=== PATIENT | female | born 1945 | race Caucasian/White ===

== ENCOUNTER 2023-06-01 10:56 | Outpatient (OUT) | payer MEDICARE, OTHER, SELFPAY ==
--- NOTE | 2023-06-01 11:05 | XR_ITS ---
The [address] [address] Patient Name: MAVIS PORTER MRN: [id number] date: 1945 Sex: F Assigned Patient Location: RAD Current Patient Location: RAD Accession/Order Number: [id number] Exam Date: 06/01/2023 11:15 Report Date: 06/01/2023 11:46 At the request of: LAUREN CONNER Procedure: XR chest 2V EXAM: CHEST 2 VIEWS HISTORY: dyspnea on exertion R06.09 TECHNIQUE: PA and lateral views chest. COMPARISON: None. FINDINGS: There is bibasilar atelectasis. Blunted lateral left costophrenic recess may be scarring versus trace effusion. There is no pneumothorax. Pulmonary vasculature is within normal limits. There is aortic atherosclerosis. Heart size within normal limits. XR/XR chest 2V IMPRESSION: 1. Bibasilar atelectasis with possible trace left effusion versus scarring. No consolidation. 2. Atherosclerosis and normal heart size. Negative for pulmonary edema. Electronically authenticated by: CARSON CONLEY Date: 06/01/2023 11:46
--- NOTE | 2023-06-01 11:06 | XR_ITS ---
The [address] [address] Patient Name: MAVIS PORTER MRN: [id number] date: 1945 Sex: F Assigned Patient Location: [facility] Current Patient Location: CARD Accession/Order Number: [id number] Exam Date: 06/01/2023 11:15 Report Date: 06/01/2023 11:35 At the request of: LAUREN CONNER Procedure: XR knee LT 3V PROCEDURE: XR knee LT 3V COMPARISON: None. HISTORY: chronic pain of left knee M25.562, G89.29 FINDINGS: BONES:No acute fracture or dislocation. Moderate to severe tricompartmental osteoarthritis most significant in the anterior and lateral compartments where there is cortical irregularity and marginal osteophyte formation. Chondrocalcinosis. SOFT TISSUES:Negative. No visible soft tissue swelling. EFFUSION:Moderate suprapatellar joint effusion OTHER: Negative. XR/XR knee LT 3V IMPRESSION: Moderate to severe osteoarthritis Electronically authenticated by: MOSHE CALERO Date: 06/01/2023 11:35
== END 2023-06-01 10:57 | disposition home or self-care (01) ==
LOC: RAD 10:57
PROVIDERS: PCP Internal Medicine; Visit Provider Internal Medicine
DX: R06.09 Other forms of dyspnea (principal); M25.562 Pain in left knee; G89.29 Other chronic pain; J98.11 Atelectasis; I70.90 Unspecified atherosclerosis; M17.12 Unilateral primary osteoarthritis, left knee
CPT/HCPCS: 71046; 73562; 93242

== ENCOUNTER 2023-06-01 11:32 | Outpatient (OUT) | payer MEDICARE, OTHER, SELFPAY ==
--- NOTE | 2023-06-01 11:51 | CA_ITS ---
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: : 1945 Requested By: LAUREN CONNER Order Number: [id number] Reading MD: OLESYA GAY Interpretive Statements Predominant rhythm is sinus w/ average rate of 63 bpm Tachycardia - max rate of 134 bpm (PSVT) - 4 episodes of PSVT w/ longest duration of 6 beats Bradycardia - min rate of 42 bpm - longest episode of 2h 25min 49sec with rates between 43-53 bpm Ventricular ectopy - 14 PVC Patient triggered events: none Impression: Predominant rhythm is sinus w/ average rate of 63 bpm Fastest rate of 134 bpm (PSVT) and slowest rate of 42 bpm 14 PVC No atrial fibrillation No pauses or blocks Electronically Signed On 06-12-2023 16:14:58 EST by OLESYA GAY
== END 2023-06-01 11:33 | disposition home or self-care (01) ==
LOC: CARD 11:32
PROVIDERS: PCP Internal Medicine; Visit Provider Internal Medicine
DX: R06.09 Other forms of dyspnea (principal)
CPT/HCPCS: 93242

== ENCOUNTER 2023-06-15 07:59 | Inpatient (IN) | payer MEDICARE, OTHER, SELFPAY ==
[2023-06-15] VITALS (53 sets, daily range): BP systolic 107–194; BP diastolic 47–131; PULSE 69–113; RESP 18–48; TEMP 36.4–37.7; O2SAT 83–100; BMI 29.5; BMI 27.7
--- NOTE | 2023-06-15 | FL_ITS ---
[address] [address] Patient Name: MAVIS PORTER MRN: [id number] date: 1945 Sex: F Assigned Patient Location: SURGOUT Current Patient Location: CA Accession/Order Number: [id number] Exam Date: 06/15/2023 15:00 Report Date: 06/16/2023 08:14 At the request of: RHINA BAPTISTE Procedure: FL fluoroscopy <1hr NON-READ EXAM: FL fluoroscopy <1hr NON-READ HISTORY: Left stent placement TECHNIQUE: FINDINGS: Please see Operative Report. Electronically authenticated by: RADIOLOGIST NO Date: 06/16/2023 08:14
--- OUTSIDE RECORDS SUMMARY | 2023-06-15 08:11 | XMS_ITS | CCD ---
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 Helper Name Role Phone DR ADARSH MANRIQUE Admitting Unavailable DR ADARSH MANRIQUE Attending Unavailable DR ADARSH MANRIQUE Primary Care Unavailable DR ADARSH MANRIQUE Consulting Unavailable DR ASHWIN DUMONT Consulting Unavailable Sohail Grimes Attending Unavailable Sohail Grimes Admitting Unavailable Adarsh Manrique Primary Care Unavailable ADARSH MANRIQUE Attending Unavailable Allergies Allergy Classification Reported Allergen(s) Allergy Type Date of Onset Reaction(s) Facility (1 source) Nitrofurantoin Drug Allergy [facility] Repository (2 sources) Nitrofurantoin; Translations: [nitrofurantoin] Drug Allergy 09-14-19 19 Gastrointestinal Upset [facility] Medications Current Medications Medication Drug Class(es) Dates Sig (Normalized) Sig (Original) acetaminophen 500 mg oral tablet (1 source) Start: 09-29-2018 take 500 mg by mouth every six hours Acetaminophen Active 500 MG PO Q6H 0 September 29, 2018 12:00am aspirin 81 mg delayed release oral tablet (2 sources) Platelet Aggregation Inhibitor, Nonsteroidal Anti-inflammatory Drug Start: 07-26-2018 End: 09-29-2018 take 81 mg by mouth once daily Aspirin Active 81 MG PO Daily September 29, 2018 12:00am atorvastatin 40 mg oral tablet (2 sources) HMG-CoA Reductase Inhibitor Start: 07-26-2018 End: 09-29-2018 take 40 mg by mouth at bedtime Atorvastatin Active 40 MG PO Bedtime September 29, 2018 12:00am calcium carbonate 1250 mg / cholecalciferol 200 unt oral tablet (1 source) Vitamin D Start: 09-29-2018 take 1 tablet by mouth once daily Calcium Carbonate-Vitamin D3 (Oyster Shell Calcium-Vit D3) 500 mg(1,250mg) -200 unit Tablet Active 1 TAB PO Daily September 29, 2018 12:00am chlorhexidine gluconate 1.2 mg/ml mouthwash (2 sources) Start: 09-23-2018 End: 09-29-2018 Chlorhexidine Gluconate Active 15 ML MUCOUS MEM Three times daily 1000 September 29, 2018 12:00am cholecalciferol 0.025 mg oral tablet (2 sources) Vitamin D Start: 09-29-2018 take 1 tablet by mouth once daily Cholecalciferol (Vitamin D3) (Vitamin D3) 1,000 unit Tablet Active 1000 UNIT PO Daily 30 September 29, 2018 12:00am Start: 07-26-2018 End: 09-29-2018 take 1 capsule by mouth once daily Cholecalciferol (Vitamin D3) (Vitamin D3) 1,000 unit Capsule Discontinued 1000 UNIT PO Daily July 26, 2018 1:00am September 29, 2018 1:39pm codeine phosphate 2 mg/ml / guaiFENesin 20 mg/ml oral solution (1 source) Opioid Agonist Start: 11-03-2018 take 1 mL by mouth every four to six hours Codeine-Guaifenesin Active 10 ML PO EVERY 4-6 HOURS 200 November 03, 2018 12:00am docusate sodium 100 mg oral capsule (1 source) Start: 09-29-2018 take 100 mg by mouth twice daily Docusate Sodium Active 100 MG PO Twice daily 60 September 29, 2018 12:00am Lidocaine (1 source) Antiarrhythmic, Amide Local Anesthetic Start: 09-29-2018 apply 1 dose topically once daily Lidocaine (Aspercreme (Lidocaine)) 4 % Adhesive Patch,Medicated Active 1 PATCH TOPICAL Daily 30 September 29, 2018 12:00am Multivitamin With Folic Acid (Thera) 400 mcg Tablet (1 source) Start: 09-29-2018 take 1 tablet by mouth once daily Multivitamin With Folic Acid (Thera) 400 mcg Tablet Active 1 TAB PO Daily 30 September 29, 2018 12:00am omeprazole 20 mg delayed release oral capsule (1 source) Proton Pump Inhibitor Start: 09-29-2018 take 20 mg by mouth once daily Omeprazole Active 20 MG PO Daily 30 September 29, 2018 12:00am ondansetron 4 mg oral tablet (1 source) Serotonin-3 Receptor Antagonist Start: 10-05-2018 take 1 tablet by mouth three to four times daily Ondansetron Hcl (Zofran) 4 mg Tablet Active 4 MG PO 3 to 4 times per day October 05, 2018 12:00am QUEtiapine 25 mg oral tablet (2 sources) Atypical Antipsychotic Start: 09-23-2018 End: 09-29-2018 take 12.5 mg by mouth once daily at bedtime Quetiapine Active 12.5 MG PO Daily at bedtime 15 September 29, 2018 12:00am sennosides, fpc 8.6 mg oral tablet (1 source) Start: 09-29-2018 take 2 tablets by mouth once daily Sennosides (Senna Lax) 8.6 mg Tablet Active 2 TAB PO DAILY@12 60 September 29, 2018 12:00am topiramate 25 mg oral tablet (2 sources) Start: 07-26-2018 End: 09-29-2018 take 1 tablet by mouth once daily Topiramate (Topamax) 25 mg Tablet Active 25 MG PO Daily 30 September 29, 2018 12:00am Completed/Discontinued Medications Medication Drug Class(es) Dates Sig (Normalized) Sig (Original) acetaminophen 325 mg / HYDROcodone bitartrate 5 mg oral tablet (2 sources) Opioid Agonist Start: 9 End: 9 take 2 tablets by mouth every six hours Hydrocodone-Acetamino phen Discontinued 2 TAB PO Every 6 hours 56 7 September 23, 2018 September 29, 2018 1:39pm benzonatate 100 mg oral capsule (2 sources) Non-narcotic Antitussive Start: 9 End: 9 take 1 capsule by mouth three times daily Benzonatate (Tessalon Perles) 100 mg Capsule Discontinued 100 MG PO Three times daily 60 20 November 03, 2018 12:00am November 03, 2018 4:24pm Calcium Carb And Citrate-Vitd3 (Citracal-D3 Slow Release) 600 mg calcium- 500 unit Tablet Extended Release (1 source) Start: 9 End: 9 take 1 tablet by mouth once daily Calcium Carb And Citrate-Vitd3 (Citracal-D3 Slow Release) 600 mg calcium- 500 unit Tablet Extended Release Discontinued 1 TAB PO Daily September 13, 2018 12:00am September 29, 2018 1:39pm Calcium Phosphate-Vitamin D3 (Citracal-D3 Gummies) 250 mg calcium- 500 unit Tablet,Chewable (1 source) Start: 9 End: 9 take 1 tablet by mouth once daily Calcium Phosphate-Vitamin D3 (Citracal-D3 Gummies) 250 mg calcium- 500 unit Tablet,Chewable Discontinued 1 TAB PO Daily July 26, 2018 1:00am September 13, 2018 2:27pm cephalexin 500 mg oral capsule (1 source) Cephalosporin Antibacterial Start: 9 End: 9 take 500 mg by mouth four times daily Cephalexin Discontinued 500 MG PO Four times daily 16 4 September 23, 2018 12:00am September 29, 2018 1:39pm heparin sodium, porcine 5000 unt/ml injectable solution (1 source) Unfractionated Heparin, Anti-coagulant Start: 9 End: 9 inject 5000 [IU] by subcutaneous injection every twelve hours Heparin (Porcine) Discontinued 5000 UNIT SUBCUT Every 12 hours September 23, 2018 12:00am September 29, 2018 1:39pm methylPREDNISolone 4 mg oral tablet (1 source) Corticosteroid Start: 9 End: 9 take 24 mg by mouth once daily Methylprednisolone Discontinued 24 MG PO Daily September 23, 2018 12:00am September 29, 2018 1:39pm Multivitamin (Multiple Vitamins) Tablet (1 source) Start: 9 End: 9 take 1 tablet by mouth once daily Multivitamin (Multiple Vitamins) Tablet Discontinued 1 TAB PO Daily August 03, 2018 1:00am September 29, 2018 1:39pm oxyCODONE hydrochloride 5 mg oral tablet (1 source) Opioid Agonist Start: 9 End: 9 take 5 mg by mouth every four hours Oxycodone Discontinued 5 MG PO Every 4 hours 28 7 September 29, 2018 November 03, 2018 3:43pm raNITIdine 150 mg oral tablet (1 source) Histamine-2 Receptor Antagonist Start: 9 End: 9 take 1 tablet by mouth twice daily Ranitidine Hcl (Zantac) 150 mg tablet Discontinued 150 MG PO Twice daily August 12, 2018 12:00am September 13, 2018 2:29pm Problems Problem Classification Problem Date Documented Date Episodic/Chronic Administrative/socia l admission (1 source) Other reduced mobility; Translations: [Impaired mobility and activities of daily living] 02-23-2019 Episodic Calculus of urinary tract (1 source) Kidney stone; Translations: [Calculus of kidney] 02-23-2019 Episodic Cancer of bronchus; lung (3 sources) Malignant tumor of lung; Translations: [Malignant neoplasm of unspecified part of left bronchus or lung] 02-23-2019 Chronic Disorders of lipid metabolism (1 source) Hyperlipidemia; Translations: [Hyperlipidemia, unspecified] 02-23-2019 Chronic Diverticulosis and diverticulitis (1 source) Diverticular disease; Translations: [Diverticulosis of intestine, part unspecified, without perforation or abscess without bleeding] 02-23-2019 Chronic Esophageal disorders (1 source) Gastroesophageal reflux disease; Translations: [Gastro-esophageal reflux disease without esophagitis] 02-23-2019 Chronic Headache; including migraine (1 source) Migraine; Translations: [Migraine, unspecified, not intractable, without status migrainosus] 02-23-2019 Chronic Neoplasms of unspecified nature or uncertain behavior (1 source) Neoplastic disease of uncertain behavior; Translations: [Neoplasm of uncertain behavior, unspecified] 10-06-2018 Episodic Other endocrine disorders (1 source) Disorder of adrenal gland; Translations: [Disorder of adrenal gland, unspecified] 11-04-2018 Chronic Other injuries and conditions due to external causes (1 source) Injury of face; Translations: [Unspecified injury of face, initial encounter] 02-23-2019 Episodic Other nervous system disorders (1 source) Postoperative pain ; Translations: [Other acute postprocedural pain] 02-23-2019 Episodic Other screening for suspected conditions (not mental disorders or infectious disease) (4 sources) Encounter for screening mammogram for malignant neoplasm of breast; Translations: [ENC SCR MAMMO MALIG NEOPLASM BREAST] Onset: 08-24-2022 Episodic Residual codes; unclassified (1 source) Family history of malignant neoplasm of other organs or systems; Translations: [FAM HX MALIG NEOPLASM OTH ORGN/SYS] Onset: 08-27-2022 Episodic Residual codes; unclassified (1 source) Patient encounter status; Translations: [Encounter for prophylactic measures, unspecified] 02-23-2019 Episodic Residual codes; unclassified (1 source) History of thoracic surgery; Translations: [Other specified postprocedural states] 02-23-2019 Episodic Thyroid disorders (1 source) Thyroid nodule; Translations: [Nontoxic single thyroid nodule] 02-23-2019 Chronic Unclassified (1 source) R91.1 - Solitary pulmonary nodule; Translations: [R91.1 - Solitary pulmonary nodule] Onset: 04-30-2021 Urinary tract infections (1 source) Urinary tract infectious disease; Translations: [Urinary tract infection, site not specified] 02-23-2019 Episodic Results Test Name Value Interpretation Reference Range Facil ity MG MAMM SCREEN 3D MARCOS CADon 08-24-2022 MG MAMM SCREEN 3D MARCOS CAD Patient: MAVIS PORTER Exam Date: 08/24/2022 : 1945 Gender:F Ordering : DR ADARSH MANRIQUE M.D. Admission #: [id number] Family : Order #: [id number] CLICK HERE TO VIEW EXAM RADIOLOGY REPORT PROCEDURE: MAMMOGRAM SCREENING 3D BILATERAL CAD COMPARISON: MG MAMM MARCOS DIAG W CAD, 06/24/2020. MG MAMM LT DIAG W CAD, 12/13/2019. MG MAMM SCREEN MARCOS W CAD, 01/03/2015. INDICATIONS: Screening mammography Calculator Name NCI Breast Cancer Risk Assessment Tool 5 Year Breast Cancer Risk 3.30% Lifetime Breast Cancer Risk 6.70% Personal Breast Cancer No Personal Ovarian Cancer No Treatments None Family Cancers Brother with mouth cancer at age 70. LOCATION: [facility] BREAST COMPOSITION: Heterogeneously dense,which may obscure small masses. FINDINGS: DIAGNOSTIC CATEGORY 2--BENIGN FINDING: RIGHT BREAST: No significant suspicious finding. Scattered benign-appearing calcifications are present. No significant change has occurred. LEFT BREAST: No significant suspicious finding. Scattered benign-appearing calcifications are present. Resolution of previously seen cyst within lower-outer quadrant. RECOMMENDATIONS: ROUTINE MAMMOGRAM AND CLINICAL EVALUATION IN 12 MONTHS. PLEASE NOTE: A NORMAL MAMMOGRAM DOES NOT EXCLUDE THE POSSIBILITY OF BREAST CANCER. A CLINICALLY SUSPICIOUS PALPABLE LUMP SHOULD BE BIOPSIED. Dictated by: Ashwin Dumont M.D. on 08/24/2022 at 12:06 Approved by: Ashwin Dumont M.D. on 08/24/2022 at 12:10 [place] [facility] RAD - MISCon 03-11-2021 RAD - MISC [id number] 0CD:127 [facility] Reminderson 03-05-2021 Reminders - From: Danyell Alvarado To: EU - Clinical; Sent: 03/03/2021 14:31:05 EDT Show up: 03/04/2021 14:30:00 EDT Subject: KUB Due Date/Time: 03/05/2021 14:30:00 EDT Reminder/Recall SHOW PRW KUB done 03/04/21 at [facility] pt may need repeat ESWL on 03/06/21 Message sent to PRW to review KUB [facility] RAD - MISCon 03-04-2021 RAD - MISC [id number] 0CD:127 [facility] RAD - MISC [id number] 0CD:127 [facility] Operative Reporton Operative Report [id number] 0CD:127 [facility] Lab Reportson 02-25-2021 Lab Reports [id number] 0CD:127 [facility] Consultation Noteon 02-07-20 Consultation Note [id number] 0CD:127 [facility] Lab Reportson 01-22-2021 Lab Reports [id number] 0CD:127 [facility] ECG 12-Leadon 01-17-2021 ECG 12-Lead [id number] CD:127 [facility] Lab Reportson 01-17-2021 Lab Reports [id number] 0CD:127 [facility] RAD - Ultrasound Reporton RAD - Ultrasound Report [id number] 0CD:127 [facility] Reminderson 01-16-2021 Reminders - From: Danyell Alvarado To: EU - Clinical; Sent: 01/10/2021 10:04:40 EDT Show up: 01/14/2021 10:04:00 EDT Subject: renal US Due Date/Time: 01/17/2021 10:04:00 EDT Reminder/Recall Order was faxed to [facility] to sched pt for renal US (I had left 2 messages but could not get anyone on the phone to schedule) They will call pt to schedule. Show PRW results, pt scheduled for ESWL renal us scanned in the chart today 01/14/21 US scanned to chart is from 2019. L/m on [facility] central sched to see if they schedule this appt with pt.LG [facility] Ambulatory Clinical Summaryo n 01-06-2021 Ambulatory Clinical Summary {[id number]}CD:[id number] [facility] Patient Educationon 01-07-20 Patient Education Urology Kidney Stones Kidney stones are rock-like masses that form inside of the kidneys. Kidneys are organs that make pee (urine). A kidney stone may move into other parts of the urinary tract, including: ? The tubes that connect the kidneys to the bladder (ureters). ? The bladder. ? The tube that carries urine out of the body (urethra). Kidney stones can cause very bad pain and can block the flow of pee. The stone usually leaves your body (passes) through your pee. You may need to have a doctor take out the stone. What are the causes? Kidney stones may be caused by: ? A condition in which certain glands make too much parathyroid hormone (primary hyperparathyroidism). ? A buildup of a type of crystals in the bladder made of a chemical called uric acid. The body makes uric acid when you eat certain foods. ? Narrowing (stricture) of one or both of the ureters. ? A kidney blockage that you were born with. ? Past surgery on the kidney or the ureters, such as gastric bypass surgery. What increases the risk? You are more likely to develop this condition if: ? You have had a kidney stone in the past. ? You have a family history of kidney stones. ? You do not drink enough water. ? You eat a diet that is high in protein, salt (sodium), or sugar. ? You are overweight or very overweight (obese). What are the signs or symptoms? Symptoms of a kidney stone may include: ? Pain in the side of the belly, right below the ribs (flank pain). Pain usually spreads (radiates) to the groin. ? Needing to pee often or right away (urgently). ? Pain when going pee (urinating). ? Blood in your pee (hematuria). ? Feeling like you may vomit (nauseous). ? Vomiting. ? Fever and chills. How is this treated? Treatment depends on the size, location, and makeup of the kidney stones. The stones will often pass out of the body through peeing. You may need to: ? Drink more fluid to help pass the stone. In some cases, you may be given fluids through an IV tube put into one of your veins at the hospital. ? Take medicine for pain. ? Make changes in your diet to help keep kidney stones from coming back. Sometimes, medical procedures are needed to remove a kidney stone. This may involve: ? A procedure to break up kidney stones using a beam of light (laser) or shock waves. ? Surgery to remove the kidney stones. Follow these instructions at home: Medicines ? Take [id number] and prescription medicines only as told by your doctor. ? Ask your doctor if the medicine prescribed to you requires you to avoid driving or using heavy machinery. Eating and drinking ? Drink enough fluid to keep your pee pale yellow. You may be told to drink at least 8?10 glasses of water each day. This will help you pass the stone. ? If told by your doctor, change your diet. This may include: ? Limiting how much salt you eat. ? Eating more fruits and vegetables. ? Limiting how much meat, poultry, fish, and eggs you eat. ? Follow instructions from your doctor about eating or drinking restrictions. General instructions ? Collect pee samples as told by your doctor. You may need to collect a pee sample: ? 24 hours after a stone comes out. ? 8?12 weeks after a stone comes out, and every 6?12 months after that. ? Strain your pee every time you pee (urinate), for as long as told. Use the strainer that your doctor recommends. ? Do not throw out the stone. Keep it so that it can be tested by your doctor. ? Keep all follow-up visits as told by your doctor. This is important. You may need follow-up tests. How is this prevented? To prevent another kidney stone: ? Drink enough fluid to keep your pee pale yellow. This is the best way to prevent kidney stones. ? Eat healthy foods. ? Avoid certain foods as told by your doctor. You may be told to eat less protein. ? Stay at a healthy weight. Where to find more information ? National Kidney Foundation (NKF): www.kidney.org ? U[employer] Care Foundation (UCF): www.urologyhealth.org Contact a doctor if: ? You have pain that gets worse or does not get better with medicine. Get help right away if: ? You have a fever or chills. ? You get very bad pain. ? You get new pain in your belly (abdomen). ? You pass out (faint). ? You cannot pee. Summary ? Kidney stones are rock-like masses that form inside of the kidneys. ? Kidney stones can cause very bad pain and can block the flow of pee. ? The stones will often pass out of the body through peeing. ? Drink enough fluid to keep your pee pale yellow. This information is not intended to replace advice given to you by your health care provider. Make sure you discuss any questions you have with your health care provider. Document Released: 11/02/2008 Document Revised: 10/03/2019 Document Reviewed: 10/03/2019 Elsevier Patient Education ? 2019 [employer] Airam Deras [facility] Urology Office/Clinic Noteon 01-06-2021 Urology Office/Clinic Note Chief Complaint 1 year f/u HPI Staff Pt is here for 1 year f/u. Previous dx of personal hx of kidney stones. Most current KUB done 07/30/2020 showed left nephrolithiasis, a large oval calcification at the superior margin of the left kidney, likely external to the kidney. Dysuria: no Incomplete bladder emptying: no Hematuria: no Frequency: every 2-3 hours Urgency: no Nocturia: 1x Stream: moderate with no straining Leaking: very little Post void dripping: very little Wearing pads/ Depends: no Urge incontinence: no Stress incontinence: yes Incontinence without Sensory Awareness: no Abdominal pain: pt states a little tenderness Flank pain: no Sexual complaints: no History of Present Illness Reviewed UA and KUB. There have been no associated fever, chills, flank pain or blood in the urine. Pt. denies any pain/burning with urination at this time. Review of Systems PHQ Score Initial Depression Screen Score: 0 ROS - Provider Constitutional: denies weight loss, denies hot flashes. Eyes: denies eye problems. Gastrointestinal: denies nausea, denies vomiting. Cardiovascular: denies chest pain or angina. Integumentary: no dryness Musculoskeletal: denies musculoskeletal symptoms. ENMT: denies otolaryngeal symptoms. Respiratory: no shortness of breath. Heme/Lymph: denies easy bleeding tendency, denies easy bruising tendency. Psychiatric: no confusion, no anxiety. Genitourinary: denies vaginal discharge, denies incontinence, denies dysuria, denies hematuria, denies urinary frequency, denies amenorrhea, denies menorrhagia, denies abnormal bleeding, denies pelvic pain, denies genital sores, and denies decreased libido. Physical Exam Vitals & Measurements HR: 63(Peripheral) RR: 16 BP: 141/67 HT: 153.0 cm HT: 153 cm WT: 75.0 kg WT: 75 kg BMI: 32.04 General Appearance: alert , no acute distress, well nourished, well developed female. Genitourinary: bladder nonpalpable, no flank pain. Assessment/Plan 1. Kidney stone (N20.0: Calculus of kidney) KUB done on 07/30/2020 shows several small stones of the left kidney along with an oval 20 x 14mm hyperdense structure at the superior margin of the left kidney. To verify if the stone is in the kidney, will have pt. obtain a renal us. Once verified, we'll go forward w/ Lt. ESWL/possible stent placement. The procedure risks, benefits, details and treatment alternatives have been discussed with the patient. These include blood in the urine, infection, bleeding around the kidney, kidney bruising, inability to break up the stone, need for blood transfusion, blockage from stone fragments, and need for additional procedures, among others. Full informed consent has been obtained. Will order General anesthesia. 2. UTI (urinary tract infection) (N39.0: Urinary tract infection, site not specified) she is feeling run down. Pos. UA today. Will start pt. on Keflex 500mg bid for 1wk. Discussed the medication side effects, and the patient will monitor closely for these, as well as for symptom improvement. If severe side effects occur, the medication should be stopped and the office notified. Script sent to [facility]. I have reviewed the previous health record information and history for this pt. from Dr. Sandy. Follow-up With When Contact Information VIKA JOHNS, Sukumar Hightower, URL [address] [place] [address]- [phone] Additional Instructions: Patient Education Kidney Stones, Witk-qa-[id number] I, Pricilla Bernal , personally scribed for Dr. Sandy on 01/06/2021 11:40:19. . Documentation recorded by the scribe, Pricilla Bernal, accurately reflects the services(s) I performed and decisions made by me. Authenticated by Dr. Sandy on 01/06/2021 11:41:44. Problem List/Past Medical History Ongoing Acute head injury Atypical migraine Cancer of abdomen cyst Hyperlipidemia Hypertension Kidney stone Personal history of kidney stones UTI (urinary tract infection) UTI symptoms Historical No qualifying data Procedure/Surgical History Biopsy of breast, Colonoscopy, Cystoscopy, History of tonsillectomy. Medications aspirin 81 mg oral tablet, Oral, Daily atorvastatin, Oral, Daily Citracal Plus Bone Density Builder, Oral, Daily Keflex 500 mg Cap, 500 mg= 1 cap(s), Oral, BID latanoprost ophthalmic, qPM Simbrinza 0.2%-1% ophthalmic suspension, BID topiramate, 25 mg, Oral Vitamin D3 Allergies No Known Allergies Social History Tobacco Never (less than 100 in lifetime) Tobacco Use:., 01/01/2020 Family History Diabetes mellitus type 1: Mother and Father. Heart disease: Father. Hypertension: Mother. Stroke: Mother. Immunizations Vaccine Date Status SARS-CoV-2 (COVID-19) mRNA BNT-162b2 vax 08/15/2020 Recorded SARS-CoV-2 (COVID-19) mRNA BNT-162b2 vax 07/25/2020 Recorded Lab Results Ambulatory Point of Care Results Bilirubin Urine Dipstick: Negative (01/06/21 (more content not included)... [facility] Comment on above: Result Comment: Elec tronically Signed By: Sukumar SANDY MD\.br\Date and Time Signed: 01/06/21 11:41 EDT\.br\Electronically Co-Signed By: Pricilla Bernal MA\.br\Date and Time Co-Signed: 01/06/21 11:40 EDT RAD - MISCon 07-30-2020 RAD - MISC [id number] 0CD:127 [facility] Encounters Encounter Date Encounter Type Care Provider Facility Start: 05-26-2023 End: 05-26-2023 ambulatory ADARSH MANRIQUE Not Available Start: 08-24-2022 End: 08-25-[address] ADARSH MANRIQUE Facility: Start: 04-30-2021 End: 04-30-2021 [facility] Payers Date Payer Category Payer Self-pay [id number] 1958 Medicare [id number] 1958 Private Health Insurance [id number] 1945 Unknown [id number] 1945 Unknown [id number] Unknown [id number] Conversion Insurance [id number] Unknown [id number] Social History Date Type Detail Facility Tobacco smoking stat [facility] Unknown if ever smoked [facility] Work Phone: Start: 1945 Sex Assigned At Female F [facility] Medical Equipment Procedure Code Equipment Code Equipment Origin al Text Equipment Identifier Dates Thoracotomy PROGEL PLEURAL A IR LEAK FDA Start: 09-20-2018 Evaluation note Note Date & Type Note Facility Evaluation note No assessment information availa ble [facility] Work Phone: Summary Purpose Family History No Family History Records Found Relationship Condition Age at Onset Recorded Date/T dianna father Type 2 diabetes mellitus Unknown Myocardial infarction Unknown Hypertension Unknown Not Specified Type 2 diabetes mellitus Unknown Congestive heart failure Unknown Cerebrovascular accident (CVA) Unknown sister Malignant neoplasm of breast Unknown brother Malignant neoplasm of throat Unknown Cardiac disease Unknown brother Myocardial infarction Unknown Advance Directives No Advanced Directives Records FoundNo Advanced Directives Records FoundNo Advanced Directives Records FoundNo Advanced Directives Records Found Additional Source Comments INFORMATION SOURCE (unrecogn ized section and content) DATE CREATED AUTHOR 03/12/2021 [facility] DATE CREATED AUTHOR AUTHOR'S ORGANIZ ATION 09/01/[address] DATE CREATED AUTHOR AUTHOR'S ORGANIZ ATION 01/30/2023 [facility] DATE CREATED AUTHOR AUTHOR'S ORGANIZ ATION 05/27/2023 [facility] EPIC Goals (unrecognized section and content) Goals may be documented in a n alternate section FOR RECORDS PERTAINING TO PATIENTS WHO ARE OR HAVE BEEN ENROLLED IN A CHEMICAL DEPENDENCY/SUBSTANCEABUSE PROGRAM, SOME INFORMATION MAY BE OMITTED. This clinical summary was aggregated from multiple sources. Caution should be exercised in using it in the provision of clinical care. This summary normalizes information from multiple sources, and as a consequence, information in this document may materially change the coding, format and clinical context of patient data. In addition, data may be omitted in some cases. CLINICAL DECISIONS SHOULD BE BASED ON THE PRIMARY CLINICAL RECORDS. [employer] provides no warranty or guarantee of the accuracy or completeness of information in this document.
--- NOTE | 2023-06-15 08:25 | CT_ITS ---
The [address] [address] Patient Name: MAVIS PORTER MRN: [id number] date: 1945 Sex: F Assigned Patient Location: ER Current Patient Location: ER Accession/Order Number: [id number] Exam Date: 06/15/2023 09:15 Report Date: 06/15/2023 10:05 At the request of: TALISHA KEVIN Procedure: CT abdomen pelvis w con EXAM: CT abdomen pelvis w con HISTORY: pain left side abdominal pain, nausea for one day COMPARISON: CT abdomen and CT pelvis studies dated 05/12/2019 TECHNIQUE: CT abdomen and CT pelvis studies were performed with the use of intravenous contrast. Multiple axial images were obtained. Reformatted coronal and sagittal images were obtained and reviewed. FINDINGS: Abdomen: Likely mild to moderate atelectatic and/or fibrotic changes in the right lower lung field with minimal changes in the left lower lung field. Infiltrative changes would be less likely. Views of the liver demonstrate a 0.8 cm area of decreased attenuation in the inferior right lobe compatible with cyst slightly increased in size since prior exam. Likely small 0.6 cm cyst in the superior left kidney similar to the prior study. Gallbladder appears grossly unremarkable. Adrenal glands appear grossly unremarkable. Pancreas appears grossly unremarkable. Stomach appears grossly unremarkable. Bowel loops appear grossly unremarkable. Atherosclerotic calcifications within portions of the abdominal aorta. No evidence of aneurysm. No evidence of adenopathy in the retroperitoneum. Likely few scattered right renal cysts measuring up to 1 cm with likely few parapelvic right renal cysts measuring up to 1.2 cm. Likely a few small nonobstructive right renal calculi measuring 2 mm duplicated right renal collecting system is noted. With ureters appearing to join proximally. Multiple scattered nonobstructive left renal calculi measuring up to 4 mm. Moderate parapelvic left renal cysts likely fairly similar to prior study. A few small areas of decreased attenuation in the left kidney measuring 0.6 cm or less to small qualify with certainty though likely representing cysts. There is interval likely mild to moderate left hydronephrosis and proximal left hydroureter to the level of an approximately 6 x 4 x 4 mm calculus in the proximal left ureter with the smaller adjacent calculus superior to it, the larger calculus likely causes early and/or moderate obstructive uropathy on the left. Dense left renal nephrogram on delayed images without contrast in the left renal pelvis or ureter on delayed images. Mild enhancement of the left renal pelvis and proximal left ureteral wall may be related to mild ureteritis. Obstructing calculus noted on series 4 axial image 65. Tiny fat filled umbilical hernia without bowel content. Pelvis: No obvious distal ureteral calculus. No obvious bladder calculus or mass. No significant bladder wall thickening. Uterus appears grossly unremarkable. Nonspecific right adnexal calcification similar to prior study not felt to be acutely significant. Increased pelvic vascularity along the left uterine wall which can be correlated for pelvic congestion syndrome, this appears mildly increased since prior exam. Perirectal fat planes appear grossly intact. Mild diverticulosis of the sigmoid colon without acute diverticulitis. Vascular calcifications within portions of the iliofemoral arteries. No evidence of aneurysm. No evidence of adenopathy. The appendix is visualized and appears unremarkable. Bilateral spondylolysis at L5 without obvious associated spondylolisthesis at L5-S1. Moderate degenerative changes in the lumbar spine with slight convexity to the right. Mild degenerative changes about the hip joints. CT/CT abdomen pelvis w con IMPRESSION: CT abdomen and CT pelvis studies demonstrate early and/or moderate obstructive uropathy on the left secondary to an approximately 6 x 4 x 4 mm calculus in the proximal left ureter with a smaller adjacent calculus superior to it. Bilateral nonobstructive renal calculi more prominent and numerous on the left as noted. Bilateral parapelvic renal cysts more prominent on the left. A few small cortical cysts bilaterally. Colon diverticulosis without definite evidence of acute diverticulitis. Increased vascularity along the left uterine wall, nonspecific, correlate for possible pelvic congestion syndrome. Tiny fat filled umbilical hernia similar to the prior study. Likely small hepatic cyst. Likely small splenic cyst. Electronically authenticated by: BEN OCHOA Date: 06/15/2023 10:05
--- NOTE | 2023-06-15 08:27 | ED.GENADUL1 ---
HPI - General Adult General Chief complaint: Abdominal Pain Stated complaint: ABD PAIN Time Seen by Provider: 06/15/23 08:20 Source: patient Mode of arrival: walk-in Limitations: no limitations History of Present Illness HPI narrative: Patient is a 78-year-old female who is presenting to the Emergency Room today with chief complaint of left lower quadrant pain this started last evening. Patient's also been having nausea and vomiting/dry heaving since last evening as well. Patient has old had one abdominal surgery in her past, it was approximately 3 years ago For diverticulitis. Patient had a surgery here. Patient has recently had a Holter monitor as well because placed by Dr. Manrique. Patient still has her gallbladder, appendix, uterus and ovaries. Patient has no chest pain or shortness of breath. Patient states that she did have a kidney stone, approximate 5-10 years ago. Patient had urinary dysuria as well. Patient's sister is at bedside. Patient states that she is somewhat forgetful to her medical history secondary previous accident with brain injury. Patient was a home by herself. Other acute complaints. . All systems are negative except as noted/marked. All systems reviewed and otherwise negative. . Nurses note and vital signs reviewed and patient is not hypoxic. General: The patient appears Mild distress secondary to pain, nausea intermittent dry heaving/spitting up.. Patient is resting uncomfortably on cart. Patient is not toxic, lethargic, or listless Skin: Warm, dry, no pallor noted. There is no rash noted. No petechiae, purpura. Head: Normocephalic, atraumatic Eye: Normal conjunctiva, no drainage, EOMI. PERRL; Chronic left eye changes Ears, Nose, Mouth, and Throat: oral mucosa is moist. Nares patent. Mouth without vesicles. Cardiovascular: Regular Rate and Rhythm, no murmur, gallop, rub Respiratory: Patient is in no distress, no accessory muscle use, lungs are clear to auscultation, no wheezing, rales or rhonchi Back: non-tender, no CVA tenderness bilaterally to percussion. No CT LS midline pain GI: soft, obese, mod LLQ and mild left flank TTP, othewise no tenderness to palpation, no masses appreciated. No rebound, guarding, or rigidity noted. No flank pain bilateral, No distention. Mild suprapubic tenderness palpation. Musculoskeletal: Patient has full range of motion of all of the extremities, no motor, sensory, or focal neurological deficits Neurological: A&O x3, normal speech Psychiatric: Cooperative Related Data Home Medications Medication Instructions Recorded Confirmed atorvastatin 40 mg tablet 40 mg PO DAILY 06/15/23 06/15/23 omeprazole 40 mg capsule,delayed 40 mg PO DAILY 06/15/23 06/15/23 release topiramate 25 mg tablet 25 mg PO Q12H 06/15/23 06/15/23 Allergies Allergy/AdvReac Type Severity Reaction Status Date / Time No Known Drug Allergies Allergy Verified 06/15/23 08:08 Exam Constitutional Vital Signs, click to edit/add: Last Vital Signs Temp 97.5 F L 06/15/23 08:08 Pulse 74 06/15/23 08:08 Resp 18 06/15/23 08:08 BP 185/84 H 06/15/23 13:30 Pulse Ox 94 L 06/15/23 12:28 O2 Del Method Room Air 06/15/23 08:08 Course Vital Signs Vital signs: Vital Signs Temperature 97.5 F L 06/15/23 08:08 Pulse Rate 74 06/15/23 08:08 Respiratory Rate 18 06/15/23 08:08 Blood Pressure 183/93 H 06/15/23 08:08 Pulse Oximetry 96 06/15/23 08:08 Oxygen Delivery Method Room Air 06/15/23 08:08 Temperature 97.5 F L 06/15/23 08:08 Pulse Rate 74 06/15/23 08:08 Respiratory Rate 18 06/15/23 08:08 Blood Pressure 185/84 H 06/15/23 13:30 Pulse Oximetry 94 L 06/15/23 12:28 Oxygen Delivery Method Room Air 06/15/23 08:08 Medical Decision Making [facility] Narrative Medical decision making narrative: Patient had IV established, was given Zofran, Compazine, Toradol, and morphine. Patient will be given IV fluids, check lab work and also CT of the abdomen and pelvis. Patient's BUN is slightly elevated, creatinine normal. Patient has no significant elevation of white blood cell count, no bands. Patient Zofran, Compazine, Toradol, morphine has helped with nausea and pain. Patient was given 1 L of IV fluid. Patient has nitrates in her urine, patient was given 1 g Rocephin. [address] Crews To discuss patient's case. [address] Crews and she stated that patient could have a stent placed this afternoon. Patient agrees with this. Patient is not diabetic, only a baby aspirin a day. Patient has had nothing needed drink since last night. She had nothing to eat or drink at home this morning. Patient will remain nothing by mouth. Patient will be sent to surgery and Dr. Crews will be here in several hours after she finishes a procedure at [facility]'s 1440 Patient was taken to surgery by surgical staff. Daughter was at bedside. Patient was given a 2nd dose of Zofran help with some nausea, she did not want any additional pain medication. Patient had no other acute, locations. Lab Data Labs: Lab Results 06/15/23 Range/Units 08:30 WBC 11.8 H (4.0-11.0) 10^3/uL RBC 4.73 (4.20-5.40) 10^6/uL Hgb 14.3 (12.0-16.0) g/dL Hct 42.4 (36.0-48.0) % MCV 89.6 (81.0-99.0) fL MCH 30.2 (26.7-34.0) pg MCHC 33.7 (29.9-35.2) g/dL RDW 13.5 (11.0-15.0) % Plt Count 493 H (150-450) 10^3/uL MPV 9.9 (9.5-13.5) fL Neut % (Auto) 87.4 H (43.0-75.0) % Lymph % (Auto) 7.9 L (20.5-60.0) % Pike % (Auto) 3.1 (1.7-12.0) % Eos % (Auto) 0.3 L (0.9-7.0) % Baso % (Auto) 0.6 (0.2-2.0) % Neut # (Auto) 10.3 H (1.4-6.5) 10^3/uL Lymph # (Auto) 0.9 L (1.2-3.8) 10^3/uL Pike # (Auto) 0.4 (0.3-0.8) 10^3/uL Eos # (Auto) 0.0 (0.0-0.7) 10^3/uL Baso # (Auto) 0.1 (0.0-0.1) 10^3/uL Abs Immat Gran (auto) 0.08 H (0.00-0.03) 10^3/uL Imm/Tot Granulo (auto) 0.7 H (0.0-0.5) % Sodium 140 (136-145) mmol/L Potassium 3.9 (3.5-5.1) mmol/L Chloride 102 (98-107) mmol/L Carbon Dioxide 25.0 (21.0-32.0) mmol/L Anion Gap 16.9 BUN 19.0 H (7.0-18.0) mg/dL Creatinine 0.72 (0.55-1.02) mg/dL Est GFR ( Amer) >60 (>=60) Est GFR (Non-Af Amer) >60 (>=60) BUN/Creatinine Ratio 26.4 Glucose 116 H (74-106) mg/dL Lactate 1.2 (0.4-2.0) mmol/L Calcium 10.3 H (8.5-10.1) mg/dL Total Bilirubin 0.5 (0.2-1.0) mg/dL AST 13 L (15-37) U/L ALT 23 (14-59) U/L Alkaline Phosphatase 93 (46-116) U/L Troponin I High Sens 4.3 (4.0-51.3) pg/mL Total Protein 7.7 (6.4-8.2) g/dL Albumin 4.1 (3.4-5.0) g/dL Globulin 3.6 g/dL Albumin/Globulin Ratio 1.1 Lipase 26.0 (16.0-77.0) U/L Urine Color Lt. yellow (YELLOW) Urine Clarity Clear (CLEAR) Urine pH 7.5 (5.0-9.0) Ur Specific [place] 1.010 (1.005-1.025) Urine Protein Negative (NEG/TRACE) mg/dL Urine Glucose (UA) Negative (NEGATIVE) mg/dL Urine Ketones Negative (NEGATIVE) mg/dL Urine Occult Blood Small A (NEGATIVE) Urine Nitrite Positive A (NEGATIVE) Urine Bilirubin Negative (NEGATIVE) Urine Urobilinogen 0.2 (0.2-1.0) EU/dL Ur Leukocyte Esterase Small A (NEGATIVE) Urine RBC 5-10 A (0-2) #/HPF Urine WBC 10-20 A (NONE SEEN) #/HPF Ur Squamous Epith Cells Few A (NONE/RARE) #/LPF Urine Crystals Seen A (None Seen) #/HPF Amorphous Sediment Few Urine Bacteria Large A (NONE SEEN) #/HPF Urine Mucus None seen (NONE SEEN) Discharge Plan Discharge Chief Complaint: Abdominal Pain Clinical Impression: Hydronephrosis, Calculus of kidney, Hydroureter, Nausea Patient Disposition: Admitted as Observation Time of Disposition Decision: 13:01 Condition: Fair Discharge Date/Time: 06/15/23 14:25
[2023-06-15] MEDS: LACTATED RINGER'S SOLUTION 1,000 ML 50 ML IV (08:41)
[2023-06-15] MEDS: MORPHINE SULFATE 2 MG/ML SYRINGE IV ×2 (08:43→08:45)
[2023-06-15] MEDS: ONDANSETRON PF 4 MG/2 ML VIAL IV ×2 (08:43→14:16)
[2023-06-15 08:45] LABS: Basophils Absolute Auto 0.1 10^3/uL (0.0-0.1); Basophils Percent Auto 0.6 % (0.2-2.0); Eosinophils Percent Auto 0.3 % (0.9-7.0); Hematocrit 42.4 % (36.0-48.0); Hemoglobin 14.3 g/dL (12.0-16.0); Immature Granulocytes Abs Auto 0.08 10^3/uL (0.00-0.03); Immature Granulocytes Pct Auto 0.7 % (0.0-0.5); Lymphocytes Absolute Auto 0.9 10^3/uL (1.2-3.8); Lymphocytes Percent Auto 7.9 % (20.5-60.0); Mean Corpuscular HGB Conc 33.7 g/dL (29.9-35.2); Mean Corpuscular Hemoglobin 30.2 pg (26.7-34.0); Mean Corpuscular Volume 89.6 fL (81.0-99.0); Mean Platelet Volume 9.9 fL (9.5-13.5); Monocytes Absolute Auto 0.4 10^3/uL (0.3-0.8); Monocytes Percent Auto 3.1 % (1.7-12.0); Neutrophils Absolute Auto 10.3 10^3/uL (1.4-6.5); Neutrophils Percent Auto 87.4 % (43.0-75.0); Platelet Count 493 10^3/uL (150-450); Red Blood Count 4.73 10^6/uL (4.20-5.40); Red Cell Distribution Width 13.5 % (11.0-15.0); White Blood Count 11.8 10^3/uL (4.0-11.0)
[2023-06-15 08:57] LABS: Alanine Aminotransferase 23 U/L (14-59); Albumin Globulin Ratio 1.1; Albumin Level 4.1 g/dL (3.4-5.0); Alkaline Phosphatase 93 U/L (46-116); Anion Gap 16.9; Aspartate Amino Transferase 13 U/L (15-37); BUN Creatinine Ratio 26.4; Bilirubin Total 0.5 mg/dL (0.2-1.0); Calcium 10.3 mg/dL (8.5-10.1); Chloride 102 mmol/L (98-107); Estimated GFR (African America >60 (>=60); Estimated GFR (Non-African Ame >60 (>=60); Globulin 3.6 g/dL; Glucose 116 mg/dL (74-106); Potassium 3.9 mmol/L (3.5-5.1); Sodium 140 mmol/L (136-145); Total Protein 7.7 g/dL (6.4-8.2)
[2023-06-15 09:00] LABS: Lactate/Lactic Acid 1.2 mmol/L (0.4-2.0); Troponin I High Sensitivity 4.3 pg/mL (4.0-51.3)
[2023-06-15] MEDS: KETOROLAC TROMETHAMINE 30 MG/ML VIAL 15 MG IVP (09:13)
[2023-06-15] MEDS: PROCHLORPERAZINE 10 MG/2 ML VIAL IV (09:14)
[2023-06-15 10:52] LABS: Bilirubin Urine NEGATIVE (NEGATIVE); Blood Urine SMALL (NEGATIVE); Clarity Urine CLEAR (CLEAR); Color Urine LT. YELLOW (YELLOW); Glucose Urine UA NEGATIVE (NEGATIVE); Ketones Urine NEGATIVE (NEGATIVE); Leukocyte Esterase Urine SMALL (NEGATIVE); Nitrite Urine POSITIVE (NEGATIVE); Protein Urine NEGATIVE (NEG/TRACE); Urobilinogen Urine 0.2 EU/dL (0.2-1.0); pH Urine 7.5 (5.0-9.0)
[2023-06-15 10:53] LABS: Bacteria Urine LARGE #/HPF (NONE SEEN); Mucus Urine NONE SEEN (NONE SEEN); Squamous Epithelial Cell Urine FEW #/LPF (NONE/RARE)
[2023-06-15 10:54] LABS: Amorphous Sediment Urine FEW; Crystals Seen? Seen #/HPF (None Seen)
[2023-06-15] MEDS: CEFTRIAXONE 1,000 MG in 0.9 % SODIUM CHLORIDE 50 ML 100 MG IV (11:59)
--- OUTSIDE RECORDS SUMMARY | 2023-06-15 14:31 | XMS_ITS | CCD ---
Author Name Unknown Address [facility] [address] [place] [id number] Organization [facility] Care Team Providers Care Front Office Java Developer Name Role Phone DR ADARSH MANRIQUE Admitting [...] Facility (1 source) Nitrofurantoin Drug Allergy [facility] Repository (2 sources) Nitrofurantoin; Translations: [nitrofurantoin] Drug Allergy 09-14-19 19 Gastrointestinal U[facility]et [facility] Medications Current Medications Medication Drug Class(es) Dates [...] bedtime 15 September 29, 2018 12:00am sennosides, nursing home 8.6 mg oral tablet (1 source) Start: [...] : DR ADARSH MANRIQUE M.D. Admission #: [id number] Family : Order #: [id number] CLICK HERE TO VIEW EXAM RADIOLOGY REPORT [...] mouth cancer at age 71. LOCATION: [facility] BREAST COMPOSITION: Heterogeneously dense,which may obscure [...] Ashwin Dumont M.D. on 08/24/2022 at 12:10 [place] [facility] RAD - MISCon 03-11-2021 RAD - MISC [id number] 0CD:127 Normal [facility] Reminderson 03-05-2021 Reminders - From: Danyell Alvarado To: EU - Clinical; Sent: 03/03/2021 14:31:05 EDT Show up: 03/04/2021 14:30:00 EDT Subject: KUB Due Date/Time: 03/05/2021 14:30:00 EDT Reminder/Recall SHOW PRW KUB done 03/04/21 at [facility] pt may need repeat ESWL on 03/06/21 Message sent to PRW to review KUB Normal [facility] RAD - MISCon 03-04-2021 RAD - MISC [id number]#1.0 0CD:127 Normal [facility] RAD - MISC [id number]#1.0 0CD:127 Normal [facility] Operative Reporton Operative Report [id number]#1.0 0CD:127 Normal [facility] Lab Reportson 02-25-2021 Lab Reports [id number] 0CD:127 [facility] Consultation Noteon 02-07-20 Consultation Note [id number]#1.0 0CD:127 Normal [facility] Lab Reportson 01-22-2021 Lab Reports [id number]#1.0 0CD:127 Normal [facility] ECG 12-Leadon 01-17-2021 ECG 12-Lead [id number]#1.00 CD:127 Normal [facility] Lab Reportson 01-17-2021 Lab Reports [id number]#1.0 0CD:127 Normal [facility] RAD - Ultrasound Reporton RAD - Ultrasound Report [id number]#1.0 0CD:127 Normal [facility] Reminderson 01-16-2021 Reminders - From: Danyell Alvarado To: EU - Clinical; Sent: 01/10/2021 10:04:40 EDT Show up: 01/14/2021 10:04:00 EDT Subject: renal US Due Date/Time: 01/17/2021 10:04:00 EDT Reminder/Recall Order was faxed to [facility] to sched pt for renal US (I had left 2 messages but could not get anyone on the phone to schedule) They will call pt to schedule. Show PRW results, pt scheduled for ESWL renal us scanned in the chart today 01/14/21 US scanned to chart is from 2019. L/m on [facility] central sched to see if they schedule this appt with pt.LG Normal [facility] Ambulatory Clinical Summaryo n 01-06-2021 Ambulatory Clinical Summary {[id number] Normal [facility] Patient Educationon 01-07-20 Patient Education Urology Kidney [...] these instructions at home: Medicines ? Take [id number]-[id number] and prescription medicines only as told by [...] Reviewed: 10/03/2019 Elsevier Patient Education ? 2019 [employer] Airam Deras [facility] Urology Office/Clinic Noteon 01-06-2021 Urology Office/Clinic Note [...] Sukumar Hightower, URL [address] [place] [address]- [phone] Additional Instructions: Patient Education Kidney Stones, [id number] I, Pricilla Bernal , personally scribed for [...] Negative (01/06/21 (more content not included)... Normal [facility] Comment on above: Result Comment: Elec tronically Signed By: Sukumar SANDY MD\.br\Date and Time Signed: 01/06/21 11:41 EDT\.br\Electronically Co-Signed By: Pricilla Bernal MA\.br\Date and Time Co-Signed: 01/06/21 11:40 EDT RAD - MISCon 07-30-2020 RAD - MISC [id number]#1.0 0CD:127 Normal [facility] Encounters Encounter Date Encounter Type Care Provider Facility Start: 05-26-2023 End: 05-26-2023 ambulatory ADARSH MANRIQUE Not Available Start: 08-24-2022 End: 08-25-[address] ADARSH MANRIQUE Facility: Start: 04-30-2021 End: 04-30-2021 [facility] Payers Date Payer Category Payer Self-pay [id number] 1958 Medicare [id number] 1958 Private Health Insurance [id number] 1945 Unknown [id number] 1945 Unknown [id number] Unknown [id number] Conversion Insurance [id number] Unknown [id number] Social History Date Type Detail Facility Tobacco smoking stat [facility] Unknown if ever smoked [facility] Work Phone: Start: 1945 Sex Assigned At Female F [facility] Medical Equipment Procedure Code Equipment Code Equipment Origin al Text Equipment Identifier Dates Thoracotomy PROGEL PLEURAL A IR LEAK FDA Start: 09-20-2018 Evaluation note Note Date & Type Note Facility Evaluation note No assessment information availa ble [facility] Work Phone: Summary Purpose Family History [...] section and content) DATE CREATED AUTHOR 03/12/2021 [facility] DATE CREATED AUTHOR AUTHOR'S ORGANIZ ATION 09/01/2022 [facility] DATE CREATED AUTHOR AUTHOR'S ORGANIZ ATION 01/30/2023 [facility] DATE CREATED AUTHOR AUTHOR'S ORGANIZ ATION 05/27/2023 [facility] Specialists EPIC Goals (unrecognized section [...] BE BASED ON THE PRIMARY CLINICAL RECORDS. [employer] provides no warranty or guarantee of the accuracy or completeness of information in this document.
--- NOTE | 2023-06-15 15:43 | P.CN_ITS ---
Consult Note: HPI Data of Consult Consult date: 06/15/23 Requesting Physician: Keerthi Trujillo MD Primary Care Provider: LAUREN CONNER Consult Narrative Reason for consult: left ureteral stone with hydro, UTI Narrative: 78-year-old female with a history of recurrent kidney stones presented to the Emergency Room today with chief complaint of left lower quadrant pain this started last evening with nausea and vomiting. Last week had similar symptoms plus diarrhea, which resolved for a few days. Baseline urinary incontinence, per report had some dysuria. Denies fever, chills. In ER, afebrile, hypertensive. CT AP with IV contrast notes moderate left hydronephrosis to a 6x4x4 mm obstructing proximal ureteral stone, smaller stone just proximal to this. Additional non-obstructing stones up to 4mm on left. Delayed nephrogram on left. Labs overall wnl, mild leukocytosis 11, UA + nitrites and leuks suspicious for UTI. She was given IV ceftriaxone and urology consulted for further recommendations. Pt appears uncomfortable, nauseated and is not her baseline behavior, per daugther Hx recurrent diverticulitis, UTIs and kidney stones. Has had stones treated in the past. Daughter states pt gets UTIs and stones frequently. Is not established with a urologist that she knows of. Per chart review, pt is somewhat forgetful to her medical history secondary previous accident with brain injury. Patient is independent, lives at home by herself. Denies hx of [place] or DM2. Not on anticoagulation. cc:: CC: Keerthi Trujillo MD Review of Systems ROS Status of ROS 10 or more systems reviewed and unremark able except as noted in history and below Constitutional Reports: fatigue and malaise; Denies: fever or chills Eyes Denies: change in vision or blurry vision Ears, nose, mouth, and throat Denies: throat pain or difficulty swallowing Cardiovascular Denies: chest pain or palpitations Respiratory Denies: shortness of breath or cough Gastrointestinal Reports: abdominal pain, nausea and vomiting Genitourinary Reports: painful urination and urinary incontinence [facility] Medical History (Updated 06/15/23 @ 15:54 by Keerthi Trujillo MD) Hyperlipemia ?E78.5 - Hyperlipidemia, unspecified (ICD-10) Surgical History (Updated 06/15/23 @ 15:50 by Ellyn Bhat) S/P ureteral stent placement ?Z96.0 - Presence of urogenital implants (ICD-10) Status post cystoscopy ?Z98.890 - Other specified postprocedural states (ICD-10) 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 - Acquired absence of lung [part of] (ICD-10) Family History (Updated 06/15/23 @ 15:50 by Ellyn Bhat) Other Calculus of kidney Meds Home Medications and Allergies Home Medications Medication Instructions Recorded Confirmed Type atorvastatin 40 mg tablet 40 mg PO DAILY 06/15/23 06/15/23 History omeprazole 40 mg capsule,delayed 40 mg PO DAILY 06/15/23 06/15/23 History release topiramate 25 mg tablet 25 mg PO Q12H 06/15/23 06/15/23 History Allergies Allergy/AdvReac Type Severity Reaction Status Date / Time No Known Drug Allergies Allergy Verified 06/15/23 08:08 Exam Narrative Exam Narrative: Moderate distress, appears fatigued and unwell Nonlabored respirations, symmetric chest rise, on room air Normal rate and rhythm, no peripheral edema Left lower quadrant with moderate tenderness to palpation, non distended Left CVA tenderness to palpation, no suprapubic or right CVA tenderness palpation Moves all extremities, no deformities Alert and oriented x 4, no acute focal deficits Skin dry, intact Appropriate, cooperative Constitutional Vital Signs, click to edit/add: Last Vital Signs Temp 99.9 F 06/15/23 15:29 Pulse 93 H 06/15/23 15:29 Resp 36 H 06/15/23 15:29 BP 120/52 06/15/23 15:29 Pulse Ox 96 06/15/23 15:29 O2 Del Method Nasal Cannula 06/15/23 15:29 O2 Flow Rate 2 06/15/23 15:29 Results Labs Labs: Short CBC 06/15/23 Range/Units 08:30 WBC 11.8 H (4.0-11.0) 10^3/uL Hgb 14.3 (12.0-16.0) g/dL Hct 42.4 (36.0-48.0) % Plt Count 493 H (150-450) 10^3/uL BMP 06/15/23 08:30 Sodium 140 Potassium 3.9 Chloride 102 Carbon Dioxide 25.0 BUN 19.0 H Creatinine 0.72 Glucose 116 H Calcium 10.3 H Liver Function 06/15/23 Range/Units 08:30 Total Bilirubin 0.5 (0.2-1.0) mg/dL AST 13 L (15-37) U/L ALT 23 (14-59) U/L Alkaline Phosphatase 93 (46-116) U/L Albumin 4.1 (3.4-5.0) g/dL Urine 06/15/23 Range/Units 08:30 Urine Color Lt. yellow (YELLOW) Urine Clarity Clear (CLEAR) Urine pH 7.5 (5.0-9.0) Ur Specific [place] 1.010 (1.005-1.025) Urine Protein Negative (NEG/TRACE) mg/dL Urine Glucose (UA) Negative (NEGATIVE) mg/dL Additional Findings Additional findings: Procedure: CT abdomen pelvis w con EXAM: CT abdomen pelvis w con HISTORY: pain left side abdominal pain, nausea for one day COMPARISON: CT abdomen and CT pelvis studies dated 05/12/2019 TECHNIQUE: CT abdomen and CT pelvis studies were performed with the use of intravenous contrast. Multiple axial images were obtained. Reformatted coronal and sagittal images were obtained and reviewed. FINDINGS: Abdomen: Likely mild to moderate atelectatic and/or fibrotic changes in the right lower lung field with minimal changes in the left lower lung field. Infiltrative changes would be less likely. Views of the liver demonstrate a 0.8 cm area of decreased attenuation in the inferior right lobe compatible with cyst slightly increased in size since prior exam. Likely small 0.6 cm cyst in the superior left kidney similar to the prior study. Gallbladder appears grossly unremarkable. Adrenal glands appear grossly unremarkable. Pancreas appears grossly unremarkable. Stomach appears grossly unremarkable. Bowel loops appear grossly unremarkable. Atherosclerotic calcifications within portions of the abdominal aorta. No evidence of aneurysm. No evidence of adenopathy in the retroperitoneum. Likely few scattered right renal cysts measuring up to 1 cm with likely few parapelvic right renal cysts measuring up to 1.2 cm. Likely a few small nonobstructive right renal calculi measuring 2 mm duplicated right renal collecting system is noted. With ureters appearing to join proximally. Multiple scattered nonobstructive left renal calculi measuring up to 4 mm. Moderate parapelvic left renal cysts likely fairly similar to prior study. A few small areas of decreased attenuation in the left kidney measuring 0.6 cm or less to small qualify with certainty though likely representing cysts. There is interval likely mild to moderate left hydronephrosis and proximal left hydroureter to the level of an approximately 6 x 4 x 4 mm calculus in the proximal left ureter with the smaller adjacent calculus superior to it, the larger calculus likely causes early and/or moderate obstructive uropathy on the left. Dense left renal nephrogram on delayed images without contrast in the left renal pelvis or ureter on delayed images. Mild enhancement of the left renal pelvis and proximal left ureteral wall may be related to mild ureteritis. Obstructing calculus noted on series 4 axial image 65. Tiny fat filled umbilical hernia without bowel content. Pelvis: No obvious distal ureteral calculus. No obvious bladder calculus or mass. No significant bladder wall thickening. Uterus appears grossly unremarkable. Nonspecific right adnexal calcification similar to prior study not felt to be acutely significant. Increased pelvic vascularity along the left uterine wall which can be correlated for pelvic congestion syndrome, this appears mildly increased since prior exam. Perirectal fat planes appear grossly intact. Mild diverticulosis of the sigmoid colon without acute diverticulitis. Vascular calcifications within portions of the iliofemoral arteries. No evidence of aneurysm. No evidence of adenopathy. The appendix is visualized and appears unremarkable. Bilateral spondylolysis at L5 without obvious associated spondylolisthesis at L5-S1. Moderate degenerative changes in the lumbar spine with slight convexity to the right. Mild degenerative changes about the hip joints. CT/CT abdomen pelvis w con IMPRESSION: CT abdomen and CT pelvis studies demonstrate early and/or moderate obstructive uropathy on the left secondary to an approximately 6 x 4 x 4 mm calculus in the proximal left ureter with a smaller adjacent calculus superior to it. Bilateral nonobstructive renal calculi more prominent and numerous on the left as noted. Bilateral parapelvic renal cysts more prominent on the left. A few small cortical cysts bilaterally. Colon diverticulosis without definite evidence of acute diverticulitis. Increased vascularity along the left uterine wall, nonspecific, correlate for possible pelvic congestion syndrome. Tiny fat filled umbilical hernia similar to the prior study. Likely small hepatic cyst. Likely small splenic cyst. Electronically authenticated by: BEN OCHOA Date: 06/15/2023 10:05 Assessment and Plan Assessment and Plan (1) Ureteral stone with hydronephrosis: (2) UTI (urinary tract infection): Qualifiers: Urinary tract infection type: acute pyelonephritis Qualified Code(s): N10 - Acute pyelonephritis Plan 78 yo F with history of recurrent stones presented to the ER with left lower quadrant pain, nausea and emesis found to have a 6x4 mm left proximal ureteral stone with moderate hydronephrosis, additional non-obstructing stones and a UTI. After discussion of risks and benefits of management options, patient elected to proceed to the OR urgently for cystoscopy, left retrograde pyelogram, left ureteral stent placement to relieve blockage and infection. She understands the stone will be treated at a later date once her UTI has resolved. Risks were discussed including but not limited to bleeding, pain, infection, damage to surrounding structures, inability to place stent and need for additional procedures. Given patient's worsening clinical picture, age, history of being slow to wake up post anesthesia, and mild hypoxia preop, recommend admission to hospitalist for observation and continued IV antibiotic therapy. -Postop: admit to hospitalist, hydration, IV abx -Follow up urine culture and treat x 10 days -Bladder scan post void residual to ensure not in retention (daughter reports baseline incontinence) -Tamsulosin 0.4 mg qd prn for stent pain, oxybutynin 5 mg TID PRN for bladder spasms, pyridium prn for dysuria -Patient to follow up in 1-2 weeks to discuss definitive stone treatment.
--- NOTE | 2023-06-15 15:59 | PM.URSON ---
Urology Surgery Operative Note Operative Note Procedure Date: 06/15/23 Time Out Performed: yes Pre-op Diagnosis: 1. Left ureteral stone with hydronephrosis 2. Pyelonephritis Post-op Diagnosis: same as pre-op Procedures performed: Cystoscopy, left ureteral stent placement Anesthesia: GETA (LMA, Dr. Adarsh Gutierrez ) Primary Surgeon: Keerthi Trujillo Complications: none Estimated blood loss (mL): 0 Findings: Retained contrast from earlier CT scan in left collecting system to proximal ureter with moderate hydronephrosis, complex collecting system. Unable to clearly visualize radiopaque stone. Mildly cloudy urine in bladder with scattered cystitis cystica. Return of cloudy urine with some white fluffy debris after stent placement. 1+ trabeculated bladder Specimens: none Drains: 6Fr x 22-32 cm JJ left ureteral stent Incision: none Indications for Procedures: 78 yo Female with history of recurrent stones presented to the ER with left lower quadrant pain, nausea and emesis found to have a 6x4 mm left proximal ureteral stone with moderate hydronephrosis, additional non-obstructing stones and a UTI. After discussion of risks and benefits of management options, patient elected to proceed to the OR urgently for cystoscopy, left retrograde pyelogram, left ureteral stent placement to relieve blockage and infection. She understands the stone will be treated at a later date once her UTI has resolved. Risks were discussed including but not limited to bleeding, pain, infection, damage to surrounding structures, inability to place a stent, and need for additional procedures. The patient understands the stent is not permanent and needs to be removed or exchanged within 3 months to prevent encrustation, infection, invasive procedures and/or permanent renal damage. Detailed description of Procedure: After informed consent was obtained, the patient was brought to the operating room and transferred onto the operating table in supine position. Sequential compression devices were placed on bilateral lower extremities. The patient received the appropriate dose of preoperative IV antibiotics and general anesthesia LMA was induced. They were positioned in modified dorsolithotomy with the appropriate pressure points padded, prepped, and draped in the usual sterile fashion for this procedure. An operative safety timeout was performed confirming the patient's identity, laterality and procedure, and all present agreed to proceed. Spot fluoroscopy highlighted the left collecting system from retained contrast as described above. I began by inserting a 22 Lithuanian rigid cystoscope with 30 degree lens into the patient's urethra and bladder without difficulty. There were no bladder tumors, lesions, stones or foreign bodies. Bilateral ureteral orifices were orthotopic and patent. I turned my attention to the left ureteral orifice and a sensor wire was inserted into the ureter, requiring some manipulation to bypass the ureteral stone up to the renal pelvis confirmed on fluoroscopy. A 6Fr x 22-32cm JJ variable length ureteral stent was advanced over the wire, noting adequate curl in the renal pelvis and bladder on fluoroscopic and direct visualization. The bladder was irrigated until clear and inspected one final time to ensure adequate position of stent and no undue trauma to the bladder was done. The bladder was drained and cystoscope was removed. The patient tolerated the procedure well without complication. The patient was awakened from anesthesia and sent to the PACU in stable condition. Plan: -Cont care on the floor per primary. -Cont empiric abx and f/u urine culture to ensure on sensitive abx x 10 days -Tamsulosin 0.4mg qd, oxybutynin 5 mg TID PRN for bladder spasms/stent pain, pyridium 100-200mg TID PRN for dysuria. -Follow up in 1-2 weeks in the office to discuss definitive stone treatment. Findings/plan discussed with pt's approved family member Other Provider present: No Post Operative care instructions: See discharge instructions Attending Doc Confirm Attending Attestation: Yes
--- OUTSIDE RECORDS SUMMARY | 2023-06-15 16:12 | XMS_ITS | CCD ---
Author Name Unknown Address [facility] [address] [place] [id number] Organization [facility] Care Team Providers Care Drencher Name Role Phone DR ADARSH MANRIQUE Admitting [...] Facility (1 source) Nitrofurantoin Drug Allergy [facility] Repository (2 sources) Nitrofurantoin; Translations: [nitrofurantoin] Drug Allergy 09-14-19 19 Gastrointestinal Upset [facility] Medications Current Medications Medication Drug Class(es) [...] bedtime 15 September 29, 2018 12:00am sennosides, assisted 8.6 mg oral tablet (1 source) Start: [...] : DR ADARSH MANRIQUE M.D. Admission #: [id number] Family : Order #: [id number] CLICK HERE TO VIEW EXAM RADIOLOGY REPORT [...] mouth cancer at age 71. LOCATION: [facility] BREAST COMPOSITION: Heterogeneously dense,which may obscure [...] Ashwin Dumont M.D. on 08/24/2022 at 12:10 [place] [facility] RAD - MISCon 03-11-2021 RAD - MISC [id number]#1.0 0CD:127 Normal [facility] Reminderson 03-05-2021 Reminders - From: Danyell Alvarado To: EU - Clinical; Sent: 03/03/2021 14:31:05 EDT Show up: 03/04/2021 14:30:00 EDT Subject: KUB Due Date/Time: 03/05/2021 14:30:00 EDT Reminder/Recall SHOW PRW KUB done 03/04/21 at [facility] pt may need repeat ESWL on 03/06/21 Message sent to PRW to review KUB Normal [facility] RAD - MISCon 03-04-2021 RAD - MISC [id number] 90 [id number] 0CD:127 Normal [facility] RAD - MISC [id number] 00 [id number] 0CD:127 Normal [facility] Operative Reporton Operative Report [id number]#1.0 0CD:127 Normal [facility] Lab Reportson 02-25-2021 Lab Reports [id number]#1.0 0CD:127 [facility] Consultation Noteon 02-07-20 Consultation Note [id number] 0CD:127 Normal [facility] Lab Reportson 01-22-2021 Lab Reports [id number]#1.0 0CD:127 Normal [facility] ECG 12-Leadon 01-17-2021 ECG 12-Lead [id number]#1.00 CD:127 Normal [facility] Lab Reportson 01-17-2021 Lab Reports [id number]#1.0 0CD:127 Normal [facility] RAD - Ultrasound Reporton RAD - Ultrasound Report [id number]#1.0 0CD:127 Normal [facility] Reminderson 01-16-2021 Reminders - From: Danyell Alvarado To: EU - Clinical; Sent: 01/10/2021 10:04:40 EDT Show up: 01/14/2021 10:04:00 EDT Subject: renal US Due Date/Time: 01/17/2021 10:04:00 EDT Reminder/Recall Order was faxed to [facility] to sched pt for renal US (I had left 2 messages but could not get anyone on the phone to schedule) They will call pt to schedule. Show PRW results, pt scheduled for ESWL renal us scanned in the chart today 01/14/21 US scanned to chart is from 2019. L/m on [facility] central sched to see if they schedule this appt with pt.LG Normal [facility] Ambulatory Clinical Summaryo n 01-06-2021 Ambulatory Clinical Summary {[id number] Normal [facility] Patient Educationon 01-07-20 Patient Education Urology Kidney [...] these instructions at home: Medicines ? Take [id number]-bvzdddp and prescription medicines only as told by [...] Reviewed: 10/03/2019 Elsevier Patient Education ? 2019 [employer] Airam Deras [facility] Urology Office/Clinic Noteon 01-06-2021 Urology Office/Clinic [...] Sukumar Hightower, URL [address] [place] [address]- [phone] Additional Instructions: Patient Education Kidney Stones, [id number] I, Pricilla Bernal , personally scribed for [...] Negative (01/06/21 (more content not included)... Normal [facility] Comment on above: Result Comment: Elec tronically Signed By: Sukumar SANDY MD\.br\Date and Time Signed: 01/06/21 11:41 EDT\.br\Electronically Co-Signed By: Pricilla Bernal MA\.br\Date and Time Co-Signed: 01/06/21 11:40 EDT RAD - MISCon 07-30-2020 RAD - MISC [id number] 0CD:127 Normal [facility] Encounters Encounter Date Encounter Type Care Provider Facility Start: 05-26-2023 End: 05-26-2023 ambulatory ADARSH MANRIQUE Not Available Start: 08-24-2022 End: 08-25-[address] ADARSH MANRIQUE Facility: Start: 04-30-2021 End: 04-30-2021 ambulatory [facility] Facility:[facility] Payers Date Payer Category Payer Self-pay [id number] 1958 Medicare [id number] 1958 Private Health Insurance [id number] 1945 Unknown [id number] 1945 Unknown [id number] Unknown [id number] Conversion Insurance [id number] Unknown [id number] Social History Date Type Detail Facility Tobacco smoking stat [facility] Unknown if ever smoked [facility] Work Phone: Start: 1945 Sex Assigned At Female F [facility] Medical Equipment Procedure Code Equipment Code Equipment Origin al Text Equipment Identifier Dates Thoracotomy PROGEL PLEURAL A IR LEAK FDA Start: 09-20-2018 Evaluation note Note Date & Type Note Facility Evaluation note No assessment information availa ble [facility] Work Phone: Summary Purpose Family [...] section and content) DATE CREATED AUTHOR 03/12/2021 [facility] DATE CREATED AUTHOR AUTHOR'S ORGANIZ ATION 09/01/2022 [facility] DATE CREATED AUTHOR AUTHOR'S ORGANIZ ATION 01/30/2023 [facility] DATE CREATED AUTHOR AUTHOR'S ORGANIZ ATION 05/27/2023 [facility] EPIC Goals (unrecognized section and [...] BE BASED ON THE PRIMARY CLINICAL RECORDS. [employer] provides no warranty or guarantee of the accuracy or completeness of information in this document.
[2023-06-15] MEDS: ENOXAPARIN SODIUM 40 MG/0.4 ML SYRINGE SUBQ (18:38)
[2023-06-15] MEDS: LACTATED RINGER'S SOLUTION 1,000 ML 125 ML IV ×2 (18:38→19:54)
[2023-06-16] VITALS (18 sets, daily range): BP systolic 113–116; BP diastolic 56–63; PULSE 65–82; RESP 18–20; TEMP 36.8–37.3; O2SAT 92–93
[2023-06-16] MEDS: LACTATED RINGER'S SOLUTION 1,000 ML 125 ML IV ×2 (02:59→12:16)
[2023-06-16 05:30] LABS: Hematocrit 33.8 % (36.0-48.0); Hemoglobin 11.1 g/dL (12.0-16.0); Mean Corpuscular HGB Conc 32.8 g/dL (29.9-35.2); Mean Corpuscular Hemoglobin 29.8 pg (26.7-34.0); Mean Corpuscular Volume 90.6 fL (81.0-99.0); Mean Platelet Volume 10.5 fL (9.5-13.5); Platelet Count 352 10^3/uL (150-450); Red Blood Count 3.73 10^6/uL (4.20-5.40); Red Cell Distribution Width 14.2 % (11.0-15.0); White Blood Count 26.9 10^3/uL (4.0-11.0)
[2023-06-16 06:02] LABS: Atypical Lymphocytes Abs Man 0.53; Band Neutrophils Absolute 4.3 10^3/uL (0.0-0.3); Lymphocytes Absolute Manual 0.26 10^3/uL (1.20-3.80); Segmented Neut Absolute Manual 21.78 10^3/uL (1.4-6.5)
[2023-06-16 06:07] LABS: Alanine Aminotransferase 19 U/L (14-59); Albumin Globulin Ratio 0.9; Albumin Level 2.9 g/dL (3.4-5.0); Alkaline Phosphatase 72 U/L (46-116); Anion Gap 12.3; Aspartate Amino Transferase 16 U/L (15-37); BUN Creatinine Ratio 23.3; Bilirubin Total 0.5 mg/dL (0.2-1.0); Calcium 9.3 mg/dL (8.5-10.1); Carbon Dioxide 23.4 mmol/L (21.0-32.0); Chloride 105 mmol/L (98-107); Estimated GFR (African America >60 (>=60); Estimated GFR (Non-African Ame >60 (>=60); Globulin 3.1 g/dL; Glucose 107 mg/dL (74-106); Potassium 3.7 mmol/L (3.5-5.1); Sodium 137 mmol/L (136-145)
[2023-06-16] MEDS: ATORVASTATIN CALCIUM 40 MG TABLET PO (08:30)
[2023-06-16] MEDS: CEFTRIAXONE 1,000 MG in 0.9 % SODIUM CHLORIDE 50 ML 100 MG IV (08:30)
[2023-06-16] MEDS: ASPIRIN 81 MG TABLET.DR PO (08:30)
[2023-06-16] MEDS: TOPIRAMATE 25 MG TABLET PO (08:30)
[2023-06-16] MEDS: MULTIVITAMIN TABLET 1 TAB PO (08:30)
[2023-06-16] MEDS: OMEPRAZOLE 40 MG CAPSULE.DR PO (08:30)
[2023-06-16] MEDS: CHOLECALCIFEROL (VITAMIN D3) 25 MCG/1,000 UNITS TABLET PO (08:30)
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
[2023-06-16] MEDS: TAMSULOSIN HCL 0.4 MG CAPSULE PO (09:20)
--- NOTE | 2023-06-16 10:09 | CM.NOTE ---
Rounds made with Dr. Salmeron. Dr. Salmeron explained lab findings and review medications with Jeannette. Would like Jeannette to have an additional day of IV antibiotics due to elevated White cound. Jeannette voices understanding.
--- NOTE | 2023-06-16 10:19 | SWNOTE1 ---
SW met with pt to review Important Message from Medicare form with pt. Pt voiced understanding and had no questions. Pt signed form, original given to patient and copy placed on chart. Pt has no needs at discharge and is independent.
--- NOTE | 2023-06-16 14:17 | XR_ITS ---
The [address] [address] Patient Name: MAVIS PORTER MRN: [id number] date: 1945 Sex: F Assigned Patient Location: [place] Current Patient Location: [place] Accession/Order Number: [id number] Exam Date: 06/16/2023 14:28 Report Date: 06/16/2023 14:43 At the request of: LUDA SILVER Procedure: XR chest 1V EXAM: XR chest 1V HISTORY: SOB COMPARISON: None. TECHNIQUE: AP view of the chest. FINDINGS: The cardiomediastinal silhouette is normal. Interstitial opacity. Bilateral pleural effusions. The osseous structures are intact. XR/XR chest 1V IMPRESSION: Congestion. Small bilateral pleural effusions. Electronically authenticated by: LALA MCDONALD Date: 06/16/2023 14:43
[2023-06-16] MEDS: ACETAMINOPHEN 325 MG TABLET 650 MG PO (17:42)
[2023-06-16] MEDS: ENOXAPARIN SODIUM 40 MG/0.4 ML SYRINGE SUBQ (17:42)
[2023-06-17] VITALS (7 sets, daily range): BP systolic 159; BP diastolic 90; PULSE 66–85; RESP 18–20; TEMP 36.9; O2SAT 93–94
[2023-06-17] MEDS: LACTATED RINGER'S SOLUTION 1,000 ML 75 ML IV (00:26)
[2023-06-17 05:12] LABS: Basophils Absolute Auto 0.1 10^3/uL (0.0-0.1); Basophils Percent Auto 0.5 % (0.2-2.0); Eosinophils Absolute Auto 0.2 10^3/uL (0.0-0.7); Eosinophils Percent Auto 1.3 % (0.9-7.0); Hematocrit 33.1 % (36.0-48.0); Hemoglobin 11.1 g/dL (12.0-16.0); Immature Granulocytes Pct Auto 0.8 % (0.0-0.5); Lymphocytes Absolute Auto 0.8 10^3/uL (1.2-3.8); Lymphocytes Percent Auto 6.1 % (20.5-60.0); Mean Corpuscular HGB Conc 33.5 g/dL (29.9-35.2); Mean Corpuscular Volume 89.5 fL (81.0-99.0); Mean Platelet Volume 10.4 fL (9.5-13.5); Monocytes Absolute Auto 0.6 10^3/uL (0.3-0.8); Monocytes Percent Auto 4.4 % (1.7-12.0); Neutrophils Absolute Auto 11.6 10^3/uL (1.4-6.5); Neutrophils Percent Auto 86.9 % (43.0-75.0); Platelet Count 303 10^3/uL (150-450); Red Cell Distribution Width 13.9 % (11.0-15.0); White Blood Count 13.3 10^3/uL (4.0-11.0)
[2023-06-17] MEDS: ACETAMINOPHEN 325 MG TABLET 650 MG PO (05:18)
[2023-06-17 05:50] LABS: Alanine Aminotransferase 23 U/L (14-59); Albumin Globulin Ratio 0.9; Albumin Level 2.9 g/dL (3.4-5.0); Alkaline Phosphatase 89 U/L (46-116); Anion Gap 14.6; Aspartate Amino Transferase 17 U/L (15-37); BUN Creatinine Ratio 17.9; Bilirubin Total 0.4 mg/dL (0.2-1.0); Calcium 9.3 mg/dL (8.5-10.1); Carbon Dioxide 21.8 mmol/L (21.0-32.0); Chloride 102 mmol/L (98-107); Estimated GFR (African America >60 (>=60); Estimated GFR (Non-African Ame >60 (>=60); Globulin 3.4 g/dL; Glucose 94 mg/dL (74-106); Potassium 3.4 mmol/L (3.5-5.1); Sodium 135 mmol/L (136-145); Total Protein 6.3 g/dL (6.4-8.2)
[2023-06-17] MEDS: ASPIRIN 81 MG TABLET.DR PO (10:02)
[2023-06-17] MEDS: ATORVASTATIN CALCIUM 40 MG TABLET PO (10:03)
[2023-06-17] MEDS: CHOLECALCIFEROL (VITAMIN D3) 25 MCG/1,000 UNITS TABLET PO (10:05)
[2023-06-17] MEDS: MULTIVITAMIN TABLET 1 TAB PO (10:06)
[2023-06-17] MEDS: OMEPRAZOLE 40 MG CAPSULE.DR PO (10:06)
--- NOTE | 2023-06-17 10:39 | P.DS_ITS ---
<Statement entered by Shaikh Faviola MD - 06/17/23 17:08> This documentation has been reviewed and approved. Seen and examined. DOing much better today. No active complaints to offer. Exam: Comfortable, NAD No CVA tenderness, no distention, no abdominal tenderness Normal RR, CTA b/l Assessmemt and Plan UTI sec to obstructing ureteral stone hydroureteronephrosis leukocytosis. Stable for discharge. Outpatient f/u with Urology. C/w PO abx. F/u PCP in one week and f/u Urology in 2 weeks. DS: Providers Provider Date of admission: 06/16/23 10:56 Primary care physician: LAUREN CONNER Consults: 06/15/23 16:31 Occupational Therapy Eval and Treat Routine Reason for consultation: Ambulatory dysfunction/weakness Physical Therapy Eval and Treat Routine Reason for consultation: Ambulatory dysfunction/weakness Discharging clinician: Halle Antonio DS: Diagnosis Discharge Diagnosis (1) Ureteral stone with hydronephrosis: (2) UTI (urinary tract infection): Qualifiers: Urinary tract infection type: acute pyelonephritis Qualified Code(s): N10 - Acute pyelonephritis (3) Leukocytosis: (4) Hyperlipemia: (5) Chronic GERD: (6) Blind right eye: (7) Migraine: DS: Summary Hospital Course Hospital Course: The patient was admitted initially to observation for obstructive hydronephrosis from renal calculi. She was taken emergently to the OR by the urology service on 06/15/2023 for a cystoscopy and left ureteral stent placement. She was admitted to the hospitalist service postprocedure. Due to the presence of hydronephrosis and worsening leukocytosis, her admission was changed to an inpatient and she was monitored closely for symptoms of sepsis/bacteremia after her renal procedure. She was treated with IV Rocephin for a concurrent UTI. She remained afebrile and her leukocytosis began trending down prior to discharge. Her kidneys were flushed with IV fluids but we turned the rate of IV fluids down after she began to show symptoms of possible fluid overload. We did not have to give diuretics for this as reducing the rate of IV fluids was adequate. She was able to maintain O2 saturations without assistance. On the day of discharge the patient's urine culture revealed E. coli but sensitivities are still pending. She is being discharged home in stable condition without any complaints of pain or shortness of breath. She was prescribed cefdinir for a 10-day course per urology recommendation. In addition she was prescribed oxybutynin and Pyridium as needed for bladder spasms. She was also initiated on tamsulosin per urology recommendations. She should follow-up with the urology group in 1 to 2 weeks and with her PCP within 1 week. Post op instructions per the urology service were provided to the pt at discharge. Time Spent with Patient Time attestation: Total time spent providing and/or coordinating discharge services: Time spent: greater than 30 minutes Specific discharge activities: Physical exam, discussion of discharge plan, questions answered. Exam Constitutional Vital Signs, click to edit/add: Last Vital Signs Temp 98.5 F 06/17/23 05:23 Pulse 70 06/17/23 10:00 Resp 18 06/17/23 08:00 BP 159/90 H 06/17/23 05:23 Pulse Ox 94 L 06/17/23 05:23 O2 Del Method Room Air 06/17/23 05:23 O2 Flow Rate 2 06/15/23 19:53 Common normals: no apparent distress, oriented x3 and alert General appearance: cooperative Orientation/consciousness: Yes awake HENMT Common normals: normocephalic and head/scalp atraumatic Eye Common normals: conjunctivae normal and no scleral icterus Neck & C-Spine Common normals: no JVD Respiratory Common normals: normal respiratory effort, no use of accessory muscles and clear to auscultation bilaterally Effort & inspection: able to speak in complete sentences and symmetric chest movement Cardio Common normals: no JVD, regular rate, regular rhythm, S1 normal heart sound, S2 normal heart sound and peripheral pulses 2+ throughout Heart sounds: murmur (HSM 2/6) GI Common normals: Normal to inspection, nondistended, normoactive bowel sounds present, soft to palpation and non-tender Palpation: soft Bladder/kidney exam: bladder normal to palpation Extremity Common normals: normal to inspection, full ROM and normal capillary refill General: edema (Trace bilat insteps); no clubbing and no cyanosis Neuro Common normals: moves all extremities, no focal motor deficits and no sensory deficits noted Speech: speech normal Psych Common normals: mental status grossly normal and activity/motor behavior normal DS: Data Data Completed and Pending Labs on day of discharge: Labs from last 24 hours 06/17/23 06/17/23 06/16/23 04:33 04:30 14:32 WBC 13.3 H RBC 3.70 L Hgb 11.1 L Hct 33.1 L MCV 89.5 MCH 30.0 MCHC 33.5 RDW 13.9 Plt Count 303 MPV 10.4 Neut % (Auto) 86.9 H Lymph % (Auto) 6.1 L Leslie % (Auto) 4.4 Eos % (Auto) 1.3 Baso % (Auto) 0.5 Neut # (Auto) 11.6 H Lymph # (Auto) 0.8 L Leslie # (Auto) 0.6 Eos # (Auto) 0.2 Baso # (Auto) 0.1 Abs Immat Gran (auto) 0.10 H Imm/Tot Granulo (auto) 0.8 H Sodium 135 L Potassium 3.4 L Chloride 102 Carbon Dioxide 21.8 Anion Gap 14.6 BUN 14.0 Creatinine 0.78 Est GFR ( Amer) >60 Est GFR (Non-Af Amer) >60 BUN/Creatinine Ratio 17.9 Glucose 94 Calcium 9.3 Total Bilirubin 0.4 AST 17 ALT 23 Alkaline Phosphatase 89 NT-Pro-B Natriuret Pep 2495.0 H* Total Protein 6.3 L Albumin 2.9 L Globulin 3.4 Albumin/Globulin Ratio 0.9 Imaging Chest x-ray: Radiologist's impression: 06/16/23 IMPRESSION: Congestion. Small bilateral pleural effusions. CT scan - abdomen: Radiologist's impression: 06/15/23 IMPRESSION: CT abdomen and CT pelvis studies demonstrate early and/or moderate obstructive uropathy on the left secondary to an approximately 6 x 4 x 4 mm calculus in the proximal left ureter with a smaller adjacent calculus superior to it. Bilateral nonobstructive renal calculi more prominent and numerous on the left as noted. Bilateral parapelvic renal cysts more prominent on the left. A few small cortical cysts bilaterally. Colon diverticulosis without definite evidence of acute diverticulitis. Increased vascularity along the left uterine wall, nonspecific, correlate for possible pelvic congestion syndrome. Tiny fat filled umbilical hernia similar to the prior study. Likely small hepatic cyst. Likely small splenic cyst. Discharge Plan Discharge Disposition: Home, Self-Care Condition: Good Discharge Medications: New tamsulosin 0.4 mg capsule 0.4 mg PO DAILY Qty: 30 0RF oxybutynin chloride 5 mg tablet 5 mg PO TID PRN (Reason: bladder spasms) Qty: 30 0RF phenazopyridine [Pyridium] 100 mg tablet See Rx Instructions .ROUTE .COMPLEX PRN (Reason: pain with urination) Qty: 60 0RF Rx Instructions: Take 1 to 2 tabs TID PRN for pain with urination cefdinir 300 mg capsule 300 mg PO BID 10 Days Qty: 20 0RF Continued atorvastatin 40 mg tablet 40 mg PO DAILY omeprazole 40 mg capsule,delayed release(DR/EC) 40 mg PO DAILY aspirin [Adult Aspirin Regimen] 81 mg tablet,delayed release (DR/EC) 81 mg PO DAILY Vyzulta 0.024 % drops 1 drp OPHTHALMIC (EYE) .QHS Rx Instructions: LEFT EYE multivitamin [Multiple Vitamins] Tablet 1 tab PO DAILY cholecalciferol (vitamin D3) [Vitamin D3] 25 mcg (1,000 unit) capsule 25 mcg PO DAILY Activity: increase activity as tolerated Diet: advance to your usual diet Patient Instructions: Oxybutynin (By mouth), Phenazopyridine (By mouth) (Pyridium, Pyridiate, Azo Standard), Tamsulosin (By mouth) (Flomax), Cefdinir (By mouth), Kidney Stones (ED), Ureteral Stones (DC), Ureteral Stent Placement (DC) Activity Restrictions/Additional Instructions: Tylenol 650-1000 mg every 6 hours alternated with ibuprofen 400-600 mg every 6 hours in between as needed for post-op pain. Tamsulosin daily for stent pain, difficulty voiding. If you get dizzy or lightheaded, take at night or stop. Do not take with other blood pressure medications Oxybutynin 5 mg every 8 hours as needed for bladder spasms and stent pain. Drink plenty of fluids, take stool softeners as needed for constipation, dry mouth and dry eyes. AZO for urinary discomfort/burning can be purchased at local pharmacy. This will make your urine orange. You must follow up to ensure your stent gets removed or exchanged within 3 months. If not, you risk infection, encrustation, renal damage and need for more invasive procedures including nephrectomy. Return to ER for fevers > 101.5F, uncontrolled nausea/emesis, uncontrolled pain, or inability to void. Forms: Portal Instructions Referrals: LAUREN CONNER [Primary Care Provider] - 1 week Keerthi Trujillo MD [Physician] - (Follow up in 1-2 weeks to schedule definitive stone treatment ) Follow Up Appointments: @ 9:45am with Dr. Trujillo [phone] @ 1pm with Adriana Lizama NP [phone] Discharge Date/Time: 06/17/23 11:03
--- NOTE | 2023-06-17 10:58 | CM.NOTE ---
Rounds made with Dr. Salmeron, pt will discharge to home today and f/u urologist as outpatient. No discharge needs identified.
--- NOTE | 2023-06-18 10:24 | CM.DCFOLLOWU ---
Person spoke with: patient How are you feeling? nauseous How is your pain? stomach pain, nausea Did you understand your discharge instructions? yes Do you have any questions about your discharge instructions? no Were you given any prescriptions at discharge? yes Were you able to get your prescriptions filled? yes Do you understand how to take your medications as ordered? yes Do you have any questions about your follow up appointment and do you plan to keep your follow up appointment? no questions, reviewed follow ups Is there anything else that you would like to discuss? no Questions/Comments/Concerns/Other: Patient took all her meds, is feeling nauseous and was feeling nauseous last night. She has not vomited, trying to keep fluids down. Advised to come to the ED if nausea continues or vomiting occurs.
== END 2023-06-17 11:03 | disposition home or self-care (01) | DRG 660 ==
LOC: ER 13:10 → SURGOUT 14:28 → MS 16:08 → SURGOUT 16:10 → MS 16:10
PROVIDERS: Urology; Admitting Provider Internal Medicine; Emergency Provider Emergency Medicine; PCP Internal Medicine; Visit Provider Nurse Practitioner
PROC: 0T778DZ Dilation of Left Ureter with Intraluminal Device, Via Natural or Artificial Opening Endoscopic (ICD-10-PCS; principal; 2023-06-15 15:00)
DX: N13.6 Pyonephrosis (principal); Z16.11 Resistance to penicillins; Z16.23 Resistance to quinolones and fluoroquinolones; B96.20 Unspecified Escherichia coli [E. coli] as the cause of diseases classified elsewhere; D72.829 Elevated white blood cell count, unspecified; E78.5 Hyperlipidemia, unspecified; K21.9 Gastro-esophageal reflux disease without esophagitis; H54.62 Unqualified visual loss, left eye, normal vision right eye; G43.909 Migraine, unspecified, not intractable, without status migrainosus; Z87.820 Personal history of traumatic brain injury; Z87.440 Personal history of urinary (tract) infections; Z79.82 Long term (current) use of aspirin; Z79.899 Other long term (current) drug therapy; Z90.2 Acquired absence of lung [part of]; Z98.890 Other specified postprocedural states
CPT/HCPCS: 36415; 71045; 74177; 76000; 80053; 81001; 83605; 83690; 83880; 84484; 85025; 85027; 87040; 87086; 87150; 87186; 94667; 94668; 94761; 96365; 96366; 96372; 96375; 96376; 97161; 97165; 99285; G0378; J0696; J0780; J1100; J1650; J1885; J2270; J2371; J2405; J2704; Q9967

== ENCOUNTER 2023-06-28 12:08 | Outpatient (OUT) | payer MEDICARE, OTHER, SELFPAY ==
--- OUTSIDE RECORDS SUMMARY | 2023-06-28 12:13 | XMS_ITS | CCD ---
Author Name Unknown Address [address] [place] [address] Organization [facility] Care Team Providers Care Vice President Network Development Name Role Phone DR ADARSH MANRIQUE Admitting Unavailable DALILA, DR AGUILAR Attending Unavailable DR ADARSH MANRIQUE Primary Care Unavailable DR ADARSH MANRIQUE Consulting Unavailable DAHIANA, DR ASHWIN Hightower Consulting Unavailable Sohail Grimes Attending Unavailable Sohail Grimes Admitting Unavailable Adarsh Manrique Primary Care Unavailable ADARSH MANRIQUE Attending Unavailable ADARSH MANRIQUE Primary Care Physician [phone] Allergies Allergy Classification Reported Allergen(s) Allergy Type Date of Onset Reaction(s) Facility (1 source) Nitrofurantoin Drug Allergy [facility] Repository (2 sources) Nitrofurantoin; Translations: [nitrofurantoin] Drug Allergy 09-14-19 19 Gastrointestinal Upset [facility] Medications Current Medications Medication Drug Class(es) Dates Sig (Normalized) Sig (Original) acetaminophen 500 mg oral tablet (1 source) Start: 09-29-2018 take 500 mg by mouth every six hours Acetaminophen Active 500 MG PO Q6H 0 September 29, 2018 12:00am aspirin 81 mg oral tablet (3 sources) Platelet Aggregation Inhibitor, Nonsteroidal Anti-inflammatory Drug Start: 01-01-2020 take 1 mg by mouth once daily aspirin 81 mg oral tablet mg tab(s), Oral, Daily, Refills(s) 0 Start Date: 01/01/20 Status: Ordered Start: 07-26-2018 End: 09-29-2018 take 81 mg by mouth once daily Aspirin Active 81 MG PO Daily 30 September 29, 2018 12:00am atorvastatin (3 sources) HMG-CoA Reductase Inhibitor Start: 01-01-2020 atorvastatin Oral, D aily, Refills(s) 0 Start Date: 01/01/20 Status: Ordered Start: 07-26-2018 End: 09-29-2018 take 40 mg by mouth at bedtime Atorvastatin Active 40 MG PO Bedtime 30 September 29, 2018 12:00am calcium carbonate 1250 mg / cholecalciferol 200 unt oral tablet (1 source) Vitamin D Start: 09-29-2018 take 1 tablet by mouth once daily Calcium Carbonate-Vitamin D3 (Oyster Shell Calcium-Vit D3) 500 mg(1,250mg) -200 unit Tablet Active 1 TAB PO Daily 30 September 29, 2018 12:00am cefdinir 300 mg oral capsule (1 source) Cephalosporin Antibacterial Start: 06-23-2023 cefdinir 300 mg Cap Refills(s) 0 Start Date: 06/23/23 Status: Ordered chlorhexidine gluconate 1.2 mg/ml mouthwash (2 sources) [...] 26, 2018 1:00am September 29, 2018 1:39pm Citracal Plus Bone Density Builder (1 source) Start: 01-01-2020 Citracal Plus Bone Density Builder Oral, Daily, Refill(s) 0 Start Date: 01/01/20 Status: Ordered codeine phosphate 2 mg/ml / guaiFENesin 20 mg/ml oral solution (1 source) Opioid Agonist Start: 11-03-2018 take 1 mL by mouth every four to six hours Codeine-Guaifenes in Active 10 ML PO EVERY 4-6 HOURS 200 November 03, 2018 12:00am docusate sodium 100 mg oral capsule (1 source) Start: 09-29-2018 take 100 mg by mouth twice daily Docusate Sodium Active 100 MG PO Twice daily 60 September 29, 2018 12:00am latanoprost (1 source) Prostaglandin Analog Start: 01-06-2021 latanoprost ophthalmic qPM, Refill(s) 0 Start Date: 01/06/21 Status: Ordered Lidocaine (1 source) Antiarrhythmic, Amide Local Anesthetic Start: 09-29-2018 apply 1 dose topically once daily Lidocaine (Aspercreme (Lidocaine)) 4 % Adhesive Patch,Medicated Active 1 PATCH TOPICAL Daily September 29, 2018 12:00am Multivitamin With Folic Acid (Thera) 400 mcg Tablet (1 source) Start: 09-29-2018 take 1 tablet by mouth once daily Multivitamin With Folic Acid (Thera) 400 mcg Tablet Active 1 TAB PO Daily September 29, 2018 12:00am omeprazole 40 mg delayed release oral capsule (2 sources) Proton Pump Inhibitor Start: 06-23-2023 omeprazole 40 mg Cap-DR Refills(s) 0 Start Date: 06/23/23 Status: Ordered Start: 09-29-2018 take 20 mg by mouth once daily Omeprazole Active 20 MG PO Daily September 29, 2018 12:00am ondansetron 4 mg [...] Active 12.5 MG PO Daily at bedtime September 29, 2018 12:00am sennosides, fdc 8.6 mg oral tablet (1 source) Start: 09-29-2018 take 2 tablets by mouth once daily Sennosides (Senna Lax) 8.6 mg Tablet Active 2 TAB PO DAILY@12 60 September 29, 2018 12:00am tamsulosin hydrochloride 0.4 mg oral capsule (1 source) alpha-Adrenergic Roxy Start: 06-23-2023 tamsulosin 0.4 mg Cap Refills(s) 0 Start Date: 06/23/23 Status: Ordered topiramate 25 mg oral tablet (3 sources) Start: 01-01-2020 topiramate 25 mg, Oral, Refills(s) 0 Start Date: 01/01/20 Status: Ordered Start: 07-26-2018 End: 09-29-2018 take 1 tablet by mouth once daily Topiramate (Topamax) 25 mg Tablet Active 25 MG PO Daily 30 September 29, 2018 12:00am Vitamin D3 (1 source) Start: 01-01-2020 Vitamin D3 Ref ills(s) 0 Start Date: 01/01/20 Status: Ordered Completed/Discontinued Medications Medication Drug Class(es) Dates Sig [...] Discontinued 5000 UNIT SUBCUT Every 12 hours 28 14 September 23, 2018 12:00am September 29, 2018 [...] living] 02-23-2019 Episodic Calculus of urinary tract (6 sources) Kidney stone; Translations: [Calculus of kidney] Onset: 06-23-2023 02-23-2019 Episodic Cancer of bronchus; lung (3 sources) Malignant tumor of lung; Translations: [Malignant neoplasm of unspecified part of left bronchus or lung] 02-23-2019 Chronic Cancer; other and unspecified primary (1 source) Malignant neoplasm of abdomen 01-01-2020 Chronic Disorders of lipid metabolism (2 sources) Hyperlipidemia; Translations: [Hyperlipidemia, unspecified] 02-23-2019 Chronic Diverticulosis and diverticulitis (1 source) Diverticular disease; Translations: [Diverticulosis of intestine, part unspecified, without perforation or abscess without bleeding] 02-23-2019 Chronic Esophageal disorders (1 source) Gastroesophageal reflux disease; Translations: [Gastro-esophageal reflux disease without esophagitis] 02-23-2019 Chronic Essential hypertension (1 source) Hypertensive disorder 01-06-2021 Chronic Comment on above: NO HTN DX Genitourinary symptoms and ill-defined conditions (3 sources) History of urinary tract infection; Translations: [Personal history of urinary (tract) infections] Onset: 06-23-2023 Episodic Headache; including migraine (2 sources) Migraine; Translations: [Migraine, unspecified, not intractable, without [...] of face, initial encounter] 02-23-2019 Episodic Other injuries and conditions due to external causes (1 source) Injury of head 01-01-2020 Episodic Other nervous system disorders (1 source) [...] pulmonary nodule] Onset: 04-30-2021 Urinary tract infections (2 sources) Urinary tract infectious disease; Translations: [Urinary tract infection, site not specified] 02-23-2019 Episodic Results Test Name Value Interpretation Reference Range Facil ity MG MAMM SCREEN 3D MARCOS CADon 08-24-2022 MG MAMM SCREEN 3D MARCOS CAD Patient: MAVIS PORTER Exam Date: 08/24/2022 : 1945 Gender:F Ordering : DR ADARSH MANRIQUE M.D. Admission #: [id number] Family : Order #: [id number] CLICK HERE TO VIEW EXAM RADIOLOGY REPORT [...] mouth cancer at age 71. LOCATION: [facility] BREAST COMPOSITION: Heterogeneously dense,which may obscure [...] Ashwin Dumont M.D. on 08/24/2022 at 12:10 Normal [facility] RAD - MISCon 03-11-2021 RAD - MISC [id number]#1.0 0CD:[address] [facility] Reminderson 03-05-2021 Reminders - From: Danyell Alvarado To: EU - Clinical; Sent: 03/03/2021 14:31:05 EDT Show up: 03/04/2021 14:30:00 EDT Subject: KUB Due Date/Time: 03/05/2021 14:30:00 EDT Reminder/Recall SHOW PRW KUB done 03/04/21 at [facility] pt may need repeat ESWL on 03/06/21 Message sent to PRW to review KUB Normal [facility] RAD - MISCon 03-04-2021 RAD - MISC [id number]#1.0 0CD:[address] [facility] RAD - MISC [id number] 00 [id number]#1.0 0CD:[address] [facility] Operative Reporton Operative Report [id number]#1.0 0CD:[address] [facility] Lab Reportson 02-25-2021 Lab Reports [id number]#1.0 0CD:[address] [facility] Consultation Noteon 02-07-20 Consultation Note [id number]#1.0 0CD:[address] [facility] Lab Reportson 01-22-2021 Lab Reports [id number]#1.0 0CD:[address] [facility] ECG 12-Leadon 01-17-2021 ECG 12-Lead [id number]#1.00 CD:[address] [facility] Lab Reportson 01-17-2021 Lab Reports [id number]#1.0 0CD:[address] [facility] RAD - Ultrasound Reporton RAD - Ultrasound Report [id number]#1.0 0CD:[address] [facility] Reminderson 01-16-2021 Reminders - From: Danyell Alvarado To: EU - Clinical; Sent: 01/10/2021 10:04:40 EDT Show up: 01/14/2021 10:04:00 EDT Subject: renal US Due Date/Time: 01/17/2021 10:04:00 EDT Reminder/Recall Order was faxed to [facility] to sched pt for renal US (I had left 2 messages but could not get anyone on the phone to schedule) They will call pt to schedule. Show PRW results, pt scheduled for ESWL renal us scanned in the chart today 01/14/21 US scanned to chart is from 2019. L/m on [facility] central sched to see if they schedule this appt with pt.LG Normal [facility] Ambulatory Clinical Summaryo n 01-06-2021 Ambulatory Clinical Summary {[id number]}CD:[id number] [facility] Patient Educationon 01-07-20 Patient Education Urology Kidney [...] these instructions at home: Medicines ? Take pzaq-ikp-zfetycs and prescription medicines only as told by [...] Reviewed: 10/03/2019 Elsevier Patient Education ? 2019 [employer] Normal [facility] Urology Office/Clinic Noteon 01-06-2021 Urology Office/Clinic [...] Sukumar Hightower, URL [address] [place] [address]- [phone] Additional Instructions: Patient Education Kidney Stones, Tutv-mv-Kwpn IPricilla , personally scribed for Dr. Sandy on [...] Negative (01/06/21 (more content not included)... Normal [facility] Comment on above: Result Comment: Elec tronically Signed By: Sukumar SANDY MD\.br\Date and Time Signed: 01/06/21 11:41 EDT\.br\Electronically Co-Signed By: Pricilla Bernal MA\.br\Date and Time Co-Signed: 01/06/21 11:40 EDT RAD - MISCon 07-30-2020 RAD - MISC [id number]#1.0 0CD:[address] [facility] Vital Signs Date Time Vital Sign Value Performing Clinician Edgar carmen 06-23-2023 10:26-0500 Blood Pressure Location Keerthi Lue [facility] 06-23-2023 10:26-0500 Diastolic blood pressure 67 mm[Hg] Keerthi Lue [facility] 06-23-2023 10:26-0500 Heart rate 67 /min Keerthi Lue [facility] 06-23-2023 10:26-0500 Respiratory rate 16 /min Keerthi Lue [facility] 06-23-2023 10:26-0500 Systolic blood pressure 118 mm[Hg] Keerthi Lue [facility] Encounters Encounter Date Encounter Type Care Provider Facility Start: 06-23-2023 End: 06-23-2023 Patient encounter procedure Keerthi Trujillo [facility] Start: 05-26-2023 End: 05-26-2023 ambulatory ADARSH MANRIQUE Not Available Start: 08-24-2022 End: 08-25-[address] ADARSH MANRIQUE Facility: Start: 04-30-2021 End: 04-30-2021 ambulatory Sohail Grimes Facility:[facility] Procedures Date Procedure Procedure Detail Performing Clinician Start: 06-15-2023 Cystoscopic insertio n of ureteric stent Keerthi Trujillo Start: 01-31-2021 Extracorporeal shock wave lithotripsy of calculus of kidney Keerthi Lue Biopsy of breast Keerthi Caldwelle Colonoscopy Keerthi Lue Cystoscopy Keerthi Lue History of tonsillectomy Desirae hy Lue Immunizations Immunization Date Immunization Notes Care Provider Lizzeth emmanuel 04-07-2023 influenza virus vacc ine, unspecified formulation Keerthi Lue [facility] 03-19-2022 influenza virus vacc ine, unspecified formulation Keerthi Lue [facility] 12-24-2021 SARS-CoV-2 mRNA (ceonomucuar-cewk-zthdwf e) vaccine Keerthi Lue [facility] Comment on above: Result Comment: 2023: [id number] 05-01-2021 influenza virus vacc ine, unspecified formulation Keerthi Lue [facility] 08-15-2020 SARS-CoV-2 (COVID-19 ) mRNA BNT-162b2 vax Keerthi Lue [facility] 07-29-2020 SARS-CoV-2 (COVID-19 ) mRNA-1273 vaccine Keerthi Lue [facility] 07-25-2020 SARS-CoV-2 (COVID-19 ) mRNA BNT-162b2 vax Keerthi Lue [facility] 07-01-2020 SARS-CoV-2 (COVID-19 ) mRNA-1273 vaccine Keerthi Lue [facility] 03-04-2020 influenza virus vacc ine, unspecified formulation Keerthi Lue [facility] 04-18-2019 influenza virus vacc ine, unspecified formulation Keerthi Lue [facility] 06-15-2018 zoster vaccine recombinant Keerthi Lue [facility] 01-11-2018 influenza virus vacc ine, unspecified formulation Keerthi Lue [facility] 01-11-2018 zoster vaccine recombinant Keerthi Lue [facility] 03-01-2017 pneumococcal polysaccharide vaccine, 23 valent Keerthi Lue [facility] 02-17-2017 influenza virus vacc ine, unspecified formulation Keerthi Lue [facility] 09-02-2015 pneumococcal conjuga te vaccine, 13 valent Keerthi Lue [facility] 12-31-2014 zoster vaccine, live Keerthi L ufelton [facility] 09-06-2014 pneumococcal conjuga te vaccine, 13 valent Keerthi Trujillo [facility] 04-24-2013 influenza virus vacc ine, unspecified formulation Keerthi Trujillo [facility] Payers Date Payer Category Payer Self-pay [id number] 1958 Medicare [id number] 1958 Private Health Insurance [id number] 1945 Unknown [id number] 1945 Unknown [id number] Unknown [id number] Conversion Insurance [id number] Unknown [id number] Social History Date Type Detail Facility Tobacco smoking stat [facility] Unknown if ever smoked [facility] Work Phone: Start: 1945 Sex Assigned At Female F [facility] Start: 06-23-2023 Tobacco smoking status Never s moked tobacco (finding) [facility] Tobacco smoking status Never [facility] Sex Assigned At Female [facility] Medical Equipment Procedure Code Equipment Code Equipment Origin al Text Equipment Identifier Dates Thoracotomy PROGEL PLEURAL A IR LEAK FDA Start: 09-20-2018 Functional Status Date Assessment Result Facility 06-23-2023 Functional Status N/A [facility] Hospital Discharge instructions 06-23-2023 Note Date & Type Note Facility 06-23-2023 Hospital Discharg e instructions Patient Education 06/23/2023 11:12:17 Dietary Guidelines to Help Prevent Kidney Stones Dietary Guidelines to Help Prevent Kidney Stones Kidney stones are deposits of minerals and salts that form inside your kidneys. Your risk of developing kidney stones may be greater depending on your diet, your lifestyle, the medicines you take, and whether you have certain medical conditions. Most people can lower their risks of developing kidney stones by following these dietary guidelines. Your dietitian may give you more specific instructions depending on your overall health and the type of kidney stones you tend to develop. What are tips for following this plan? Reading food labels Choose foods with no salt added or low-salt labels. Limit your salt (sodium) intake to less than 1,500 mg a day. Choose foods with calcium for each meal and snack. Try to eat about 300 mg of calcium at each meal. Foods that contain 200 500 mg of calcium a serving include: ?8 oz (237 mL) of milk, ggvxsru-ngxtoyylxwka-onzsc milk, and calcium-fortifiedfruit juice. Calcium-fortified means that calcium has been added to these drinks. ?8 oz (237 mL) of kefir, yogurt, and soy yogurt. ?4 oz (114 g) of tofu. ?1 oz (28 g) of cheese. ?1 cup (150 g) of dried figs. ?1 cup (91 g) of cooked broccoli. ?One 3 oz (85 g) can of sardines or mackerel. Most people need 1,000 1,500 mg of calcium a day. Talk to your dietitian about how much calcium is recommended for you. Shopping Buy plenty of fresh fruits and vegetables. Most people do not need to avoid fruits and vegetables, even if these foods contain nutrients that may contribute to kidney stones. When shopping for convenience foods, choose: ?Whole pieces of fruit. ?Pre-made salads with dressing on the side. ?Low-fat fruit and yogurt smoothies. Avoid buying frozen meals or prepared deli foods. These can be high in sodium. Look for foods with live cultures, such as yogurt and kefir. Choose high-fiber grains, such as whole-wheat breads, oat bran, and wheat cereals. Cooking Do not add salt to food when cooking. Place a salt shaker on the table and allow each person to add their own salt to taste. Use vegetable protein, such as beans, textured vegetable protein (TVP), or tofu, instead of meat in pasta, casseroles, and soups. Meal planning Eat less salt, if told by your dietitian. To do this: ?Avoid eating processed or pre-made food. ?Avoid eating fast food. Eat less animal protein, including cheese, meat, poultry, or fish, if told by your dietitian. To do this: ?Limit the number of times you have meat, poultry, fish, or cheese each week. Eat a diet free of meat at least 2 days a week. ?Eat only one serving each day of meat, poultry, fish, or seafood. ?When you prepare animal proteins, cut pieces into small portion sizes. For most meat and fish, one serving is about the size of the palm of your hand. Eat at least five servings of fresh fruits and vegetables each day. To do this: ?Keep fruits and vegetables on hand for snacks. ?Eat one piece of fruit or a handful of berries with breakfast. ?Have a salad and fruit at lunch. ?Have two kinds of vegetables at dinner. You may be told to limit foods that are high in a substance called oxalate. These include: ?Spinach (cooked), rhubarb, beets, sweet potatoes, and [place] chard. ?Peanuts. ?Potato chips, danish fries, and baked potatoes with skin on. ?Nuts and nut products. ?Chocolate. If you regularly take a diuretic medicine, make sure to eat at least 1 or 2 servings of fruits or vegetables that are high in potassium each day. These include: ?Avocado. ?Banana. ?[place], prune, carrot, or tomato juice. ?Baked potato. ?Cabbage. ?Beans and split peas. Lifestyle Drink enough fluid to keep your urine pale yellow. This is the most important thing you can do. Spread your fluid intake throughout the day. If you drink alcohol: ?Limit how much you have to: ?0 1 drink a day for women who are not . ?0 2 drinks a day for men. ?Know how much alcohol is in your drink. In the [place] one drink equals one 12 oz bottle of beer (355 mL), one 5 oz glass of wine (148 mL), or one 1 oz glass of hard liquor (44 mL). Lose weight if told by your health care provider. Work with your dietitian to find an eating plan and weight loss strategies that work best for you. General information Talk to your health care provider and dietitian about taking daily supplements. Depending on your health and the cause of your kidney stones, you may be told: ?Do not take high-dose supplements of vitamin C (1,000 mg a day or more). ?To take a calcium supplement. ?To take a daily probiotic supplement. ?To take other supplements such as magnesium, fish oil, or vitamin B6. Take lfnj-fvs-xjrryap and prescription medicines only as told by your health care provider. These include supplements. What foods should I limit? Limit your intake of the following foods, or eat them as told by your dietitian. Vegetables Spinach. Rhubarb. Beets. Canned vegetables. Pickles. Olives. Baked potatoes with skin. Grains Wheat bran. Baked goods. Salted crackers. Cereals high in sugar. Meats and other proteins Nuts. Nut butters. Large portions of meat, poultry, or fish. Salted, precooked, or cured meats, such as sausages, meat loaves, and hot dogs. Dairy Cheeses. Beverages Regular soft drinks. Regular vegetable juice. Seasonings and condiments Seasoning blends with salt. Salad dressings. Soy sauce. Ketchup. Barbecue sauce. Other foods Canned soups. Canned pasta sauce. Casseroles. Pizza. Lasagna. Frozen meals. Potato chips. Japanese fries. The items listed above may not be a complete list of foods and beverages you should limit. Contact a dietitian for more information. What foods should I avoid? Talk to your dietitian about specific foods you should avoid based on the type of kidney stones you have and your overall health. Fruits Grapefruit. The item listed above may not be a complete list of foods and beverages you should avoid. Contact a dietitian for more information. Summary Kidney stones are deposits of minerals and salts that form inside your kidneys. You can lower your risk of kidney stones by making changes to your diet. The most important thing you can do is drink enough fluid. Drink enough fluid to keep your urine pale yellow. Talk to your dietitian about how much calcium you should have each day, and eat less salt and animal protein as told by your dietitian. This information is not intended to replace advice given to you by your health care provider. Make sure you discuss any questions you have with your health care provider. Document Revised: 08/27/2022 Document Reviewed: 08/27/2022 [employer] Patient Education 2022 [employer]. Follow Up Care 06/16/2023 11:07:45 With:Ronnie JOHNS, Keerthi Myers, URL, URO Address: When: Unknown Comments:Schedule stone procedure [facility] Evaluation + Plan note Note Date & Type Note Facility Evaluation + Plan note No data available for this section [facility] Evaluation note Note Date & Type Note Facility Evaluation note No assessment information availa [facility] Work Phone: Progress note Note Date & Type Note Facility Progress note No data available for this section [facility] Summary Purpose Family History Relationship Condition Age at Onset Recorded Date/T [...] section and content) DATE CREATED AUTHOR 03/12/2021 [facility] DATE CREATED AUTHOR AUTHOR'S ORGANIZ ATION 09/01/2022 [facility] DATE CREATED AUTHOR AUTHOR'S ORGANIZ ATION 01/30/2023 [facility] DATE CREATED AUTHOR AUTHOR'S ORGANIZ ATION 05/27/2023 [facility] EPIC Goals (unrecognized section and content) Goals may be documented in a n alternate section No data available for this section Patient Care team informatio n (unrecognized section and content) Personnel Name: ADARSH MANRIQUE MD Address: Address: [address] [place] [address] FOR RECORDS PERTAINING TO PATIENTS WHO ARE [...] BE BASED ON THE PRIMARY CLINICAL RECORDS. [facility]. provides no warranty or guarantee of the accuracy or completeness of information in this document.
--- NOTE | 2023-06-28 12:29 | ECG_ITS ---
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
[2023-06-28 13:12] LABS: Basophils Absolute Auto 0.1 10^3/uL (0.0-0.1); Basophils Percent Auto 1.9 % (0.2-2.0); Eosinophils Absolute Auto 0.2 10^3/uL (0.0-0.7); Eosinophils Percent Auto 2.7 % (0.9-7.0); Hematocrit 38.9 % (36.0-48.0); Hemoglobin 12.5 g/dL (12.0-16.0); Immature Granulocytes Abs Auto 0.05 10^3/uL (0.00-0.03); Immature Granulocytes Pct Auto 0.8 % (0.0-0.5); Lymphocytes Absolute Auto 1.7 10^3/uL (1.2-3.8); Lymphocytes Percent Auto 27.4 % (20.5-60.0); Mean Corpuscular HGB Conc 32.1 g/dL (29.9-35.2); Mean Corpuscular Hemoglobin 29.5 pg (26.7-34.0); Mean Corpuscular Volume 91.7 fL (81.0-99.0); Mean Platelet Volume 9.3 fL (9.5-13.5); Monocytes Absolute Auto 0.5 10^3/uL (0.3-0.8); Monocytes Percent Auto 7.1 % (1.7-12.0); Neutrophils Absolute Auto 3.8 10^3/uL (1.4-6.5); Neutrophils Percent Auto 60.1 % (43.0-75.0); Platelet Count 592 10^3/uL (150-450); Red Blood Count 4.24 10^6/uL (4.20-5.40); Red Cell Distribution Width 13.5 % (11.0-15.0); White Blood Count 6.3 10^3/uL (4.0-11.0)
[2023-06-28 13:30] LABS: BUN Creatinine Ratio 26.3; Calcium 10.1 mg/dL (8.5-10.1); Carbon Dioxide 22.8 mmol/L (21.0-32.0); Chloride 105 mmol/L (98-107); Estimated GFR (African America >60 (>=60); Estimated GFR (Non-African Ame >60 (>=60); Glucose 85 mg/dL (74-106); Potassium 3.8 mmol/L (3.5-5.1); Sodium 136 mmol/L (136-145)
[2023-06-28 13:54] LABS: INR 1.01; Partial Thromboplastin Time 30.8 sec (22.3-36.2); Prothrombin Time 10.7 sec (9.0-11.6)
== END 2023-06-28 12:09 | disposition home or self-care (01) ==
PROVIDERS: PCP Internal Medicine; Visit Provider Urology
DX: Z01.810 Encounter for preprocedural cardiovascular examination (principal); Z01.812 Encounter for preprocedural laboratory examination; N20.1 Calculus of ureter; I10 Essential (primary) hypertension; Z79.01 Long term (current) use of anticoagulants
CPT/HCPCS: 80048; 85025; 85610; 85730; 93005; G0463

== ENCOUNTER 2023-07-14 13:58 | Outpatient (OUT) | payer MEDICARE, OTHER, SELFPAY ==
--- OUTSIDE RECORDS SUMMARY | 2023-07-14 14:13 | XMS_ITS | CCD ---
Author Name Unknown Address [address] [place] [address] Organization [facility] Care Team Providers Care Eligibility Analyst Name Role Phone DR ADARSH CONNER Admitting Unavailable DR ADARSH CONNER Attending Unavailable DR ADARSH CONNER Primary Care Unavailable DR ADARSH CONNER Consulting Unavailable DR ASHWIN DUMONT Consulting Unavailable Sohail Grimes Attending Unavailable Sohail Grimes Admitting Adarsh Barba Primary Care Unavailable ADARSH CONNER Primary Care Physician ADARSH CONNER Attending Unavailable ADARSH CONNER Attending Unavailable CONNER AVLERIO Attending Unavailable Keerthi Trujillo Attending Unavailable Keerthi Trujillo Referring Unavailable Keerthi Trujillo Attending Unavailable Allergies Allergy Classification Reported Allergen(s) Allergy Type Date of Onset Reaction(s) Facility (1 source) Nitrofurantoin Drug Allergy [facility] Repository (2 sources) Nitrofurantoin; Translations: [nitrofurantoin] Drug Allergy 09-14-19 19 Gastrointestinal Upset [facility] (1 source) NITROFURANTOIN MONOHYD/M-CRYST; Translations: [NITROFURANTOIN MONOHYD/M-CRYST] Propensity to adverse reactions to drug (disorder) 07-09-19 [facility] Repository (1 source) ALLERGIES NOT ON FILE; Translations: [ALLERGIES NOT ON FILE] Propensity to adverse reactions (disorder) [facility] Repository Medications Current Medications Medication Drug Class(es) Dates [...] PO Daily September 29, 2018 12:00am atorvastatin (3 sources) [...] TAB PO Daily September 29, 2018 12:00am cefdinir 300 mg [...] unit Tablet Active 1000 UNIT PO Daily September 29, 2018 12:00am Start: 07-26-2018 End: [...] 10 ML PO EVERY 4-6 HOURS 200 7 November 03, 2018 12:00am docusate sodium 100 [...] Daily 30 September 29, 2018 12:00am omeprazole 40 mg [...] bedtime 15 September 29, 2018 12:00am sennosides, long term 8.6 mg oral tablet (1 source) Start: [...] 500 MG PO Four times daily 16 September 23, 2018 12:00am September 29, 2018 [...] Name Value Interpretation Reference Range Facil ity Outside Recordson 07-13-2023 Outside Records [id number]#1. 00TIFF [facility] Lab Reportson 06-30-2023 Lab Reports [id number]#1.0 0TIFF [facility] ECG 12-Leadon 06-29-2023 ECG 12-Lead [id number]#1.0 0TIFF [facility] Consent for Procedure/Surger yon 06-25-2023 Consent for Procedure/Surgery [id number]#1. 00TIFF [facility] Lab Reportson 06-24-2023 Lab Reports [id number]#1.0 0TIFF [facility] Screenson 06-24-2023 Screens [id number]#1. 00TIFF [facility] Ambulatory Visit Summaryon 0 06-23-2023 Ambulatory Visit Summary MAVIS PORTER :1945 Visit Date:06/23/2023 Ambulatory Visit Instructions Your Diagnosis Kidney stone Your Care Team Attending Physician - Ronnie JOHNS, Keerthi Rojas. Primary Care Physician - ADARSH CONNER MD This Is Your Medications List Contact prescribing physician if questions or concerns aspirin (aspirin 81 mg oral tablet) atorvastatin cefdinir (cefdinir 300 mg Cap) cholecalciferol (Vitamin D3) latanoprost ophthalmic multivitamin with minerals (Citracal Plus Bone Density Builder) omeprazole (omeprazole 40 mg Cap-DR) tamsulosin (tamsulosin 0.4 mg Cap) topiramate Procedures Performed Cystoscopic insertion of ureteric stent (06/15/2023), ESWL of kidney (01/31/2021), Biopsy of breast, Colonoscopy, Cystoscopy, History of tonsillectomy. Discharge Vitals Heart Rate (Peripheral) 67 Respiratory Rate 16 Blood Pressure 118/67 Height 153 cm Height 60 in Weight 73 kg Weight 160.6 lb BMI 31.18 What to do next You Need to Schedule the Following Appointments Follow Up with Ronnie JOHNS, Keerthi Myers, URL, URO When: Comments: Schedule stone procedure Where: Medications What How Much When Instructions Unchanged aspirin (aspirin 81 mg oral tablet) By Mouth Every day Contact prescribing physician if questions or concerns Unchanged atorvastatin By Mouth Every day Contact prescribing physician if questions or concerns Unchanged cefdinir (cefdinir 300 mg Cap) Contact prescribing physician if questions or concerns Unchanged cholecalciferol (Vitamin D3) Contact prescribing physician if questions or concerns Unchanged latanoprost ophthalmic Once a day (in the evening) Contact prescribing physician if questions or concerns Unchanged multivitamin with minerals (Citracal Plus Bone Density Builder) By Mouth Every day Contact prescribing physician if questions or concerns Unchanged omeprazole (omeprazole 40 mg Cap-DR) Contact prescribing physician if questions or concerns Unchanged tamsulosin (tamsulosin 0.4 mg Cap) Contact prescribing physician if questions or concerns Unchanged topiramate 25 Milligram By Mouth Contact prescribing physician if questions or concerns Allergies No Known Allergies Problems Ongoing - Any problem that you are currently receiving treatment for. Acute head injury Atypical migraine Cancer of abdomen cyst Hyperlipidemia Kidney stone Personal history of kidney stones UTI (urinary tract infection) UTI symptoms Historical - Any problem that you are no longer receiving treatment for. Hypertension Patient Survey You may receive a survey via text or e-mail asking about your office visit. Please share your experience with us by completing your survey. We appreciate your feedback and thank you for choosing us for your care. Education Materials Dietary Guidelines to Help Prevent Kidney Stones [...] for following this plan? Reading food labels ? Choose foods with no salt added or low-salt labels. Limit your salt (sodium) intake to less than 1,500 mg a day. ? Choose foods with calcium for each meal and snack. Try to eat about 300 mg of calcium at each meal. Foods that contain 200?500 mg of calcium a serving include: ? 8 oz (237 mL) of milk, hnwbvyw-vgrvzyiggaqe-e airy milk, and calcium-fortifiedfruit juice. Calcium-fortified means that calcium has been added to these drinks. ? 8 oz (237 mL) of kefir, yogurt, and soy yogurt. ? 4 oz (114 g) of tofu. ? 1 oz (28 g) of cheese. ? 1 cup (150 g) of dried figs. ? 1 cup (91 g) of cooked broccoli. ? One 3 oz (85 g) can of sardines or mackerel. Most people need 1,000?1,500 mg of calcium a day. Talk to your dietitian about how much calcium is recommended for you. Shopping ? Buy plenty of fresh fruits and vegetables. Most people do not need to avoid fruits and vegetables, even if these foods contain nutrients that may contribute to kidney stones. ? When shopping for convenience foods, choose: ? Whole pieces of fruit. ? Pre-made salads with dressing on the side. ? Low-fat fruit and yogurt smoothies. ? Avoid buying frozen meals or prepared deli foods. These can be high in sodium. ? Look for foods with live cultures, such as yogurt and kefir. ? Choose high-fiber grains, such as whole-wheat breads, oat bran, and wheat cereals. Cooking ? Do not add salt to food when cooking. Place a salt shaker on the table and allow each person to (more content not included)... Normal [facility] Patient Educationon 06-23-19 Patient Education Nephrology Dietary Guidelines to Help Prevent Kidney Stones [...] for following this plan? Reading food labels ? Choose foods with no salt added or low-salt labels. Limit your salt (sodium) intake to less than 1,500 mg a day. ? Choose foods with calcium for each meal and snack. Try to eat about 300 mg of calcium at each meal. Foods that contain 200?500 mg of calcium a serving include: ? 8 oz (237 mL) of milk, tlchypu-drujkyweusdb-j airy milk, and calcium-fortifiedfruit juice. Calcium-fortified means that calcium has been added to these drinks. ? 8 oz (237 mL) of kefir, yogurt, and soy yogurt. ? 4 oz (114 g) of tofu. ? 1 oz (28 g) of cheese. ? 1 cup (150 g) of dried figs. ? 1 cup (91 g) of cooked broccoli. ? One 3 oz (85 g) can of sardines or mackerel. Most people need 1,000?1,500 mg of calcium a day. Talk to your dietitian about how much calcium is recommended for you. Shopping ? Buy plenty of fresh fruits and vegetables. Most people do not need to avoid fruits and vegetables, even if these foods contain nutrients that may contribute to kidney stones. ? When shopping for convenience foods, choose: ? Whole pieces of fruit. ? Pre-made salads with dressing on the side. ? Low-fat fruit and yogurt smoothies. ? Avoid buying frozen meals or prepared deli foods. These can be high in sodium. ? Look for foods with live cultures, such as yogurt and kefir. ? Choose high-fiber grains, such as whole-wheat breads, oat bran, and wheat cereals. Cooking ? Do not add salt to food when cooking. Place a salt shaker on the table and allow each person to add their own salt to taste. ? Use vegetable protein, such as beans, textured vegetable protein (TVP), or tofu, instead of meat in pasta, casseroles, and soups. Meal planning ? Eat less salt, if told by your dietitian. To do this: ? Avoid eating processed or pre-made food. ? Avoid eating fast food. ? Eat less animal protein, including cheese, meat, poultry, or fish, if told by your dietitian. To do this: ? Limit the number of times you have meat, poultry, fish, or cheese each week. Eat a diet free of meat at least 2 days a week. ? Eat only one serving each day of meat, poultry, fish, or seafood. ? When you prepare animal proteins, cut pieces into small portion sizes. For most meat and fish, one serving is about the size of the palm of your hand. ? Eat at least five servings of fresh fruits and vegetables each day. To do this: ? Keep fruits and vegetables on hand for snacks. ? Eat one piece of fruit or a handful of berries with breakfast. ? Have a salad and fruit at lunch. ? Have two kinds of vegetables at dinner. ? You may be told to limit foods that are high in a substance called oxalate. These include: ? Spinach (cooked), rhubarb, beets, sweet potatoes, and Bahamian chard. ? Peanuts. ? Potato chips, andorran fries, and baked potatoes with skin on. ? Nuts and nut products. ? Chocolate. ? If you regularly take a diuretic medicine, make sure to eat at least 1 or 2 servings of fruits or vegetables that are high in potassium each day. These include: ? Avocado. ? Banana. ? Monarch, prune, carrot, or tomato juice. ? Baked potato. ? Cabbage. ? Beans and split peas. Lifestyle ? Drink enough fluid to keep your urine pale yellow. This is the most important thing you can do. Spread your fluid intake throughout the day. ? If you drink alcohol: ? Limit how much you have to: ? 0?1 drink a day for women who are not . ? 0?2 drinks a day for men. ? Know how much alcohol is in your drink. In the [place] one drink equals one 12 oz bottle of beer (355 mL), one 5 oz glass of wine (148 mL), or one 1? oz glass of hard liquor (44 mL). ? Lose weight if told by your health care provider. Work with your dietitian to find an eating plan and weight loss strategies that work best for you. General information ? Talk to your health care provider and dietitian about taking daily supplements. Depending on your health and the cause of your kidney stones, you may be told: ? Do not take high-dose supplements of vitamin C (1,000 mg a day or more). ? To take a calcium supplement. ? To take a daily probiotic supplement. ? To take other supplements such as magnesium, fish oil, or vitamin B6. ? Take uwxk-cyg-ujcdvtk and prescription medicines only as told by your health care provider. These include supplements. What foods sh (more content not included)... Normal [facility] Urology Office/Clinic Noteon 06-23-2023 Urology Office/Clinic Note Chief Complaint f/u to [facility] Consult *S/P Cysto/Lt Stent Placement HPI Staff PRW pt Last seen in our office 01/06/21 due to Kidney Stone & UTI. S/P Lt ESWL 02/27/21 by PRW Post op KUBs reviewed. No follow up. Pt is here today for a F/U to [facility] Consult on 06/15/23 CC left lower quadrant pain with nausea and vomiting, urinary incontinence, some dysuria, CT abdomen pelvis w con @ [facility] Cystoscopy , left stent placement @ [facility] 06/15/23 *Taking Tamsulosin 0.4 mg qd for stent placement * Oxybutynin 5 mg TID for bladder spasms, Pyridium PRN for dysuria* Pt states she took a couple of the oxybutynin, then stopped due to feeling like she did not have to keep taking. Not taking the Pyridium, quit taking due to not hurting. Previous DX; Kidney stones, UTI C&S 1/16/24 *>100k E Coli Unable to locate PVR on [facility] system. Denies current flank pain. Denies pain/burning and visible blood in urine. 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 Still taking Cefdinir. Has not been straining urine, has not seen a stone pass. Would like to discuss possible annual check ups to try and prevent stone flare ups in future. History of Present Illness Tests reviewed: reviewed UA and External Records including labs, urine culture, notes and CT scan I have reviewed the previous health record information and history for this patient from and external providers I have reviewed and verified the staff HPI to be accurate for this encounter. There have been no associated fever, chills, flank pain, or blood in the urine. Denies any urinary infections since last encounter. Review of Systems PHQ Score Initial Depression Screen Score: 0 SCORE ROS - Provider Constitutional: denies weight loss, denies hot flashes. Eyes: denies eye problems. Gastrointestinal: denies nausea, denies vomiting. Cardiovascular: denies chest pain or angina. Integumentary: no dryness Musculoskeletal: denies musculoskeletal symptoms. ENMT: denies otolaryngeal symptoms. Respiratory: no shortness of breath. Heme/Lymph: denies easy bleeding tendency, denies easy bruising tendency. Psychiatric: no confusion, no anxiety. Genitourinary: See HPI. Physical Exam Vitals & Measurements HR: 67(Peripheral) RR: 16 BP: 118/67 HT: 60 in HT: 153 cm WT: 73 kg WT: 160.6 lb BMI: 31.18 General Appearance: alert , no acute distress, well nourished, well developed female. Genitourinary: bladder nonpalpable, no flank pain. Assessment/Plan 78-year-old female with a history of recurrent stones was seen in consultation at [facility] on 06/15/2023 with a 6 x 4 mm left proximal ureteral stone, moderate hydronephrosis and UTI s/p cystoscopy, left ureteral stent placement. Colorblind 1. Ureteral stone (N20.1: Calculus of ureter) [facility] Consult on 06/15/23 CC left lower quadrant pain with nausea and vomiting, urinary incontinence, dysuria CT abdomen pelvis w con @ [facility] - 6 x 4 mm left proximal ureteral stone, moderate hydronephrosis, Delayed nephrogram. s/p Cystoscopy, left stent placement UC&S 06/15/23 *>100k E Coli, resistant to FQ Still taking Cefdinir, 3 days left Denies current flank pain, tolerating stent well, not requiring medications for this. Discussed management options including extracorporeal shockwave lithotripsy vs ureteroscopy with laser lithotripsy/stone basket extraction possible stent removal vs exchange. Risks/benefits of each were discussed including but not limited to: ESWL- bleeding, hematoma, pain, infection, inability to break up the stone, ureteral obstruction, cardiac arrhythmias, damage to surrounding structures and need for additional procedures; ureteroscopy - bleeding, pain, infection, damage to surrounding structures, ureteral perforation, stricture, inability to treat the stone and need for additional procedures. If a stent is placed, pt understands this is not permanent and needs to be removed or exchanged within 3 months to prevent encrustation, infection, permanent renal damage and need for more invasive procedures. All questions/concerns were discussed. Pt to call the office if she encounters any issues prior. Pt acknowledges understanding. -Will schedule cysto, Lt RPG, ureteroscopy, Laser Lithotripsy/stone extraction, stent exchange versus removal. The procedural risks, benefits, details, and treatment alternatives have been discussed with the patient. These include bleeding, infection, inability to break or retrieve all of the stone, injury to the ureter (the tube which connects the kidney to the bladder), injury to the kidney scarring of the ureter, and need for repeat procedures, among others. Full informed consent has been obtained. Will order General anesthesia. 2. Kidney stones (N20.0: Calculus of kidney) Last seen in our office 01/06/21 due to Kidney Stone & UTI. S/P Lt ESWL 02/27/[address] AP wo 06/15/23 - BL kidney stones L>R up to 4 mm -We will try to treat left-sided stones at the time of ureteroscopy as above -Dietary modifications discussed. Consider metabolic (more content not included)... Normal [facility] Comment on above: Result Comment: Elec tronically Signed By: Ronnie JOHNS, Keerthi Myers\.br\Date and Time Signed: 06/23/23 20:21 EST RAD - MISCon 06-17-2023 RAD - MISC [id number]#1.0 0TIFF Normal [facility] Consultation Noteon 06-16-19 24 Consultation Note [id number] 0TIFF Normal [facility] Operative Reporton Operative Report [id number] 0TIFF Normal [facility] MG MAMM SCREEN 3D MARCOS CADon 08-24-2022 MG MAMM SCREEN 3D MARCOS CAD Patient: MAVIS PORTER Exam Date: 08/24/2022 : 1945 Gender:F Ordering : DR ADARSH CONNER M.D. Admission #: [id number] Family : Order #: [id number] CLICK HERE TO VIEW EXAM RADIOLOGY REPORT [...] mouth cancer at age 71. LOCATION: [facility] BREAST COMPOSITION: Heterogeneously dense,which may obscure [...] Dumont M.D. on 08/24/2022 at 12:10 Normal [facility] Vital Signs Date Time Vital Sign Value Performing Clinician Faci lity 06-23-2023 10:26-0500 Blood Pressure Location Keerthi Trujillo [facility] 06-23-2023 10:26-0500 Diastolic blood pressure 67 mm[Hg] Keerthi Lue [facility] 06-23-2023 10:26-0500 Heart rate 67 /min Keerthi Lue [facility] 06-23-2023 10:26-0500 Respiratory rate 16 /min Keerthi Lue [facility] 06-23-2023 10:26-0500 Systolic blood pressure 118 mm[Hg] Keerthi Lue [facility] Encounters Encounter Date Encounter Type Care Provider Facility Start: 07-09-2023 End: 07-09-[address] [facility] Start: 06-28-2023 End: 06-28-2023 ambulatory ADARSH CONNER Not Available Start: 06-23-2023 End: 06-24-2023 ambulatory Keerthi Trujillo Facility:[facility] Start: 06-23-2023 End: 06-23-2023 Patient encounter procedure Keerthi Trujillo [facility] Start: 06-15-2023 End: 06-16-2023 ambulatory Keerthi Trujillo Facility:[id number] Start: 05-26-2023 End: 05-26-2023 ambulatory ADARSH CONNER Not Available Start: 10-22-2022 End: 10-22-2022 Emergency department patient visit [facility] Start: 08-24-2022 End: 08-25-[address] ADARSH CONNER Facility: Start: 04-30-2021 End: 04-30-2021 ambulatory Sohail Grimes Facility:[facility] Procedures Date Procedure Procedure Detail Performing Clinician Start: 06-15-2023 Cystoscopic insertio n of ureteric stent Keerthi Lue Start: 01-31-2021 Extracorporeal shock wave lithotripsy of calculus of kidney Keerthi Lue Biopsy of breast Keerthi Lue Colonoscopy Keerthi Lue Cystoscopy Keerthi Lue History of tonsillectomy Desirae hy Lue Immunizations Immunization Date Immunization Notes Care Provider Lizzeth emmanuel 04-07-2023 influenza virus vacc ine, unspecified formulation Keerthi Lue [facility] 03-19-2022 influenza virus vacc ine, unspecified formulation Keerthi Lue [facility] 12-24-2021 SARS-CoV-2 mRNA (xlnbirzesuv-slbe-cndgoe e) vaccine Keerthi Lue [facility] Comment on above: Result Comment: 2023: [id number] 05-01-2021 influenza virus vacc ine, unspecified formulation Keerthi Lue [facility] 08-15-2020 SARS-CoV-2 (COVID-19 ) mRNA BNT-162b2 vax Keerthi Lue [facility] 07-29-2020 SARS-CoV-2 (COVID-19 ) mRNA-1273 vaccine Keerthi Lue [facility] 07-25-2020 SARS-CoV-2 (COVID-19 ) mRNA BNT-162b2 vax Keerthi Lue [facility] 07-01-2020 SARS-CoV-2 (COVID-19 ) uSDC-6161 vaccine Keerthi Lue [facility] 03-04-2020 influenza virus vacc ine, unspecified formulation Keerthi Lue [facility] 04-18-2019 influenza virus vacc ine, unspecified formulation Keerthi Lue [facility] 06-15-2018 zoster vaccine recombinant Keerthi Lue [facility] 01-11-2018 influenza virus vacc ine, unspecified formulation Keerthi Lue [facility] 01-11-2018 zoster vaccine recombinant Keerthi Lue [facility] 03-01-2017 pneumococcal polysaccharide vaccine, 23 valent Keerthi Lue [facility] 02-17-2017 influenza virus vacc ine, unspecified formulation Keerthi Lue [facility] 09-02-2015 pneumococcal conjuga te vaccine, 13 valent Keerthi Lue [facility] 12-31-2014 zoster vaccine, live Keerthi L ue [facility] 09-06-2014 pneumococcal conjuga te vaccine, 13 valent Keerthi Lue [facility] 04-24-2013 influenza virus vacc ine, unspecified formulation Keerthi Lue [facility] Payers Date Payer Category Payer Self-pay [id number] 1958 Medicare [id number] 1958 Private Health Insurance [id number] 1945 Unknown [id number] 1945 Unknown [id number] [id number] 1945 Unknown [id number] [id number] 1945 Unknown [id number] [id number] 1945 Unknown [id number] [id number] Unknown [id number] Conversion Insurance [id number] Unknown [id number] [id number] Social History Date Type Detail Facility Tobacco smoking stat [facility] Unknown if ever smoked [facility] Work Phone: Start: 1945 Sex Assigned At Female [facility] Start: 06-23-2023 Tobacco smoking status Never s moked tobacco (finding) [facility] Tobacco smoking status Never [facility] Sex Assigned At Female [facility] Medical Equipment Procedure Code Equipment Code Equipment Origin al Text Equipment Identifier Dates Thoracotomy PROGEL PLEURAL A IR LEAK FDA Start: 09-20-2018 Functional Status Date Assessment Result Facility 06-23-2023 Functional Status N/A [facility] History and physical note 07-13-2023 Note Date & Type Note Facility 07-13-2023 Note [id number] 1#1.00TIFF [facility] Discharge instructions 06-23-2023 Note Date & [...] include: ?8 oz (237 mL) of milk, ompswur-cjllnimaxsjy-zxyyy milk, and calcium-fortifiedfruit juice. Calcium-fortified means that [...] ?Spinach (cooked), rhubarb, beets, sweet potatoes, and Bahamian chard. ?Peanuts. ?Potato chips, andorran fries, and baked potatoes with skin on. ?Nuts and nut products. ?Chocolate. If you regularly take a diuretic medicine, make sure to eat at least 1 or 2 servings of fruits or vegetables that are high in potassium each day. These include: ?Avocado. ?Banana. ?Monarch, prune, carrot, or tomato juice. ?Baked potato. [...] magnesium, fish oil, or vitamin B6. Take ugig-yhf-vrtemvn and prescription medicines only as told by [...] Casseroles. Pizza. Lasagna. Frozen meals. Potato chips. Sinhala fries. The items listed above may not [...] provider. Document Revised: 08/27/2022 Document Reviewed: 08/27/2022 [employer] Patient Education 2022 [employer] Follow Up Care 06/16/2023 11:07:45 With:Ronnei JOHNS, Keerthi Myers URL, [facility] Address: When: Unknown Comments:Schedule stone procedure [facility] Evaluation + Plan note Note Date & Type Note Facility Evaluation + Plan note No data available for this section [facility] Evaluation note Note Date & Type Note Facility Evaluation note No assessment information availa [facility] Work Phone: Progress note Note Date & Type Note Facility Progress note No data available for this section [facility] Summary Purpose Family History No Family History [...] ized section and content) DATE CREATED AUTHOR 09/01/2022 [facility] DATE CREATED AUTHOR AUTHOR'S ORGANIZ ATION 01/30/2023 [facility] DATE CREATED AUTHOR AUTHOR'S ORGANIZ ATION 06/29/2023 [facility] DATE CREATED AUTHOR AUTHOR'S ORGANIZ ATION 07/10/2023 [facility] DATE CREATED AUTHOR AUTHOR'S ORGANIZ ATION 07/14/2023 [facility] Goals (unrecognized section and content) Goals may be documented in a n alternate section No data available for this section Patient Care team informatio n (unrecognized section and content) Personnel Name: ADARSH CONNER MD Address: Address: [address] [place] [address] FOR RECORDS PERTAINING TO PATIENTS WHO ARE [...] BE BASED ON THE PRIMARY CLINICAL RECORDS. [facility] provides no warranty or guarantee of the accuracy or completeness of information in this document.
--- NOTE | 2023-07-14 14:42 | CA_ITS ---
Patient Name: MAVIS PORTER MR#: [id number] : 1945 Exam Date: 07/14/2023 Ordering Doctor: CONNER VALERIO M.D. ECHOCARDIOGRAM REPORT PROCEDURE: CA ECHO DOPPLER COMPLETE INDICATIONS: Abnormal ECG COMPARISON: None. DESCRIPTION: COMPLETE ECHOCARDIOGRAM Real-time transthoracic echocardiography with 2D, M-mode, spectral and color flow Doppler performed. QUALITY: Technical quality was good. 60 , 160#, BSA 1.70 m2 LEFT VENTRICLE: Normal chamber size. Thickened septal wall. Normal systolic function. LV EF: Normal left ventricular ejection fraction, (>55%). DIASTOLIC: Diastolic function is indeterminate. ATRIAL SEPTUM: Visually appears intact. LEFT ATRIUM: Moderate dilatation. RIGHT ATRIUM: Mild dilatation. RIGHT VENTRICLE: Normal chamber size. Normal right ventricular systolic function. TRICUSPID VALVE: Normal mobility and thickness. No stenosis with mild regurgitation. No evidence of pulmonary hypertension. RVSP 33 mmHg MITRAL VALVE: Mildly thickened with normal mobility. No evidence of mitral valve stenosis. There is no mitral annular calcification. Trivial mitral regurgitation. AORTIC VALVE: Normal trileaflet appearance. No visible sclerosis. Normal leaflet mobility. No evidence of aortic valve stenosis. No aortic regurgitation. AORTIC ROOT: Normal diameter and appearance. PULMONIC VALVE: Normal thickness and mobility. No stenosis. Trivial regurgitation. PERICARDIUM: Small circumferential pericardial effusion. IVC: Collapses with inspirations. IVC is normal in size. PLEURA: CONCLUSION: 1. Normal ventricular size and systolic function. 2. No significant valvular dysfunction. 3. Mild to moderate biatrial dilatation. 4. Normal right-sided pressures. 5. Small circumferential pericardial effusion. Adult Echocardiography Procedure Report Left Ventricle LVEDD (3.7 - 5.6 cm): 4.06 cm LVESD (2.2 - 4.0 cm): 2.29 cm LVIVS thickness (0.6 - 1.2 cm): 1.16 cm LVPW thickness (0.5 - 1.0 cm): 0.95 cm e': 0.05 m/s E - e': 12.68 LVOT Max Gradient: 3.59 mm[Hg] LVOT Area (cm2): 0.95 m/s Peak Velocity (LVOT): 0.95 m/s Mean Velocity (LVOT): 0.55 m/s LVOT Diameter 2.04 cm Left Atrium LA Volume Index (2D A2C): 23.02 ml/m2 Left Atrium Systolic Dimension: 3.72 cm Mitral Valve MV E to A Ratio: 0.63 Mitral Valve A-Wave Peak Velocity: 1.05 m/s Mitral Valve E-Wave Peak Velocity: 0.66 m/s Right Ventricle Aorta AO Root Diam: 3.35 cm Ascending Ao Diam: 2.82 cm Aortic Valve AoV Area (Peak Esdras): 2.55 cm2, 2.55 cm2 AoV Area (VTI): 2.49 cm2, 2.49 cm2 Peak Velocity(Antegrade Flow): 1.22 m/s Peak Gradient(Antegrade Flow): 5.92 mm[Hg] Mean Velocity(Antegrade Flow): 0.74 m/s Mean Gradient(Antegrade Flow): 2.60 mm[Hg] Velocity Time Integral: 26.34 cm Tricuspid Valve Peak Velocity (Regurgitant Flow): 2.73 m/s, 2.69 m/s Pulmonic Valve Peak Gradient: 2.77 mm[Hg], 4.01 mm[Hg] Right Atrium Right Atrium Systolic Pressure: 35.75 ml, 35.75 ml Dictated by: Guzman Swenson M.D. on 07/14/2023 at 19:57 Approved by: Guzman Swenson M.D. on 07/14/2023 at 20:01
== END 2023-07-14 13:59 | disposition home or self-care (01) ==
LOC: CARD 13:58
PROVIDERS: PCP Internal Medicine; Visit Provider Internal Medicine Cardiovascular Disease
DX: R94.31 Abnormal electrocardiogram [ECG] [EKG] (principal)
CPT/HCPCS: 93306

== ENCOUNTER 2023-09-15 07:57 | Outpatient (OUT) | payer MEDICARE, OTHER, SELFPAY ==
--- NOTE | 2023-09-15 07:59 | US_ITS ---
[address] [address] Patient Name: MAVIS PORTER MRN: [id number] date: 1945 Sex: F Assigned Patient Location: Current Patient Location: [place] Accession/Order Number: [id number] Exam Date: 09/15/2023 08:02 Report Date: 09/15/2023 09:16 At the request of: RHINA BAPTISTE Procedure: US renal BI EXAMINATION: US renal BI HISTORY: Kidney Stones COMPARISON: No relevant comparison available. TECHNIQUE: Ultrasound examination was performed of the bladder. FINDINGS: Right Kidney: Normal in size, contour and echotexture. Multiple echogenic foci, nonobstructing nephrolithiasis. No solid cortical mass. Mild pelviectasis. 1.3 cm area of anechoic echogenicity mid pole cortex, simple cyst Height: 4.9 cm Length: 11.2 cm Width: 5.6 cm Left Kidney: Normal in size, contour and echotexture. Multiple echogenic foci, nonobstructing nephrolithiasis. No solid cortical mass or hydronephrosis. Height: 4.5 cm Length: 10.3 cm Width: 5.0 cm Urinary bladder is mildly distended with a volume of 79 cc. Echogenic foci within the urinary bladder possibly representing free floating calcifications versus wall calcifications US/US renal BI IMPRESSION: Bilateral nonobstructing nephrolithiasis Electronically authenticated by: MOSHE CALERO Date: 09/15/2023 09:16
--- OUTSIDE RECORDS SUMMARY | 2023-09-15 08:00 | XMS_ITS | CCD ---
Author Organization [facility] Care Team Providers Care After School Program Director Name Role Phone DR ADARSH CONNER Admitting Unavailable DALILA, DR AGUILAR Attending Unavailable DR ADARSH CONNER Primary Care Unavailable DR ADARSH CONNER Consulting Unavailable DAHIANA, DR ASHWIN Hightower Consulting Unavailable Sohail Grimes Attending Sohail Little Admitting Adarsh Barba Primary Care ADARSH Barba Primary Care Physician ADARSH CONNER Attending Unavailable ADARSH CONNER Attending Unavailable Keerthi Trujillo Attending Unavailable Lue Keerthi MYina Admitting Unavailable Lue, Keerthi MYina Referring Unavailable Lue Keerthi MYina Attending Unavailable LueKeerthi MYina Admitting Unavailable Lue Keerthi MYina Referring Unavailable Lue Keerthi MYina Referring Unavailable Lue Keerthi MYina Attending Unavailable LueKeerthi MYina Attending Unavailable LueKeerthi MYina Attending Unavailable CINDY JALLOH Attending Unavailable CINDY JALLOH Attending Unavailable Allergies Allergy Classification Reported Allergen(s) Allergy Type Date of Onset Reaction(s) Facility (1 source) Nitrofurantoin Drug Allergy [facility] Repository (2 sources) Nitrofurantoin; Translations: [nitrofurantoin] Drug Allergy 09-14-19 [facility] (1 source) NITROFURANTOIN MONOHYD/M-CRYST; Translations: [NITROFURANTOIN MONOHYD/M-CRYST] Propensity to adverse reactions to drug (disorder) 07-09-19 [facility] Repository (1 source) ALLERGIES NOT ON FILE; Translations: [ALLERGIES NOT ON FILE] Propensity to adverse reactions (disorder) [facility] Repository Medications Current Medications Medication Drug Class(es) Dates Sig (Normalized) Sig (Original) acetaminophen 500 mg oral tablet (1 source) Start: 09-29-2018 take 500 mg by mouth every six hours Acetaminophen Active 500 MG PO Q6H 0 September 29, 2018 12:00am aspirin 81 mg oral tablet (5 sources) Platelet Aggregation Inhibitor, Nonsteroidal Anti-inflammatory Drug Start: 01-01-2020 take 1 mg by mouth once daily aspirin 81 mg oral tablet mg tab(s), Oral, Daily, Refills(s) 0 Start Date: 01/01/20 Status: Ordered Start: 07-26-2018 End: 09-29-2018 take 81 mg by mouth once daily Aspirin Active 81 MG PO Daily September 29, 2018 12:00am atorvastatin (5 sources) HMG-CoA Reductase Inhibitor Start: 01-01-2020 atorvastatin Oral, D aily, Refills(s) 0, High cholesterol Start Date: 01/01/20 Status: Ordered Start: 01-01-2020 atorvastatin O ral, Daily, Refills(s) 0 Start Date: 01/01/20 Status: [...] 2018 12:00am cefdinir 300 mg oral capsule (3 sources) Cephalosporin Antibacterial Start: 06-23-2023 cefdinir 300 mg Cap Refills(s) 0 Start Date: 06/23/23 Status: Ordered chlorhexidine gluconate 1.2 mg/ml mouthwash (2 sources) Start: 09-23-2018 End: 09-29-2018 Chlorhexidine Gluconate Active 15 ML MUCOUS MEM Three times daily 999September 29, 2018 12:00am cholecalciferol 0.025 mg oral [...] 2018 1:39pm Citracal Plus Bone Density Builder (3 sources) Start: 01-01-2020 Citracal Plus Bone Density Builder Oral, Daily, Refill(s) 0, Prophylaxis Start Date: 01/01/20 Status: Ordered Start: 01-01-2020 Citracal Plus Bone Density Builder [...] daily 60 September 29, 2018 12:00am latanoprost (3 sources) Prostaglandin Analog Start: 01-06-2021 latanoprost ophthalmic qPM, [...] omeprazole 40 mg delayed release oral capsule (4 sources) Proton Pump Inhibitor Start: 06-23-2023 take 1 capsule by mouth once daily omeprazole 40 mg Cap-DR 40 mg = 1 cap(s), Oral, Daily, Refills(s) 0, Indigestion Start Date: 06/23/23 Status: Ordered Start: 09-29-2018 [...] at bedtime September 29, 2018 12:00am sennosides, custodial 8.6 mg oral tablet (1 source) Start: 09-29-2018 take 2 tablets by mouth once daily Sennosides (Senna Lax) 8.6 mg Tablet Active 2 TAB PO DAILY@12 60 September 29, 2018 12:00am sulfamethoxazole 800 mg / trimethoprim 160 mg oral tablet (1 source) Dihydrofolate Reductase Inhibitor Antibacterial, Sulfonamide Antimicrobial Start: 07-16-2023 End: 07-21-2023 Bactrim D.S. 800 mg-160 mg Tab 1 tab(s), Oral, BID for 5 day(s), 10 tab(s), Refill(s) 0, [id number], 154, cm, 07/15/23 15:50:00 EST, Height/Length Dosing, 72.2, kg, 07/15/23 15:50:00 EST, Weight Dosing Start Date: 07/16/23 Stop Date: 07/21/23 Status: Ordered tamsulosin hydrochloride 0.4 mg oral capsule (3 sources) alpha-Adrenergic Roxy Start: 06-23-2023 tamsulosin 0.4 mg Cap Refills(s) 0 Start Date: 06/23/23 Status: Ordered topiramate 25 mg oral tablet (5 sources) Start: 01-01-2020 take 25 mg by mouth twice daily topiramate 25 mg, Oral, BID, Refills(s) 0, Migraine headache Start Date: 01/01/20 Status: Ordered Start: 07-26-2018 End: 09-29-2018 take 1 tablet by mouth once daily Topiramate (Topamax) 25 mg Tablet Active 25 MG PO Daily September 29, 2018 12:00am Vitamin D3 (3 sources) Start: 01-01-2020 take 10 ug by mouth once daily Vitamin D3 10 mcg, Oral, Daily, Refills(s) 0, Prophylaxis Start Date: 01/01/20 Status: Ordered Start: 01-01-2020 Vitamin D3 Ref ills(s) 0 [...] 5 MG PO Every 4 hours 28 September 29, 2018 November 03, 2018 3:43pm [...] living] 02-23-2019 Episodic Calculus of urinary tract (13 sources) Kidney stone; Translations: [Calculus of kidney] Onset: 06-23-2023 02-23-2019 Episodic Cancer of bronchus; lung (3 sources) Malignant tumor of lung; Translations: [Malignant neoplasm of unspecified part of left bronchus or lung] 02-23-2019 Chronic Cancer; other and unspecified primary (3 sources) Malignant neoplasm of abdomen 01-01-2020 Chronic Disorders of lipid metabolism (4 sources) Hyperlipidemia; Translations: [Hyperlipidemia, unspecified] 02-23-2019 Chronic Diverticulosis and diverticulitis (1 source) Diverticular disease; Translations: [Diverticulosis of intestine, part unspecified, without perforation or abscess without bleeding] 02-23-2019 Chronic Esophageal disorders (1 source) Gastroesophageal reflux disease; Translations: [Gastro-esophageal reflux disease without esophagitis] 02-23-2019 Chronic Essential hypertension (3 sources) Hypertensive disorder 01-06-2021 Chronic Comment on above: NO HTN DX Genitourinary symptoms and ill-defined conditions (7 sources) History of urinary tract infection; Translations: [Personal history of urinary (tract) infections] Onset: 06-23-2023 Episodic Headache; including migraine (4 sources) Migraine; Translations: [Migraine, unspecified, not intractable, [...] injuries and conditions due to external causes (3 sources) Injury of head 01-01-2020 Episodic Other nervous [...] pulmonary nodule] Onset: 04-30-2021 Urinary tract infections (4 sources) Urinary tract infectious disease; Translations: [Urinary tract infection, site not specified] 02-23-2019 Episodic Results Test Name Value Interpretation Reference Range Facility Calculus Analysison 07-27-19 24 Calcium oxalate dihydrate Infrared spectroscopy (Stone) [Mass fraction] 40 % Invalid Interpretation Code [facility] Comment on above: Performed By: #### 1 [id number] ####[id number] [place] [address] Calcium oxalate monohydrate (Stone) [Mass fraction] 10 % Invalid Interpretation Code [facility] Comment on above: Performed By: #### 1 [id number] ####[address] [address] Calculus analysis [Interp] Comment Invalid Interpretation Code [facility] Comment on above: Result Comment: Calc ium phosphate (hydroxyl form) includes hydroxyapatite, amorphous calcium phosphate, and whitlockite. Hydroxyapatite is the most common of the calcium phosphate salts found in human kidney stones. Performed By: #### 1 [id number] ####[facility] [address] [place] [address] Color (Stone) Brown Invalid Interpretation Code [facility] Comment on above: Performed By: #### 1 [id number] ####[address] [address] Composition Comment Invalid Interpretation Code [facility] Comment on above: Result Comment: Perc entage (Represents the % composition) Performed By: #### 1 [id number] ####[facility] [address] [place] [address] Disclaimer: Comment Invalid Interpretation Code [facility] Comment on above: Result Comment: This test was developed and its performance characteristics determined by [facility]. It has not been cleared or approved by the Food and Drug Administration. Performed at: [facility] [address] [id number] [place] Landeros Performed By: #### 1 [id number] ####[facility] [address] [place] [address] Hydroxyapatite: 50 % Invalid Interpretation Code [facility] Comment on above: Performed By: #### 1 [id number] ####[facility] [address] [facility] [place] [address] Laboratory comment Sanjeev (Report) Comment Invalid Interpretation Code [facility] Comment on above: Result Comment: Phys hiram questions regarding Calculi Analysis contact [facility] at: [phone]. Performed By: #### 1 [id number] ####[facility] [address] [facility] [place] [address] Please Note: Comment Invalid Interpretation Code [facility] Comment on above: Result Comment: Calc jose report will follow via computer, mail or chestnut tanner delivery. Performed By: #### 1 [id number] ####[facility] [address] [facility] [place] [address] Size (Stone) [Entitic vol] 5x3 Invalid Interpretation Code [facility] Comment on above: Result Comment: Mult iple pieces received. Dimensions of the largest piece reported. Performed By: #### 1 [id number] ####[facility] [address] [place] [address] Specimen source subject Nom Comment Invalid Interpretation Code [facility] Comment on above: Result Comment: Left Kidney Performed By: #### 1 [id number] ####[facility] [address] [facility] [place] [address] Stone Photo Comment Invalid Interpretation Code [facility] Comment on above: Result Comment: Phot ograph will follow under a separate cover Performed By: #### 1 [id number] ####[facility] [address] [facility] [place] [address] Weight (Stone) 48 mg Invalid Interpretation Code [facility] Comment on above: Performed By: #### 1 [id number] ####[facility] [address] [place] [address] Physician Orderon 07-26-2023 Physician Order [id number]#1 .00TIFF Normal [facility] IntraOperative Documentson 0 2-23-2024 IntraOperative Documents [id number]# 1.00TIFF Normal [facility] Postoperative Documentson Postoperative Documents [id number]#1 .00TIFF Normal [facility] Progress Note-Physicianon Progress Note-Physician Patient: JEANNETTE PORTER Age: 78 years Sex: Female : 1945 Associated Diagnoses: None Author: MD Mable, Deepali Rojas Postoperative Information Postoperative disposition: Postoperative disposition: To PACU. Optimetrix number: Optimetrix number [id number]. Anesthetic utilized: General. Health Status Allergies: Allergic Reactions (Selected) No Known Allergies Physical Examination VS/Measurements Pain Assessment: Controlled. General: Awake, Alert, Appropriate. Respiratory: Adequate air exchange. Cardiovascular: Stable, Normal peripheral perfusion. Neurological: Normal sensory function, Normal motor function. Assessment Anesthetic outcome No anesthetic complications noted. Adequate pain relief. able to void without difficulty, able to ambulate with assist, tolerating PO intake, no N/V. Review / Management Condition: Stable. Plan Transfer/Discharge: Transfer/Discharge Discharge when meets criteria ( To home ). [facility] Comment on above: Result Comment: Elec tronically Signed By: MD Akins Ahmad F\.br\Date and Time Signed: 07/23/23 07:59 EST Main OR Intraoperative Recor don 07-22-2023 Main OR Intraoperative Record IntraOp Document Type FT Summary Primary Physician: Keerthi Trujillo MD Finalized Date/Time: 07/22/23 08:25:02 Pt. Name: JEANNETTE PORTER /Sex: 1945 Female Med Rec #: [id number] Physician: Keerthi Trujillo MD Financial #: [id number] Pt. Type: A Room/Bed: [address] [place] [address] Admit/Disch: 07/20/23 09:32:34 - 07/20/23 14:35:00 Institution: Case Times FT Entry 1 Patient Times In Room 07/20/23 11:56:00 Out Room 07/20/23 13:00:00 Procedure Times Start 07/20/23 12:14:00 Stop 07/20/23 12:53:00 Anesthesia Times Start 07/20/23 11:56:00 Stop 07/20/23 13:00:00 Last Modified By: Verenice Sheikh 07/20/23 13:04:02 General Comments: 07/22/23 Chart opened to review and send charges [facility]oth CSFA Case Attendance FT Entry 1 Entry 2 Entry 3 Case Attendee Neymar ZAPATA, Demarcus Trujillo MD, Verenice Barbosa Role Performed Anesthesiologist Surgeon - Primary Continuous Improvement Coach - Primary Vp [employer] Time In 07/20/23 11:56:00 07/20/23 11:56:00 07/20/23 12:20:00 Time Out 07/20/23 13:00:00 07/20/23 13:00:00 07/20/23 13:00:00 Procedure CYSTOSCOPY RETROGRADE CYSTOSCOPY RETROGRADE CYSTOSCOPY RETROGRADE STENT INSERTION(Left), STENT INSERTION(Left), STENT INSERTION(Left), CYSTOSCOPY W/ HOMIUM CYSTOSCOPY W/ HOMIUM CYSTOSCOPY W/ HOMIUM LASER(Left) LASER(Left) LASER(Left) Comments DR BHAT SUPERVISING. OUT OF ROOM [id number] Last Modified By: Verenice Sheikh Kelsie E Burgderfer, Kelsie E 07/20/23 13:06:03 07/20/23 13:06:03 07/20/23 13:06:03 Entry 4 Entry 5 Entry 6 Case Attendee Anand SINGLETON, Lyly Díaz RN, Marielena Luciano Role Performed Scrub - Primary Continuous Improvement Coach - Relief Scrub - Relief Time In 07/20/23 12:10:00 07/20/23 11:56:00 07/20/23 11:56:00 Time Out 07/20/23 13:00:00 07/20/23 12:25:00 07/20/23 12:10:00 Procedure CYSTOSCOPY RETROGRADE CYSTOSCOPY RETROGRADE CYSTOSCOPY RETROGRADE STENT INSERTION(Left), STENT INSERTION(Left), STENT INSERTION(Left), CYSTOSCOPY W/ HOMIUM CYSTOSCOPY W/ HOMIUM CYSTOSCOPY W/ HOMIUM LASER(Left) LASER(Left) LASER(Left) Comments LUNCH RELIEF Last Modified By: Verenice Sheikh Kelsie E Burgderfer, Kelsie E 07/20/23 13:06:03 07/20/23 13:06:03 07/20/23 13:06:03 Entry 7 Entry 8 Case Attendee Adarsh Melgar DNP, HILDA, N. Role Performed [employer] Worker ACID LEVELER Time In 07/20/23 12:05:00 07/20/23 11:56:00 Time Out 07/20/23 13:00:00 07/20/23 12:20:00 Procedure CYSTOSCOPY RETROGRADE CYSTOSCOPY RETROGRADE STENT INSERTION(Left), STENT INSERTION(Left), CYSTOSCOPY W/ HOMIUM CYSTOSCOPY W/ HOMIUM LASER(Left) LASER(Left) Comments LUNCH RELIEF Last Modified By: Verenice Sheikh Kelsie E 07/20/23 13:06:03 07/20/23 13:06:03 General Comments: SKINNY BARTLETT [employer], ALSO IN ATTENDANCE. ADDIS CASTELLONsolutions manager Protocols FT Pre-Care Text: Implements protective measures prior to operative or invasive procedure, confirms identity before the operative or invasive procedure, verifies operative procedure, surgical site, and laterality Entry 1 Procedure(s) CYSTOSCOPY RETROGRADE Patient Identity Birthday, ID Band STENT INSERTION(Left), Verified (select at Check, Patient CYSTOSCOPY W/ HOMIUM least 2): Participation LASER(Left) Consents / H and P Anesthesia Consent, Operative Site Present Verified HandP, Surgery/Procedure Marking Verified Consent Surgical Site Yes Laterality Verified Yes Verified Procedure Verified Yes Correct Patient Yes Position Verified Availability Equipment, Implant, Prep Dry Yes Verified (If Medication, X-ray Applicable) PreOp Antibiotic Yes Time Out Ronnie JOHNS, Anand Kaur Given Participants CONSTRUCTION SALES REPRESENTATIVE, Arjun Nayak RN, Don Narayan Daniel P, Mitti DNP, HILDA, N. Time Out Complete 07/20/23 12:14:00 Outcomes Met? Yes Last Modified By: Verenice Sheikh 07/20/23 12:18:12 Post-Care Text: The patient is free from signs and symptoms of injury caused by extraneous objects Allergy Information FT Pre-Care Text: Verifies allergies Entry 1 Allergies Reviewed? Yes Allergies Reviewed Self/Patient With Outcomes Met? Yes Last Modified By: Verenice Sheikh 07/20/23 12:15:59 Post-Care Text: The patient received appropriate medication(s) safely administered during the perioperative period Surgical Procedures FT Entry 1 Entry 2 Procedure Description Procedure CYSTOSCOPY RETROGRADE CYSTOSCOPY W/ HOMIUM STENT INSERTION LASER Modifiers Left Left Surgeon Description CYSTO, RETROGRADE, CYSTO, RETROGRADE, URETEROSCOPY, LASER URETEROSCOPY, LASER LITHO, STONE LITHO, STONE EXTRACTION, BASKET, EXTRACTION, BASKET, LEFT STENT EXCHANGE LEFT STENT EXCHANGE Primary Procedure Yes No Primary Surgeon Ronnie JOHNS, Keerthi Trujillo MD, Keerthi Manning 07/20/23 12:14:00 07/20/23 12:14:00 Stop 07/20/23 12:53:00 07/20/23 12:53:00 Anesthesia Type General General Surgical Service Urology Urology Wound Class 2 - Clean (more content not included)... Normal [facility] Consent for Anesthesiaon Consent for Anesthesia [id number]# 1.00TIFF [facility] Discharge Instructionson Discharge Instructions [id number]# 1.00TIFF [facility] IntraOperative Documentson 0 07-21-2023 IntraOperative Documents [id number]# 1.00TIFF [facility] IntraOperative Documents [id number]# 1.00TIFF [facility] Preoperative Documentson Preoperative Documents [id number]# 1.00TIFF [facility] XR Urography Retrograde Left on 07-21-2023 XR Urography Retrograde Left Exam Date/Time: 07/20/2023 12:58 EST Reason for Exam: Cysto retrograde Report IMPRESSION: INTEROPERATIVE FLUOROSCOPY PROVIDED FOR DR. TRUJILLO'S RETROGRADE PROCEDURES. EXAM: XR Urography Retrograde Left DATE: 07/20/2023 12:06 PM CLINICAL HISTORY: Cysto retrograde. COMPARISON: None available. TECHNIQUE: Intraoperative fluoroscopy was provided for Dr. Trujillo's retrograde procedures. A total of 3.0 Air Kerma (Ka, r) of fluoroscopy was used with 3 fluoroscopic stills saved. No diagnostic images were obtained. A left ureteral stent is noted in expected position on the final image saved. Please see Dr. Trujillo's surgical notes for completeness. Ordering Provider: Keerthi Trujillo FINAL REPORT Dictated: 07/21/2023 12:25 pm Kasi Morgan MD Signed (Electronic Signature): 07/21/2023 12:25 pm Signed by: Kasi Morgan MD Transcribed by: VAUGHN Technologist: JUD Technical Comments Radiation Dose: Ka,r in mGy = 3.00 DAP = 228.01 [facility] Consent for Procedure/Surger yon 07-20-2023 Consent for Procedure/Surgery [id number]# 1.00TIFF [facility] Consent for Treatmenton 07-02 Consent for Treatment [id number]#1 .00TIFF [facility] Consultation Noteon 07-20-19 24 Consultation Note [id number]#1 .00TIFF [facility] Discharge Instructionson Discharge Instructions JEANNETTE PORTER :1945 Visit Date:07/20/2023 Inpatient Discharge Instructions Your Care Team Admitting Physician - Keerthi Trujillo MD Referring Physician - Keerthi Trujillo MD Reason for Your Visit URETERAL STONE Your Diagnosis Kidney stones Tests Performed Calculi Analysis Urinary -- Results Pending -- XR Urography Retrograde Left -- Results Pending -- Please visit your patient portal for your results or contact your primary care physician. This Is Your Medications List aspirin (aspirin 81 mg oral tablet) atorvastatin cefdinir (cefdinir 300 mg Cap) cholecalciferol (Vitamin D3) latanoprost ophthalmic multivitamin with minerals (Citracal Plus Bone Density Builder) omeprazole (omeprazole 40 mg Cap-DR) sulfamethoxazole-trim ethoprim (Bactrim D.S. 800 mg-160 mg Tab) tamsulosin (tamsulosin 0.4 mg Cap) topiramate Procedure History Cystoscopy and electrohydraulic lithotripsy of calculus of bladder (07/20/2023), Cystoscopic insertion of ureteric stent (06/15/2023), ESWL of kidney (01/31/2021), Biopsy of breast, Colonoscopy, Cystoscopy, History of tonsillectomy, Lung cyst removal. What to do next Instructions From Your Doctor Event Name Event Result Discharge Activity Ambulate as tolerated, Expect mild pain, Expect minimal amount of drainage and/or bleeding, Activity as tolerated Discharge Restrictions No driving for 24 hrs, Do not operate machinery or tools, Do not make important decisions for 24 hours, Do not drink alcoholic beverages for 24 hours Discharge Diet(s) Drink liquids and eat a light meal Call Your Doctor For Persistent or heavy bleeding, Temperature above 101.5 degrees, Severe pain at the operative site, Persistent vomiting Discharge Instructions Discharge Instructions New Follow Up Appointments after Discharge Follow Up with Keerthi Trujillo When: Comments: Office to call to schedule your follow up in 6 mths. Obtain renal US in 6 wks, office to call with results Medications What How Much When Instructions Next Dose Unchanged aspirin (aspirin 81 mg oral tablet) By Mouth Every day Unchanged atorvastatin By Mouth Every day Unchanged cefdinir (cefdinir 300 mg Cap) Unchanged cholecalciferol (Vitamin D3) 10 Microgram By Mouth Every day Unchanged latanoprost ophthalmic Once a day (in the evening) Unchanged multivitamin with minerals (Citracal Plus Bone Density Builder) By Mouth Every day Unchanged omeprazole (omeprazole 40 mg Cap-DR) 1 Capsules By Mouth Every day Unchanged sulfamethoxazole-trim ethoprim (Bactrim D.S. 800 mg-160 mg Tab) 1 Tablets By Mouth 2 times a day Duration: 5 Days Unchanged tamsulosin (tamsulosin 0.4 mg Cap) Unchanged topiramate 25 Milligram By Mouth 2 times a day Allergies No Known Allergies Problems Ongoing - Any problem that you are currently receiving treatment for. Acute head injury Atypical migraine Cancer of abdomen cyst History of UTI Hyperlipidemia Kidney stones Personal history of kidney stones Ureteral stone UTI (urinary tract infection) UTI symptoms Historical - Any problem that you are no longer receiving treatment for. Hypertension Devices Implanted/Removed This Visit Notice: You have devices implanted this visit that may not be MRI compatible. Implanted CYSTOSCOPY RETROGRADE STENT INSERTION Ureter L CASCADE URETERAL STENT 07/20/2023 [facility] [employer] [facility] [place], [place] Post-operative Instructions for Ureteroscopy, Laser Lithotripsy, Stone Extraction and Stent Placement There are no incisions or dressings to be concerned with, as the procedure was performed inside the urinary system. For 24 hours after surgery: ? No driving or operating machinery ? Do not make important decisions ? Do not consume alcohol, sleeping pills Stent Placement You may have a stent which spans the distance between your bladder and your kidney, allowing urine to pass through. It prevents blockage from swelling, kidney stones in ureter (tube connecting the kidney to the bladder), or scars. The presence of the stent may cause: ? Back or side pain, especially with urination ? Frequent or urgent urination ? Bladder pressure or pain ? Blood in urine You may pass stone debris or small blood clots, which is expected. Drinking plenty of water to dilute the urine may help. If there is a thread coming out of urinary channel, be careful not to accidently pull on this, as it is attached to the stent. In 4-5 days, take Bactrim antibiotic in the morning, pull off clear tape and pull on black string in a steady motion while trying to urinate on the toilet or in the shower to remove the stent. The string is tied to a black long stent with curls at each end. Take the second Bactrim pill 12 hours later. Diet You may resume your normal diet, but you may want to start slowly an (more content not included)... Normal [facility] Comment on above: Result Comment: Elec tronically Signed By: Josh MANCINI, Kirsten Rojas\.kirsten\Date and Time Signed: 07/20/23 13:44 EST H&P Updateon 07-20-2023 H&P Update [id number] 1.00TIFF [facility] Inpatient Patient Summaryon 02-20-2024 Inpatient Patient Summary [place] [id number] [facility] Clinical Discharge Instructions PERSON INFORMATION Name: JEANNETTE PORTER PHYSICIANS Admitting Physician: Keerthi Trujillo MD Attending Physician: Keerthi Trujillo MD PCP: ADARSH CONNER MD Discharge Diagnosis: Kidney stones Comment: PATIENT EDUCATION INFORMATION Instructions: [id number] Utereroscopy,Lithotri psy, Stone Extraction, Stent Placement (CUSTOM) Medication Leaflets: Follow up: With: Address: When: Keerthi Trujillo Comments: Office to call to schedule your follow up in 6 mths. Obtain renal US in 6 wks, office to call with results MEDICATION LIST Medications to Continue with No Changes Other Medications aspirin (aspirin 81 mg oral tablet) By Mouth every day. atorvastatin By Mouth every day. cefdinir (cefdinir 300 mg Cap) cholecalciferol (Vitamin D3) 10 Microgram By Mouth every day. latanoprost ophthalmic once a day (in the evening). multivitamin with minerals (Citracal Plus Bone Density Builder) By Mouth every day. omeprazole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 Respiratory rate 16 /min Keerthi Lue [facility] 07-20-2023 13:31-0500 Diastolic blood pressure 66 mm[Hg] Keerthi Lue [facility] 07-20-2023 13:31-0500 Mean blood pressure 84 mm[Hg] Keerthi Lue [facility] 07-20-2023 13:31-0500 Systolic blood pressure 121 mm[Hg] Keerthi Lue [facility] 07-20-2023 13:27-0500 Body temperature 97.34 [degF] Keerthi Lue [facility] 07-20-2023 13:27-0500 Heart rate 72 /min Keerthi Lue [facility] 07-20-2023 13:27-0500 Mean blood pressure 80 mm[Hg] Keerthi Lue [facility] 07-20-2023 13:27-0500 Respiratory rate 16 /min Keerthi Lue [facility] 07-20-2023 13:27-0500 SaO2% (BldA) [Mass fraction] 94 % Keerthi Lue [facility] 07-20-2023 13:15-0500 Mean blood pressure 82 mm[Hg] Keerthi Lue [facility] 07-20-2023 13:15-0500 Respiratory rate 16 /min Keerthi Lue [facility] 07-20-2023 13:10-0500 Mean blood pressure 79 mm[Hg] Keerthi Lue [facility] 07-20-2023 13:10-0500 Respiratory rate 14 /min Keerthi Lue [facility] 07-20-2023 13:02-0500 Body temperature 97.16 [degF] Keerthi Lue [facility] 07-20-2023 12:55-0500 Respiratory rate 14 /min Keerthi Lue [facility] 07-20-2023 09:51-0500 Mean blood pressure 91 mm[Hg] Keerthi Lue [facility] 07-20-2023 09:49-0500 Body temperature 97.52 [degF] Keerthi Lue [facility] 07-15-2023 15:31-0500 Heart rate 65 /min Keerthi Lue [facility] 07-15-2023 15:31-0500 SaO2% (BldA) [Mass fraction] 96 % Keerthi Lue [facility] 07-15-2023 15:30-0500 Diastolic blood pressure 83 mm[Hg] Keerthi Lue [facility] 07-15-2023 15:30-0500 Mean blood pressure 100 mm[Hg] Keerthi Lue [facility] 07-15-2023 15:30-0500 Systolic blood pressure 136 mm[Hg] Keerthi Lue [facility] 06-23-2023 10:26-0500 Blood Pressure Location Keerthi Lue [facility] 06-23-2023 10:26-0500 Diastolic blood pressure 67 mm[Hg] Keerthi Lue [facility] 06-23-2023 10:26-0500 Heart rate 67 /min Keerthi Paulettee [facility] 06-23-2023 10:26-0500 Respiratory rate 16 /min Keerthi Lue [facility] 06-23-2023 10:26-0500 Systolic blood pressure 118 mm[Hg] Keerthi Lue [facility] Encounters Encounter Date Encounter Type Care Provider Facility Start: 01-19-2024 ambulatory Keerthi M. Paulettee Facility:[facility] Start: 09-13-2023 End: 09-13-2023 ambulatory [facility] Start: 07-20-2023 End: 07-20-2023 ambulatory Keerthi M. Lue Facility:[facility] Start: 07-20-2023 End: 07-20-2023 Admission to same day surgery center Keerthi MYina Caldwelle [facility] Start: 07-15-2023 End: 07-16-2023 ambulatory Keerthi M. Lue Facility:[facility] Start: 07-15-2023 End: 07-15-2023 Patient encounter procedure Keerthi M. Lue [facility] Start: 07-09-2023 End: 07-09-2023 ambulatory [facility] Start: 06-28-2023 End: 06-28-2023 ambulatory ADARSH CONNER Not Available Start: 06-23-2023 End: 06-24-2023 ambulatory Keerthi M. Lue Facility:[facility] Start: 06-23-2023 End: 06-23-2023 Patient encounter procedure Keerthi M. Lue [facility] Start: 06-15-2023 End: 06-16-2023 ambulatory Keerthi Trujillo Facility::[id number] Start: 05-26-2023 End: 05-26-2023 ambulatory ADARSH CONNER Not Available Start: 10-22-2022 End: 10-22-2022 Emergency department patient visit [facility] Start: 08-24-2022 End: 08-25-[address] ADARSH CONNER Facility: Start: 04-30-2021 End: 04-30-2021 ambulatory Sohail Grimes Facility:[facility] Procedures Date Procedure Procedure Detail Performing Clinician Start: 07-20-2023 Cystoscopy and electrohydraulic lithotripsy of calculus of bladder Keerthi Lue Start: 06-15-2023 Cystoscopic insertio n of ureteric stent Keerthi Lue Start: 01-31-2021 Extracorporeal shock wave lithotripsy of calculus of kidney Keerthi Lue Biopsy of breast Keerthi Lue Colonoscopy Keerthi Lue Cystoscopy Keerthi Lue History of tonsillectomy Desirae hy Lue Lung cyst removal Keerthi Lue Immunizations Immunization Date Immunization Notes Care Provider [facility] 04-07-2023 influenza virus vacc ine, unspecified formulation Keerthi Lue [facility] 03-19-2022 influenza virus vacc ine, unspecified formulation Keerthi Lue [facility] 12-24-2021 SARS-CoV-2 mRNA (btoexjhctdl-cesv-ixvgns e) vaccine Keerthi Lue [facility] Comment on above: Result Comment: 2023: [id number] 05-01-2021 influenza virus vacc ine, unspecified formulation Keerthi Lue [facility] 08-15-2020 SARS-CoV-2 (COVID-19 ) mRNA BNT-162b2 vax Keerthi Lue [facility] 07-29-2020 SARS-CoV-2 (COVID-19 ) mRNA-1273 vaccine Keerthi Lue [facility] 07-25-2020 SARS-CoV-2 (COVID-19 ) mRNA BNT-162m6 vax Keerthi Lue [facility] 07-01-2020 SARS-CoV-2 (COVID-19 ) mRNA-1273 vaccine Keerthi Lue [facility] 03-04-2020 influenza virus vacc ine, unspecified formulation Keerthi Lue [facility] 04-18-2019 influenza virus vacc ine, unspecified formulation Keerthi Lue [facility] 06-15-2018 zoster vaccine recombinant Keerthi Lue [facility] 01-11-2018 influenza virus vacc ine, unspecified formulation Keerthi Lue [facility] 01-11-2018 zoster vaccine recombinant Keerthi Lue [facility] 03-01-2017 pneumococcal polysaccharide vaccine, 23 valent Keerthi Lue [facility] 02-17-2017 influenza virus vacc ine, unspecified formulation Keerthi Lue [facility] 09-02-2015 pneumococcal conjuga te vaccine, 13 valent Keerthi Lue [facility] 12-31-2014 zoster vaccine, live Keerthi L ue [facility] 09-06-2014 pneumococcal conjuga te vaccine, 13 valent Keerthi Lue [facility] 04-24-2013 influenza virus vacc ine, unspecified formulation Keerthi Lue [facility] Payers Date Payer Category Payer Private Health Insurance 2020 Self-pay [id number] 1958 Medicare [id number] 1958 Private Health Insurance [id number] 1945 Unknown [id number]. [id number] 1945 Unknown [id number] [id number]. 2.1259 1945 Unknown [id number] 2..[id number]. 2.1259 1945 Unknown [id number] [id number]. 2.727 1945 Unknown [id number] [id number]. 2.727 1945 Unknown [id number] [id number]. 2.727 1945 Unknown [id number] 2.16.840.1.891200.3.579. 2.727 1945 Unknown [id number] [id number]. 2.727 Unknown [id number] Conversion Insurance [id number] Unknown [id number]. 2.531 Social History Date Type Detail [facility] Work Phone: Start: 1945 Sex Assigned At Female [facility] Start: 06-23-2023 Tobacco smoking status Never s moked tobacco (finding) [facility] Tobacco smoking status Never [facility] Sex Assigned At Female [facility] Medical Equipment Procedure Code Equipment Code Equipment Origin al Text Equipment Identifier Dates Thoracotomy PROGEL PLEURAL A IR LEAK FDA Start: 09-20-2018 CYSTOSCOPY RETROGRADE STENT INSERTION Ronnie JOHNS, Keerthi Myers 07/20/23 Unknown Ureter L FDA Start: 07-20-2023 Functional Status Date Assessment Result Facility 07-15-2023 Functional Status No [facility] 06-23-2023 Functional Status N/A [facility] Clinical Notes 06-23-2023 to 09-13-2023 Note Date & Type Note Facility 09-13-2023 Note Patient here for 2 m o follow up hyperlipidemia and echo. She still denies chest pain, SOB, palpitations, and lightheadedness/syncope. Doing very well. Review of Systems All other systems reviewed and are negative. [facility] 07-20-2023 Hospital Discharg e instructions Patient Education 07/20/2023 13:43:33 Post Op Patient Instructions - FT (Custom) (CUSTOM) 07/20/2023 13:16:12 Aumw-Euwf-jq Utereroscopy,Lithotripsy, Stone Extraction, Stent Placement (CUSTOM) [facility] [place] [place] Post-operative Instructions for Ureteroscopy, Laser Lithotripsy, Stone Extraction and Stent Placement There are no incisions or dressings to be concerned with, as the procedure was performed inside the urinary system. For 24 hours after surgery: No driving or operating machinery Do not make important decisions Do not consume alcohol, sleeping pills Stent Placement You may have a stent which spans the distance between your bladder and your kidney, allowing urine to pass through. It prevents blockage from swelling, kidney stones in ureter (tube connecting the kidney to the bladder), or scars. The presence of the stent may cause: Back or side pain, especially with urination Frequent or urgent urination Bladder pressure or pain Blood in urine You may pass stone debris or small blood clots, which is expected. Drinking plenty of water to dilute the urine may help. If there is a thread coming out of urinary channel, be careful not to accidently pull on this, as it is attached to the stent. In 4-5 days, take Bactrim antibiotic in the morning, pull off clear tape and pull on black string in a steady motion while trying to urinate on the toilet or in the shower to remove the stent. The string is tied to a black long stent with curls at each end. Take the second Bactrim pill 12 hours later. Diet You may resume your normal diet, but you may want to start slowly and avoid spicy food, caffeine, carbonated beverages and alcohol, especially if you have a stent. Your diet and fluid intake may make irritation from the stent worse. Activity You may resume your normal activities, although you should take it easy on the day of the procedure. Minimizing activity may decrease the back discomfort and irritation from the stent, if present. Medications You may resume your home medications unless instructed otherwise. Okay to restart aspirin, ibuprofen, Coumadin (warfarin) and other blood thinners after 24 hours Take your prescribed medications as directed, including your antibiotics. You may also be given a prescription for pain medicine or medicines to help with the bladder irritation from stent, if present. AZO can be purchased ohbk-rba-nypjhsd for burning with urination/urinary pain. This will cause your urine to be orange. Things to watch for which would require an Emergency Room Visit (or call 911) (This is not a complete list) Fever over 101.5 degrees, with or without chills Severe bleeding Severe drug reactions with itching, hives, rash, or severe flank pain Tenderness or swelling or the calves, chest pain, or shortness of breath Please call the office to arrange for your post-operative renal US in 6 weeks. Follow up with Dr. Trujillo in 6 months [phone] Follow Up Care 07/12/2023 12:56:00 With:Keerthi Trujillo Address:Unknown When: Unknown Comments:Office to call to schedule your follow up in 6 mths. Obtain renal US in 6 wks, office to call with results [facility] 07-20-2023 Evaluation + Plan note Extrac benigno from: Title:EU - L URS, laser lith o, stone extraction, stent exchange Author:Keerthi Trujillo MD Date:07/20/23 Impression and Plan Diagnosis Kidney stones (LTU03-LQ N20.0, Discharge, Medical). Ureteral stone (JQG54-FG N20.1, Working, Medical). Diagnosis Kidney stones (CCE00-IQ N20.0, Discharge, Medical). Extracted from: Title:Home Basic PRE Author:Home Anesthe siology ()Pola Date:07/20/23 Plan [place] [employer]esthesiologists (ASA) physical status classification: Class III. Anesthetic Preoperative Plan: Anesthesia General. Diagnostic Tests Pending * Calculi Analysis Urinary 07/20/23 [facility]02-13-2024 Note [id number] NotePatient here for surgery clearance prior to kidney stone removal. Surgery was scheduled, but cancelled due to abnormal EKG performed 2 weeks ago. Wore Holter monitor last month. She thought she was having heart problems but PCP told her everything was great . She was last seen by Dr. Paez in Jan 2021. She denies all cardiac symptoms and would really like to proceed with kidney stone removal. Review of Systems All other systems reviewed and are negative.[facility] 07-09-2023 NoteCardiology Follow Up Progress Note Chief Complaint: Perioperative risk stratification HPI: Jeannette Porter is a 78 y.o. female with a past medical history history including hypertension hyperlipidemia who presents to cardiology clinic for perioperative risk stratification prior to kidney stone removal. Patient had an abnormal EKG with sinus bradycardia and evidence of inferior infarct. She was asked to see cardiology for risk stratification. Of note: Patient had similar findings in 2020. At the time prior to surgery, she was asked to see cardiology for the same finding. Echo at that time was unremarkable, and stress test done in 2011 was reportedly normal. Today, patient states that she has been doing well. Patient adamantly denies any cardiac complaints or concerns. Patient denies any chest pain or shortness of breath. Patient denies any lower extremity edema, orthopnea, or proximal nocturnal dyspnea. No near-syncope or syncope. No dizziness or lightheadedness. Cardiology ROS: GENERAL: Denies fever, chills, night sweats, weight loss. HEENT: Denies changes in vision, photophobia, changes in hearing, epistaxis, oral bleeding. CARDIOVASCULAR: Denies chest pain, exertional dyspnea, orthopnea/PND, lower extremity edema, palpitations, lightheadedness/dizziness. RESPIRATORY: Denies SOB, coughing, wheezing GI: Denies abdominal pain, nausea/vomiting, heartburn, melena/hematochezia. RENAL: Denies dysuria, hematuria, flank pain. MSK: Denies muscle weakness/pain, arthralgias/joint pain. NEUROLOGIC: Denies LOC, weakness, numbness, headaches. SKIN: Denies abnormal rashes or bleeding. PSYCH: Denies significant anxiety, depression, sleep disturbances. Medications Current Outpatient Medications on File Prior to Visit Medication Sig Dispense Refill aspirin 81 mg EC tablet Take 81 mg by mouth in the morning. atorvastatin (Lipitor) 40 mg tablet Take 1 tablet by mouth in the morning. calcium carbonate-vitamin D3 500 mg-5 mcg (200 unit) tablet Take 1 tablet by mouth twice a day. cholecalciferol (Vitamin D-3) 50 MCG (2000 UT) tablet Take 1,000 Units by mouth in the morning. omeprazole (PriLOSEC) [address] capsule Take 40 mg by mouth in the morning. topiramate (Topamax) 25 mg tablet Take 1 tablet by mouth in the morning and at bedtime. No current facility-administered medications on file prior to visit. Allergies Nitrofurantoin monohyd/m-cryst Physical Exam VITAL SIGNS: BP 160/80 (BP Location: Left arm, Patient Position: Sitting) Pulse 65 Ht 1.549 m (5' 1 ) Wt 76.2 kg (168 lb) SpO2 98% BMI 31.74 kg/m??? Constitutional: Well developed, Well nourished, No acute distress, Non-toxic appearance. HENT: Normocephalic, Atraumatic, Bilateral external ears have normal appearance, Nose appears normal, nares are patent. Eyes: PERRLA, EOMI, Conjunctiva normal, No discharge. Neck: Normal range of motion, No tenderness, Supple, No stridor. No cervical lymphadenopathy noted. Cardiovascular: Normal heart rate, Normal rhythm, No murmurs, No rubs, No gallops. Thorax & Lungs: Normal breath sounds, No respiratory distress, No wheezing, No chest tenderness to palpation. Abdomen: Bowel sounds normal, Soft, Nontender, No masses, No pulsatile masses. Skin: Warm, Dry, No erythema, No rash. Back: No tenderness, No CVA tenderness. Extremities: Intact distal pulses, No edema, No tenderness, No cyanosis, No clubbing. Musculoskeletal: Grossly normal strength in extremities Neurologic: Alert & oriented x 3, no gross focal neurological deficits Psychiatric: Affect normal, Judgment normal, Mood normal. Impression: -Abnormal EKG -Sinus bradycardia -Perioperative restratification -HLD Plan: -Patient adamantly denies any chest pain or shortness of breath. No signs/symptoms of decompensated heart failure or ACS. Patient reports being able to complete greater than 4 METS of activity without any cardiac symptoms. Will obtain echo to rule out wall motion abnormalities -Avoid AV madelin blockade agents. No symptoms per patient -Continue Atorvastatin 40 mg daily for HLD -Optimize medical management -Aggressive risk factor modification -Plan of care discussed with patient. All questions were answered. Patient voices understanding and is agreeable with current plan. -Patient was educated on red flag symptoms. Strict return precautions were provided. Patient verbalizes understanding -Follow-up in cardiology clinic in 3 months, or sooner as needed Cindy Jalloh MD Interventional Cardiology [facility] Addendum 07/16/2023: Echocardiogram obtained and reviewed. Normal LVEF, no regional wall motion abnormalities. Patient does have a small pericardial effusion. This should not preclude her from having surgery. Given no symptoms and given ability to complete greater than 4 METS of activity, patient is moderate risk for surgery. She may proceed without additional cardiac testing (more content not included)...[facility]01-24-2024 Hospital Discharge instructions Patient Education 06/23/2023 11:12:17 Dietary Guidelines [...] about 300 mg of calcium at each meal.Foods that contain 200 500 mg of calcium a serving include: ?8 oz (237 mL) of milk, coaemkv-dslospxyeims-dfxbr milk, and calcium- fortifiedfruit juice. Calcium-fortified means that calcium has been [...] the table and allow each person to addtheir own salt to taste. Use vegetable protein, such as beans, textured vegetable protein (TVP), or tofu, instead of meat inpasta, casseroles, and soups. Meal planning Eat less salt, if told by your dietitian. To do this: ?Avoid eating processed or pre-made food. ?Avoid eating fast food. Eat less animal protein, including cheese, meat, poultry, or fish, if told by your dietitian. To dothis: ?Limit the number of times you have meat, poultry, fish, or cheese each week. Eat a diet free of meat at least 2 days a week. ?Eat only one serving each day of meat, poultry, fish, or seafood. ?When you prepare animal proteins, cut pieces into small portion sizes. For most meat and fish, oneserving is about the size of the palm [...] ?Spinach (cooked), rhubarb, beets, sweet potatoes, and Iranian chard. ?Peanuts. ?Potato chips, gibraltarian fries, and baked potatoes with skin on. ?Nuts and nut products. ?Chocolate. If you regularly take a diuretic medicine, make sure to eat at least 1 or 2 servings of fruits or vegetables that are high in potassium each day. These include: ?Avocado. ?Banana. ?[place], prune, carrot, or tomato juice. ?Baked potato. [...] magnesium, fish oil, or vitamin B6. Take svwv-kxa-gfqgqth and prescription medicines only as told by [...] Casseroles. Pizza. Lasagna. Frozen meals. Potato chips. Salvadorean fries. The items listed above may not be a complete list of foods and beverages you should limit. Contact a dietitian for more information. What foods should I avoid? Talk to your dietitian about specific foods you should avoid based on the type of kidney stones youhave and your overall health. Fruits Grapefruit. The item listed above may not be a complete list of foods and beverages you should avoid. Contact adietitian for more information. Summary Kidney stones are [...] provider. Document Revised: 08/27/2022 Document Reviewed: 08/27/2022 [employer] Patient Education 2022 [employer]. Follow Up Care 06/16/2023 11:07:45 With:Ronnie JOHNS, ANNA Kaur, URO Address: When: Unknown Comments:Schedule stone procedure [facility] evaluation + Plan note No data available for this section [facility] evaluation + Plan note Future Appointments Appointment Date:07/20/2023 12:45:00 PM Scheduled Provider: Location:[facility] Appointment Type:Surgery FT Diagnostic Tests Pending * [facility] Work Phone: Hospital Discharge instructions No data available for this section [facility] No data available for this section [facility] Summary Purpose Family History No Family History [...] and content) DATE CREATED AUTHOR 09/01/2022 [facility] DATE CREATED AUTHOR AUTHOR'S ORGANIZ ATION 01/30/2023 [facility] DATE CREATED AUTHOR AUTHOR'S ORGANIZ ATION 06/29/2023 [facility] DATE CREATED AUTHOR AUTHOR'S ORGANIZ ATION 07/28/2023 [facility] DATE CREATED AUTHOR AUTHOR'S ORGANIZ ATION 09/13/2023 [facility] Goals (unrecognized section and content) Goals may be documented in a n alternate section No data available for this section No data available for this section No data available for this section Patient Care team informatio n (unrecognized section and content) Personnel Name: ADARSH CONNER MD Address: Address: [address] [place] [address] Personnel Name: ADARSH CONNER MD Address: Address: [address] [place] [address] Personnel Name: ADARSH CONNER MD Address: Address: [address] [place] [address] FOR RECORDS PERTAINING TO PATIENTS WHO ARE [...] BE BASED ON THE PRIMARY CLINICAL RECORDS. [facility]. provides no warranty or guarantee of the accuracy or completeness of information in this document.
== END 2023-09-15 07:58 | disposition home or self-care (01) ==
LOC: US 07:57
PROVIDERS: PCP Internal Medicine; Visit Provider Urology
DX: N20.0 Calculus of kidney (principal)
CPT/HCPCS: 76775

== ENCOUNTER 2023-10-14 08:49 | Outpatient (OUT) | payer MEDICARE, OTHER, SELFPAY ==
--- NOTE | 2023-10-14 09:00 | CA_ITS ---
Patient Name: MAVIS PORTER MR#: [id number] : 1945 Exam Date: 10/14/2023 Ordering Doctor: CONNER VALERIO M.D. ECHOCARDIOGRAM REPORT PROCEDURE: CA ECHO DOPPLER COMPLETE INDICATIONS: Pericardial effusion COMPARISON: None. DESCRIPTION: COMPLETE ECHOCARDIOGRAM Real-time transthoracic echocardiography with 2D, M-mode, spectral and color flow Doppler performed. QUALITY: Technical quality was good. 60 , 160#, BSA 1.70 m2, BP 124/76 LEFT VENTRICLE: Normal chamber size. Proximal septal hypertrophy (sigmoid septum). Normal systolic function. LV EF: Normal left ventricular ejection fraction, (55%). DIASTOLIC: Diastolic function is indeterminate. ATRIAL SEPTUM: Cannot rule out possible PFO vs ASD LEFT ATRIUM: Moderately dilated. RIGHT ATRIUM: Mildly dilated. RIGHT VENTRICLE: Normal chamber size. Normal right ventricular systolic function. TRICUSPID VALVE: Normal mobility and thickness. No stenosis with mild regurgitation. No evidence of pulmonary hypertension. RVSP 29 mmHg MITRAL VALVE: Normal mobility and thickness. No evidence of mitral valve stenosis. There is no mitral annular calcification. Trivial mitral regurgitation. AORTIC VALVE: Normal trileaflet appearance. No visible sclerosis. Normal leaflet mobility. No evidence of aortic valve stenosis. Trivial aortic regurgitation. AORTIC ROOT: Normal diameter and appearance. PULMONIC VALVE: Normal thickness and mobility. No stenosis. Trivial regurgitation. PERICARDIUM: Small circumferential effusion, consistent with previous echocardiogram done 07/14/2023. IVC: Collapses with inspirations. IVC is normal in size. PLEURA: CONCLUSION: 1. Normal ventricular size and systolic function. LVEF is 55%. 2. No significant valvular dysfunction. 3. Mild to moderate biatrial dilatation. 4. Small circumferential pericardial effusion. 5. Normal right-sided pressures. 6. Color Doppler flow is seen across the interatrial septum suggestive of PFO versus ASD. Adult Echocardiography Procedure Report Left Ventricle LVEDD (3.7 - 5.6 cm): 4.19 cm LVESD (2.2 - 4.0 cm): 3.11 cm LVIVS thickness (0.6 - 1.2 cm): 1.36 cm LVPW thickness (0.5 - 1.0 cm): 0.77 cm e': 0.05 m/s E - e': 13.34 LVOT Max Gradient: 3.48 mm[Hg] LVOT Area (cm2): 0.93 m/s Peak Velocity (LVOT): 0.93 m/s Mean Velocity (LVOT): 0.59 m/s LVOT Diameter 2.08 cm Left Atrium LA Volume Index (2D A2C): 30.01 ml/m2 Left Atrium Systolic Dimension: 4.12 cm Mitral Valve MV E to A Ratio: 0.73 Mitral Valve A-Wave Peak Velocity: 0.93 m/s Mitral Valve E-Wave Peak Velocity: 0.68 m/s Right Ventricle Aorta AO Root Diam: 3.50 cm Ascending Ao Diam: 2.86 cm Aortic Valve AoV Area (Peak Esdras): 2.66 cm2, 2.66 cm2 AoV Area (VTI): 2.68 cm2, 2.68 cm2 Peak Velocity(Antegrade Flow): 1.19 m/s Peak Gradient(Antegrade Flow): 5.66 mm[Hg] Mean Velocity(Antegrade Flow): 0.79 m/s Mean Gradient(Antegrade Flow): 2.88 mm[Hg] Velocity Time Integral: 30.18 cm Tricuspid Valve Peak Velocity (Regurgitant Flow): 2.24 m/s, 2.49 m/s, 2.57 m/s Pulmonic Valve Mean Gradient: 1.41 mm[Hg] Mean Velocity: 0.56 m/s Peak Velocity: 0.82 m/s, 0.87 m/s Peak Gradient: 2.67 mm[Hg], 3.06 mm[Hg] Right Atrium Right Atrium Systolic Pressure: 39.77 ml, 39.77 ml Dictated by: Guzman Swenson M.D. on 10/14/2023 at 17:33 Approved by: Guzman Swenson M.D. on 10/14/2023 at 17:37
--- OUTSIDE RECORDS SUMMARY | 2023-10-14 09:11 | XMS_ITS | CCD ---
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 Intensive Anticoagulation? 2.0 ? 3.0 Conventional Range 3.0 ? 4.5 Performed By: #### 1 [id number], [id number], [id number], [id number] ####[facility] [address] [place] [address] PT Coag (PPP) [Time] 11.9 second(s) Normal 9.4-12.5 [facility] Comment on above: Result Comment: 15 [...] ranges were obtained from a study by toña Navarrete prepared from 1437 samples obtained at 7 different centers using the same coagulation reagent and instrumentation as [facility]. Currently there are no coagulation studies available worldwide for children to 14 days, and no normal ranges. Performed By: #### 1 [id number], [id number], [id number], [id number] ####[address] [place] [address] UA With Cult Reflexon 2023 Bacteria LM Ql (Urine sed) 3+ /HPF Abnormal Trace [facility] Comment on above: Performed By: #### 1 [id number], [id number] ####[address] [address] Bilirubin Ql (U) Negative Normal Negative [facility] Comment on above: Performed By: #### 1 [id number], [id number] ####[id number] Clarity (U) SL CLOUDY Invalid Interpretation Code [facility] Comment on above: Performed By: #### 1 [id number], [id number] ####[address] [address] Color (U) YELLOW Normal Yellow [facility] Comment on above: Performed By: #### 1 [id number], [id number] ####[address] [address] Epithelial cells.squamous LM.HPF (Urine sed) [#/Area] 0-2 Normal 0-[address] [facility] Comment on above: Performed By: #### 1 [id number], [id number] ####[address] [address] Glucose Test strip (U) [Mass/Vol] Negative Normal Negative [facility] Comment on above: Performed By: #### 1 [id number], 1161500 ####[address] [address] Hemoglobin Ql (U) 3+ Abnormal Negative [facility] Comment on above: Performed By: #### 1 [id number], 2702754 ####[address] [address] Ketones (U) [Mass/Vol] Negative Normal Negative [facility] Comment on above: Performed By: #### 1 7880083, 4789300 ####[address] [address] [place].plasma/[place] .RBC (Bld) [Mass ratio] >75 Abnormal 0-3 [facility] Comment on above: Performed By: #### 1 [id number], 0681211 ####[place] [address] [id number] Nitrite Ql (U) Positive Abnormal Negative [facility] Comment on above: Performed By: #### 1 4438287, 7118779 ####[place] [address] [address] pH (U) 6.0 [pH] Invalid Interpretation Code 5.0-9.0 [facility] Comment on above: Performed By: #### 1 [id number], [id number] ####[id number] Protein (U) [Mass/Vol] 1+ Abnormal Negative [facility] Comment on above: Performed By: #### 1 [id number], 9055064 ####[id number] Specific gravity (U) [Rel density] 1.025 Invalid Interpretation Code 1.005-1.030 [facility] Comment on above: Performed By: #### 1 [id number], 1003410 ####[place] [id number] Type of Urine collection method Clean Catch Normal [facility] Comment on above: Performed By: #### 1 [id number], [id number] ####[address] [address] Urobilinogen Qn (U) 0.2 {Starr'U}/dL Normal 0.0-1.0 [facility] Comment on above: Performed By: #### 1 [id number], 8340284 ####[address] [address] WBC Auto Ql (U) 2+ Abnormal Negative [facility] Comment on above: Performed By: #### 1 [id number], 5784893 ####[facility] [address] [place] [address] WBC LM.HPF (Urine sed) [#/Area] /[HPF] Abnormal 0-5 [facility] Comment on above: Performed By: #### 1 [id number], [id number] ####[facility] [address] [place] [address] URINALYSISOrdered By: Jairon Faye on 07-15-2023 Bacteria [...] PM) Normal Negative [facility] UA Auto SS [place].plasma/[place] .RBC (Bld) [Mass ratio] >75 /HPF Invalid [...] PM) Invalid Interpretation Code 1.005 - 1.030 [facility] UA Auto SS UA Spec Desc Clean Catch (07/15/23 4:18 PM) Normal [facility] UA Auto SS Urobilinogen Qn (U) 0.0751004 {Starr'U}/dL Normal 0.0 - 1.0 EU/dL [facility] UA Auto SS WBC Auto Ql (U) 2+ *ABN* (07/15/23 4:18 PM) Invalid Interpretation Code Negative [facility] UA Auto SS WBC LM.HPF (Urine sed) [#/Area] /[HPF] Invalid Interpretation Code 0-5/HPF [facility] UA Auto SS XR Chest 2 Viewson [...] mGy = na DAP = na Normal [facility] eGFRon 07-15-2023 eGFR 58 mL/min/1.73 m2 Low >=59 [facility] Comment on above: Order Comment: Order added by Discern Expert. Performed By: #### 1 [id number], 0333471, [id number], [id number] ####[facility] [address] [place] [address] Outside Recordson 07-13-2023 Outside Records [id number]# 1.00TIFF Normal [facility] Office Visiton 07-09-2023 Follow-up visit [id number] Jeannette Porter 1945 F Date Provider Department Center 07/09/2023 3848-CONNER JALLOH CARD [facility] No family history on file Level of Service:44858 [place] OFFICE/OUTPATIENT ESTABLISHED MOD MDM 30 MIN Normal [facility] Lab Reportson 06-30-2023 Lab Reports [id number]#1 .00TIFF Normal [facility] ECG 12-Leadon 06-29-2023 ECG 12-Lead [id number]#1 .00TIFF Normal [facility] Consent for Procedure/Surger yon 06-25-2023 Consent for Procedure/Surgery [id number]# 1.00TIFF Normal [facility] Lab Reportson 06-24-2023 Lab Reports [id number]#1 .00TIFF Normal [facility] Screenson 06-24-2023 Screens [id number]# 1.00TIFF Normal [facility] Ambulatory Visit Summaryon 0 06-23-2023 Ambulatory Visit Summary JEANNETTE PORTER :1945 Visit Date:06/23/2023 Ambulatory Visit Instructions Your Diagnosis Kidney stone Your Care Team Attending Physician - Ronnie JOHNS, Keerthi Myers Primary Care Physician - DALILA JOHNS, ADARSH Hopkins This Is Your Medications List Contact prescribing [...] Following Appointments Follow Up with Ronnie JOHNS, ANNA Kaur, URO When: Comments: Schedule stone procedure Where: [...] person to (more content not included)... Normal [facility] Patient Educationon 06-23-19 Patient Education Nephrology [...] Spinach (cooked), rhubarb, beets, sweet potatoes, and Beninese chard. ? Peanuts. ? Potato chips, nicaraguan fries, and baked potatoes with skin on. ? Nuts and nut products. ? Chocolate. ? If you regularly take a diuretic medicine, make sure to eat at least 1 or 2 servings of fruits or vegetables that are high in potassium each day. These include: ? Avocado. ? Banana. ? Nadeau, prune, carrot, or tomato juice. ? Baked [...] fish oil, or vitamin B6. ? Take wxuj-vhx-utlpgvz and prescription medicines only as told by your health care provider. These include supplements. What foods sh (more content not included)... Normal [facility] Urology Office/Clinic Noteon 06-23-2023 Urology Office/Clinic Note [...] Consider metabolic (more content not included)... Normal [facility] Comment on above: Result Comment: Elec tronically Signed By: Ronnie JOHNS, Keerthi Lezama.br\Date and Time Signed: 06/23/23 20:21 EST RAD - MISCon 06-17-2023 RAD - MISC [id number]#1 .00TIFF [facility] Consultation Noteon 06-16-19 Consultation Note [id number]#1 .00TIFF [facility] Operative Reporton Operative Report [id number]#1 .00TIFF [facility] MG MAMM SCREEN 3D MARCOS CADon 08-24-2022 MG MAMM SCREEN 3D MARCOS CAD Patient: JEANNETTE PORTER Exam Date: 08/24/2022 : 1945 Gender:F Ordering : DR ADARSH CONNER M.D. Admission #: [id number] Family : Order #: [id number] CLICK HERE TO VIEW EXAM RADIOLOGY REPORT [...] with mouth cancer at age 71. LOCATION: [facility] BREAST COMPOSITION: Heterogeneously dense,which may obscure small [...] Dumont M.D. on 08/24/2022 at 12:10 Normal [facility] Vital Signs Date Time Vital Sign Value Performing Clinician Facility 07-20-2023 14:37-0500 Diastolic blood pressure 62 mm[Hg] Keerthi Lue [facility] 07-20-2023 14:37-0500 Systolic blood pressure 136 mm[Hg] Keerthi Lue [facility] 07-20-2023 14:36-0500 Heart rate 83 /min Keerthi Lue [facility] 07-20-2023 14:36-0500 SaO2% (BldA) [Mass fraction] 96 % Keerthi Lue [facility] 07-20-2023 14:36-0500 Diastolic blood pressure 80 mm[Hg] Keerthi Lue [facility] 07-20-2023 14:36-0500 Mean blood pressure 104 mm[Hg] Keerthi Lue [facility] 07-20-2023 14:36-0500 Systolic blood pressure 152 mm[Hg] Keerthi Lue [facility] 07-20-2023 14:35-0500 Respiratory rate 16 /min Keerthi Lue [facility] 07-20-2023 13:33-0500 Heart rate 77 /min Keerthi Lue [facility] 07-20-2023 13:33-0500 SaO2% (BldA) [Mass fraction] 93 % Keerthi Lue [facility] 07-20-2023 13:32-0500 Respiratory rate 16 /min Keerthi Lue [facility] 07-20-2023 13:31-0500 Diastolic blood pressure 66 mm[Hg] Keerthi Lue [facility] 07-20-2023 13:31-0500 Mean blood pressure 84 mm[Hg] Keerthi Lue [facility] 07-20-2023 13:31-0500 Systolic blood pressure 121 mm[Hg] Keerthi Lue [facility] 07-20-2023 13:27-0500 Body temperature 97.34 [degF] Keerthi Lue [facility] 07-20-2023 13:27-0500 Heart rate 72 /min Keerthi Lue [facility] 07-20-2023 13:27-0500 Mean blood pressure 80 mm[Hg] Keerthi Lue [facility] 07-20-2023 13:27-0500 Respiratory rate 16 /min Keerthi Lue [facility] 07-20-2023 13:27-0500 SaO2% (BldA) [Mass fraction] 94 % Keerthi Lue [facility] 07-20-2023 13:15-0500 Mean blood pressure 82 mm[Hg] Keerthi Lue [facility] 07-20-2023 13:15-0500 Respiratory rate 16 /min Keerthi Lue [facility] 07-20-2023 13:10-0500 Mean blood pressure 79 mm[Hg] Keerthi Lue [facility] 07-20-2023 13:10-0500 Respiratory rate 14 /min Keerthi Lue [facility] 07-20-2023 13:02-0500 Body temperature 97.16 [degF] Keerthi Lue [facility] 07-20-2023 12:55-0500 Respiratory rate 14 /min Keerthi Lue [facility] 07-20-2023 09:51-0500 Mean blood pressure 91 mm[Hg] Keerthi Lue [facility] 07-20-2023 09:49-0500 Body temperature 97.52 [degF] Keerthi Lue [facility] 07-15-2023 15:31-0500 Heart rate 65 /min Keerthi Lue [facility] 07-15-2023 15:31-0500 SaO2% (BldA) [Mass fraction] 96 % Keerthi Lue [facility] 07-15-2023 15:30-0500 Diastolic blood pressure 83 mm[Hg] Keerthi Lue [facility] 07-15-2023 15:30-0500 Mean blood pressure 100 mm[Hg] Keerthi Lue [facility] 07-15-2023 15:30-0500 Systolic blood pressure 136 mm[Hg] Keerthi Lue [facility] 06-23-2023 10:26-0500 Blood Pressure Location Keerthi Lue [facility] 06-23-2023 10:26-0500 Diastolic blood pressure 67 mm[Hg] Keerthi Lue [facility] 06-23-2023 10:26-0500 Heart rate 67 /min Keerthi Lue [facility] 06-23-2023 10:26-0500 Respiratory rate 16 /min Keerthi Lue [facility] 06-23-2023 10:26-0500 Systolic blood pressure 118 mm[Hg] Keerthi Lue [facility] Encounters Encounter Date Encounter Type Care Provider Facility Start: 01-19-2024 ambulatory Keerthi M. Lue Facility:[facility] Start: 09-13-2023 End: 09-13-2023 ambulatory [facility] Start: 07-20-2023 End: 07-20-2023 ambulatory Keerthi M. Lue Facility:[facility] Start: 07-20-2023 End: 07-20-2023 Admission to same day surgery center Keerthi M. Lue [facility] Start: 07-15-2023 End: 07-16-2023 ambulatory Keerthi M. Lue Facility:[facility] Start: 07-15-2023 End: 07-15-2023 Patient encounter procedure Keerthi M. Lue [facility] Start: 07-09-2023 End: 07-09-2023 ambulatory [facility] Start: 06-28-2023 End: 06-28-2023 ambulatory ADARSH CONNER Not Available Start: 06-23-2023 End: 06-24-2023 ambulatory [facility]illo [facility] Start: 06-23-2023 End: 06-23-2023 Patient encounter procedure Keerthi Trujillo [facility] Start: 06-15-2023 End: 06-16-2023 ambulatory Keerthi Trujillo Facility:CD:[id number] Start: 05-26-2023 End: 05-26-2023 ambulatory ADARSH CONNER Not Available Start: 10-22-2022 End: 10-22-2022 Emergency department patient visit [facility] Start: 08-24-2022 End: 08-25-[address] ADARSH CONNER Facility:[facility] Start: 04-30-2021 End: 04-30-2021 ambulatory Sohail Grimes Facility:[facility] Procedures Date Procedure Procedure Detail Performing [...] Immunization Date Immunization Notes Care Provider Lizzeth cility 04-07-2023 influenza virus vacc ine, unspecified formulation Keerthi Lue [facility] 03-19-2022 influenza virus vacc ine, unspecified formulation Keerthi Lue [facility] 12-24-2021 SARS-CoV-2 mRNA (hvkbblwlvle-tckg-ggyjwy e) vaccine Keerthi Lue [facility] Comment on above: Result Comment: 2023: [id number] 05-01-2021 influenza virus vacc ine, unspecified formulation Keerthi Lue [facility] 08-15-2020 SARS-CoV-2 (COVID-19 ) mRNA BNT-162b2 vax Keerthi Lue [facility] 07-29-2020 SARS-CoV-2 (COVID-19 ) mRNA-1273 vaccine Keerthi Lue [facility] 07-25-2020 SARS-CoV-2 (COVID-19 ) mRNA BNT-162b2 vax Keerthi Lue [facility] 07-01-2020 SARS-CoV-2 (COVID-19 ) mRNA-1273 vaccine Keerthi Lue [facility] 03-04-2020 influenza virus vacc ine, unspecified formulation Keerthi Lue [facility] 04-18-2019 influenza virus vacc ine, unspecified formulation Keerthi Lue [facility] 06-15-2018 zoster vaccine recombinant Keerthi Lue [facility] 01-11-2018 influenza virus vacc ine, unspecified formulation Keerthi Lue [facility] 01-11-2018 zoster vaccine recombinant Keerthi Lue [facility] 03-01-2017 pneumococcal polysaccharide vaccine, 23 valent Keerthi Lue [facility] 02-17-2017 influenza virus vacc ine, unspecified formulation Keerthi Lue [facility] 09-02-2015 pneumococcal conjuga te vaccine, 13 valent Keerthi Lue [facility] 12-31-2014 zoster vaccine, live Keerthi L ue [facility] 09-06-2014 pneumococcal conjuga te vaccine, 13 valent Keerthi Lue [facility] 04-24-2013 influenza virus vacc ine, unspecified formulation Keerthi Lue [facility] Payers Date Payer Category Payer Private Health Insurance 2020 Self-pay [id number] 1958 Medicare [id number] 1958 Private Health Insurance [id number] 1945 Unknown [id number]. 2.593 1945 Unknown [id number]. 2.1259 1945 Unknown [id number] [id number]. 2.1259 1945 Unknown [id number] 2.16.840.1.833367.3.579. 2.727 1945 Unknown [id number] 2.16.840.1.544155.3.579. 2.727 1945 Unknown [id number] 2.16.840.1.751038.3.579. 2.727 1945 Unknown [id number] 2.16.840.1.680106.3.579. 2.727 1945 Unknown [id number] 2.16.840.1.575279.3.579. 2.727 Unknown [id number] Conversion Insurance [id number] Unknown [id number] [id number]. 2.531 Social History Date Type Detail Facility Tobacco smoking stat [facility] Unknown if ever smoked [facility] Work Phone: Start: 1945 Sex Assigned At Female [facility] Start: 06-23-2023 Tobacco smoking status Never s moked tobacco (finding) [facility] Tobacco smoking status Never [facility] Sex Assigned At Female [facility] Medical Equipment Procedure Code Equipment Code Equipment Origin al Text Equipment Identifier Dates Thoracotomy PROGEL PLEURAL A IR LEAK FDA Start: 09-20-2018 CYSTOSCOPY RETROGRADE STENT INSERTION Ronnie JOHNS, Keerthi Myers 07/20/23 Unknown Ureter L FDA Start: 07-20-2023 Functional Status Date Assessment Result Facility 07-15-2023 Functional Status No [facility] 06-23-2023 Functional Status N/A [facility] Clinical Notes 06-23-2023 to 09-13-2023 Note Date & Type Note Facility 09-13-2023 Note Patient here for 2 m o follow up hyperlipidemia and echo. She still denies chest pain, SOB, palpitations, and lightheadedness/syncope. Doing very well. Review of Systems All other systems reviewed and are negative. [facility] 07-20-2023 Hospital Discharg e instructions Patient Education 07/20/2023 13:43:33 Post Op Patient Instructions - FT (Custom) (CUSTOM) 07/20/2023 13:16:12 Pdor-Xezi-cq Utereroscopy,Lithotripsy, Stone Extraction, Stent Placement (CUSTOM) [facility] [place], [place] Post-operative Instructions for Ureteroscopy, Laser Lithotripsy, [...] stent, if present. AZO can be purchased wern-zqp-pwtwqrf for burning with urination/urinary pain. This will [...] up with Dr. Trujillo in 6 months [phone] Follow Up Care 07/12/2023 12:56:00 With:Keerthi Trujillo Address:Unknown When: Unknown Comments:Office to call to schedule your follow up in 6 mths. Obtain renal US in 6 wks, office to call with results [facility] 07-20-2023 Evaluation + Plan note Extrac benigno from: Title:EU - L URS, laser lith o, stone extraction, stent exchange Author:Keerthi Trujillo MD Date:07/20/23 Impression and Plan Diagnosis Kidney stones (ZSV43-GT N20.0, Discharge, Medical). Ureteral stone ([id number]-GG N20.1, Working, Medical). Diagnosis Kidney stones ([id number] N20.0, Discharge, Medical). Extracted from: Title:Home Basic PRE Author:Home Anesthe siology ()Pola Date:07/20/23 Plan [place] [employer] Anesthesiologists (ASA) physical status classification: Class III. Anesthetic Preoperative Plan: Anesthesia General. Diagnostic Tests Pending * Calculi Analysis Urinary 07/20/23 [facility]02-13-2024 Note [id number]#1.00[facility]23 NotePatient here for surgery clearance prior [...] Systems All other systems reviewed and are negative.[facility] 07-09-2023 NoteCardiology Follow Up Progress [...] in 3 months, or sooner as needed Conner Jalloh MD Interventional Cardiology [facility] Addendum 07/16/2023: Echocardiogram obtained and reviewed. Normal LVEF, no regional wall motion abnormalities. Patient does have a small pericardial effusion. This should not preclude her from having surgery. Given no symptoms and given ability to complete greater than 4 METS of activity, patient is moderate risk for surgery. She may proceed without additional cardiac testing (more content not included)...[facility]01-24-2024 Hospital Discharge instructions Patient Education [...] include: ?8 oz (237 mL) of milk, xntdxfj-uphenztyxwyw-hxknq milk, and calcium- fortifiedfruit juice. Calcium-fortified means [...] ?Spinach (cooked), rhubarb, beets, sweet potatoes, and Beninese chard. ?Peanuts. ?Potato chips, nicaraguan fries, and baked potatoes with skin on. ?Nuts and nut products. ?Chocolate. If you regularly take a diuretic medicine, make sure to eat at least 1 or 2 servings of fruits or vegetables that are high in potassium each day. These include: ?Avocado. ?Banana. ?Nadeau, prune, carrot, or tomato juice. ?Baked potato. [...] magnesium, fish oil, or vitamin B6. Take bpai-jtu-gljvjhs and prescription medicines only as told by [...] Casseroles. Pizza. Lasagna. Frozen meals. Potato chips. Andorran fries. The items listed above may not [...] provider. Document Revised: 08/27/2022 Document Reviewed: 08/27/2022 [employer] Patient Education 2022 [employer]. Follow Up Care 06/16/2023 11:07:45 With:Ronnie JOHNS, ANNA Kaur, URO Address: When: Unknown Comments:Schedule stone procedure [facility] evaluation + Plan note No data available for this section [facility] evaluation + Plan note Future Appointments Appointment Date:07/20/2023 12:45:00 PM Scheduled Provider: Location:[facility] Appointment Type:Surgery FT Diagnostic Tests Pending * Urine Culture [facility]23 [facility] information available [facility] Work Phone: Hospital Discharge instructions No data available for this section [facility] No data available for this section [facility] Summary Purpose Family History No Family [...] and content) DATE CREATED AUTHOR 09/01/2022 [facility] DATE CREATED AUTHOR AUTHOR'S ORGANIZ ATION 01/30/2023 [facility] DATE CREATED AUTHOR AUTHOR'S ORGANIZ ATION 06/29/2023 [facility] EPIC DATE CREATED AUTHOR AUTHOR'S ORGANIZ ATION 09/17/2023 [facility] DATE CREATED AUTHOR AUTHOR'S ORGANIZ ATION 09/17/2023 [facility] Goals (unrecognized section and content) Goals may be documented in a n alternate section No data available for this section No data available for this section No data available for this section Patient Care team informatio n (unrecognized section and content) Personnel Name: ADARSH CONNER MD Address: Address: [address] [place] [address] Personnel Name: ADARSH CONNER MD Address: Address: [address] [place] [address] Personnel Name: ADARSH CONNER MD Address: Address: [address] [place] [address] FOR RECORDS PERTAINING TO PATIENTS WHO ARE [...] BE BASED ON THE PRIMARY CLINICAL RECORDS. [employer] [facility]. provides no warranty or guarantee of the accuracy or completeness of information in this document.
== END 2023-10-14 08:50 | disposition home or self-care (01) ==
LOC: CARD 08:49
PROVIDERS: PCP Internal Medicine; Visit Provider Internal Medicine Cardiovascular Disease
DX: I31.39 Other pericardial effusion (noninflammatory) (principal)
CPT/HCPCS: 93306

== ENCOUNTER 2023-12-08 09:14 | Outpatient (OUT) | payer MEDICARE, OTHER, SELFPAY ==
--- NOTE | 2023-12-08 09:17 | MM_ITS ---
Patient Name: MAVIS PORTER MR#: [id number] : 1945 Exam Date: 12/08/2023 Ordering Doctor: DR LAUREN CONNER M.D. RADIOLOGY REPORT PROCEDURE: MM TOMOSYNTHESIS SCREENING BI COMPARISON: MG MAMM SCREEN 3D MARCOS CAD, 08/24/2022. MG MAMM MARCOS DIAG W CAD, 06/24/2020. INDICATIONS: Screening Calculator Name NCI Breast Cancer Risk Assessment Tool 5 Year Breast Cancer Risk 3.30% Lifetime Breast Cancer Risk 6.20% Personal Breast Cancer No Personal Ovarian Cancer No Treatments None Family Cancers Brother with mouth cancer at age 70. LOCATION: [facility] BREAST COMPOSITION: The breasts are heterogeneously dense,which may obscure small masses. FINDINGS: DIAGNOSTIC CATEGORY 2--BENIGN FINDING. NO CHANGE FROM COMPARISON. Scattered benign-appearing nodules are present. Scattered benign-appearing calcifications are present. Scattered benign-appearing lymph nodes are present. RIGHT BREAST: No significant suspicious finding. LEFT BREAST: No significant suspicious finding. RECOMMENDATIONS: ROUTINE MAMMOGRAM AND CLINICAL EVALUATION IN 12 MONTHS. PLEASE NOTE: A NORMAL MAMMOGRAM DOES NOT EXCLUDE THE POSSIBILITY OF BREAST CANCER. A CLINICALLY SUSPICIOUS PALPABLE LUMP SHOULD BE BIOPSIED. Dictated by: Federico Tate MD on 12/08/2023 at 09:49 Approved by: Federico Tate MD on 12/08/2023 at 09:50
== END 2023-12-08 09:15 | disposition home or self-care (01) ==
LOC: MAMMO 09:15
PROVIDERS: PCP Internal Medicine; Visit Provider Internal Medicine
DX: Z12.31 Encounter for screening mammogram for malignant neoplasm of breast (principal); Z80.9 Family history of malignant neoplasm, unspecified
CPT/HCPCS: 77063; 77067

== ENCOUNTER 2023-12-21 09:13 | Outpatient (OUT) | payer MEDICARE, OTHER, SELFPAY ==
--- NOTE | 2023-12-21 09:16 | US_ITS ---
The [address] [address] Patient Name: MAVIS PORTER MRN: [id number] date: 1945 Sex: F Assigned Patient Location: Current Patient Location: US Accession/Order Number: [id number] Exam Date: 12/21/2023 09:45 Report Date: 12/22/2023 06:43 At the request of: RHINA BAPTISTE Procedure: US renal BI EXAMINATION: US renal BI HISTORY: Kidney Stone COMPARISON: Ultrasound renal bilateral 09/15/2023 TECHNIQUE: Ultrasound examination was performed of the kidneys and urinary bladder. FINDINGS: RIGHT KIDNEY: Contain several nonobstructing stones, largest is 6 mm. Slight dilation of several calyces; no abnormal dilation of renal pelvis. Mild cortical thinning. Color Doppler demonstrates blood flow within the kidney. Kidney: 11.2 x 5.0 x 4.7 cm. LEFT KIDNEY: Contain several nonobstructing stones, largest is 7 mm. Slightly dilated appearance of several calyces; similar to right. No abnormal dilation of renal pelvis. Mild cortical thinning. Color Doppler demonstrates blood flow. Kidney: 9.9 x 5.2 x 4.6 cm BLADDER: No visible wall thickening, mass, or calculi. US/US renal BI IMPRESSION: 1. Bilateral nonobstructing nephrolithiasis. 2. Mild cortical atrophy bilaterally; likely age related. Electronically authenticated by: KYARA TALBOT Date: 12/22/2023 06:43
--- NOTE | 2023-12-21 09:25 | XR_ITS ---
The [address] [address] Patient Name: MAVIS PORTER MRN: [id number] date: 1945 Sex: F Assigned Patient Location: Current Patient Location: Accession/Order Number: [id number] Exam Date: 12/21/2023 09:20 Report Date: 12/22/2023 06:11 At the request of: RHINA BAPTISTE Procedure: XR abdomen 1V EXAMINATION: XR abdomen 1V HISTORY: Kidney Stone COMPARISON: XR abdomen 04/06/2021 FINDINGS: KIDNEY/URETER - RIGHT: No visible renal or ureteral calcifications. KIDNEY/URETER - LEFT: No visible renal or ureteral calcifications. PELVIS: No visible ureteral stones. Stable pelvic calcifications favoring phleboliths and possible granuloma. BOWEL: No abnormal dilation or deviation. 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 OTHER: Negative. No abnormal gaseous collections. XR/XR abdomen 1V IMPRESSION: 1. No appreciable urinary tract calculi. Electronically authenticated by: KYARA TALBOT Date: 12/22/2023 06:11
--- OUTSIDE RECORDS SUMMARY | 2023-12-21 09:35 | XMS_ITS | CCD ---
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 Anticoagulation therapy suggested INR?s ?Less Intensive Anticoagulation? 2.0 ? 3.0 Conventional Range 3.0 ? 4.5 Performed By: #### 1 [id number], [id number], [id number], [id number] ####[facility] [address] [place] [address] PT Coag (PPP) [Time] 11.9 second(s) Normal 9.4-12.5 [facility] Comment on above: Result Comment: 15 [...] the same coagulation reagent and instrumentation as [facility]. Currently there are no coagulation studies available worldwide for children to 14 days, and no normal ranges. Performed By: #### 1 [id number], [id number], [id number], [id number] ####[address] [place] [address] UA With Cult Reflexon 2023 Bacteria LM Ql (Urine sed) 3+ /HPF Abnormal Trace [facility] Comment on above: Performed By: #### 1 [id number], [id number] ####[address] [address] Bilirubin Ql (U) Negative Normal Negative [facility] Comment on above: Performed By: #### 1 [id number], [id number] ####[address] [address] Clarity (U) SL CLOUDY Invalid Interpretation Code [facility] Comment on above: Performed By: #### 1 [id number], [id number] ####[address] [address] Color (U) YELLOW Normal Yellow [facility] Comment on above: Performed By: #### 1 [id number], [id number] ####[address] [address] Epithelial cells.squamous LM.HPF (Urine sed) [#/Area] 0-2 Normal 0-2 [facility] Comment on above: Performed By: #### 1 [id number], [id number] ####[facility] [address] [place] [address] Glucose Test strip (U) [Mass/Vol] Negative Normal Negative [facility] Comment on above: Performed By: #### 1 [id number], [id number] ####[address] [address] Hemoglobin Ql (U) 3+ Abnormal Negative [facility] Comment on above: Performed By: #### 1 [id number], [id number] ####[address] [address] Ketones (U) [Mass/Vol] Negative Normal Negative [facility] Comment on above: Performed By: #### 1 [id number], [id number] ####[address] [address] [place].plasma/[place] .RBC (Bld) [Mass ratio] >75 Abnormal 0-3 [facility] Comment on above: Performed By: #### 1 [id number], [id number] ####[facility] [address] [place] [address] Nitrite Ql (U) Positive Abnormal Negative [facility] Comment on above: Performed By: #### 1 [id number], [id number] ####[address] [address] pH (U) 6.0 [pH] Invalid Interpretation Code 5.0-9.0 [facility] Comment on above: Performed By: #### 1 [id number], [id number] ####[address] [address] Protein (U) [Mass/Vol] 1+ Abnormal Negative [facility] Comment on above: Performed By: #### 1 2000969, 7376025 ####[address] [address] Specific gravity (U) [Rel density] 1.025 Invalid Interpretation Code 1.005-1.030 [facility] Comment on above: Performed By: #### 1 [id number], 8106196 ####[place] [address] Type of Urine collection method Clean Catch Normal [facility] Comment on above: Performed By: #### 1 [id number], 4383074 ####[place] [address] Urobilinogen Qn (U) 0.2 {Starr'U}/dL Normal 0.0-1.0 [facility] Comment on above: Performed By: #### 1 [id number], 8786690 ####[place] [address] WBC Auto Ql (U) 2+ Abnormal Negative [facility] Comment on above: Performed By: #### 1 [id number], 7233808 ####[place] [address] WBC LM.HPF (Urine sed) [#/Area] /[HPF] Abnormal 0-5 [facility] Comment on above: Performed By: #### 1 [id number], [id number] ####[place] [address] URINALYSISOrdered By: Jairon Faye on 07-15-2023 Bacteria LM Ql (Urine sed) 3+ /HPF Invalid Interpretation Code Trace/HPF [facility] UA Auto SS Bilirubin Ql (U) Negative (07/15/23 4:18 PM) Normal Negative [facility] UA Auto SS Clarity (U) SL CLOUDY Invalid Interpretation Code [facility] UA Auto SS Color (U) Yellow (07/15/23 4:18 PM) Normal Yellow [facility] UA Auto SS Epithelial cells.squamous LM.HPF (Urine sed) [#/Area] 0-2 /HPF Normal 0-2/HPF [facility] UA Aut o SS Glucose Test strip (U) [Mass/Vol] Negative (07/15/23 4:18 PM) Normal Negative [facility] UA Auto SS Hemoglobin Ql (U) 3+ *ABN* (07/15/23 4:18 PM) Invalid Interpretation Code Negative [facility] UA Auto SS Ketones (U) [Mass/Vol] Negative (07/15/23 4:18 PM) Normal Negative [facility] UA Auto SS [place].plasma/[place] .RBC (Bld) [Mass ratio] >75 /HPF Invalid [...] [facility] UA Auto SS Urobilinogen Qn (U) 0.2507765 {Starr'U}/dL Normal 0.0 - 1.0 EU/dL [facility] [...] mGy = na DAP = na Normal [facility] eGFRon 07-15-2023 eGFR 58 mL/min/1.73 m2 Low >=59 [facility] Comment on above: Order Comment: Order added by Discern Expert. Performed By: #### 1 [id number], 6375210, [id number], [id number] ####[facility] [address] [place] [address] Outside Recordson 07-13-2023 Outside Records [id number]# 1.00TIFF Normal [facility] Office Visiton 07-09-2023 Follow-up visit [id number] Jeannette Porter 1945 F Date Provider Department Center 07/09/2023 3848CONNER JALLOH CARD [facility] No family history on file Level of Service:19346 NE OFFICE/OUTPATIENT ESTABLISHED MOD MDM 30 MIN Normal [facility] Lab Reportson 06-30-2023 Lab Reports [id number]#1 .00TIFF Normal [facility] ECG 12-Leadon 06-29-2023 ECG 12-Lead [id number]#1 .00TIFF Normal [facility] Consent for Procedure/Surger yon 06-25-2023 Consent for Procedure/Surgery [id number]# 1.00TIFF Normal [facility] Lab Reportson 06-24-2023 Lab Reports [id number]#1 .00TIFF Normal [facility] Screenson 06-24-2023 Screens [id number]# 1.00TIFF Normal [facility] Ambulatory Visit Summaryon 0 06-23-2023 Ambulatory [...] person to (more content not included)... Normal [facility] Patient Educationon 06-23-19 Patient Education Nephrology [...] Spinach (cooked), rhubarb, beets, sweet potatoes, and Dominican chard. ? Peanuts. ? Potato chips, malaysian fries, and baked potatoes with skin on. ? Nuts and nut products. ? Chocolate. ? If you regularly take a diuretic medicine, make sure to eat at least 1 or 2 servings of fruits or vegetables that are high in potassium each day. These include: ? Avocado. ? Banana. ? [place], prune, carrot, or tomato juice. ? Baked [...] fish oil, or vitamin B6. ? Take nivb-cjo-lgijwoo and prescription medicines only as told by your health care provider. These include supplements. What foods sh (more content not included)... Normal [facility] Urology Office/Clinic Noteon 06-23-2023 Urology Office/Clinic Note Chief Complaint f/u to [facility] Consult *S/P Cysto/Lt Stent Placement HPI Staff PRW pt Last seen in our office 01/06/21 due to Kidney Stone & UTI. S/P Lt ESWL 02/27/21 by PRW Post op KUBs reviewed. No follow up. Pt is here today for a F/U to [facility] Consult on 06/15/23 CC left lower quadrant pain with nausea and vomiting, urinary incontinence, some dysuria, CT abdomen pelvis w con @ [facility] Cystoscopy , left stent placement @ [facility] 06/15/23 *Taking Tamsulosin 0.4 mg qd [...] E Coli Unable to locate PVR on [facility] system. Denies current flank pain. Denies [...] recurrent stones was seen in consultation at [facility] on 06/15/2023 with a 6 x 4 mm left proximal ureteral stone, moderate hydronephrosis and UTI s/p cystoscopy, left ureteral stent placement. Colorblind 1. Ureteral stone (N20.1: Calculus of ureter) [facility] Consult on 06/15/23 CC left lower quadrant pain with nausea and vomiting, urinary incontinence, dysuria CT abdomen pelvis w con @ [facility] - 6 x 4 mm left [...] Consider metabolic (more content not included)... Normal [facility] Comment on above: Result Comment: Elec tronically Signed By: Ronnie JOHNS, Keerthi Myers\.br\Date and Time Signed: 06/23/23 20:21 EST RAD - MISCon 06-17-2023 RAD - MISC [id number] .00TIFF Normal [facility] Consultation Noteon 06-16-19 Consultation Note [id number]#1 .00TIFF Normal [facility] Operative Reporton Operative Report [id number]#1 .00TIFF Normal [facility] MG MAMM SCREEN 3D MARCOS CADon 08-24-2022 MG MAMM SCREEN 3D MARCOS CAD Patient: JEANNETTE PORTER Exam Date: 08/24/2022 : 1945 Gender:F Ordering : DR ADARSH CONNER M.D. Admission #: [id number] Family : Order #: [id number] CLICK HERE TO VIEW EXAM RADIOLOGY REPORT [...] mouth cancer at age 71. LOCATION: [facility] BREAST COMPOSITION: Heterogeneously dense,which may obscure [...] PALPABLE LUMP SHOULD BE BIOPSIED. Dictated by: Kyara Dumont M.D. on 08/24/2022 at 12:06 Approved by: Kyara Dumont M.D. on 08/24/2022 at 12:10 Normal [facility] Vital Signs Date Time Vital Sign Value Performing Clinician Facility 07-20-2023 14:37-0500 Diastolic blood pressure 62 mm[Hg] Keerthi Trujillo [facility] 07-20-2023 14:37-0500 Systolic blood pressure 136 mm[Hg] Keerthi Trujillo [facility] 07-20-2023 14:36-0500 Heart rate 83 /min Keerthi Lue [facility] 07-20-2023 14:36-0500 SaO2% (BldA) [Mass fraction] 96 % Keerthi Lue [facility] 07-20-2023 14:36-0500 Diastolic blood pressure 80 mm[Hg] Keerthi Lue [facility] 07-20-2023 14:36-0500 Mean blood pressure 104 mm[Hg] Keerthi Lue [facility] 07-20-2023 14:36-0500 Systolic blood pressure 152 mm[Hg] Keerthi Lue [facility] 07-20-2023 14:35-0500 Respiratory rate 16 /min Keerthi Lue [facility] 07-20-2023 13:33-0500 Heart rate 77 /min Keerthi Lue [facility] 07-20-2023 13:33-0500 SaO2% (BldA) [Mass fraction] 93 % Keerthi Lue [facility] 07-20-2023 13:32-0500 Respiratory rate 16 /min Keerthi Lue [facility] 07-20-2023 13:31-0500 Diastolic blood pressure 66 mm[Hg] Keerthi Lue [facility] 07-20-2023 13:31-0500 Mean blood pressure 84 mm[Hg] Keerthi Lue [facility] 07-20-2023 13:31-0500 Systolic blood pressure 121 mm[Hg] Keerthi Lue [facility] 07-20-2023 13:27-0500 Body temperature 97.34 [degF] Keerthi Lue [facility] 07-20-2023 13:27-0500 Heart rate 72 /min Keerthi Lue [facility] 07-20-2023 13:27-0500 Mean blood pressure 80 mm[Hg] Keerthi Lue [facility] 07-20-2023 13:27-0500 Respiratory rate 16 /min Keerthi Lue [facility] 07-20-2023 13:27-0500 SaO2% (BldA) [Mass fraction] 94 % Keerthi Lue [facility] 07-20-2023 13:15-0500 Mean blood pressure 82 mm[Hg] Keerthi Lue [facility] 07-20-2023 13:15-0500 Respiratory rate 16 /min Keerthi Lue [facility] 07-20-2023 13:10-0500 Mean blood pressure 79 mm[Hg] Keerthi Lue [facility] 07-20-2023 13:10-0500 Respiratory rate 14 /min Keerthi Lue [facility] 07-20-2023 13:02-0500 Body temperature 97.16 [degF] Keerthi Lue [facility] 07-20-2023 12:55-0500 Respiratory rate 14 /min Keerthi Lue [facility] 07-20-2023 09:51-0500 Mean blood pressure 91 mm[Hg] Keerthi Lue [facility] 07-20-2023 09:49-0500 Body temperature 97.52 [degF] Keerthi Lue [facility] 07-15-2023 15:31-0500 Heart rate 65 /min Keerthi Lue [facility] 07-15-2023 15:31-0500 SaO2% (BldA) [Mass fraction] 96 % Keerthi Lue [facility] 07-15-2023 15:30-0500 Diastolic blood pressure 83 mm[Hg] Keerthi Lue [facility] 07-15-2023 15:30-0500 Mean blood pressure 100 mm[Hg] Keerthi Lue [facility] 07-15-2023 15:30-0500 Systolic blood pressure 136 mm[Hg] Keerthi Lue [facility] 06-23-2023 10:26-0500 Blood Pressure Location Keerthi Lue [facility] 06-23-2023 10:26-0500 Diastolic blood pressure 67 mm[Hg] Keerthi Lue [facility] 06-23-2023 10:26-0500 Heart rate 67 /min Keerthi Lue [facility] 06-23-2023 10:26-0500 Respiratory rate 16 /min Keerthi Lue [facility] 06-23-2023 10:26-0500 Systolic blood pressure 118 mm[Hg] Keerthi Lue [facility] Encounters Encounter Date Encounter Type Care Provider Facility Start: 01-19-2024 ambulatory Keerthi M. Lue Facility:[facility] Start: 11-18-2023 End: 11-18-2023 ambulatory ADARSH CONNER Not Available Start: 11-05-2023 End: 11-05-[address] [facility] Start: 09-13-2023 End: 09-13-[address] [facility] Start: 07-20-2023 End: 07-20-2023 ambulatory Keerthi Trujillo Facility:[facility] Start: 07-20-2023 End: 07-20-2023 Admission to same day surgery center Keerthi Trujillo [facility] Start: 07-15-2023 End: 07-16-2023 ambulatory Keerthi Trujillo Facility:[facility] Start: 07-15-2023 End: 07-15-2023 Patient encounter procedure Keerthi Trujillo [facility] Start: 07-09-2023 End: 07-09-[address] [facility] Start: 06-28-2023 End: 06-28-2023 ambulatory ADARSH CONNER Not Available Start: 06-23-2023 End: 06-24-2023 ambulatory Keerthi Trujillo Facility:[facility] Start: 06-23-2023 End: 06-23-2023 Patient encounter procedure [facility]ertih [facility]Yina [facility]dw[facility] Start: 06-15-2023 End: 06-16-2023 ambulatory Keerthi Trujillo Facility:[id number] Start: 05-26-2023 End: 05-26-2023 ambulatory ADARSH CONNER Not Available Start: 08-24-2022 End: 08-25-[address] ADARHS CONNER Facility: Start: 04-30-2021 End: 04-30-2021 ambulatory Sohail Grimes Facility:[facility] Procedures Date Procedure Procedure Detail Performing Clinician [...] Immunization Date Immunization Notes Care Provider Lizzeth cueto 04-07-2023 influenza virus vacc ine, unspecified formulation Keerthi Lue [facility] 03-19-2022 influenza virus vacc ine, unspecified formulation Keerthi Lue [facility] 12-24-2021 SARS-CoV-2 mRNA (wapzbkflvjp-mkfq-ccsvqv e) vaccine Keerthi Lue [facility] Comment on above: Result Comment: 2023: [id number] 05-01-2021 influenza virus vacc ine, unspecified formulation Keerthi Lue [facility] 08-15-2020 SARS-CoV-2 (COVID-19 ) mRNA BNT-162b2 vax Keerthi Lue [facility] 07-29-2020 SARS-CoV-2 (COVID-19 ) mRNA-1273 vaccine Keerthi Lue [facility] 07-25-2020 SARS-CoV-2 (COVID-19 ) mRNA BNT-162b2 vax Keerthi Lue [facility] 07-01-2020 SARS-CoV-2 (COVID-19 ) mRNA-1273 vaccine Keerthi Lue [facility] 03-04-2020 influenza virus vacc ine, unspecified formulation Keerthi Lue [facility] 04-18-2019 influenza virus vacc ine, unspecified formulation Keerthi Lue [facility] 06-15-2018 zoster vaccine recombinant Keerthi Lue [facility] 01-11-2018 influenza virus vacc ine, unspecified formulation Keerthi Lue [facility] 01-11-2018 zoster vaccine recombinant Keerthi Lue [facility] 03-01-2017 pneumococcal polysaccharide vaccine, 23 valent Keerthi Lue [facility] 02-17-2017 influenza virus vacc ine, unspecified formulation Keerthi Lue [facility] 09-02-2015 pneumococcal conjuga te vaccine, 13 valent Keerthi Lue [facility] 12-31-2014 zoster vaccine, live Keerthi L ue [facility] 09-06-2014 pneumococcal conjuga te vaccine, 13 valent Keerthi Lue [facility] 04-24-2013 influenza virus vacc ine, unspecified formulation Keerthi Trujillo [facility] Payers Date Payer Category Payer Private Health Insurance 2020 Self-pay [id number] 1958 Medicare [id number] 1958 Private Health Insurance [id number] 1945 Unknown [id number] [id number]. 2.593 1945 Unknown [id number] 2.16.840.1.647694.3.579. 2.727 1945 Unknown [id number] 2.16.840.1.415083.3.579. 2.727 1945 Unknown [id number] 2.16.840.1.018174.3.579. 2.727 1945 Unknown [id number] 2.16.840.1.357485.3.579. 2.727 1945 Unknown [id number] 2.16.840.1.055789.3.579. 2.727 1945 Unknown [id number] 2.16.840.1.219434.3.579. 2.1259 1945 Unknown [id number] 2.16.840.1.187940.3.579. 2.1259 1945 Unknown [id number] 2.16.840.1.098647.3.579. 2.1259 Unknown [id number] Conversion Insurance [id number] Unknown [id number] 2.16.840.1.291569.3.579. 2.531 Social History Date Type Detail Facility Tobacco smoking stat us NHIS Unknown if ever smoked [facility] Work Phone: Start: 1945 Sex Assigned At Female F [facility] Start: 06-23-2023 Tobacco smoking status Never s moked tobacco (finding) [facility] Tobacco smoking status Never [facility] Sex Assigned At Female [facility] Medical Equipment Procedure Code Equipment Code Equipment Origin al Text Equipment Identifier Dates Thoracotomy PROGEL PLEURAL A IR LEAK FDA Start: 09-20-2018 CYSTOSCOPY RETROGRADE STENT INSERTION Ronnie JOHNS, Keerthi Myers 07/20/23 Unknown Ureter L FDA Start: 07-20-2023 Functional Status Date Assessment Result Facility 07-15-2023 Functional Status No [facility] 06-23-2023 Functional Status N/A [facility] Clinical Notes 06-23-2023 to 11-05-2023 Note Date & Type Note Facility 11-05-2023 Note Cardiology Follow Up Progress Note Chief Complaint: follow up HPI: Jeannette Porter is a 78 y.o. female with a past medical history history including hypertension hyperlipidemia who presents to cardiology clinic for perioperative risk stratification prior to kidney stone removal. Patient presents today for follow up. She is doing well. No cardiac complaints or concerns. Patient denies any chest pain or shortness of breath. Patient denies any lower extremity edema, orthopnea, or proximal nocturnal dyspnea. No near-syncope or syncope. No dizziness or lightheadedness. Repeat Echo shows small pericardial effusion in addition to possible PFO vs ASD. Cardiology ROS: GENERAL: Denies fever, chills, night [...] Nitrofurantoin monohyd/m-cryst Physical Exam VITAL SIGNS: BP 118/74 (BP Location: Left arm, Patient Position: Sitting) Pulse 63 Ht 1.549 m (5' 1 ) Wt [...] Mood normal. Impression: -Abnormal EKG -Sinus bradycardia -HLD -Small pericardial effusion, incidental finding -PFO vs ASD, assymptomatic, incidental finding Plan: -Patient is on daily baby aspirin. Continue. No history of stroke. No indication for PFO closure a this time. Discussed possible DEVEN, patient declines at this time -Avoid AV madelin blockade agents. No symptoms per patient -Continue Atorvastatin 40 mg daily for HLD -Optimize medical management -Aggressive risk factor modification -Plan of care discussed with patient. All questions were answered. Patient voices understanding and is agreeable with current plan. -Patient was educated on red flag symptoms. Strict return precautions were provided. Patient verbalizes understanding -Follow-up in cardiology clinic in 1 month, or sooner as needed Conner Jalloh MD Interventional Cardiology [facility] 09-13-2023 Note Cardiology Follow Up Progress Note Chief Complaint: follow up HPI: Jeannette Porter is a 78 y.o. female with a past medical history history including hypertension hyperlipidemia who presents to cardiology clinic for perioperative risk stratification prior to kidney stone removal. Patient presents today for follow up. She is doing well. Patient adamantly denies any cardiac complaints or concerns. Patient denies any chest pain or shortness of breath. Patient denies any lower extremity edema, orthopnea, or proximal nocturnal dyspnea. No near-syncope or syncope. No dizziness or lightheadedness. Echo obtained demonstrates Normal LVEF, no regional wall motion abnormalities. Patient does have a small pericardial effusion. Cardiology ROS: GENERAL: Denies fever, chills, night [...] Nitrofurantoin monohyd/m-cryst Physical Exam VITAL SIGNS: BP 118/74 (BP Location: Left arm, Patient Position: Sitting) Pulse 63 Ht 1.549 m (5' 1 ) Wt [...] Mood normal. Impression: -Abnormal EKG -Sinus bradycardia -HLD -Small pericardial effusion Plan: -Will repeat in 1 month to assess pericardial effusion -Avoid AV madelin blockade agents. No symptoms per patient -Continue Atorvastatin 40 mg daily for HLD -Optimize medical management -Aggressive risk factor modification -Plan of care discussed with patient. All questions were answered. Patient voices understanding and is agreeable with current plan. -Patient was educated on red flag symptoms. Strict return precautions were provided. Patient verbalizes understanding -Follow-up in cardiology clinic in 1 month, or sooner as needed Conner Jalloh MD Interventional Cardiology [facility] 07-20-2023 Hospital Discharg e instructions Patient Education 07/20/2023 13:43:33 Post Op Patient Instructions - FT (Custom) (CUSTOM) 07/20/2023 13:16:12 Uodl-Mhgg-vp Utereroscopy,Lithotripsy, Stone Extraction, Stent Placement (CUSTOM) [facility] [place], [place] Post-operative Instructions for Ureteroscopy, Laser Lithotripsy, [...] stent, if present. AZO can be purchased szkc-kle-yslcixi for burning with urination/urinary pain. This will [...] up with Dr. Trujillo in 6 months [phone] Follow Up Care 07/12/2023 12:56:00 With:Keerthi Trujillo Address:Unknown When: Unknown Comments:Office to call to schedule your follow up in 6 mths. Obtain renal US in 6 wks, office to call with results [facility] 07-20-2023 Evaluation + Plan note Extrac benigno from: Title:EU - L URS, laser lith o, stone extraction, stent exchange Author:Keerthi Trujillo MD Date:07/20/23 Impression and Plan Diagnosis Kidney stones (XIG55-AZ N20.0, Discharge, Medical). Ureteral stone ([id number]-LR N20.1, Working, Medical). Diagnosis Kidney stones ([id number] N20.0, Discharge, Medical). Extracted from: Title:Home Basic PRE Author:Home Espinoza siology ()Pola Date:07/20/23 Plan [place] [employer] (ASA) physical status classification: Class III. Anesthetic Preoperative Plan: Anesthesia General. Diagnostic Tests Pending * Calculi Analysis Urinary 07/20/23 [facility]02-13-2024 Note [id number] NotePatient here for surgery clearance [...] Systems All other systems reviewed and are negative.[facility] 07-09-2023 NoteCardiology Follow Up Progress Note Chief [...] as needed Conner Jalloh MD Interventional Cardiology [facility] Addendum 07/16/2023: Echocardiogram obtained and reviewed. Normal LVEF, no regional wall motion abnormalities. Patient does have a small pericardial effusion. This should not preclude her from having surgery. Given no symptoms and given ability to complete greater than 4 METS of activity, patient is moderate risk for surgery. She may proceed without additional cardiac testing (more content not included)...[facility]01-24-2024 Hospital Discharge instructions Patient Education 06/23/2023 11:12:17 [...] include: ?8 oz (237 mL) of milk, dlhrljk-pafyxpbfmssy-qbkoc milk, and calcium- fortifiedfruit juice. Calcium-fortified means [...] ?Spinach (cooked), rhubarb, beets, sweet potatoes, and Dominican chard. ?Peanuts. ?Potato chips, malaysian fries, and baked potatoes with skin on. ?Nuts and nut products. ?Chocolate. If you regularly take a diuretic medicine, make sure to eat at least 1 or 2 servings of fruits or vegetables that are high in potassium each day. These include: ?Avocado. ?Banana. ?Aurora, prune, carrot, or tomato juice. ?Baked potato. [...] magnesium, fish oil, or vitamin B6. Take qnhp-jrs-kiosacx and prescription medicines only as told by [...] Casseroles. Pizza. Lasagna. Frozen meals. Potato chips. Tongan fries. The items listed above may not [...] provider. Document Revised: 08/27/2022 Document Reviewed: 08/27/2022 [employer] Patient Education 2022 [employer]. Follow Up Care 06/16/2023 11:07:45 With:Ronnie JOHNS, ISABEL KaurL, URO Address: When: Unknown Comments:Schedule stone procedure [facility] evaluation + Plan note No data available for this section [facility] evaluation + Plan note Future Appointments Appointment Date:07/20/2023 12:45:00 PM Scheduled Provider: Location:[facility] Appointment Type:Surgery FT Diagnostic Tests Pending * Urine Culture [facility]23 [facility] assessment information available [facility] Work Phone: Hospital Discharge instructions No data available for this section [facility] No data available for this section [facility] Summary Purpose Family History No Family History [...] and content) DATE CREATED AUTHOR 09/01/2022 [facility] DATE CREATED AUTHOR AUTHOR'S ORGANIZ ATION 01/30/2023 [facility] DATE CREATED AUTHOR AUTHOR'S ORGANIZ ATION 09/17/2023 [facility] DATE CREATED AUTHOR AUTHOR'S ORGANIZ ATION 11/06/2023 [facility] DATE CREATED AUTHOR AUTHOR'S ORGANIZ ATION 11/20/2023 [facility] EPIC Goals (unrecognized section and content) Goals may be documented in a n alternate section No data available for this section No data available for this section No data available for this section Patient Care team informatio n (unrecognized section and content) Personnel Name: ADARSH CONNER MD Address: Address: [address] [place] [address] Personnel Name: ADARSH CONNER MD Address: Address: [address] [place] [address] Personnel Name: ADARSH CONNER MD Address: Address: [address] [place] [address] FOR RECORDS PERTAINING TO PATIENTS WHO ARE [...] PRIMARY CLINICAL RECORDS. [facility] [employer] [facility]. provides no warranty or guarantee of the accuracy or completeness of information in this document.
== END 2023-12-21 09:14 | disposition home or self-care (01) ==
LOC: US 09:14
PROVIDERS: PCP Internal Medicine; Visit Provider Urology
DX: N20.0 Calculus of kidney (principal)
CPT/HCPCS: 74018; 76775

== ENCOUNTER 2024-06-30 04:29 | Emergency (ER) | payer MEDICARE, OTHER, SELFPAY ==
[2024-06-30] VITALS (26 sets, daily range): BP systolic 126–148; BP diastolic 48–69; PULSE 0–83; TEMP 37.1; O2SAT 93–99; BMI 31.2
--- OUTSIDE RECORDS SUMMARY | 2024-06-30 04:37 | XMS_ITS | CCD ---
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 [Other specified disorders of bone density and structure, unspecified site] Onset: 10-29-2022 10-29-2022 Episodic Other diseases of kidney and ureters (14 sources) Hydronephrosis with renal and ureteral calculous obstruction; Translations: [Hydronephrosis] Onset: 10-29-2022 10-29-2022 Episodic Other fractures (14 sources) Fracture of multiple ribs ; Translations: [Multiple fractures of ribs, right side, initial encounter for closed fracture] Onset: 11-28-2015 10-29-2022 Episodic Other injuries and conditions due to external causes (14 sources) Injury of eye region; Translations: [Unspecified injury of right eye and orbit, initial encounter] Onset: 11-28-2015 Resolved: 10-29-2022 10-29-2022 Episodic Other nervous system disorders (17 sources) Postoperative pain ; Translations: [Other acute postprocedural pain] Onset: 06-28-2023 02-23-2019 Episodic Comment on above: Problem List clean-u p per request of Phys. EHR Cmte Other nervous system disorders (14 sources) Unsteady when standing; Translations: [Unsteadiness on feet] Onset: 10-29-2022 10-29-2022 Episodic Other screening for suspected conditions (not mental disorders or infectious disease) (20 sources) Encounter for screening mammogram for malignant neoplasm of breast; Translations: [Electrocardiogram abnormal] Onset: 08-24-2022 Episodic Kate-; endo-; and myocarditis; cardiomyopathy (except that caused by tuberculosis or sexually transmitted disease) (14 sources) Pericardial effusion; Translations: [Pericardial effusion] Onset: 11-18-2023 11-18-2023 Episodic Residual codes; unclassified (17 sources) Patient encounter status; Translations: [Encounter for prophylactic measures, unspecified] Onset: 06-28-2023 02-23-2019 Episodic Comment on above: Problem List clean-u p per request of Phys. EHR Cmte Residual codes; unclassified (14 sources) H/O: pneumonectomy; Translations: [Acquired absence of lung [part of]] Onset: 10-29-2022 10-29-2022 Episodic Skull and face fractures (20 sources) Closed fracture of orbit; Translations: [Fracture of orbit, unspecified, initial encounter for closed fracture] Onset: 11-28-2015 Resolved: 10-29-2022 10-29-2022 Episodic Urinary tract infections (20 sources) Urinary tract infectious disease; Translations: [Urinary tract infection, site not specified] Onset: 06-28-2023 Resolved: 06-20-2024 02-23-2019 Episodic Comment on above: Problem List clean-u p per request of Phys. EHR Cmte Results Test Name Value Interpretation Reference Range Facility BASIC METABOLIC PANELon 06-01 BUN/CREATININE RATIO SEE NOTE: Normal 6-22 [facility] Comment on above: Order Comment: FASTI NG:NO FASTING: NO Result Comment: Not Reported: BUN and Creatinine are within reference range. Performed By: #### 1 0165, 1759 #### [facility] [address], [address] [place] [address] Paper Stripper: Anthony Batista MD Calcium [Mass/Vol] 10.2 mg/dL Normal 8.6-10.4 [facility] Comment on above: Order Comment: FASTI NG:NO FASTING: NO Performed By: #### 1 0165, 1759 #### [facility] [address], [address] [place] [address] Paper Stripper: Anthony Batista MD Chloride [Moles/Vol] 105 mmol/L Normal 98-110 [facility] Comment on above: Order Comment: FASTI NG:NO FASTING: NO Performed By: #### 1 0165, 1759 #### [facility] [place] [address] Paper Stripper: Anthony Batista MD CO2 [Moles/Vol] 24 mmol/L Normal 20-32 [facility] Comment on above: Order Comment: FASTI NG:NO FASTING: NO Performed By: #### 1 0165, 1759 #### [facility] [place] [address] Paper Stripper: Anthony Batista MD Creatinine [Mass/Vol] 0.69 mg/dL Normal 0.60-1.[address] [facility] Comment on above: Order Comment: FASTI NG:NO FASTING: NO Performed By: #### 1 0165, 1759 #### [facility] [place] [address] Paper Stripper: Anthony Batista MD GFR/1.73 sq M.predicted among non-blacks MDRD (S/P/Bld) [Vol rate/Area] 89 mL/min/{1.73_m2} Normal > OR = 60 [facility] Comment on above: Order Comment: FASTI NG:NO FASTING: NO Performed By: #### 1 0165, 1759 #### [facility] [place] [address] Paper Stripper: Anthony Batista MD Glucose [Mass/Vol] 97 mg/dL Normal 65-139 [facility] Comment on above: Order Comment: FASTI NG:NO FASTING: NO Result Comment: Non-fasting reference interval Performed By: #### 1 0165, 1759 #### [facility] [place] [address] Paper Stripper: Anthony Batista MD Potassium [Moles/Vol] 4.5 mmol/L Normal 3.5-5.[address] [facility] Comment on above: Order Comment: FASTI NG:NO FASTING: NO Performed By: #### 1 0165, 175 #### [facility] [place] [address] Paper Stripper: Anthony Batista MD Sodium [Moles/Vol] 137 mmol/L Normal 135-146 [facility] Comment on above: Order Comment: FASTI NG:NO FASTING: NO Performed By: #### 1 016, 175 #### [facility] [address], [address] [place] [address] Paper Stripper: Anthony Batista MD Urea nitrogen [Mass/Vol] 23 mg/dL Normal 7-25 [facility] Comment on above: Order Comment: FASTI NG:NO FASTING: NO Performed By: #### 1 016, 175 #### [facility] [place] [address] Paper Stripper: Anthony Batista MD CBC (H/H, RBC, INDICES, WBC, PLT)on 06-21-2024 Erythrocyte distribution width (RBC) [Ratio] 13.3 % Normal 11.0-15.0 [facility] Comment on above: Performed By: #### 1 0165, 175 #### [facility] [place] [address] Paper Stripper: Anthony Batista MD Hematocrit (Bld) [Volume fraction] 41.7 % Normal 35.0-45.0 [facility] Comment on above: Performed By: #### 1 016, 175 #### [facility] [place] [address] Paper Stripper: Anthony Batista MD Hemoglobin (Bld) [Mass/Vol] 13.7 g/dL Normal 11.7-15.5 [facility] Comment on above: Performed By: #### 1 016, 175 #### [facility] [place] [address] Paper Stripper: Anthony Batista MD MCH (RBC) [Entitic mass] 29.5 pg Normal 27.0-33.0 [facility] Comment on above: Performed By: #### 1 016, 175 #### [facility] [place] [address] Paper Stripper: Anthony Batista MD MCHC (RBC) [Mass/Vol] 32.9 g/dL Normal 32.0-36.[address] [facility] Comment on above: Result Comment: For adults, a slight decrease in the calculated MCHC value (in the range of 30 to 32 g/dL) is most likely not clinically significant; however, it should be interpreted with caution in correlation with other red cell parameters and the patient's clinical condition. Performed By: #### 1 016, 175 #### [facility] [place] [address] Paper Stripper: Anthony Batista MD MCV (RBC) [Entitic vol] 89.9 fL Normal 80.0-100.0 [facility] Comment on above: Performed By: #### 1 016, 175 #### [facility] [place] [address] Paper Stripper: Anthony Batista MD Platelet mean volume (Bld) [Entitic vol] 10.4 fL Normal 7.5-12.5 [facility] Comment on above: Performed By: #### 1 016, 175 #### [facility] [place] [address] Paper Stripper: Anthony Batista MD Platelets (Bld) [#/Vol] 453 10*3/uL High 140-400 [facility] Comment on above: Performed By: #### 1 0165, 1759 #### [facility] of [address], [address] [place] [address] Paper Stripper: Anthony Batista MD RBC (Bld) [#/Vol] 4.64 10*6/uL Normal 3.80-5.10 [facility] Comment on above: Performed By: #### 1 0165, 1759 #### [facility] of [address], [address] [place] [address] Paper Stripper: Anthony Batista MD WBC (Bld) [#/Vol] 6.2 10*3/uL Normal 3.8-10.8 [facility] Comment on above: Performed By: #### 1 0165, 1759 #### [facility] of [address], [address] [place] [address] Paper Stripper: Anthony Batista MD A1C with Estimated Average Carmen agudelo 06-08-2024 Glucose [Mass/Vol] 105 mg/dL Normal [facility] Comment on above: Result Comment: PERF ORMED BY: [place] [address] PATHOLOGIST PRODUCT SAFETY COORDINATOR DWAINE DAILEY M.D. Performed By: #### C UMRSA, A1C WTH eA, ALB, HGB, [id number] #### [address] #### NICOTINE #### [facility] , HbA1c (Bld) [Mass fraction] 5.3 % Normal 4.3-5.6 [facility] Comment on above: Result Comment: Incr eased risk for diabetes: 5.7 - 6.4 diabetes: >6.4 glycemic control for adults with diabetes: <7.0 Performed By: #### C UMRSA, A1C WTH eA, ALB, HGB, [id number] #### [place] [address] [place] #### NICOTINE #### [facility] , Albumin Levelon 06-08-2024 Albumin [Mass/Vol] 4.2 g/dL Normal 3.5-5.7 [facility] Comment on above: Performed By: #### C UMRSA, A1C WTH eA, ALB, HGB, [id number] #### [place] [address] [place] #### NICOTINE #### [facility] , Albumin [Mass/volume] in Ser um or Plasma by Bromocresol green (BCG) dye binding methoOrdered By: Demarcus Barahona on 06-08-2024 Albumin BCG dye [Mass/Vol] Albumin [Mass/volume] in Serum or Plasma by Bromocresol green (BCG) dye binding metho 3.5-5.7 [facility] Blood estimated average gluc ose determination by estimation from glycated hemoglobinOrdered By: Demarcus Barahona on 06-08-2024 Average glucose Estimated from glycated hemoglobin (Bld) [Mass/Vol] Glucose mean value [Mass/volume] in Blood Estimated from glycated hemoglobin [facility] Hemoglobinon 06-08-2024 Hemoglobin (Bld) [Mass/Vol] 13.4 g/dL Normal 11.8-15.4 [facility] Comment on above: Result Comment: PERF ORMED BY: [place] [address] PATHOLOGIST PRODUCT SAFETY COORDINATOR DWAINE DAILEY M.D. Performed By: #### C UMRSA, A1C WTH eA, ALB, HGB, [id number] #### [place] [address] [place] #### NICOTINE #### [facility] , Hemoglobin A1c/Hemoglobin.to dilma in BloodOrdered By: Demarcus Barahona on 06-08-2024 HbA1c (Bld) [Mass fraction] Hemoglobin A1c percentage 4.3-5.6 [facility] Comment on above: Increased risk for d iabetes: 5.7 - 6.4diabetes: >6.4glycemic control for adults with diabetes: <7.0 Hemoglobin [Mass/volume] in BloodOrdered By: Demarcus Barahona on 06-08-2024 Hemoglobin (Bld) [Mass/Vol] Hemoglobin [Mass/volume] in Blood 11.8-15.4 [facility] MRSA Cultureon 06-08-2024 MRSA Culture MRSA Culture Results No MRSA Isolated 2 Days PERFORMED BY: [place] [address] PATHOLOGIST PRODUCT SAFETY COORDINATOR DWAINE DAILEY M.D. Normal [facility] Comment on above: Performed By: #### C UMRSA, A1C WTH eA, ALB, HGB, [id number] #### [facility] [address] [place] [address] #### NICOTINE #### [facility] , Nicotine/Cotinine Bloodon Cotinine, Blood <1.0 Normal . [facility] Comment on above: Result Comment: This test was developed and its performance characteristics determined by [facility]. It has not been cleared or approved by the Food and Drug Administration. Cotinine levels greater than 20.0 are consistent with the use of tobacco or tobacco cessation products. Performed at: [address] [id number] Clinical Data Associate: Leilani Hilliard MD, Phone: [phone] PERFORMED BY: [place] [address] PATHOLOGIST PRODUCT SAFETY COORDINATOR DWAINE DAILEY M.D. Performed By: #### C UMRSA, A1C WTH eA, ALB, HGB, [id number] #### [place] [address] [place] #### NICOTINE #### [facility] , Nicotine, Blood <1.0 Normal . [facility] Comment on above: Result Comment: This test was developed and its performance characteristics determined by [employer] [employer]. It has not been cleared or approved by the Food and Drug Administration. Nicotine levels greater than 2.0 are consistent with the use of tobacco or tobacco cessation products. Performed By: #### C UMRSA, A1C WTH eA, ALB, HGB, [id number] #### [facility] [address] [place] [address] [place] #### NICOTINE #### [facility] , Vitamin D 25 Hydroxy Totalon 06-08-2024 Vitamin D 25 Hydroxy Total 59.2 ng/mL Normal 30-100 [facility] Comment on above: Result Comment: NALLELY MIN D STATUS 25(OH)VITAMIN D RANGE (ng/mL) Deficient <20 Insufficient 20 to <30 Sufficient 30 to 100 Reference: Baldemar Bennett, Domenic BENITEZ, et al. Evaluation,treatment, and prevention of vitamin D deficiency; an Endocrine Society clinical practice guideline. JCEM. 2010; 96(7):1911-30. PERFORMED BY: [place] [address] PATHOLOGIST PRODUCT SAFETY COORDINATOR DWAINE DAILEY M.D. Performed By: #### C UMRSA, A1C WTH eA, ALB, HGB, [id number] #### [address] #### NICOTINE #### [facility] , Vitamin D+Metabolites [Mass/ volume] in Serum or PlasmaOrdered By: Demarcus Barahona on 06-08-2024 Vitamin D+Metabolites [Mass/Vol] Vitamin D+Metabolites [Mass/volume] in Serum or Plasma 30-100 [facility] Comment on above: VITAMIN D STATUS 25( OH)VITAMIN D RANGE (ng/mL) Deficient <20 Insufficient 20 to <30Sufficient 30 to 100Reference: Baldemar Bennett, Domenic BENITEZ, et al. Evaluation,treatment, and prevention of vitamin D deficiency; an Endocrine Society clinical practice guideline. JCEM. 2010; 96(7):1911-30. X-ray reportOrdered By: Buddy Bray on 06-08-2024 Study report [facility] [address] [place] [id number] XRay Report Signed Patient: Jeannette Porter MR#: [id number] : 1945 Acct:[id number] Age/Sex: 79 / F ADM Date: 5 Loc: [facility] Room: Type: [facility] Attending Dr: Demarcus Barahona II, MD Copies to: Demarcus Barahona MD~ Ordering Provider: Demarcus Barahona MD Date of Service: 06/08/24 XR/XR pelvis 1-2V: M25.561 - Pain in right knee ([id number]) XR/XR knee BI 4V: M25.561 - Pain in right knee AP PELVIS, X-RAYS OF THE BILATERAL KNEES, 4 VIEWS: CLINICAL HISTORY: Bilateral knee pain, left side worse COMPARISON: None No evidence of acute fracture or dislocation. Soft tissues are unremarkable. No soft tissue calcifications or radiopaque foreign bodies identified. Degenerative changes as follows: Pelvis: Moderate right and mild left degenerative changes of the hips. Moderatespurring left sacral joints. Yazhylmp-fw-fbbsvz there are changes lower lumbar spine. Right knee: Severe lateral compartment degenerative changes. Apus-tb-xfllgpzb medial compartment degenerative changes. Moderate patellofemoral compartment degenerative changes. Left knee: Severe lateral compartment degenerative changes. Sphw-xj-fubzlhpq medial compartment degenerative changes. Moderate patellofemoral compartment degenerative changes. XR/XR pelvis 1-2V IMPRESSION: NO ACUTE BONY FINDINGS. TRICOMPARTMENTAL DEGENERATIVE CHANGES OF THE BILATERAL KNEES AND DEGENERATIVE CHANGES OF THE HIPS AND PELVIS. Impression dictated by: Hang Bray M.D.06/08/2024 10:31 AM Dictation Location: [place] [address] Transcribed By: [facility] 06/08/24 1031 Dictated By: Hang Bray MD 06/08/24 1027 Signed By: 06/08/24 1031 [facility] Work Phone: XR knee BI 4Von 06-08-2024 XR knee BI 4V [facility] [address] [place] [address] XRay Report Signed Patient: Jeannette Porter MR#: [id number] : 1945 Acct:[id number] Age/Sex: 79 / F ADM Date: 06/08/24 Loc: [facility] Room: Type: [facility] Attending Dr: Demarcus Barahona II, MD Copies to: Demarcus Barahona MD Ordering Provider: Demarcus Barahona MD Date of Service: 06/08/24 XR/XR pelvis 1-2V: M25.561 - Pain in right knee ([id number]) XR/XR knee BI 4V: M25.561 - Pain in right knee AP PELVIS, X-RAYS OF THE BILATERAL KNEES, 4 VIEWS: CLINICAL HISTORY: Bilateral knee pain, left side worse COMPARISON: None No evidence of acute fracture or dislocation. Soft tissues are unremarkable. No soft tissue calcifications or radiopaque foreign bodies identified. Degenerative changes as follows: Pelvis: Moderate right and mild left degenerative changes of the hips. Moderate spurring left sacral joints. Hzkqgvvq-ht-lepjyh there are changes lower lumbar spine. Right knee: Severe lateral compartment degenerative changes. Zcfz-lj-khecivpb medial compartment degenerative changes. Moderate patellofemoral compartment degenerative changes. Left knee: Severe lateral compartment degenerative changes. Zhps-sc-gsoyxuij medial compartment degenerative changes. Moderate patellofemoral compartment degenerative changes. XR/XR pelvis 1-2V IMPRESSION: NO ACUTE BONY FINDINGS. TRICOMPARTMENTAL DEGENERATIVE CHANGES OF THE BILATERAL KNEES AND DEGENERATIVE CHANGES OF THE HIPS AND PELVIS. Impression dictated by: Hang Bray M.D.06/08/2024 10:31 AM Dictation Location: [place] [address] Transcribed By: [facility] 06/08/24 1031 Dictated By: Hang Bray MD 06/08/24 1027 Signed By: 06/08/24 1031 Normal [facility] Ophthalmic OCT panelon 06-06 [facility] Left Eye Images reviewed and comparison made to baseline, Images reviewed. To assess optic nerve function and for use in future follow-up. Reliability: good and adequate. 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 Worsening. [facility] Study observation (narrative) [facility] Office Visiton 02-28-2024 Follow-up visit [id number] Jeannette Porter 1945 F Date Provider Department Center 02/28/2024 3848-[facility] CARD Vira Figueredo Family History Problem Relation Age of Onset Other Father Family Status - Relation Status Age at Father Level of Service:80843 [place] OFFICE/OUTPATIENT ESTABLISHED LOW MDM 20 MIN Normal [facility] Reminderson 01-19-2024 Reminders Reminders - From: Carleen Truong To: HEIDI - Recalls Lue; Sent: 01/19/2024 10:52:47 EDT Show up: 12/18/2024 10:52:00 EDT Subject: 1 yr CHACHO Due Date/Time: 01/18/2025 10:52:00 EDT Reminder Message Please Remember to:_please schedule pt for 1 yr CHACHO. She will also need KUB for 1 yr appt. thanks. PATIENT RELATED REMINDER:_ ( ) Call Patient ( ) Ask Patient to ( ) Call Relative ( ) Schedule Patient ( ) Follow up on Results ( ) Other: PROVIDER RELATED REMINDER:_ ( ) Home Planning Consultant Salesperson ( ) Call Pharmacy ( ) Call Lab ( ) Other: Special Instructions:_ Comments:_ Normal [facility] Urology Office/Clinic Noteon 01-19-2024 Urology Office/Clinic Note Urology Office/Clinic Note Chief Complaint 7 month follow up HPI Staff 6 month follow up w/metabolic workup, CHACHO, KUB Previous DX: kidney stone, UTI, cancer of abdomen cyst Dysuria: denies Incomplete bladder emptying: denies Hematuria: denies visible blood Frequency: denies Urgency: denies Nocturia: once a night Stream: denies hesitancy, has a steady stream Leaking: denies Post void dripping: denies Wearing pads/ Depends: wears pads when leaving home Urge incontinence: denies Stress incontinence: when sneezing Incontinence without Sensory Awareness: denies Abdominal pain: denies Flank pain: denies Sexual complaints: _ History of Present Illness Tests reviewed: reviewed UA, met workup, KUB, CHACHO, stone analysis I have reviewed the previous health record information and history for this patient from Dr. Trujillo. I have reviewed and verified the staff HPI to be accurate for this encounter. Review of Systems PHQ Score Initial [...] HPI. Physical Exam Vitals & Measurements HR: 73(Peripheral) RR: 16 BP: 128/48 HT: 60 in HT: 153 cm WT: 72.2 kg WT: 158.84 lb BMI: 30.84 General Appearance: alert, no distress, well nourished, well developed female. Assessment/Plan 78-year-old female with a history of recurrent stones here for renal stone surveillance. Colorblind 1. Kidney stones (N20.0: Calculus of kidney) S/p cysto, L RGP, L URS, laser litho, stone extraction, stent exchange 07/20/23 - CaOx 50%, hydroxyapatite 50% CHACHO 12/21/23 [facility] - Several R renal stones, largest 6 mm. Several L renal stones, largest 7 mm. Bilateral slight dilation of several calyces and mild cortical thinning. Personal review: stones appear to be intraparenchymal. KUB 12/21/23 [facility] - Neg. Litholink 12/28/23 - Volume 1,000 cc L. Citrate 409 mildly low. Magnesium 26 L. Reviewed litholink and imaging with pt. Educated pt on dietary modifications to increase Mg and greatly improve fluid intake for stone prevention. Educated pt Topiramate can cause renal stones (hydroxyapatite) and it would be preferable if this med can be switched, ask neurologist. Pt would like to cont monitoring. Follow up 1 yr KUB and CHACHO or sooner if needed. Pt understands and agrees with plan. -Increase fluid intake. Goal 90-100 oz. Add lemon. -Increase dietary Mg. 2. Abnormal urinalysis (R82.90: Unspecified abnormal findings in urine) UA shows trace-intact blood, + nitrites, and small leuks. Asx. Cont sx monitoring 3. Stress incontinence, female (N39.3: Stress incontinence (female) (male)) BBS 10. Denies significant bother Follow-up With When Contact Information Keerthi Trujillo MD, URL, URO Additional Instructions: 1 yr KUB and CHACHO Patient Education Dietary Guidelines to Help Prevent Kidney Stones I, Carleen Truong, personally scribed for Dr. Trujillo on 01/19/2024 10:51:52. . Documentation recorded by the scribe, Carleen Truong, accurately reflects the services(s) I performed and decisions made by me. Authenticated by Dr. Trujillo on 01/19/2024 11:06:42. Problem List/Past Medical History Ongoing Abnormal urinalysis Acute head injury Atypical migraine Cancer of abdomen cyst History of UTI Hyperlipidemia Kidney stones Personal history of kidney stones Stress incontinence, female Ureteral stone UTI (urinary tract infection) UTI symptoms Historical Hypertension Procedure/Surgical History Cystoscopy and electrohydraulic lithotripsy of calculus of bladder (07/20/2023), Cystoscopic insertion of ureteric stent (06/15/2023), ESWL of kidney (01/31/2021), Biopsy of breast, Colonoscopy, Cystoscopy, History of tonsillectomy, Lung cyst removal. Medications aspirin 81 mg oral tablet, Oral, Daily atorvastatin, Oral, Daily cefdinir 300 mg Cap Citracal Plus Bone Density Builder, Oral, Daily latanoprost ophthalmic, qPM omeprazole 40 mg Cap-DR, 40 mg= 1 cap(s), Oral, Daily tamsulosin 0.4 mg Cap topiramate, 25 mg, Oral, BID Vitamin D3, 10 mcg, Oral, Daily Allergies No Known Allergies Social History Tobacco Never (less than 100 in lifetime) Tobacco Use:. Never Smokeless Tobacco Use:. Household tobacco concerns: No. Yes, 01/19/2024 Family History Diabetes mellitus type 1: Mother and Father. Heart disease: Father. Hypertension: Mother. Stroke: Mother. Immunizations Vaccine Date Status Comments influenza virus vaccine, inactivated 04/07/2023 (more content not included)... Normal [facility] Comment on above: Result Comment: Elec tronically Signed By: Keerthi Trujillo MD\.br\Date and Time Signed: 01/19/24 11:07 EDT\.br\Electronically Co-Signed By: Carleen Truong\.br\Date and Time Co-Signed: 01/19/24 10:52 EDT Office Visiton 11-05-2023 Follow-up visit [id number] Hernadez 1945 F Date Provider [facility] Problem Relation Age of Onset Other Father Family Status - Relation Status Age at Father Level of Service:94001 MA OFFICE/OUTPATIENT ESTABLISHED MOD MDM 30 MIN Normal [facility] RAD - Ultrasound Reporton RAD - Ultrasound Report [id number] #[id number] Normal [facility] RAD - Ultrasound Reporton RAD - Ultrasound Report [id number] #1.00TIFF Normal [facility] Office Visiton 09-13-2023 Follow-up visit [id number] Hernadez 1945 F Date Provider Department [facility] Family History Problem Relation Age of Onset Other Father Family Status - Relation Status Age at Father Level of Service:77430 MA OFFICE/OUTPATIENT ESTABLISHED MOD MDM 30 MIN Normal [facility] Orders Onlyon 09-13-2023 Orders Only [id number] Jeannette Porter 1945 F Date Provider Department Center 09/13/2023 [facility] Family History Problem Relation Age of Onset Other Father Family Status - Relation Status Age at Father Normal [facility] Calculus Analysison 07-27-19 24 Calcium oxalate dihydrate Infrared spectroscopy (Stone) [Mass fraction] 40 % Invalid Interpretation Code [facility] Comment on above: Performed By: #### 1 [id number] #### [facility] [address] [place] [address] Calcium oxalate monohydrate (Stone) [Mass fraction] 10 % Invalid Interpretation Code [facility] Comment on above: Performed By: #### 1 [id number] #### [facility] [address] [place] [address] Calculus analysis [Interp] Comment Invalid Interpretation Code [facility] Comment on above: Result Comment: Calc ium phosphate (hydroxyl form) includes hydroxyapatite, amorphous calcium phosphate, and whitlockite. Hydroxyapatite is the most common of the calcium phosphate salts found in human kidney stones. Performed By: #### 1 [id number] #### [facility] [address] [place] [address] Color (Stone) Brown Invalid Interpretation Code [facility] Comment on above: Performed By: #### 1 [id number] #### [facility] [address] [place] [address] Composition Comment Invalid Interpretation Code [facility] Comment on above: Result Comment: Perc entage (Represents the % composition) Performed By: #### 1 [id number] #### [facility] [address] [place] [address] Disclaimer: Comment Invalid Interpretation Code [facility] Comment on above: Result Comment: This test was developed and its performance characteristics determined by [employer]. It has not been cleared or approved by the Food and Drug Administration. Performed at: [address] [id number] Eden Landeros Performed By: #### 1 [id number] #### [facility] [address] [place] [address] Hydroxyapatite: 50 % Invalid Interpretation Code [facility] Comment on above: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 Yellow (07/15/23 4:18 PM) Normal Yellow [facility] UA Auto SS Epithelial cells.squamous LM.HPF (Urine sed) [#/Area] 0-2 /HPF Normal 0-2/HPF [facility] UA Aut o SS Glucose Test strip (U) [Mass/Vol] Negative (07/15/23 4:18 PM) Normal Negative [facility] UA Auto SS Hemoglobin Ql (U) 3+ *ABN* (07/15/23 4:18 PM) Invalid Interpretation Code Negative [facility] UA Auto SS Ketones (U) [Mass/Vol] Negative (07/15/23 4:18 PM) Normal Negative [facility] UA Auto SS [place].plasma/[place] .RBC (Bld) [Mass ratio] >75 /HPF Invalid [...] [facility] UA Auto SS Urobilinogen Qn (U) 0.0526920 {Starr'U}/dL Normal 0.0 - 1.0 EU/dL [facility] [...] mGy = na DAP = na Normal [facility] eGFRon 07-15-2023 eGFR 58 mL/min/1.73 m2 Low >=59 [facility] Comment on above: Order Comment: Order added by Discern Expert. Performed By: #### 1 [id number], [id number], [id number], [id number] ####[facility] [address] [place] [address] Outside Recordson 07-13-2023 Outside Records [id number] 5#1.00TIFF Normal [facility] Office Visiton 07-09-2023 Follow-up visit [id number] Jeannette Porter 1945 F Date Provider Department Center 07/09/2023 3848-CONNER VALERIO CARD [facility] No family history on file Level of Service:16950 MA OFFICE/OUTPATIENT ESTABLISHED MOD MDM 30 MIN Normal [facility] Lab Reportson 06-30-2023 Lab Reports [id number] #1.00TIFF Normal [facility] ECG 12-Leadon 06-29-2023 ECG 12-Lead [id number] #1.00TIFF Normal [facility] Consent for Procedure/Surger yon 06-25-2023 Consent for Procedure/Surgery [id number] 2#1.00TIFF Normal [facility] Lab Reportson 06-24-2023 Lab Reports [id number] #1.00TIFF Normal [facility] Screenson 06-24-2023 Screens [id number] 4#1.00TIFF Normal [facility] Ambulatory Visit Summaryon 0 06-23-2023 Ambulatory Visit Summary GERMANJEANNETTE :1945 Visit Date:06/23/2023 Ambulatory Visit Instructions Your [...] ? 8 oz (237 mL) of milk, calcium-fortifiednon -dairy milk, and calcium-fortifiedfru it juice. Calcium-fortified means that calcium has been [...] person to (more content not included)... Normal [facility] Patient Educationon 06-23-19 Patient Education Nephrology Dietary [...] ? 8 oz (237 mL) of milk, calcium-fortifiednon -dairy milk, and calcium-fortifiedfru it juice. Calcium-fortified means that calcium has been [...] Spinach (cooked), rhubarb, beets, sweet potatoes, and Guamanian chard. ? Peanuts. ? Potato chips, chinese fries, and baked potatoes with skin on. ? Nuts and nut products. ? Chocolate. ? If you regularly take a diuretic medicine, make sure to eat at least 1 or 2 servings of fruits or vegetables that are high in potassium each day. These include: ? Avocado. ? Banana. ? Lucas, prune, carrot, or tomato juice. ? Baked [...] fish oil, or vitamin B6. ? Take sfof-wmy-xskntxs and prescription medicines only as told by your health care provider. These include supplements. What foods sh (more content not included)... Normal [facility] Urology Office/Clinic Noteon 06-23-2023 Urology Office/Clinic Note Chief Complaint f/u to [facility] Consult *S/P Cysto/Lt Stent Placement HPI Staff PRW pt Last seen in our office 01/06/21 due to Kidney Stone & UTI. S/P Lt ESWL 02/27/21 by PRW Post op KUBs reviewed. No follow up. Pt is here today for a F/U to [facility] Consult on 06/15/23 CC left lower quadrant pain with nausea and vomiting, urinary incontinence, some dysuria, CT abdomen pelvis w con @ [facility] Cystoscopy , left stent placement @ [facility] 06/15/23 *Taking Tamsulosin 0.4 mg qd for [...] E Coli Unable to locate PVR on [facility] system. Denies current flank pain. Denies pain/burning [...] recurrent stones was seen in consultation at [facility] on 06/15/2023 with a 6 x 4 mm left proximal ureteral stone, moderate hydronephrosis and UTI s/p cystoscopy, left ureteral stent placement. Colorblind 1. Ureteral stone (N20.1: Calculus of ureter) [facility] Consult on 06/15/23 CC left lower quadrant pain with nausea and vomiting, urinary incontinence, dysuria CT abdomen pelvis w con @ [facility] - 6 x 4 mm left proximal [...] Consider metabolic (more content not included)... Normal [facility] Comment on above: Result Comment: Elec tronically Signed By: Ronnie JOHNS, Keerthi Myers\.br\Date and Time Signed: 06/23/23 20:21 EST RAD - MISCon 06-17-2023 RAD - MISC [id number] #1.00TIFF [facility] Consultation Noteon 06-16-19 Consultation Note [id number] #1.00TIFF [facility] Operative Reporton Operative Report [id number] #1.00TIFF Normal [facility] MG MAMM SCREEN 3D MARCOS CADon 08-24-2022 MG MAMM SCREEN 3D MARCOS CAD Patient: JEANNETTE PORTER Exam Date: 08/24/2022 : 1945 Gender:F Ordering : DR ADARSH MANRIQUE M.D. Admission #: [id number] Family : Order #: [id number] CLICK HERE TO VIEW EXAM RADIOLOGY REPORT [...] at age 71. LOCATION: [facility] BREAST COMPOSITION: Heterogeneously dense,which may obscure small [...] LUMP SHOULD BE BIOPSIED. Dictated by: Kyara Talbot M.D. on 08/24/2022 at 12:06 Approved by: Kyara Talbot M.D. on 08/24/2022 at 12:10 Normal [facility] Vital Signs Date Time Vital Sign Value Performing Clinician Facility 06-20-2024 13:00-0500 Body height 154.9 cm Nolvia VILLALOBOS Work Phone: [facility] 06-20-2024 13:00-0500 Body mass index (BMI) [Ratio] 30.76 kg/m2 Nolvia VILLALOBOS Work Phone: [facility] 06-20-2024 13:00-0500 Body weight 73.85 kg Nolvia Hemmer PA Work Phone: [facility] 06-20-2024 13:00-0500 Diastolic blood pressure 76 mm[Hg] Nolvia Hemmer PA Work Phone: [facility] 06-20-2024 13:00-0500 Heart rate 63 /min Nolvia Hemmer PA Work Phone: [facility] 06-20-2024 13:00-0500 Respiratory rate 16 /min Nolvia Hemmer PA Work Phone: [facility] 06-20-2024 13:00-0500 SaO2% (BldA) [Mass fraction] 96 % Nolvia Hemmer PA Work Phone: [facility] 06-20-2024 13:00-0500 Systolic blood pressure 132 mm[Hg] Nolvia Hemmer PA Work Phone: [facility] 06-08-2024 09:35-0500 Body height 152.4 cm Adarsh Manrique II Work Phone: [facility] 06-08-2024 09:35-0500 Body mass index (BMI) [Ratio] 31.2 kg/m2 Adarsh Manrique II Work Phone: [facility] 06-08-2024 09:35-0500 Body weight 72.57 kg Adarsh Manrique II Work Phone: [facility] 03-13-2024 10:43-0400 Body height 154.9 cm Adarsh Manrique MD Work Phone: [facility] 03-13-2024 10:43-0400 Body mass index (BMI) [Ratio] 30.23 kg/m2 Adarsh Manrique MD Work Phone: [facility] 03-13-2024 10:43-0400 Body weight 72.58 kg Adarsh Manrique MD Work Phone: [facility] 03-13-2024 10:43-0400 Diastolic blood pressure 80 mm[Hg] Adarsh Manrique MD Work Phone: [facility] 03-13-2024 10:43-0400 Heart rate 76 /min Adarsh Manrique MD Work Phone: [facility] 03-13-2024 10:43-0400 SaO2% (BldA) [Mass fraction] 97 % Adarsh Manrique MD Work Phone: [facility] 03-13-2024 10:43-0400 Systolic blood pressure 132 mm[Hg] Adarsh Manrique MD Work Phone: [facility] 03-06-2024 10:28-0400 Body mass index (BMI) [Ratio] 30.31 kg/m2 Adarsh Manrique MD Work Phone: [facility] 03-06-2024 10:28-0400 Body weight 72.76 kg Adarsh Manrique MD Work Phone: [facility] 03-06-2024 10:28-0400 Diastolic blood pressure 90 mm[Hg] Adarsh Manrique MD Work Phone: [facility] 03-06-2024 10:28-0400 Heart rate 71 /min Adarsh Manrique MD Work Phone: [facility] 03-06-2024 10:28-0400 Respiratory rate 16 /min Adarsh Manrique MD Work Phone: [facility] 03-06-2024 10:28-0400 SaO2% (BldA) [Mass fraction] 97 % Adarsh Manrique MD Work Phone: [facility] 03-06-2024 10:28-0400 Systolic blood pressure 140 mm[Hg] Adarsh Manrique MD Work Phone: [facility] 02-14-2024 10:51-0400 Body height 154.9 cm Adarsh Manrique MD Work Phone: [facility] 02-14-2024 10:51-0400 Body mass index (BMI) [Ratio] 30.23 kg/m2 Adarsh Manrique MD Work Phone: [facility] 02-14-2024 10:51-0400 Body weight 72.58 kg Adarsh Manrique MD Work Phone: [facility] 02-14-2024 10:51-0400 Diastolic blood pressure 80 mm[Hg] Adarsh Manrique MD Work Phone: [facility] Comment on above: standing 134 84 02-14-2024 10:51-0400 Heart rate 79 /min Adarsh Manrique MD Work Phone: [facility] 02-14-2024 10:51-0400 SaO2% (BldA) [Mass fraction] 98 % Adarsh Manrique MD Work Phone: [facility] 02-14-2024 10:51-0400 Systolic blood pressure 138 mm[Hg] Adarsh Manrique MD Work Phone: [facility] Comment on above: standing 134 84 01-19-2024 10:17-0400 Diastolic blood pressure 48 mm[Hg] Keerthi Lue [facility] 01-19-2024 10:17-0400 Heart rate 73 /min Keerthi Lue [facility] 01-19-2024 10:17-0400 Respiratory rate 16 /min Keerthi Lue [facility] 01-19-2024 10:17-0400 Systolic blood pressure 128 mm[Hg] Keerthi Lue [facility] 07-20-2023 14:37-0500 Diastolic blood pressure 62 mm[Hg] Keerthi Lue [facility] 07-20-2023 14:37-0500 Systolic blood pressure 136 mm[Hg] Keerthi Lue [facility] 07-20-2023 14:36-0500 Heart rate 83 /min Keerthi Lue [facility] 07-20-2023 14:36-0500 SaO2% (BldA) [Mass fraction] 96 % Keerthi Lue [facility] 07-20-2023 14:36-0500 Diastolic blood pressure 80 mm[Hg] Keerthi Lue [facility] 07-20-2023 14:36-0500 Mean blood pressure 104 mm[Hg] Keerthi Lue [facility] 07-20-2023 14:36-0500 Systolic blood pressure 152 mm[Hg] Keerthi Lue [facility] 07-20-2023 14:35-0500 Respiratory rate 16 /min Keerthi Lue [facility] 07-20-2023 13:33-0500 Heart rate 77 /min Keerthi Lue [facility] 07-20-2023 13:33-0500 SaO2% (BldA) [Mass fraction] 93 % Keerthi Lue [facility] 07-20-2023 13:32-0500 Respiratory rate 16 /min Keerthi Lue [facility] 07-20-2023 13:31-0500 Diastolic blood pressure 66 mm[Hg] Keerthi Lue [facility] 07-20-2023 13:31-0500 Mean blood pressure 84 mm[Hg] Keerthi Lue [facility] 07-20-2023 13:31-0500 Systolic blood pressure 121 mm[Hg] Keerthi Lue [facility] 07-20-2023 13:27-0500 Body temperature 97.34 [degF] Keerthi Lue [facility] 07-20-2023 13:27-0500 Heart rate 72 /min Keerthi Lue [facility] 07-20-2023 13:27-0500 Mean blood pressure 80 mm[Hg] Keerthi Lue [facility] 07-20-2023 13:27-0500 Respiratory rate 16 /min Keerthi Lue [facility] 07-20-2023 13:27-0500 SaO2% (BldA) [Mass fraction] 94 % Keerthi Lue [facility] 07-20-2023 13:15-0500 Mean blood pressure 82 mm[Hg] Keerthi Lue [facility] 07-20-2023 13:15-0500 Respiratory rate 16 /min Keerthi Lue [facility] 07-20-2023 13:10-0500 Mean blood pressure 79 mm[Hg] Keerthi Lue [facility] 07-20-2023 13:10-0500 Respiratory rate 14 /min Keerthi Lue [facility] 07-20-2023 13:02-0500 Body temperature 97.16 [degF] Keerthi Lue [facility] 07-20-2023 12:55-0500 Respiratory rate 14 /min Keerthi Lue [facility] 07-20-2023 09:51-0500 Mean blood pressure 91 mm[Hg] Keerthi Lue [facility] 07-20-2023 09:49-0500 Body temperature 97.52 [degF] Keerthi Lue [facility] 07-15-2023 15:31-0500 Heart rate 65 /min Keerthi Lue [facility] 07-15-2023 15:31-0500 SaO2% (BldA) [Mass fraction] 96 % Keerthi Lue [facility] 07-15-2023 15:30-0500 Diastolic blood pressure 83 mm[Hg] Keerthi Lue [facility] 07-15-2023 15:30-0500 Mean blood pressure 100 mm[Hg] Keerthi Lue [facility] 07-15-2023 15:30-0500 Systolic blood pressure 136 mm[Hg] Keerthi Lue [facility] 06-23-2023 10:26-0500 Blood Pressure Location Keerthi Lue [facility] 06-23-2023 10:26-0500 Diastolic blood pressure 67 mm[Hg] Keerthi Lue [facility] 06-23-2023 10:26-0500 Heart rate 67 /min Keerthi Lue [facility] 06-23-2023 10:26-0500 Respiratory rate 16 /min Keerthi Lue [facility] 06-23-2023 10:26-0500 Systolic blood pressure 118 mm[Hg] Keerthi Lue [facility] Encounters Encounter Date Encounter Type Care Provider Facility Start: 01-24-2025 ambulatory Keerthi M. Lue Facility:[facility] Start: 06-20-2024 End: 06-20-2024 Willy VILLALOBOS Work Phone: [facility] Start: 06-20-2024 End: 06-20-2024 Willy VILLALOBOS Work Phone: [facility] Start: 06-20-2024 End: 06-20-2024 Office outpatient visit 25 minutes Nolvia Gomez PA Work Phone: [facility] Comment on above: Primary osteoarthrit is of left knee (Primary Dx); Pre-operative examination; Primary hypertension (CMS/HCC); Chronic obstructive pulmonary disease, unspecified (CMS/HCC); Essential (hemorrhagic) thrombocythemia (CMS/HCC); History of primary malignant neoplasm of left lung Start: 06-20-2024 End: 06-20-2024 Preprocedural examination done Novlia Gomez PA Work Phone: [facility] Start: 06-20-2024 End: 06-20-2024 ambulatory NOLVIA GOMEZ Not Available Start: 06-08-2024 End: 06-08-2024 ambulatory Adarsh Manrique II Work Phone: [facility] Work Phone: Start: 06-08-2024 End: 06-08-2024 Patient encounter procedure Adarsh Manrique II [facility] Work Phone: Start: 06-06-2024 End: 06-06-2024 Bamboo flowsheet Elham Morfin DO Work Phone: [facility] Start: 06-06-2024 End: 06-06-2024 Bamboo flowsheet Elham Morfin DO Work Phone: [facility] Start: 06-06-2024 End: 06-06-2024 ambulatory ELHAM MORFIN Not Available Start: 03-13-2024 End: 03-13-2024 Bamboo flowsheet Adarsh Manrique MD Work Phone: [facility] Start: 03-13-2024 End: 03-13-2024 Bamboo flowsheet Adarsh Manrique MD Work Phone: [facility] Start: 03-13-2024 End: 03-13-2024 Office outpatient visit 25 minutes Adarsh Manrique MD Work Phone: [facility] Comment on above: Migraine without aur a and without status migrainosus, not intractable (CMS/HCC) (Primary Dx); Primary hypertension (CMS/HCC); Ureteral stone; Kidney stones Start: 03-13-2024 End: 03-13-2024 ambulatory ADARSH MANRIQUE Not Available Start: 03-06-2024 End: 03-06-2024 Bamboo flowshitesh Manrique MD Work Phone: [facility] Start: 03-06-2024 End: 03-06-2024 Bamboo flowshitesh Manrique MD Work Phone: [facility] Start: 03-06-2024 End: 03-06-2024 Office outpatient visit 15 minutes Adarsh Manrique MD Work Phone: [facility] Comment on above: Migraine without aur a and without status migrainosus, not intractable (CMS/HCC) (Primary Dx); Primary hypertension (CMS/HCC); Flu vaccine need Start: 03-06-2024 End: 03-06-2024 ambulatory ADARSH MANRIQUE Not Available Start: 02-28-2024 End: 02-28-2024 ambulatory [facility] Start: 02-14-2024 End: 02-14-2024 Bamboo flowshitesh Manrique MD Work Phone: [facility] Start: 02-14-2024 End: 02-14-2024 Bamboo flowshitesh Manrique MD Work Phone: [facility] Start: 02-14-2024 End: 02-14-2024 Office outpatient visit 25 minutes Adarsh Manrique MD Work Phone: [facility] Comment on above: Migraine without aur a and without status migrainosus, not intractable (CMS/HCC) (Primary Dx); Primary hypertension (CMS/HCC); Personal history of kidney stones Start: 02-14-2024 End: 02-14-2024 ambulatory ADARSH MANRIQUE Not Available Start: 01-19-2024 End: 01-19-2024 ambulatory Keerthi Trujillo Facility:[facility] Start: 01-19-2024 End: 01-19-2024 Patient encounter procedure Keerthi MYina [facility] Start: 12-22-2023 End: 12-22-2023 ambulatory ADARSH Hopkins MANRIQUE Not Available Start: 11-18-2023 End: 11-18-2023 ambulatory ADARSH Hopkins MANRIQUE Not Available Start: 11-05-2023 End: 11-05-2023 ambulatory [facility] Start: 09-13-2023 End: 09-13-2023 ambulatory [facility] Start: 07-20-2023 End: 07-20-2023 Admission to same day surgery center Keerthi Caldwelle [facility] Start: 07-20-2023 End: 07-20-2023 ambulatory Keerthi M. Lue Facility:[facility] Start: 07-15-2023 End: 07-15-2023 ambulatory Keerthi M. Lue Facility:[facility] Start: 07-15-2023 End: 07-15-2023 Patient encounter procedure Keerthi M. Lue [facility] Start: 07-09-2023 End: 07-09-2023 ambulatory [facility] Start: 06-28-2023 End: 06-28-2023 ambulatory ADARSH Hopkins MANRIQUE Not Available Start: 06-23-2023 End: 06-23-2023 ambulatory Keerthi M. Lue [facility] Start: 06-23-2023 End: 06-23-2023 Patient encounter procedure Keerthi M. Lue [facility] Start: 06-15-2023 End: 06-15-2023 ambulatory Keerthi M. Lue Facility:CD:[id number] Start: 08-24-2022 End: 08-25-[address] ADARSH MANRIQUE Facility:[facility] Procedures Date Procedure Procedure Detail Performing Clinician Start: 06-08-2024 Plain radiography of pelvis Adarsh Manrique II Work Phone: Start: 06-08-2024 X-ray of both knees, four views Adarsh Manrique CHELSI Work Phone: Start: 06-06-2024 Computerized ophthal rodrigo imaging optic nerve Elham Morfin DO Work Phone: Start: 06-06-2024 End: 06-06-2024 Oph medical xm&eval compre new pt 1/> vst Primary open angle glaucoma (POAG) of left eye, mild stage (CMS/HCC) Elham Morfin DO Work Phone: Comment on above: 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, mild stage (CMS/HCC) (Primary Dx); Age-related nuclear cataract of left eye; Dry eyes; Eye globe prosthesis; Legal blindness, as defined in [place] Start: 07-20-2023 Cystoscopy and electrohydraulic lithotripsy of calculus of bladder Keerthi Lue Start: 06-15-2023 Cystoscopic insertio n of ureteric stent Keerthi Lue Start: 01-31-2021 Extracorporeal shock wave lithotripsy of calculus of kidney Keerthi Lue Biopsy of breast Keerthi Lue Colonoscopy Keerthi Lue Cystoscopy Keerthi Lue History of tonsillectomy Desirae hy Lue Lung cyst removal Keerthi Lue Plan of Treatment Date Care Activity Detail Author Start: 10-02-2024 End: 10-02-2024 Patient encounter procedure 10/02/2024 1:45 PM EDT Office Visit [facility] [address] [place] [phone] Elham Morfin, DO [address] [place] [address] [facility] Start: 06-20-2024 End: 06-20-2025 Basic metabolic 1998 panel - Serum or Plasma Basic metabolic panel Lab Routine Pre-operative examination Primary hypertension (CMS/HCC) Expected: 06/20/2024 (Approximate), Expires: 06/20/2025 [facility] Comment on above: Expected: 06/20/2024 (Approximate), Expires: 06/20/2025 Start: 06-20-2024 End: 06-20-2025 CBC panel - Blood by Automated count CBC Lab Routine Pre-operative examination Primary hypertension (CMS/HCC) Expected: 06/20/2024 (Approximate), Expires: 06/20/2025 [facility] Work Phone: Comment on above: Expected: 06/20/2024 (Approximate), Expires: 06/20/2025 Start: 06-20-2024 End: 06-20-2024 Patient encounter procedure 06/20/2024 1:00 PM EST Office Visit [facility] [address] [facility] [address] [place] [phone] Nolvia Gomez PA [address] [facility] [address] [place] [address] Arrived [facility] Comment on above: Arrived Start: 06-08-2024 MRSA Culture MRSA Culture [facility] Start: 06-08-2024 Methicillin resistan t Staphylococcus aureus [Presence] in Unspecified specimen by Organism specific culture [facility] Start: 06-08-2024 [facility] Start: 06-08-2024 Plain radiography of pelvis XR pelvis 1-2V [facility] Start: 06-08-2024 X-ray of both knees, four views XR knee BI 4V [facility] Start: 06-08-2024 XR Knee - bilateral 4 Views [facility] Start: 06-08-2024 XR Pelvis 1 or 2 Views [facility] Start: 06-06-2024 End: 06-06-2024 Patient encounter procedure 06/06/2024 1:45 PM EST Office Visit [facility] [address] [place] [phone] Elham Morfin, [address] [place] [address] Arrived [facility] Comment on above: Arrived Start: 04-24-2024 End: 04-24-2024 Patient encounter procedure 04/24/2024 3:00 PM EST Office Visit [facility] [address] [place] [address] Adarsh Manrique MD [address] [place] [address] [facility] Start: 03-13-2024 End: 03-13-2024 Patient encounter procedure [facility] Comment on above: Arrived Start: 03-06-2024 End: 03-06-2024 Patient encounter procedure [facility] Comment on above: Arrived Start: 02-14-2024 End: 02-14-2024 Patient encounter procedure 02/14/2024 11:00 AM EDT Office Visit [facility] [address] [place] [address] Adarsh Manrique MD [address] [place] [address] Arrived [facility] Comment on above: Arrived Start: 01-30-2024 Influenza vaccination Influenza Vacc ine (#1) [facility] Start: 03-19-2023 Medicare Annual Well ness (AWV) Medicare Annual Wellness (AWV) [facility] Cotinine [Mass/volum e] in Serum or Plasma [facility] Hemoglobin [Mass/vol ume] in Blood [facility] Nicotine [Mass/volum e] in Serum or Plasma [facility] Immunizations Immunization Date Immunization Notes Care Provider Fa cility 03-15-2024 SARS-COV-2 (COVID-19 ) vaccine, mRNA, spike protein, LNP, PF, 50 mcg/0.5 mL Elham Morfin DO Work Phone: [facility] 03-10-2024 Influenza, High-dose Seasonal, Quadrivalent, Preservative Free Adarsh Manrique MD Work Phone: [facility] 06-07-2023 SARS-COV-2 (COVID-19 ) vaccine, mRNA, spike protein, LNP, PF, 50 mcg/0.5 mL Adarsh Manrique MD Work Phone: [facility] 04-07-2023 influenza virus vacc ine, unspecified formulation Keerthi Lufelton [facility] 04-07-2023 Influenza, High-dose Seasonal, Quadrivalent, Preservative Free Adarsh Manrique MD Work Phone: [facility] 03-19-2022 influenza virus vacc ine, unspecified formulation Keerthi Ronnie [facility] 03-19-2022 Influenza, High-dose Seasonal, Quadrivalent, Preservative Free Adarsh Manrique MD Work Phone: [facility] 12-24-2021 SARS-CoV-2 mRNA (szbfduywqys-ozcz-wlkihy e) vaccine Keerthi Trujillo [facility] Comment on above: Result Comment: 2023: [id number] 05-01-2021 influenza virus vacc ine, unspecified formulation Keerthi Ronnie [facility] 05-01-2021 Pfizer Purple Cap SARS-CoV-2 Vaccination Adarsh Manrique MD Work Phone: [facility] 08-15-2020 SARS-CoV-2 (COVID-19 ) mRNA BNT-162b2 vax Keerthi Trujillo [facility] 07-29-2020 SARS-CoV-2 (COVID-19 ) mRNA-1273 vaccine Keerthi Lue [facility] 07-25-2020 SARS-CoV-2 (COVID-19 ) mRNA BNT-162b2 vax Keerthi Lue [facility] 07-01-2020 SARS-CoV-2 (COVID-19 ) mRNA-1273 vaccine Keerthi Lue [facility] 03-04-2020 influenza virus vacc ine, unspecified formulation Keerthi Lue [facility] 03-04-2020 Influenza, High-dose Seasonal, Quadrivalent, Preservative Free Adarsh Manrique MD Work Phone: [facility] 04-18-2019 influenza virus vacc ine, unspecified formulation Keerthi Lue [facility] 04-18-2019 Seasonal trivalent influenza vaccine, adjuvanted, preservative free Adarsh Manrique MD Work Phone: [facility] 06-15-2018 zoster vaccine recombinant Keerthi Lue [facility] 01-11-2018 influenza virus vacc ine, unspecified formulation Keerthi Lue [facility] 01-11-2018 seasonal influenza, intradermal, preservative free Adarsh Manrique MD Work Phone: [facility] 01-11-2018 zoster vaccine recombinant Keerthi Lue [facility] 03-01-2017 pneumococcal polysaccharide vaccine, 23 valent Keerthi Lue [facility] 02-17-2017 influenza virus vacc ine, unspecified formulation Keerthi Lue [facility] 02-17-2017 Influenza, High-dose Seasonal, Quadrivalent, Preservative Free Adarsh Manrique MD Work Phone: [facility] 04-14-2016 influenza, injectabl e, quadrivalent, preservative free Adarsh Manrique MD Work Phone: [facility] 09-02-2015 pneumococcal conjuga te vaccine, 13 valent Keerthi Lue [facility] 04-02-2015 influenza, injectabl e, quadrivalent, preservative free Adarsh Manrique MD Work Phone: [facility] 12-31-2014 zoster vaccine, live Keerthi L ue [facility] 09-06-2014 pneumococcal conjuga te vaccine, 13 valent Keerthi Lue [facility] 03-18-2014 influenza, seasonal, injectable Adarsh Manrique MD Work Phone: [facility] 03-07-2014 pneumococcal polysaccharide vaccine, 23 valent Adarsh Manrique MD Work Phone: [facility] 04-24-2013 influenza virus vacc ine, unspecified formulation Keerthi Lue [facility] 04-24-2013 influenza, seasonal, injectable Adarsh Manrique MD Work Phone: [facility] 02-28-2013 seasonal influenza, intradermal, preservative free Adarsh Manrique MD Work Phone: [facility] Payers Date Payer Category Payer Self-pay [id number] 2022 Private Health Insurance 2011 Medicare [id number] 1959 Medicare [id number] 1959 Private Health Insurance [id number] 1945 Unknown [id number] [id number]. 2.593 1946 Unknown [id number] 2.16.840.1.380575.3.579. 2.727 1946 Unknown [id number] 2.16.840.1.230524.3.579. 2.727 1946 Unknown [id number] 2.16.840.1.155706.3.579. 2.727 1946 Unknown [id number] 2.16.840.1.960918.3.579. 2.727 1946 Unknown [id number] 2.16.840.1.011561.3.579. 2.727 1946 Unknown [id number] 2.16.840.1.599620.3.579. 2.727 1946 Unknown [id number] 2.16.840.1.424622.3.579. 2.1259 1946 Unknown [id number] 2.16.840.1.682408.3.579. 2.1259 1946 Unknown [id number] 2.16.840.1.021967.3.579. 2.1259 1946 Unknown [id number] 2.16.840.1.236402.3.579. 2.1259 1946 Unknown [id number] 2.16.840.1.773405.3.579. 2.1259 1946 Unknown [id number] 2.16.840.1.261067.3.579. 2.1259 1946 Unknown [id number] 2.16.840.1.568411.3.579. 2.1259 1946 Unknown [id number] 2.16.840.1.880012.3.579. 2.1259 Unknown [id number] Conversion Insurance [id number] Unknown [id number] [id number]. 2.531 Social History Date Type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
--- NOTE | 2024-06-30 04:41 | ECG_ITS ---
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
[2024-06-30] MEDS: 0.9 % SODIUM CHLORIDE 500 ML IV (04:47)
[2024-06-30] MEDS: ONDANSETRON PF 4 MG/2 ML VIAL IV ×2 (04:47→06:34)
[2024-06-30 05:02] LABS: Basophils Absolute Auto 0.1 10^3/uL (0.0-0.1); Basophils Percent Auto 0.6 % (0.2-2.0); Eosinophils Absolute Auto 0.1 10^3/uL (0.0-0.7); Hematocrit 43.8 % (36.0-48.0); Hemoglobin 15.5 g/dL (12.0-16.0); Immature Granulocytes Abs Auto 0.06 10^3/uL (0.00-0.03); Immature Granulocytes Pct Auto 0.5 % (0.0-0.5); Lymphocytes Absolute Auto 1.7 10^3/uL (1.2-3.8); Lymphocytes Percent Auto 13.1 % (20.5-60.0); Mean Corpuscular HGB Conc 35.4 g/dL (29.9-35.2); Mean Corpuscular Hemoglobin 31.1 pg (26.7-34.0); Mean Corpuscular Volume 87.8 fL (81.0-99.0); Mean Platelet Volume 10.4 fL (9.5-13.5); Monocytes Absolute Auto 0.7 10^3/uL (0.3-0.8); Monocytes Percent Auto 5.8 % (1.7-12.0); Platelet Count 555 10^3/uL (150-450); Red Blood Count 4.99 10^6/uL (4.20-5.40); Red Cell Distribution Width 14.2 % (11.0-15.0); White Blood Count 12.6 10^3/uL (4.0-11.0)
[2024-06-30 05:20] LABS: Anion Gap 17.6; BUN Creatinine Ratio 22.8; Calcium 11.4 mg/dL (8.5-10.1); Carbon Dioxide 25.3 mmol/L (21.0-32.0); Chloride 100 mmol/L (98-107); Estimated GFR (African America 56 (>=60 mL/min/1.73m^2); Estimated GFR (Non-African Ame 46 (>=60 mL/min/1.73m^2); Glucose 135 mg/dL (74-106); Potassium 4.9 mmol/L (3.5-5.1); Sodium 138 mmol/L (136-145)
[2024-06-30 05:51] LABS: Alanine Aminotransferase 34 U/L (14-59); Albumin Globulin Ratio 1.1; Albumin Level 4.2 g/dL (3.4-5.0); Alkaline Phosphatase 97 U/L (46-116); Amylase 60 U/L (25-115); Aspartate Amino Transferase 38 U/L (15-37); Bilirubin Direct <0.1 mg/dL (0.0-0.2); Bilirubin Total 0.7 mg/dL (0.2-1.0); Globulin 3.9 g/dL; Total Protein 8.1 g/dL (6.4-8.2)
== END 2024-06-30 08:45 | disposition home or self-care (01) ==
PROVIDERS: Emergency Provider Emergency Medicine; PCP Internal Medicine
DX: R11.2 Nausea with vomiting, unspecified (principal); R19.7 Diarrhea, unspecified; Z90.2 Acquired absence of lung [part of]
CPT/HCPCS: 36415; 80048; 80076; 82150; 83690; 85025; 93005; 96374; 96376; 99284; J2405

== ENCOUNTER 2024-08-04 08:55 | Outpatient (OUT) | payer MEDICARE, OTHER, SELFPAY ==
--- OUTSIDE RECORDS SUMMARY | 2024-08-04 09:13 | XMS_ITS | CCD ---
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 Heparin therapeutic range (represented by Anti-Factor Xa activity of 0.2 - 0.4 U/mL) corresponds to PTT of 56.6 - 109.0 sec. INR Coag (PPP) [Relative time] 1.07 {INR} Invalid Interpretation Code [facility] Comment on above: Interpretive Data: I NR results are specifically intended to assess patients stabilized on long-term Anticoagulation therapy suggested INR s Less Intensive Anticoagulation 2.0 3.0 Conventional Range 3.0 4.5 PT Coag (PPP) [Time] 11.9 s Normal 9.4 - 1 2.5 second(s) [facility] Auto Coag Comment on [...] the same coagulation reagent and instrumentation as [facility]. Currently there are no coagulation studies available worldwide for children to 14 days, and no normal ranges. Consent for Treatmenton 07-01 Consent for Treatment [id number] #1.00TIFF Normal [facility] HEMATOLOGYOrdered By: SYSTEM SYSTEM on 07-15-2023 [...] Normal 80.0 - 100.0 fL Remisol Heme Crosby Absolute 0.5 E9/L Normal 0.2 - 1.0 [...] Coag (PPP) [Time] 35.5 second(s) Normal 25.1-36.5 [facility] Comment on above: Result Comment: Para [...] the same coagulation reagent and instrumentation as [facility]. Currently there are no coagulation studies available worldwide for children to 14 days, and no normal ranges. Heparin therapeutic range (represented by Anti-Factor Xa activity of 0.2 - 0.4 U/mL) corresponds to PTT of 56.6 - 109.0 sec. Performed By: #### 1 2144866, 6977790, 2280494, 64109949 ####[facility] [address] [place] [address] INR Coag (PPP) [Relative time] 1.07 {INR} Invalid Interpretation Code [facility] Comment on above: Result Comment: INR results are specifically intended to assess patients stabilized on long-term Anticoagulation therapy suggested INR?s ?Less Intensive Anticoagulation? 2.0 ? 3.0 Conventional Range 3.0 ? 4.5 Performed By: #### 1 3335261, 8631948, 7177492, 77249683 ####[facility] [address] [place] [address] PT Coag (PPP) [Time] 11.9 second(s) Normal 9.4-12.5 [facility] Comment on above: Result Comment: 15 [...] the same coagulation reagent and instrumentation as [facility]. Currently there are no coagulation studies available worldwide for children to 14 days, and no normal ranges. Performed By: #### 1 7131469, 8449089, 5795674, 96377194 ####[facility] [address] [place] [address] UA With Cult Reflexon 2023 Bacteria LM Ql (Urine sed) 3+ /HPF Abnormal Trace [facility] Comment on above: Performed By: #### 1 8586190, 5502698 #### [facility] [address] [place] [address] Bilirubin Ql (U) Negative Normal Negative [facility] Comment on above: Performed By: #### 1 3352806, 6194021 #### [facility] [address] [place] [address] Clarity (U) SL CLOUDY Invalid Interpretation Code [facility] Comment on above: Performed By: #### 1 9669786, 5903831 #### [facility] [address] [place] [address] Color (U) YELLOW Normal Yellow [facility] Comment on above: Performed By: #### 1 7274152, 3173088 #### [facility] [address] [place] [address] Epithelial cells.squamous LM.HPF (Urine sed) [#/Area] 0-2 Normal 0-2 [facility] Comment on above: Performed By: #### 1 8367863, 4471399 #### [facility] [address] [place] [address] Glucose Test strip (U) [Mass/Vol] Negative Normal Negative [facility] Comment on above: Performed By: #### 1 3746068, 1295935 #### [facility] [address] [place] [address] Hemoglobin Ql (U) 3+ Abnormal Negative [facility] Comment on above: Performed By: #### 1 6373542, 7552660 #### [facility] [address] [place] [address] Ketones (U) [Mass/Vol] Negative Normal Negative [facility] Comment on above: Performed By: #### 1 5412530, 0668831 #### [facility] [address] [place] [address] Marydel.plasma/Marydel .RBC (Bld) [Mass ratio] >75 Abnormal 0-3 [facility] Comment on above: Performed By: #### 1 4986708, 2607377 #### [facility] [address] [place] [address] Nitrite Ql (U) Positive Abnormal Negative [facility] Comment on above: Performed By: #### 1 5247099, 8717813 #### [facility] [address] [place] [address] pH (U) 6.0 [pH] Invalid Interpretation Code 5.0-9.0 [facility] Comment on above: Performed By: #### 1 9102245, 1501342 #### [facility] [address] [place] [address] Protein (U) [Mass/Vol] 1+ Abnormal Negative [facility] Comment on above: Performed By: #### 1 6385283, 7287497 #### [facility] [address] Specific gravity (U) [Rel density] 1.025 Invalid Interpretation Code 1.005-1.030 [facility] Comment on above: Performed By: #### 1 7028302, 3557648 #### [facility] [address] [place] [address] Type of Urine collection method Clean Catch Normal [facility] Comment on above: Performed By: #### 1 9909330, 4215863 #### [facility] [address] [place], [place] [address] Urobilinogen Qn (U) 0.2 {Starr'U}/dL Normal 0.0-1.0 [facility] Comment on above: Performed By: #### 1 4988247, 2370549 #### [facility] [address] [place], [place] [address] WBC Auto Ql (U) 2+ Abnormal Negative [facility] Comment on above: Performed By: #### 1 4488608, 1611072 #### [facility] [address] [place] [address] WBC LM.HPF (Urine sed) [#/Area] /[HPF] Abnormal 0-5 [facility] Comment on above: Performed By: #### 1 5122591, 2097899 #### [facility] [address] [place], [place] [address] URINALYSISOrdered By: Jairon Faye on 07-15-2023 Bacteria [...] PM) Normal Negative [facility] UA Auto SS Marydel.plasma/Marydel .RBC (Bld) [Mass ratio] >75 /HPF Invalid [...] [facility] UA Auto SS Urobilinogen Qn (U) 0.6548659 {Starr'U}/dL Normal 0.0 - 1.0 EU/dL [facility] [...] mGy = na DAP = na Normal [facility] eGFRon 07-15-2023 eGFR 58 mL/min/1.73 m2 Low >=59 [facility] Comment on above: Order Comment: Order added by Discern Expert. Performed By: #### 1 5212970, 0137108, 0014235, 77918988 ####[facility] [address] [place] [address] Outside Recordson 07-13-2023 Outside Records [id number] 5#1.00TIFF Normal [facility] Office Visiton 07-09-2023 Follow-up visit [id number] Jeannette Porter 1945 F Date Provider Department Center 07/09/2023 3848-CONNER JALLOH CARD [facility] No family history on file Level of Service:[address] [place] OFFICE/OUTPATIENT ESTABLISHED MOD MDM 30 MIN Normal [place] [facility] Reportson 06-30-2023 Lab Reports [id number] #1.00TIFF Normal [facility] ECG 12-Leadon 06-29-2023 ECG 12-Lead [id number] #1.00TIFF Normal [facility] Consent for Procedure/Surger yon 06-25-2023 Consent for Procedure/Surgery [id number] 2#1.00TIFF [facility] Reportson 06-24-2023 Lab Reports [id number] #1.00TIFF [facility] Screenson 06-24-2023 Screens [id number] 4#1.00TIFF [facility] Ambulatory Visit Summaryon 0 06-23-2023 Ambulatory Visit Summary JEANNETTE PORTER :1945 Visit Date:06/23/2023 Ambulatory Visit Instructions Your Diagnosis Kidney stone Your Care Team Attending Physician - Ronnie JOHNS, Keerthi Myers Primary Care Physician - ADARSH MANRIQUE MD This Is Your Medications List Contact [...] person to (more content not included)... Normal [facility] Patient Educationon 06-23-19 Patient Education Nephrology [...] Spinach (cooked), rhubarb, beets, sweet potatoes, and Japanese chard. ? Peanuts. ? Potato chips, thai fries, and baked potatoes with skin on. ? Nuts and nut products. ? Chocolate. ? If you regularly take a diuretic medicine, make sure to eat at least 1 or 2 servings of fruits or vegetables that are high in potassium each day. These include: ? Avocado. ? Banana. ? Sanford, prune, carrot, or tomato juice. ? Baked [...] fish oil, or vitamin B6. ? Take zkwj-tyh-bgoivgp and prescription medicines only as told by your health care provider. These include supplements. What foods sh (more content not included)... Normal [facility] Urology Office/Clinic Noteon 06-23-2023 Urology Office/Clinic Note Chief Complaint f/u to [facility] Consult *S/P Cysto/Lt Stent Placement HPI Staff PRW pt Last seen in our office 01/06/21 due to Kidney Stone & UTI. S/P Lt ESWL 02/27/21 by PRW Post op KUBs reviewed. No follow up. Pt is here today for a F/U to TB Consult on 06/15/23 CC left lower quadrant pain with nausea and vomiting, urinary incontinence, some dysuria, CT abdomen pelvis w con @ [facility] Cystoscopy , left stent placement @ [facility] 06/15/23 *Taking Tamsulosin 0.4 mg qd [...] E Coli Unable to locate PVR on [facility] system. Denies current flank pain. Denies [...] recurrent stones was seen in consultation at [facility] on 06/15/2023 with a 6 x 4 mm left proximal ureteral stone, moderate hydronephrosis and UTI s/p cystoscopy, left ureteral stent placement. Colorblind 1. Ureteral stone (N20.1: Calculus of ureter) [facility] Consult on 06/15/23 CC left lower quadrant pain with nausea and vomiting, urinary incontinence, dysuria CT abdomen pelvis w con @ [facility] - 6 x 4 mm left [...] Consider metabolic (more content not included)... Normal [facility] Comment on above: Result Comment: Elec tronically Signed By: Ronnie JOHNS, Keerthi Myers\.br\Date and Time Signed: 06/23/23 20:21 EST RAD - MISCon 06-17-2023 RAD - MISC [id number] #1.00TIFF Normal [facility] Consultation Noteon 06-16-19 Consultation Note [id number] #1.00TIFF Normal [facility] Operative Reporton Operative Report [id number] #1.00TIFF Normal [facility] MG MAMM SCREEN 3D MARCOS CADon 08-24-2022 MG MAMM SCREEN 3D MARCOS CAD Patient: JEANNETTE PORTER Exam Date: 08/24/2022 : 1945 Gender:F Ordering : DR ADARSH MANRIQUE M.D. Admission #: [id number] Family : Order #: [id number] CLICK HERE TO VIEW EXAM RADIOLOGY REPORT [...] mouth cancer at age 71. LOCATION: [facility] BREAST COMPOSITION: Heterogeneously dense,which may obscure [...] Kyara Dumont M.D. on 08/24/2022 at 12:10 [facility] Vital Signs Date Time Vital Sign Value Performing Clinician Facility 07-27-2024 10:08-0500 Body height 154.9 cm Nolvia Hemmer PA Work Phone: [facility] 07-27-2024 10:08-0500 Body mass index (BMI) [Ratio] 30.87 kg/m2 Nolvia Hemmer PA Work Phone: [facility] 07-27-2024 10:08-0500 Body weight 74.12 kg Nolvia Hemmer PA Work Phone: [facility] 07-27-2024 10:08-0500 Diastolic blood pressure 84 mm[Hg] Nolvia Hemmer PA Work Phone: [facility] 07-27-2024 10:08-0500 Heart rate 58 /min Nolvia Hemmer PA Work Phone: [facility] 07-27-2024 10:08-0500 Respiratory rate 16 /min Nolvia Hemmer PA Work Phone: [facility] 07-27-2024 10:08-0500 SaO2% (BldA) [Mass fraction] 97 % Nolvia Hemmer PA Work Phone: [facility] 07-27-2024 10:08-0500 Systolic blood pressure 136 mm[Hg] Nolvia Hemmer PA Work Phone: [facility] 06-20-2024 13:00-0500 Body height 154.9 cm Nolvia Hemmer PA Work Phone: [facility] 06-20-2024 13:00-0500 Body mass index (BMI) [Ratio] 30.76 kg/m2 Nolvia Hemmer PA Work Phone: [facility] 06-20-2024 13:00-0500 Body weight 73.85 kg Nolvia Hemmer PA Work Phone: [facility] 06-20-2024 13:00-0500 Diastolic blood pressure 76 mm[Hg] Nolvia Hemmer PA Work Phone: [facility] 06-20-2024 13:00-0500 Heart rate 63 /min Nolvia Hemmer PA Work Phone: [facility] 06-20-2024 13:00-0500 Respiratory rate 16 /min Nolvia Hemmer PA Work Phone: [facility] 06-20-2024 13:00-0500 SaO2% (BldA) [Mass fraction] 96 % Nolvia Hemmer PA Work Phone: [facility] 06-20-2024 13:00-0500 Systolic blood pressure 132 mm[Hg] Nolvia Hemmer PA Work Phone: [facility] 06-08-2024 09:35-0500 Body height 152.4 cm Adarsh Manrique II Work Phone: [facility] 06-08-2024 09:35-0500 Body mass index (BMI) [Ratio] 31.2 kg/m2 Adarsh Manrique II Work Phone: [facility] 06-08-2024 09:35-0500 Body weight 72.57 kg Adarsh Manrique II Work Phone: [facility] 03-13-2024 10:43-0400 Body height 154.9 cm Adarsh Manrique MD Work Phone: [facility] 03-13-2024 10:43-0400 Body mass index (BMI) [Ratio] 30.23 kg/m2 Adarsh Manrique MD Work Phone: [facility] 03-13-2024 10:43-0400 Body weight 72.58 kg Adarsh Manrique MD Work Phone: [facility] 03-13-2024 10:43-0400 Diastolic blood pressure 80 mm[Hg] Adarsh Manrique MD Work Phone: [facility] 03-13-2024 10:43-0400 Heart rate 76 /min Adarsh Manrique MD Work Phone: [facility] 03-13-2024 10:43-0400 SaO2% (BldA) [Mass fraction] 97 % Adarsh Manrique MD Work Phone: [facility] 03-13-2024 10:43-0400 Systolic blood pressure 132 mm[Hg] Adarsh Manrique MD Work Phone: [facility] 03-06-2024 10:28-0400 Body mass index (BMI) [Ratio] 30.31 kg/m2 Adarsh Manrique MD Work Phone: [facility] 03-06-2024 10:28-0400 Body weight 72.76 kg Adarsh Manrique MD Work Phone: [facility] 03-06-2024 10:28-0400 Diastolic blood pressure 90 mm[Hg] Adarsh Manrique MD Work Phone: [facility] 03-06-2024 10:28-0400 Heart rate 71 /min Adarsh Manrique MD Work Phone: [facility] 03-06-2024 10:28-0400 Respiratory rate 16 /min Adarsh Manrique MD Work Phone: [facility] 03-06-2024 10:28-0400 SaO2% (BldA) [Mass fraction] 97 % Adarsh Manrique MD Work Phone: [facility] 03-06-2024 10:28-0400 Systolic blood pressure 140 mm[Hg] Adarsh Manrique MD Work Phone: [facility] 02-14-2024 10:51-0400 Body height 154.9 cm Adarsh Manrique MD Work Phone: [facility] 02-14-2024 10:51-0400 Body mass index (BMI) [Ratio] 30.23 kg/m2 Adarsh Manrique MD Work Phone: [facility] 02-14-2024 10:51-0400 Body weight 72.58 kg Adarsh Manrique MD Work Phone: [facility] 02-14-2024 10:51-0400 Diastolic blood pressure 80 mm[Hg] Adarsh Manrique MD Work Phone: [facility] Comment on above: standing 134 84 02-14-2024 10:51-0400 Heart rate 79 /min Adarsh Manrique MD Work Phone: [facility] 02-14-2024 10:51-0400 SaO2% (BldA) [Mass fraction] 98 % Adarsh Manrique MD Work Phone: [facility] 02-14-2024 10:51-0400 Systolic blood pressure 138 mm[Hg] Adarsh Manriuqe MD Work Phone: [facility] Comment on above: standing 134 84 01-19-2024 10:17-0400 Diastolic blood pressure 48 mm[Hg] Keerthi Lue [facility] 01-19-2024 10:17-0400 Heart rate 73 /min Keerthi Lue [facility] 01-19-2024 10:17-0400 Respiratory rate 16 /min Keerthi Lue [facility] 01-19-2024 10:17-0400 Systolic blood pressure 128 mm[Hg] Keerthi Lue [facility] 07-20-2023 14:37-0500 Diastolic blood pressure 62 mm[Hg] Keerthi Lue [facility] 07-20-2023 14:37-0500 Systolic blood pressure 136 mm[Hg] Keerthi Lue [facility] 07-20-2023 14:36-0500 Heart rate 83 /min Keerthi Lue [facility] 07-20-2023 14:36-0500 SaO2% (BldA) [Mass fraction] 96 % Keerthi Lue [facility] 07-20-2023 14:36-0500 Diastolic blood pressure 80 mm[Hg] Keerthi Lue [facility] 07-20-2023 14:36-0500 Mean blood pressure 104 mm[Hg] Keerthi Lue [facility] 07-20-2023 14:36-0500 Systolic blood pressure 152 mm[Hg] Keerthi Lue [facility] 07-20-2023 14:35-0500 Respiratory rate 16 /min Keerthi Lue [facility] 07-20-2023 13:33-0500 Heart rate 77 /min Keerthi Lue [facility] 07-20-2023 13:33-0500 SaO2% (BldA) [Mass fraction] 93 % Keerthi Lue [facility] 07-20-2023 13:32-0500 Respiratory rate 16 /min Keerthi Lue [facility] 07-20-2023 13:31-0500 Diastolic blood pressure 66 mm[Hg] Keerthi Lue [facility] 07-20-2023 13:31-0500 Mean blood pressure 84 mm[Hg] Keerthi Lue [facility] 07-20-2023 13:31-0500 Systolic blood pressure 121 mm[Hg] Keerthi Lue [facility] 07-20-2023 13:27-0500 Body temperature 97.34 [degF] Keerthi Lue [facility] 07-20-2023 13:27-0500 Heart rate 72 /min Keerthi Lue [facility] 07-20-2023 13:27-0500 Mean blood pressure 80 mm[Hg] Keerthi Lue [facility] 07-20-2023 13:27-0500 Respiratory rate 16 /min Keerthi Lue [facility] 07-20-2023 13:27-0500 SaO2% (BldA) [Mass fraction] 94 % Keerthi Lue [facility] 07-20-2023 13:15-0500 Mean blood pressure 82 mm[Hg] Keerthi Lue [facility] 07-20-2023 13:15-0500 Respiratory rate 16 /min Keerthi Lue [facility] 07-20-2023 13:10-0500 Mean blood pressure 79 mm[Hg] Keerthi Lue [facility] 07-20-2023 13:10-0500 Respiratory rate 14 /min Keerthi Lue [facility] 07-20-2023 13:02-0500 Body temperature 97.16 [degF] Keerthi Lue [facility] 07-20-2023 12:55-0500 Respiratory rate 14 /min Keerthi Lue [facility] 07-20-2023 09:51-0500 Mean blood pressure 91 mm[Hg] Ekerthi Lue [facility] 07-20-2023 09:49-0500 Body temperature 97.52 [degF] Keerthi Lue [facility] 07-15-2023 15:31-0500 Heart rate 65 /min Keerthi Lue [facility] 07-15-2023 15:31-0500 SaO2% (BldA) [Mass fraction] 96 % Keerthi Lue [facility] 07-15-2023 15:30-0500 Diastolic blood pressure 83 mm[Hg] Keerthi Lue [facility] 07-15-2023 15:30-0500 Mean blood pressure 100 mm[Hg] Keerthi Lue [facility] 07-15-2023 15:30-0500 Systolic blood pressure 136 mm[Hg] Keerthi Lue [facility] 06-23-2023 10:26-0500 Blood Pressure Location Keerthi Lue [facility] 06-23-2023 10:26-0500 Diastolic blood pressure 67 mm[Hg] Keerthi Lue [facility] 06-23-2023 10:26-0500 Heart rate 67 /min Keerthi Lue [facility] 06-23-2023 10:26-0500 Respiratory rate 16 /min Keerthi Lue [facility] 06-23-2023 10:26-0500 Systolic blood pressure 118 mm[Hg] Keerthi Lue [facility] Encounters Encounter Date Encounter Type Care Provider Facility Start: 01-24-2025 ambulatory Keerthimadhav Trujillo Facility:[facility] Start: 07-27-2024 End: 07-27-2024 Bamboo flowshitesh VILLALOBOS Work Phone: [facility] Start: 07-27-2024 End: 07-27-2024 Bamboo flowshitesh VILLALOBOS Work Phone: [facility] Start: 07-27-2024 End: 07-27-2024 Patient encounter procedure Nolvia VILLALOBOS Work Phone: [facility] Comment on above: Medicare annual [facility] visit, subsequent (Primary Dx); ACP (advance care planning); Estrogen deficiency; Pure hypercholesterolemia, unspecified (CMS/HCC); Primary hypertension (CMS/HCC); CVD (cardiovascular disease) (CMS/HCC); Postoperative pain; Abnormal EKG; Pericardial effusion; Adrenal abnormality (CMS/HCC); Diverticulosis; GERD without esophagitis; Malignant neoplasm of abdomen (CMS/HCC); Abnormal finding present on diagnostic imaging of uterus; History of UTI; Kidney stones; Personal history of kidney stones; Stress incontinence, female; Contracture, left ankle; Osteopenia of multiple sites; Localized, primary osteoarthritis of ankle or foot, unspecified laterality; Primary osteoarthritis of left knee; Multinodular goiter (CMS/HCC); Thyroid nodule (CMS/HCC); Abnormal mammogram of right breast; Age-related nuclear cataract of left eye; Decreased estrogen level; Dry eyes; Eye globe prosthesis; History of primary malignant neoplasm of left lung; Impaired mobility and activities of daily living; Legal blindness, as defined in [place]; Meniere's disease of both ears; Migraine without aura and without status migrainosus, not intractable (CMS/HCC); Primary open angle glaucoma (POAG) of left eye, mild stage (CMS/HCC); S/P pneumonectomy; Tumorlet; Unsteadiness on feet; Vestibular disequilibrium involving both inner ears Start: 07-27-2024 End: 07-27-2024 ambulatory NOLVIA GOMEZ Not Available Start: 07-03-2024 End: 07-03-2024 ambulatory [facility] Start: 06-20-2024 End: 06-20-2024 Bamboo melissa VILLALOBOS Work Phone: [facility] Start: 06-20-2024 End: 06-20-2024 Bamboo flowshitesh VILLALOBOS Work Phone: [facility] Start: 06-20-2024 End: 06-20-2024 Office outpatient visit 25 minutes Nolvia VILLALOBOS Work Phone: [facility] Comment on above: Primary osteoarthrit is of left knee (Primary Dx); Pre-operative examination; Primary hypertension (CMS/HCC); Chronic obstructive pulmonary disease, unspecified (CMS/HCC); Essential (hemorrhagic) thrombocythemia (CMS/HCC); History of primary malignant neoplasm of left lung Start: 06-20-2024 End: 06-20-2024 Preprocedural examination done Nolvia VILLALOBOS Work Phone: [facility] Start: 06-20-2024 End: 06-20-2024 ambulatory NOLVIA GOMEZ Not Available Start: 06-08-2024 End: 06-08-2024 ambulatory Adarsh Manrique II Work Phone: [facility] Work Phone: Start: 06-08-2024 End: 06-08-2024 Patient encounter procedure Adarsh Manrique II Work Phone: [facility] Work Phone: Start: 06-06-2024 End: 06-06-2024 Bamboo flowsheet Elham Castillo DO Work Phone: [facility] Start: 06-06-2024 End: 06-06-2024 Bamboo flowsheet Elham Castillo DO Work Phone: [facility] Start: 06-06-2024 End: 06-06-2024 ambulatory ELHAM CASTILLO Not Available Start: 03-13-2024 End: 03-13-2024 Bamboo [...] Not Available Start: 02-28-2024 End: 02-28-2024 ambulatory [facility] Start: 02-14-2024 End: 02-14-2024 Bamboo flowshitesh Manrique [...] Available Start: 01-19-2024 End: 01-19-2024 ambulatory Keerthi M. Lue Facility:[facility] Start: 01-19-2024 End: 01-19-2024 Patient encounter procedure [facility] Start: 12-22-2023 End: 12-22-2023 ambulatory ADARSH Hopkins MANRIQUE Not Available Start: 11-18-2023 End: 11-18-2023 ambulatory ADARSH Hopkins MANRIQUE Not Available Start: 11-05-2023 End: 11-05-2023 ambulatory [facility] Start: 09-13-2023 End: 09-13-2023 ambulatory [facility] Start: 07-20-2023 End: 07-20-2023 Admission to same day surgery center Keerthi [facility]dw[facility] Start: 07-20-2023 End: 07-20-2023 ambulatory Keerthi M. Lue Facility:[facility] Start: 07-15-2023 End: 07-15-2023 ambulatory Keerthi M. Lue Facility:[facility] Start: 07-15-2023 End: 07-15-2023 Patient encounter procedure Keerthi M. Lue [facility] Start: 07-09-2023 End: 07-09-2023 ambulatory [facility] Start: 06-23-2023 End: 06-23-2023 ambulatory Keerthi M. Lue Facility:[facility] Start: 06-23-2023 End: 06-23-2023 Patient encounter procedure [facility] Start: 06-15-2023 End: 06-15-2023 ambulatory Keerthi M. Lue Facility:[id number] Start: 08-24-2022 End: 08-25-[address] ADARSH MANRIQUE Facility:[facility] Procedures Date Procedure Procedure Detail Performing Clinician Start: 06-08-2024 Plain radiography of pelvis Adarsh Manrique II Work Phone: Start: 06-08-2024 X-ray of both knees, four views Adarsh Manrique II Work Phone: Start: 06-06-2024 Computerized ophthal rodrigo imaging optic nerve Elham Castillo DO Work Phone: Start: 06-06-2024 End: 06-06-2024 Oph medical xm&eval compre new pt 1/> vst Primary open angle glaucoma (POAG) of left eye, mild stage (CMS/HCC) Elham Castillo DO Work Phone: Comment on above: Primary [...] Treatment Date Care Activity Detail Author Start: 07-27-2025 Medicare Annual Well ness (AWV) Medicare Annual Wellness (AWV) [facility] Start: 01-31-2025 End: 01-31-2025 Patient encounter procedure 01/31/2025 10:00 AM EDT Office Visit [facility] [address] [place] [address] Adarsh Manrique MD [address] [place] [address] [facility] Start: 10-02-2024 End: 10-02-2024 Patient encounter procedure 10/02/2024 1:45 PM EDT Office Visit [facility] [address] [place] [phone] Elham Castillo DO [address] [place] [address] [facility] Start: 07-27-2024 End: 07-27-2025 DXA Skeletal system Views for bone density DEXA bone density Imaging Routine Estrogen deficiency Expected: 07/27/2024, Expires: 07/27/2025 [facility] Work Phone: Comment on above: Expected: 07/27/2024 , Expires: 07/27/2025 Start: 07-27-2024 End: 07-27-2024 Patient encounter procedure 07/27/2024 10:00 AM EST Office Visit [facility] [address] [facility] [address] [place] [address] Nolvia Gomez PA [address] [facility] [address] [place] [address] Arrived [facility] Comment on above: Arrived Start: 06-20-2024 End: 06-20-2025 Basic metabolic 1998 panel - Serum or Plasma Basic metabolic panel Lab Routine Pre-operative examination Primary hypertension (CMS/HCC) Expected: 06/20/2024 (Approximate), Expires: 06/20/2025 [facility] Comment on above: Expected: 06/20/2024 (Approximate), Expires: 06/20/2025 Start: 06-20-2024 End: 06-20-2025 CBC panel - Blood by Automated count CBC Lab Routine Pre-operative examination Primary hypertension (CMS/HCC) Expected: 06/20/2024 (Approximate), Expires: 06/20/2025 [facility] Work Phone: Comment on above: Expected: 06/20/2024 (Approximate), Expires: 06/20/2025 Start: 06-20-2024 End: 06-20-2024 Patient encounter procedure 06/20/2024 1:00 PM EST Office Visit [facility] [address] [facility] [address] [place] [phone] Nolvia Gomez PA [address] [facility] [address] [place] [address] Arrived [facility] Comment on above: Arrived Start: 06-08-2024 MRSA Culture MRSA Culture [facility] Start: 06-08-2024 Methicillin resistan t Staphylococcus aureus [Presence] in Unspecified specimen by Organism specific culture [facility] Start: 06-08-[address] [facility] Start: 06-08-2024 Plain radiography of pelvis XR pelvis 1-2V [facility] Start: 06-08-2024 X-ray of both knees, four views XR knee BI 4V [facility] Start: 06-08-2024 XR Knee - bilateral [address] [facility] Start: 06-08-2024 XR Pelvis 1 or [address] [facility] Start: 06-06-2024 End: 06-06-2024 Patient encounter procedure 06/06/2024 1:45 PM EST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 Patient Education Nephrology Dietary Guidelines [...] ? 8 oz (237 mL) of milk, ircykru-wjbatvbrjbtn-uzuzd milk, and calcium-fortifiedfruit juice. Calcium-fortified means that [...] Spinach (cooked), rhubarb, beets, sweet potatoes, and Japanese chard. ? Peanuts. ? Potato chips, thai fries, and baked potatoes with skin on. ? Nuts and nut products. ? Chocolate. ? If you regularly take a diuretic medicine, make sure to eat at least 1 or 2 servings of fruits or vegetables that are high in potassium each day. These include: ? Avocado. ? Banana. ? Sanford, prune, carrot, or tomato juice. ? Baked [...] fish oil, or vitamin B6. ? Take luqx-rrk-luuklmd and prescription medicines only as told by your health care provider. These include suppleme (more content not included)... [facility] 11-05-2023 Note Cardiology Follow Up Progress [...] as needed Conner Jalloh MD Interventional Cardiology [facility] 09-13-2023 Note Cardiology Follow Up Progress Note [...] as needed Conner Jalloh MD Interventional Cardiology [facility] 02-20-2024 Hospital Discharge instructions Patient Education 07/20/2023 13:43:33 Post Op Patient Instructions - FT (Custom) (CUSTOM) 07/20/2023 13:16:12 Fbib-Sqha-kd Utereroscopy,Lithotripsy, Stone Extraction, Stent Placement (CUSTOM) [facility] [place], [place] Post-operative Instructions for Ureteroscopy, Laser Lithotripsy, [...] stent, if present. AZO can be purchased xapl-zvf-iglmxuv for burning with urination/urinary pain. This will [...] up with Dr. Trujillo in 6 months [phone] Follow Up Care 07/12/2023 12:56:00 With:Keerthi Trujillo Address:Unknown When: Unknown Comments:Office to call to schedule your follow up in 6 mths. Obtain renal US in 6 wks, office to call with results [facility] 07-20-2023 Evaluation + Plan note Extrac benigno from: Title:EU - L URS, laser lith o, stone extraction, stent exchange Author:Keerthi Trujillo MD Date:07/20/23 Impression and Plan Diagnosis Kidney stones ([id number]-LR N20.0, Discharge, Medical). Ureteral stone ([id number]-WS N20.1, Working, Medical). Diagnosis Kidney stones ([id number] N20.0, Discharge, Medical). Extracted from: Title:Home Basic PRE Author:Home Anesthfelton siology (DO)Pola Date:07/20/23 Plan [place] [employer]esthesi[employer] (ASA) physical status classification: Class III. Anesthetic Preoperative Plan: Anesthesia General. Diagnostic Tests Pending * Calculi Analysis Urinary 07/20/23 [facility]02-13-2024 Note [id number] [facility] 07-09-2023 NoteCardiology Follow Up Progress Note Chief [...] as needed Conner Jalloh MD Interventional Cardiology [facility] Addendum 07/16/2023: Echocardiogram obtained and reviewed. Normal LVEF, no regional wall motion abnormalities. Patient does have a small pericardial effusion. This should not preclude her from having surgery. Given no symptoms and given ability to complete greater than 4 METS of activity, patient is moderate risk for surgery. She may proceed without additional cardiac testing (more content not included)...[place]02-09-2024 NotePatient here for surgery clearance prior to [...] Systems All other systems reviewed and are negative.[place] 06-23-2023 Hospital Discharge instructions Patient Education 06/23/2023 11:12:17 [...] include: ?8 oz (237 mL) of milk, qyribpc-qlopvburbndq-zplvg milk, and calcium- fortifiedfruit juice. Calcium-fortified means [...] ?Spinach (cooked), rhubarb, beets, sweet potatoes, and Japanese chard. ?Peanuts. ?Potato chips, thai fries, and baked potatoes with skin on. ?Nuts and nut products. ?Chocolate. If you regularly take a diuretic medicine, make sure to eat at least 1 or 2 servings of fruits or vegetables that are high in potassium each day. These include: ?Avocado. ?Banana. ?Sanford, prune, carrot, or tomato juice. ?Baked potato. [...] magnesium, fish oil, or vitamin B6. Take nqpn-hve-kfuypdl and prescription medicines only as told by [...] Casseroles. Pizza. Lasagna. Frozen meals. Potato chips. Comoran fries. The items listed above may not [...] provider. Document Revised: 08/27/2022 Document Reviewed: 08/27/2022 [employer] Patient Education 2022 [employer]. Follow Up Care 06/16/2023 11:07:45 With:Keerthi Trujillo MD, URL, URO Address: When: Unknown Comments:Schedule stone procedure [facility] evaluation + Plan note No data available for this section [facility] evaluation + Plan note Future Appointments Appointment Date:07/20/2023 12:45:00 PM Scheduled Provider: Location:[facility] Appointment Type:Surgery FT Diagnostic Tests Pending * [facility]ments Appointment Date:01/24/2025 09:45:00 AM Scheduled Provider:Keerthi Trujillo MD Location:[facility] Appointment Type:URO Office Visit [facility] evaluation noteNo assessment information available [facility] Work Phone: Evaluation note* Diagnosis Migraine without aura and without status migrainosus, not intractable (CMS/HCC)- Primary Primary hypertension (CMS/HCC) Unspecified essential hypertension Flu vaccine need [facility] Diagnosis Migraine without aura and without status migrainosus, not intractable (CMS/HCC)- Primary Primary hypertension (CMS/HCC) Unspecified essential hypertension Ureteral stone Calculus of ureter Kidney stones Calculus of kidney documented in this encounter [facility]* Diagnosis Migraine without aura and without status migrainosus, not intractable (CMS/HCC)- Primary Primary hypertension (CMS/HCC) Unspecified essential hypertension Personal history of kidney stones Personal history of urinary calculi documented in this encounter [facility]* Diagnosis Primary open angle glaucoma (POAG) of left eye, mild stage (CMS/HCC)- Primary Age-related nuclear cataract of left eye Dry eyes Unspecified tear film insufficiency Eye globe prosthesis Legal blindness, as defined in [place] documented in this encounter [facility]* Diagnosis Primary osteoarthritis of left knee- Primary Pre-operative examination Unspecified pre-operative examination Primary hypertension (CMS/HCC) Unspecified essential hypertension Chronic obstructive pulmonary disease, unspecified (CMS/HCC) Essential (hemorrhagic) thrombocythemia (CMS/HCC) History of primary malignant neoplasm of left lung documented in this encounter [facility]* Diagnosis Medicare annual wellness visit, subsequent- Primary ACP (advance care planning) Other specified counseling Estrogen deficiency Other ovarian failure Pure hypercholesterolemia, unspecified (CMS/HCC) Primary hypertension (CMS/HCC) Unspecified essential hypertension CVD (cardiovascular disease) (CMS/HCC) Unspecified cardiovascular disease Postoperative pain Other acute postoperative pain Abnormal EKG Nonspecific abnormal electrocardiogram (ECG) (EKG) Pericardial effusion Unspecified disease of pericardium Adrenal abnormality (CMS/HCC) Diverticulosis Diverticulosis of colon (without mention of hemorrhage) GERD without esophagitis Esophageal reflux Malignant neoplasm of abdomen (CMS/HCC) Malignant neoplasm of abdomen Abnormal finding present on diagnostic imaging of uterus History of UTI Kidney stones Calculus of kidney Personal history of kidney stones Personal history of urinary calculi Stress incontinence, female Contracture, left ankle Osteopenia of multiple sites Localized, primary osteoarthritis of ankle or foot, unspecified laterality Primary osteoarthritis of left knee Multinodular goiter (CMS/HCC) Nontoxic multinodular goiter Thyroid nodule (CMS/HCC) Nontoxic uninodular goiter Abnormal mammogram of right breast Age-related nuclear cataract of left eye Decreased estrogen level Dry eyes Unspecified tear film insufficiency 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 Impaired mobility and activities of daily living Legal blindness, as defined in [place] Meniere's disease of both ears Migraine without aura and without status migrainosus, not intractable (CMS/HCC) Primary open angle glaucoma (POAG) of left eye, mild stage (CMS/HCC) S/P pneumonectomy Acquired absence of organ, lung Tumorlet Unsteadiness on feet Vestibular disequilibrium involving both inner ears [facility] No data available for this section [facility] No data available for this section [facility] [employer] Summary Purpose Family History No Family History [...] Referral Specialty Diagnoses / Procedures Referred By Ingrid t Referred To Contact Diagnoses Migraine without aura and without status migrainosus, not intractable (CMS/HCC) Adarsh Manrique MD [address] [place] [address] Referral ID Status Reason Start Date Expiration Date V isits Requested Visits Authorized [id number] Pending Review 02/14/2024 08/12/2024 1 1 Chief [...] DATE CREATED AUTHOR AUTHOR'S ORGANIZ ATION 01/21/2024 [facility] [place] [facility] DATE CREATED AUTHOR AUTHOR'S ORGANIZ ATION 06/17/2024 [facility] DATE CREATED AUTHOR AUTHOR'S ORGANIZ ATION 06/22/2024 [facility] DATE CREATED AUTHOR AUTHOR'S ORGANIZ ATION 07/07/2024 [facility] DATE CREATED AUTHOR AUTHOR'S ORGANIZ ATION 07/29/2024 [facility] EPIC Goals (unrecognized section [...] team informatio n (unrecognized section and content) Pilot Can Router Relationship Specialty Start Date End Date Adarsh Manrique MD [address] [place] [address] PCP - General Internal Medicine 10/23/22 Adarsh Manrique MD [address] [place] [address] PCP - ACO Reach 10/22/22 Pilot Can Router Relationship Specialty Start Date End Date Adarsh Manrique MD [address] [place] [address] PCP - General Internal Medicine 10/23/22 Adarsh Manrique MD [address] [place] [address] PCP - ACO Reach 10/22/22 Pilot Can Router Relationship Specialty Start Date End Date Adarsh Manrique MD [address] [place] [address] PCP - General Internal Medicine 10/23/22 Adarsh Manrique MD [address] [place] [address] PCP - ACO Reach 10/22/22 Pilot Can Router Relationship Specialty Start Date End Date Adarsh Manrique MD [address] [place] [address] PCP - General Internal Medicine 10/23/22 Adarsh Manrique MD [address] [place] [address] PCP - ACO Reach 10/22/22 Pilot Can Router Relationship Specialty Start Date End Date Adarsh Manrique MD [address] [place] [address] PCP - General Internal Medicine 10/23/22 Adarsh Manrique MD [address] [place] [address] PCP - ACO Reach 10/22/22 Pilot Can Router Relationship Specialty Start Date End Date Adarsh Manrique MD [address] [place] [address] PCP - General Internal Medicine 10/23/22 Adarsh Manrique MD [address] [place] [address] PCP - ACO Reach 10/22/22 Pilot Can Router Relationship Specialty Start Date End Date Adarsh Manrique MD [address] [place] [address] PCP - General Internal Medicine 10/23/22 Adarsh Manrique MD [address] [place] [address] PCP - ACO Reach 10/22/22 Pilot Can Router Relationship Specialty Start Date End Date Adarsh Manrique MD [address] [place] [address] PCP - General Internal Medicine 10/23/22 Adarsh Manrique MD [address] [facility] [address] [place] [address] PCP - ACO Reach 10/22/22 Team Status: [...] Attending Provider Active Start: June 08, 2024 Pilot Can Router Relationship Specialty Start Date End Date Adarsh Manrique MD [address] [facility] [address] [place] [address] PCP - General Internal Medicine 10/23/22 Adarsh Manrique MD [address] [facility] [address] [place] [address] PCP - ACO Reach 10/22/22 Pilot Can Router Relationship Specialty Start Date End Date Adarsh Manrique MD [address] [facility] [address] [place] [address] PCP - General Internal Medicine 10/23/22 Adarsh Manrique MD [address] [facility] [address] [place] [address] PCP - ACO Reach 10/22/22 Pilot Can Router Relationship Specialty Start Date End Date Adarsh Manrique MD [address] [facility] [address] [place] [address] PCP - General Internal Medicine 10/23/22 Adarsh Manrique MD [address] [facility] [address] [place] [address] PCP - ACO Reach 10/22/22 Pilot Can Router Relationship Specialty Start Date End Date Adarsh Manrique MD [address] [facility] [address] [place] [address] PCP - General Internal Medicine 10/23/22 Adarsh Manrique MD [address] [facility] [address] [place] [address] PCP - ACO Reach 10/22/22 Reason for Visit (unrecogniz ed section and content) Reason Comments Hypertension Migraine Reason Comments discuss treatment options Pt states urol yuridiay advised her to discuss changing topamax due [...] BE BASED ON THE PRIMARY CLINICAL RECORDS. [employer] provides no warranty or guarantee of the accuracy or completeness of information in this document.
== END 2024-08-04 08:56 | disposition home or self-care (01) ==
LOC: RAD 08:56
PROVIDERS: PCP Internal Medicine; Visit Provider Physician Assistant
DX: E28.39 Other primary ovarian failure (principal)
CPT/HCPCS: 77080

== ENCOUNTER 2024-08-05 08:48 | Outpatient (OUT) | payer MEDICARE, OTHER, SELFPAY ==
--- OUTSIDE RECORDS SUMMARY | 2024-08-05 08:51 | XMS_ITS | CCD ---
Author Organization [facility] Care Team Providers Care Decorating Supervisor Name Role Phone DR ADARSH MANRIQUE Admitting Unavailable DALILA, DR AGUILAR Attending Unavailable DALILA, DR AGUILAR Primary Care Unavailable DALILA, DR AGUILAR Consulting Unavailable DAHIANA, DR KYARA Hightower Consulting Unavailable ADARSH MANRIQUE Primary Care Physician [phone] Keerthi Trujillo MYina Referring Unavailable Lue, Keerthi [...] Care Provider Demarcus Barahona MD Attending Provider Demarcus Barahona II Attending UnavailDemarcus Muller II [...] source) Nitrofurantoin Drug Allergy [facility] Repository (19 sources) Nitrofurantoin; Translations: [nitrofurantoin] Drug Allergy 9 [facility] (1 source) NITROFURANTOIN MONOHYD/M-CRYST; Translations: [NITROFURANTOIN MONOHYD/M-CRYST] Propensity to adverse reactions to drug (disorder) 4 [facility] Repository Medications Current Medications Medication Drug [...] Active Start: 09-29-2018 take 1 tablet by [facility] once daily Cholecalciferol (Vitamin D3) (Vitamin [...] Active Start: 09-29-2018 take 1 capsule by [facility] once daily Omeprazole 20 mg Capsule,Delayed Release(Dr/Ec) Active 20 MG PO Daily September 28, 2018 11:00pm sulfamethoxazole 800 mg / trimethoprim 160 mg oral tablet (1 source) Dihydrofolate Reductase Inhibitor Antibacterial, Sulfonamide Antimicrobial Start: 07-16-2023 End: 07-21-2023 Bactrim D.S. 800 mg-160 mg Tab 1 tab(s), Oral, BID for 5 day(s), 10 tab(s), Refill(s) 0, [facility], 154, cm, 07/15/23 15:50:00 EST, Height/Length Dosing, [...] 2018 11:00pm September 13, 2018 1:29pm [facility] 8.6 mg oral tablet (3 sources) Start: [...] cardiovascular system; Translations: [Atherosclerotic heart disease of [place] coronary artery without angina pectoris] Onset: 10-29-2022 [...] Range Facility Office Visiton 07-03-2024 Follow-up visit [id number] Jeannette Porter 1945 F Date Provider Department Center 07/03/2024 Maliha8-CONNER JALLOH CARD [facility] Family History Problem Relation Age of Onset Other Father Family Status - Relation Status Age at Father Level of Service:73857 ME OFFICE/OUTPATIENT ESTABLISHED MOD MDM 30 MIN Normal [facility] BASIC METABOLIC PANELon 06-01 BUN/CREATININE RATIO SEE NOTE: Normal 6-22 [facility] Comment on above: Order Comment: FASTI NG:NO FASTING: NO Result Comment: Not Reported: BUN and Creatinine are within reference range. Performed By: #### 1 016, 1759 #### [facility] [place] [address] Inspector Welded Parts: Anthony Batista MD Calcium [Mass/Vol] 10.2 mg/dL Normal 8.6-10.4 [facility] Comment on above: Order Comment: FASTI NG:NO FASTING: NO Performed By: #### 1 016, 175 #### [facility] [place] [address] [employer] Welded [employer]: Anthony Batista MD Chloride [Moles/Vol] 105 mmol/L Normal 98-110 [facility] t [facility] Comment on above: Order Comment: FASTI NG:NO FASTING: NO Performed By: #### 1 016, 175 #### [facility] [place] [address] [employer]: Anthony Batista MD CO2 [Moles/Vol] 24 mmol/L Normal 20-32 [facility] Comment on above: Order Comment: FASTI NG:NO FASTING: NO Performed By: #### 1 016, 175 #### [facility] [place] [address] [employer]ded [employer]: Anthony Batista MD Creatinine [Mass/Vol] 0.69 mg/dL Normal 0.60-1.00 [facility] Food[facility] Comment on above: Order Comment: FASTI NG:NO FASTING: NO Performed By: #### 1 0165, 1759 #### [facility] [place] [address] [employer]: Anthony Batista MD GFR/1.73 sq M.predicted among non-blacks MDRD (S/P/Bld) [Vol rate/Area] 89 mL/min/{1.73_m2} Normal > OR = 60 [facility] Comment on above: Order Comment: FASTI NG:NO FASTING: NO Performed By: #### 1 0165, 1759 #### [facility] [place] [address] [employer]ded [employer]: Anthony Batista MD Glucose [Mass/Vol] 97 mg/dL Normal 65-139 [facility] Comment on above: Order Comment: FASTI NG:NO FASTING: NO Result Comment: Non-fasting reference interval Performed By: #### 1 0165, 1759 #### [facility] [place] [address] Inspector [employer]: Anthony Batista MD Potassium [Moles/Vol] 4.5 mmol/L Normal 3.5-5.3 [employer] Comment on above: Order Comment: FASTI NG:NO FASTING: NO Performed By: #### 1 0165, 1759 #### [facility] [place] [address] [employer]: Anthony Batista MD Sodium [Moles/Vol] 137 mmol/L Normal 135-146 [facility] Comment on above: Order Comment: FASTI NG:NO FASTING: NO Performed By: #### 1 0165, 1759 #### [facility] [place] [address] Inspector [employer]: Anthony Batista MD Urea nitrogen [Mass/Vol] 23 mg/dL Normal 7-25 [facility] Comment on above: Order Comment: FASTI NG:NO FASTING: NO Performed By: #### 1 0165, 175 #### [facility] [place] [address] [employer]: Anthony Batista MD CBC (H/H, RBC, INDICES, WBC, PLT)on 06-21-2024 Erythrocyte distribution width (RBC) [Ratio] 13.3 % Normal 11.0-15.0 [facility] Comment on above: Performed By: #### 1 016, 175 #### [facility] [place] [address] [employer]: Anthony Batista MD Hematocrit (Bld) [Volume fraction] 41.7 % Normal 35.0-45.0 [facility] Comment on above: Performed By: #### 1 016, 175 #### [facility] [address], [address] [place] [address] Inspector Welded Parts: Anthoyn Batista MD Hemoglobin (Bld) [Mass/Vol] 13.7 g/dL Normal 11.7-15.5 [facility] Comment on above: Performed By: #### 1 016, 175 #### [facility] [place] [address] Inspector [employer]ded Parts: Anthony Batista MD MCH (RBC) [Entitic mass] 29.5 pg Normal 27.0-33.0 [facility] Comment on above: Performed By: #### 1 016, 175 #### [facility] [place] [address] Inspector [employer]ded [employer]: Anthony Batista MD MCHC (RBC) [Mass/Vol] 32.9 g/dL Normal 32.0-36.[address] [facility] Comment on above: Result Comment: For adults, a slight decrease in the calculated MCHC value (in the range of 30 to 32 g/dL) is most likely not clinically significant; however, it should be interpreted with caution in correlation with other red cell parameters and the patient's clinical condition. Performed By: #### 1 0165, 1759 #### [facility] of [address], [address] [place] [address] Inspector Welded Parts: Anthony Batista MD MCV (RBC) [Entitic vol] 89.9 fL Normal 80.0-100.0 [facility] Comment on above: Performed By: #### 1 0165, 1759 #### [facility] of [address], [address] [place] [address] Inspector Welded Parts: Anthony Batista MD Platelet mean volume (Bld) [Entitic vol] 10.4 fL Normal 7.5-12.5 [facility] Comment on above: Performed By: #### 1 0165, 1759 #### [facility] of [address], [address] [place] [address] Inspector Welded Parts: Anthony Batista MD Platelets (Bld) [#/Vol] 453 10*3/uL High 140-400 [facility] Comment on above: Performed By: #### 1 0165, 175 #### [facility] of [address], [address] [place] [address] Inspector Welded Parts: Anthony Batista MD RBC (Bld) [#/Vol] 4.64 10*6/uL Normal 3.80-5.10 [facility] Comment on above: Performed By: #### 1 0165, 175 #### [facility] of [place] [address] Inspector Welded [employer]: Anthony Batista MD WBC (Bld) [#/Vol] 6.2 10*3/uL Normal 3.8-10.8 [facility] Comment on above: Performed By: #### 1 0165, 1759 #### [facility] of [place] [address] Inspector Welded [employer]: Anthony Batista MD A1C with Estimated Average Carmen agudelo 06-08-2024 Glucose [Mass/Vol] 105 mg/dL Normal [facility] Comment on above: Result Comment: PERF ORMED BY: [place] [address] PATHOLOGIST [employer]OT[employer] SALESPERSON DWAINE DAILEY M.D. Performed By: #### C UMRSA, A1C WTH eA, ALB, HGB, [id number] #### [place] [address] [place] #### NICOTINE #### [facility] , HbA1c (Bld) [Mass fraction] 5.3 % Normal 4.3-5.6 [facility] Comment on above: Result Comment: Incr eased risk for diabetes: 5.7 - 6.4 diabetes: >6.4 glycemic control for adults with diabetes: <7.0 Performed By: #### C UMRSA, A1C WTH eA, ALB, HGB, [id number] #### [address] #### NICOTINE #### [facility] , Albumin Levelon 06-08-2024 Albumin [Mass/Vol] 4.2 g/dL Normal 3.5-5.7 [facility] Comment on above: Performed By: #### C UMRSA, A1C WTH eA, ALB, HGB, [id number] #### [place] [address] [place] #### NICOTINE #### [facility] , Albumin [Mass/volume] in Ser um or Plasma by Bromocresol green (BCG) dye binding methoOrdered By: Demarcus Barahona on 06-08-2024 Albumin BCG dye [Mass/Vol] Albumin [Mass/volume] in Serum or Plasma by Bromocresol green (BCG) dye binding metho 3.5-5.7 [facility] Blood estimated average gluc ose determination by estimation from glycated hemoglobinOrdered By: Demarcus Barahona on 06-08-2024 Average glucose Estimated from glycated hemoglobin (Bld) [Mass/Vol] Glucose mean value [Mass/volume] in Blood Estimated from glycated hemoglobin [facility] Hemoglobinon 06-08-2024 Hemoglobin (Bld) [Mass/Vol] 13.4 g/dL Normal 11.8-15.4 [facility] Comment on above: Result Comment: PERF ORMED BY: [place] [address] PATHOLOGIST [employer] SALESPERSON DWAINE DAILEY M.D. Performed By: #### C UMRSA, A1C WTH eA, ALB, HGB, [id number] #### [address] #### NICOTINE #### [facility] , Hemoglobin A1c/Hemoglobin.to dilma in BloodOrdered By: Demarcus Barahona on 06-08-2024 HbA1c (Bld) [Mass fraction] Hemoglobin A1c percentage 4.3-5.6 [facility] Comment on above: Increased risk for d iabetes: 5.7 - 6.4diabetes: >6.4glycemic control for adults with diabetes: <7.0 Hemoglobin [Mass/volume] in BloodOrdered By: Demarcus Barahona on 06-08-2024 Hemoglobin (Bld) [Mass/Vol] Hemoglobin [Mass/volume] in Blood 11.8-15.4 [facility] MRSA Cultureon 06-08-2024 MRSA Culture MRSA Culture Results No MRSA Isolated 2 Days PERFORMED BY: [place] [address] PATHOLOGIST HOTEL [employer]PPL[employer] SALESPERSON DWAINE DAILEY M.D. Normal [facility] Comment on above: Performed By: #### C UMRSA, A1C WTH eA, ALB, HGB, [id number] #### [address] #### NICOTINE #### [facility] , Nicotine/Cotinine Bloodon Cotinine, Blood <1.0 Normal . The [facility] Comment on above: Result Comment: This test was developed and its performance characteristics determined by [facility]. It has not been cleared or approved by the Food and Drug Administration. Cotinine levels greater than 20.0 are consistent with the use of tobacco or tobacco cessation products. Performed at: [facility] [id number] Plant Breeder Scientist: Leilani Hilliard MD, Phone: [phone] PERFORMED BY: [place] [address] PATHOLOGIST HOTEL SUPPL[employer] SALESPERSON DWAINE DAILEY M.D. Performed By: #### C UMRSA, A1C WTH eA, ALB, HGB, [id number] #### [address] #### NICOTINE #### [facility] , Nicotine, Blood <1.0 Normal . The [facility] Comment on above: Result Comment: This test was developed and its performance characteristics determined by [facility]. It has not been cleared or approved by the Food and Drug Administration. Nicotine levels greater than 2.0 are consistent with the use of tobacco or tobacco cessation products. Performed By: #### C UMRSA, A1C WTH eA, ALB, HGB, [id number] #### [address] #### NICOTINE #### [facility] , Vitamin D 25 Hydroxy Totalon 06-08-2024 Vitamin D 25 Hydroxy Total 59.2 ng/mL Normal 30-100 [facility] Comment on above: Result Comment: NALLELY MIN D STATUS 25(OH)VITAMIN D RANGE (ng/mL) Deficient <20 Insufficient 20 to <30 Sufficient 30 to 100 Reference: Ramsey MF,Baldemar NC, Domenic BENITEZ, et al. Evaluation,treatment, and prevention of vitamin D deficiency; an Endocrine Society clinical practice guideline. JCEM. 2010; 96(7):1911-30. PERFORMED BY: [place] [address] PATHOLOGIST HOTEL [employer] SALESPERSON DWAINE DAILEY M.D. Performed By: #### C UMRSA, A1C WTH eA, ALB, HGB, [id number] #### [place] [address] [place] #### NICOTINE #### [facility] , Vitamin D+Metabolites [Mass/ volume] in Serum or PlasmaOrdered By: Demarcus Barahona on 06-08-2024 Vitamin D+Metabolites [Mass/Vol] Vitamin D+Metabolites [Mass/volume] in Serum or Plasma 30-100 [facility] Comment on above: VITAMIN D STATUS 25( OH)VITAMIN D RANGE (ng/mL) Deficient <20 Insufficient 20 to <30Sufficient 30 to 100Reference: Ramsey MF,Baldemar NC, Domenic BENITEZ, et al. Evaluation,treatment, and prevention of vitamin D deficiency; an Endocrine Society clinical practice guideline. JCEM. 2010; 96(7):1911-30. X-ray reportOrdered By: Buddy Bray on 06-08-2024 Study report [facility] [address] [place] [address] XRay Report Signed Patient: Jeannette Porter MR#: [id number] : 1945 Acct:[id number] Age/Sex: 79 / F ADM Date: 5 Loc: [facility] Room: Type: [facility] Attending Dr: Demarcus Barahona II, MD Copies to: Demarcus Barahona MD~ Ordering Provider: Demarcus Barahona MD Date of Service: 06/08/24 XR/XR pelvis 1-2V: M25.561 - Pain in right knee ([id number]) XR/XR knee BI 4V: M25.561 - Pain [...] of the hips. Moderatespurring left sacral joints. Logofuqb-kh-fhmwjy there are changes lower lumbar spine. Right knee: Severe lateral compartment degenerative changes. Rvpr-hn-wrylvtvw medial compartment degenerative changes. Moderate patellofemoral compartment degenerative changes. Left knee: Severe lateral compartment degenerative changes. Smyd-mx-xhdajebs medial compartment degenerative changes. Moderate patellofemoral compartment degenerative changes. XR/XR pelvis 1-2V IMPRESSION: NO ACUTE BONY FINDINGS. TRICOMPARTMENTAL DEGENERATIVE CHANGES OF THE BILATERAL KNEES AND DEGENERATIVE CHANGES OF THE HIPS AND PELVIS. Impression dictated by: Hang Bray M.D.06/08/2024 10:31 AM Dictation Location: [place] [address] Transcribed By: [facility] 06/08/24 1031 Dictated By: Hang Bray MD 06/08/24 1027 Signed By: 06/08/24 1031 [facility] Work Phone: XR knee BI 4Von 06-08-2024 XR knee BI 4V [facility] [address] [place] [address] XRay Report Signed Patient: Jeannette Porter MR#: [id number] : 1945 Acct:[id number] Age/Sex: 79 / F ADM Date: 06/08/24 Loc: [facility] Room: Type: [facility] Attending Dr: Demarcus Barahona II, MD Copies to: Demarcus Barahona MD Ordering Provider: Demarcus Barahona MD Date of Service: 06/08/24 XR/XR pelvis 1-2V: M25.561 - Pain in right knee ([id number]) XR/XR knee BI 4V: M25.561 - Pain [...] the hips. Moderate spurring left sacral joints. Sdiuvyyn-yy-htndrr there are changes lower lumbar spine. Right knee: Severe lateral compartment degenerative changes. Jkoo-rd-krqjfuwg medial compartment degenerative changes. Moderate patellofemoral compartment degenerative changes. Left knee: Severe lateral compartment degenerative changes. Qdtz-hz-drzdknjh medial compartment degenerative changes. Moderate patellofemoral compartment degenerative changes. XR/XR pelvis 1-2V IMPRESSION: NO ACUTE BONY FINDINGS. TRICOMPARTMENTAL DEGENERATIVE CHANGES OF THE BILATERAL KNEES AND DEGENERATIVE CHANGES OF THE HIPS AND PELVIS. Impression dictated by: Hang Bray M.D.06/08/2024 10:31 AM Dictation Location: [place] [address] Transcribed By: [facility] 06/08/24 1031 Dictated By: Hang Bray MD 06/08/24 1027 Signed By: 06/08/24 1031 Normal [facility] Ophthalmic OCT panelon 06-06 [facility] Left Eye Images reviewed and comparison made to baseline, Images reviewed. To assess optic nerve function and for use in future follow-up. Reliability: good and adequate. 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 Worsening. [facility] Study observation (narrative) [facility] Office Visiton 02-28-2024 Follow-up visit [id number] Jeannette Porter 1945 F Date Provider Department Center 02/28/2024 Maliha8-CONNER JALLOH STEVEN Figueredo Family History Problem Relation Age of Onset Other Father Family Status - Relation Status Age at Father Level of Service:64356 ME OFFICE/OUTPATIENT ESTABLISHED LOW MDM 20 MIN Normal [facility] Reminderson 01-19-2024 Reminders Reminders - From: Carleen [...] ) Other: PROVIDER RELATED REMINDER:_ ( ) Lacquer Sizer ( ) Call Pharmacy ( ) Call Lab ( ) Other: Special Instructions:_ Comments:_ Normal [facility] Urology Office/Clinic Noteon 01-19-2024 Urology [...] inactivated 04/07/2023 (more content not included)... Normal [facility] Comment on above: Result Comment: Elec tronically Signed By: Keerthi Trujillo MD\.br\Date and Time Signed: 01/19/24 11:07 EDT\.br\Electronically Co-Signed By: Carleen Truong\.br\Date and Time Co-Signed: 01/19/24 10:52 EDT Office Visiton 11-05-2023 Follow-up visit [id number] Jeannette Porter 1945 F Date Provider Department Center 11/05/2023 CONNER CAMPBELL Family History Problem Relation Age of Onset Other Father Family Status - Relation Status Age at Father Level of Service:25924 ME OFFICE/OUTPATIENT ESTABLISHED MOD MDM 30 MIN Normal [facility] RAD - Ultrasound Reporton RAD - Ultrasound Report [id number] #1.00TIFF [facility] RAD - Ultrasound Reporton RAD - Ultrasound Report [id number] #1.00TIFF [facility] Office Visiton 09-13-2023 Follow-up visit [id number] Jeannette Porter 1945 F Date Provider Department Center 09/13/2023 CONNER CAMPBELL Family History Problem Relation Age of Onset Other Father Family Status - Relation Status Age at Father Level of Service:90411 ME OFFICE/OUTPATIENT ESTABLISHED MOD MDM 30 MIN Normal [facility] Orders Onlyon 09-13-2023 Orders Only [id number] Jeannette Porter 1945 F Date Provider Department Center 09/13/2023 CUBA CHAND [facility] Family History Problem Relation Age of Onset Other Father Family Status - Relation Status Age at Father Normal [facility] Calculus Analysison 07-27-19 24 Calcium oxalate dihydrate Infrared spectroscopy (Stone) [Mass fraction] 40 % Invalid Interpretation Code [facility] Comment on above: Performed By: #### 1 [id number] #### [facility] [address] [place] [address] Calcium oxalate monohydrate (Stone) [Mass fraction] 10 % Invalid Interpretation Code [facility] Comment on above: Performed By: #### 1 [id number] #### [facility] [address] [place] [address] Calculus analysis [Interp] Comment Invalid Interpretation Code [facility] Comment on above: Result Comment: Calc ium phosphate (hydroxyl form) includes hydroxyapatite, amorphous calcium phosphate, and whitlockite. Hydroxyapatite is the most common of the calcium phosphate salts found in human kidney stones. Performed By: #### 1 [id number] #### [facility] [address] [place] [address] Color (Stone) Brown Invalid Interpretation Code [facility] Comment on above: Performed By: #### 1 [id number] #### [facility] [address] [place] [address] Composition Comment Invalid Interpretation Code [facility] Comment on above: Result Comment: Perc entage (Represents the % composition) Performed By: #### 1 [id number] #### [facility] [address] [place] [address] Disclaimer: Comment Invalid Interpretation Code [facility] Comment on above: Result Comment: This test was developed and its performance characteristics determined by [employer]. It has not been cleared or approved by the Food and Drug Administration. Performed at: [facility] [address] [id number] JENNIFER Landeros Performed By: #### 1 [id number] #### [facility] [address] [place] [address] Hydroxyapatite: 50 % Invalid Interpretation Code [facility] Comment on above: Performed By: #### 1 [id number] #### [facility] [address] [place] [address] Laboratory comment Sanjeev (Report) Comment Invalid Interpretation Code [facility] Comment on above: Result Comment: Phys ician questions regarding Calculi Analysis contact [facility] at: [phone]. Performed By: #### 1 [id number] #### [facility] [address] [place] [address] Please Note: Comment Invalid Interpretation Code [facility] Comment on above: Result Comment: Calc jose report will follow via computer, mail or sr. consultant delivery. Performed By: #### 1 [id number] #### [facility] [address] [place] [address] Size (Stone) [Entitic vol] 5x3 Invalid Interpretation Code [facility] Comment on above: Result Comment: Mult iple pieces received. Dimensions of the largest piece reported. Performed By: #### 1 [id number] #### [facility] [address] [place] [address] Specimen source subject Nom Comment Invalid Interpretation Code [facility] Comment on above: Result Comment: Left Kidney Performed By: #### 1 [id number] #### [facility] [address] [place] [address] Stone Photo Comment Invalid Interpretation Code [facility] Comment on above: Result Comment: Phot ograph will follow under a separate cover Performed By: #### 1 [id number] #### [facility] [address] [place] [address] Weight (Stone) 48 mg Invalid Interpretation Code [facility] Comment on above: Performed By: #### 1 [id number] #### [facility] [address] [place] [address] Physician Orderon 07-26-2023 Physician Order [id number] #1.00TIFF [facility] IntraOperative Documentson 0 07-23-2023 IntraOperative Documents [id number] 9#1.00TIFF [facility] Postoperative Documentson Postoperative Documents [id number] #1.00TIFF [facility] Progress Note-Physicianon Progress Note-Physician Patient: JEANNETTE PORTER Age: 78 years Sex: Female : 1945 Associated Diagnoses: None Author: MD Akins Ahmad F Postoperative Information Postoperative disposition: Postoperative disposition: To PACU. Optimetrix number: Optimetrix number [id number]. Anesthetic utilized: General. Health Status Allergies: Allergic [...] when meets criteria ( To home ). [facility] Comment on above: Result Comment: Elec tronically Signed By: MD Akins Ahmad F\.br\Date and Time Signed: 07/23/23 07:59 EST Main OR Intraoperative Recor don 07-22-2023 Main OR Intraoperative Record IntraOp Document Type FT Summary Primary Physician: Keerthi Trujillo MD Finalized Date/Time: 07/22/23 08:25:02 Pt. Name: JEANNETTE PORTER /Sex: 1945 Female Med Rec #: [id number] Physician: Keerthi Trujillo MD Financial #: [id number] Pt. Type: A Room/Bed: [facility]/01 Admit/Disch: 07/20/23 09:32:34 - 07/20/23 14:35:00 Institution: [...] [place]osa Role Performed Anesthesiologist Surgeon - Primary Montessori Toddler Teacher - Primary Contact Worker Time In 07/20/23 11:56:00 07/20/23 11:56:00 07/20/23 12:20:00 Time Out 07/20/23 13:00:00 07/20/23 13:00:00 07/20/23 13:00:00 Procedure CYSTOSCOPY RETROGRADE CYSTOSCOPY RETROGRADE CYSTOSCOPY RETROGRADE STENT INSERTION(Left), STENT INSERTION(Left), STENT INSERTION(Left), CYSTOSCOPY W/ HOMIUM CYSTOSCOPY W/ HOMIUM CYSTOSCOPY W/ HOMIUM LASER(Left) LASER(Left) LASER(Left) Comments DR BHAT SUPERVISING. OUT OF ROOM [id number] Last Modified By: Verenice Sheikh Kelsie E Burgderfer, Kelsie E 07/20/23 13:06:03 07/20/23 13:06:03 07/20/23 13:06:03 Entry 4 Entry 5 Entry 6 Case Attendee Anand SINGLETON, Lyly Díaz RN, Marielena Luciano Role Performed Scrub - Primary Montessori Toddler Teacher - Relief Scrub - Relief Time In [...] Case Attendee Don MADDEN, Adarsh Harmon DNP, HILAD, N. Role Performed Social Science Research Assistant COPY CAMERA OPERATOR Time In 07/20/23 12:05:00 07/20/23 11:56:00 Time Out 07/20/23 13:00:00 07/20/23 12:20:00 Procedure CYSTOSCOPY RETROGRADE CYSTOSCOPY RETROGRADE STENT INSERTION(Left), STENT INSERTION(Left), CYSTOSCOPY W/ HOMIUM CYSTOSCOPY W/ HOMIUM LASER(Left) LASER(Left) Comments LUNCH RELIEF Last Modified By: Verenice Sheikh Kelsie E 07/20/23 13:06:03 07/20/23 13:06:03 General Comments: SKINNY BARTLETT, RIKY JONES, ALSO IN ATTENDANCE. ADDIS CASTELLONcorn detasseler Protocols FT Pre-Care Text: Implements protective measures [...] Out Ronnie JOHNS, Anand Kaur Given Participants NOVELTY MAKER, Arjun Nayak RN, Don Narayan, Eden Whiting [...] 2 - Clean (more content not included)... [facility] Consent for Anesthesiaon Consent for Anesthesia [id number] 1#1.00TIFF [facility] Discharge Instructionson Discharge Instructions [id number] 0#1.00TIFF [facility] IntraOperative Documentson 0 07-21-2023 IntraOperative Documents [id number] 8#1.00TIFF [facility] IntraOperative Documents [id number] 1#1.00TIFF [facility] Preoperative Documentson Preoperative Documents [id number] 4#1.00TIFF [facility] XR Urography Retrograde Left on 07-21-2023 [...] Kasi Morgan MD Transcribed by: VAUGHN Technologist: DPR Technical Comments Radiation Dose: Ka,r in mGy = 3.00 DAP = 228.01 [facility] Consent for Procedure/Surger yon 07-20-2023 Consent for Procedure/Surgery [id number] 6#1.00TIFF [facility] Consent for Treatmenton 07-02 Consent for Treatment [id number] #1.00TIFF [facility] Consultation Noteon 07-20-19 Consultation Note [id number] #1.00TIFF [facility] Discharge Instructionson Discharge Instructions JEANNETTE PORTER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 from: Title:EU - L URS, laser lith o, stone extraction, stent exchange Author:Keerthi Trujillo MD Date:07/20/23 Impression and Plan Diagnosis Kidney stones (ORN50-OM N20.0, Discharge, Medical). Ureteral stone (CNL10-QC N20.1, Working, Medical). Diagnosis Kidney stones (NIM18-IU N20.0, Discharge, Medical). Extracted from: Title:Home Basic PRE Author:Home Anesthfelton siology (DO)Pola Date:07/20/23 Plan [place] [employer] Anesthesiologists (ASA) physical status classification: Class III. Anesthetic Preoperative Plan: Anesthesia General. Diagnostic Tests Pending * Calculi Analysis Urinary 07/20/23 [facility]02-13-2024 Note [id number] [facility] 07-09-2023 NoteCardiology Follow Up Progress Note Chief [...] as needed Conner Jalloh MD Interventional Cardiology [facility] Addendum 07/16/2023: Echocardiogram obtained and reviewed. Normal LVEF, no regional wall motion abnormalities. Patient does have a small pericardial effusion. This should not preclude her from having surgery. Given no symptoms and given ability to complete greater than 4 METS of activity, patient is moderate risk for surgery. She may proceed without additional cardiac testing (more content not included)...[facility]02-09-2024 NotePatient here for surgery clearance prior to [...] Systems All other systems reviewed and are negative.[facility] 06-23-2023 Hospital Discharge instructions Patient Education 06/23/2023 [...] include: ?8 oz (237 mL) of milk, rthjlml-lpiiboycawrw-xueqr milk, and calcium- fortifiedfruit juice. Calcium-fortified means [...] ?Spinach (cooked), rhubarb, beets, sweet potatoes, and Mosotho chard. ?Peanuts. ?Potato chips, guyanese fries, and baked potatoes with skin on. ?Nuts and nut products. ?Chocolate. If you regularly take a diuretic medicine, make sure to eat at least 1 or 2 servings of fruits or vegetables that are high in potassium each day. These include: ?Avocado. ?Banana. ?[place], prune, carrot, or tomato juice. ?Baked potato. [...] magnesium, fish oil, or vitamin B6. Take llfm-nbw-aytutyo and prescription medicines only as told by [...] Casseroles. Pizza. Lasagna. Frozen meals. Potato chips. Tristanian fries. The items listed above may not [...] provider. Document Revised: 08/27/2022 Document Reviewed: 08/27/2022 [employer] Patient Education 2022 [employer]. Follow Up Care 06/16/2023 11:07:45 With:Keerthi Trujillo MD, URL, URO Address: When: Unknown Comments:Schedule stone procedure [facility] evaluation + Plan note No data available for this section [facility] evaluation + Plan note Future Appointments Appointment Date:07/20/2023 12:45:00 PM Scheduled Provider: Location:[facility] Appointment Type:Surgery FT Diagnostic Tests Pending * Urine Culture [facility]23 [facility] Future Appointments Appointment Date:01/24/2025 09:45:00 AM Scheduled Provider:Keerthi Trujillo MD Location:[facility] Appointment Type:URO Office Visit [facility] evaluation noteNo assessment information available [facility] Work Phone: Evaluation note* Diagnosis Migraine [...] Calculus of kidney [facility] Diagnosis Migraine without aura and without status migrainosus, not intractable (CMS/HCC)- Primary Primary hypertension (CMS/HCC) Unspecified essential hypertension Personal history of kidney stones Personal history of urinary calculi [facility] Diagnosis Primary open angle glaucoma (POAG) of left eye, mild stage (CMS/HCC)- Primary Age-related nuclear cataract of left eye Dry eyes Unspecified tear film insufficiency Eye globe prosthesis Legal blindness, as defined in [place] documented [facility] Diagnosis Primary osteoarthritis of left knee- Primary Pre-operative examination Unspecified pre-operative examination Primary hypertension (CMS/HCC) Unspecified essential hypertension Chronic obstructive pulmonary disease, unspecified (CMS/HCC) Essential (hemorrhagic) thrombocythemia (CMS/HCC) History of primary malignant neoplasm of left lung [facility] Diagnosis Medicare annual wellness visit, [...] instructions No data available for this section [facility] No data available for this section [facility] Tilt Summary Purpose Family History No Family History [...] migrainosus, not intractable (CMS/HCC) Adarsh Manrique MD [address] [place] [address] Referral ID Status Reason Start Date Expiration Date V isits Requested Visits Authorized [id number] Pending Review 02/14/2024 08/12/2024 1 1 Chief [...] DATE CREATED AUTHOR AUTHOR'S ORGANIZ ATION 01/21/2024 [facility] DATE CREATED AUTHOR AUTHOR'S ORGANIZ ATION 06/17/2024 [facility] DATE CREATED AUTHOR AUTHOR'S ORGANIZ ATION 06/22/2024 [facility] DATE CREATED AUTHOR AUTHOR'S ORGANIZ ATION 07/07/2024 [facility] DATE CREATED AUTHOR AUTHOR'S ORGANIZ ATION 07/29/2024 [facility] d[facility] Specialists EPIC Goals (unrecognized section [...] team informatio n (unrecognized section and content) Decorating Supervisor Relationship Specialty Start Date End Date Adarsh Manrique MD [address] [place] [address] PCP - General Internal Medicine 10/23/22 Adarsh Manrique MD [address] [place] [address] PCP - ACO Reach 10/22/22 Decorating Supervisor Relationship Specialty Start Date End Date Adarsh Manrique MD [address] [place] [address] PCP - General Internal Medicine 10/23/22 Adarsh Manrique MD [address] [place] [address] PCP - ACO Reach 10/22/22 Decorating Supervisor Relationship Specialty Start Date End Date Adarsh Manrique MD [address] [place] [address] PCP - General Internal Medicine 10/23/22 Adarsh Manrique MD [address] [place] [address] PCP - ACO Reach 10/22/22 Decorating Supervisor Relationship Specialty Start Date End Date Adarsh Manrique MD [address] [place] [address] PCP - General Internal Medicine 10/23/22 Adarsh Manrique MD [address] [place] [address] PCP - ACO Reach 10/22/22 Decorating Supervisor Relationship Specialty Start Date End Date Adarsh Manrique MD [address] [place] [address] PCP - General Internal Medicine 10/23/22 Adrash Manrique MD [address] [place] [address] PCP - ACO Reach 10/22/22 Decorating Supervisor Relationship Specialty Start Date End Date Adarsh Manrique MD [address] [place] [address] PCP - General Internal Medicine 10/23/22 Adarsh Manrique MD [address] [place] [address] PCP - ACO Reach 10/22/22 Decorating Supervisor Relationship Specialty Start Date End Date Adarsh Manrique MD [address] [place] [address] PCP - General Internal Medicine 10/23/22 Adarsh Manrique MD [address] [place] [address] PCP - ACO Reach 10/22/22 Decorating Supervisor Relationship Specialty Start Date End Date Adarsh Manrique MD [address] [place] [address] PCP - General Internal Medicine 10/23/22 Adarsh Manrique MD [address] [facility] [address] [place] [address] PCP - ACO Reach 10/22/22 Team Status: [...] Attending Provider Active Start: June 08, 2024 Decorating Supervisor Relationship Specialty Start Date End Date Adarsh Manrique MD [address] [facility] [address] [place] [address] PCP - General Internal Medicine 10/23/22 Adarsh Manrique MD [address] [facility] [address] [place] [address] PCP - ACO Reach 10/22/22 Decorating Supervisor Relationship Specialty Start Date End Date Adarsh Manrique MD [address] [facility] [address] [place] [address] PCP - General Internal Medicine 10/23/22 Adarsh Manrique MD [address] [facility] [address] [place] [address] PCP - ACO Reach 10/22/22 Decorating Supervisor Relationship Specialty Start Date End Date Adarsh Manrique MD [address] [facility] [address] [place] [address] PCP - General Internal Medicine 10/23/22 Adarsh Manrique MD [address] [facility] [address] [place] [address] PCP - ACO Reach 10/22/22 Decorating Supervisor Relationship Specialty Start Date End Date Adarsh Manrique MD [address] [facility] [address] [place] [address] PCP - General Internal Medicine 10/23/22 Adarsh Manrique MD [address] [facility] [address] [place] [address] PCP - ACO Reach 10/22/22 Reason for [...] BE BASED ON THE PRIMARY CLINICAL RECORDS. [employer] provides no warranty or guarantee of the accuracy or completeness of information in this document.
[2024-08-05 09:26] LABS: Chol HDL Ratio 2.7; Cholesterol 182 mg/dL (<=200); HDL Cholesterol 68 mg/dL (40-60); Triglycerides 84 mg/dL (<=150); VLDL CHOLESTEROL 16.8 mg/dL
== END 2024-08-05 08:49 | disposition home or self-care (01) ==
LOC: LAB 08:48
PROVIDERS: PCP Internal Medicine; Visit Provider Physician Assistant
DX: Z00.00 Encounter for general adult medical examination without abnormal findings (principal); E78.00 Pure hypercholesterolemia, unspecified; I10 Essential (primary) hypertension; I25.10 Atherosclerotic heart disease of native coronary artery without angina pectoris
CPT/HCPCS: 36415; 80061

== ENCOUNTER 2024-09-21 10:31 | Outpatient (RCR) | payer MEDICARE, OTHER, SELFPAY | END 2024-10-19 16:12 | disposition home or self-care (01) | LOC: PT 10:31 | PROVIDERS: PCP Internal Medicine; Visit Provider Orthopaedic Surgery | DX: R26.89 Other abnormalities of gait and mobility (principal); Z96.652 Presence of left artificial knee joint; R26.9 Unspecified abnormalities of gait and mobility | CPT/HCPCS: 97110; 97112; 97140; 97161; 97530 ==

== ENCOUNTER 2025-01-23 09:38 | Outpatient (OUT) | payer MEDICARE, OTHER, SELFPAY ==
--- OUTSIDE RECORDS SUMMARY | 2025-01-23 09:41 | XMS_ITS | Encounter Summary ---
Author Organization [facility] Address [address] [place] [address] Care Team Providers Care Hide And Skin Classer Name Role Phone Adarsh Manrique MD Primary Care Provider Adarsh Manrique MD Unavailable [phone] Kelly Nice SEAT NAILER Unavailable [phone] Encounter Details Date Type Department Care Team (Late st Contact Info) Description 06/14/2023 Abstract [facility] [address] [facility] [address] [place] [phone] Adarsh Manrique MD 112 [facility] [address] [place], [place] [id number] Social History Tobacco Use Types Packs/Day Years Used Date Smoking Tobacco: Never Smokeless Tobacco: Never Alcohol Use Standard Drinks/Week Comments Never 0 (1 standard drink = 0.6 oz pur e alcohol) Comments Unknown Sex and Gender Information Value Date Recorded Sex Assigned at Not on file Legal Sex Female 7:07 PM EDT Gender Identity Not on file Sexual Orientation Not on file documented as of this encounter Plan of Treatment Upcoming Encounters Date Type Department Care Team (Late Contact Info) Description 01/31/2025 10:00 AM EDT Office Visit [facility] 112 [facility] [address] [place] [phone] Adarsh Manrique MD 112 [facility] [address] [place], [place] [id number] 02/05/2025 2:15 PM EDT Office Visit [facility] [address] [place] [phone] Raffaele Castillo DO [address] [place] [address] documented as of this encounter Visit Diagnoses Not on filedocumented in this encounter Care Teams Hide And Skin Classer Relationship Specialty Start Date End Date Adarsh Manrique MD [address] [place] [place], [place] [id number] PCP - General Internal Medicine 10/23/22 Adarsh Manrique MD [address] [facility] [address] [place] [address] PCP - ACO Reach 10/22/22 Kelly Nice, JOSE MANUEL [address] [place] [address] Upper Extremity Surgeon Family Medicine 10/25/24 11/14/24 documented as of this encounter
--- OUTSIDE RECORDS SUMMARY | 2025-01-23 09:41 | XMS_ITS | Encounter Summary ---
Author Organization [facility] Address [address] [place] [address] Care Team Providers Care Orthopaedic Surgeon Name Role Phone Adarsh Manrique MD Primary Care Provider [phone] Adarsh Manrique MD Unavailable [phone] Kelly Nice TREATMENT COORDINATOR Unavailable [phone] Encounter Details Date Type Department Care Team (Late st Contact Info) Description 06/01/2023 Clinisync Result Encounter [facility] External Department Unsolicited Adarsh Manrique MD 112 [facility] 110 [place], [place] [address] Social History Tobacco Use Types Packs/Day Years [...] Encounters Date Type Department Care Team (Late st Contact Info) Description 01/31/2025 10:00 AM EDT Office Visit [facility] [place] 112 [facility] 110 [place] [address] Adarsh Manrique MD 112 [facility] 110 [place], [place] [address] 02/05/2025 2:15 PM EDT Office Visit [facility] [address] [place] [address] Raffaele Castillo, DO [address] [place] [address] documented as of this encounter Procedures Procedure Name Priority Date/Time Associated Diagnosis Comments XR CHEST 2V 06/01/2023 11:46 AM EST documented in this encounter Results * XR CHEST 2V (06/01/2023 11:46 AM EST) Anatomical Region Laterality Modality Other 06/01/2023 11:4 6 AM EST Narrative 06/01/2023 11:49 AM EST [address] [address] XRay Report Signed Patient: JEANNETTE BRIGHT MR#: [id number] : 1945 Acct:[id number] Age/Sex: 78 / F ADM Date: 06/01/23 Loc: RAD Attending Dr: ADARSH MANRIQUE Ordering Physician: ADARSH MANRIQUE Date of Service: 06/01/23 Procedure(s): XR chest 2V Accession Number(s): [id number] cc: ADARSH MANRIQUE [address] [address] Patient Name: JEANNETTE BRIGHT MRN: [id number] date: 1945 Sex: F Assigned Patient Location: [facility] Current Patient Location: RAD Accession/Order Number: [id number] Exam Date: 06/01/2023 11:15 Report Date: 06/01/2023 11:46 At the request of: ADARSH MANRIQUE Procedure: XR chest 2V EXAM: CHEST 2 VIEWS HISTORY: dyspnea on exertion R06.09 TECHNIQUE: PA and lateral views chest. COMPARISON: None. FINDINGS: There is bibasilar atelectasis. Blunted lateral left costophrenic recess may be scarring versus trace effusion. There is no pneumothorax. Pulmonary vasculature is within normal limits. There is aortic atherosclerosis. Heart size within normal limits. XR/XR chest 2V IMPRESSION: 1. Bibasilar atelectasis with possible trace left effusion versus scarring. No consolidation. 2. Atherosclerosis and normal heart size. Negative for pulmonary edema. Electronically authenticated by: NEENA CONLEY Date: 06/01/2023 11:46 Dictated By: Neena Conley M.D. Signed By: 06/01/23 1149 DD/ 1146 TD/TT: Import Export Clerk: Procedure Note Radiology, Radiologist, MD - 06/01/2023 [place] [address] XRay Report Signed Patient: JEANNETTE BRIGHT R#: [id number] : 1945cct:[id number] Age/Sex: 78 / FADM Date: 06/01/23 Loc: RAD Attending Dr: ADARSH MANRIQUE Ordering Physician: ADARSH MANRIQUE Date of Service: 06/01/23 Procedure(s): XR chest 2V Accession Number(s): [id number] cc: ADARSH MANRIQUE [place] [address] Patient Name: JEANNETTE BRIGHT MRN: [id number] date: 1945 Sex: F Assigned Patient Location: [facility] Current Patient Location: [facility] Accession/Order Number: [id number] Exam Date: 06/01/2023 11:15 Report Date: 06/01/2023 11:46 At the request of: ADARSH MANRIQUE Procedure: XR chest 2V EXAM: CHEST 2 VIEWS HISTORY: dyspnea on exertion R06.09 TECHNIQUE: PA and lateral views chest. COMPARISON: None. FINDINGS: There is bibasilar atelectasis. Blunted lateral left costophrenic recessmay be scarring versus trace effusion. There is no pneumothorax. Pulmonary vasculature is within normal limits. There is aortic atherosclerosis. Heart sizewithin normal limits. XR/XR chest 2V IMPRESSION: 1. Bibasilar atelectasis with possible trace left effusion versusscarring. No consolidation. 2. Atherosclerosis and normal heart size. Negative for pulmonary edema. Electronically authenticated by: NEENA CONLEY Date: 06/01/2023 11:46 Dictated By: Neena Conley M.D. Signed By:06/01/23 1149 DD/ 1146 TD/TT: Import Export Clerk: Adarsh Manrique MD [facility] Final Result documented in this encounter Visit Diagnoses Not on filedocumented in this encounter Care Teams Orthopaedic Surgeon Relationship Specialty Start Date End Date Adarsh Manrique MD [address] [facility] 110 [place] [address] PCP - General Internal Medicine 10/23/22 Adarsh Manrique MD [address] [facility] 110 [place] [address] PCP - ACO Reach 10/22/22 Kelly Nice, TREATMENT COORDINATOR [address] [place] [address] Maid Supervisor Family Medicine 10/25/24 11/14/24 documented as of this encounter
--- OUTSIDE RECORDS SUMMARY | 2025-01-23 09:41 | XMS_ITS | Encounter Summary ---
Author Organization [facility] Address [address] [place] [address] Care Team Providers Care Podiatric Foot And Ankle Specialist Name Role Phone Adarsh Manrique MD Primary Care Provider Adarsh Manrique MD Unavailable [phone] Kelly Nice WATCH PARTS INSPECTOR Unavailable [phone] Encounter Details Date Type Department Care Team (Late st Contact Info) Description 06/16/2023 Abstract [facility] 112 [facility] 110 [place] [address] Adarsh Manrique MD 112 [facility] 110 [place], [place] [address] Social History Tobacco Use Types Packs/Day Years [...] Visit [facility] [place] [facility] 112 [facility] 110 [place] [address] Adarsh Manrique MD 112 [facility] 110 [place], [place] [address] 02/05/2025 2:15 PM EDT Office Visit [facility] [address] [place] [address] Raffaele Castillo DO [address] [place] [address] documented as of this encounter Visit Diagnoses Not on filedocumented in this encounter Care Teams Podiatric Foot And Ankle Specialist Relationship Specialty Start Date End Date Adarsh Manrique MD [address] [place] [address] [place], [place] [address] PCP - General Internal Medicine 10/23/22 Adarsh Manrique MD [address] [facility] 110 [place] [address] PCP - ACO Reach 10/22/22 Kelly Nice, JOSE MANUEL [address] [place] [address] Cis Coordinator Family Medicine 10/25/24 11/14/24 documented as of this encounter
--- OUTSIDE RECORDS SUMMARY | 2025-01-23 09:41 | XMS_ITS | Encounter Summary ---
Author Organization [facility] Address [address] [place] [address] Care Team Providers Care Collection Coordinator Name Role Phone Adarsh Manrique MD Primary Care Provider Adarsh Manrique MD Unavailable [phone] Kelly Nice MOBILE SECURITY SPECIALIST Unavailable [phone] Encounter Details Date Type Department Care Team (Late st Contact Info) Description 06/16/2023 Abstract [facility] 112 [facility] 110 [place] [address] Adarsh Manrique MD 112 [facility] 110 [place], [place] [address] Social History Tobacco Use Types Packs/Day Years [...] Visit [facility] [place] [facility] Bridget 112 [facility] 110 [place] [address] Adarsh Manrique MD 112 [facility] 110 [place], [place] [address] 02/05/2025 2:15 PM EDT Office Visit [facility] Eye [address] [place] [address] Raffaele Castillo DO [address] [place] [address] documented as of this encounter Visit Diagnoses Not on filedocumented in this encounter Care Teams Collection Coordinator Relationship Specialty Start Date End Date Adarsh Manrique MD [address] [place] [address] [place], [place] [address] PCP - General Internal Medicine 10/23/22 Adarsh Manrique MD [address] [facility] 110 [place] [address] PCP - ACO Reach 10/22/22 Kelly Nice, JOSE MANUEL [address] [place] [address] Felt Hanger Family Medicine 10/25/24 11/14/24 documented as of this encounter
--- OUTSIDE RECORDS SUMMARY | 2025-01-23 09:41 | XMS_ITS | Encounter Summary ---
Author Organization [facility] Address [address] [place] [address] Care Team Providers Care Charge Weigher Name Role Phone Adarsh Manrique MD Primary Care Provider [phone] Adarsh Manrique MD Unavailable [phone] Kelly Nice DIRECTOR SEARCH MARKETING STRATEGIES Unavailable [phone] Encounter Details Date Type Department Care Team (Late st Contact Info) Description 06/16/2023 Abstract [facility] [place] [facility] 112 [facility] 110 [place] [address] Adarsh Manrique MD 112 [facility] 110 [place], [place] [address] Social History Tobacco Use Types Packs/Day Years [...] 10:00 AM EDT Office Visit [facility] [place] Bridget 112 [facility] 110 [place] [address] Adarsh Manrique MD 112 [facility] 110 [place], [place] [address] 02/05/2025 2:15 PM EDT Office Visit [facility] Eye [address] [place] [address] Raffaele Castillo DO [address] [place] [address] documented as of this encounter Visit Diagnoses Not on filedocumented in this encounter Care Teams Charge Weigher Relationship Specialty Start Date End Date Adarsh Manrique MD [address] [place] [address] [place], [place] [address] PCP - General Internal Medicine 10/23/22 Adarsh Manrique MD [address] [facility] 110 [place] [address] PCP - ACO Reach 10/22/22 Kelly Nice, JOSE MANUEL [address] [place] [id number] General Magistrate Family Medicine 10/25/24 11/14/24 documented as of this encounter
--- OUTSIDE RECORDS SUMMARY | 2025-01-23 09:41 | XMS_ITS | Encounter Summary ---
Author Organization [facility] Address [address] [place] [address] Care Team Providers Care Lead Recoverer Name Role Phone Adarsh Manrique MD Primary Care Provider [phone] Adarsh Manrique MD Unavailable [phone] Kelly Nice CHEESE SUPERVISOR Unavailable [phone] Encounter Details Date Type Department Care Team (Late st Contact Info) Description 06/01/2023 Clinisync Result Encounter NOMS External Department Unsolicited Adarsh Manrique MD 112 [facility] 110 [place], [place] [address] Social History Tobacco Use Types Packs/Day Years [...] Office Visit [facility] [place] 112 [facility] 110 [place] [address] Adarsh Manrique MD 112 [facility] 110 [place], [place] [address] 02/05/2025 2:15 PM EDT Office Visit [facility] [address] [place] [address] Raffaele Castillo, DO [address] [place] [address] documented as of this encounter Procedures Procedure Name Priority Date/Time Associated Diagnosis Comments XR KNEE 3 VIEWS LEFT 06/01/2023 11:35 AM EST documented in this encounter Results * XR knee 3 views left (06/01/2023 11:35 AM EST) Anatomical Region Laterality Modality Lower Extremities, Knee Left Radiogra phic Imaging 06/01/2023 11:3 5 AM EST Narrative 06/01/2023 11:37 AM EST [address] [address] XRay Report Signed Patient: JEANNETTE BRIGHT MR#: [id number] : 1945 Acct:[id number] Age/Sex: 78 / F ADM Date: 06/01/23 Loc: RAD Attending Dr: ADARSH MANRIQUE Ordering Physician: ADARSH MANRIQUE Date of Service: 06/01/23 Procedure(s): XR knee LT 3V Accession Number(s): [id number] cc: ADARSH MANRIQUE [address] [address] Patient Name: JEANNETTE BRIGHT MRN: [id number] date: 1945 Sex: F Assigned Patient Location: RAD Current Patient Location: CARD Accession/Order Number: [id number] Exam Date: 06/01/2023 11:15 Report Date: 06/01/2023 11:35 At the request of: ADARSH MANRIQUE Procedure: XR knee LT 3V PROCEDURE: XR knee LT 3V COMPARISON: None. HISTORY: chronic pain of left knee M25.562, G89.29 FINDINGS: BONES:No acute fracture or dislocation. Moderate to severe tricompartmental osteoarthritis most significant in the anterior and lateral compartments where there is cortical irregularity and marginal osteophyte formation. Chondrocalcinosis. SOFT TISSUES:Negative. No visible soft tissue swelling. EFFUSION:Moderate suprapatellar joint effusion OTHER: Negative. XR/XR knee LT 3V IMPRESSION: Moderate to severe osteoarthritis Electronically authenticated by: MOSHE CALERO Date: 06/01/2023 11:35 Dictated By: Moshe Calero M.D. Signed By: 06/01/23 1137 DD/ 1135 TD/TT: Poultry Tender: Procedure Note Radiology, Radiologist, MD - 06/01/2023 [place] [address] XRay Report Signed Patient: JEANNETTE BRIGHT GMR#: [id number] : 1945cct:[id number] Age/Sex: 78 / FADM Date: 06/01/23 Loc: RAD Attending Dr: ADARSH MANRIQUE Ordering Physician: ADARSH MANRIQUE Date of Service: 06/01/23 Procedure(s): XR knee LT 3V Accession Number(s): [id number] cc: ADARSH MANRIQUE [place] [id number] Patient Name: JEANNETTE BRIGHT MRN: [id number] date: 1945 Sex: F Assigned Patient Location: [facility] Current Patient Location: CARD Accession/Order Number: [id number] Exam Date: 06/01/2023 11:15 Report Date: 06/01/2023 11:35 At the request of: ADARSH MANRIQUE Procedure: XR knee LT 3V PROCEDURE: XR knee LT 3V COMPARISON: None. HISTORY: chronic pain of left knee M25.562, G89.29 FINDINGS: BONES:No acute fracture or dislocation. Moderate to severetricompartmental osteoarthritis most significant in the anterior and lateral compartmentswhere there is cortical irregularity and marginal osteophyte formation. Chondrocalcinosis. SOFT TISSUES:Negative. No visible soft tissue swelling. EFFUSION:Moderate suprapatellar joint effusion OTHER: Negative. XR/XR knee LT 3V IMPRESSION: Moderate to severe osteoarthritis Electronically authenticated by: MOSHE CALERO Date: 06/01/2023 11:35 Dictated By: Moshe Calero M.D. Signed By:06/01/23 1137 DD/ 1135 TD/TT: Poultry Tender: us Adarsh Manrique MD IMG XR PROCEDURES Final Result documented in this encounter Visit Diagnoses Not on filedocumented in this encounter Care Teams Lead Recoverer Relationship Specialty Start Date End Date Adarsh Manrique MD [address] [facility] 110 [place] [address] PCP - General Internal Medicine 10/23/22 Adarsh Manrique MD [address] [facility] 110 [place] [address] PCP - ACO Reach 10/22/22 Kelly Nice, CHEESE SUPERVISOR [address] [place] [address] White Sugar Pan Tank Operator Family Medicine 10/25/24 11/14/24 documented as of this encounter
--- OUTSIDE RECORDS SUMMARY | 2025-01-23 09:41 | XMS_ITS | Encounter Summary ---
Author Organization [facility] Address [address] [place] [address] Care Team Providers Care Wellness Spa Manager Name Role Phone Adarsh Manrique MD Primary Care Provider [phone] Adarsh Manrique MD Unavailable [phone] Kelly Nice INFORMATION SERVICES TECH Unavailable [phone] Encounter Details Date Type Department Care Team (Late st Contact Info) Description 06/10/2023 Clinisync Result Encounter NOMS External Department Unsolicited Adarsh Manrique MD 112 [facility] 110 [place], [place] [address] Social History Tobacco Use Types Packs/Day Years [...] Office Visit [facility] [place] [address] [facility] 110 [place] [address] Adarsh Manrique MD 112 [facility] 110 [place], [place] [address] 02/05/2025 2:15 PM EDT Office Visit [facility] [address] [place] [address] Raffaeel Castillo, DO [address] [place] [address] documented as of this encounter Procedures Procedure Name Priority Date/Time Associated Diagnosis Comments CA HOLTER MONITOR 2-7 DAYS 06/10/2023 10:23 AM EST documented in this encounter Results * CA HOLTER MONITOR 2-7 DAYS (06/10/2023 10:23 AM EST) Anatomical Region Laterality Modality Other 06/10/2023 10:2 3 AM EST Narrative 06/12/2023 4:15 PM EST The [address] [address] Cardiology Report Signed Patient: JEANNETTE BRIGHT MR#: [id number] : 1945 Acct:[id number] Age/Sex: 78 / F ADM Date: 06/01/23 Loc: CARD Attending Dr: ADARSH MANRIQUE Ordering Physician: ADARSH MANRIQUE Date of Service: 06/01/23 Procedure(s): CA holter montior 2-7 days Accession Number(s): [id number] cc: ADARSH MANRIQUE The [facility] Test Date: 2023-06-10 Pat Name: JEANNETTE BRIGHT Department: Room: - Gender: Female Portable Canteen Operator: : 1945 Requested By: ADARSH MANRIQUE Order Number: [id number] Reading MD: RAUL GAY Interpretive Statements Predominant rhythm is sinus w/ average rate of 63 bpm Tachycardia - max rate of 134 bpm (PSVT) - 4 episodes of PSVT w/ longest duration of 6 beats Bradycardia - min rate of 42 bpm - longest episode of 2h 25min 49sec with rates between 43-53 bpm Ventricular ectopy - 14 PVC Patient triggered events: none Impression: Predominant rhythm is sinus w/ average rate of 63 bpm Fastest rate of 134 bpm (PSVT) and slowest rate of 42 bpm 14 PVC No atrial fibrillation No pauses or blocks Electronically Signed On 06-12-2023 16:14:58 EST by RAUL GAY Dictated By: Raul Gay D.O. Signed By: 06/12/23161406/12/231614 DD/ 1023 TD/TT: Senior Contracts Manager: Procedure Note Radiology, Radiologist, - 06/12/2023 [place] [address] Cardiology Report Signed Patient: JEANNETTE BRIGHT GMR#: [id number] : 6Acct:[id number] Age/Sex: 78 / FADM Date: 06/01/23 Loc: CARD Attending Dr: ADARSH MANRIQUE Ordering Physician: ADASRH MANRIQUE Date of Service: 06/01/23 Procedure(s): CA holter montior 2-7 days Accession Number(s): [id number] cc: ADARSH MANRIQUE The [facility] Test Date: 2023-06-10 Pat Name: JEANNETTE BRIGHT Department: Room: - Gender: Female Portable Canteen Operator: : 1945 Requested By: ADARSH MANRIQUE Order Number: [id number] Reading MD: RAUL GAY Interpretive Statements Predominant rhythm is sinus w/ average rate of 63 bpm Tachycardia - max rate of 134 bpm (PSVT) - 4 episodes of PSVT w/ longest duration of 6 beats Bradycardia - min rate of 42 bpm - longest episode of 2h 25min 49sec with rates between 43-53 bpm Ventricular ectopy - 14 PVC Patient triggered events: none Impression: Predominant rhythm is sinus w/ average rate of 63 bpm Fastest rate of 134 bpm (PSVT) and slowest rate of 42 bpm 14 PVC No atrial fibrillation No pauses or blocks Electronically Signed On 06-12-2023 16:14:58 EST by RAUL GAY Dictated By: Raul Gay D.O. Signed By:06/12/23161406/12/231614 DD/ 1023 TD/TT: Senior Contracts Manager: us Adarsh Manrique MD [facility] Final Result documented in this encounter Visit Diagnoses Not on filedocumented in this encounter Care Teams Wellness Spa Manager Relationship Specialty Start Date End Date Adarsh Manrique MD [address] [facility] 110 [place] [address] PCP - General Internal Medicine 10/23/22 Adarsh Manrique MD [address] [facility] 110 [place] [address] PCP - ACO Reach 10/22/22 Kelly Nice, INFORMATION SERVICES TECH [address] [place] [address] Checking Clerk Family Medicine 10/25/24 11/14/24 documented as of this encounter
--- OUTSIDE RECORDS SUMMARY | 2025-01-23 09:41 | XMS_ITS | Encounter Summary ---
Author Organization [facility] Address [address] [place] [address] Care Team Providers Care Crystal Attacher Name Role Phone Adarsh Manrique MD Primary Care Provider [phone] Adarsh Manrique MD Unavailable [phone] Kelly Nice CANCER PROGRAM DIRECTOR Unavailable [phone] Encounter Details Date Type Department Care Team (Late st Contact Info) Description 06/01/2023 Orders Only [facility] [place] [facility] [address] [facility] 110 [place] [address] A, Unknown Practice [address] [place], [place] [address] Social History Tobacco Use Types Packs/Day Years [...] AM EDT Office Visit [facility] [place] [facility] [address] [place] [address] [place] [address] Adarsh Manrique MD [address] [email or web address] 110 [place] [address] 02/05/2025 2:15 PM EDT Office Visit [facility] [address] [place] [address] Raffaele Castillo DO [address] [place] [address] documented as of this encounter Procedures Procedure Name Priority Date/Time Associated Diagnosis Comments XR CHEST 2 VIEWS Routine 06/01/2023 2:27 PM EST XR KNEE 3 VIEWS LEFT Routine 06/01/2023 2:09 PM EST documented in this encounter Results * XR chest 2 views (06/01/2023 2:27 PM EST) Anatomical Region Laterality Modality Chest Radiographic Beatriz ging us Unknown Practice A IMG XR PROCEDURES Final Resul t * XR knee 3 views left (06/01/2023 2:09 PM EST) Anatomical Region Laterality Modality Lower Extremities, Knee Left Radiogra phic Imaging us Unknown Practice A IMG XR PROCEDURES Final Resul t documented in this encounter Visit Diagnoses Not on filedocumented in this encounter Care Teams Crystal Attacher Relationship Specialty Start Date End Date Adarsh Manrique MD [address] [facility] 110 [place] [address] PCP - General Internal Medicine 10/23/22 Adarsh Manrique MD [address] [email or web address] 110 [place] [address] PCP - ACO Reach 10/22/22 Kelly Nice, CANCER PROGRAM DIRECTOR [address] [place] [address] Golf Course Laborer Family Medicine 10/25/24 11/14/24 documented as of this encounter
--- OUTSIDE RECORDS SUMMARY | 2025-01-23 09:41 | XMS_ITS | Encounter Summary ---
Author Organization [facility] Address [address] [place] [address] Care Team Providers Care Medical Science Liaison Name Role Phone Adarsh Manrique MD Primary Care Provider [phone] Adarsh Manrique MD Unavailable [phone] Kelly Nice EXPERT MEDICAL WRITER Unavailable [phone] Encounter Details Date Type Department Care Team (Late st Contact Info) Description 06/16/2023 Orders Only [facility] [place] [facility] [address] [facility] 110 [place] [address] A, Unknown Practice [address] [place], [place] [address] Social History Tobacco Use Types Packs/Day Years [...] [facility] [address] [place] [address] Adarsh Manrique MD [address] [facility] 110 [place] [address] 02/05/2025 2:15 PM EDT Office Visit [facility] [address] [place] [address] Raffaele Castillo DO [address] [place] [address] documented as of this encounter Procedures Procedure Name Priority Date/Time Associated Diagnosis Comments XR CHEST 1 VIEW Routine 06/15/2023 2:[address] ABDOMEN & PELVIS W Routine 06/15/2023 10:57 AM EST documented in this encounter Results * XR chest 1 view (06/15/2023 2:58 PM EST) Anatomical Region Laterality Modality Chest Radiographic Beatriz ging us Unknown Practice A IMG XR PROCEDURES Final Resul t * CT ABDOMEN & PELVIS W (06/15/2023 10:57 AM EST) Anatomical Region Laterality Modality Radiographic Beatriz ging us Unknown Practice A IMG XR PROCEDURES Final Resul t documented in this encounter Visit Diagnoses Not on filedocumented in this encounter Care Teams Medical Science Liaison Relationship Specialty Start Date End Date Adarsh Manrique MD [address] [facility] 110 [place] [address] PCP - General Internal Medicine 10/23/22 Adarsh Manrique MD [address] [facility] 110 [place] [address] PCP - ACO Reach 10/22/22 Kelly Nice, EXPERT MEDICAL WRITER [address] [place] [address] Supervisor Pile Driving Family Medicine 10/25/24 11/14/24 documented as of this encounter
--- OUTSIDE RECORDS SUMMARY | 2025-01-23 09:41 | XMS_ITS | Encounter Summary ---
Author Organization [facility] Address [address] [place] [address] Care Team Providers Care Clinical Care Leader Name Role Phone Adarsh Manrique MD Primary Care Provider [phone] Adarsh Manrique MD Unavailable [phone] Kelly Nice DECKHAND CRAB BOAT Unavailable [phone] Encounter Details Date Type Department Care Team (Late st Contact Info) Description 06/14/2023 Orders Only [facility] [place] [facility] [address] [facility] 110 [place] [address] A, Unknown Practice [address] [place], [place] [address] Social History Tobacco Use Types Packs/Day Years [...] [facility] [address] [place] [address] [place] [address] Adarsh Manrique MD [address] [facility] 110 [place] [id number] 02/05/2025 2:15 PM EDT Office Visit [facility] [address] [place] [address] Raffaele Castillo DO [address] [place] [address] documented as of this encounter Procedures Procedure Name Priority Date/Time Associated Diagnosis Comments HOLTER MONITOR 48HR Routine 06/01/2023 9 :54 AM EST RHYTHM ECG 1-3 LEAD Routine 06/01/2023 9 :11 AM EST ELECTROCARDIOGRAM REPORT Routine 024 9:11 AM EST documented in this encounter Results * HOLTER MONITOR 48HR (06/01/2023 9:54 AM EST) Anatomical Region Laterality Modality Radiographic Beatriz ging us Unknown Practice A IMG XR PROCEDURES Final Resul t * Electrocardiogram Report (06/01/2023 9:11 AM EST) us Unknown Practice A IN CLINIC/BEDSIDE ORDERABLES Final Result * Rhythm ECG 1-3 lead (06/01/2023 9:11 AM EST) us Unknown Practice A ECG ORDERABLES Final Result documented in this encounter Visit Diagnoses Not on filedocumented in this encounter Care Teams Clinical Care Leader Relationship Specialty Start Date End Date Adarsh Manrique MD [address] [facility] 110 [place] [address] PCP - General Internal Medicine 10/23/22 Adarsh Manrique MD [address] [facility] 110 [place] [address] PCP - ACO Reach 10/22/22 Kelly Nice, DECKHAND CRAB BOAT [address] [place] [address] Tube Room Cashier Family Medicine 10/25/24 11/14/24 documented as of this encounter
--- OUTSIDE RECORDS SUMMARY | 2025-01-23 09:42 | XMS_ITS | Encounter Summary ---
Author Organization [facility] Address [address] [facility] [place] [address] Care Team Providers Care Anode Worker Name Role Phone Adarsh Manrique MD Primary Care Provider [phone] Adarsh Manrique MD Unavailable [phone] Kelly Nice WORKERS COMPENSATION EXAMINER Unavailable [phone] Encounter Details Date Type Department Care Team (Late Contact Info) Description 10/19/2024 Abstract [facility] [place] [facility] [address] [facility] 110 [place] [address] Adarsh Manrique MD [address] [facility] 110 [place], [place] [id number] Social History Tobacco Use Types Packs/Day Years Used Date Smoking Tobacco: Never Smokeless Tobacco: Never Alcohol Use Standard Drinks/Week Comments Never 0 (1 standard drink = 0.6 oz pur e alcohol) PHQ-2 Answer Date Recorded Patient Health Questionnaire-2 Score 0 07/27/2024 Comments Unknown Sex and Gender Information Value Date Recorded Sex Assigned at Not on file Legal Sex Female 7:07 PM EDT Gender Identity Not on file Sexual Orientation Not on file documented as of this encounter Plan of Treatment Upcoming Encounters Date Type Department Care Team (Late Contact Info) Description 01/31/2025 10:00 AM EDT [facility] Visit [facility] [address] [facility] 110 [place] [address] Adarsh Manrique MD [address] [facility] 110 [place] [address] 02/05/2025 2:15 PM EDT Office Visit [facility] Eye [address] [place] [address] Raffaele Castillo, [address] [place] [address] documented as of this encounter Visit Diagnoses Not on filedocumented in this encounter Additional Health Concerns Assessment Noted Time PHQ-9 Depression Total Score: 0 07/27/19 25 9:00 AM EST documented as of this encounter Care Teams Anode Worker Relationship Specialty Start Date End Date Adarsh Manrique MD [address] [facility] 110 [place] [address] PCP - General Internal Medicine 10/23/22 Adarsh Manrique MD 112 [facility] 110 [place] [address] PCP - ACO Reach 10/22/22 Kelly Nice, JOSE MANUEL [address] [place] [address] Instrument Maker Apprentice Family Medicine 10/25/24 11/14/24 documented as of this encounter
--- OUTSIDE RECORDS SUMMARY | 2025-01-23 09:42 | XMS_ITS | Encounter Summary ---
Author Organization [facility] Address [address] [place] [address] Care Team Providers Care Farm Machine Tender Name Role Phone Adarsh Manrique MD Primary Care Provider [phone] Adarsh Manrique MD Unavailable [phone] Kelly Nice HYDROMETEOROLOGICAL TECHNICIAN Unavailable [phone] Encounter Details Date Type Department Care Team (Late Contact Info) Description 12/30/2023 Orders Only [facility] [place] [facility] [address] [facility] 110 [place] [address] Ama Garcia LPN [address] [place] [address] Chronic pain of left knee; ORTIZ (dyspnea on exertion) Social History Tobacco Use Types Packs/Day Years [...] 01/31/2025 10:00 AM EDT [facility] [address] [place] [address] [place] [address] Adarsh Manrique MD 112 [facility] 110 [place], [place] [address] 02/05/2025 2:15 PM EDT Office Visit [facility] [address] [place] [address] Raffaele Castillo, DO [address] [place] [address] documented as of this encounter Visit Diagnoses Diagnosis Chronic pain of left knee ORTIZ (dyspnea on exertion) Other dyspnea and respiratory abnormality documented in this encounter Care Teams Farm Machine Tender Relationship Specialty Start Date End Date Adarsh Manrique MD [address] [facility] 110 [place], [place] [address] PCP - General Internal Medicine 10/23/22 Adarsh Manrique MD [address] [facility] 110 [place] [address] PCP - ACO Reach 10/22/22 Kelly Nice, JOSE MANUEL [address] [place] [address] Box Blank Machine Operator Family Medicine 10/25/24 11/14/24 documented as of this encounter
--- OUTSIDE RECORDS SUMMARY | 2025-01-23 09:42 | XMS_ITS | Encounter Summary ---
Author Organization [facility] Address [address] [place] [address] Care Team Providers Care Topstitcher Zigzag Name Role Phone Adarsh Manrique MD Primary Care Provider [phone] Adarsh Manrique MD Unavailable [phone] Kelly Nice GLUE REEL OPERATOR Unavailable [phone] Encounter Details Date Type Department Care Team (Late st Contact Info) Description 06/28/2023 Orders Only [facility] [place] [facility] [address] [facility] 110 [place] [address] A, Unknown Practice [address] [place], [place] [address] Social History Tobacco Use Types Packs/Day Years [...] [facility] [address] [place] [address] [place] [address] Adarsh Manrique MD [address] [facility] 110 [place] [id number] 02/05/2025 2:15 PM EDT Office Visit [facility] [address] [place] [address] Raffaele Castillo DO [address] [place] [address] documented as of this encounter Procedures Procedure Name Priority Date/Time Associated Diagnosis Comments ELECTROCARDIOGRAM REPORT Routine 024 1:27 PM EST documented in this encounter Results * Electrocardiogram Report (06/28/2023 1:27 PM EST) us Unknown Practice A IN CLINIC/BEDSIDE ORDERABLES Final Result documented in this encounter Visit Diagnoses Not on filedocumented in this encounter Care Teams Topstitcher Zigzag Relationship Specialty Start Date End Date Adarsh Manrique MD [address] [facility] 110 [place] [address] PCP - General Internal Medicine 10/23/22 Adarsh Manrique MD [address] [facility] 110 [place] [address] PCP - ACO Reach 10/22/22 Kelly Nice, GLUE REEL OPERATOR [address] [place] [address] Environmental Compliance Inspector Family Medicine 10/25/24 11/14/24 documented as of this encounter
--- OUTSIDE RECORDS SUMMARY | 2025-01-23 09:42 | XMS_ITS | Encounter Summary ---
Author Organization [facility] Address [address] [place] [address] Care Team Providers Care Cut Off Machine Unloader Name Role Phone Adarsh Manrique MD Primary Care Provider [phone] Adarsh Manrique MD Unavailable [phone] Kelly Nice SUPERVISOR ERECTION SHOP Unavailable [phone] Encounter Details Date Type Department Care Team (Late st Contact Info) Description 09/15/2023 Clinisync Result Encounter [facility] External Department Unsolicited Provider, Generic External Data Social History Tobacco Use Types Packs/Day Years [...] 10:00 AM EDT Office Visit [facility] [place] [facility] 112 [facility] 110 [place] [address] Adarsh Manrique MD 112 [facility] 110 [place], [place] [address] 02/05/2025 2:15 PM EDT Office Visit [facility] [address] [place] [address] Raffaele Castillo, DO [address] [place] [address] documented as of this encounter Procedures Procedure Name Priority Date/Time Associated Diagnosis Comments US RENAL BI 09/15/2023 9:16 AM EDT documented in this encounter Results * US RENAL BI (09/15/2023 9:16 AM EDT) Anatomical Region Laterality Modality Other 09/15/2023 9:16 AM EDT Narrative 09/15/2023 9:19 AM EDT [address] [address] Ultrasound Report Signed Patient: MAVIS BRIGHT MR#: [id number] : 1945 Acct:[id number] Age/Sex: 78 / F ADM Date: 09/15/23 Loc: US Attending Dr: Rhina Baptiste M.D. Ordering Physician: Rhina Baptiste M.D. Date of Service: 09/15/23 Procedure(s): US renal BI Accession Number(s): [id number] cc: ADARSH MANRIQUE ; Rhina Baptiste M.D. [address] [address] Patient Name: MAVIS BRIGHT MRN: [id number] date: 1945 Sex: F Assigned Patient Location: US Current Patient Location: US Accession/Order Number: [id number] Exam Date: 09/15/2023 08:02 Report Date: 09/15/2023 09:16 At the request of: RHINA BAPTISTE Procedure: US renal BI EXAMINATION: US renal BI HISTORY: Kidney Stones COMPARISON: No relevant comparison available. TECHNIQUE: Ultrasound examination was performed of the bladder. FINDINGS: Right Kidney: Normal in size, contour and echotexture. Multiple echogenic foci, nonobstructing nephrolithiasis. No solid cortical mass. Mild pelviectasis. 1.3 cm area of anechoic echogenicity mid pole cortex, simple cyst Height: 4.9 cm Length: 11.2 cm Width: 5.6 cm Left Kidney: Normal in size, contour and echotexture. Multiple echogenic foci, nonobstructing nephrolithiasis. No solid cortical mass or hydronephrosis. Height: 4.5 cm Length: 10.3 cm Width: 5.0 cm Urinary bladder is mildly distended with a volume of 79 cc. Echogenic foci within the urinary bladder possibly representing free floating calcifications versus wall calcifications US/US renal BI IMPRESSION: Bilateral nonobstructing nephrolithiasis Electronically authenticated by: MOSHE CALERO Date: 09/15/2023 09:16 Dictated By: Moshe Calero M.D. Signed By: 09/15/23918 DD/ 5 TD/TT: Manager In Home: Procedure Note Radiology, Radiologist, MD - 09/15/2023 [place] [address] Ultrasound Report Signed Patient: MAVIS BRIGHT GMR#: [id number] : 1945cct:[id number] Age/Sex: 78 / FADM Date: 09/15/23 Loc: US Attending Dr: Rhina Baptiste M.D. Ordering Physician: Rhina Baptiste M.D. Date of Service: 09/15/23 Procedure(s): US renal BI Accession Number(s): [id number] cc: ADARSH MANRIQUE ; Rhina Baptiste M.D. [address] [place] [address] Patient Name: MAVIS BRIGHT MRN: [id number] date: 1945 Sex: F Assigned Patient Location: US Current Patient Location: US Accession/Order Number: [id number] Exam Date: 09/15/2023 08:02 Report Date: 09/15/2023 09:16 At the request of: RHINA BAPTISTE Procedure: US renal BI EXAMINATION: US renal BI HISTORY: Kidney Stones COMPARISON: No relevant comparison available. TECHNIQUE: Ultrasound examination was performed of the bladder. FINDINGS: Right Kidney: Normal in size, contour and echotexture. Multiple echogenic foci, nonobstructing nephrolithiasis. No solid cortical mass. Mild pelviectasis.1.3 cm area of anechoic echogenicity mid pole cortex, simple cyst Height: 4.9 cm Length: 11.2 cm Width: 5.6 cm Left Kidney: Normal in size, contour and echotexture. Multiple echogenicfoci, nonobstructing nephrolithiasis. No solid cortical mass or hydronephrosis. Height: 4.5 cm Length: 10.3 cm Width: 5.0 cm Urinary bladder is mildly distended with a volume of 79 cc. Echogenic foci within the urinary bladder possibly representing free floatingcalcifications versus wall calcifications US/US renal BI IMPRESSION: Bilateral nonobstructing nephrolithiasis Electronically authenticated by: MOSHE CALERO Date: 09/15/2023 09:16 Dictated By: Moshe Calero M.D. Signed By:09/15/23918 DD/ 5 TD/TT: Manager In Home: us Generic External Data Provider [facility] Final Result documented in this encounter Visit Diagnoses Not on filedocumented in this encounter Care Teams Cut Off Machine Unloader Relationship Specialty Start Date End Date Adarsh Manrique MD [address] [facility] 110 [place] [address] PCP - General Internal Medicine 10/23/22 Adarsh Manrique MD [address] [facility] 110 [place] [address] PCP - ACO Reach 10/22/22 Kelly Nice, JOSE MANUEL [address] [place] [address] Forestry Consultant Family Medicine 10/25/24 11/14/24 documented as of this encounter
--- OUTSIDE RECORDS SUMMARY | 2025-01-23 09:42 | XMS_ITS | Encounter Summary ---
Author Organization [facility] Address [address] [place] [address] Care Team Providers Care Real Estate Processor Name Role Phone Adarsh Manrique MD Primary Care Provider Adarsh Manrique MD Unavailable [phone] Kelly Nice DOCUMENT REVIEW ATTORNEY Unavailable [phone] Encounter Details Date Type Department Care Team (Late st Contact Info) Description 07/04/2024 Abstract [facility] [place] [facility] 112 [facility] 110 [place] [address] Adarsh Manrique MD 112 [facility] 110 [place], [place] [address] Social History Tobacco Use Types Packs/Day Years [...] Visit [facility] [place] [facility]idget [address] [facility] 110 [place] [address] Adarsh Manrique MD 112 [facility] 110 [place], [place] [address] 02/05/2025 2:15 PM EDT Office Visit [facility] Eye [address] [place] [address] [place] [address] Raffaele Castillo DO [address] [place] [address] documented as of this encounter Visit Diagnoses Not on filedocumented in this encounter Care Teams Real Estate Processor Relationship Specialty Start Date End Date Adarsh Manrique MD [address] [place] [address] [place], [place] [address] PCP - General Internal Medicine 10/23/22 Adarsh Manrique MD [address] [facility] 110 [place] [address] PCP - ACO Reach 10/22/22 Kelly Nice, JOSE MANUEL [address] [place] [address] Latexer Family Medicine 10/25/24 11/14/24 documented as of this encounter
--- OUTSIDE RECORDS SUMMARY | 2025-01-23 09:42 | XMS_ITS | Encounter Summary ---
Author Organization [facility] Address [address] [place] [address] Care Team Providers Care Funeral Arrangement Director Name Role Phone Adarsh Manrique MD Primary Care Provider [phone] Adarsh Manrique MD Unavailable [phone] Kelly Nice PSYCHIATRIC NURSING AIDE Unavailable [phone] Encounter Details Date Type Department Care Team (Late st Contact Info) Description 06/28/2023 Abstract [facility] [place] [facility] 112 [facility] 110 [place] [address] Adarsh Manrique MD 112 [facility] 110 [place], [place] [address] Social History Tobacco Use Types Packs/Day Years [...] Visit [facility]S [place] [facility] Bridget [address] [facility] 110 [place] [address] Adarsh Manrique MD 112 [facility] 110 [place], [place] [address] 02/05/2025 2:15 PM EDT Office Visit [facility] Eye [address] [place] [address] [place] [address] Raffaele Castillo DO [address] [place] [address] documented as of this encounter Visit Diagnoses Not on filedocumented in this encounter Care Teams Funeral Arrangement Director Relationship Specialty Start Date End Date Adarsh Manrique MD [address] [place] [address] [place], [place] [address] PCP - General Internal Medicine 10/23/22 Adarsh Manrique MD [address] [facility] 110 [place] [address] PCP - ACO Reach 10/22/22 Kelly Nice, JOSE MANUEL [address] [place] [address] Dramatic Agent Family Medicine 10/25/24 11/14/24 documented as of this encounter
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
--- OUTSIDE RECORDS SUMMARY | 2025-01-23 09:42 | XMS_ITS | Encounter Summary ---
Author Organization [facility] Address [address] [place] [address] Care Team Providers Care Fire Protection Engineering Technician Name Role Phone Adarsh Manrique MD Primary Care Provider Adarsh Manrique MD Unavailable [phone] Kelly Nice AVIATION TECHNICIAN Unavailable [phone] Encounter Details Date Type Department Care Team (Late st Contact Info) Description 06/28/2023 Abstract [facility] [place] [facility] 112 [facility] 110 [place] [address] Adarsh Manrique MD 112 [facility] 110 [place], [place] [id number] Social History Tobacco Use Types Packs/Day Years [...] Visit [facility] [place] [facility] [address] [facility] [address] [place] [address] Adarsh Manrique MD 112 [facility] 110 [place], [place] [address] 02/05/2025 2:15 PM EDT Office Visit [facility] [address] [place] [address] Raffaele Castillo DO [address] [place] [address] documented as of this encounter Visit Diagnoses Not on filedocumented in this encounter Care Teams Fire Protection Engineering Technician Relationship Specialty Start Date End Date Adarsh Manrique MD [address] [place], [place] [address] PCP - General Internal Medicine 10/23/22 Adarsh Manrique MD [address] [facility] 110 [place] [address] PCP - ACO Reach 10/22/22 Kelly Nice, JOSE MANUEL [address] [place] [address] Action Finisher Family Medicine 10/25/24 11/14/24 documented as of this encounter
--- OUTSIDE RECORDS SUMMARY | 2025-01-23 09:42 | XMS_ITS | Encounter Summary ---
Author Organization [facility] Address [address] [place] [address] Care Team Providers Care Radio Installer Name Role Phone Adarsh Manrique MD Primary Care Provider [phone] Adarsh Manrique MD Unavailable [phone] Kelly Nice TOP LIFT COMPRESSER Unavailable [phone] Encounter Details Date Type Department Care Team (Late st Contact Info) Description 07/10/2024 Abstract [facility] [place] [facility] 112 [facility] 110 [place] [address] Adarsh Manrique MD 112 [facility] 110 [place], [place] [phone] Social History Tobacco Use Types Packs/Day Years [...] Visit [facility] [place] [facility] [address] [facility] 110 [place] [address] Adarsh Manrique MD 112 [facility] 110 [place], [place] [address] 02/05/2025 2:15 PM EDT Office Visit [facility] [address] [place] [address] Raffaele Castillo DO [address] [place] [address] documented as of this encounter Visit Diagnoses Not on filedocumented in this encounter Care Teams Radio Installer Relationship Specialty Start Date End Date Adarsh Manrique MD [address] [place], [place] [address] PCP - General Internal Medicine 10/23/22 Adarsh Manrique MD [address] [facility] 110 [place] [address] PCP - ACO Reach 10/22/22 Kelly Nice, JOSE MANUEL [address] [place] [address] Ict Sales Representative Family Medicine 10/25/24 11/14/24 documented as of this encounter
--- OUTSIDE RECORDS SUMMARY | 2025-01-23 09:42 | XMS_ITS | Encounter Summary ---
Author Organization [facility] Address [address] [place] [address] Care Team Providers Care Liquor Department Manager Name Role Phone Adarsh Manrique MD Primary Care Provider [phone] Adarsh Manrique MD Unavailable [phone] Kelly Nice PRORATION CLERK Unavailable [phone] Encounter Details Date Type Department Care Team (Late st Contact Info) Description 07/04/2024 Orders Only [facility] [place] [facility] [address] [facility] 110 [place] [address] Unallocated, [facility] Provider, [address] [place], [place] [address] Social History Tobacco Use Types Packs/Day Years [...] 10:00 AM EDT Office Visit [facility] [place] [address] [place] [address] Adarsh Manrique MD [address] [place] [address] 02/05/2025 2:15 PM EDT Office Visit [facility] [address] [place] [address] Raffaele Castillo DO [address] [place] [address] documented as of this encounter Procedures Procedure Name Priority Date/Time Associated Diagnosis Comments ECG 12-LEAD Routine 07/04/2024 9:04 AM EST documented in this encounter Results * ECG 12 lead (07/04/2024 9:04 AM EST) us [facility] Provider Unallocated ECG ORDERABLES Fin al Result documented in this encounter Visit Diagnoses Not on filedocumented in this encounter Care Teams Liquor Department Manager Relationship Specialty Start Date End Date Adarsh Manrique MD [address] [facility] 110 [place] [address] PCP - General Internal Medicine 10/23/22 Adarsh Manrique MD [address] [facility] 110 [place] [address] PCP - ACO Reach 10/22/22 Kelly Nice, PRORATION CLERK [address] [facility] [place] [address] Biomedical Engineering Internship Family Medicine 10/25/24 11/14/24 documented as of this encounter
--- OUTSIDE RECORDS SUMMARY | 2025-01-23 09:42 | XMS_ITS | Encounter Summary ---
Author Organization [facility] Address [address] [place] [address] Care Team Providers Care Model Making Supervisor Name Role Phone Adarsh Manrique MD Primary Care Provider [phone] Adarsh Manrique MD Unavailable [phone] Kelly Nice TRANSCRIBER Unavailable [phone] Encounter Details Date Type Department Care Team (Late st Contact Info) Description 06/12/2024 Abstract [facility] [place] [facility] 112 [facility] 110 [place] [address] Adarsh Manrique MD 112 [facility] 110 [place], [place] [address] Social History Tobacco Use Types Packs/Day Years [...] Visit [facility] [place] [facility] [address] [facility] 110 [place] [address] Adarsh Manrique MD 112 [facility] 110 [place], [place] [address] 02/05/2025 2:15 PM EDT Office Visit [facility] [address] [place] [address] Raffaele Castillo DO [address] [place] [address] documented as of this encounter Visit Diagnoses Not on filedocumented in this encounter Care Teams Model Making Supervisor Relationship Specialty Start Date End Date Adarsh Manrique MD [address] [place], [place] [address] PCP - General Internal Medicine 10/23/22 Adarsh Manrique MD [address] [facility] 110 [place] [address] PCP - ACO Reach 10/22/22 Kelly Nice, JOSE MANUEL [address] [place] [address] Youth Nutritional Monitor Family Medicine 10/25/24 11/14/24 documented as of this encounter
--- OUTSIDE RECORDS SUMMARY | 2025-01-23 09:42 | XMS_ITS | Encounter Summary ---
Author Organization [facility] Address [address] [place] [address] Care Team Providers Care Air Tube Releaser Name Role Phone Adarsh Manrique MD Primary Care Provider [phone] Adarsh Manrique MD Unavailable [phone] Kelly Nice EXTENSION SUPERVISOR Unavailable [phone] Encounter Details Date Type Department Care Team (Late st Contact Info) Description 06/28/2023 Clinisync Result Encounter [facility] External Department Unsolicited [...] Office Visit [facility] [place] [facility] 112 [facility] 110 [place] [address] Adrash Manrique MD 112 [facility] 110 [place], [place] [address] 02/05/2025 2:15 PM EDT Office Visit [facility] [address] [place] [address] Raffaele Castillo, DO [address] [place] [address] documented as of this encounter Procedures Procedure Name Priority Date/Time Associated Diagnosis Comments ECG 12-LEAD 06/28/2023 12:56 PM EST documented in this encounter Results * ECG 12-LEAD (06/28/2023 12:56 PM EST) Anatomical Region Laterality Modality Other 06/28/2023 12:5 6 PM EST Narrative 06/28/2023 7:57 PM EST The [address] [address] Electrocardiograph Report Signed Patient: JEANNETTE BRIGHT MR#: [id number] : 1945 Acct:[id number] Age/Sex: 78 / F ADM Date: 06/28/23 Loc: PST Attending Dr: Keerthi Trujillo M.D. Ordering Physician: Keerthi Trujillo M.D. Date of Service: 06/28/23 Procedure(s): ECG 12 lead Accession Number(s): [id number] cc: [facility] Test Date: 2023-06-28 Pat Name: JEANNETTE BRIGHT Department: Room: - Gender: Female Evp Marketing: : 1945 Requested By: ADARSH MANRIQUE Order Number: [id number] Reading MD: RAUL GAY Measurements Intervals [place] Rate: 56 P: 37 MI: 147 QRS: -25 QRSD: 93 T: 2 QT: 440 QTc: 428 Interpretive Statements SINUS BRADYCARDIA INFERIOR MYOCARDIAL INFARCTION [40+ ms Q WAVE AND/OR ST/T ABNORMALITY IN II/aVF], PROBABLY OLD Compared to ECG 01/15/2021 14:00:24 Sinus rhythm no longer present Myocardial infarct finding still present Electronically Signed On 06-28-2023 19:57:44 EST by RAUL GAY Dictated By: Raul Gay D.O. Signed By: 06/28/231956 DD/ 125 TD/TT: Bass Fisher: Procedure Note Radiology, Radiologist, - 06/28/[address] [address] Electrocardiograph Report Signed Patient: JEANNETTE BRIGHT GMR#: [id number] : 6Acct:[id number] Age/Sex: 78 / FADM Date: 06/28/23 Loc: PST Attending Dr: Keerthi Trujillo M.D. Ordering Physician: Keerthi Trujillo M.D. Date of Service: 06/28/23 Procedure(s): ECG 12 lead Accession Number(s): [id number] cc: [facility] Test Date: 2023-06-28 Pat Name: JEANNETTE BRIGHT Department: Room: - Gender: Female Evp Marketing: : 1945 Requested By: ADARSH MANRIQUE Order Number: [id number] Reading MD: RAUL GAY Measurements Intervals [place] Rate: 56 P: 37 MI: 147 QRS: -25 QRSD: 93 T: 2 QT: 440 QTc: 428 Interpretive Statements SINUS BRADYCARDIA INFERIOR MYOCARDIAL INFARCTION [40+ ms Q WAVE AND/OR ST/T ABNORMALITY IN II/aVF], PROBABLY OLD Compared to ECG 01/15/2021 14:00:24 Sinus rhythm no longer present Myocardial infarct finding still present Electronically Signed On 06-28-2023 19:57:44 EST by RAUL GAY Dictated By: Raul Gay D.O. Signed By:06/28/231956 DD/ 1256 TD/TT: Bass Fisher: Generic External Data Provider [facility] Final Result documented in this encounter Visit Diagnoses Not on filedocumented in this encounter Care Teams Air Tube Releaser Relationship Specialty Start Date End Date Adarsh Manrique MD [address] [facility] 110 [place] [address] PCP - General Internal Medicine 10/23/22 Adarsh Manrique MD [address] [place] [address] PCP - ACO Reach 10/22/22 Kelly Nice, JOSE MANUEL [address] [place] [address] [employer] Social [employer] Teacher Family Medicine 10/25/24 11/14/24 documented as of this encounter
--- OUTSIDE RECORDS SUMMARY | 2025-01-23 09:42 | XMS_ITS | Encounter Summary ---
Author Organization [facility] Address [address] [place] [address] Care Team Providers Care Surgical Attendant Name Role Phone Adarsh Manrique MD Primary Care Provider [phone] Adarsh Manrique MD Unavailable [phone] Reason for Visit * Reason Onset Date Comments Med Refill 01/18/2025 Encounter Details Date Type Department Care Team (Late Contact Info) Description 01/18/2025 Refill [facility] [place] [facility] 112 [facility] 110 [place] [address] Ama Garcia LPN 112 [place] [address] GERD without esophagitis; Primary hypertension ; Pure hypercholesterolemia, unspecified Social History Tobacco Use Types Packs/Day Years [...] 10:00 AM EDT Office Visit [facility] [place] [facility] 112 [facility] 110 [place] [address] Adarsh Manrique MD 112 [facility] 110 [place] [address] 02/05/2025 2:15 PM EDT Office Visit [facility] Eye [address] [place] [address] [place] [address] Raffaele Castillo, DO [address] [place] [address] documented as of this encounter Visit Diagnoses Diagnosis GERD without esophagitis Esophageal reflux Primary hypertension Unspecified essential hypertension Pure hypercholesterolemia, unspecified documented in this encounter Additional Health Concerns Assessment Noted Time PHQ-9 Depression Total Score: 0 07/27/19 25 9:00 AM EST documented as of this encounter Care Teams Surgical Attendant Relationship Specialty Start Date End Date Adarsh Manrique MD 112 [facility] 110 [place] [address] PCP - General Internal Medicine 10/23/22 Adarsh Manrique MD 112 [facility] 110 [place] [address] PCP - ACO Reach 10/22/22 documented as of this encounter
--- OUTSIDE RECORDS SUMMARY | 2025-01-23 09:42 | XMS_ITS | Encounter Summary ---
Author Organization [facility] Address [address] [place] [address] Care Team Providers Care Registered Dental Hygienist Name Role Phone Adarsh Manrique MD Primary Care Provider [phone] Adarsh Manrique MD Unavailable [phone] Kelly Nice ASSISTANT WAREHOUSE MANAGER Unavailable [phone] Encounter Details Date Type Department Care Team (Late st Contact Info) Description 07/14/2023 Clinisync Result Encounter N[facility] External Department Unsolicited [...] Office Visit [facility] 112 [facility] 110 [place] [address] Adarsh Manrique MD 112 [facility] 110 [place], [place] [address] 02/05/2025 2:15 PM EDT Office Visit [facility] Eye [facility] [address] [place] [address] Raffaele Castillo, DO [address] [place] [address] documented as of this encounter Procedures Procedure Name Priority Date/Time Associated Diagnosis Comments CA ECHO DOPPLER COMPLETE 07/14/2023 8:02 PM EST documented in this encounter Results * CA ECHO DOPPLER COMPLETE (07/14/2023 8:02 PM EST) Anatomical Region Laterality Modality Other 07/14/2023 8:02 PM EST Narrative 07/14/2023 8:02 PM EST [address] [address] Cardiology Report Signed Patient: JEANNETTE BRIGHT MR#: [id number] : 1945 Acct:[id number] Age/Sex: 78 / F ADM Date: 07/14/23 Loc: CARD Attending Dr: CONNER VALERIO Ordering Physician: CONNER VALERIO Date of Service: 07/14/23 Procedure(s): CA echo doppler complete Accession Number(s): [id number] cc: CONNER VALERIO; ADARSH MANRIQUE Patient Name: JEANNETTE BRIGHT MR#: [id number] : 1945 Exam Date: 07/14/2023 Ordering Doctor: CONNER VALERIO M.D. ECHOCARDIOGRAM REPORT PROCEDURE: CA ECHO DOPPLER COMPLETE INDICATIONS: Abnormal ECG COMPARISON: None. DESCRIPTION: COMPLETE ECHOCARDIOGRAM Real-time transthoracic echocardiography with 2D, M-mode, spectral and color flow Doppler performed. QUALITY: Technical quality was good. 60 , 160#, BSA 1.70 m2 LEFT VENTRICLE: Normal chamber size. Thickened septal wall. Normal systolic function. LV EF: Normal left ventricular ejection fraction, (>55%). DIASTOLIC: Diastolic function is indeterminate. ATRIAL SEPTUM: Visually appears intact. LEFT ATRIUM: Moderate dilatation. RIGHT ATRIUM: Mild dilatation. RIGHT VENTRICLE: Normal chamber size. Normal right ventricular systolic function. TRICUSPID VALVE: Normal mobility and thickness. No stenosis with mild regurgitation. No evidence of pulmonary hypertension. RVSP 33 mmHg MITRAL VALVE: Mildly thickened with normal mobility. No evidence of mitral valve stenosis. There is no mitral annular calcification. Trivial mitral regurgitation. AORTIC VALVE: Normal trileaflet appearance. No visible sclerosis. Normal leaflet mobility. No evidence of aortic valve stenosis. No aortic regurgitation. AORTIC ROOT: Normal diameter and appearance. PULMONIC VALVE: Normal thickness and mobility. No stenosis. Trivial regurgitation. PERICARDIUM: Small circumferential pericardial effusion. IVC: Collapses with inspirations. IVC is normal in size. PLEURA: CONCLUSION: 1. Normal ventricular size and systolic function. 2. No significant valvular dysfunction. 3. Mild to moderate biatrial dilatation. 4. Normal right-sided pressures. 5. Small circumferential pericardial effusion. Adult Echocardiography Procedure Report Left Ventricle LVEDD (3.7 - 5.6 cm): 4.06 cm LVESD (2.2 - 4.0 cm): 2.29 cm LVIVS thickness (0.6 - 1.2 cm): 1.16 cm LVPW thickness (0.5 - 1.0 cm): 0.95 cm e': 0.05 m/s E - e': 12.68 LVOT Max Gradient: 3.59 mm[Hg] LVOT Area (cm2): 0.95 m/s Peak Velocity (LVOT): 0.95 m/s Mean Velocity (LVOT): 0.55 m/s LVOT Diameter 2.04 cm Left Atrium LA Volume Index (2D A2C): 23.02 ml/m2 Left Atrium Systolic Dimension: 3.72 cm Mitral Valve MV E to A Ratio: 0.63 Mitral Valve A-Wave Peak Velocity: 1.05 m/s Mitral Valve E-Wave Peak Velocity: 0.66 m/s Right Ventricle Aorta AO Root Diam: 3.35 cm Ascending Ao Diam: 2.82 cm Aortic Valve AoV Area (Peak Esdras): 2.55 cm2, 2.55 cm2 AoV Area (VTI): 2.49 cm2, 2.49 cm2 Peak Velocity(Antegrade Flow): 1.22 m/s Peak Gradient(Antegrade Flow): 5.92 mm[Hg] Mean Velocity(Antegrade Flow): 0.74 m/s Mean Gradient(Antegrade Flow): 2.60 mm[Hg] Velocity Time Integral: 26.34 cm Tricuspid Valve Peak Velocity (Regurgitant Flow): 2.73 m/s, 2.69 m/s Pulmonic Valve Peak Gradient: 2.77 mm[Hg], 4.01 mm[Hg] Right Atrium Right Atrium Systolic Pressure: 35.75 ml, 35.75 ml Dictated by: Andrea Swenson M.D. on 07/14/2023 at 19:57 Approved by: Andrea Swenson M.D. on 07/14/2023 at 20:01 Dictated By: ANDREA SWENSON Signed By: 07/14/232001 DD/ 01 TD/TT: Golf Professional: Procedure Note Radiology, Radiologist, MD - 07/14/2023 [place] [address] Cardiology Report Signed Patient: JEANNETTE BRIGHT GMR#: [id number] : 1945cct:[id number] Age/Sex: 78 / FADM Date: 07/14/23 Loc: CARD Attending Dr: CONNER VALERIO Ordering Physician: CONNER VALERIO Date of Service: 07/14/23 Procedure(s): CA echo doppler complete Accession Number(s): [id number] cc: CONNER VALERIO; ADARSH MANRIQUE Patient Name: JEANNETTE BRIGHT MR#: [id number] : 1945 Exam Date: 07/14/2023 Ordering Doctor: CONNER VALERIO M.D. ECHOCARDIOGRAM REPORT PROCEDURE: CA ECHO DOPPLER COMPLETE INDICATIONS: Abnormal ECG COMPARISON: None. DESCRIPTION: COMPLETE ECHOCARDIOGRAM Real-time transthoracic echocardiography with 2D, M-mode, spectral and color flow Dopplerperformed. QUALITY: Technical quality was good. 60 , 160#, BSA 1.70 m2 LEFT VENTRICLE: Normal chamber size. Thickened septal wall. Normal systolic function. LV EF: Normal left ventricular ejection fraction, (>55%). DIASTOLIC: Diastolic function is indeterminate. ATRIAL SEPTUM: Visually appears intact. LEFT ATRIUM: Moderate dilatation. RIGHT ATRIUM: Mild dilatation. RIGHT VENTRICLE: Normal chamber size. Normal right ventricularsystolic function. TRICUSPID VALVE: Normal mobility and thickness. No stenosis with mild regurgitation. No evidence of pulmonary hypertension. RVSP 33 mmHg MITRAL VALVE: Mildly thickened with normal mobility. No evidence of mitral valve stenosis. There is no mitral annular calcification. Trivial mitral regurgitation. AORTIC VALVE: Normal trileaflet appearance. No visible sclerosis.Normal leaflet mobility. No evidence of aortic valve stenosis. No aortic regurgitation. AORTIC ROOT: Normal diameter and appearance. PULMONIC VALVE: Normal thickness and mobility. No stenosis. Trivial regurgitation. PERICARDIUM: Small circumferential pericardial effusion. IVC: Collapses with inspirations. IVC is normal in size. PLEURA: CONCLUSION: 1. Normal ventricular size and systolic function. 2. No significant valvular dysfunction. 3. Mild to moderate biatrial dilatation. 4. Normal right-sided pressures. 5. Small circumferential pericardial effusion. Adult Echocardiography Procedure Report Left Ventricle LVEDD (3.7 - 5.6 cm): 4.06 cm LVESD (2.2 - 4.0 cm): 2.29 cm LVIVS thickness (0.6 - 1.2 cm): 1.16 cm LVPW thickness (0.5 - 1.0 cm): 0.95 cm e': 0.05 m/s E - e': 12.68 LVOT Max Gradient: 3.59 mm[Hg] LVOT Area (cm2): 0.95 m/s Peak Velocity (LVOT): 0.95 m/s Mean Velocity (LVOT): 0.55 m/s LVOT Diameter 2.04 cm Left Atrium LA Volume Index (2D A2C): 23.02 ml/m2 Left Atrium Systolic Dimension: 3.72 cm Mitral Valve MV E to A Ratio: 0.63 Mitral Valve A-Wave Peak Velocity: 1.05 m/s Mitral Valve E-Wave Peak Velocity: 0.66 m/s Right Ventricle Aorta AO Root Diam: 3.35 cm Ascending Ao Diam: 2.82 cm Aortic Valve AoV Area (Peak Esdras): 2.55 cm2, 2.55 cm2 AoV Area (VTI): 2.49 cm2, 2.49 cm2 Peak Velocity(Antegrade Flow): 1.22 m/s Peak Gradient(Antegrade Flow): 5.92 mm[Hg] Mean Velocity(Antegrade Flow): 0.74 m/s Mean Gradient(Antegrade Flow): 2.60 mm[Hg] Velocity Time Integral: 26.34 cm Tricuspid Valve Peak Velocity (Regurgitant Flow): 2.73 m/s, 2.69 m/s Pulmonic Valve Peak Gradient: 2.77 mm[Hg], 4.01 mm[Hg] Right Atrium Right Atrium Systolic Pressure: 35.75 ml, 35.75 ml Dictated by: Andrea Swenson M.D. on 07/14/2023 at 19:57 Approved by: Andrea Swenson M.D. on 07/14/2023 at 20:01 Dictated By: ANDREA SWENSON Signed By:07/14/232001 DD/ 01 TD/TT: Golf Professional: us Generic External Data Provider [facility] Final Result documented in this encounter Visit Diagnoses Not on filedocumented in this encounter Care Teams Registered Dental Hygienist Relationship Specialty Start Date End Date Adarsh Manrique MD [address] [facility] 110 [place] [address] PCP - General Internal Medicine 10/23/22 Adarsh Manrique MD [address] [facility] 110 [place] [address] PCP - ACO Reach 10/22/22 Kelly Nice, ASSISTANT WAREHOUSE MANAGER [address] [place] [address] Merchandise Examiner Family Medicine 10/25/24 11/14/24 documented as of this encounter
--- OUTSIDE RECORDS SUMMARY | 2025-01-23 09:42 | XMS_ITS | Encounter Summary ---
Author Organization [facility] Address [address] [place] [address] Care Team Providers Care Feather Cutting Machine Feeder Name Role Phone Adarsh Manrique MD Primary Care Provider [phone] Adarsh Manrique MD Unavailable [phone] Kelly Nice SHIPWRIGHT APPRENTICE Unavailable [phone] Encounter Details Date Type Department Care Team (Late Contact Info) Description 08/07/2024 Abstract [facility] [place] [facility] [address] [facility] 110 [place] [address] Adarsh Manrique MD [address] [facility] 110 [place], [place] [address] Social History Tobacco Use Types Packs/Day Years [...] 10:00 AM EDT Office Visit [facility] [address] [facility] 110 [place] [address] Adarsh Manrique MD [address] [facility] 110 [place] [address] 02/05/2025 2:15 PM EDT Office Visit [facility] Eye [address] [place] [address] Raffaele Castillo, [address] [place] [address] documented as of this encounter Visit Diagnoses Not on filedocumented in this encounter Additional Health Concerns Assessment Noted Time PHQ-9 Depression Total Score: 0 07/27/19 25 9:00 AM EST documented as of this encounter Care Teams Feather Cutting Machine Feeder Relationship Specialty Start Date End Date Adarsh Manrique MD [address] [facility] 110 [place] [address] PCP - General Internal Medicine 10/23/22 Adarsh Manrique MD 112 [facility] 110 [place] [address] PCP - ACO Reach 10/22/22 Kelly Nice, JOSE MANUEL [address] [place] [address] Or First Assist Registered Nurse Family Medicine 10/25/24 11/14/24 documented as of this encounter
--- OUTSIDE RECORDS SUMMARY | 2025-01-23 09:42 | XMS_ITS | Encounter Summary ---
Author Organization [facility] Address [address] [place] [address] Care Team Providers Care Traffic Administrator Name Role Phone Adarsh Manrique MD Primary Care Provider Adarsh Manrique MD Unavailable [phone] Kelly Nice PORTABLE FEED MILL OPERATOR Unavailable [phone] Encounter Details Date Type Department Care Team (Late st Contact Info) Description 12/28/2023 Abstract [facility] [place] [facility] 112 [facility] 110 [place] [address] dAarsh Manrique MD 112 [facility] 110 [place], [place] [address] Social History Tobacco Use Types Packs/Day Years [...] Visit [facility] [place] [facility] [address] [facility] 110 [place] [address] Adarsh Manrique MD 112 [facility] 110 [place], [place] [address] 02/05/2025 2:15 PM EDT Office Visit [facility] Eye [address] [place] [address] Raffaele Castillo DO [address] [place] [address] documented as of this encounter Visit Diagnoses Not on filedocumented in this encounter Care Teams Traffic Administrator Relationship Specialty Start Date End Date Adarsh Manrique MD [address] [facility] [address] [place], [place] [phone] PCP - General Internal Medicine 10/23/22 Adarsh Manrique MD [address] [facility] 110 [place] [address] PCP - ACO Reach 10/22/22 Kelly Nice, JOSE MANUEL [address] [place] [address] Cleat Blanker Family Medicine 10/25/24 11/14/24 documented as of this encounter
--- OUTSIDE RECORDS SUMMARY | 2025-01-23 09:42 | XMS_ITS | Encounter Summary ---
Author Organization [facility] Address [address] [place] [address] Care Team Providers Care Pole Shaver Name Role Phone Adarsh Manrique MD Primary Care Provider [phone] Adarsh Manrique MD Unavailable [phone] Kelly Nice JTAC Unavailable [phone] Encounter Details Date Type Department Care Team (Late Contact Info) Description 08/21/2024 Abstract [facility] [address] [facility] 110 [place] [address] Adarsh Manrique MD [address] [facility] [place] 110 [place], [place] [address] Social History Tobacco Use Types Packs/Day Years [...] 10:00 AM EDT Office Visit [facility] [address] [facility] 110 [place] [address] Adarsh Manrique MD [address] [facility] [place] 110 [place] [address] 02/05/2025 2:15 PM EDT Office Visit [facility] Eye [address] [place] [address] Raffaele Castillo, [address] [place] [address] documented as of this encounter Visit Diagnoses Not on filedocumented in this encounter Additional Health Concerns Assessment Noted Time PHQ-9 Depression Total Score: 0 07/27/19 25 9:00 AM EST documented as of this encounter Care Teams Pole Shaver Relationship Specialty Start Date End Date Adarsh Manrique MD [address] [facility] 110 [place] [address] PCP - General Internal Medicine 10/23/22 Adarsh Manrique MD 112 [facility] 110 [place] [address] PCP - ACO Reach 10/22/22 Kelly Nice, JOSE MANUEL [address] [place] [place] [address] Supervisory Aide Family Medicine 10/25/24 11/14/24 documented as of this encounter
--- OUTSIDE RECORDS SUMMARY | 2025-01-23 09:42 | XMS_ITS | Encounter Summary ---
Author Organization [facility] Address [address] [place] [address] Care Team Providers Care Fabric Inspector Name Role Phone Adarsh Manrique MD Primary Care Provider [phone] Adarsh Manrique MD Unavailable [phone] Kelly Nice AVIONICS SHOP SUPERVISOR Unavailable [phone] Encounter Details Date Type Department Care Team (Late st Contact Info) Description 06/12/2024 Abstract [facility] [place] [facility] 112 [facility] 110 [place] [address] Adarsh Manrique MD 112 [facility] 110 [place], [place] [address] Social History Tobacco Use Types Packs/Day Years [...] Visit [facility] [place] [facility] [address] [facility] 110 [place] [address] Adarsh Manrique MD 112 [facility] 110 [place], [place] [address] 02/05/2025 2:15 PM EDT Office Visit [facility] Eye [address] [place] [address] Raffaele Castillo DO [address] [place] [address] documented as of this encounter Visit Diagnoses Not on filedocumented in this encounter Care Teams Fabric Inspector Relationship Specialty Start Date End Date Adarsh Manrique MD [address] [place] [address] [place], [place] [address] PCP - General Internal Medicine 10/23/22 Adarsh Manrique MD [address] [facility] 110 [place] [address] PCP - ACO Reach 10/22/22 Kelly Nice, JOSE MANUEL [address] [place] [address] Sericulture Teacher Family Medicine 10/25/24 11/14/24 documented as of this encounter
--- OUTSIDE RECORDS SUMMARY | 2025-01-23 09:42 | XMS_ITS | Encounter Summary ---
Author Organization [facility] Address [address] [facility] [place] [address] Care Team Providers Care Form Setter Steel Pan Forms Name Role Phone Adarsh Manrique MD Primary Care Provider [phone] Adarsh Manrique MD Unavailable [phone] Kelly Nice PETROLEUM GEOLOGIST Unavailable [phone] Encounter Details Date Type Department Care Team (Late Contact Info) Description 08/18/2024 Abstract [facility] [place] [facility] [address] [facility] 110 [place] [address] Adarsh Manrique MD [address] [facility] 110 [place], [place] [phone] Social History Tobacco Use Types Packs/Day Years [...] 10:00 AM EDT Office Visit [facility] [facility] [address] [facility] 110 [place] [address] Adarsh Manrique MD [address] [facility] 110 [place] [address] 02/05/2025 2:15 PM EDT Office Visit [facility] Eye [address] [place] [address] Raffaele Castillo, [address] [place] [address] documented as of this encounter Visit Diagnoses Not on filedocumented in this encounter Additional Health Concerns Assessment Noted Time PHQ-9 Depression Total Score: 0 07/27/19 25 9:00 AM EST documented as of this encounter Care Teams Form Setter Steel Pan Forms Relationship Specialty Start Date End Date Adarsh Manrique MD [address] [facility] 110 [place] [address] PCP - General Internal Medicine 10/23/22 Adarsh Manrique MD 112 [facility] 110 [place] [address] PCP - ACO Reach 10/22/22 Kelly Nice, JOSE MANUEL [address] [place] [address] Shovel Handle Assembler Family Medicine 10/25/24 11/14/24 documented as of this encounter
--- OUTSIDE RECORDS SUMMARY | 2025-01-23 09:42 | XMS_ITS | Clinical Summary ---
Author Organization [facility] Address [address] [facility] [place] [address] Phone Care Team Providers Care Brick Extruder Operator Name Role Phone Unavailable Primary Care Provider Unavailabl e Social History Tobacco Use Types Packs/Day Years Used Date Smoking Tobacco: Never Assessed Comments Unknown Sex and Gender Information Value Date Recorded Sex Assigned at Not on file Legal Sex Female 1:04 PM EST Gender Identity Not on file Sexual Orientation Not on file Plan of Treatment Not on file
--- OUTSIDE RECORDS SUMMARY | 2025-01-23 09:42 | XMS_ITS | Encounter Summary ---
Author Organization [facility] Address [address] [place] [address] Care Team Providers Care Sound Cutter Name Role Phone Adarsh Manrique MD Primary Care Provider [phone] Adarsh Manrique MD Unavailable [phone] Kelly Nice RETAIL LOSS PREVENTION INVESTIGATOR Unavailable [phone] Encounter Details Date Type Department Care Team (Late st Contact Info) Description 03/09/2023 Orders Only [facility] [address] [facility] [address] [place] [address] Sari Stephen, GRAIN COMBINE DRIVER [address] [place] [address] Social History Tobacco Use Types Packs/Day Years Used Date Smoking Tobacco: Never Smokeless Tobacco: Never Comments Unknown Sex and Gender Information Value Date Recorded Sex Assigned at Not on file Legal Sex Female 7:07 PM EDT Gender Identity Not on file Sexual Orientation Not on file documented as of this encounter Plan of Treatment Upcoming Encounters Date Type Department Care Team (Late st Contact Info) Description 01/31/2025 10:00 AM EDT Office Visit [facility] [place] [facility] [address] [facility] 110 [place] [address] Adarsh Manrique MD 112 [facility] 110 [place], [place] [address] 02/05/2025 2:15 PM EDT Office Visit [facility] Eye [address] [place] [address] Raffaele Castillo DO [address] [place] [address] documented as of this encounter Visit Diagnoses Not on filedocumented in this encounter Care Teams Sound Cutter Relationship Specialty Start Date End Date Adarsh Manrique MD [address] [facility] 110 [place] [address] PCP - General Internal Medicine 10/23/22 Adarsh Manrique MD [address] [facility] 110 [place] [address] PCP - ACO Reach 10/22/22 Kelly Nice, JOSE MANUEL [address] [place] [address] Deck Scaler Family Medicine 10/25/24 11/14/24 documented as of this encounter
--- OUTSIDE RECORDS SUMMARY | 2025-01-23 09:42 | XMS_ITS | Encounter Summary ---
Author Organization [facility] Address [address] [place] [address] Care Team Providers Care Credit Collections Clerk Name Role Phone Adarsh Manrique MD Primary Care Provider [phone] Adarsh Manrique MD Unavailable [phone] Kelly Nice WINDOW MACHINE OPERATOR Unavailable [phone] Encounter Details Date Type Department Care Team (Late st Contact Info) Description 07/16/2023 Orders Only [facility] [place] [facility] [address] [facility] 110 [place] [address] A, Unknown Practice [address] [place], [place] [address] Social History Tobacco Use Types Packs/Day Years [...] [facility] [address] [place] [address] Adarsh Manrique MD [address] [facility] 110 [place] [address] 02/05/2025 2:15 PM EDT Office Visit [facility] Eye [address] [place] [address] Raffaele Castillo DO [address] [place] [address] documented as of this encounter Procedures Procedure Name Priority Date/Time Associated Diagnosis Comments XR CHEST 2 VIEWS Routine 07/15/2023 8:29 AM EST SCANNED LABS Routine 07/15/2023 8:15 AM EST documented in this encounter Results * XR chest 2 views (07/15/2023 8:29 AM EST) Anatomical Region Laterality Modality Chest Radiographic Beatriz ging us Unknown Practice A IMG XR PROCEDURES Final Resul t * SCANNED LABS (07/15/2023 8:15 AM EST) us Unknown Practice A LAB CHG PERFORMABLES Final Re sult documented in this encounter Visit Diagnoses Not on filedocumented in this encounter Care Teams Credit Collections Clerk Relationship Specialty Start Date End Date Adarsh Manrique MD [address] [facility] 110 [place] [address] PCP - General Internal Medicine 10/23/22 Adarsh Manrique MD [address] [facility] 110 [place] [address] PCP - ACO Reach 10/22/22 Kelly Nice, WINDOW MACHINE OPERATOR [address] [place] [address] Day Haul Or Farm Charter Bus Driver Family Medicine 10/25/24 11/14/24 documented as of this encounter
--- OUTSIDE RECORDS SUMMARY | 2025-01-23 09:42 | XMS_ITS | Encounter Summary ---
Author Organization [facility] Address [address] [place] [address] Care Team Providers Care Hospital Aide Name Role Phone Adarsh Manrique MD Primary Care Provider Adarsh Manrique MD Unavailable [phone] Kelly Nice OPERATIONAL RISK CONSULTANT Unavailable [phone] Encounter Details Date Type Department Care Team (Late st Contact Info) Description 07/03/2024 Abstract [facility] 112 [facility] 110 [place] [address] Adarsh Manrique MD 112 [facility] 110 [place], [place] [id number] Social History Tobacco Use Types Packs/Day Years [...] Visit [facility] [place] [facility] [address] [facility] 110 [place] [address] Adarsh Manrique MD 112 [facility] 110 [place], [place] [id number] 02/05/2025 2:15 PM EDT Office Visit [facility] [address] [place] [phone] Raffaele Castillo DO [address] [place] [address] documented as of this encounter Visit Diagnoses Not on filedocumented in this encounter Care Teams Hospital Aide Relationship Specialty Start Date End Date Adarsh Manrique MD [address] [place], [place] [id number] PCP - General Internal Medicine 10/23/22 Adarsh Manrique MD [address] [facility] 110 [place] [address] PCP - ACO Reach 10/22/22 Kelly Nice, JOSE MANUEL [address] [place] [address] Ultrasound Technologist Sonographer Family Medicine 10/25/24 11/14/24 documented as of this encounter
--- OUTSIDE RECORDS SUMMARY | 2025-01-23 09:42 | XMS_ITS | Encounter Summary ---
Author Organization [facility] Address [address] [place] [address] Care Team Providers Care Rigger Up Name Role Phone Adarsh Manrique MD Primary Care Provider Adarsh Manrique MD Unavailable [phone] Kelly Nice BIAS MACHINE OPERATOR Unavailable [phone] Encounter Details Date Type Department Care Team (Late st Contact Info) Description 06/21/2024 Abstract [facility] 112 [facility] 110 [place] [address] Adarsh Manrique MD 112 [facility] 110 [place], [place] [address] Social History Tobacco Use Types Packs/Day Years [...] Visit [facility] [place] [facility] Bridget 112 [address] [facility] 110 [place] [address] Adarsh Manrique MD 112 [facility] 110 [place], [place] [id number] 02/05/2025 2:15 PM EDT Office Visit [facility] [address] [place] [phone] Raffaele Castillo DO [address] [place] [address] documented as of this encounter Visit Diagnoses Not on filedocumented in this encounter Care Teams Rigger Up Relationship Specialty Start Date End Date Adarsh Manrique MD [address] [place], [place] [address] PCP - General Internal Medicine 10/23/22 Adarsh Manrique MD [address] [facility] 110 [place] [address] PCP - ACO Reach 10/22/22 Kelly Nice, JOSE MANUEL [address] [place] [address] Beauty Director Family Medicine 10/25/24 11/14/24 documented as of this encounter
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
--- OUTSIDE RECORDS SUMMARY | 2025-01-23 09:42 | XMS_ITS | Clinical Summary ---
Author Organization [facility] Address [id number] [address] [place] [address] Care Team Providers Care Strip Winder Name Role Phone Adarsh Manrique MD Primary Care Provider [phone] Allergies No known active allergies Medications aspirin 81 mg Take 81 mg by mouth in the morning. Active cholecalciferol , vitamin D3, 2,000 units tablet Take by mouth daily. Active MULTIVITAMIN-IR ON-FOLIC ACID ORAL Take by mouth. Activ e latanoprost (XALATAN) 0.005 % ophthalmic solution Administer 1 drop into the left eye in the morning. Active atorvastatin (LIPITOR) 40 mg tablet Take 40 mg by mouth in the morning. Active topiramate (TOPAMAX) 25 mg capsule Take 25 mg by mouth in the morning. Active calcium citrate-vitamin D3 (CITRACAL+D) 315-200 mg-units per tablet Take 1 tablet by mouth in the morning and 1 tablet before bedtime. Active omeprazole (PriLOSEC) 40 mg capsule Take 40 mg by mouth in the morning. Active Active Problems No known active problems Family History Medical History Relation Name Comments Cancer Brother Blindness Father Glaucoma Father Cancer Sister Relation Name Status Comments Brother Father Mother Sister Alive Social History Tobacco Use Types Packs/Day Years Used Date Smoking Tobacco: Never Childcare Answer Date Recorded Childcare Unknown 11/09/2018 Employment Answer Date Recorded Employment Unknown 11/09/2018 Purpose - Life Answer Date Recorded Purpose and direction in life Unknown Comments Unknown Sex and Gender Information Value Date Recorded Sex Assigned at Not on file Legal Sex Female 11:27 AM EDT Gender Identity Not on file Sexual Orientation Not on file Plan of Treatment Health Maintenance Due Date Last Done Comments Depression Screening 1957 Tobacco Screening 1957 DTaP,Tdap and Td Vaccines (1 - Tdap) 1965 Fall Risk Screening 2011 COVID-19 Vaccine (2023-2 5 season) 2024 12/24/2021, 05/01/2021, 08/15/2020, Additional history exists Influenza Vaccine 01/29/2025 05/01/2021, , 03/04/2020, Additional history exists Zoster (Shingles) Vaccine Completed 2018, 01/11/2018, 12/31/2014 Medical Devices Not on file Insurance [address] [address] [facility] MEDICARE Care Teams Strip Winder Relationship Specialty Start Date End Date Adarsh Manrique MD [facility] 110 [place] [address] PCP - General Internal Medicine 02/20/22
--- OUTSIDE RECORDS SUMMARY | 2025-01-23 09:42 | XMS_ITS | Encounter Summary ---
Author Organization [facility] Address [address] [place] [address] Care Team Providers Care Entrepreneurial Finance Professor Name Role Phone Adarsh Manrique MD Primary Care Provider [phone] Adarsh Manrique MD Unavailable [phone] Kelly Nice TRACK MOVING MACHINE OPERATOR Unavailable [phone] Encounter Details Date Type Department Care Team (Late st Contact Info) Description 06/29/2023 Orders Only [facility] [address] [facility] 110 [place] [address] Unallocated, Noms Provider, [address] [place], [place] [phone] Social History Tobacco Use Types Packs/Day Years [...] Visit [facility] [place] [address] [place] [address] [place] [address] Adarsh Manrique MD [address] [facility] 110 [place] [address] 02/05/2025 2:15 PM EDT Office Visit [facility] [address] [place] [address] Raffaele Castillo DO [address] [place] [address] documented as of this encounter Procedures Procedure Name Priority Date/Time Associated Diagnosis Comments ELECTROCARDIOGRAM REPORT Routine 024 9:24 AM EST HOLTER MONITOR 48HR Routine 06/10/2023 8 :14 AM EST documented in this encounter Results * Electrocardiogram Report (06/28/2023 9:24 AM EST) us Noms Provider Unallocated MD IN CLINIC/BEDSIDE O RDERABLES Final Result * HOLTER MONITOR 48HR (06/10/2023 8:14 AM EST) Anatomical Region Laterality Modality Radiographic Beatriz ging us Noms Provider Unallocated MD IMG XR PROCEDURES F inal Result documented in this encounter Visit Diagnoses Not on filedocumented in this encounter Care Teams Entrepreneurial Finance Professor Relationship Specialty Start Date End Date Adarsh Manrique MD [address] [facility] 110 [place] [address] PCP - General Internal Medicine 10/23/22 Adarsh Manrique MD [address] [facility] 110 [place] [address] PCP - ACO Reach 10/22/22 Kelly Nice, TRACK MOVING MACHINE OPERATOR [address] [place] [address] Chairman Family Medicine 10/25/24 11/14/24 documented as of this encounter
--- OUTSIDE RECORDS SUMMARY | 2025-01-23 09:42 | XMS_ITS | Encounter Summary ---
Author Organization [facility] Address [address] [facility] [place] [address] Care Team Providers Care Brim Stitcher Name Role Phone Adarsh Manrique MD Primary Care Provider [phone] Adarsh Manrique MD Unavailable [phone] Kelly Nice SYSTEM SUPPORT ADMINISTRATOR Unavailable [phone] Encounter Details Date Type Department Care Team (Late Contact Info) Description 08/31/2024 Abstract [facility] [address] [facility] 110 [place] [address] Adarsh Manrique MD [address] [facility] 110 [place], [place] [address] Social History Tobacco Use Types Packs/Day Years [...] [facility] [address] [facility] [address] [place] [address] Adarsh Manrique MD [address] [facility] 110 [place] [address] 02/05/2025 2:15 PM EDT Office Visit [facility] [address] [place] [address] Raffaele Castillo, [address] [place] [address] documented as of this encounter Visit Diagnoses Not on filedocumented in this encounter Additional Health Concerns Assessment Noted Time PHQ-9 Depression Total Score: 0 07/27/19 25 9:00 AM EST documented as of this encounter Care Teams Brim Stitcher Relationship Specialty Start Date End Date Adarsh Manrique MD [address] [facility] 110 [place] [address] PCP - General Internal Medicine 10/23/22 Adarsh Manrique MD 112 [facility] 110 [place] [address] PCP - ACO Reach 10/22/22 Kelly Nice, JOSE MANUEL [address] [place] [address] Implementation Services Analyst Family Medicine 10/25/24 11/14/24 documented as of this encounter
--- OUTSIDE RECORDS SUMMARY | 2025-01-23 09:42 | XMS_ITS | Encounter Summary ---
Author Organization [facility] Address [address] [place] [address] Care Team Providers Care Textile Coating Machine Operator Name Role Phone Adarsh Manrique MD Primary Care Provider [phone] Adarsh Manrique MD Unavailable [phone] Kelly Nice VICE PRESIDENT OF TALENT MANAGEMENT Unavailable [phone] Encounter Details Date Type Department Care Team (Late st Contact Info) Description 06/17/2023 Abstract [facility] [place] [facility] 112 [facility] 110 [place] [address] Adarsh Manrique MD 112 [facility] 110 [place], [place] [address] Social History Tobacco Use Types Packs/Day Years [...] Visit [facility] [place] [facility] [address] [facility] 110 [place] [address] Adarsh Manrique MD 112 [facility] 110 [place], [place] [address] 02/05/2025 2:15 PM EDT Office Visit [facility] [address] [place] [phone] Raffaele Castillo DO [address] [place] [address] documented as of this encounter Visit Diagnoses Not on filedocumented in this encounter Care Teams Textile Coating Machine Operator Relationship Specialty Start Date End Date Adarsh Manrique MD [address] [place], [place] [phone] PCP - General Internal Medicine 10/23/22 Adarsh Manrique MD [address] [facility] 110 [place] [address] PCP - ACO Reach 10/22/22 Kelly Nice, JOSE MANUEL [address] [place] [address] Forest Nursery Supervisor Family Medicine 10/25/24 11/14/24 documented as of this encounter
--- OUTSIDE RECORDS SUMMARY | 2025-01-23 09:42 | XMS_ITS | Encounter Summary ---
Author Organization [facility] Address [address] [place] [address] Care Team Providers Care Lime Mixer Name Role Phone Adarsh Manrique MD Primary Care Provider Adarsh Manrique MD Unavailable [phone] Kelly Nice CLINICAL EDITOR Unavailable [phone] Encounter Details Date Type Department Care Team (Late st Contact Info) Description 06/18/2023 Abstract [facility] [place] [facility] 112 [facility] 110 [place] [address] Adarsh Manrique MD 112 [facility] 110 [place], [place] [address] Social History Tobacco Use Types Packs/Day Years [...] Visit [facility] [place] [facility] Bridget [address] [facility] 110 [place] [address] Adarsh Manrique MD 112 [facility] 110 [place], [place] [address] 02/05/2025 2:15 PM EDT Office Visit [facility] [address] [place] [address] Raffaele Castillo DO [address] [place] [address] documented as of this encounter Visit Diagnoses Not on filedocumented in this encounter Care Teams Lime Mixer Relationship Specialty Start Date End Date Adarsh Manrique MD [address] [place], [place] [address] PCP - General Internal Medicine 10/23/22 Adarsh Manrique MD [address] [facility] 110 [place] [address] PCP - ACO Reach 10/22/22 Kelly Nice, JOSE MANUEL [address] [place] [address] Farm Field Manager Family Medicine 10/25/24 11/14/24 documented as of this encounter
--- OUTSIDE RECORDS SUMMARY | 2025-01-23 09:42 | XMS_ITS | Encounter Summary ---
Author Organization [facility] Address [address] [place] [address] Care Team Providers Care Vacuum Extractor Operator Name Role Phone Adarsh Manrique MD Primary Care Provider [phone] Adarsh Manrique MD Unavailable [phone] Kelly Nice SOLDERER TORCH Unavailable [phone] Encounter Details Date Type Department Care Team (Late st Contact Info) Description 06/19/2024 Orders Only [facility] [place] [facility] [address] [facility] 110 [place] [address] Unallocated, Noms Provider, [address] [place], [place] [id number] Social History Tobacco Use Types Packs/Day Years [...] [place] [address] [facility] 110 [place] [address] Adarsh Manrique MD [address] [facility] 110 [place] [address] 02/05/2025 2:15 PM EDT Office Visit [facility] [address] [place] [address] Raffaele Castillo, DO [address] [place] [address] documented as of this encounter Procedures Procedure Name Priority Date/Time Associated Diagnosis Comments XR PELVIS 1-2 VIEWS Routine 06/19/2024 1 2:00 PM EST XR KNEE 4+ VIEWS RIGHT Routine 12:00 PM EST VITAMIN D Routine 06/19/2024 11:58 AM EST NICOTINE AND COTININE, SERUM/PLASMA Routine 06/19/2024 11:58 AM EST MRSA CULTURE Routine 06/19/2024 11:58 AM EST HEMOGLOBIN A1C Routine 06/19/2024 11:58 AM EST VITAMIN D Routine 06/19/2024 11:57 AM EST NICOTINE AND COTININE, SERUM/PLASMA Routine 06/19/2024 11:57 AM EST MRSA CULTURE Routine 06/19/2024 11:57 AM EST HEMOGLOBIN A1C Routine 06/19/2024 11:57 AM EST documented in this encounter Results * XR pelvis 1 or 2 views (06/19/2024 12:00 PM EST) Anatomical Region Laterality Modality Body, Pelvis Radiographic Beatriz ging us Noms Provider Unallocated MD IMG XR PROCEDURES F inal Result * XR knee 4+ views right (06/19/2024 12:00 PM EST) Anatomical Region Laterality Modality Lower Extremities, Knee Right Radiogra phic Imaging us Noms Provider Unallocated MD IMG XR PROCEDURES F inal Result * VITAMIN D (06/19/2024 11:58 AM EST) us Noms Provider Unallocated MD LAB BLOOD ORDERABLE S Final Result * Hemoglobin A1c (06/19/2024 11:58 AM EST) Blood Venous blood specimen / Unknown us Noms Provider Unallocated MD LAB BLOOD ORDERABLE S Final Result * NICOTINE AND COTININE, SERUM/PLASMA (06/19/2024 11:58 AM EST) us Noms Provider Unallocated MD LAB BODY FLUIDS AND STOOLS ORDERABLES Final Result * MRSA culture (06/19/2024 11:58 AM EST) Swab Nasopharyngeal structure / Unknown us Noms Provider Unallocated MD LAB MICROBIOLOGY - GENERAL ORDERABLES Final Result * Hemoglobin A1c (06/19/2024 11:57 AM EST) Blood Venous blood specimen / Unknown us Noms Provider Unallocated MD LAB BLOOD ORDERABLE S Final Result * NICOTINE AND COTININE, SERUM/PLASMA (06/19/2024 11:57 AM EST) us Noms Provider Unallocated MD LAB BODY FLUIDS AND STOOLS ORDERABLES Final Result * MRSA culture (06/19/2024 11:57 AM EST) Swab Nasopharyngeal structure / Unknown us Noms Provider Unallocated MD LAB MICROBIOLOGY - GENERAL ORDERABLES Final Result * VITAMIN D (06/19/2024 11:57 AM EST) us Noms Provider Unallocated MD LAB BLOOD ORDERABLE S Final Result documented in this encounter Visit Diagnoses Not on filedocumented in this encounter Care Teams Vacuum Extractor Operator Relationship Specialty Start Date End Date Adarsh Manrique MD [address] [facility] 110 [place] [address] PCP - General Internal Medicine 10/23/22 Adarsh Manrique MD [address] [facility] 110 [place] [address] PCP - ACO Reach 10/22/22 Kelly Nice, JOSE MANUEL [address] [place] [id number] Armor Reconnaissance Specialist Family Medicine 10/25/24 11/14/24 documented as of this encounter
--- OUTSIDE RECORDS SUMMARY | 2025-01-23 09:42 | XMS_ITS | Encounter Summary ---
Author Organization [facility] Address [address] [facility], [facility] [address] Care Team Providers Care Welder Shielded Metal Arc Name Role Phone Adarsh Manrique MD Primary Care Provider [phone] Adarsh Manrique MD Unavailable [phone] Kelly Nice TECHNICAL WRITER Unavailable [phone] Encounter Details Date Type Department Care Team (Late Contact Info) Description 09/15/2024 Abstract [facility] [place] [facility] [address] [facility] 110 [place] [address] Adarsh Manrique MD [address] [facility] 110 [place], [place] [id number] Social History Tobacco Use Types Packs/Day Years [...] 10:00 AM EDT [facility] Visit [facility] [address] [facility] 110 [place] [address] Adarsh Manrique MD [address] [facility] 110 [place] [address] 02/05/2025 2:15 PM EDT Office Visit [facility] [address] [place] [address] Raffaele Castillo, [address] [place] [address] documented as of this encounter Visit Diagnoses Not on filedocumented in this encounter Additional Health Concerns Assessment Noted Time PHQ-9 Depression Total Score: 0 07/27/19 25 9:00 AM EST documented as of this encounter Care Teams Welder Shielded Metal Arc Relationship Specialty Start Date End Date Adarsh Manrique MD [address] [facility] 110 [place] [address] PCP - General Internal Medicine 10/23/22 Adarsh Manrique MD 112 [facility] 110 [place] [address] PCP - ACO Reach 10/22/22 Kelly Nice, JOSE MANUEL [address] [place] [address] Filling [facility] Family [facility] 10/25/24 11/14/24 documented as of this encounter
--- OUTSIDE RECORDS SUMMARY | 2025-01-23 09:42 | XMS_ITS | Encounter Summary ---
Author Organization [facility] Address [address] [facility] [place] [address] Care Team Providers Care Screen Printing Stencil Preparer Name Role Phone Adarsh Manrique MD Primary Care Provider [phone] Adarsh Manrique MD Unavailable [phone] Kelly Nice PROJECTS MANAGER Unavailable [phone] Encounter Details Date Type Department Care Team (Late Contact Info) Description 08/30/2024 Abstract [facility] [place] [facility] [address] [facility] 110 [place] [address] Adarsh Manrique MD [address] [facility] 110 [place], [place] [id number] Social History Tobacco Use Types Packs/Day Years [...] 10:00 AM EDT Office Visit [facility] [address] [facility] 110 [place] [address] Adarsh Manrique MD [address] [facility] 110 [place] [address] 02/05/2025 2:15 PM EDT Office Visit [facility] [address] [place] [address] Raffaele Castillo, [address] [place] [address] documented as of this encounter Visit Diagnoses Not on filedocumented in this encounter Additional Health Concerns Assessment Noted Time PHQ-9 Depression Total Score: 0 07/27/19 25 9:00 AM EST documented as of this encounter Care Teams Screen Printing Stencil Preparer Relationship Specialty Start Date End Date Adarsh Manrique MD [address] [facility] 110 [place] [address] PCP - General Internal Medicine 10/23/22 Adarsh Manrique MD 112 [facility] 110 [place] [address] PCP - ACO Reach 10/22/22 Kelly Nice, JOSE MANUEL [address] [place] [address] Revenue Specialist Family Medicine 10/25/24 11/14/24 documented as of this encounter
--- OUTSIDE RECORDS SUMMARY | 2025-01-23 09:42 | XMS_ITS | Encounter Summary ---
Author Organization [facility] Address [address] [place] [address], [address] [place] [address] Care Team Providers Care Data Entry Assistant Name Role Phone Adarsh Manrique MD Primary Care Provider [phone] Encounter Details Date Type Department Care Team (Late st Contact Info) Description 12/22/2015 FollowUp Telephone Encounter [facility] [address] [address] [address] Hayley Holcomb, RN Social History Tobacco Use Types Packs/Day Years [...] as of this encounter Plan of Treatment Not on file documented as of this encounter Visit Diagnoses Not on filedocumented in this encounter Care Teams Data Entry Assistant Relationship Specialty Start Date End Date Adarsh Manrique MD PCP - General Internal Medicine 11/29/15 documented as of this encounter
--- OUTSIDE RECORDS SUMMARY | 2025-01-23 09:42 | XMS_ITS | Encounter Summary ---
Author Organization [facility] Address [address] [facility] [place] [address] Care Team Providers Care Water/Wastewater Project Manager Name Role Phone Adarsh Manrique MD Primary Care Provider [phone] Adarsh Manrique MD Unavailable [phone] Kelly Nice SEXUAL ASSAULT COUNSELLOR Unavailable [phone] Encounter Details Date Type Department Care Team (Late Contact Info) Description 08/16/2024 Abstract [facility] [place] [facility] [address] [facility] 110 [place] [address] Adarsh Manrique MD [address] [facility] 110 [place], [place] [phone] Social History Tobacco Use Types Packs/Day Years [...] 10:00 AM EDT Office [facility] [address] [facility] 110 [place] [address] Adarsh Manrique MD [address] [facility] 110 [place] [address] 02/05/2025 2:15 PM EDT Office Visit [facility] [address] [place] [address] Raffaele Castillo, [address] [place] [address] documented as of this encounter Visit Diagnoses Not on filedocumented in this encounter Additional Health Concerns Assessment Noted Time PHQ-9 Depression Total Score: 0 07/27/19 25 9:00 AM EST documented as of this encounter Care Teams Water/Wastewater Project Manager Relationship Specialty Start Date End Date Adarsh Manrique MD [address] [facility] 110 [place] [address] PCP - General Internal Medicine 10/23/22 Adarsh Manrique MD 112 [facility] 110 [place] [address] PCP - ACO Reach 10/22/22 Kelly Nice, JOSE MANUEL [address] [place] [address] Business Development Director Family Medicine 10/25/24 11/14/24 documented as of this encounter
--- OUTSIDE RECORDS SUMMARY | 2025-01-23 09:42 | XMS_ITS | Encounter Summary ---
Author Organization [facility] Address [address] [place] [address] Care Team Providers Care Senior Bi Developer Name Role Phone Adarsh Manrique MD Primary Care Provider [phone] Adarsh Manrique MD Unavailable [phone] Kelly Nice LICENSED CHEMICAL SPRAY TECHNICIAN Unavailable [phone] Encounter Details Date Type Department Care Team (Late st Contact Info) Description 07/27/2024 Abstract [facility] [place] [facility] [address] [facility] 110 [place] [phone] Adarsh Manrique MD 112 [facility] 110 [place], [place] [address] Social History Tobacco Use Types Packs/Day Years [...] on file documented as of this encounter Functional Status * Over the past 2 weeks, how often have you been bothered by any of the following problems? Question Answer Date of Assessment Author Little interest or pleasure in doing things Not at all 07/27/2024 9:00 AM EST Ava, Nancy, JUSTIN N Feeling down, depressed, or hopeless Not at all 07/27/2024 9:00 AM Nancy Sims LP N Patient Health Questionnaire -2 Score 0 07/27/2024 9:00 AM Nancy Sims LP N * Question Answer Date of Assessment Author Trouble falling or staying asleep, or sleeping too much Not at all 07/27/2024 9:00 AM Paris Sims LPN Feeling tired or having dante le energy Not at all 07/27/2024 9:00 AM Nancy Sims LP N Poor appetite or overeating Not at all 07/27/2024 9: 00 AM Nancy Sims LPN Feeling bad about yourself - or that you are a failure or have let yourself or your family down Not at all 07/27/2024 9:00 AM Nancy Sims LPN Trouble concentrating on thi ngs, such as reading the newspaper or watching television Not at all 07/27/2024 9:00 AM Nancy Sims LP N Moving or speaking so slowly that other people could have noticed? Or the opposite - being so fidgety or restless that you have been moving around a lot more than usual. Not at all 07/27/2024 9:00 AM Nancy Sims LP N Thoughts that you would be better off or hurting yourself in some way Not at all 07/27/2024 9:00 AM Nancy Sims L PN Patient Health Questionnaire -9 Score 0 07/27/2024 9:00 AM Nancy Sims LP N documented as of this encounter Plan of Treatment Upcoming Encounters Date Type Department Care Team (Late st Contact Info) Description 01/31/2025 10:00 AM EDT Office Visit [facility] [place] [facility] 112 [facility] 110 [place] [address] Adarsh Manrique MD 112 [facility] 110 [place] [address] 02/05/2025 2:15 PM EDT Office Visit [facility] [place] [address] [place] [address] Raffaele Castillo, DO [address] [place] [address] documented as of this encounter Visit Diagnoses Not on filedocumented in this encounter Additional Health Concerns Assessment Noted Time PHQ-9 Depression Total Score: 0 07/27/19 25 9:00 AM EST documented as of this encounter Care Teams Senior Bi Developer Relationship Specialty Start Date End Date Adarsh Manrique MD [address] [facility] 110 [place] [address] PCP - General Internal Medicine 10/23/22 dAarsh Manrique MD [address] [facility] 110 [place] [address] PCP - ACO Reach 10/22/22 Kelly Nice, JOSE MANUEL [address] [place] [address] Iuss Master Analyst Family Medicine 10/25/24 11/14/24 documented as of this encounter
--- OUTSIDE RECORDS SUMMARY | 2025-01-23 09:42 | XMS_ITS | Encounter Summary ---
Author Organization [facility] Address [address] [facility] [place] [address] Care Team Providers Care Inspector Packer Glass Container Name Role Phone Adarsh Manrique MD Primary Care Provider [phone] Adarsh Manrique MD Unavailable [phone] Kelly Niec ASSISTANT SALES DIRECTOR Unavailable [phone] Encounter Details Date Type Department Care Team (Late Contact Info) Description 08/16/2024 Abstract [facility] [place] [facility] [address] [facility] 110 [place] [address] Adarsh Manrique MD [address] [facility] 110 [place], [place] [phone] Social History Tobacco Use Types Packs/Day Years [...] 10:00 AM EDT Office [facility] [address] [facility] 110 [place] [address] Adarsh Manrique MD [address] [facility] 110 [place] [address] 02/05/2025 2:15 PM EDT Office Visit [facility] [address] [place] [address] Raffaele Castillo, [address] [place] [address] documented as of this encounter Visit Diagnoses Not on filedocumented in this encounter Additional Health Concerns Assessment Noted Time PHQ-9 Depression Total Score: 0 07/27/19 25 9:00 AM EST documented as of this encounter Care Teams Inspector Packer Glass Container Relationship Specialty Start Date End Date Adarsh Manrique MD [address] [facility] 110 [place] [address] PCP - General Internal Medicine 10/23/22 Adarsh Manrique MD 112 [facility] 110 [place] [address] PCP - ACO Reach 10/22/22 Kelly Nice, JOSE MANUEL [address] [place] [address] Care Coordinator Family Medicine 10/25/24 11/14/24 documented as of this encounter
--- OUTSIDE RECORDS SUMMARY | 2025-01-23 09:42 | XMS_ITS | Encounter Summary ---
Author Organization [facility] Address [address] [place] [address] Care Team Providers Care Electric Locomotive Crane Operator Name Role Phone Adarsh Manrique MD Primary Care Provider [phone] Adarsh Manrique MD Unavailable [phone] Kelly Nice CATCHER FILTER TIP Unavailable [phone] Encounter Details Date Type Department Care Team (Late st Contact Info) Description 03/22/2023 Abstract [facility] [place] [address] [facility] 110 [place] [address] Adarsh Manrique MD [address] [facility] 110 [place] [address] Social History Tobacco Use Types Packs/Day Years [...] 10:00 AM EDT Office Visit [facility] [place] [address] [place] [address] Adarsh Manrique MD [address] [facility] 110 [place], [place] [address] 02/05/2025 2:15 PM EDT Office Visit [facility] Eye [address] [place] [address] Raffaele Castillo DO [address] [place] [address] documented as of this encounter Visit Diagnoses Not on filedocumented in this encounter Care Teams Electric Locomotive Crane Operator Relationship Specialty Start Date End Date Adarsh Manrique MD [address] [facility] 110 [place] [address] PCP - General Internal Medicine 10/23/22 Adarsh Manrique MD [address] [facility] 110 [place] [address] PCP - ACO Reach 10/22/22 Kelly Nice, CATCHER FILTER TIP [address] [place] [address] Customer Experience Intern Family Medicine 10/25/24 11/14/24 documented as of this encounter
--- OUTSIDE RECORDS SUMMARY | 2025-01-23 09:42 | XMS_ITS | Encounter Summary ---
Author Organization [facility] Address [address] [place] [address] Care Team Providers Care Film Editor Supervisor Name Role Phone Adarsh Manrique MD Primary Care Provider [phone] Adarsh Manrique MD Unavailable [phone] Kelly Nice NURSING HOME SOCIAL WORKER Unavailable [phone] Encounter Details Date Type Department Care Team (Late st Contact Info) Description 07/19/2023 Orders Only [facility] [place] [facility] [address] [facility] 110 [place] [address] A, Unknown Practice [address] [place], [place] [address] Social History Tobacco Use Types Packs/Day Years [...] [place] [address] [place] [address] Adarsh Manrique MD [address] [facility] 110 [place] [id number] 02/05/2025 2:15 PM EDT Office Visit [facility] [address] [place] [address] Raffaele Castillo DO [address] [place] [address] documented as of this encounter Procedures Procedure Name Priority Date/Time Associated Diagnosis Comments SCANNED LABS Routine 07/15/2023 3:31 PM EST documented in this encounter Results * SCANNED LABS (07/15/2023 3:31 PM EST) us Unknown Practice A LAB CHG PERFORMABLES Final Re sult documented in this encounter Visit Diagnoses Not on filedocumented in this encounter Care Teams Film Editor Supervisor Relationship Specialty Start Date End Date Adarsh Manrique MD [address] [facility] 110 [place] [address] PCP - General Internal Medicine 10/23/22 Adarsh Manrique MD [address] [facility] 110 [place] [address] PCP - ACO Reach 10/22/22 Kelly Nice, NURSING HOME SOCIAL WORKER [address] [place] [address] Co Founder And Ceo Family Medicine 10/25/24 11/14/24 documented as of this encounter
--- OUTSIDE RECORDS SUMMARY | 2025-01-23 09:42 | XMS_ITS | Encounter Summary ---
Author Organization [facility] Address [address] [facility] [place] [address] Care Team Providers Care Malt Roaster Name Role Phone Adarsh Manrique MD Primary Care Provider [phone] Adarsh Manrique MD Unavailable [phone] Kelly Nice HEALTH INFORMATION MANAGEMENT DIRECTOR Unavailable [phone] Encounter Details Date Type Department Care Team (Late Contact Info) Description 08/30/2024 Abstract [facility] [place] [facility] [address] [facility] 110 [place] [address] Adarsh Manrique MD [address] [facility] 110 [place], [place] [phone] Social History Tobacco Use Types Packs/Day Years [...] 10:00 AM EDT Office [facility] [address] [facility] 110 [place] [address] Adarsh Manrique MD [address] [facility] 110 [place] [address] 02/05/2025 2:15 PM EDT Office Visit [facility] [address] [place] [address] Raffaele Castillo, [address] [place] [address] documented as of this encounter Visit Diagnoses Not on filedocumented in this encounter Additional Health Concerns Assessment Noted Time PHQ-9 Depression Total Score: 0 07/27/19 25 9:00 AM EST documented as of this encounter Care Teams Malt Roaster Relationship Specialty Start Date End Date Adarsh Manrique MD [address] [facility] 110 [place] [address] PCP - General Internal Medicine 10/23/22 Adarsh Manrique MD 112 [facility] 110 [place] [address] PCP - ACO Reach 10/22/22 Kelly Nice, JOSE MANUEL [address] [place] [address] Railroad Switchman Family Medicine 10/25/24 11/14/24 documented as of this encounter
--- OUTSIDE RECORDS SUMMARY | 2025-01-23 09:42 | XMS_ITS | Encounter Summary ---
Author Organization [facility] Address [address] [place] [address] Care Team Providers Care Mechanical Engineering Director Name Role Phone Adarsh Manrique MD Primary Care Provider [phone] Adarsh Manrique MD Unavailable [phone] Encounter Details Date Type Department Care Team (Late Contact Info) Description 11/30/2024 Abstract [facility] [facility] 112 [facility] 110 [place] [address] Adarsh Manrique MD 112 [facility] 110 [place], [place] [phone] Social History Tobacco Use Types Packs/Day Years [...] 10:00 AM EDT Office Visit [facility] [place] [facility] [address] [facility] 110 [place] [address] Adarsh Manrique MD 112 [facility] 110 [place], [place] [address] 02/05/2025 2:15 PM EDT Office Visit [facility] [address] [place] [address] Raffaele Castillo DO [address] [place] [address] documented as of this encounter Visit Diagnoses Not on filedocumented in this encounter Additional Health Concerns Assessment Noted Time PHQ-9 Depression Total Score: 0 07/27/19 25 9:00 AM EST documented as of this encounter Care Teams Mechanical Engineering Director Relationship Specialty Start Date End Date Adarsh Manrique MD [address] [facility] 110 [place] [address] PCP - General Internal Medicine 10/23/22 Adarsh Manrique MD [address] [facility] 110 [place] [address] PCP - ACO Reach 10/22/22 documented as of this encounter
--- OUTSIDE RECORDS SUMMARY | 2025-01-23 09:42 | XMS_ITS | Encounter Summary ---
Author Organization [facility] Address [address] [place] [address] Care Team Providers Care Key Maker Name Role Phone Adarsh Manrique MD Primary Care Provider [phone] Adarsh Manrique MD Unavailable [phone] Kelly Nice PRESSURIZATION MECHANIC Unavailable [phone] Encounter Details Date Type Department Care Team (Late st Contact Info) Description 07/04/2024 Abstract [facility] 112 [facility] 110 [place] [address] Adarsh Manrique MD 112 [facility] 110 [place], [place] [id number] Social History Tobacco Use Types Packs/Day Years [...] Visit [facility] 112 [facility] 110 [place] [address] Adarsh Manrique MD 112 [facility] 110 [place], [place] [address] 02/05/2025 2:15 PM EDT Office Visit [facility] [address] [place] [phone] Raffaele Castillo DO [address] [place] [address] documented as of this encounter Visit Diagnoses Not on filedocumented in this encounter Care Teams Key Maker Relationship Specialty Start Date End Date Adarsh Manrique MD [address] [facility] 110 [place], [place] [id number] PCP - General Internal Medicine 10/23/22 Adarsh Manrique MD [address] [facility] 110 [place] [address] PCP - ACO Reach 10/22/22 Kelly Nice, JOSE MANUEL [address] [place] [address] Manager [place] [facility] 10/25/24 11/14/24 documented as of this encounter
--- OUTSIDE RECORDS SUMMARY | 2025-01-23 09:42 | XMS_ITS | Encounter Summary ---
Author Organization [facility] Address [address] [place] [address], [address] [place] [address] Care Team Providers Care Optical Effects Camera Operator Name Role Phone Adarsh Manrique MD Primary Care Provider [phone] Encounter Details Date Type Department Care Team (Late st Contact Info) Description 12/15/2015 FollowUp Telephone Encounter [facility] [address] [address] [address] Hayley Holcomb, RN Social History Tobacco Use [...] on filedocumented in this encounter Care Teams Optical Effects Camera Operator Relationship Specialty Start Date End Date Adarsh Manrique MD PCP - General Internal Medicine 11/29/15 documented as of this encounter
--- NOTE | 2025-01-23 09:43 | US_ITS ---
The [address] [address] Patient Name: MAVIS PORTER MRN: [id number] date: 1945 Sex: F Assigned Patient Location: US Current Patient Location: US Accession/Order Number: [id number] Exam Date: 01/23/2025 09:45 Report Date: 01/23/2025 10:31 At the request of: RHINA BAPTISTE MD Procedure: US renal BI BILATERAL RENAL AND BLADDER ULTRASOUND CLINICAL HISTORY: Personal History Kidney Stones COMPARISON: 12/21/[address] 06/15/2023 Estimation of renal size is approximately 11.0 cm on the right and 9.5 cm on the left. There are multiple echogenic foci throughout both kidneys suggesting stones. The largest on the right is toward the lower pole measuring 6 mm and on the left at the midpole measuring 9 mm. There is a cortical cyst at the upper pole on the right measuring 11 mm. There are bilateral parapelvic renal cysts which were also seen previously. No hydronephrosis is noted. There is no perinephric fluid. The urinary bladder is partially distended with a volume of 150 mL. No contour or intraluminal abnormalities are seen. US/US renal BI IMPRESSION: BILATERAL NEPHROLITHIASIS AND CYSTS. NO OBSTRUCTIVE UROPATHY. Impression dictated by: Nolvia Fink M.D. 01/23/2025 10:31 AM Dictation Location: [place] [address] Electronically authenticated by: [id number] Y Date: 01/23/2025 10:31
--- OUTSIDE RECORDS SUMMARY | 2025-01-23 09:43 | XMS_ITS | Encounter Summary ---
Author Organization [facility] Address [address] [place] [address] Care Team Providers Care History Department Chair Name Role Phone Adarsh Manrique MD Primary Care Provider Adarsh Manrique MD Unavailable [phone] Kelly Nice STRAP MAKING MACHINE OPERATOR Unavailable [phone] Encounter Details Date Type Department Care Team (Late st Contact Info) Description 12/22/2023 Clinisync Result Encounter [facility] External Department Unsolicited [...] Office Visit [facility] 112 [facility] 110 [place] [address] Adarsh Manrique MD 112 [facility] 110 [place], [place] [address] 02/05/2025 2:15 PM EDT [facility] [address] [place] [address] Raffaele Castillo, DO [address] [place] [address] documented as of this encounter Procedures Procedure Name Priority Date/Time Associated Diagnosis Comments XR ABDOMEN 1V 12/22/2023 6:11 AM EDT documented in this encounter Results * XR ABDOMEN 1V (12/22/2023 6:11 AM EDT) Anatomical Region Laterality Modality Other 12/22/2023 6:11 AM EDT Narrative 12/22/2023 6:13 AM EDT [address] [address] XRay Report Signed Patient: JEANNETTE BRIGHT MR#: [id number] : 1945 Acct:[id number] Age/Sex: 78 / F ADM Date: 12/21/23 Loc: US Attending Dr: Keerthi Baptiste M.D. Ordering Physician: Keerthi Baptiste M.D. Date of Service: 12/21/23 Procedure(s): XR abdomen 1V Accession Number(s): [id number] cc: ADARSH MANRIQUE ; Keerthi Baptiste M.D. [address] [address] Patient Name: JEANNETTE BRIGHT MRN: [id number] date: 1945 Sex: F Assigned Patient Location: Current Patient Location: Accession/Order Number: [id number] Exam Date: 12/21/2023 09:20 Report Date: 12/22/2023 06:11 At the request of: KEERTHI BAPTISTE Procedure: XR abdomen 1V EXAMINATION: XR abdomen 1V HISTORY: Kidney Stone COMPARISON: XR abdomen 04/06/2021 FINDINGS: KIDNEY/URETER - RIGHT: No visible renal or ureteral calcifications. KIDNEY/URETER - LEFT: No visible renal or ureteral calcifications. PELVIS: No visible ureteral stones. Stable pelvic calcifications favoring phleboliths and possible granuloma. BOWEL: No abnormal dilation or deviation. 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 OTHER: Negative. No abnormal gaseous collections. XR/XR abdomen 1V IMPRESSION: 1. No appreciable urinary tract calculi. Electronically authenticated by: ASHWIN DUMONT Date: 12/22/2023 06:11 Dictated By: Ashwin Dumont M.D. Signed By: 12/22/23612 DD/ 0 TD/TT: Embedded Software Test Engineer: Procedure Note Radiology, Radiologist, MD - 12/22/2023 [place] [address] XRay Report Signed Patient: JEANNETTE BRIGHT GMR#: [id number] : 1945cct:[id number] Age/Sex: 78 / FADM Date: 12/21/23 Loc: US Attending Dr: Keerthi Baptiste M.D. Ordering Physician: Keerthi Baptiste M.D. Date of Service: 12/21/23 Procedure(s): XR abdomen 1V Accession Number(s): [id number] cc: ADARSH MANRIQUE ; Keerthi Baptiste M.D. The [place] [address] Patient Name: JEANNETTE BRIGHT MRN: [id number] date: 1945 Sex: F Assigned Patient Location: Current Patient Location: Accession/Order Number: [id number] Exam Date: 12/21/2023 09:20 Report Date: 12/22/2023 06:11 At the request of: KEERTHI BAPTISTE Procedure: XR abdomen 1V EXAMINATION: XR abdomen 1V HISTORY: Kidney Stone COMPARISON: XR abdomen 04/06/2021 FINDINGS: KIDNEY/URETER - RIGHT: No visible renal or ureteral calcifications. KIDNEY/URETER - LEFT: No visible renal or ureteral calcifications. PELVIS: No visible ureteral stones. Stable pelvic calcifications favoring phleboliths and possible granuloma. BOWEL: No abnormal dilation or deviation. 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 OTHER: Negative. No abnormal gaseous collections. XR/XR abdomen 1V IMPRESSION: 1. No appreciable urinary tract calculi. Electronically authenticated by: ASHWIN DUMONT Date: 12/22/2023 06:11 Dictated By: Ashwin Dumont M.D. Signed By:12/22/23612 DD/ 0 TD/TT: Embedded Software Test Engineer: us Generic External Data Provider [facility] Final Result documented in this encounter Visit Diagnoses Not on filedocumented in this encounter Care Teams History Department Chair Relationship Specialty Start Date End Date Adarsh Manrique MD [address] [facility] 110 [place] [address] PCP - General Internal Medicine 10/23/22 Adarsh Manrique MD [address] [facility] 110 [place] [address] PCP - ACO Reach 10/22/22 Kelly Nice, STRAP MAKING MACHINE OPERATOR [address] [place] [address] Reamer Hand Family Medicine 10/25/24 11/14/24 documented as of this encounter
--- OUTSIDE RECORDS SUMMARY | 2025-01-23 09:43 | XMS_ITS | Encounter Summary ---
Author Organization [facility] Address [address] [place] [address] Care Team Providers Care Assistant Professor Of Mathematics Name Role Phone Adarsh Manrique MD Primary Care Provider [phone] Adarsh Manrique MD Unavailable [phone] Kelly Nice TACTICAL INTELLIGENCE OFFICER Unavailable [phone] Encounter Details Date Type Department Care [...] Visit [facility] 112 [facility] 110 [place] [address] Adarsh Manrique MD 112 [facility] 110 [place], [place] [address] 02/05/2025 2:15 PM EDT Office Visit [facility] [address] [place] [address] Raffaele Castillo, DO [address] [place] [address] documented as of this encounter Procedures Procedure Name Priority Date/Time Associated Diagnosis Comments US RENAL BI 12/22/2023 6:43 AM EDT documented in this encounter Results * US RENAL BI (12/22/2023 6:43 AM EDT) Anatomical Region Laterality Modality Other 12/22/2023 6:43 AM EDT Narrative 12/22/2023 6:45 AM EDT [address] [address] Ultrasound Report Signed Patient: MAVIS BRIGHT MR#: [id number] : 1945 Acct:[id number] Age/Sex: 78 / F ADM Date: 12/21/23 Loc: US Attending Dr: Rhina Baptiste M.D. Ordering Physician: Rhina Baptiste M.D. Date of Service: 12/21/23 Procedure(s): US renal BI Accession Number(s): [id number] cc: ADARSH MANRIQUE ; Rhina Baptiste M.D. [address] [address] Patient Name: MAVIS BRIGHT MRN: [id number] date: 1945 Sex: F Assigned Patient Location: US Current Patient Location: US Accession/Order Number: [id number] Exam Date: 12/21/2023 09:45 Report Date: 12/22/2023 06:43 At the request of: RHINA BAPTISTE Procedure: US renal BI EXAMINATION: US renal BI HISTORY: Kidney Stone COMPARISON: Ultrasound renal bilateral 09/15/2023 TECHNIQUE: Ultrasound examination was performed of the kidneys and urinary bladder. FINDINGS: RIGHT KIDNEY: Contain several nonobstructing stones, largest is 6 mm. Slight dilation of several calyces; no abnormal dilation of renal pelvis. Mild cortical thinning. Color Doppler demonstrates blood flow within the kidney. Kidney: 11.2 x 5.0 x 4.7 cm. LEFT KIDNEY: Contain several nonobstructing stones, largest is 7 mm. Slightly dilated appearance of several calyces; similar to right. No abnormal dilation of renal pelvis. Mild cortical thinning. Color Doppler demonstrates blood flow. Kidney: 9.9 x 5.2 x 4.6 cm BLADDER: No visible wall thickening, mass, or calculi. US/US renal BI IMPRESSION: 1. Bilateral nonobstructing nephrolithiasis. 2. Mild cortical atrophy bilaterally; likely age related. Electronically authenticated by: ASHWIN DUMONT Date: 12/22/2023 06:43 Dictated By: Ashwin Dumont M.D. Signed By: 12/22/2345 DD/ 2 TD/TT: Calf Skinner: Procedure Note Radiology, Radiologist, MD - 12/22/2023 [place] [address] Ultrasound Report Signed Patient: MAVIS BRIGHT GMR#: [id number] : 1945cct:[id number] Age/Sex: 78 / FADM Date: 12/21/23 Loc: US Attending Dr: Rhina Baptiste M.D. Ordering Physician: Rhina Baptiste M.D. Date of Service: 12/21/23 Procedure(s): US renal BI Accession Number(s): [id number] cc: ADARSH MANRIQUE ; Rhina Baptiste M.D. The [place] [address] Patient Name: MAVIS BRIGHT MRN: [id number] date: 1945 Sex: F Assigned Patient Location: US Current Patient Location: US Accession/Order Number: [id number] Exam Date: 12/21/2023 09:45 Report Date: 12/22/2023 06:43 At the request of: RHINA BAPTISTE Procedure: US renal BI EXAMINATION: US renal BI HISTORY: Kidney Stone COMPARISON: Ultrasound renal bilateral 09/15/2023 TECHNIQUE: Ultrasound examination was performed of the kidneys and urinary bladder. FINDINGS: RIGHT KIDNEY: Contain several nonobstructing stones, largest is 6 mm.Slight dilation of several calyces; no abnormal dilation of renal pelvis. Mild cortical thinning. Color Doppler demonstrates blood flow within thekidney. Kidney: 11.2 x 5.0 x 4.7 cm. LEFT KIDNEY: Contain several nonobstructing stones, largest is 7 mm.Slightly dilated appearance of several calyces; similar to right. No abnormaldilation of renal pelvis. Mild cortical thinning. Color Doppler demonstrates blood flow. Kidney: 9.9 x 5.2 x 4.6 cm BLADDER: No visible wall thickening, mass, or calculi. US/US renal BI IMPRESSION: 1. Bilateral nonobstructing nephrolithiasis. 2. Mild cortical atrophy bilaterally; likely age related. Electronically authenticated by: ASHWIN DUMONT Date: 12/22/2023 06:43 Dictated By: Ashwin Dumont M.D. Signed By:12/22/2345 DD/ TD/TT: Calf Skinner: us Generic External Data Provider [facility] Final Result documented in this encounter Visit Diagnoses Not on filedocumented in this encounter Care Teams Assistant Professor Of Mathematics Relationship Specialty Start Date End Date Adarsh Manrique MD [address] [facility] 110 [place] [address] PCP - General Internal Medicine 10/23/22 Adarsh Manrique MD [address] [facility] 110 [place] [address] PCP - ACO Reach 10/22/22 Kelly Nice, JOSE MANUEL [address] [facility] [place] [address] Data Analytics Analyst Family Medicine 10/25/24 11/14/24 documented as of this encounter
--- OUTSIDE RECORDS SUMMARY | 2025-01-23 09:43 | XMS_ITS | Encounter Summary ---
Author Organization [facility] Address [address] [place] [address] Care Team Providers Care Arc Trimmer Name Role Phone Adarsh Manrique MD Primary Care Provider Adarsh Manrique MD Unavailable [phone] Kelly Ncie DIRECTOR OF PURCHASING Unavailable [phone] Encounter Details Date Type Department Care Team (Late st Contact Info) Description 12/14/2023 Abstract [facility] 112 [facility] 110 [place] [address] Adarsh Manrique MD 112 [facility] 110 [place], [place] [address] Social History Tobacco Use Types Packs/Day Years [...] Visit [facility] 112 [facility] 110 [place] [address] Adarsh Manrique MD 112 [facility] 110 [place], [place] [address] 02/05/2025 2:15 PM EDT Office Visit [facility] [address] [place] [address] Raffaele Castillo DO [address] [place] [address] documented as of this encounter Visit Diagnoses Not on filedocumented in this encounter Care Teams Arc Trimmer Relationship Specialty Start Date End Date Adarsh Manrique MD [address] [facility] [place], [place] [address] PCP - General Internal Medicine 10/23/22 Adarsh Manrique MD [address] [facility] 110 [place] [address] PCP - ACO Reach 10/22/22 Kelly Nice, JOSE MANUEL [address] [place] [address] Manager Operational Family Medicine 10/25/24 11/14/24 documented as of this encounter
--- OUTSIDE RECORDS SUMMARY | 2025-01-23 09:43 | XMS_ITS | Encounter Summary ---
Author Organization [facility] Address [address] [place] [address] Care Team Providers Care Composite Layup Worker Name Role Phone Adarsh Manrique MD Primary Care Provider [phone] Adarsh Manrique MD Unavailable [phone] Kelly Nice COPYRIGHT CLERK Unavailable [phone] Encounter Details Date Type Department Care Team (Late st Contact Info) Description 12/08/2023 Clinisync Result Encounter NOMS External Department Unsolicited Adarsh Manrique MD 112 [facility] 110 [place], [place] [phone] Social History Tobacco Use Types Packs/Day Years [...] Office Visit [facility] 112 [facility] 110 [place] [address] Adarsh Manrique MD 112 [facility] 110 [place], [place] [address] 02/05/2025 2:15 PM EDT Office Visit [facility] [address] [place] [address] Raffaele Castillo, DO [address] [place] [address] documented as of this encounter Procedures Procedure Name Priority Date/Time Associated Diagnosis Comments MM TOMOSYNTHESIS SCREENING BI 12/08/2023 9:50 AM EDT documented in this encounter Results * MM TOMOSYNTHESIS SCREENING BI (12/08/2023 9:50 AM EDT) Anatomical Region Laterality Modality Other 12/08/2023 9:50 AM EDT Narrative 12/08/2023 9:51 AM EDT The [address] [address] Mammography Report Signed Patient: JEANNETTE BRIGHT MR#: [id number] : 1945 Acct:[id number] Age/Sex: 78 / F ADM Date: 12/08/23 Loc: MAMMO Attending Dr: ADARSH MANRIQUE Ordering Physician: ADARSH MANRIQUE Results: Date of Service: 12/08/23 Follow Up: Procedure(s): MM tomosynthesis screening BI Accession Number(s): [id number] cc: ADARSH MANRIQUE Patient Name: JEANNTETE BRIGHT MR#: [id number] : 1945 Exam Date: 12/08/2023 Ordering Doctor: DR ADARSH MANRIQUE M.D. RADIOLOGY REPORT PROCEDURE: MM TOMOSYNTHESIS SCREENING BI COMPARISON: MG MAMM SCREEN 3D MARCOS CAD, 08/24/2022. MG MAMM MARCOS DIAG W CAD, 06/24/2020. INDICATIONS: Screening Calculator Name NCI Breast Cancer Risk Assessment Tool 5 Year Breast Cancer Risk 3.30% Lifetime Breast Cancer Risk 6.20% Personal Breast Cancer No Personal Ovarian Cancer No Treatments None Family Cancers Brother with mouth cancer at age 70. LOCATION: The [facility] BREAST COMPOSITION: The breasts are heterogeneously dense,which may obscure small masses. FINDINGS: DIAGNOSTIC CATEGORY 2--BENIGN FINDING. NO CHANGE FROM COMPARISON. Scattered benign-appearing nodules are present. Scattered benign-appearing calcifications are present. Scattered benign-appearing lymph nodes are present. RIGHT BREAST: No significant suspicious finding. LEFT BREAST: No significant suspicious finding. RECOMMENDATIONS: ROUTINE MAMMOGRAM AND CLINICAL EVALUATION IN 12 MONTHS. PLEASE NOTE: A NORMAL MAMMOGRAM DOES NOT EXCLUDE THE POSSIBILITY OF BREAST CANCER. A CLINICALLY SUSPICIOUS PALPABLE LUMP SHOULD BE BIOPSIED. Dictated by: Federico Tate MD on 12/08/2023 at 09:49 Approved by: Federico Tate MD on 12/08/2023 at 09:50 Dictated By: Federico Tate M.D. Signed By: 12/08/2351 DD/ TD/TT: Director Private Music Therapy Agency: Procedure Note Radiology, Radiologist, - 12/08/2023 [place] [address] Mammography Report Signed Patient: JEANNETTE BRIGHT GMR#: [id number] : 1945cct:[id number] Age/Sex: 78 / FADM Date: 12/08/23 Loc: MAMMO Attending Dr: ADARSH MANRIQUE Ordering Physician: ADARSH MANRIQUEResults: Date of Service: 12/08/23Follow Up: Procedure(s): MM tomosynthesis screening BI Accession Number(s): [id number] cc: ADARSH MANRIQUE Patient Name: JEANNETTE BRIGHT MR#: [id number] : 1945 Exam Date: 12/08/2023 Ordering Doctor: DR ADARSH MANRIQUE M.D. RADIOLOGY REPORT PROCEDURE: MM TOMOSYNTHESIS SCREENING BI COMPARISON: MG MAMM SCREEN 3D MARCOS CAD, 08/24/2022. MG MAMM MARCOS DIAG WCAD, 06/24/2020. INDICATIONS: Screening Calculator Name NCI Breast Cancer Risk Assessment Tool 5 Year Breast Cancer Risk 3.30% Lifetime Breast Cancer Risk 6.20% Personal Breast Cancer No Personal Ovarian Cancer No Treatments None Family Cancers Brother with mouth cancer at age 70. LOCATION: The [facility] BREAST COMPOSITION: The breasts are heterogeneously dense,which may obscure small masses. FINDINGS: DIAGNOSTIC CATEGORY 2--BENIGN FINDING. NO CHANGE FROM COMPARISON.Scattered benign-appearing nodules are present. Scattered benign-appearing calcifications are present. Scattered benign-appearing lymph nodes are present. RIGHT BREAST: No significant suspicious finding. LEFT BREAST: No significant suspicious finding. RECOMMENDATIONS: ROUTINE MAMMOGRAM AND CLINICAL EVALUATION IN 12 MONTHS. PLEASE NOTE: A NORMAL MAMMOGRAM DOES NOT EXCLUDE THE POSSIBILITY OFBREAST CANCER. A CLINICALLY SUSPICIOUS PALPABLE LUMP SHOULD BE BIOPSIED. Dictated by: Federico Tate MD on 12/08/2023 at 09:49 Approved by: Federico Tate MD on 12/08/2023 at 09:50 Dictated By: Federico Tate M.D. Signed By:12/08/2351 DD/ TD/TT: Director Private Music Therapy Agency: Adarsh Manrique MD [facility] Final Result documented in this encounter Visit Diagnoses Not on filedocumented in this encounter Care Teams Composite Layup Worker Relationship Specialty Start Date End Date Adarsh Manrique MD 112 [place] 110 [place] [address] PCP - General Internal Medicine 10/23/22 Adarsh Manrique MD 112 [facility] 110 [place] [address] PCP - ACO Reach 10/22/22 Kelly Nice, COPYRIGHT CLERK [address] [place] [address] Director Of Music Family Medicine 10/25/24 11/14/24 documented as of this encounter
--- OUTSIDE RECORDS SUMMARY | 2025-01-23 09:48 | XMS_ITS | CCD ---
Author Organization [facility] Inform ion Partnership [facility] Care Team Providers Care Manager Lighting Name Role Phone DR ADARSH MANRIQUE Admitting Unavailable DR ADARSH MANRIQUE Attending Unavailable DR ADARSH MANRIQUE Primary Care Unavailable DR ADARSH MANRIQUE Consulting Unavailable DAHIANA, DR KYARA Hightower Consulting Unavailable ADARSH MANRIQUE Primary Care Physician [phone] Adarsh Manrique MD Primary Care Provider Adarsh Manrique MD Unavailable Adarsh Manrique II Primary Care Provider [phone] Demarcus Barahona MD Attending Provider [phone] CONNER VALERIO Attending Unavailable CONNER VALERIO Attending Unavailable CONNER VALERIO Attending Unavailable CONNER VALERIO Attending Unavailable CONNER VALERIO Attending Unavailable Adarsh Manrique II Primary Care Provider Demarcus Barahona MD Attending Provider Ariadna Spear RN Other Provider Unavailable Cristal Malloy RN Other Provider Unavailable Mady RNNorma Other Provider Unavailable Janis Rondon RN Other Provider Unavailable Selina Gallego RN Other Provider Unavailable Suzette Carey RN Other Provider Unavailable Fidelia Kruse MD Other Provider Yani De Leon DO Other Provider [phone] Adeel Singletary MD Other Provider [phone] Jovani Callahan DO Other Provider Vazquez Marvin MD Other Provider [phone] Ivana Kelly MD Other Provider Jose Antony DO Other Provider John Dorado MD Other Provider Unavailable Nhi Graham APRN Other Provider Vanesa JOHNS, Rena Other Provider José Luis Griffith MD Other Provider Estefani De La Cruz MD Other Provider Unavailable Dennys Montesinos MD Other Provider Jose Mcclain DO Other Provider Ted Ontiveros MD Other Provider Mere JOHNS, Bora Other Provider Brittany FINANCIAL DATA ANALYST-C, Lauren Ortiz Other Provider Wade Rose APRN Other Provider Unavailable Serjio Garsia MD Other Provider Haider JOHNS, Alex Other Provider James JOHNS, Abraham Other Provider Jules JOHNS, Terrie Other Provider Unavailable Robinson Hall MD Other Provider Tomeka Vuong DO Other Provider Chivo Ordaz DO Other Provider Jazmin Ulrich APRN Other Provider Otilio Umanzor DO Other Provider [phone] Chaz JOHNS, Roberto Rojas Other Provider Dariela Hernández APRN Other Provider Sangita Zamora APRN Other Provider Naga JOHNS, Dahiana Other Provider Unavailable Adarsh New MD Other Provider Bro Banerjee DO Other Provider Felix Smith DO Other Provider James JOHNS, Flavio Roberto Other Provider Susana Montgomery MD Other Provider Liliane HILARION, Selma Other Provider Unavailable Jovan JOHNS, Conner Other Provider Jorge JOHNS, Brian Other Provider Devon Johnson MD Other Provider John Mckeon MD Other Provider Scotty Dill MD Other Provider Odessa MACHINE ADJUSTER LEADER CASE TRIM, Felisa Novak Other Provider Cecilio MACHINE ADJUSTER LEADER CASE TRIM, Sami Other Provider Brittany MANCINI, Shelby Other Provider Unavailable Burton GAGNON, Adarsh Primary Care Provider Demarcus Barahona MD Attending Provider Burton GAGNON, Adarsh Primary Care Provider [phone] Demarcus Barahona MD Attending Provider NOLVIA GOMEZ Attending Unavailable NOLVIA GOMEZ Attending Unavailable ELHAM MORFIN Attending Unavailable ADARSH MANRIQUE Attending Unavailable ADELINE NOGUERA Attending Unavailable ADARSH MANRIQUE Referring Unavailable ADELINE NOGUERA Attending Unavailable ADARSH MANRIQUE Referring Unavailable ADARSH MANRIQUE Attending Unavailable ADARSH MANRIQUE Attending Unavailable ADARSH MANRIQUE Attending Unavailable ADARSH MANRIQUE Attending Unavailable ELHAM MORFIN Attending Unavailable Demarcus Barahona II Attending UnavailAdarsh Garsia Primary Care Unavailable Demarcus Barahona II Admitting UnavailDemarcus Muller II Admitting UnavailDemarcus Muller II Attending UnavailAdarsh Garsia Primary Care Unavailable Ariadna Spear Consulting Unavailable Cristal Malloy Consulting Unavailable Norma Earl Consulting Unavailable Janis Rondon Consulting Unavailable Selina Gallego Consulting Unavailable Suzette Carey Consulting Unavailable Fidelia Kruse Consulting Unavailable Yani De Leon Consulting Unavailable Adeel Singletary Consulting Unavailable Jovani Callahan Consulting UnavailVazquez Peng Consulting Unavailable Ivana Kelly Consulting Unavailable Jose Antony Consulting Unavailable John Dorado Consulting Unavailable Nhi Graham Consulting Unavailabl Rena Kaufman Consulting Unavailable José Luis Griffith Consulting Unavailable Estefani De La Cruz Consulting Unavailable Dennys Montesinos Consulting Unavailable Jose Mcclain Consulting Unavailable Ted Ontiveros Consulting Unavailable Bora Severino Consulting Unavailable Lauren Soto Consulting Unavailable Wade Rose Consulting Unavailable Serjio Garsia Consulting UnavailAlex Bullock Consulting Unavailable Abraham Ramirez Consulting Unavailable Terrie Vicente Consulting Unavailable Robinson Hall Consulting Unavailable Tomeka Vuong Consulting Unavailable Chivo Ordaz Consulting Unavailable Jazmin Ulrich Consulting Unavailable Otilio Umanzor Consulting Unavailable Roberto Ware Consulting Unavailable Dariela Hernández Consulting Unavailable Sangita Zamora Consulting Unavailable Dahiana Nielson Consulting Unavailable Adarsh New Consulting Unavailable Bro Banerjee Consulting Unavailable Felix Smith Consulting Unavailable Flavio Ramirez Consulting Unavailable Susana Montgomery Consulting Unava ilable Selma Momin Consulting Unavailable Abundio Aldanaamaoscar Consulting Unavailable Brian Patel Consulting Unavailable Devon Johnson Consulting Unavailable John Mckeon Consulting Unavailable Scotty Dill Consulting Unavailable Felisa Saxena Consulting Unavailable BolSami Foster Consulting Unavaila Shelby Hrenandez Consulting Unavailable Jun GAGNON, Demarcus Rojas Attending Unavailabl e Jun II, Demarcus Rojas Admitting Unavailabl e Burton Adarsh Primary Care Unavailable [place] II, Demarcus Rojas Attending Unavailabl e Manrique Hanover Primary Care Unavailable [place] II, Demarcus M Admitting Unavailabl e [place] II, Demarcus M Attending Unavailabl e Burton Hanover Primary Care Unavailable Jun II, Demarcus M Admitting Unavailabl e [place] II, Demarcus M Admitting Unavailabl e [place] II, Demarcus Rojas Attending Unavailabl e Burton Adarsh Primary Care Unavailable [place] II, Demarcus M Admitting Unavailabl e [place] II, Demarcus Rojas Attending Unavailabl e Burton Adarsh Primary Care Unavailable Keerthi Trujillo Attending Unavailable Keerthi Trujillo Attending Unavailable Allergies Allergy Classification Reported Allergen(s) Allergy Type Date of Onset Reaction(s) Facility (1 source) Nitrofurantoin Drug Allergy [facility] Repository (20 sources) Nitrofurantoin; Translations: [nitrofurantoin] Drug Allergy 9 [facility] (1 source) NITROFURANTOIN MONOHYD/M-CRYST; Translations: [NITROFURANTOIN MONOHYD/M-CRYST] Propensity to adverse reactions to drug (disorder) 4 [facility] Repository (6 sources) oxyCODONE; Translations: [oxycodone] Drug Allergy 5 [facility] Medications Current Medications Medication Drug Class(es) Dates Sig (Normalized) Sig (Original) acetaminophen 500 mg oral tablet (20 sources) Start: 08-17-2024 take 2 tablets by mouth every eight hours Acetaminophen 500 mg tablet Active 1000 MG PO Q8H 180 August 17, 2024 12:00am MED TO BED UPON DISCHARGE. DOS 08/29/24 Complies with drug therapy Start: 09-29-2018 End: 08-29-2024 Acetaminophen 500 mg Tablet Active 500 MG PO As Directed as needed for pain August 29, 2024 12:00am On Hold: Resume on 09/28/24. Complies with drug therapy aspirin 81 mg delayed release oral tablet (20 sources) Platelet Aggregation Inhibitor, Nonsteroidal Anti-inflammatory Drug Start: 08-17-2024 take 1 tablet by mouth twice daily Aspirin 81 mg tablet,delayed release (DR/EC) Active 81 MG PO Twice daily 70 35 August 17, 2024 12:00am MED TO BED UPON DISCHARGE. DOS 08/29/24 Complies with drug therapy Start: 01-01-2020 take 1 mg by mouth once daily aspirin 81 mg oral tablet mg tab(s), Oral, Daily, Refills(s) 0 Start Date: 01/01/20 Status: Ordered Start: 07-26-2018 End: 09-29-2018 take 1 tablet by mouth once daily Aspirin 81 mg Tablet,Delayed Release (Dr/Ec) Active 81 MG PO Daily 30 September 29, 2018 12:00am On Hold: Resume on 10/04/24. Complies with drug therapy Atogepant (Qulipta) 60 MG tablet (8 sources) [...] tablet (20 sources) HMG-CoA Reductase Inhibitor Start: 01-01-2020 atorvastatin Oral, Daily, Refills(s) 0, High cholesterol Start Date: 01/01/20 Status: Ordered Start: 01-01-2020 atorvastatin O ral, Daily, Refills(s) 0 Start Date: 01/01/20 Status: Ordered Start: 07-26-2018 End: 08-11-2024 take 1 tablet by mouth at bedtime Atorvastatin 40 mg Tablet Discontinued 40 MG PO Bedtime September 29, 2018 12:00am August 11, 2024 9:43am calcium carbonate 1250 mg / cholecalciferol 200 [...] TAB PO Daily September 29, 2018 12:00am Complies with drug therapy Calcium Carbonate-Vitamin D3 (Oyster Shell Calcium-Vit D3) 500 mg(1,250mg) -200 unit Tablet (7 sources) Start: 09-29-2018 take 1 tablet by mouth once daily Calcium Carbonate-Vitamin D3 (Oyster Shell Calcium-Vit D3) 500 mg(1,250mg) -200 unit Tablet Active 1 TAB PO Daily September 29, 2018 12:00am candesartan cilexetil 16 mg / hydroCHLOROthiazide 12.5 mg oral tablet (20 sources) Thiazide Diuretic, Angiotensin 2 Receptor Roxy Start: 06-08-2024 Candesartan-Hydrochlo rothiazid 16-12.5 mg tablet Active TAB PO June 08, 2024 12:00am Start: 01-12-2024 End: 02-15-2025 take 1 tablet by mouth once daily in the morning Candesartan-Hydrochlorothiazid 16-12.5 m g tablet Active 1 TAB PO Every morning June 08, 2024 1:00am Complies with drug therapy cefdinir 300 mg oral capsule (4 sources) Cephalosporin Antibacterial Start: 06-23-2023 cefdinir 300 mg Cap Refills(s) 0 Start Date: 06/23/23 Status: Ordered celecoxib 200 mg oral capsule (8 sources) Nonsteroidal Anti-inflammatory Drug Start: 08-17-2024 take 1 capsule by mouth twice daily Celecoxib 200 mg capsule Active 200 MG PO Twice daily August 17, 2024 12:00am MED TO BED UPON DISCHARGE. DOS 08/29/24 Complies with drug therapy cholecalciferol 0.05 mg oral tablet (20 sources) Vitamin D Start: 01-10-2024 take 1 tablet by mouth once in the morning cholecalciferol (Vitamin D-3) 50 MCG (2000 UT) tablet Indications: Vitamin D deficiency Take 1,000 Units by mouth in the morning. 90 tablet 1 01/10/2024 Active Start: 09-29-2018 take 1 tablet by antoni once daily Cholecalciferol (Vitamin D3) (Vitamin D3) 1,000 unit Tablet Active 1000 UNIT PO Daily September 29, 2018 12:00am Complies with drug therapy Start: 07-26-2018 End: 09-29-2018 take 1 capsule by mouth once daily Cholecalciferol (Vitamin D3) (Vitamin D3) 1,000 unit Capsule Discontinued 1000 UNIT PO Daily July 26, 2018 1:00am September 29, 2018 1:39pm Citracal Plus Bone Density Builder (4 sources) Start: 01-01-2020 Citracal Plus Bone Density Builder Oral, Daily, Refill(s) 0, Prophylaxis Start Date: 01/01/20 Status: Ordered Start: 01-01-2020 Citracal Plus Bone Density Builder Oral, Daily, Refill(s) 0 Start Date: 01/01/20 Status: Ordered latanoprost (4 sources) Prostaglandin Analog Start: 01-06-2021 latanoprost ophthalmic qPM, Refill(s) 0 Start Date: 01/06/21 Status: Ordered latanoprostene bunod 0.24 mg/ml ophthalmic solution (20 sources) Start: 10-02-2024 take 1 drop(s) into the eye(s) once daily Latanoprostene Bunod (Vyzulta) 0.024 % solution Indications: Primary open angle glaucoma (POAG) of left eye, mild stage Administer 1 drop into the left eye Daily 5 mL 5 10/02/2024 Active Start: 06-08-2024 take 0.024 drop(s) i nto the eye(s) once daily in the morning Latanoprostene Bunod (Vyzulta) 0.024 % drops Active 1 DROPS OPHTHALMIC Every morning June 08, 2024 1:00am Complies with drug therapy Start: 06-08-2024 Latanoprostene Bunod (Vyzulta) 0.024 % drops Active DROPS OPHTHALMIC June 08, 2024 12:00am Start: 06-09-2023 End: 10-02-2024 take 1 drop(s) into the eye(s) at bedtime Vyzulta 0.024 % solution instill 1 drop into left eye at bedtime 06/09/2023 10/02/2024 Discontinued (Reorder) meclizine hydrochloride 25 mg oral tablet (3 [...] 01/10/2024 02/14/2024 Discontinued Multiple Vitamin (multivitamin) capsule (20 sources) Start: 01-10-2024 take 1 capsule by mouth once daily Multiple Vitamin (multivitamin) capsule Indications: Routine general medical examination at a health care facility Take 1 capsule by mouth 1 (one) time each day at the same time 90 capsule 1 01/10/2024 Active Multivitamin (Daily Multi-Vitamin) tablet (9 sources) Start: 08-11-2024 take 1 tablet by mouth once daily Multivitamin (Daily Multi-Vitamin) tablet Active 1 TAB PO Daily August 11, 2024 12:00am Complies with drug therapy Start: 08-11-2024 take 1 tablet by antoni once daily Multivitamin (Daily Multi-Vitamin) tablet Active 1 TAB PO Daily August 11, 2024 12:00am omeprazole 20 mg delayed release oral capsule (20 sources) Proton Pump Inhibitor Start: 08-11-2024 take 2 capsules by mouth once daily Omeprazole 20 mg Capsule,Delayed Release(Dr/Ec) Active 40 MG PO Daily August 11, 2024 12:00am Complies with drug therapy Start: 06-23-2023 take 1 capsule by mo [facility] once daily omeprazole (PriLOSEC) [address] capsule Indications: GERD without esophagitis Take 1 capsule (40 mg) by mouth Daily 100 capsule 3 01/12/2024 Active Start: 09-29-2018 End: 08-11-2024 take 1 capsule by mouth once daily Omeprazole 20 mg Capsule,Delayed Release(Dr/Ec) Discontinued 20 MG PO Daily September 29, 2018 12:00am August 11, 2024 9:43am sulfamethoxazole 800 mg / trimethoprim 160 mg oral tablet (1 source) Dihydrofolate Reductase Inhibitor Antibacterial, Sulfonamide Antimicrobial Start: 07-16-2023 End: 07-21-2023 Bactrim D.S. 800 mg-160 mg Tab 1 tab(s), Oral, BID for 5 day(s), 10 tab(s), Refill(s) 0, [id number], 154, cm, 07/15/23 15:50:00 EST, Height/Length Dosing, 72.2, kg, 07/15/23 15:50:00 EST, Weight Dosing Start Date: 07/16/23 Stop Date: 07/21/23 Status: Ordered tamsulosin hydrochloride 0.4 mg oral capsule (4 sources) alpha-Adrenergic Roxy Start: 06-23-2023 tamsulosin 0.4 mg Cap Refills(s) 0 Start Date: 06/23/23 Status: Ordered topiramate 25 mg oral tablet (20 sources) Start: 01-01-2020 End: 02-14-2024 take 1 tablet by mouth in the morning topiramate (Topamax) 25 MG tablet Indications: Migraine without aura and without status migrainosus, not intractable (CMS/HCC) Take 1 tablet (25 mg) by mouth in the morning and 1 tablet (25 mg) before bedtime. 180 tablet 2 01/10/2024 02/14/2024 Discontinued Start: 07-26-2018 End: 08-11-2024 take 1 tablet by mouth once daily Topiramate (Topamax) 25 mg Tablet Discontinued 25 MG PO Daily 30 September 29, 2018 12:00am August 11, 2024 9:42am Vitamin D3 (4 sources) Start: 01-01-2020 take 10 ug by mouth once daily Vitamin D3 10 mcg, Oral, Daily, Refills(s) 0, Prophylaxis Start Date: 01/01/20 Status: Ordered Start: 01-01-2020 Vitamin D3 Ref ills(s) 0 Start Date: 01/01/20 Status: Ordered Completed/Discontinued Medications Medication Drug Class(es) Dates Sig (Normalized) Sig (Original) acetaminophen 325 mg / HYDROcodone bitartrate 5 mg oral tablet (20 sources) Opioid Agonist Start: 08-12-2018 End: 09-29-2018 take 2 tablets by mouth every six hours as needed for pain Hydrocodone-Acetam inophen 5-325 mg Tablet Discontinued 2 TAB PO Every 6 hours as needed for Pain 56 7 September 23, 2018 September 29, 2018 1:39pm benzonatate 100 mg oral capsule (20 sources) Non-narcotic Antitussive Start: 11-03-2018 End: 02-22-2019 take 1 capsule by mouth three times daily as needed for cough Benzonatate (Tessalon Perles) 100 mg Capsule Discontinued 100 MG PO Three times daily as needed for Cough 60 November 03, 2018 12:00am November 03, 2018 [...] mg calcium- 500 unit Tablet Extended Release (11 sources) Start: 09-13-2018 End: 09-29-2018 take 1 tablet by mouth once daily Calcium Carb, Citrate-Vit D3 (Citracal-D3 Slow Release) 600 mg calcium- 500 unit Tablet Extended Release Discontinued 1 TAB PO Daily September 13, 2018 12:00am September 29, 2018 1:39pm Start: 09-13-2018 End: 09-29-2018 take 1 tablet by mouth once daily Calcium Carb, Citrate-Vit D3 (Citracal-D3 Slow Release) 600 mg calcium- 500 unit Tablet Extended Release Discontinued 1 TAB PO Daily September 12, 2018 11:00pm September 29, 2018 12:39pm Calcium Phosphate-Vitamin D3 (Citracal-D3 Gummies) 250 mg calcium- 500 unit Tablet,Chewable (12 sources) Start: 07-26-2018 End: 09-13-2018 take 1 [...] 26, 2018 1:00am September 13, 2018 2:27pm cefadroxil 500 mg oral capsule (8 sources) Cephalosporin Antibacterial Start: 08-17-2024 End: 09-14-2024 take 1 capsule by mouth every twelve hours Cefadroxil 500 mg capsule Discontinued 500 MG PO Q12H 14 7 August 175 12:00am September 14, 2024 12:47pm MED TO BED UPON DISCHARGE. DOS 08/29/24 cephalexin 500 mg oral capsule (12 sources) Cephalosporin Antibacterial Start: 09-23-2018 End: 09-29-2018 take 1 capsule by mouth four times daily Cephalexin 500 mg Capsule Discontinued 500 MG PO Four times daily 16 4 September 23, 2018 12:00am September 29, 2018 1:39pm chlorhexidine gluconate 1.2 mg/ml mouthwash (20 sources) Start: 09-23-2018 End: 06-08-2024 Chlorhexidine Gluconate 0.12 % Mouthwash Discontinued 15 ML MUCOUS MEM Three times daily 1000 September 29, 2018 12:00am June 08, 2024 10:42am codeine phosphate 2 mg/ml / guaiFENesin 20 mg/ml oral solution (12 sources) Opioid Agonist Start: 11-03-2018 End: 06-08-2024 take 1 mL by mouth every four to six hours as needed for cough Codeine-Guaifenes in 10-100 mg/5 mL Liquid Discontinued 10 ML PO EVERY 4-6 HOURS as needed for Cough 200 7 November 03, 2018 12:00am June 08, 2024 10:43am docusate sodium 100 mg oral capsule (12 sources) Start: 09-29-2018 End: 06-08-2024 take 1 capsule by mouth twice daily as needed for constipation Docusate Sodium 100 mg Capsule Discontinued 100 MG PO Twice daily as needed for Constipation 60 September 29, 2018 12:00am June 08, 2024 10:43am docusate sodium 50 mg / sennosides, correction 8.6 mg oral tablet (8 sources) Start: 08-17-2024 End: 10-18-2024 take 2 tablets by mouth once daily Sennosides-Docusa te Sodium (Senokot-S) 8.6-50 mg tablet Discontinued 2 TAB PO daily 60 August 17, 2024 12:00am October 18, 2024 11:21am MED TO BED UPON DISCHARGE. DOS 08/29/24 heparin sodium, porcine 5000 unt/ml injectable solution (12 sources) Unfractionated Heparin, Anti-coagulant Start: 09-23-2018 End: 09-29-2018 inject 5000 [IU] by subcutaneous injection every twelve hours Heparin (Porcine) 5,000 unit/mL Solution Discontinued 5000 UNIT SUBCUT Every 12 hours 28 14 September 23, 2018 12:00am September 29, 2018 1:39pm Lidocaine (12 sources) Antiarrhythmic, Amide Local Anesthetic Start: 09-29-2018 End: 06-08-2024 apply 1 dose topically once daily Lidocaine (Aspercreme (Lidocaine)) 4 % Adhesive Patch,Medicated Discontinued 1 PATCH TOPICAL Daily September 29, 2018 12:00am June 08, 2024 10:43am Start: 09-29-2018 End: 06-08-2024 apply 1 dose topically once daily Lidocaine (Aspercreme (Lidocaine)) 4 % Adhesive Patch,Medicated Discontinued 1 PATCH TOPICAL Daily September 28, 2018 11:00pm June 08, 2024 9:43am Start: 09-29-2018 apply 1 dose topical ly once daily Lidocaine (Aspercreme (Lidocaine)) 4 % Adhesive Patch,Medicated Active 1 PATCH TOPICAL Daily September 29, 2018 12:00am methylPREDNISolone 4 mg oral tablet (12 sources) Corticosteroid Start: 09-23-2018 End: 09-29-2018 Methylprednisolone 4 mg Tablet Discontinued 24 MG PO Daily Taper: Start: September 24, 2018 9:00am End: September 25, 2018 8:59am Frequency: ONCE@0900 Days: 1 Hours: 0 Dose: 24 Start: September 25, 2018 9:00am End: September 26, 2018 8:59am Frequency: ONCE@0900 Days: 1 Hours: 0 Dose: 20 Start: September 26, 2018 9:00am End: September 27, 2018 8:59am Frequency: ONCE@0900 Days: 1 Hours: 0 Dose: 16 Start: September 27, 2018 9:00am End: September 28, 2018 8:59am Frequency: ONCE@0900 Days: 1 Hours: 0 Dose: 12 Start: September 28, 2018 9:00am End: September 29, 2018 8:59am Frequency: ONCE@0900 Days: 1 Hours: 0 Dose: 8 Start: September 29, 2018 9:00am End: September 30, 2018 8:59am Frequency: ONCE@0900 Days: 1 Hours: 0 Dose: 4 1 September 23, 2018 12:00am September 29, 2018 1:39pm Please contact the information source for Taper Schedule details. Start: 09-23-2018 End: 09-29-2018 take 24 mg by mouth once daily Methylprednisolone Discontinued 24 MG PO Daily September 23, 2018 12:00am September 29, 2018 1:39pm Multivitamin (Multiple Vitamins) Tablet (12 sources) Start: 08-03-2018 End: 09-29-2018 take 1 [...] With Folic Acid (Thera) 400 mcg Tablet (12 sources) Start: 09-29-2018 End: 06-08-2024 take 1 tablet by mouth once daily Multivitamin With Folic Acid (Thera) 400 mcg Tablet Discontinued 1 TAB PO Daily September 29, 2018 12:00am June 08, 2024 10:43am Start: 09-29-2018 End: 06-08-2024 take 1 tablet [...] 2018 12:00am ondansetron 4 mg oral tablet (20 sources) Serotonin-3 Receptor Antagonist Start: 08-17-2024 End: 10-18-2024 take 1 tablet by mouth every eight hours as needed for nausea Ondansetron Hcl 4 mg tablet Discontinued 4 MG PO Q8H as needed for Nausea August 17, 2024 12:00am October 18, 2024 11:21am MED TO BED UPON DISCHARGE. DOS 08/29/24 Start: 10-05-2018 End: 06-08-2024 take 1 tablet by mouth three to four times daily as needed for nausea Ondansetron Hcl (Zofran) 4 mg Tablet Discontinued 4 MG PO 3 to 4 times per day as needed for Nausea October 05, 2018 12:00am June 08, 2024 10:43am oxyCODONE hydrochloride 5 mg oral tablet (20 sources) Opioid Agonist Start: 08-17-2024 End: 10-18-2024 take 1 tablet by mouth every four hours as needed for pain Oxycodone 5 mg tablet Discontinued 5 MG PO Q4H as needed for Pain 42 August 17, 2024 October 18, 2024 11:21am MED TO BED UPON DISCHARGE. DOS 08/29/24 Start: 09-29-2018 End: 11-03-2018 take 1 tablet by mouth every four hours as needed for pain Oxycodone 5 mg Tablet Discontinued 5 MG PO Every 4 hours as needed for Pain Scale 4 - 6 28 September 29, 2018 November 03, 2018 3:43pm polyethylene glycol 3350 38332 mg powder for oral solution (8 sources) Osmotic Laxative Start: 08-17-2024 End: 10-18-2024 Polyethylene Glycol 3350 (Miralax) 17 gram/dose powder Discontinued 17 GM PO daily 7 August 17, 2024 12:00am October 18, 2024 11:21am 1 packed mixed with 8 ounces of fluid. QUEtiapine 25 mg oral tablet (20 sources) Atypical Antipsychotic Start: 09-23-2018 End: 06-08-2024 Quetiapine 25 mg Tablet Discontinued 12.5 MG PO Daily at bedtime 15 September 29, 2018 12:00am June 08, 2024 10:44am Start: 09-23-2018 End: 09-29-2018 take 12.5 mg by mouth once daily at bedtime Quetiapine Active 12.5 MG PO Daily at bedtime 15 September 29, 2018 12:00am raNITIdine 150 mg oral tablet (12 sources) Histamine-2 Receptor Antagonist Start: 08-12-2018 End: 09-13-2018 take 1 tablet by mouth twice daily Ranitidine Hcl (Zantac) 150 mg tablet Discontinued 150 MG PO Twice daily August 12, 2018 12:00am September 13, 2018 2:29pm sennosides, correction 8.6 mg oral tablet (12 sources) Start: 09-29-2018 End: 06-08-2024 take 2 tablets by mouth once daily as needed Sennosides (Senna Lax) 8.6 mg Tablet Discontinued 2 TAB PO DAILY@12 as needed for If no BM in 2 days 60 September 29, 2018 12:00am June 08, 2024 10:44am traMADol hydrochloride 50 mg oral tablet (8 sources) Opioid Agonist Start: 08-17-2024 End: 10-18-2024 take 1 tablet by mouth every six hours as needed for pain Tramadol 50 mg tablet Discontinued 50 MG PO q6h as needed for Pain 28 August 17, 2024 12:00am October 18, 2024 11:21am MED TO BED UPON DISCHARGE. DOS 08/29/24 Problems Active Problems Problem Classification Problem Date Documented Date Episodic/Chronic Administrative/social admission (20 sources) Other reduced mobility; Translations: [Impaired mobility and activities of daily living] Onset: 06-28-2023 02-23-2019 Episodic Comment on above: Problem List clean-u p per request of Phys. EHR Cmte Blindness and vision defects (19 sources) 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[place]; Translations: [Legal blindness, [...] p per request of Phys. EHR Cmte Cancer; other and unspecified primary (20 sources) Malignant neoplasm of abdomen; Translations: [Malignant neoplasm of abdomen] Onset: 06-28-2023 01-01-2020 Chronic Cataract (20 sources) Age-related nuclear cataract of left eye; Translations: [Age-related nuclear cataract, left eye] Onset: 06-06-2024 06-06-2024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 Metabolic Panelon Anion gap [Moles/Vol] 12.7 mmol/L Normal 6.0-15.0 Th e [facility] Comment on above: Performed By: #### C BC, BMP ####[place] [id number] [place] [id number] [facility] Calcium [Mass/Vol] 9.0 mg/dL Normal 8.6-10.3 [facility] Comment on above: Performed By: #### C BC, BMP ####[address] [address] [facility] Chloride [Moles/Vol] 107 mmol/L Normal 98-107 [facility] Comment on above: Performed By: #### C BC, BMP ####[address] [address] [facility] CO2 [Moles/Vol] 22.4 mmol/L Normal 21.0-31.0 [facility] Comment on above: Performed By: #### C BC, BMP ####[address] [address] [facility] Creatinine [Mass/Vol] 0.83 mg/dL Normal 0.60-1.20 [facility] Comment on above: Performed By: #### C BC, BMP ####[place] [id number] [facility] Creatinine Clr Calc Pharmacy 53.67 Normal [facility] Comment on above: Result Comment: PERF ORMED BY: [facility] [address] [place] [address] PATHOLOGIST BARNWORKER GROOM SERA BAIRD M.D. Performed By: #### C BC, BMP ####[place] [id number] [facility] GFR/1.73 sq M.predicted MDRD (S/P/Bld) [Vol rate/Area] mL/min/{1.73_m2} Normal [facility] Comment on above: Performed By: #### C BC, BMP ####[place] [id number] [facility] Glucose [Mass/Vol] 103 mg/dL High 70-100 [facility] Comment on above: Result Comment: [place] Glucose Reference Range is dependent on time and content of last meal. Glucose of more than 200 mg/dL in a nonstressed, ambulatory subject supports the diagnosis of Diabetes Mellitus. ADA recommended reference range Performed By: #### C KRISTINA, BMP ####[place] [id number] [facility] Potassium [Moles/Vol] 4.1 mmol/L Normal 3.5-5.1 [facility] Comment on above: Performed By: #### C BC, BMP ####[place] [id number] [facility] Sodium [Moles/Vol] 138 mmol/L Normal 136-145 [facility] Comment on above: Performed By: #### C KRISTINA, BMP ####[place] [id number] [facility] Urea nitrogen [Mass/Vol] 31 mg/dL High 7-25 [facility] Comment on above: Performed By: #### C BC, BMP ####[place] [id number] [facility] Complete Blood Count Auto Di ffon 08-30-2024 Basophils (Bld) [#/Vol] 0.0 10*3/uL Normal 0.0-0.2 [facility] Comment on above: Result Comment: PERF ORMED BY: [facility] [address] [place] [id number] PATHOLOGIST BARNWORKER GROOM SERA BAIRD M.D. Performed By: #### C BC, BMP ####[place] [id number] [facility] Basophils/100 WBC (Bld) 0.4 % Normal . [facility] Comment on above: Performed By: #### C BC, BMP ####[place] [id number] [facility] Eosinophils (Bld) [#/Vol] 0.0 10*3/uL Normal 0.0-0.45 [facility] Comment on above: Performed By: #### C BC, BMP ####[place] [id number] [facility] Eosinophils/100 WBC (Bld) 0.1 % Normal . [facility] Comment on above: Performed By: #### C BC, BMP ####[address] Erythrocyte distribution width (RBC) [Ratio] 14.2 % Normal 11.9-15.3 The [facility] Comment on above: Performed By: #### C BC, BMP ####[place] [id number] [facility] Hematocrit (Bld) [Volume fraction] 33.1 % Low 34.0-46.4 [facility] Comment on above: Performed By: #### C BC, BMP ####[place] [id number] [facility] Hemoglobin (Bld) [Mass/Vol] 11.3 g/dL Low 11.8-15.4 [facility] Comment on above: Performed By: #### C BC, BMP ####[place] [id number] [facility] Lymphocytes (Bld) [#/Vol] 1.0 10*3/uL Normal 1.00-4.8 [facility] Comment on above: Performed By: #### C BC, BMP ####[place] [id number] [facility] Lymphocytes/100 WBC (Bld) 10.8 % Normal . [facility] Comment on above: Performed By: #### C BC, BMP ####[address] MCH (RBC) [Entitic mass] 30.5 pg Normal 24.7-34.3 [facility] Comment on above: Performed By: #### C BC, BMP ####[address] MCV (RBC) [Entitic vol] 89.1 fL Normal 80-100 [facility] Comment on above: Performed By: #### C BC, BMP ####[address] Mean Corpuscular HGB Conc 34.2 g/dL Normal 32.0-35.0 [facility] Comment on above: Performed By: #### C BC, BMP ####[address] Monocytes (Bld) [#/Vol] 0.9 10*3/uL High 0.0-0.8 [facility] Comment on above: Performed By: #### C BC, BMP ####[address] Monocytes/100 WBC (Bld) 9.1 % Normal . [facility] Comment on above: Performed By: #### C BC, BMP ####[address] Neutrophils (Bld) [#/Vol] 7.5 10*3/uL Normal 1.8-7.7 [facility] Comment on above: Performed By: #### C BC, BMP ####[place] [id number] [facility] Neutrophils/100 WBC (Bld) 79.6 % Normal . [facility] Comment on above: Performed By: #### C BC, BMP ####[address] NRBC% 0.1 /100{WBC} Normal 0-0.5 [facility] Comment on above: Performed By: #### C BC, BMP ####[place] [address] [place] [address] [facility] Platelet mean volume (Bld) [Entitic vol] 8.4 fL Normal 6.3-10.7 [facility] Comment on above: Performed By: #### C BC, BMP ####[place] [address] [place] [address] [facility] Platelets (Bld) [#/Vol] 368 10*3/uL Normal 150-450 [facility] Comment on above: Performed By: #### C KRISTINA, BMP ####[place] [address] [place] [address] [facility] RBC (Bld) [#/Vol] 3.71 10*6/uL Normal 3.60-5.00 [facility] Comment on above: Performed By: #### C KRISTINA, BMP ####[place] [id number] [facility] WBC (Bld) [#/Vol] 9.5 10*3/uL Normal 3.8-11.6 [facility] Comment on above: Performed By: #### C KRISTINA, BMP ####[place] [id number] [facility] Pathology study report docum entOrdered By: Sera Baird on 08-30-2024 Pathology study [facility] Other Phone: [place] 08-29-2024 L ------ Specimen: [id number] Received: 08/29/24 Status: JENNIFER Morelos Num: [id number] Spec Type: Surgical Subm Dr: Demarcus Barahona MD Tissues: A Gross Only (L KNEE) Procedures: Level 1 Gross Age/ Patient Sex Location Account Attending Physician GermanJeannette Carmen 79/F 4N [id number] Dmearcus Barahona MD SPEC NUM: [id number] RECD: 08/29/24 STATUS: JENNIFER MORELOS NUM: [id number] DARNELL: 08/29/24-[address]: Demarcus Barahona MD ENTERED: 08/29/24 [facility] DR: ERVIN TYPE: Surgical DEPT: S ENTERED BY: [id number] RECV BY: [id number] ORDERED: Level 1 Gross ORDERED: Level 1 Gross Pathological Diagnosis Bone and tissue, left knee, arthroplasty: Degenerative changes consistent with osteoarthritis. Gross examination only. Clinical Information L knee osteoarthritis Gross Description Part A is received in formalin labeled with the patients name, date of , and bone and tissue L knee are stanton-rodriges, granular bone fragments, 7.5 x 5.5 x 2.5 cm in aggregate with detached fragments of fibrofatty tissue, 5 x 4 x 1.5 cm in aggregate. The bone is consistent with portions of femoral condyle and tibial plateau. The articular surfaces are remarkable for granular degeneration and eburnation; the medullary bone is rodriges, firm and uniform. The fibrofatty tissue is sectioned to reveal stanton-pink to yellow-rodriges, glistening, and uniform cut surfaces. GROSS ONLY-JG CPT Codes 44776 Specimen: [id number] Received: 08/29/24 Status: JENNIFER Marco Antonio Num: [id number] Spec Type: Surgical Subm Dr: Demarcus Barahona MD Tissues: A Gross Only (L KNEE) Procedures: Level 1 Gross Patient: GermanJeannette [id number] (Continued) Signed (signature on file) Sera Baird MD 08/30/24 1752 Normal [facility] X-ray reportOrdered By: Tomas Tafoya on 08-29-2024 Study report [address] [address] XRay Report Signed Patient: Jeannette Porter MR#: [id number] : 1945 Acct:[id number] Age/Sex: 79 / F ADM Date: 5 Loc: 4N Room: [address] [place] [address] Type: REG SDC Attending Dr: Demarcus Barahona II, MD Copies to: Demarcus Barahona MD~ Ordering Provider: Demarcus Barahona MD Date of Service: 08/29/24 XR/XR knee LT 2V: POST OP LEFT KNEE - 2 views CLINICAL HISTORY: Postop left TKA COMPARISON: None FINDINGS: Soft tissues demonstrate postoperative changes. No hardware complication. XR/XR knee LT 2V IMPRESSION: NO HARDWARE COMPLICATION. Impression dictated by: Devon Tafoya Jr., D.O.08/29/2024 3:38 PM Dictation Location: [place] [address] Transcribed By: [facility] 08/29/24 153 Dictated By: Devon Tafoya Jr, DO 08/29/24 1538 Signed By: 08/29/24 1538 [facility] XR knee LT 2Von 08-29-2024 XR knee LT 2V [address] [address] XRay Report Signed Patient: Jeannette Porter MR#: [id number] 4 : 1945 Acct:[id number] Age/Sex: 79 / F ADM Date: 08/29/24 Loc: 4N Room: [address] [place] [address] Type: REG SDC Attending Dr: Demarcus Barahona II, MD Copies to: Demarcus Barahona MD Ordering Provider: Demarcus Barahona MD Date of Service: 08/29/24 XR/XR knee LT 2V: POST OP LEFT KNEE - 2 views CLINICAL HISTORY: Postop left TKA COMPARISON: None FINDINGS: Soft tissues demonstrate postoperative changes. No hardware complication. XR/XR knee LT 2V IMPRESSION: NO HARDWARE COMPLICATION. Impression dictated by: Devon Tafoya Jr., D.OYina08/29/2024 3:38 PM Dictation Location: [facility]- Transcribed By: [facility] 08/29/24 1538 Dictated By: Devon Tafoya Jr, DO 08/29/24 1538 Signed By: 08/29/24 1538 Normal [facility] X-ray reportOrdered By: Samia Fink on 08-17-2024 Study report [facility] [address] [place] [address] XRay Report Signed Patient: Jeannette Porter MR#: [id number] : 1945 Acct:[id number] Age/Sex: 79 / F ADM Date: 5 Loc: [facility] Room: Type: [facility] Attending Dr: Demarcus Barahona II, MD Copies to: Demarcus Barahona MD~ Ordering Provider: Demarcus Barahona MD Date of Service: 08/17/24 XR/XR femur LT 2V*: M17.12 - Unilateral primary osteoarthritis, left knee ([id number]) XR/XR tibia fibula LT 2V*: M17.12 - Unilateral primary osteoarthritis, left knee LEFT FEMUR AND TIB-FIB - one view CLINICAL HISTORY: Preoperative planning for left knee replacement COMPARISON: Left knee and pelvis 06/08/2024 AP standing view of both lower legs were obtained from the top of the iliac crest down to the ankles using a long cassette. There is osteopenia. 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 There is no acute fracture at either femur. There is nodislocation at the hips or knees. There is narrowing at the lateral tibiofemoral compartments bilaterally, also seen on the prior. There is mild marginal spurring. No soft tissue abnormalities are seen. The tibia and fibula are intact. There is no dislocation at the ankles. The soft tissues are within normal limits. XR/XR tibia fibula LT 2V* IMPRESSION: SIMILAR DEGENERATIVE CHANGES AT THE KNEES WITH GENU VALGUM DEFORMITY. Impression dictated by: oNlvia Fink M.D.08/17/2024 3:56 PM Dictation Location: [place] [address] Transcribed By: [facility] 08/17/24 155 Dictated By: Nolvia Fink MD 08/17/24 155 Signed By: 08/17/241555 [facility] Work Phone: XR femur LT 2V*on 08-17-2024 XR femur LT 2V* [facility] [address] [place] [id number] XRay Report Signed Patient: Jeannette Porter MR#: [id number] 4 : 1945 Acct:[id number] Age/Sex: 79 / F ADM Date: 08/17/24 Loc: [facility] Room: Type: [facility] Attending Dr: Demarcus Barahona II, MD Copies to: Demarcus Barahona MD Ordering Provider: Demarcus Barahona MD Date of Service: 08/17/24 XR/XR femur LT 2V*: M17.12 - Unilateral primary osteoarthritis, left knee ([id number]) XR/XR tibia fibula LT 2V*: M17.12 - Unilateral primary osteoarthritis, left knee LEFT FEMUR AND TIB-FIB - one view CLINICAL HISTORY: Preoperative planning for left knee replacement COMPARISON: Left knee and pelvis 06/08/2024 AP standing view of both lower legs were obtained from the top of the iliac crest down to the ankles using a long cassette. There is osteopenia. 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 There is no acute fracture at either femur. There is no dislocation at the hips or knees. There is narrowing at the lateral tibiofemoral compartments bilaterally, also seen on the prior. There is mild marginal spurring. No soft tissue abnormalities are seen. The tibia and fibula are intact. There is no dislocation at the ankles. The soft tissues are within normal limits. XR/XR tibia fibula LT 2V* IMPRESSION: SIMILAR DEGENERATIVE CHANGES AT THE KNEES WITH GENU VALGUM DEFORMITY. Impression dictated by: Nolvia Fink M.D.08/17/2024 3:56 PM Dictation Location: [place] [address] Transcribed By: SHANON 08/17/241555 Dictated By: Nolvia Fink MD 08/17/241552 Signed By: 08/17/241555 Normal [facility] Anisocytosis LM Ql (Bld)Orde red By: Demarcus Barahona on 08-11-2024 Anisocytosis Ql (Bld) Anisocytosis [Pres ence] in Blood by Light microscopy [facility] Appearance of UrineOrdered B y: Demarcus Barahona on 08-11-2024 Appearance (U) Urine appearance Clear [facility] Bacteria [Presence] in Urine by AutomatedOrdered By: Demarcus Barahona on 08-11-2024 Bacteria Auto Ql (U) Bacteria [Presence] in Urine by Automated High None Seen [facility] Basic Metabolic Panelon 07-29 Anion gap [Moles/Vol] 12.5 mmol/L Normal 6.0-15.0 Th e [facility] Comment on above: Performed By: #### S CAN CBC, BMP #### [place] [address] [place] #### FRUC #### [facility] , Calcium [Mass/Vol] 10.7 mg/dL High 8.6-10.3 [facility] Comment on above: Result Comment: PERF ORMED BY: [place] [address] PATHOLOGIST BARNWORKER GROOM SERA BAIRD M.D. Performed By: #### S CAN CBC, BMP #### [facility] [address] [place] [address] [place] #### FRUC #### [facility] , Chloride [Moles/Vol] 105 mmol/L Normal 98-107 [facility] Comment on above: Performed By: #### S CAN CBC, BMP #### [place] [address] [place] #### FRUC #### [facility] , CO2 [Moles/Vol] 25.0 mmol/L Normal 21.0-31.0 [facility] Comment on above: Performed By: #### S CAN CBC, BMP #### [facility] [address] [place] [address] [place] #### FRUC #### [facility] , Creatinine [Mass/Vol] 0.65 mg/dL Normal 0.60-1.20 [facility] Comment on above: Performed By: #### S CAN CBC, BMP #### [facility] [address] [place] [address] [place] #### FRUC #### [facility] , GFR/1.73 sq M.predicted MDRD (S/P/Bld) [Vol rate/Area] mL/min/{1.73_m2} Normal [facility] Comment on above: Performed By: #### S CAN CBC, BMP #### [place] [address] [place] #### FRUC #### [facility] , Glucose [Mass/Vol] 91 mg/dL Normal 70-100 [facility] Comment on above: Result Comment: [place] Glucose Reference Range is dependent on time and content of last meal. Glucose of more than 200 mg/dL in a nonstressed, ambulatory subject supports the diagnosis of Diabetes Mellitus. ADA recommended reference range Performed By: #### S CAN CBC, BMP #### [facility] [address] [place] [address] [place] #### FRUC #### [facility] , Potassium [Moles/Vol] 4.5 mmol/L Normal 3.5-5.1 [facility] Comment on above: Performed By: #### S CAN CBC, BMP #### [facility] [address] [place] [address] [place] #### FRUC #### [facility] , Sodium [Moles/Vol] 138 mmol/L Normal 136-145 [facility] Comment on above: Performed By: #### S CAN CBC, BMP #### [facility] [address] [place] [address] [place] #### FRUC #### [facility] , Urea nitrogen [Mass/Vol] 19 mg/dL Normal 7-25 [facility] Comment on above: Performed By: #### S CAN CBC, BMP #### [facility] [address] [place] [address] [place] #### FRUC #### [facility] , Basophils Auto (Bld) [#/Vol] Ordered By: Demarcus Barahona on 08-11-2024 Basophils (Bld) [#/Vol] Automated basophil count 0.0-0.2 [facility] Basophils/100 WBC Auto (Bld) Ordered By: Demarcus Barahona on 08-11-2024 Basophils/100 WBC (Bld) Automated basophil % . [facility] Bilirubin Test strip Ql (U)O rdered By: Demarcus Barahona on 08-11-2024 Bilirubin Ql (U) Bilirubin.total [Pre sence] in Urine by Test strip Negative [facility] Calcium [Mass/volume] in Ser um or PlasmaOrdered By: Demarcus Barahona on 08-11-2024 Calcium [Mass/Vol] Calcium [Mass/volume ] in Serum or Plasma High 8.6-10.3 [facility] Carbon dioxide, total [Moles /volume] in Serum or PlasmaOrdered By: Demarcus Barahona on 08-11-2024 CO2 [Moles/Vol] Carbon dioxide, tota l [Moles/volume] in Serum or Plasma 21.0-31.0 [facility] Chloride [Moles/volume] in S kee or PlasmaOrdered By: Demarcus Barahona on 08-11-2024 Chloride [Moles/Vol] Chloride [Moles/vol ume] in Serum or Plasma 98-107 [facility] Color Auto (U)Ordered By: Reva Barahona on 08-11-2024 Color (U) Color of Urine by Auto Yellow [facility] Creatinine [Mass/volume] in Serum or PlasmaOrdered By: Demarcus Barahona on 08-11-2024 Creatinine [Mass/Vol] Creatinine [Mass/v olume] in Serum or Plasma 0.60-1.20 [facility] Dipstick and Microscopicon 0 08-11-2024 Appearance (U) Clear Normal Clear [facility] Comment on above: Order Comment: Name Collection Type:: Clean-Voided Midstream Performed By: #### C UU, ADDONUAPLUS ####[address] [address] [facility] Bacteria,Urine 1+ High None Seen [facility] Comment on above: Order Comment: Name Collection Type:: Clean-Voided Midstream Performed By: #### C UU, ADDONUAPLUS ####[address] [address] [facility] Bilirubin,Urine Negative Normal Negative [facility] Comment on above: Order Comment: Name Collection Type:: Clean-Voided Midstream Performed By: #### C UU, ADDONUAPLUS ####[address] [address] [facility] Color (U) Light-Yellow Normal Yellow [facility] Comment on above: Order Comment: Name Collection Type:: Clean-Voided Midstream Performed By: #### C UU, ADDONUAPLUS ####[address] [address] [facility] Glucose Ql (U) Normal Normal Normal [facility] Comment on above: Order Comment: Name Collection Type:: Clean-Voided Midstream Performed By: #### C UU, ADDONUAPLUS ####[address] [address] [facility] Hyaline Casts,Urine 0-8 Normal 0-8 [facility] Comment on above: Order Comment: Name Collection Type:: Clean-Voided Midstream Performed By: #### C UU, ADDONUAPLUS ####[address] [address] [facility] Ketones Ql (U) Negative Normal Negative [facility] Comment on above: Order Comment: Name Collection Type:: Clean-Voided Midstream Performed By: #### C UU, ADDONUAPLUS ####[address] Leukocyte esterase Test strip Ql (U) 3+ High Negative [facility] Comment on above: Order Comment: Name Collection Type:: Clean-Voided Midstream Performed By: #### C UU, ADDONUAPLUS ####[place] [id number] [facility] Mucus,Urine Rare Normal [facility] Comment on above: Order Comment: Name Collection Type:: Clean-Voided Midstream Result Comment: PERF ORMED BY: [facility] [address] [place] [address] PATHOLOGIST BARNWORKER GROOM SERA BAIRD M.D. Performed By: #### C UU, ADDONUAPLUS ####[address] Nitrite,Urine Positive High Negative [facility] Comment on above: Order Comment: Name Collection Type:: Clean-Voided Midstream Performed By: #### C UU, ADDONUAPLUS ####[place] [id number] [facility] Occult Blood,Urine Negative Normal Negative [facility] Comment on above: Order Comment: Name Collection Type:: Clean-Voided Midstream Result Comment: PERF ORMED BY: [facility] [address] [place] [address] PATHOLOGIST BARNWORKER GROOM SERA BAIRD M.D. Performed By: #### C UU, ADDONUAPLUS ####[place] [id number] [facility] pH (U) 6.0 [pH] Normal 5.0-9.0 [facility] Comment on above: Order Comment: Name Collection Type:: Clean-Voided Midstream Performed By: #### C UU, ADDONUAPLUS ####[place] [id number] [facility] Protein,Urine Negative Normal Negative [facility] Comment on above: Order Comment: Name Collection Type:: Clean-Voided Midstream Performed By: #### C UU, ADDONUAPLUS ####[address] RBC,Urine 1-2 Normal 0-4 [facility] Comment on above: Order Comment: Name Collection Type:: Clean-Voided Midstream Performed By: #### C UU, ADDONUAPLUS ####[address] Specificy [place],Urine 1.013 Normal 1.001-1.03 0 [facility] Comment on above: Order Comment: Name Collection Type:: Clean-Voided Midstream Performed By: #### C UU, ADDONUAPLUS ####[address] Squamous Epithelial Cell,Urine 1-2 Normal 0-2 [facility] Comment on above: Order Comment: Name Collection Type:: Clean-Voided Midstream Performed By: #### C UU, ADDONUAPLUS ####[address] Urobilinogen,Urine Normal Normal Normal [facility] Comment on above: Order Comment: Name Collection Type:: Clean-Voided Midstream Performed By: #### C UU, ADDONUAPLUS ####[place] [id number] [facility] WBC CLUMP, Urine Occasional High None Seen [facility] Comment on above: Order Comment: Name Collection Type:: Clean-Voided Midstream Performed By: #### C UU, ADDONUAPLUS ####[place] [id number] [facility] WBC,Urine 10-19 High 0-4 [facility] Comment on above: Order Comment: Name Collection Type:: Clean-Voided Midstream Performed By: #### C UU, ADDONUAPLUS ####[place] [id number] [facility] Eosinophils Auto (Bld) [#/Vo l]Ordered By: Demarcus Barahona on 08-11-2024 Eosinophils (Bld) [#/Vol] Automated eosinophil count 0.0-0.45 [facility] Eosinophils/100 WBC Auto (Bl d)Ordered By: Demarcus Barahona on 08-11-2024 Eosinophils/100 WBC (Bld) Automated eosinophil % . [facility] Epithelial cells.squamous [# /area] in Urine sediment by Automated countOrdered By: Demarcus Barahona on 08-11-2024 Epithelial cells.squamous Auto (Urine sed) [#/Area] Epithelial cells.squamous [#/area] in Urine sediment by Automated count 0-2 [facility] Erythrocyte distribution wid th Auto (RBC) [Ratio]Ordered By: Demarcus Barahona on 08-11-2024 Erythrocyte distribution width (RBC) [Ratio] Erythrocyte distribution width [Ratio] by Automated count 11.9-15.3 [facility] Erythrocyte morphology findi ng [Identifier] in BloodOrdered By: Demarcus Barahona on 08-11-2024 RBC morphology finding Nom (Bld) RBC morphology [facility] Erythrocytes [#/area] in Uri ne sediment by Automated countOrdered By: Demarcus Barahona on 08-11-2024 RBC Auto (Urine sed) [#/Area] Erythrocytes [#/area] in Urine sediment by Automated count 0-4 [facility] Fructosamineon 08-11-2024 Fructosamine 230 umol/L Normal 0-285 [facility] Comment on above: Result Comment: Publ ished reference interval for apparently healthy subjects between age 20 and 60 is 205 - 285 umol/L and in a poorly controlled diabetic population is 228 - 563 umol/L with a mean of 396 umol/L. Performed at: - [facility] [id number] [employer] Representative: Hollis Sanchez PhD, Phone: [phone] PERFORMED BY: [facility] [address] [place] [address] PATHOLOGIST BARNWORKER GROOM SERA BAIRD M.D. Performed By: #### S CAN CBC, BMP ####[facility] [address]#### FRUC ####[facility] , Fructosamine [Moles/volume] in Serum or PlasmaOrdered By: Demarcus Barahona on 08-11-2024 Fructosamine [Moles/Vol] Fructosamine [Moles/volume] in Serum or Plasma 0-285 [facility] Comment on above: Published reference interval for apparently healthysubjects between age 20 and 60 is 205 - 285 umol/L and in apoorly controlled diabetic population is 228 - 563 umol/Lwith a mean of 396 umol/L.Performed at: [facility] [id number] Director: Hollis Sanchez PhD, Phone: [phone] Glucose [Mass/volume] in Ser um or PlasmaOrdered By: Demarcus Barahona on 08-11-2024 Glucose [Mass/Vol] Glucose [Mass/volume ] in Serum or Plasma 70-100 [facility] Comment on above: ADA recommended refe rence rangeRandom Glucose Reference Range is dependent on time and content of last meal. Glucose of more than 200 mg/dL in a nonstressed, ambulatory subject supports the diagnosis of Diabetes Mellitus. Glucose [Mass/volume] in Uri ne by Test stripOrdered By: Demarcus Barahona on 08-11-2024 Glucose Test strip (U) [Mass/Vol] Glucose [Mass/volume] in Urine by Test strip Normal [facility] Hematocrit Auto (Bld) [Volum e fraction]Ordered By: Demarcus Barahona on 08-11-2024 Hematocrit (Bld) [Volume fraction] Hematocrit [Volume Fraction] of Blood by Automated count 34.0-46.4 [facility] Hemoglobin Test strip Ql (U) Ordered By: Demarcus Barahona on 08-11-2024 Hemoglobin Ql (U) Hemoglobin [Presence ] in Urine by Test strip Negative [facility] Hemoglobin [Mass/volume] in BloodOrdered By: eDmarcus Barahona on 08-11-2024 Hemoglobin (Bld) [Mass/Vol] Hemoglobin [Mass/volume] in Blood 11.8-15.4 [facility] Hyaline casts [#/area] in Ur ine sediment by Automated countOrdered By: Demarcus Baraohna on 08-11-2024 Hyaline casts Auto (Urine sed) [#/Area] Hyaline casts [#/area] in Urine sediment by Automated count 0-8 [facility] Ketones Test strip Ql (U)Ord ered By: Demarcus Barahona on 08-11-2024 Ketones Ql (U) Ketones [Presence] i n Urine by Test strip Negative [facility] Leukocyte clumps [Presence] in Urine by AutomatedOrdered By: Demarcus Barahona on 08-11-2024 Leukocyte clumps Auto Ql (U) Leukocyte clumps [Presence] in Urine by Automated High None Seen [facility] Leukocyte esterase [Presence ] in Urine by Test stripOrdered By: Demarcus Barahona on 08-11-2024 Leukocyte esterase Test strip Ql (U) Leukocyte esterase [Presence] in Urine by Test strip High Negative [facility] Leukocytes [#/area] in Urine sediment by Automated countOrdered By: Demarcus Barahona on 08-11-2024 WBC Auto (Urine sed) [#/Area] Leukocytes [#/area] in Urine sediment by Automated count High 0-4 [facility] Leukocytes [#/volume] correc benigno for nucleated erythrocytes in Blood by Automated counOrdered By: Demarcus Barahona on 08-11-2024 WBC corrected for nucl RBC Auto (Bld) [#/Vol] Leukocytes [#/volume] corrected for nucleated erythrocytes in Blood by Automated coun 3.8-11.6 [facility] Lymphocytes Auto (Bld) [#/Vo l]Ordered By: Demarcus Barahona on 08-11-2024 Lymphocytes (Bld) [#/Vol] Lymphocytes [#/volume] in Blood by Automated count 1.00-4.8 [facility] Lymphocytes/100 WBC Auto (Bl d)Ordered By: Demarcus Barahona on 08-11-2024 Lymphocytes/100 WBC (Bld) Lymphocytes/100 leukocytes in Blood by Automated count . [facility] MCH Auto (RBC) [Entitic mass ]Ordered By: Demarcus Barahona on 08-11-2024 MCH (RBC) [Entitic mass] MCH [Entitic mass] by Automated count 24.7-34.3 [facility] MCHC Auto (RBC) [Mass/Vol]Or dered By: Demarcus Barahona on 08-11-2024 MCHC (RBC) [Mass/Vol] MCHC [Mass/volume] by Automated count 32.0-35.0 [facility] MCV Auto (RBC) [Entitic vol] Ordered By: Demarcus Barahona on 08-11-2024 MCV (RBC) [Entitic vol] MCV [Entitic volume] by Automated count 80-100 [facility] Microcytes LM Ql (Bld)Ordere d By: Demarcus Barahona on 08-11-2024 Microcytes Ql (Bld) Microcytes [Presence ] in Blood by Light microscopy [facility] Monocytes Auto (Bld) [#/Vol] Ordered By: Demarcus Barahona on 08-11-2024 Monocytes (Bld) [#/Vol] Automated blood monocyte count 0.0-0.8 [facility] Monocytes/100 WBC Auto (Bld) Ordered By: Demarcus Barahona on 08-11-2024 Monocytes/100 WBC (Bld) Automated monocyte % . [facility] Mucus [Presence] in Urine by AutomatedOrdered By: Demarcus Barahona on 08-11-2024 Mucus Auto Ql (U) Mucus [Presence] in Urine by Automated [facility] Neutrophils Auto (Bld) [#/Vo l]Ordered By: Demarcus Barahona on 08-11-2024 Neutrophils (Bld) [#/Vol] Neutrophils [#/volume] in Blood by Automated count 1.8-7.7 [facility] Neutrophils/100 WBC Auto (Bl d)Ordered By: Demarcus Barahona on 08-11-2024 Neutrophils/100 WBC (Bld) Automated neutrophil % . [facility] Nitrite Test strip Ql (U)Ord ered By: Demarcus Barahona on 08-11-2024 Nitrite Ql (U) Nitrite [Presence] i n Urine by Test strip High Negative [facility] No Panel InformationOrdered By: Demarcus Barahona on 08-11-2024 Estimated GFR (CKD-EPI) > 60.0 mL/Min [facility] Creatinine Clearance (Chem N/A [facility] Nucleated erythrocytes [Pres ence] in Blood by Automated countOrdered By: Demarcus Barahona on 08-11-2024 Nucleated RBC Auto Ql (Bld) Nucleated erythrocytes [Presence] in Blood by Automated count 0-0.5 [facility] Platelet adequacy [Presence] in Blood by Light microscopyOrdered By: Demarcus Barahona on 08-11-2024 Platelets LM Ql (Bld) Platelet adequacy [Presence] in Blood by Light microscopy Normal [facility] Platelet mean volume Auto (B ld) [Entitic vol]Ordered By: Demarcus Barahona on 08-11-2024 Platelet mean volume (Bld) [Entitic vol] Platelet mean volume [Entitic volume] in Blood by Automated count 6.3-10.7 [facility] Platelet morphology finding [Identifier] in BloodOrdered By: Demarcus Barahona on 08-11-2024 Platelet morphology finding Nom (Bld) Platelet morphology finding [Identifier] in Blood Normal [facility] Platelets Auto (Bld) [#/Vol] Ordered By: Demarcus Barahona on 08-11-2024 Platelets (Bld) [#/Vol] Platelets [#/volume] in Blood by Automated count 150-450 [facility] Polychromasia [Presence] in Blood by Light microscopyOrdered By: Demarcus Barahona on 08-11-2024 Polychromasia LM Ql (Bld) Polychromasia [Presence] in Blood by Light microscopy [facility] Potassium [Moles/volume] in Serum or PlasmaOrdered By: Demarcus Barahona on 08-11-2024 Potassium [Moles/Vol] Potassium [Moles/v olume] in Serum or Plasma 3.5-5.1 [facility] Protein Test strip (U) [Mass /Vol]Ordered By: Demarcus Barahona on 08-11-2024 Protein (U) [Mass/Vol] Protein [Mass/vol ume] in Urine by Test strip Negative [facility] RBC Auto (Bld) [#/Vol]Ordere d By: Demarcus Barahona on 08-11-2024 RBC (Bld) [#/Vol] Erythrocytes [#/volu me] in Blood by Automated count 3.60-5.00 [facility] Scan and CBCon 08-11-2024 Anisocytosis Ql (Bld) Moderate Normal [facility] Comment on above: Performed By: #### S CAN CBC, BMP ####[facility] [place] [address] [place]#### FRUC ####[facility] , Basophils (Bld) [#/Vol] 0.1 10*3/uL Normal 0.0-0.2 [facility] Comment on above: Performed By: #### S CAN CBC, BMP ####[address]#### FRUC ####[facility] , Basophils/100 WBC (Bld) 1.4 % Normal . [facility] Comment on above: Performed By: #### S CAN CBC, BMP ####[address]#### FRUC ####[facility] , Eosinophils (Bld) [#/Vol] 0.2 10*3/uL Normal 0.0-0.45 [facility] Comment on above: Performed By: #### S CAN CBC, BMP ####[address]#### FRUC ####[facility] , Eosinophils/100 WBC (Bld) 4.1 % Normal . [facility] Comment on above: Performed By: #### S CAN CBC, BMP ####[place] [address] [place]#### FRUC ####[facility] , Erythrocyte distribution width (RBC) [Ratio] 14.6 % Normal 11.9-15.3 [facility] Comment on above: Performed By: #### S CAN CBC, BMP ####[place] [address] [place]#### FRUC ####[facility] , Hematocrit (Bld) [Volume fraction] 40.3 % Normal 34.0-46.4 [facility] Comment on above: Performed By: #### S CAN CBC, BMP ####[address] [place] [address] [place]#### FRUC ####[facility] , Hemoglobin (Bld) [Mass/Vol] 13.9 g/dL Normal 11.8-15.4 [facility] Comment on above: Performed By: #### S CAN CBC, BMP ####[address]#### FRUC ####[facility] , Lymphocytes (Bld) [#/Vol] 1.4 10*3/uL Normal 1.00-4.8 [facility] Comment on above: Performed By: #### S CAN CBC, BMP ####[address]#### FRUC ####[facility] , Lymphocytes/100 WBC (Bld) 32.4 % Normal . [facility] Comment on above: Performed By: #### S CAN CBC, BMP ####[address]#### FRUC ####[facility] , MCH (RBC) [Entitic mass] 30.5 pg Normal 24.7-34.3 [facility] Comment on above: Performed By: #### S CAN CBC, BMP ####[place] [address] [place]#### FRUC ####[facility] , MCV (RBC) [Entitic vol] 88.4 fL Normal 80-100 [facility] Comment on above: Performed By: #### S CAN CBC, BMP ####[place] [address] [place]#### FRUC ####[facility] , Mean Corpuscular HGB Conc 34.6 g/dL Normal 32.0-35.0 [facility] Comment on above: Performed By: #### S CAN CBC, BMP ####[place] [address] [place]#### FRUC ####[facility] , Microcytosis Moderate Normal [facility] Comment on above: Performed By: #### S CAN CBC, BMP ####[address]#### FRUC ####[facility] , Monocytes (Bld) [#/Vol] 0.4 10*3/uL Normal 0.0-0.8 [facility] Comment on above: Performed By: #### S CAN CBC, BMP ####[place] [address] [place]#### FRUC ####[facility] , Monocytes/100 WBC (Bld) 8.3 % Normal . [facility] Comment on above: Performed By: #### S CAN CBC, BMP ####[place] [address] [place]#### FRUC ####[facility] , Neutrophils (Bld) [#/Vol] 2.3 10*3/uL Normal 1.8-7.7 [facility] Comment on above: Performed By: #### S CAN CBC, BMP ####[address]#### FRUC ####[facility] , Neutrophils/100 WBC (Bld) 53.8 % Normal . [facility] Comment on above: Performed By: #### S CAN CBC, BMP ####[place] [address] [place]#### FRUC ####[facility] , NRBC% 0.1 /100{WBC} Normal 0-0.5 [facility] Comment on above: Performed By: #### S CAN CBC, BMP ####[place] [address] [place]#### FRUC ####[facility] , Platelet Estimate Normal Normal Normal [facility] Comment on above: Performed By: #### S CAN CBC, BMP ####[place] [address] [place]#### FRUC ####[facility] , Platelet mean volume (Bld) [Entitic vol] 7.9 fL Normal 6.3-10.7 [facility] Comment on above: Performed By: #### S CAN CBC, BMP ####[place] [address] [place]#### FRUC ####[facility] , Platelet Morphology Normal Normal Normal [facility] Comment on above: Result Comment: PERF ORMED BY: [address] [place] [address] PATHOLOGIST BARNWORKER GROOM SERA BAIRD M.D. Performed By: #### S CAN CBC, BMP ####[place] [address] [place]#### FRUC ####[facility] , Platelets (Bld) [#/Vol] 449 10*3/uL Normal 150-450 [facility] Comment on above: Performed By: #### S CAN CBC, BMP ####[place] [address] [place]#### FRUC ####[facility] , Polychromasia Slight Normal [facility] Comment on above: Performed By: #### S CAN CBC, BMP ####[place] [id number] [place]#### FRUC ####[facility] , RBC (Bld) [#/Vol] 4.56 10*6/uL Normal 3.60-5.00 [facility] Comment on above: Performed By: #### S CAN CBC, BMP ####[place] [address] [place]#### FRUC ####[facility] , WBC (Bld) [#/Vol] 4.3 10*3/uL Normal 3.8-11.6 [facility] Comment on above: Performed By: #### S CAN CBC, BMP ####[facility] [address]#### FRUC ####[facility] , Serum or plasma anion gap de terminationOrdered By: Demarcus Barahona on 08-11-2024 Anion gap [Moles/Vol] Serum or plasma an ion gap determination 6.0-15.0 [facility] Sodium [Moles/volume] in Ser um or PlasmaOrdered By: Demarcus Barahona on 08-11-2024 Sodium [Moles/Vol] Sodium [Moles/volume ] in Serum or Plasma 136-145 [facility] Specific gravity Test strip (U) [Rel density]Ordered By: Demarcus Barahona on 08-11-2024 Specific gravity (U) [Rel density] Specific gravity of Urine by Test strip 1.001-1.03 0 [facility] Urea nitrogen [Mass/volume] in Serum or PlasmaOrdered By: Demarcus Barahona on 08-11-2024 Urea nitrogen [Mass/Vol] Urea nitrogen [Mass/volume] in Serum or Plasma 7-25 [facility] Urine Cultureon 08-11-2024 Bacteria identified Cx Nom (U) ORGANISM: Escherichia coli (O:ESCCOL) Seaboard Count >100,000 Aerobic RODRIGO Charge (NMIC56) SUSCEPTIBILITY ORGANISM: O:ESCCOL ANTIBIOTIC INTERPRETATION RODRIGO Amikacin S <16 Amoxacillin/K Clavulanate S <8 Ampicillin R >16 Ampicillin/Sulbactam R >16 Aztreonam S <4 Cefazolin S 8 Cefepime S <2 Ceftazidime S <1 Ceftazidime/Avibactam S <4 Ceftolozane/Tazobactam S <2 Ceftriaxone S <1 Cefuroxime S <4 Ciprofloxacin R >2 Ertapenem S <0.5 Gentamicin S <2 Levofloxacin R >4 Meropenem S <1 Meropenem/Vaborbactam S <2 Nitrofurantoin S <32 Piperacillin/Tazobactam S <8 Tetracycline S <4 Tigecycline S <2 Tobramycin S <2 Trimethoprim/Sulfamethoxaz ole S <0.5 S = SUSCEPTIBLE I = INTERMEDIATE R = RESISTANT BLANK = DATA NOT AVAILABLE, OR DRUG NOT ADVISABLE OR TESTED R* = RESISTANCE DUE TO EXTENDED SPECTRUM BETA-LACTAMASES ESBL = EXTENDED SPECTRUM BETA-LACTAMASE TFG = THYMIDINE-DEPENDENT STRAIN LINDA = BETA-LACTAMASE POSITIVE IB = INDUCIBLE BETA-LACTAMASE. APPEARS IN PLACE OF 'S' WITH SPECIES KNOWN TO POSSESS INDUCIBLE BETA-LACTAMASES. POTENTIALLY THEY MAY BECOME RESISTANT TO ALL B-LACTAM DRUGS. PERFORMED BY: [facility] [address] [place] [id number] PATHOLOGIST BARNWORKER GROOM SERA BAIRD M.D. Normal [facility] Comment on above: Performed By: #### C UU, ADDONUAPLUS ####[facility] [id number] [place] [address] [facility] Urine cultureOrdered By: Gary Barahona on 08-11-2024 Bacteria identified Cx Nom (U) Escherichia coli Abnormal [facility] Urobilinogen Test strip (U) [Mass/Vol]Ordered By: Demarcus Barahona on 08-11-2024 Urobilinogen (U) [Mass/Vol] Urobilinogen [Mass/volume] in Urine by Test strip Normal [facility] WBC Auto (Bld) [#/Vol]Ordere d By: Demarcus Barahona on 08-11-2024 WBC (Bld) [#/Vol] Leukocytes [#/volume ] in Blood by Automated count 3.8-11.6 [facility] pH Test strip (U)Ordered By: Demarcus Barahona on 08-11-2024 pH (U) pH of Urine by Test strip 5.0-9.0 [facility] Office Visiton 07-03-2024 Follow-up visit [id number] Jeannette Porter 1945 F Date Provider Department Center 07/03/2024 [id number]-TAMIKOPIERCESTEVE SILVINAOscar CARD [facility] Family History Problem Relation Age of Onset Other Father Family Status - Relation Status Age at Father Level of Service:98155 [place] OFFICE/OUTPATIENT ESTABLISHED MOD MDM 30 MIN Normal [facility] BASIC METABOLIC PANEL 06-01 BUN/CREATININE RATIO SEE NOTE: Normal 6-22 [facility] Comment on above: Order Comment: FASTI NG:NO FASTING: NO Result Comment: Not Reported: BUN and Creatinine are within reference range. Performed By: #### 1 0165, 1759 #### [facility] [address], [address] [place] [address] Electrician Locomotive: Anthony Batista MD Calcium [Mass/Vol] 10.2 mg/dL Normal 8.6-10.4 [facility] Comment on above: Order Comment: FASTI NG:NO FASTING: NO Performed By: #### 1 0165, 1759 #### [facility] [address], [address] [place] [address] Electrician Locomotive: Anthony Batista MD Chloride [Moles/Vol] 105 mmol/L Normal 98-110 [facility] t [facility] Comment on above: Order Comment: FASTI NG:NO FASTING: NO Performed By: #### 1 0165, 1759 #### [facility] [place] [address] [employer]ocomotive: Anthony Batista MD CO2 [Moles/Vol] 24 mmol/L Normal 20-32 [facility] Comment on above: Order Comment: FASTI NG:NO FASTING: NO Performed By: #### 1 0165, 1759 #### [facility] [place] [address] Electrician Locomotive: Anthony Batista MD Creatinine [Mass/Vol] 0.69 mg/dL Normal 0.60-1.[address] [facility] Comment on above: Order Comment: FASTI NG:NO FASTING: NO Performed By: #### 1 0165, 1759 #### [facility] [address], [address] [place] [address] Electrician Locomotive: Anthony Batista MD GFR/1.73 sq M.predicted among non-blacks MDRD (S/P/Bld) [Vol rate/Area] 89 mL/min/{1.73_m2} Normal > OR = 60 [facility] Comment on above: Order Comment: FASTI NG:NO FASTING: NO Performed By: #### 1 0165, 1759 #### [facility] [place] [address] Electrician [employer]otive: Anthony Batista MD Glucose [Mass/Vol] 97 mg/dL Normal 65-139 [facility] Comment on above: Order Comment: FASTI NG:NO FASTING: NO Result Comment: Non-fasting reference interval Performed By: #### 1 0165, 1759 #### [facility] [place] [address] [employer]otive: Anthony Batsita MD Potassium [Moles/Vol] 4.5 mmol/L Normal 3.5-5.3 [facility] Comment on above: Order Comment: FASTI NG:NO FASTING: NO Performed By: #### 1 0165, 1759 #### [facility] [place] [address] [employer]: Anthony Batista MD Sodium [Moles/Vol] 137 mmol/L Normal 135-146 [facility] Comment on above: Order Comment: FASTI NG:NO FASTING: NO Performed By: #### 1 0165, 1759 #### [facility] [place] [address] [employer]: Anthony Batista MD Urea nitrogen [Mass/Vol] 23 mg/dL Normal 7-25 [facility] Comment on above: Order Comment: FASTI NG:NO FASTING: NO Performed By: #### 1 0165, 1759 #### [facility] [place] [address] [employer]: Anthony Batista MD CBC (H/H, RBC, INDICES, WBC, PLT)on 06-21-2024 Erythrocyte distribution width (RBC) [Ratio] 13.3 % Normal 11.0-15.0 [facility] Comment on above: Performed By: #### 1 0165, 1759 #### [facility] [place] [address] [employer]: Anthony Batista MD Hematocrit (Bld) [Volume fraction] 41.7 % Normal 35.0-45.0 [facility] Comment on above: Performed By: #### 1 0165, 175 #### [facility] [address], [address] [place] [address] [employer]: Anthony Batista MD Hemoglobin (Bld) [Mass/Vol] 13.7 g/dL Normal 11.7-15.5 [facility] Comment on above: Performed By: #### 1 0165, 175 #### [facility] [place] [address] [employer]: Anthony Batista MD MCH (RBC) [Entitic mass] 29.5 pg Normal 27.0-33.0 [facility] Comment on above: Performed By: #### 1 0165, 175 #### [facility] [place] [address] [employer]: Anthony Batista MD MCHC (RBC) [Mass/Vol] 32.9 g/dL Normal 32.0-36.0 [facility] Comment on above: Result Comment: For adults, a slight decrease in the calculated MCHC value (in the range of 30 to 32 g/dL) is most likely not clinically significant; however, it should be interpreted with caution in correlation with other red cell parameters and the patient's clinical condition. Performed By: #### 1 0165, 175 #### [facility] [place] [address] [employer]: Anthony Batista MD MCV (RBC) [Entitic vol] 89.9 fL Normal 80.0-100.0 [facility] Comment on above: Performed By: #### 1 0165, 175 #### [facility] of [address], [address] [place] [address] Electrician [employer]: Anthony Batista MD Platelet mean volume (Bld) [Entitic vol] 10.4 fL Normal 7.5-12.5 [facility] Comment on above: Performed By: #### 1 0165, 1759 #### [facility] of [address], [address] [place] [address] [employer]: Anthony Batista MD Platelets (Bld) [#/Vol] 453 10*3/uL High 140-400 [facility] Comment on above: Performed By: #### 1 0165, 1759 #### [facility] of [address], [address] [place] [address] Electrician [employer]: Anthony Batista MD RBC (Bld) [#/Vol] 4.64 10*6/uL Normal 3.80-5.10 [facility] Comment on above: Performed By: #### 1 0165, 1759 #### [facility] of [address], [address] [place] [address] [employer]: Anthony Batista MD WBC (Bld) [#/Vol] 6.2 10*3/uL Normal 3.8-10.8 [facility] Comment on above: Performed By: #### 1 0165, 1759 #### [facility] of [place] [address] [employer]: Anthony Batista MD A1C with Estimated Average Carmen browntyrell 06-08-2024 Glucose [Mass/Vol] 105 mg/dL Normal [facility] Comment on above: Result Comment: PERF ORMED BY: [facility] [address] [place] [address] PATHOLOGIST BARNWORKER GROOM SERA BAIRD M.D. Performed By: #### N ICOTINE #### [facility] , #### ALB, HGB, [id number], CUMRSA, A1C WTH eA #### [facility] [address] [place] [address] [place] HbA1c (Bld) [Mass fraction] 5.3 % Normal 4.3-5.6 [facility] Comment on above: Result Comment: Incr eased risk for diabetes: 5.7 - 6.4 diabetes: >6.4 glycemic control for adults with diabetes: <7.0 Performed By: #### N ICOTINE #### [facility] , #### ALB, HGB, [id number], CUMRSA, A1C WTH eA #### [facility] [address] Albumin Levelon 06-08-2024 Albumin [Mass/Vol] 4.2 g/dL Normal 3.5-5.7 [facility] Comment on above: Performed By: #### N ICOTINE #### [facility] , #### ALB, HGB, [id number], CUMRSA, A1C WTH eA #### [facility] [address] Albumin [Mass/volume] in Ser um or Plasma by Bromocresol green (BCG) dye binding methoOrdered By: Demarcus Barahona on 06-08-2024 Albumin BCG dye [Mass/Vol] Albumin [Mass/volume] in Serum or Plasma by Bromocresol green (BCG) dye binding metho 3.5-5.7 [facility] Blood estimated average gluc ose determination by estimation from glycated hemoglobinOrdered By: Demarcus Barahona on 06-08-2024 Average glucose Estimated from glycated hemoglobin (Bld) [Mass/Vol] Glucose mean value [Mass/volume] in Blood Estimated from glycated hemoglobin [facility] Cotinine [Mass/volume] in Se rum or PlasmaOrdered By: Demarcus Barahona on 06-08-2024 Cotinine [Mass/Vol] Cotinine [Mass/volum e] in Serum or Plasma . [facility] Comment on above: This test was develo ped and its performance characteristicsdetermined by [employer]. It has not been cleared orapproved by the Food and Drug Administration.Cotinine levels greater than 20.0 are consistent with theuse of tobacco or tobacco cessation products.Performed at: [address] [place], [place] [id number] Director: Leilani Hilliard MD, Phone: [phone] Hemoglobinon 06-08-2024 Hemoglobin (Bld) [Mass/Vol] 13.4 g/dL Normal 11.8-15.4 [facility] Comment on above: Result Comment: PERF ORMED BY: [address] [address] PATHOLOGIST BARNWORKER GROOM SERA BAIRD M.D. Performed By: #### N ICOTINE #### [facility] , #### ALB, HGB, [id number], CUMRSA, A1C WTH eA #### [facility] [address] [place] [address] Hemoglobin A1c/Hemoglobin.to dilma in BloodOrdered By: Demarcus Barahona on 06-08-2024 HbA1c (Bld) [Mass fraction] Hemoglobin A1c percentage 4.3-5.6 [facility] Comment on above: Increased risk for d iabetes: 5.7 - 6.4diabetes: >6.4glycemic control for adults with diabetes: <7.0 Hemoglobin [Mass/volume] in BloodOrdered By: Demarcus Barahona on 06-08-2024 Hemoglobin (Bld) [Mass/Vol] Hemoglobin [Mass/volume] in Blood 11.8-15.4 [facility] MRSA Cultureon 06-08-2024 MRSA Culture MRSA Culture Results No MRSA Isolated 2 Days PERFORMED BY: [address] [address] PATHOLOGIST BARNWORKER GROOM SERA BAIRD M.D. Normal [facility] Comment on above: Performed By: #### N ICOTINE #### [facility] , #### ALB, HGB, [id number], CUMRSA, A1C WTH eA #### [facility] [address] [place] [address] [place] Nicotine [Mass/volume] in Se rum or PlasmaOrdered By: Demarcus Barahona on 06-08-2024 Nicotine [Mass/Vol] Nicotine [Mass/volum e] in Serum or Plasma . [facility] Comment on above: This test was develo ped and its performance characteristicsdetermined by [facility]. It has not been cleared orapproved by the Food and Drug Administration.Nicotine levels greater than 2.0 are consistent with theuse of tobacco or tobacco cessation products. Nicotine/Cotinine Bloodon Cotinine, Blood <1.0 Normal . [facility] Comment on above: Result Comment: This test was developed and its performance characteristics determined by [facility]. It has not been cleared or approved by the Food and Drug Administration. Cotinine levels greater than 20.0 are consistent with the use of tobacco or tobacco cessation products. Performed at: [address] [id number] [employer] Representative: Leilani Hilliard MD, Phone: [phone] PERFORMED BY: [place] [address] PATHOLOGIST BARNWORKER GROOM SERA BAIRD M.D. Performed By: #### N ICOTINE #### [facility] , #### ALB, HGB, [id number], CUMRSA, A1C WT eA #### [facility] [address] Nicotine, Blood <1.0 Normal . [facility] Comment on above: Result Comment: This test was developed and its performance characteristics determined by [facility]. It has not been cleared or approved by the Food and Drug Administration. Nicotine levels greater than 2.0 are consistent with the use of tobacco or tobacco cessation products. Performed By: #### N ICOTINE #### [facility] , #### ALB, HGB, [id number], CUMRSA, A1C WT eA #### [facility] [address] [place] [address] [place] Vitamin D 25 Hydroxy Totalon 06-08-2024 Vitamin D 25 Hydroxy Total 59.2 ng/mL Normal 30-100 [facility] Comment on above: Result Comment: NALLELY MIN D STATUS 25(OH)VITAMIN D RANGE (ng/mL) Deficient <20 Insufficient 20 to <30 Sufficient 30 to 100 Reference: Baldemar Bennett, Domenic BENITEZ, et al. Evaluation,treatment, and prevention of vitamin D deficiency; an Endocrine Society clinical practice guideline. JCEM. 2010; 96(7):1911-. PERFORMED BY: [facility] [address] [place] [address] PATHOLOGIST BARNWORKER GROOM SERA BAIRD M.D. Performed By: #### N ICOTINE #### [facility] , #### ALB, HGB, [id number], CUMRSA, A1C WTH eA #### [facility] [address] Vitamin D+Metabolites [Mass/ volume] in Serum or PlasmaOrdered By: Demarcus Barahona on 06-08-2024 Vitamin D+Metabolites [Mass/Vol] Vitamin D+Metabolites [Mass/volume] in Serum or Plasma 30-100 [facility] Comment on above: VITAMIN D STATUS 25( OH)VITAMIN D RANGE (ng/mL) Deficient <20 Insufficient 20 to <30Sufficient 30 to 100Reference: Baldemar Bennett, Domenic BENITEZ, et al. Evaluation,treatment, and prevention of vitamin D deficiency; an Endocrine Society clinical practice guideline. JCEM. 2010; 96(7):1911-30. Wound methicillin resistant Staphylococcus aureus (MRSA) cultureOrdered By: Demarcus Barahona on 06-08-2024 MRSA isol Org specific cx Ql (Unsp spec) Wound methicillin resistant Staphylococcus aureus (MRSA) culture [facility] X-ray reportOrdered By: Buddy Bray on 06-08-2024 Study report [facility] [address] [place] [address] XRay Report Signed Patient: Jeannette Porter MR#: [id number] : 1945 Acct:[id number] Age/Sex: 79 / F ADM Date: 5 Loc: [facility] Room: Type: [facility] Attending Dr: Demarcus Barahona II, MD Copies to: Demarcus Barahona MD~ Ordering Provider: Demarcus Barahona MD Date of Service: 06/08/24 XR/XR pelvis 1-2V: M25.561 - Pain in right knee ([id number]) XR/XR knee BI 4V: M25.561 - Pain [...] of the hips. Moderatespurring left sacral joints. Czmhmzov-xv-wbuiem there are changes lower lumbar spine. Right knee: Severe lateral compartment degenerative changes. Fgsh-ph-jfscuxzq medial compartment degenerative changes. Moderate patellofemoral compartment degenerative changes. Left knee: Severe lateral compartment degenerative changes. Fvdw-qo-npkvsuzo medial compartment degenerative changes. Moderate patellofemoral compartment degenerative changes. XR/XR pelvis 1-2V IMPRESSION: NO ACUTE BONY FINDINGS. TRICOMPARTMENTAL DEGENERATIVE CHANGES OF THE BILATERAL KNEES AND DEGENERATIVE CHANGES OF THE HIPS AND PELVIS. Impression dictated by: Hang Bray M.D.06/08/2024 10:31 AM Dictation Location: [place] [address] Transcribed By: [facility] 06/08/24 1031 Dictated By: Hang Bray MD 06/08/24 1027 Signed By: 06/08/24 1031 [facility] Work Phone: XR knee BI 4Von 06-08-2024 XR knee BI 4V [facility] [address] [place] [address] XRay Report Signed Patient: Jeannette Porter MR#: [id number] : 1945 Acct:[id number] Age/Sex: 79 / F ADM Date: 06/08/24 Loc: [facility] Room: Type: [facility] Attending Dr: Demarcus Barahona II, MD Copies to: Demarcus Barahona MD Ordering Provider: Demarcus Barahona MD Date of Service: 06/08/24 XR/XR pelvis 1-2V: M25.561 - Pain in right knee ([id number]) XR/XR knee BI 4V: M25.561 - Pain [...] the hips. Moderate spurring left sacral joints. Awphogfd-og-txbyxx there are changes lower lumbar spine. Right knee: Severe lateral compartment degenerative changes. Kvcx-pj-vdvfdoqj medial compartment degenerative changes. Moderate patellofemoral compartment degenerative changes. Left knee: Severe lateral compartment degenerative changes. Ivwp-mx-davaflzp medial compartment degenerative changes. Moderate patellofemoral compartment degenerative changes. XR/XR pelvis 1-2V IMPRESSION: NO ACUTE BONY FINDINGS. TRICOMPARTMENTAL DEGENERATIVE CHANGES OF THE BILATERAL KNEES AND DEGENERATIVE CHANGES OF THE HIPS AND PELVIS. Impression dictated by: Hagn Bray M.D.06/08/2024 10:31 AM Dictation Location: [place] [address] Transcribed By: [facility] 06/08/24 1031 Dictated By: Hang Bray MD 06/08/24 1027 Signed By: 06/08/24 1031 Normal [facility] Ophthalmic OCT panelon 06-06 [facility] Left Eye Images reviewed and comparison made to baseline, Images reviewed. To assess optic nerve function and for use in future follow-up. Reliability: good and adequate. 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 Worsening. [facility] Radiology Study observation (narrative) [facility] Healthcare Office Visiton 02-28-2024 Follow-up visit [id number] Jeannette Porter 1945 F Date Provider Department Center 02/28/2024 3848-CONNER VALERIO Family History Problem Relation Age of Onset Other Father Family Status - Relation Status Age at Father Level of Service:48983 [place] OFFICE/OUTPATIENT ESTABLISHED LOW MDM 20 MIN Normal [facility] Urology Office/Clinic Noteon 01-19-2024 Urology Office/Clinic Note [...] exchange 07/20/23 - CaOx 50%, hydroxyapatite 50% CAHCHO 12/21/23 [facility] - Several R renal stones, [...] inactivated 04/07/2023 (more content not included)... Normal [facility] Comment on above: Result Comment: Elec tronically Signed By: Keerthi Trujillo MD\.br\Date and Time Signed: 01/19/24 11:07 EDT\.br\Electronically Co-Signed By: Carleen Truong\.br\Date and Time Co-Signed: 01/19/24 10:52 EDT Office Visiton 11-05-2023 Follow-up visit [id number] Jeannette Porter 1945 F Date Provider Department Center 11/05/2023 CONNER CAMPBELL Family History Problem Relation Age of Onset Other Father Family Status - Relation Status Age at Father Level of Service:02545 ND OFFICE/OUTPATIENT ESTABLISHED MOD MDM 30 MIN [facility] Office Visiton 09-13-2023 Follow-up visit [id number] Jeannette Porter 1945 F Date Provider Department Center 09/13/2023 CONNER CAMPBELL Family History Problem Relation Age of Onset Other Father Family Status - Relation Status Age at Father Level of Service:69103 ND OFFICE/OUTPATIENT ESTABLISHED MOD MDM 30 MIN [facility] Orders Onlyon 09-13-2023 Orders Only [id number] Jeannette Porter 1945 F Date Provider Department Center 09/13/2023 [facility] Family History Problem Relation Age of Onset Other Father Family Status - Relation Status Age at Father Normal [facility] CHEMISTRYOrdered By: SYSTEM SYSTEM on 07-15-2023 Anion gap [Moles/Vol] 13 mmol/L Normal 6 - 16 mEq/L [facility] Calcium [Mass/Vol] 10.4 mg/dL Normal 8.9 - 11. 1 mg/dL [facility] Chloride [Moles/Vol] 109 mmol/L Normal 101 - 1 11 mmol/L [facility] CO2 [Moles/Vol] 18 mmol/L Low 21 - 31 mmol/L [facility] Creatinine [Mass/Vol] 1.0 mg/dL Normal 0.5 - 1.3 mg/dL [facility] eGFR 58 mL/min/1.73 m2 Low >=59mL/min /1.73 m2 [facility] Glucose [Mass/Vol] 116 mg/dL [...] 35.5 s Normal 25.1 - 36.5 second(s) [facility] Auto [...] ranges were obtained from a study by jessica Navarrete. prepared from 1437 samples obtained at 7 different centers using the same coagulation reagent and instrumentation as [facility]. Currently there are no coagulation studies available worldwide for children to 14 days, and no normal ranges. Heparin therapeutic range (represented by Anti-Factor Xa activity of 0.2 - 0.4 U/mL) corresponds to PTT of 56.6 - 109.0 sec. INR Coag (PPP) [Relative time] 1.07 {INR} Invalid Interpretation Code [facility] Co[facility] Comment on above: Interpretive Data: I NR results are specifically intended to assess patients stabilized on long-term Anticoagulation therapy suggested INR s Less Intensive Anticoagulation 2.0 3.0 Conventional Range 3.0 4.5 PT Coag (PPP) [Time] 11.9 s Normal 9.4 - 1 2.5 second(s) [facility] Auto [...] the same coagulation reagent and instrumentation as [facility]. Currently there are no coagulation studies available worldwide for children to 14 days, and no normal ranges. HEMATOLOGYOrdered By: SYSTEM SYSTEM on 07-15-2023 Basophil [...] Normal 80.0 - 100.0 fL Remisol Heme [place] Absolute 0.5 E9/L Normal 0.2 - 1.0 [...] Normal 4.0 - 11.0 E9/L Remisol Heme URINALYSISOrdered By: Jairon Faye on 07-15-2023 Bacteria LM Ql (Urine sed) 3+ /HPF Invalid Interpretation Code Trace/HPF [facility] Auto SS Bilirubin Ql (U) Negative (07/15/23 4:18 PM) Normal Negative [facility] UA Auto SS Clarity (U) SL CLOUDY Invalid Interpretation Code FT UA Auto SS Color (U) Yellow (07/15/23 4:18 PM) Normal Yellow [facility] UA Auto SS Epithelial cells.squamous LM.HPF (Urine sed) [#/Area] 0-2 /HPF Normal 0-2/HPF [facility] Aut o SS Glucose Test strip (U) [Mass/Vol] Negative (07/15/23 4:18 PM) Normal Negative [facility] UA Auto SS Hemoglobin Ql (U) 3+ *ABN* (07/15/23 4:18 PM) Invalid Interpretation Code Negative [facility] UA Auto SS Ketones (U) [Mass/Vol] Negative (07/15/23 4:18 PM) Normal Negative [facility] UA Auto SS [place].plasma/[place] .RBC (Bld) [Mass ratio] >75 /HPF Invalid [...] [facility] UA Auto SS Urobilinogen Qn (U) [id number] {Starr'U}/dL Normal 0.0 - 1.0 EU/dL [facility] UA Auto SS WBC Auto Ql (U) 2+ *ABN* (07/15/23 4:18 PM) Invalid Interpretation Code Negative [facility] UA Auto SS WBC LM.HPF (Urine sed) [#/Area] /[HPF] Invalid Interpretation Code 0-5/HPF [facility] UA Auto SS Office Visiton 07-09-2023 Follow-up visit [id number] Jeannette Porter 1945 F Date Provider Department Center 07/09/2023 3848-CONNER VALERIO CARD [facility] No family history on file Level of Service:83627 ND OFFICE/OUTPATIENT ESTABLISHED MOD MDM 30 MIN Normal [facility] MG MAMM SCREEN 3D MARCOS CADon 08-24-2022 MG MAMM SCREEN 3D MARCOS CAD Patient: GERMAN JEANNETTE G. Exam Date: 08/24/2022 : 1945 Gender:F Ordering : DR ADARSH MANRIQUE M.D. Admission #: [id number] Family : Order #: [id number] CLICK HERE TO VIEW EXAM RADIOLOGY REPORT [...] mouth cancer at age 71. LOCATION: [facility] BREAST COMPOSITION: Heterogeneously dense,which may obscure small [...] M.D. on 08/24/2022 at 12:10 Normal [facility] Vital Signs Date Time Vital Sign Value Performing Clinician Facility 11-23-2024 09:45-0400 Body height 154.9 cm Adarsh Manrique MD Work Phone: [facility] 11-23-2024 09:45-0400 Body mass index (BMI) [Ratio] 30.61 kg/m2 Adarsh Manrique MD Work Phone: [facility] 11-23-2024 09:45-0400 Body weight 73.48 kg Adarsh Manrique MD Work Phone: [facility] 11-23-2024 09:45-0400 Diastolic blood pressure 76 mm[Hg] Adarsh Manrique MD Work Phone: [facility] Comment on above: 136 80 11-23-2024 09:45-0400 Heart rate 68 /min Adarsh Manrique MD Work Phone: [facility] 11-23-2024 09:45-0400 SaO2% (BldA) [Mass fraction] 96 % Adarsh Manrique MD Work Phone: [facility] 11-23-2024 09:45-0400 Systolic blood pressure 138 mm[Hg] Adarsh Manrique MD Work Phone: [facility] Comment on above: 136 80 08-31-2024 13:08-0400 Body temperature 97.6 [degF] Adarsh Manriuqe II Work Phone: [facility] 08-31-2024 13:08-0400 Diastolic blood pressure 72 mm[Hg] Adarsh Manrique II Work Phone: [facility] 08-31-2024 13:08-0400 Heart rate 61 /min Adarsh Manrique II Work Phone: [facility] 08-31-2024 13:08-0400 Respiratory rate 19 /min Adarsh Manrique II Work Phone: [facility] 08-31-2024 13:08-0400 SaO2% (BldA) [Mass fraction] 96 % Adarsh Manrique II Work Phone: [facility] 08-31-2024 13:08-0400 Systolic blood pressure 119 mm[Hg] Adarsh Manrique II Work Phone: [facility] 08-31-2024 06:00-0400 Body weight 83.9 kg Adarsh Manrique II Work Phone: [facility] 08-29-2024 12:30-0400 Inhaled oxygen flow rate 8 L/min Adarsh Manrique II Work Phone: [facility] 08-29-2024 08:32-0400 Body height 152.4 cm Adarsh Manrique II Work Phone: [facility] 07-27-2024 10:08-0500 Body height 154.9 cm Nolvia VILLALOBOS Work Phone: [facility] 07-27-2024 10:08-0500 Body mass index (BMI) [Ratio] 30.87 kg/m2 Nolvia Hemmer PA Work Phone: [facility] 07-27-2024 10:08-0500 Body weight 74.12 kg Nolvia Hemmer PA Work Phone: [facility] 07-27-2024 10:08-0500 Diastolic blood pressure 84 mm[Hg] Nolvia Hemmer PA Work Phone: [facility] 07-27-2024 10:08-0500 Heart rate 58 /min Nolvia Hemmer PA Work Phone: [facility] 07-27-2024 10:08-0500 Respiratory rate 16 /min Nolvia Hemmer PA Work Phone: [facility] 07-27-2024 10:08-0500 SaO2% (BldA) [Mass fraction] 97 % Nolvia Hemmer PA Work Phone: [facility] 07-27-2024 10:08-0500 Systolic blood pressure 136 mm[Hg] Nolvia Hemmer PA Work Phone: [facility] 06-20-2024 13:00-0500 Body height 154.9 cm Nolvia Hemmer PA Work Phone: [facility] 06-20-2024 13:00-0500 Body mass index (BMI) [Ratio] 30.76 kg/m2 Nolvia Hemmer PA Work Phone: [facility] 06-20-2024 13:00-0500 Body weight 73.85 kg Nolvia Hemmer PA Work Phone: [facility] 06-20-2024 13:00-0500 Diastolic blood pressure 76 mm[Hg] Nolvia Hemmer PA Work Phone: [facility] 06-20-2024 13:00-0500 Heart rate 63 /min Nolvia Hemmer PA Work Phone: [facility] 06-20-2024 13:00-0500 Respiratory rate 16 /min Nolvia Hemmer PA Work Phone: [facility] 06-20-2024 13:00-0500 SaO2% (BldA) [Mass fraction] 96 % Nolvia VILLALOBOS Work Phone: [facility] 06-20-2024 13:00-0500 Systolic blood pressure 132 mm[Hg] Nolvia VILLALOBOS Work Phone: [facility] 06-08-2024 09:35-0500 Body height 152.4 cm Adarsh Manrique II Work Phone: [facility] 06-08-2024 09:35-0500 Body mass index (BMI) [Ratio] 31.2 kg/m2 Adasrh Manrique II Work Phone: [facility] 06-08-2024 09:35-0500 Body weight 72.57 kg Adarsh Manrique II Work Phone: [facility] 03-13-2024 10:43-0400 Body height 154.9 cm Adarsh Manrique MD Work Phone: [facility] 03-13-2024 10:43-0400 Body mass index (BMI) [Ratio] 30.23 kg/m2 Adarsh Manrique MD Work Phone: [facility] 03-13-2024 10:43-0400 Body weight 72.58 kg Adarsh Manrique MD Work Phone: [facility] 03-13-2024 10:43-0400 Diastolic blood pressure 80 mm[Hg] Adarsh Manrique MD Work Phone: [facility] 03-13-2024 10:43-0400 Heart rate 76 /min Adarsh Manrique MD Work Phone: [facility] 03-13-2024 10:43-0400 SaO2% (BldA) [Mass fraction] 97 % Adarsh Manrique MD Work Phone: [facility] 03-13-2024 10:43-0400 Systolic blood pressure 132 mm[Hg] Adarsh Manrique MD Work Phone: [facility] 03-06-2024 10:28-0400 Body mass index (BMI) [Ratio] 30.31 kg/m2 Adarsh Manrique MD Work Phone: [facility] 03-06-2024 10:28-0400 Body weight 72.76 kg Adarsh Manrique MD Work Phone: [facility] 03-06-2024 10:28-0400 Diastolic blood pressure 90 mm[Hg] Adarsh Manrique MD Work Phone: [facility] 03-06-2024 10:28-0400 Heart rate 71 /min Adarsh Manrique MD Work Phone: [facility] 03-06-2024 10:28-0400 Respiratory rate 16 /min Adarsh Manrique MD Work Phone: [facility] 03-06-2024 10:28-0400 SaO2% (BldA) [Mass fraction] 97 % Adarsh Manrique MD Work Phone: [facility] 03-06-2024 10:28-0400 Systolic blood pressure 140 mm[Hg] Adarsh Manrique MD Work Phone: [facility] 02-14-2024 10:51-0400 Body height 154.9 cm Adarsh Manrique MD Work Phone: [facility] 02-14-2024 10:51-0400 Body mass index (BMI) [Ratio] 30.23 kg/m2 Adarsh Manrique MD Work Phone: [facility] 02-14-2024 10:51-0400 Body weight 72.58 kg Adarsh Manrique MD Work Phone: [facility] 02-14-2024 10:51-0400 Diastolic blood pressure 80 mm[Hg] Adarsh Manrique MD Work Phone: [facility] Comment on above: standing 134 84 02-14-2024 10:51-0400 Heart rate 79 /min Adarsh Manrique MD Work Phone: [facility] 02-14-2024 10:51-0400 SaO2% (BldA) [Mass fraction] 98 % Adarsh Manrique MD Work Phone: [facility] 02-14-2024 10:51-0400 Systolic blood pressure 138 mm[Hg] Adarsh Manrique MD Work Phone: [facility] Comment on above: standing 134 84 01-19-2024 10:17-0400 Diastolic blood pressure 48 mm[Hg] Keerthi Lue [facility] 01-19-2024 10:17-0400 Heart rate 73 /min Keerthi Lue [facility] 01-19-2024 10:17-0400 Respiratory rate 16 /min Keerthi Lue [facility] 01-19-2024 10:17-0400 Systolic blood pressure 128 mm[Hg] Keerthi Lue [facility] 07-20-2023 14:37-0500 Diastolic blood pressure 62 mm[Hg] Keerthi Lue [facility] 07-20-2023 14:37-0500 Systolic blood pressure 136 mm[Hg] Keerthi Lue [facility] 07-20-2023 14:36-0500 Heart rate 83 /min Keerthi Lue [facility] 07-20-2023 14:36-0500 SaO2% (BldA) [Mass fraction] 96 % Keerthi Lue [facility] 07-20-2023 14:36-0500 Diastolic blood pressure 80 mm[Hg] Keerthi Lue [facility] 07-20-2023 14:36-0500 Mean blood pressure 104 mm[Hg] Keerthi Lue [facility] 07-20-2023 14:36-0500 Systolic blood pressure 152 mm[Hg] Keerthi Lue [facility] 07-20-2023 14:35-0500 Respiratory rate 16 /min Keerthi Lue [facility] 07-20-2023 13:33-0500 Heart rate 77 /min Keerthi Lue [facility] 07-20-2023 13:33-0500 SaO2% (BldA) [Mass fraction] 93 % Keerthi Lue [facility] 07-20-2023 13:32-0500 Respiratory rate 16 /min Keerthi Lue [facility] 07-20-2023 13:31-0500 Diastolic blood pressure 66 mm[Hg] Keerthi Lue [facility] 07-20-2023 13:31-0500 Mean blood pressure 84 mm[Hg] Keerthi Lue [facility] 07-20-2023 13:31-0500 Systolic blood pressure 121 mm[Hg] Keerthi Lue [facility] 07-20-2023 13:27-0500 Body temperature 97.34 [degF] Keerthi Lue [facility] 07-20-2023 13:27-0500 Heart rate 72 /min Keerthi Lue [facility] 07-20-2023 13:27-0500 Mean blood pressure 80 mm[Hg] Keerthi Lue [facility] 07-20-2023 13:27-0500 Respiratory rate 16 /min Keerthi Lue [facility] 07-20-2023 13:27-0500 SaO2% (BldA) [Mass fraction] 94 % Keerthi Lue [facility] 07-20-2023 13:15-0500 Mean blood pressure 82 mm[Hg] Keerthi Lue [facility] 07-20-2023 13:15-0500 Respiratory rate 16 /min Keerthi Lue [facility] 07-20-2023 13:10-0500 Mean blood pressure 79 mm[Hg] Keerthi Lue [facility] 07-20-2023 13:10-0500 Respiratory rate 14 /min Keerthi Lue [facility] 07-20-2023 13:02-0500 Body temperature 97.16 [degF] Keerthi Lue [facility] 07-20-2023 12:55-0500 Respiratory rate 14 /min Keerthi Lue [facility] 07-20-2023 09:51-0500 Mean blood pressure 91 mm[Hg] Keerthi Lue [facility] 07-20-2023 09:49-0500 Body temperature 97.52 [degF] Keerthi Lue [facility] 07-15-2023 15:31-0500 Heart rate 65 /min Keerthi Lue [facility] 07-15-2023 15:31-0500 SaO2% (BldA) [Mass fraction] 96 % Keerthi Lue [facility] 07-15-2023 15:30-0500 Diastolic blood pressure 83 mm[Hg] Keerthi Lue [facility] 07-15-2023 15:30-0500 Mean blood pressure 100 mm[Hg] Keerthi Lue [facility] 02-15-2024 15:30-0500 Systolic blood pressure 136 mm[Hg] Keerthi Lue [facility] 06-23-2023 10:26-0500 Blood Pressure Location Keerthi Lue [facility] 06-23-2023 10:26-0500 Diastolic blood pressure 67 mm[Hg] Keerthi Lue [facility] 06-23-2023 10:26-0500 Heart rate 67 /min Keerthi Lue [facility] 06-23-2023 10:26-0500 Respiratory rate 16 /min Keerthi Lue [facility] 06-23-2023 10:26-0500 Systolic blood pressure 118 mm[Hg] Keerthi Lue [facility] Encounters Encounter Date Encounter Type Care Provider Facility Start: 02-21-2025 ambulatory Keerthi Caldwelle Facility:[facility] Start: 11-29-2024 End: 11-29-2024 ambulatory Adarsh Manrique II Work Phone: [facility] Work Phone: Start: 11-29-2024 End: 11-29-2024 Patient encounter procedure Demarcus Rojas MD -[facility] Work Phone: Start: 11-29-2024 End: 11-29-2024 Patient encounter procedure Demarcus Rojas MD -[facility] Start: 11-29-2024 End: 11-29-2024 ambulatory Adarsh Manrique II Work Phone: [facility] Work Phone: Start: 11-28-2024 End: 11-28-2024 Bamboo flowsheet Adeline Noguera PT [facility] Start: 11-28-2024 End: 11-28-2024 Bamboo flowsheet Adeline Noguera PT [facility] Start: 11-28-2024 End: 11-28-2024 ambulatory Adeline Noguera PT [facility] Comment on above: Vertigo (Primary Dx) Start: 11-24-2024 End: 11-24-2024 ambulatory Adeline Noguera PT [facility] Comment on above: Vertigo (Primary Dx) Start: 11-23-2024 End: 11-23-2024 Bamboo flowsheet Adarsh Manrique MD Work Phone: [facility] Start: 11-23-2024 End: 11-23-2024 Bamboo flowsheet Adarsh Manrique MD Work Phone: [facility] Start: 11-23-2024 End: 11-23-2024 Office outpatient visit 15 minutes Adarsh Manrique MD Work Phone: [facility] Comment on above: Vertigo (Primary Dx) Start: 11-23-2024 End: 11-23-2024 ambulatory ADARSH MANRIQUE Not Available Start: 10-18-2024 End: 10-18-2024 Patient encounter procedure Adarsh Manrique II Work Phone: [facility] Work Phone: Start: 10-18-2024 End: 10-18-2024 Patient encounter procedure Adarsh Manrique II Work Phone: [facility] Start: 10-18-2024 End: 10-18-2024 ambulatory Adarsh Manrique II Work Phone: [facility] Work Phone: Start: 10-02-2024 End: 10-02-2024 Bamboo flowsheet Elham Morfin DO Work Phone: [facility] Start: 10-02-2024 End: 10-02-2024 Bamboo flowsheet Elham Morfin DO Work Phone: [facility] Start: 10-02-2024 End: 10-02-2024 Refbayron Elham Morfin Work Phone: [facility] Comment on above: 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, mild stage (Primary Dx) Start: 09-14-2024 End: 09-14-2024 Patient encounter procedure Adarsh Manrique II Work Phone: [facility] Work Phone: Start: 08-29-2024 Non-patient / Non-visit Adarsh Manrique II Work Phone: [facility] Work Phone: Start: 08-29-2024 End: 08-31-2024 Admission to same day surgery center Adarsh Manrique II Work Phone: [facility] [place] Start: 08-29-2024 End: 08-31-2024 ambulatory Adarsh Manrique II Work Phone: [facility] Work Phone: Start: 08-18-2024 End: 08-18-2024 ambulatory Adarsh Manrique II Work Phone: [facility] Work Phone: Start: 08-18-2024 End: 08-18-2024 Patient encounter procedure Adarsh Manrique II Work Phone: [facility] Work Phone: Start: 08-17-2024 End: 08-17-2024 Discharged Recurring Adarsh Manrique II Work Phone: [facility] [place] Start: 08-17-2024 Registered Recurring Adarsh rodriguez II Work Phone: [facility] [place] Start: 08-17-2024 Encounter for other preprocedural examination Demarcus Barahona II [facility] Start: 08-17-2024 End: 08-17-2024 ambulatory Adarsh Manrique II Work Phone: [facility] Work Phone: Start: 08-17-2024 End: 08-17-2024 Patient encounter procedure Adarsh Manrique II Work Phone: [facility] Work Phone: Start: 08-17-2024 End: 08-17-2024 Patient encounter procedure Adarsh Manrique II Work Phone: [facility] [place] [facility] Start: 08-17-2024 End: 08-17-2024 ambulatory Adarsh Manrique II Work Phone: [facility] Work Phone: Start: 08-11-2024 End: 08-11-2024 Patient encounter procedure Adarsh Manrique II Work Phone: [facility] Work Phone: Start: 08-11-2024 End: 08-11-2024 ambulatory Adarsh Manrique II Work Phone: [facility] Work Phone: Start: 08-11-2024 Encounter for preprocedural laboratory examination Demarcus Barahona II [facility] Start: 07-27-2024 End: 07-27-2024 Bamboo flowsheet Nolvia VILLALOBOS Work Phone: [facility] Start: 07-27-2024 End: 07-27-2024 Bamboo flowsheet Nolvia VILLALOBOS Work Phone: [facility] Start: 07-27-2024 End: 07-27-2024 Patient encounter procedure Nolvia VILLALOBOS Work Phone: [facility] Comment on above: Medicare annual well ness visit, subsequent (Primary Dx); ACP (advance care [...] Not Available Start: 07-03-2024 End: 07-03-2024 ambulatory [facility] Start: 06-20-2024 End: 06-20-2024 Bamboo Fatigue Sciencehitesh VILLALOBOS Work Phone: [facility] Start: 06-20-2024 End: 06-20-2024 Bamboo flowsheet Nolvia Gomez PA Work Phone: [facility] Start: 06-20-2024 [...] Start: 06-08-2024 End: 06-08-2024 ambulatory Adarsh Manrique CHELSI Work Phone: [facility] Work Phone: Start: 06-08-2024 End: 06-08-2024 Patient encounter procedure Adarsh Manrique CHELSI Work Phone: [facility] Work Phone: Start: 06-06-2024 End: 06-06-2024 Bamboo flowsheet Elham Morfin DO Work Phone: [facility] Start: 06-06-2024 End: 06-06-2024 Bamboo flowsheet Elham Morfin DO Work Phone: [facility] Start: 06-06-2024 End: 06-06-2024 ambulatory ELHAM MORFIN Not Available Start: 03-13-2024 End: 03-13-2024 Bamboo flowsheet Adarsh Mnarique MD Work Phone: [facility] Start: [...] Not Available Start: 03-06-2024 End: 03-06-2024 Bamboo flowsheet Adarsh Manrique MD Work Phone: [facility] Start: 03-06-2024 End: 03-06-2024 Bamboo flowsheet Adarsh Manrique MD Work Phone: [facility] Start: 03-06-2024 End: 03-06-2024 Office outpatient visit 15 minutes Adarsh Manrique MD Work Phone: [facility] Comment on above: Migraine without aur a and without status migrainosus, not intractable (CMS/HCC) (Primary Dx); Primary hypertension (CMS/HCC); Flu vaccine need Start: 03-06-2024 End: 03-06-2024 ambulatory ADARSH MANRIQUE Not Available Start: 02-28-2024 End: 02-28-2024 ambulatory [facility] Start: 02-14-2024 End: 02-14-2024 UrbnDesignzheet Adarsh Manrique MD Work Phone: [facility] Start: 02-14-2024 End: 02-14-2024 UrbnDesignzheet Adarsh Manrique MD Work Phone: [facility] [...] Start: 01-19-2024 End: 01-19-2024 ambulatory Keerthi Trujillo Facility:[facility] Start: 01-19-2024 End: 01-19-2024 Patient encounter procedure Keerthi Trujillo [facility] Start: 12-22-2023 End: 12-22-2023 ambulatory ADARSH MANRIQUE Not Available Start: 11-05-2023 End: 11-05-2023 ambulatory [facility] Start: 09-13-2023 End: 09-13-2023 ambulatory [facility] Start: 07-20-2023 End: 07-20-2023 Admission to same day surgery center Keerthi RojasYina Trujillo [facility] Start: 07-15-2023 End: 07-15-2023 Patient encounter procedure Keerthi Trujillo [facility] Start: 07-09-2023 End: 07-09-2023 ambulatory [facility] Start: 06-23-2023 End: 06-23-2023 Patient encounter procedure Keerthi Caldwellanjelica [facility] Start: 08-24-2022 End: 08-25-[address] ADARSH MANRIQUE Facility:[facility] Procedures Date Procedure Procedure Detail Performing Clinician Start: 11-29-2024 Plain X-ray of left femur Adarsh Manrique II Work Phone: Start: 11-29-2024 Plain X-ray of left tibia and left fibula Adarsh Manrique II Work Phone: Start: 11-29-2024 X-ray of left knee, two views Adarsh Manrique II Work Phone: Start: 10-18-2024 X-ray of left knee, three views Adarsh Manrique II Work Phone: Start: 10-02-2024 Visual field xm uni/ bi w/interp extended exam Elham Morfin DO Work Phone: Start: 10-02-2024 End: 10-02-2024 [facility] xm&eval intermediate estab pt Primary open angle glaucoma (POAG) of left eye, mild stage Elham Morfin DO Work Phone: Comment on above: 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, mild stage (Primary Dx); Age-related nuclear cataract of left eye; Dry eyes; Eye globe prosthesis Start: 08-29-2024 Total replacement of left knee joint Adarsh Manrique II Work Phone: Start: 08-29-2024 X-ray of left knee, two views Adarsh Manrique II Work Phone: Start: 08-17-2024 Plain X-ray of left femur Adarsh Manrique II Work Phone: Start: 08-17-2024 Plain X-ray of left tibia and left fibula Adarsh Manrique II Work Phone: Start: 08-11-2024 Urine culture Adarsh rodriguez II Work Phone: Start: 06-08-2024 Methicillin resistan t Staphylococcus aureus culture Adarsh Manrique II Work Phone: Start: 06-08-2024 Plain radiography of pelvis Adarsh Manrique II Work Phone: Start: 06-08-2024 X-ray of both knees, four views Adarsh Manrique II Work Phone: Start: 06-06-2024 Computerized ophthal rodrigo imaging optic nerve Elham Morfin DO Work Phone: Start: 06-06-2024 End: 06-06-2024 [facility] medical xm&eval compre new pt 1/> vst [...] electrohydraulic lithotripsy of calculus of bladder Keerthi Ronnie Start: 06-15-2023 Cystoscopic insertio n of ureteric stent Keerthi Ronnie Start: 01-31-2021 Extracorporeal shock wave lithotripsy of calculus of kidney Keerthi Trujillo Biopsy of breast Keerthi Trujillo Colonoscopy Keerthi Trujillo Cystoscopy Keerthi Trujillo History of tonsillectomy Desirae Trujillo Lung cyst removal Keerthi Trujillo Plan of Treatment Date Care Activity Detail Author Start: 07-27-2025 Medicare Annual Well ness (AWV) Medicare Annual Wellness (AWV) [facility] Start: 02-05-2025 End: 02-05-2025 Patient encounter procedure 02/05/2025 2:15 PM EDT Office Visit [facility] [address] [place] [address] Elham Morfin, [address] [place] [address] [facility] Start: 01-31-2025 End: 01-31-2025 Patient encounter procedure 01/31/2025 10:00 AM EDT Office Visit [facility] [address] [facility] [address] [place] [address] Adarsh Manrique MD [address] [facility] [address] [place] [address] [facility] Start: 01-29-2025 Influenza vaccination Influenza Vacc ine (#1) [facility] Start: 11-29-2024 Plain X-ray of left femur XR femur L T 2V* [facility] Start: 11-29-2024 Plain X-ray of left tibia and left fibula XR tibia fibula LT 2V* [facility] Start: 11-29-2024 X-ray of left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 8 hours) a day as needed for nausea. Begin the night of surgery if necessary. ___X___ Tramadol (Ultram) 50mg tablet. Take 1 tablet by mouth every 6 hours as needed for pain. Do not take at the same time as oxycodone, MS Contin (morphine extended release), or Dilaudid (hydromorphone). Take with food. Begin the night of surgery. Take around the clock for 24 hours after surgeryand then utilize ifnecessary. ___X___ Oxycodone 5mg tablet. Take 1 tablet by mouth every 4 hours as needed forpain. If pain unrelenting 30 minutes after taking 1 tablet, then take another 1tablet. Do not take at the same time as MS Contin (morphine extended release), Dilaudid (hydromorphone), or Tramadol (Ultram). Take with food. Begin the night of surgery. Take around the clock for 24 hours after surgery and then utilize ifnecessary. MS Contin (morphine extended release) 15mg tablet. Take 1 tablet by mouth every 12 hours asneeded for BREAKTHROUGH pain only. If pain unrelenting 30 minutes after you have taken the second oxycodone 5mg tablet, then take 1 MS Contin tablet. Do not take at the same time as oxycodone or Tramadol (Ultram); this is a time-released medication and can only be taken once every 12 hours. Resume oxycodone at next scheduled time (4 hours after the MS Contin tablet). Begin the night of surgery ifnecessary. Dilaudid (hydromorphone) 2mg tablet. Take 1 tablet by mouth every 8 hours as needed for BREAKTHROUGH pain only. If pain unrelenting 30 minutes afteroxycodone, then take 1 Dilaudid tablet. Do not take at the same time as oxycodone or Tramadol (Ultram). Resume oxycodone at next scheduled time(4 hoursafter the Dilaudid tablet). Begin the night of surgery if necessary. Discharge Instructions: BE SURE YOU HAVE READ THE BOOKLET YOU RECEIVED IN THE OFFICE. Home Health: Home health is a valuable partner in the joint replacement process; they will beyour first step to your road of recovery. A therapist will see you the day afteryour surgery; they will be at your homebefore noon. They will see you the firstthree days after surgery and continue working with you until I see you in the office for your 2-week post-op appointment. * Follow their instructions. Exercises are to be done several times a day, including the days the therapist does not come to your house! Wound Care: Your surgical incision may be covered with a few different dressings. Your home health physical therapist will remove the gauze dressing the first day after surgery, but they will leave one of the following in place until you see me in the office. Zipline This is a no contact dressing that will stay in place until you are seen in the office for your 2-week post-op appointment. Do not place any ointments, creams, or lotions on your wound. Avoid gettingoutside on hot days; excessive sweating can increase the risk of wound infection. If there is drainage, place a gauze dressing over the wound, secure with paper tape, and call your therapist. A smallamount of drainage is expected. When you do bathe, allow soapy water to run over the dressing site,but do not scrub the incision or the dressing. Pat the dressing site dry with a towel after you shower. DO NOT take a bath, enter apool, mohamud/pond,or ocean until we discuss this at your post-op appointments. -X-c-h-a-c-e-l- -T-h-i-s- -i-s- -a- -y-v-i-n-w-w----i-z-s-i-z-t-n-a-t-e-d- -u-o-v-s-s-i-n-g- -w-i-t-h- -l-r-c-m-a-e-o-t-i-c- -l-s-j-m-a-n-t-i-e-s- -t-h-a-t- -w-i-l-l- -s-t-a-y- -i-n- -p-l-a-c-e- -u-n-t-i-l- -y-o-u- -a-r-e- -s-e-e-n- -i-n- -t-h-e- -f-r-b-i-c-e- -f-o-r- -y-o-u-r- -2----w-e-e-k- -d-q-x-t----o-p- -a-p- a-m-b-q-u-y-e-n-t-.- -D-o- -n-o-t- -p--l-a-c-e- -a-n-y- -v-o-o-a-l-m-n-t-s-,- -c-g-i-a-m-s-,- -o-r--j-a-u-i-o-n-s- -o-g-h-u-n-d- -y-o-u-r- -w-o-u-n-d- -o-r- -o-n- -t-h-e- -t-r-y-s-s-i-n-g-.- - - -A-v-o-i-d- -o-h-t-t-i-n-g- -r-b-b-s-i-d-e- -o-n- -h-o-t- -d-a-y-s-;- -e-r-y-u-j-z-i-v-e- -o-p-q-a-t-i-n-g- -c-a-n- -y-y-l-r-e-a-s-e- -t-h-e- -r-i-s-k- -o-f- -w-o-u-n-d- -g-k-m-e-b-d-i-o-n-.- -I-f- -t-h-e-r-e- -i-s- -d-l-f-i-n-a-g-e-,- -p-l-a-c--e- -a- -g-a-u-z-e- -f-w-r-s-s-i-n-g- -o-v-e-r- -t-h-e- -w-o-u-n-d-,- -y-v-w-u-r-e- -w-i-t-h- -p-a-p-e-r- -t-a-p-e-,- -a-n-d- -c-a-l-l- -y-o-u-r- -z-e-f-r-a-p- i-s-t-.- -A- -s-m-a-l-l- -y-q-e-u-n-t- -o-f- -v-f-p-i-n-a-g-e- -i-s- -y-x-w-e-c-t-e-d-.- -W-h-e-n- -y-o-u- -d-o- -b-a-t-h-e-,- -a-l-l-o-w- -s-o-a-p-y- -w-a-t-e-r- -t-o- -r-u-n- -o-v-e-r- -t-h-e- -f-d-e-s-s-i-n-g- -s-i-t-e-,- -b-u-t- -d-o- -n--o-t- -s-c-r-u-b- -t-h-e- -x-h-a-i-s-i-o-n- -o-r- -s-m-u--m-n-r-s-s-i-n-g-.- -P-a-t- -t-h-e- -c-f-k-s-s-i-n-g- -s-i-t-e- -d-r-y- -w-i-t-h- -a- -t-o-w-e-l- -a-f-t-e-r- -y-o-u- -z-s-v-w-e-r-.- -D-O- -N-O-T- -t-a-k-e- -a- -b-a-t-h-,- -e-n-t-e-r- -a- -p-o-o-l-,- -l-a-k-e- -p-o-n-d-,- -o-r- -o-c-e-a-n- -u-n-t-i-l- -w-e- -r-k-o-c-u-s-s- -t-h-i-s- -a-t- -y-o-u-r- -z-l-v-t----o-p- -o-g-m-z-w-i-y-q-u-n-t-s--.- Prevena This is a negative pressure wound therapy device with a collection container forany drainage. If this becomes completely full, call your therapist to discuss changing the collection container. This device also has a 14-day battery. Your home health physical therapist will remove the dressing 14 days after your surgery; it will be removed prior to your initial follow up appointment. Do not place any ointments, creams, or lotions around your wound or on the dressing. Avoid getting outside on hot days; excessive sweating can increasethe risk of wound infection. When you do bathe, allow soapy water to run over the dressing site, but do not scrub the device or the surrounding skin. DO NOT get the devicewet! Pat the dressing site dry with a towel after you shower. DO NOT take a bath, enter a pool, mohamud/pond, or ocean until we discuss this at your post-op appointments. What to expect: SWELLING: * Ice frequently, a minimum of 4 times a day for 20 minutes at a time for the first 2-3 weeks aftersurgery, especially after doing your exercises. * While icing, elevate your foot above the level of your heart with several pillows under your ankle. DO NOT put pillows under your knee. (KNEE REPLACEMENT ONLY) * Avoid prolonged periods of sitting over the first 7 to 10 days after surgery. We recommend that you not sit for more than 45 to 60 minutes at a time. You should get up and move around or lie down and elevate your leg. BRUISING: * You will have bruising to some degree; possibly the thigh, calf, ankle, foot, and in some cases the genitalia. Do not be alarmed. The bruising will eventually go away on its own as the body reabsorbs the blood. BLISTERS: * Some patients may develop blisters around the knee/hip and/or the incision. Although they can be alarming in appearance, they pose no significant risk to your joint replacement. * Leave the blisters alone and allow them to heal on their own. NUMBNESS: * Usually normal around the incision. * For knee replacements, the outside of the knee may be involved as well. The area of numbness may shrink over time or it could last forever. * For hip replacements, you may notice numbness on the outside of the thigh extending down the outside of the knee. The area of numbness may shrink over time or it could last forever. BENIGNO hose (stockinette): * Wear them for 4 weeks on the operative side and 2 weeks on the nonoperative side. * Try to wear these as 24 as possible to help decrease swelling. Weight Bearing, Walkers, and Canes: * Do not remove your knee immobilizer. Do not walk without this until your therapist has removed iteither on the first day after surgery or the second day after surgery. * Do not attempt to walk without your walker and your anesthesiologist and critical care until the therapist checks you the following day after surgery and gives you further instruction. * Typically, you will start out on a walker, then progress to a cane, and eventually walk without any device. Some of our patients do this within 2 weeks of surgery, while others can take 6 weeks. Pain Medications: * You may experience significant pain. Our goal is to make your pain manageable (not absent, since this is usually not realistic) and to allow you to progress with your therapy for your hip or knee. * Take your pain medication scheduled for the first 24 hours, then take it as needed. * Always take your pain medication with food to decrease nausea and vomiting. * Be sure to take stool softeners and/or laxatives as directed. * You may take yeso-daj-aszcdgk Benadryl if itching occurs without a rash or hives. * Icing and elevation will help relieve pain as well, do not underestimate the power of ice and elevation. We do recommend that you stop taking narcotic pain medications by 4-6 weeks after surgery and if necessary, continue to use anti-inflammatory medications such as Mobic (meloxicam), Celebrex (celecoxib), or an mugm-ucg-tsegrrq medication (Aleve, Motrin, Ibuprofen, etc). Driving an automobile: * You must be off all narcotic pain medications. * If your right leg is involved, that is your braking leg. Your physical therapist needs to help you determine that you can actively and firmly hit the brake and sustain it as this could be a life ordeath situation for you or someone else. * You will not be ?cleared? to drive by me or anyone else. It is up to you to know when you feel safe to drive. We do recommend utilizing an empty parking lot to practice and ensure you are able to slam on the brakes if necessary during an emergency. Low Grade Fever (less than 101?F): * Low-grade fevers can be treated, but make sure you do not exceed the daily limit of Tylenol. * The daily limit on Tylenol (acetaminophen) is 3000 mg in a 24-hour period. If you have procedures done after your joint replacement: * Dental procedures (including routine cleaning), prostate surgery, colonoscopy, and other invasiveprocedures could increase your risk for a total joint infection. * During a postoperative visit, be sure to discuss the use of prophylactic antibiotic therapy priorto and sometimes after these invasive procedures. * The decision to utilize antibiotics before and/or after these invasive procedures is a shared decision process between you and myself. Constipation: * If you develop constipation in spite of taking stool softeners and/or laxatives, follow the protocol below: * Day 2 of constipation if no results, use a Dulcolax suppository * Day 3 of constipation if no results, use a fleet?s enema. If no results by the afternoon, notify our office. Bladder Habits: * If you have difficulty urinating or are unable to urinate within 12 hours after arriving home following your surgery, please notify our office immediately. Expectations for Pain Relief after Joint Replacement: Patients predictably improve for up to a year after a hip or knee replacement. It is normal for youto still have some pain in your hip or knee for as much as 3 to 9 months after surgery. The pain relief will come, but you should not expect great relief of pain in less than this time. High demand activities (suchas going up and down stairs) frequently take 3 to 9 months before patients feel comfortable doing them. It is permissible to go up and down stairs whenever you can safely navigate them,but it will take much longer to do them normally and with great confidence. Questions or Problems: If you have any questions, problems, or confusion about your recovery after yourhip or knee replacement, please feel free to call our office at [phone]. You are a priority of ours and we will not be upset with you if you call. We would much rather you call to confirm aspects of your recovery process as opposed to possibly hindering your recovery with inappropriate care. We are committed to providing you with the best care possible. Demarcus Barahona II, MD Updated 06/21/23 Instructions: Know your Meds Prescriptions: Continued calcium carbonate-vitamin D3 [Oyster Shell Calcium-Vit D3] 500 mg(1,250mg) -200 unit Tablet 1 tab PO DAILY 30 Days Qty: 30 0RF cholecalciferol (vitamin D3) [Vitamin D3] 1,000 unit Tablet 1,000 unit PO DAILY 30 Days Qty: 30 0RF multivitamin [Daily Multi-Vitamin] Tablet 1 tab PO DAILY atorvastatin 40 mg Tablet 40 mg PO QAM omeprazole 20 mg Capsule,Delayed Release(Dr/Ec) 40 mg PO DAILY Vyzulta 0.024 % drops 1 drp ophthalmic (eye) QAM candesartan-hydrochlorothiazid 16-12.5 mg tablet 1 tab PO QAM sennosides-docusate sodium [Senokot-S] 8.6-50 mg tablet 2 tab PO daily 30 Days Qty: 60 0RF Rx Instructions: MED TO BED UPON DISCHARGE. DOS 08/29/24 polyethylene glycol 3350 [Miralax] 17 gram/dose powder 17 g PO daily 7 Days Qty: 7 0RF Rx Instructions: 1 packed mixed with 8 ounces of fluid. celecoxib 200 mg capsule 200 mg PO BID 30 Days Qty: 60 0RF Rx Instructions: MED TO BED UPON DISCHARGE. DOS 08/29/24 cefadroxil 500 mg capsule 500 mg PO Q12H 7 Days Qty: 14 0RF Rx Instructions: MED TO BED UPON DISCHARGE. DOS 08/29/24 acetaminophen 500 mg tablet 1,000 mg PO Q8H 30 Days Qty: 180 0RF Rx Instructions: MED TO BED UPON DISCHARGE. DOS 08/29/24 tramadol 50 mg tablet 50 mg PO q6h PRN (Reason: Pain) 7 Days Qty: 28 0RF Rx Instructions: MED TO BED UPON DISCHARGE. DOS 08/29/24 oxycodone 5 mg tablet 5 mg PO Q4H PRN (Reason: Pain) 7 Days Qty: 42 0RF Rx Instructions: MED TO BED UPON DISCHARGE. DOS 08/29/24 ondansetron HCl 4 mg tablet 4 mg PO Q8H PRN (Reason: Nausea) Qty: 9 0RF Rx Instructions: MED TO BED UPON DISCHARGE. DOS 08/29/24 aspirin 81 mg tablet,delayed release (DR/EC) 81 mg PO BID 35 Days Qty: 70 0RF Rx Instructions: MED TO BED UPON DISCHARGE. DOS 08/29/24 Held aspirin 81 mg Tablet,Delayed Release (Dr/Ec) 81 mg PO DAILY 30 Days Qty: 30 0RF Hold Instructions: Resume on 10/04/24. acetaminophen 500 mg Tablet 500 mg PO DIRECTED PRN (Reason: pain) Hold Instructions: Resume on 09/28/24. Follow Up: Demarcus Barahona II, MD [Active Staff] - 09/14/24 12:45 pm Exam Physical Exam Vital Signs: Temp Pulse Resp BP Pulse Ox O2 Del Method O2 Flow Rate 97.6 F 61 19 119/72 96 Room Air 8 08/31/24 13:08 08/31/24 13:08 08/31/24 13:08 08/31/24 13:08 08/31/24 13:08 08/31/24 13:08 08/29/24 12:30 Narrative: [Right, Left] knee immobilizer in place. Ice machine on and working. Prevena on and working; no drainage in container. Foot is warm and well perfused. Sensationintact to light touch. Wiggles their toes and ankle up/down. Nontender to palpation to calf. Diagnostic Studies Completed and Pending Studies Labs on day of discharge: 08/31/24 05:48: Corrected WBC 6.4, Uncorrected WBC Count 6.4, RBC 3.84, Hgb 11.6L, Hct 34.4, MCV 89.5, MCH 30.3, MCHC 33.8, RDW 14.4, Plt Count 323, MPV 8.3, Neut % (Auto) 53.2, Lymph % (Auto) 28.3, [place] % (Auto) 14.5, Eos % (Auto) 2.7, Baso % (Auto) 1.3, Nucleat RBC Rel Count 0.1, Neut # (Auto) 3.4, Lymph # (Auto) 1.8, [place] # (Auto) 0.9 H, Eos # (Auto) 0.2, Baso # (Auto) 0.1, PHA Creatinine Clear 55.68, Sodium 136, Potassium 4.1, Chloride 106, Carbon Dioxide 22.1, AnionGap 12.0, BUN 23, Creatinine 0.70, Est GFR (CKD-EPI) > 60.0, Glucose 88, Calcium8.9 Documented By: Demarcus Barahona MD 08/31/24 14 23 Signed By: 08/31/24 1424 [facility]04-03-2025 [place] [address] Hospitalist Progress Note Signed Patient: Jeannette Porter MR#: [id number] : 1945 Acct:[id number] Age/Sex: 79 / F Adm Date: 5 Loc: 4 Room: [address] [place] [address] Type: REG SDC Attending Dr: Demarcus Barahona II, MD Copies to: ~ Date of Service: 08/31/2024 Subjective Subjective Narrative: Seen and examined with family in room, Still reporting significant pain with ambulation, denies breath physical therapy coming back today to reevaluate her for acute inpatient. Remains on room air with SpO2 above 90%,. tolerating dietwell with no nausea vomiting, remains afebrile. Exam Physical Exam Vital Signs: Temp Pulse Resp BP Pulse Ox O2 Del Method O2 Flow Rate 97.7 F 65 16 133/73 97 Room Air 8 08/31/24 09:12 08/31/24 09:12 08/31/24 09:12 08/31/24 09:12 08/31/24 09:12 08/31/24 09:12 08/29/24 12:30 Narrative: CONST- Appears well -developed and well nourished No acute distress. CARDIAC?normal rate, regular rhythm, normal S1 & S2. PULM?diminished without wheeze or rhonchi, RA, no accessory muscle use or cough noted ABD ? Soft. Bowel sounds are normal. No distention No tenderness EXTREM?left leg tenderness SKIN?surgical dressing intact Objective Lab Results 08/31/24 05:48 08/31/24 05:48 Meds Allergies and Active Meds Allergies nitrofurantoin (From Portable Zood) Adverse Reaction (Verified 08/29/24 08:30) Gastrointestinal Upset oxycodone Adverse Reaction (Verified 08/30/24 13:50) Dizziness Active Meds: Active Medications Generic Name Dose Route Start Last Admin Trade Name Freq PRN Reason Stop Dose Admin Acetaminophen 1,000 mg 08/29/24 15:15 08/31/24 09:14 Acetaminophen 500 Mg Tablet PO 08/29/25 15:14 1,000 mg Q8H DIMPLE Administration Ascorbic Acid 500 mg 08/29/24 17:00 08/31/24 09:14 Ascorbic Acid 500 Mg Tablet PO 08/29/25 16:59 500 mg BID.WITH.MEALS DIMPLE Administration Aspirin 81 mg 08/29/24 21:00 08/30/24 21:15 Aspirin 81 Mg Tablet. PO 08/29/25 20:59 81 mg BID DIMPLE Administration Atorvastatin Calcium 40 mg 08/30/24 09:00 08/31/24 09:14 Atorvastatin 40 Mg Tablet PO 08/30/25 08:59 40 mg QAM DIMPLE Administration Cefadroxil 500 mg 08/30/24 09:00 08/31/24 09:14 Cefadroxil 500 Mg Capsule PO 09/05/24 21:01 500 mg BID DIMPLE Administration Celecoxib 200 mg 08/30/24 21:00 08/31/24 09:14 Celecoxib 200 Mg Capsule PO 09/29/24 09:01 200 mg BID DIMPLE Administration Diphenhydramine HCl 25 mg 08/29/24 15:06 Diphenhydramine 25 Mg Capsule PO 08/29/25 15:05 Q6H PRN Itching Ferrous Sulfate 324 mg 08/29/24 17:00 08/31/24 09:14 Ferrous Sulfate 324 Mg Tablet. PO 08/29/25 16:59 324 mg BID.WITH.MEALS DIMPLE Administration Lactated Ringer's 1,000 mls @ 75 mls/hr 08/29/24 15:45 08/31/24 07:39 Lactated Ringers IV 08/29/25 15:44 Not Given .[id number] DIMPLE Latanoprost 1 drops 08/30/24 09:00 08/30/24 08:53 Latanoprost 0.005% Op Soln 50 Drops/2.5 Ml Bottle EYE-LEFT 08/30/25 08:59 1drops QAM DIMPLE Administration Mineral Oil 1 each 09/01/24 15:06 Mineral Oil ([place]) 1 Each Enema ND ONCE PRN Constipation Morphine Sulfate 15 mg 08/29/24 15:06 Morphine Sulfate 12hr Er 15 Mg Tablet.Er PO Q12H PRN Pain Naloxone HCl 0.4 mg 08/29/24 15:06 Naloxone Hcl 0.4 Mg/Ml Vial IV-PUSH 08/29/25 15:05 Q2M PRN Opioid Reversal Ondansetron HCl 4 mg 08/29/24 14:32 08/29/24 15:07 Ondansetron 4 Mg/2 Ml Vial IV-PUSH 08/29/25 14:31 4 mg Q6H PRN Administration Nausea And Vomiting Ondansetron HCl 8 mg 08/29/24 15:06 Ondansetron Odt 4 Mg Tab.Rapdis PO 08/29/25 15:05 TID PRN Nausea Pantoprazole Sodium 40 mg 08/30/24 09:00 08/31/24 09:14 Pantoprazole 40 Mg Tablet.Dr PO 08/30/25 08:59 40 mg DAILY DIMPLE Administration Polyethylene Glycol 17 gm 08/30/24 09:00 08/31/24 09:14 Polyethylene Glycol 3350 17 Gm Powd.Pack PO 09/06/24 08:59 17 gm DAILY DIMPLE Administration Prochlorperazine Maleate 10 mg 08/29/24 15:06 08/29/24 18:15 Prochlorperazine Maleate 5 Mg Tablet PO 08/29/25 15:05 10 mg Q6H PRN Administration Nausea Scopolamine 1 each 08/29/24 17:45 08/29/24 18:11 Scopolamine 1 Mg/3 Days Patch TRANSDERML 08/29/25 17:44 1 each Q72H DIMPLE Administration Senna/Docusate Sodium 2 tab 08/30/24 09:00 08/31/24 09:14 Sennosides/Docusate 8.6-50mg 1 Tab Tablet PO 09/29/24 08:59 2 tab DAILY DIMPLE Administration Sodium Chloride 0 ml 08/29/24 08:18 Sodium Chloride 0.9 % 10 Ml Syringe IV-PUSH 08/29/25 08:17 PRN PRN Flush Sodium Chloride 0 ml 08/29/24 08:18 Sodium Chloride 0.9 % 10 Ml Syringe IV-PUSH 08/29/25 08:17 PRN PRN Flush Sodium Chloride 0 ml 08/29/24 22:00 08/31/24 06:06 Sodium Chloride 0.9 % 10 Ml Syringe IV-PUSH 08/29/25 21:59 10 ml QSHIFT DIMPLE Administration Temazepam 7.5 mg 08/29/24 15:06 08/31/24 00:05 Temazepam 7.5 Mg Capsule PO 02/25/25 15:05 7.5 mg QHS PRN Administration Insomnia Tramadol HCl 50 mg 08/29/24 15:06 08/31/24 04:21 Tramadol 50 Mg Tablet PO 02/25/25 15:05 50 mg Q6H PRN Administration Pain Scale 1 - 5 A&P - Hospitalist Assessment/Plan (1) Primary osteoarthritis of left knee: (2) Migraine: (3) Hyperlipidemia: (4) GERD (gastroesophageal reflux disease): Plan Hypertension - on Candesartan-HCTZ 16- 12.5mg , Blood pressure well-controlled continue Hyperlipidemia?on atorvastatin GERD? on omeprazole Left knee primary osteoarthritis * POD #2 status post left total knee arthroplasty today by Dr. Barahona * Continue plan of care per orthopedic team * Continue pain management as needed * PT/OT recommending home with home health versus SNF Documented By: Jazmin Ulrich APRN 08/31/24 1004 Signed By: 08/31/24 1100 08/31/24 1404 [facility]04-02-2025 Progress note Author Jazmin Ulrich [facility] Note Date/Time August 30, 2024 12:5 3pm [facility] [address] [place] [address] Hospitalist Progress Note Signed Patient: Jeannette Porter MR#: [id number] : 1945 Acct:[id number] Age/Sex: 79 / F Adm Date: 5 Loc: 4N Room: [address] [place] [address] Type: REG [facility] Attending Dr: Demarcus Barahona II, MD Copies to: ~ Date of Service: 08/30/2024 Subjective Subjective Narrative: Seen and examined with family in room, out of bed and sitting in chair. Still reporting significant pain with ambulation, however was able to tolerate ambulation with physical therapy. On room air with SpO2 above 90%, slightly bradycardic, asymptomatic. Tolerating diet well with no nausea vomiting, remains afebrile. Possibly discharging home today Exam Physical Exam Vital Signs: Temp Pulse Resp BP Pulse Ox O2 Del Method O2 Flow Rate 97.8 F 56 L 16 109/63 96 Room Air 8 08/30/24 08:00 08/30/24 08:00 08/30/24 08:00 08/30/24 08:00 08/30/24 08:00 08/30/24 08:00 08/29/24 12:30 Narrative: CONST- Appears well -developed and well nourished No acute distress. CARDIAC?normal rate, regular rhythm, normal S1 & S2. PULM?diminished without wheeze or rhonchi, RA, no accessory muscle use or cough noted ABD ? Soft. Bowel sounds are normal. No distention No tenderness EXTREM?left leg tenderness SKIN?surgical dressing intact Objective Lab Results 08/30/24 05:10 08/30/24 05:10 Meds Allergies and Active Meds Allergies nitrofurantoin (From [place]) Adverse Reaction (Verified 08/29/24 08:30) Gastrointestinal Upset Active Meds: Active Medications Generic Name Dose Route Start Last Admin Trade Name Samuelq PRN Reason Stop Dose Admin Acetaminophen 1,000 mg 08/29/24 15:15 08/30/24 08:52 Acetaminophen 500 Mg Tablet PO 08/29/25 15:14 1,000 mg Q8H DIMPLE Administration Ascorbic Acid 500 mg 08/29/24 17:00 08/30/24 08:52 Ascorbic Acid 500 Mg Tablet PO 08/29/25 16:59 500 mg BID.WITH.MEALS DIMPLE Administration Aspirin 81 mg 08/29/24 21:00 08/30/24 08:53 Aspirin 81 Mg Tablet. PO 08/29/25 20:59 81 mg BID DIMPLE Administration Atorvastatin Calcium 40 mg 08/30/24 09:00 08/30/24 08:53 Atorvastatin 40 Mg Tablet PO 08/30/25 08:59 40 mg QAM DIMPLE Administration Cefadroxil 500 mg 08/30/24 09:00 08/30/24 08:52 Cefadroxil 500 Mg Capsule PO 09/05/24 21:01 500 mg BID DIMPLE Administration Celecoxib 200 mg 08/30/24 21:00 Celecoxib 200 Mg Capsule PO 09/29/24 09:01 BID DIMPLE Diphenhydramine HCl 25 mg 08/29/24 15:06 Diphenhydramine 25 Mg Capsule PO 08/29/25 15:05 Q6H PRN Itching Ferrous Sulfate 324 mg 08/29/24 17:00 08/30/24 08:53 Ferrous Sulfate 324 Mg Tablet. PO 08/29/25 16:59 324 mg BID.WITH.MEALS DIMPLE Administration Lactated Ringer's 1,000 mls @ 75 mls/hr 08/29/24 15:45 08/30/24 07:11 Lactated Ringers IV 08/29/25 15:44 Not Given .[id number] DIMPLE Latanoprost 1 drops 08/30/24 09:00 08/30/24 08:53 Latanoprost 0.005% Op Soln 50 Drops/2.5 Ml Bottle EYE-LEFT 08/30/25 08:59 1drops QAM DIMPLE Administration Mineral Oil 1 each 09/01/24 15:06 Mineral Oil ([place]) 1 Each Enema ND ONCE PRN Constipation Morphine Sulfate 15 mg 08/29/24 15:06 Morphine Sulfate 12hr Er 15 Mg Tablet.Er PO Q12H PRN Pain Naloxone HCl 0.4 mg 08/29/24 15:06 Naloxone Hcl 0.4 Mg/Ml Vial IV-PUSH 08/29/25 15:05 Q2M PRN Opioid Reversal Ondansetron HCl 4 mg 08/29/24 14:32 08/29/24 15:07 Ondansetron 4 Mg/2 Ml Vial IV-PUSH 08/29/25 14:31 4 mg Q6H PRN Administration Nausea And Vomiting Ondansetron HCl 8 mg 08/29/24 15:06 Ondansetron Odt 4 Mg Tab.Rapdis PO 08/29/25 15:05 TID PRN Nausea Oxycodone HCl 5 mg 08/29/24 15:06 08/30/24 08:52 Oxycodone Ir 5 Mg Tablet PO 5 mg Q4HR PRN Administration Pain Scale 6 - 10 Pantoprazole Sodium 40 mg 08/30/24 09:00 08/30/24 08:53 Pantoprazole 40 Mg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 Unknown Comments:Office to call to schedule your follow up in 6 mths. Obtain renal US in 6 wks, office to call with results [facility]02-20-2024 Evaluation + Plan noteExtracted from: Title:EU - L URS, laser lith o, stone extraction, stent exchange Author:Keerthi Trujillo MD Date:07/20/23 Impression and Plan Diagnosis Kidney stones (YTR01-WN N20.0, Discharge, Medical). Ureteral stone ([id number]-EM N20.1, Working, Medical). Diagnosis Kidney stones ([id number]-SI N20.0, Discharge, Medical). Extracted from: Title:Home Basic PRE Author:Home Espinoza sicate ()Pola Date:07/20/23 Plan [place] [employer] (ASA) physical status classification: Class III. Anesthetic Preoperative Plan: Anesthesia General. Diagnostic Tests Pending * Calculi Analysis Urinary 07/20/23 [facility]02-09-2024 NoteCardiology Follow Up Progress Note Chief Complaint: [...] as needed Conner Valerio MD Interventional Cardiology [facility] Addendum 07/16/2023: Echocardiogram obtained and reviewed. Normal LVEF, no regional wall motion abnormalities. Patient does have a small pericardial effusion. This should not preclude her from having surgery. Given no symptoms and given ability to complete greater than 4 METS of activity, patient is moderate risk for surgery. She may proceed without additional cardiac testing (more content not included)...[facility]02-09-2024 NotePatient here for surgery clearance prior [...] Systems All other systems reviewed and are negative.[facility] 06-23-2023 Hospital Discharge instructions Patient Education [...] include: ?8 oz (237 mL) of milk, bxkuitr-nkaghtmckkaf-qiggr milk, and calcium- fortifiedfruit juice. Calcium-fortified means [...] ?Spinach (cooked), rhubarb, beets, sweet potatoes, and Kazakh chard. ?Peanuts. ?Potato chips, surinamese fries, and baked potatoes with skin on. ?Nuts and nut products. ?Chocolate. If you regularly take a diuretic medicine, make sure to eat at least 1 or 2 servings of fruits or vegetables that are high in potassium each day. These include: ?Avocado. ?Banana. ?[place], prune, carrot, or tomato juice. ?Baked potato. [...] magnesium, fish oil, or vitamin B6. Take jrkt-slf-nvacrll and prescription medicines only as told by [...] Casseroles. Pizza. Lasagna. Frozen meals. Potato chips. Malawian fries. The items listed above may not [...] provider. Document Revised: 08/27/2022 Document Reviewed: 08/27/2022 [employer] Patient Education 2022 [employer] Follow Up Care 06/16/2023 11:07:45 With:Ronnie JOHNS, Keerthi Myers, URL, URO Address: When: Unknown Comments:Schedule stone procedure [facility] discharge summary Author Demarcus Barahona [facility] Note Date/Time August 31, 2024 2:24 pm [facility] [address] [place] [id number] Discharge Summary Signed Patient: Jeannette Porter MR#: [id number] : 1945 Acct:[id number] Age/Sex: 79 / F Adm Date: 5 Loc: 4N Room: 4E9922-[address]: Demarcus Barahona II, MD Copies to: MD Demarcus Singleton II, MD~ Providers Date of Admission: 08/29/24 Date of Discharge: 08/31/24 Discharging Provider: Demarcus Barahona II Primary Care Provider: Adarsh Manrique Consults: 08/29/24 08:18 Consult to Physical Therapy Routine Comment: Physician Instructions: eval on surgical floor Consult to PT for:: Evaluation and Treat 08/29/24 15:06 Consult to Adult Hospitalist Routine Comment: Consulting Provider: Community Hospitalist (Adult) Reason For Exam: Medical Management Has Provider Been Notified: Yes Date of Notification: 08/29/24 Time of Notification: 15:13 Extended Comment: Medical Management: HLD, Cardiomyopathy, H/O Brain Bleed Consult to Occupational Therapy Routine Comment: Physician Instructions: Consult to OT for:: Evaluation and Treat Comment: WBAT Consult to Physical Therapy Routine Comment: Physician Instructions: Consult to PT for:: Evaluation and Treat Comment: WBAT 08/29/24 15:34 Consult to Occupational Therapy Routine Comment: Physician Instructions: Consult to OT for:: Evaluation and Treat Comment: WBAT Consult to Physical Therapy Routine Comment: Physician Instructions: Consult to PT for:: Evaluation and Treat Comment: WBAT Discharge Diagnosis (1) Primary osteoarthritis of left knee: (2) Migraine: (3) Hyperlipidemia: (4) GERD (gastroesophageal reflux disease): Final Diagnosis Final Discharge Diagnosis: Status post left total knee Summary Hospital Course Hospital course: Patient was admitted postoperatively after the above procedure. She did well onthe postsurgical floor. Her pain was well-controlled. She progressed with physical therapy to where she felt she was safe to go home and to do stairs. She was voiding without difficulty and tolerating a diet without difficulty. She was discharged home in stable condition with home health physical therapy Condition Condition at Discharge: Stable Status at Discharge Functional status at discharge: uses cane/walker Overall status at discharge: patient is progressing back to baseline Time Spent with Patient Time spent providing/coordinating discharge services (# min): 10 Surgeries and Procedures Operation Date: 08/29/24 10:00 Actual Procedures p OR Left Knee Arthroplasty, Total w/ Natalia(Left) - Demarcus Barahona II, MD Discharge Plan Discharge Plan Patient Disposition: Home Health [facility] [place] Additional Instructions: Joint Replacement Discharge Instructions Your safety during your recovery process is important to us. Please seek immediate emergency care if you have sudden chest pain or shortness of breath. Additionally, please call our office at [phone] should any of the followingoccur: wound bleeding or an increase in bleeding, increased swelling, redness around the incision, fever over 101?F, excessive vomiting, nosebleeds, or bloodystool. Discharge Medications (scheduled) indicated with an X: ___X___ Senokot-S 8.6-50mg tablet. Take 2 tablets by mouth daily for 30 days oras long as you are taking a narcotic pain medication (tramadol, oxycodone, or morphine). Begin the day of surgery. ____X____ Miralax 17g packet. Drink 1 packet mixed with 8 ounces of water dailyfor 7 days. Begin the morning after surgery. Begin your home anticoagulation medication, themorning after surgery. Take as prescribed like you were before surgery. ___X___ Ecotrin (coated aspirin) 81mg tablet by mouth twice daily for 35 days. Begin the morning after surgery. Protonix (pantoprazole) 20mg tablet by mouth daily for 35 days. Begin the morning after surgery. Xarelto (rivaroxaban) 10mg table by mouth daily for 35 days. Begin the morning after surgery. ___X___ Celebrex (celecoxib) 200mg tablet by mouth twice daily for 30 days. Takewith food. Begin the morning after surgery. ___X___ Duricef (cefadroxil) 500mg tablet by mouth twice daily for 7 days. Take with food. Begin the morning after surgery. Bactrim-DS (sulfamethoxazole & trimethoprim) 800mg-160mg tablet by mouthtwice daily for 7 days. Take with food. Begin the morning after surgery. Cleocin (clindamycin) 300mg tablet by mouth 3 times (every 8 hours) a day for 7 days. Take with food. Begin the morning after surgery. ___X___ Tylenol (acetaminophen) 500mg tablet. Take 2 tablets 3 times (every 8 hours) a day for 30 days. Begin the night of surgery if necessary. Prednisone 10mg tablet. Take 1 tablet daily for 10 days. Begin the morning after surgery. *If you have a patch behind your ear remove it the morning after surgery, discard, and thoroughly wash your hands. Discharge Medications (as needed) indicated with an X: ___X___ Zofran (Ondansetron) 4mg tablet by mouth 3 times (every 8 hours) a day as needed for nausea. Begin the night of surgery if necessary. ___X___ Tramadol (Ultram) 50mg tablet. Take 1 tablet by mouth every 6 hours as needed for pain. Do not take at the same time as oxycodone, MS Contin (morphine extended release), or Dilaudid (hydromorphone). Take with food. Begin the night of surgery. Take around the clock for 24 hours after surgery and then utilize ifnecessary. ___X___ Oxycodone 5mg tablet. Take 1 tablet by mouth every 4 hours as needed forpain. If pain unrelenting 30 minutes after taking 1 tablet, then take another 1tablet. Do not take at the same time as MS Contin (morphine extended release), Dilaudid (hydromorphone), or Tramadol (Ultram). Take with food. Begin the night of surgery. Take around the clock for 24 hours after surgery and then utilize ifnecessary. MS Contin (morphine extended release) 15mg tablet. Take 1 tablet by mouth every 12 hours as needed for BREAKTHROUGH pain only. If pain unrelenting 30 minutes after you have taken the second oxycodone 5mg tablet, then take 1 MS Contin tablet. Do not take at the same time as oxycodone or Tramadol (Ultram); this is a time-released medication and can only be taken once every 12 hours. Resume oxycodone at next scheduled time (4 hours after the MS Contin tablet). Begin the night of surgery if necessary. Dilaudid (hydromorphone) 2mg tablet. Take 1 tablet by mouth every 8 hours as needed for BREAKTHROUGH pain only. If pain unrelenting 30 minutes afteroxycodone, then take 1 Dilaudid tablet. Do not take at the same time as oxycodone or Tramadol (Ultram). Resume oxycodone at next scheduled time (4 hoursafter the Dilaudid tablet). Begin the night of surgery if necessary. Discharge Instructions: BE SURE YOU HAVE READ THE BOOKLET YOU RECEIVED IN THE OFFICE. Home Health: Home health is a valuable partner in the joint replacement process; they will beyour first step to your road of recovery. A therapist will see you the day afteryour surgery; they will be at your home before noon. They will see you the firstthree days after surgery and continue working with you until I see you in the office for your 2-week post-op appointment. * Follow their instructions. Exercises are to be done several times a day, including the days the therapist does not come to your house! Wound Care: Your surgical incision may be covered with a few different dressings. Your home health physical therapist will remove the gauze dressing the first day after surgery, but they will leave one of the following in place until you see me in the office. Zipline This is a no contact dressing that will stay in place until you are seen in the office for your 2-week post-op appointment. Do not place any ointments, creams, or lotions on your wound. Avoid getting outside on hot days; excessive sweating can increase the risk of wound infection. If there is drainage, place a gauze dressing over the wound, secure with paper tape, and call your therapist. A small amount of drainage is expected. When you do bathe, allow soapy water to run over the dressing site, but do not scrub the incision or the dressing. Pat the dressing site dry with a towel after you shower. DO NOT take a bath, enter apool, mohamud/pond,or ocean until we discuss this at your post-op appointments. -G-r-b-a-c-e-l- -T-h-i-s- -i-s- -a- -r-r-o-g-p-a----s-r-q-a-s-x-n-a-t-e-d- -y-a-l-s-s-i-n-g- -w-i-t-h- -b-a-q-b-n-i-o-t-i-c- -s-i-k-e-f-v-t-i-e-s- -t-h-a-t- -w-i-l-l- -s-t-a-y- -i-n- -p-l-a-c-e- -u-n-t-i-l- -y-o-u- -a-r-e- -s-e-e-n- -i-n- -t-h-e- -e-d-k-i-c-e- -f-o-r- -y-o-u-r- -2----w-e-e-k- -u-d-h-t----o-p- -n-g-r-r-l-i-t-m-e-n-t-.- -D-o- -n-o-t- -p--l-a-c-e- -a-n-y- -n-i-c-c-t-v-n-t-s-,- -b-u-y-a-m-s-,- -o-r- -w-t-s-i-o-n-s- -e-x-g-u-n-d- -y-o-u-r- -w-o-u-n-d- -o-r- -o-n- -t-h-e- -o-c-u-s-s-i-n-g-.- - - -A-v-o-i-d- -p-t-v-t-i-n-g- -r-v-j-s-i-d-e- -o-n- -h-o-t- -d-a-y-s-;- -e-z-b-h-i-t-i-v-e- -s-k-u-a-t-i-n-g- -c-a-n- -f-w-w-r-e-a-s-e- -t-h-e- -r-i-s-k- -o-f- -w-o-u-n-d- -a-x-s-j-f-r-i-o-n-.- -I-f- -t-h-e-r-e- -i-s- -n-n-j-i-n-a-g-e-,- -p-l-a-c--e- -a- -g-a-u-z-e- -v-s-x-s-s-i-n-g- -o-v-e-r- -t-h-e- -w-o-u-n-d-,- -o-e-t-u-r-e- -w-i-t-h- -p-a-p-e-r- -t-a-p-e-,- -a-n-d- -c-a-l-l- -y-o-u-r- -t-p-b-o-s-l-i-s-t-.- -A- -s-m-a-l-l- -f-n-b-u-n-t- -o-f- -i-w-p-i-n-a-g-e- -i-s- -t-n-j-e-c-t-e-d-.- -W-h-e-n- -y-o-u- -d-o- -b-a-t-h-e-,- -a-l-l-o-w- -s-o-a-p-y- -w-a-t-e-r- -t-o- -r-u-n- -o-v-e-r- -t-h-e- -j-g-n-s-s-i-n-g- -s-i-t-e-,- -b-u-t- -d-o- -n--o-t- -s-c-r-u-b- -t-h-e- -c-a-d-i-s-i-o-n- -o-r- -t-h-e- -o-i-r-s-s-i-n-g-.- -P-a-t- -t-h-e- -u-a-p-s-s-i-n-g- -s-i-t-e- -d-r-y- -w-i-t-h- -a- -t-o-w-e-l- -a-f-t-e-r- -y-o-u- -j-m-p-w-e-r-.- -D-O- -N-O-T- -t-a-k-e- -a- -b-a-t-h-,- -e-n-t-e-r- -a- -p-o-o-l-,- -l-a-k-e- -p-o-n-d-,- -o-r- -o-c-e-a-n- -u-n-t-i-l- -w-e- -z-m-h-c-u-s-s- -t-h-i-s- -a-t- -y-o-u-r- -h-f-s-t----o-p- -g-k-b-m-y-v-c-a-r-n-t-s--.- Prevena This is a negative pressure wound therapy device with a collection container forany drainage. If this becomes completely full, call your therapist to discuss changing the collection container. This device also has a 14-day battery. Your home health physical therapist will remove the dressing 14 days after your surgery; it will be removed prior to your initial follow up appointment. Do not place any ointments, creams, or lotions around your wound or on the dressing. Avoid getting outside on hot days; excessive sweating can increase the risk of wound infection. When you do bathe, allow soapy water to run over the dressing site, but do not scrub the device or the surrounding skin. DO NOT get the devicewet! Pat the dressing site dry with a towel after you shower. DO NOT take a bath, enter a pool, mohamud/pond, or ocean until we discuss this at your post-op appointments. What to expect: SWELLING: * Ice frequently, a minimum of 4 times a day for 20 minutes at a time for the first 2-3 weeks after surgery, especially after doing your exercises. * While icing, elevate your foot above the level of your heart with several pillows under your ankle. DO NOT put pillows under your knee. (KNEE REPLACEMENT ONLY) * Avoid prolonged periods of sitting over the first 7 to 10 days after surgery. We recommend that you not sit for more than 45 to 60 minutes at a time. You should get up and move around or lie down and elevate your leg. BRUISING: * You will have bruising to some degree; possibly the thigh, calf, ankle, foot, and in some cases the genitalia. Do not be alarmed. The bruising will eventually go away on its own as the body reabsorbs the blood. BLISTERS: * Some patients may develop blisters around the knee/hip and/or the incision. Although they can be alarming in appearance, they pose no significant risk to your joint replacement. * Leave the blisters alone and allow them to heal on their own. NUMBNESS: * Usually normal around the incision. * For knee replacements, the outside of the knee may be involved as well. The area of numbness may shrink over time or it could last forever. * For hip replacements, you may notice numbness on the outside of the thigh extending down the outside of the knee. The area of numbness may shrink over time or it could last forever. BENIGNO manning (stockinette): * Wear them for 4 weeks on the operative side and 2 weeks on the nonoperative side. * Try to wear these as 24/ as possible to help decrease swelling. Weight Bearing, Walkers, and Canes: * Do not remove your knee immobilizer. Do not walk without this until your therapist has removed it either on the first day after surgery or the second day after surgery. * Do not attempt to walk without your walker and your anesthesiologist and critical care until the therapist checks you the following day after surgery and gives you further instruction. * Typically, you will start out on a walker, then progress to a cane, and eventually walk without any device. Some of our patients do this within 2 weeks of surgery, while others can take 6 weeks. Pain Medications: * You may experience significant pain. Our goal is to make your pain manageable (not absent, since this is usually not realistic) and to allow you to progress with your therapy for your hip or knee. * Take your pain medication scheduled for the first 24 hours, then take it as needed. * Always take your pain medication with food to decrease nausea and vomiting. * Be sure to take stool softeners and/or laxatives as directed. * You may take kjkm-qch-nvddcva Benadryl if itching occurs without a rash or hives. * Icing and elevation will help relieve pain as well, do not underestimate the power of ice and elevation. We do recommend that you stop taking narcotic pain medications by 4-6 weeks after surgery and if necessary, continue to use anti-inflammatory medications such as Mobic (meloxicam), Celebrex (celecoxib), or an bjgz-znh-qjcnsvq medication (Aleve, Motrin, Ibuprofen, etc). Driving an automobile: * You must be off all narcotic pain medications. * If your right leg is involved, that is your braking leg. Your physical therapist needs to help you determine that you can actively and firmly hit the brake and sustain it as this could be a life or situation for you or someone else. * You will not be ?cleared? to drive by me or anyone else. It is up to you to know when you feel safe to drive. We do recommend utilizing an empty parking lot to practice and ensure you are able to slam on the brakes if necessary during an emergency. Low Grade Fever (less than 101?F): * Low-grade fevers can be treated, but make sure you do not exceed the daily limit of Tylenol. * The daily limit on Tylenol (acetaminophen) is 3000 mg in a 24-hour period. If you have procedures done after your joint replacement: * Dental procedures (including routine cleaning), prostate surgery, colonoscopy, and other invasive procedures could increase your risk for a total joint infection. * During a postoperative visit, be sure to discuss the use of prophylactic antibiotic therapy prior to and sometimes after these invasive procedures. * The decision to utilize antibiotics before and/or after these invasive procedures is a shared decision process between you and myself. Constipation: * If you develop constipation in spite of taking stool softeners and/or laxatives, follow the protocol below: * Day 2 of constipation if no results, use a Dulcolax suppository * Day 3 of constipation if no results, use a fleet?s enema. If no results by the afternoon, notify our office. Bladder Habits: * If you have difficulty urinating or are unable to urinate within 12 hours after arriving home following your surgery, please notify our office immediately. Expectations for Pain Relief after Joint Replacement: Patients predictably improve for up to a year after a hip or knee replacement. It is normal for you to still have some pain in your hip or knee for as much as 3 to 9 months after surgery. The pain relief will come, but you should not expect great relief of pain in less than this time. High demand activities (suchas going up and down stairs) frequently take 3 to 9 months before patients feel comfortable doing them. It is permissible to go up and down stairs whenever you can safely navigate them, but it will take much longer to do them normally and with great confidence. Questions or Problems: If you have any questions, problems, or confusion about your recovery after yourhip or knee replacement, please feel free to call our office at [phone]. You are a priority of ours and we will not be upset with you if you call. We would much rather you call to confirm aspects of your recovery process as opposed to possibly hindering your recovery with inappropriate care. We are committed to providing you with the best care possible. Demarcus Barahona II, MD Updated 06/21/23 Instructions: Know your Meds Prescriptions: Continued calcium carbonate-vitamin D3 [Oyster Shell Calcium-Vit D3] 500 mg(1,250mg) -200 unit Tablet 1 tab PO DAILY 30 Days Qty: 30 0RF cholecalciferol (vitamin D3) [Vitamin D3] 1,000 unit Tablet 1,000 unit PO DAILY 30 Days Qty: 30 0RF multivitamin [Daily Multi-Vitamin] Tablet 1 tab PO DAILY atorvastatin 40 mg Tablet 40 mg PO QAM omeprazole 20 mg Capsule,Delayed Release(Dr/Ec) 40 mg PO DAILY Vyzulta 0.024 % drops 1 drp ophthalmic (eye) QAM candesartan-hydrochlorothiazid 16-12.5 mg tablet 1 tab PO QAM sennosides-docusate sodium [Senokot-S] 8.6-50 mg tablet 2 tab PO daily 30 Days Qty: 60 0RF Rx Instructions: MED TO BED UPON DISCHARGE. DOS 08/29/24 polyethylene glycol 3350 [Miralax] 17 gram/dose powder 17 g PO daily 7 Days Qty: 7 0RF Rx Instructions: 1 packed mixed with 8 ounces of fluid. celecoxib 200 mg capsule 200 mg PO BID 30 Days Qty: 60 0RF Rx Instructions: MED TO BED UPON DISCHARGE. DOS 08/29/24 cefadroxil 500 mg capsule 500 mg PO Q12H 7 Days Qty: 14 0RF Rx Instructions: MED TO BED UPON DISCHARGE. DOS 08/29/24 acetaminophen 500 mg tablet 1,000 mg PO Q8H 30 Days Qty: 180 0RF Rx Instructions: MED TO BED UPON DISCHARGE. DOS 08/29/24 tramadol 50 mg tablet 50 mg PO q6h PRN (Reason: Pain) 7 Days Qty: 28 0RF Rx Instructions: MED TO BED UPON DISCHARGE. DOS 08/29/24 oxycodone 5 mg tablet 5 mg PO Q4H PRN (Reason: Pain) 7 Days Qty: 42 0RF Rx Instructions: MED TO BED UPON DISCHARGE. DOS 08/29/24 ondansetron HCl 4 mg tablet 4 mg PO Q8H PRN (Reason: Nausea) Qty: 9 0RF Rx Instructions: MED TO BED UPON DISCHARGE. DOS 08/29/24 aspirin 81 mg tablet,delayed release (DR/EC) 81 mg PO BID 35 Days Qty: 70 0RF Rx Instructions: MED TO BED UPON DISCHARGE. DOS 08/29/24 Held aspirin 81 mg Tablet,Delayed Release (Dr/Ec) 81 mg PO DAILY 30 Days Qty: 30 0RF Hold Instructions: Resume on 10/04/24. acetaminophen 500 mg Tablet 500 mg PO DIRECTED PRN (Reason: pain) Hold Instructions: Resume on 09/28/24. Follow Up: Demarcus Barahona II, MD [Active Staff] - 09/14/24 12:45 pm Exam Physical Exam Vital Signs: Temp Pulse Resp BP Pulse Ox O2 Del Method O2 Flow Rate 97.6 F 61 19 119/72 96 Room Air 8 08/31/24 13:08 08/31/24 13:08 08/31/24 13:08 08/31/24 13:08 08/31/24 13:08 08/31/24 13:08 08/29/24 12:30 Narrative: [Right, Left] knee immobilizer in place. Ice machine on and working. Prevena on and working; no drainage in container. Foot is warm and well perfused. Sensationintact to light touch. Wiggles their toes and ankle up/down. Nontender to palpation to calf. Diagnostic Studies Completed and Pending Studies Labs on day of discharge: 08/31/24 05:48: Corrected WBC 6.4, Uncorrected WBC Count 6.4, RBC 3.84, Hgb 11.6L, Hct 34.4, MCV 89.5, MCH 30.3, MCHC 33.8, RDW 14.4, Plt Count 323, MPV 8.3, Neut % (Auto) 53.2, Lymph % (Auto) 28.3, [place] % (Auto) 14.5, Eos % (Auto) 2.7, Baso % (Auto) 1.3, Nucleat RBC Rel Count 0.1, Neut # (Auto) 3.4, Lymph # (Auto) 1.8, [place] # (Auto) 0.9 H, Eos # (Auto) 0.2, Baso # (Auto) 0.1, PHA Creatinine Clear 55.68, Sodium 136, Potassium 4.1, Chloride 106, Carbon Dioxide 22.1, AnionGap 12.0, BUN 23, Creatinine 0.70, Est GFR (CKD-EPI) > 60.0, Glucose 88, Calcium8.9 Documented By: Demarcus Barahona MD 08/31/24 14 23 Signed By: <Electronically signed by Demarcus Barahona MD> 08/31/24 1424 [facility] Work Phone: Evaluation + Plan note No data available for this section [facility] evaluation + Plan note Future Appointments Appointment Date:07/20/2023 12:45:00 PM Scheduled Provider: Location:[facility] Appointment Type:Surgery FT Diagnostic Tests Pending * [facility] Future App[facility]ments Appointment Date:01/24/2025 09:45:00 AM Scheduled Provider:Keerthi Trujillo MD Location:[facility] Appointment Type:URO Office Visit [facility] evaluation noteNo assessment information available [facility] Work Phone: Evaluation note* Diagnosis Migraine [...] Calculus of kidney documented in this encounter [facility]* Diagnosis Migraine without aura and without status migrainosus, not intractable (CMS/HCC)- Primary Primary hypertension (CMS/HCC) Unspecified essential hypertension Personal history of kidney stones Personal history of urinary calculi documented in this encounter [facility]* Diagnosis Primary open angle glaucoma (POAG) of left eye, mild stage (CMS/HCC)- Primary Age-related nuclear cataract of left eye Dry eyes Unspecified tear film insufficiency Eye globe prosthesis Legal blindness, as defined in [place] documented in this encounter [facility]* Diagnosis Primary osteoarthritis of left knee- Primary Pre-operative examination Unspecified pre-operative examination Primary hypertension (CMS/HCC) Unspecified essential hypertension Chronic obstructive pulmonary disease, unspecified (CMS/HCC) Essential (hemorrhagic) thrombocythemia (CMS/HCC) History of primary malignant neoplasm of left lung documented in this encounter [facility]* Diagnosis Medicare annual wellness visit, [...] both inner ears documented in this encounter [facility] Healthcare[facility]* Diagnosis Onset Date Resolution Status Admit Date Primary osteoarthritis of le ft knee acute August 17, 2024 1:05pm [facility] Work Phone: Evaluation note* Diagnosis Primary open angle glaucoma (POAG) of left eye, mild stage- Primary documented in this encounter [facility] note* Diagnosis Primary open angle glaucoma (POAG) of left eye, mild stage- Primary Age-related nuclear cataract of left eye Dry eyes Unspecified tear film insufficiency Eye globe prosthesis documented in this encounter [facility] note* Diagnosis Vertigo- Primary Dizziness and giddiness documented in this encounter [facility] note* Diagnosis Vertigo- Primary Dizziness and giddiness [facility] No data available for this section [facility] Additional Instructions Joint Replacement Discharge Instructions Your safety during your recovery process is important to us. Please seek immediate emergency care if you have sudden chest pain or shortness of breath. Additionally, please call our office at [phone] should any of the following occur: wound bleeding or an increase in bleeding, increased swelling, redness around the incision, fever over 101 F, excessive vomiting, nosebleeds, or bloody stool. Discharge Medications (scheduled) indicated with an X: ___X___ Senokot-S 8.6-50mg tablet. Take 2 tablets by mouth daily for 30 days or as long as you are taking a narcotic pain medication (tramadol, oxycodone, or morphine). Begin the day of surgery. ____X____ Miralax 17g packet. Drink 1 packet mixed with 8 ounces of water daily for 7 days. Begin the morning after surgery. Begin your home anticoagulation medication, the morning after surgery. Take as prescribed like you were before surgery. ___X___ Ecotrin (coated aspirin) 81mg tablet by mouth twice daily for 35 days. Begin the morning after surgery. Protonix (pantoprazole) 20mg tablet by mouth daily for 35 days. Begin the morning after surgery. Xarelto (rivaroxaban) 10mg table by mouth daily for 35 days. Begin the morning after surgery. ___X___ Celebrex (celecoxib) 200mg tablet by mouth twice daily for 30 days. Take with food. Begin the morning after surgery. ___X___ Duricef (cefadroxil) 500mg tablet by mouth twice daily for 7 days. Take with food. Begin the morning after surgery. Bactrim-DS (sulfamethoxazole & trimethoprim) 800mg-160mg tablet by mouth twice daily for 7 days. Take with food. Begin the morning after surgery. Cleocin (clindamycin) 300mg tablet by mouth 3 times (every 8 hours) a day for 7 days. Take with food. Begin the morning after surgery. ___X___ Tylenol (acetaminophen) 500mg tablet. Take 2 tablets 3 times (every 8 hours) a day for 30 days. Begin the night of surgery if necessary. Prednisone 10mg tablet. Take 1 tablet daily for 10 days. Begin the morning after surgery. *If you have a patch behind your ear remove it the morning after surgery, discard, and thoroughly wash your hands. Discharge Medications (as needed) indicated with an X: ___X___ Zofran (Ondansetron) 4mg tablet by mouth 3 times (every 8 hours) a day as needed for nausea. Begin the night of surgery if necessary. ___X___ Tramadol (Ultram) 50mg tablet. Take 1 tablet by mouth every 6 hours as needed for pain. Do not take at the same time as oxycodone, MS Contin (morphine extended release), or Dilaudid (hydromorphone). Take with food. Begin the night of surgery. Take around the clock for 24 hours after surgery and then utilize if necessary. ___X___ Oxycodone 5mg tablet. Take 1 tablet by mouth every 4 hours as needed for pain. If pain unrelenting 30 minutes after taking 1 tablet, then take another 1 tablet. Do not take at the same time as MS Contin (morphine extended release), Dilaudid (hydromorphone), or Tramadol (Ultram). Take with food. Begin the night of surgery. Take around the clock for 24 hours after surgery and then utilize if necessary. MS Contin (morphine extended release) 15mg tablet. Take 1 tablet by mouth every 12 hours as needed for BREAKTHROUGH pain only. If pain unrelenting 30 minutes after you have taken the second oxycodone 5mg tablet, then take 1 MS Contin tablet. Do not take at the same time as oxycodone or Tramadol (Ultram); this is a time-released medication and can only be taken once every 12 hours. Resume oxycodone at next scheduled time (4 hours after the MS Contin tablet). Begin the night of surgery if necessary. Dilaudid (hydromorphone) 2mg tablet. Take 1 tablet by mouth every 8 hours as needed for BREAKTHROUGH pain only. If pain unrelenting 30 minutes after oxycodone, then take 1 Dilaudid tablet. Do not take at the same time as oxycodone or Tramadol (Ultram). Resume oxycodone at next scheduled time (4 hours after the Dilaudid tablet). Begin the night of surgery if necessary. Discharge Instructions: BE SURE YOU HAVE READ THE BOOKLET YOU RECEIVED IN THE OFFICE. Home Health: Home health is a valuable partner in the joint replacement process; they will be your first step to your road of recovery. A therapist will see you the day after your surgery; they will be at your home before noon. They will see you the first three days after surgery and continue working with you until I see you in the office for your 2-week post-op appointment. Follow their instructions. Exercises are to be done several times a day, including the days the therapist does not come to your house! Wound Care: Your surgical incision may be covered with a few different dressings. Your home health physical therapist will remove the gauze dressing the first day after surgery, but they will leave one of the following in place until you see me in the office. Zipline This is a no contact dressing that will stay in place until you are seen in the office for your 2-week post-op appointment. Do not place any ointments, creams, or lotions on your wound. Avoid getting outside on hot days; excessive sweating can increase the risk of wound infection. If there is drainage, place a gauze dressing over the wound, secure with paper tape, and call your therapist. A small amount of drainage is expected. When you do bathe, allow soapy water to run over the dressing site, but do not scrub the incision or the dressing. Pat the dressing site dry with a towel after you shower. DO NOT take a bath, enter a pool, mohamud/pond,or ocean until we discuss this at your post-op appointments. -H-d-x-a-c-e-l- - -T-h-i-s- -i-s- -a- -x-t-o-u-o-q---m-y-b-t-i-s-n-a-t-e-d- -w-p-d-s-s-i-n-g- -w-i-t-h- -u-t-f-u-t-w-o-t-i-c- -l-u-a-h-i-g-t-i-e-s- -t-h-a-t- -w-i-l-l- -s-t-a-y- -i-n- -p-l-a-c-e- -u-n-t-i-l- -y-o-u- -a-r-e- -s-e-e-n- -i-n- -t-h-e- -r-m-d-i-c-e- -f-o-r- -y-o-u-r- -2---w-e-e-k- -c-a-q-t---o-p- -r-t-q-m-d-l-t-m-e-n-t-.- -D-o- -n-o-t- -p-l-a-c-e- -a-n-y- -x-m-f-y-f-m-n-t-s-,- -m-o-g-a-m-s-,- -o-r- -t-r-h-i-o-n-s- -j-y-h-u-n-d- -y-o-u-r- -w-o-u-n-d- -o-r- -o-n- -t-h-e- -x-e-q-s-s-i-n-g-.- - -A-v-o-i-d- -x-x-e-t-i-n-g- -v-y-q-s-i-d-e- -o-n- -h-o-t- -d-a-y-s-;- -o-i-p-y-y-r-i-v-e- -u-j-v-a-t-i-n-g- -c-a-n- -z-k-g-r-e-a-s-e- -t-h-e- -r-i-s-k- -o-f- -w-o-u-n-d- -t-i-f-j-v-i-i-o-n-.- -I-f- -t-h-e-r-e- -i-s- -k-m-o-i-n-a-g-e-,- -p-l-a-c-e- -a- -g-a-u-z-e- -o-g-h-s-s-i-n-g- -o-v-e-r- -t-h-e- -w-o-u-n-d-,- -p-n-b-u-r-e- -w-i-t-h- -p-a-p-e-r- -t-a-p-e-,- -a-n-d- -c-a-l-l- -y-o-u-r- -u-h-s-e-s-r-i-s-t-.- -A- -s-m-a-l-l- -u-w-y-u-n-t- -o-f- -m-j-e-i-n-a-g-e- -i-s- -m-e-s-e-c-t-e-d-.- -W-h-e-n- -y-o-u- -d-o- -b-a-t-h-e-,- -a-l-l-o-w- -s-o-a-p-y- -w-a-t-e-r- -t-o- -r-u-n- -o-v-e-r- -t-h-e- -x-u-i-s-s-i-n-g- -s-i-t-e-,- -b-u-t- -d-o- -n-o-t- -s-c-r-u-b- -t-h-e- -r-v-w-i-s-i-o-n- -o-r- -t-h-e- -n-o-c-s-s-i-n-g-.- -P-a-t- -t-h-e- -d-x-v-s-s-i-n-g- -s-i-t-e- -d-r-y- -w-i-t-h- -a- -t-o-w-e-l- -a-f-t-e-r- -y-o-u- -n-u-y-w-e-r-.- -D-O- -N-O-T- -t-a-k-e- -a- -b-a-t-h-,- -e-n-t-e-r- -a- -p-o-o-l-,- -l-a-k-e- -p-o-n-d-,- -o-r- -o-c-e-a-n- -u-n-t-i-l- -w-e- -b-a-i-c-u-s-s- -t-h-i-s- -a-t- -y-o-u-r- -v-n-h-t---o-p- -n-k-m-n-a-g-a-q-f-n-t-s-.- Prevena This is a negative pressure wound therapy device with a collection container for any drainage. If this becomes completely full, call your therapist to discuss changing the collection container. This device also has a 14-day battery. Your home health physical therapist will remove the dressing 14 days after your surgery; it will be removed prior to your initial follow up appointment. Do not place any ointments, creams, or lotions around your wound or on the dressing. Avoid getting outside on hot days; excessive sweating can increase the risk of wound infection. When you do bathe, allow soapy water to run over the dressing site, but do not scrub the device or the surrounding skin. DO NOT get the device wet! Pat the dressing site dry with a towel after you shower. DO NOT take a bath, enter a pool, mohamud/pond, or ocean until we discuss this at your post-op appointments. What to expect: SWELLING: Ice frequently, a minimum of 4 times a day for 20 minutes at a time for the first 2-3 weeks after surgery, especially after doing your exercises. While icing, elevate your foot above the level of your heart with several pillows under your ankle. DO NOT put pillows under your knee. (KNEE REPLACEMENT ONLY) Avoid prolonged periods of sitting over the first 7 to 10 days after surgery. We recommend that you not sit for more than 45 to 60 minutes at a time. You should get up and move around or lie down and elevate your leg. BRUISING: You will have bruising to some degree; possibly the thigh, calf, ankle, foot, and in some cases the genitalia. Do not be alarmed. The bruising will eventually go away on its own as the body reabsorbs the blood. BLISTERS: Some patients may develop blisters around the knee/hip and/or the incision. Although they can be alarming in appearance, they pose no significant risk to your joint replacement. Leave the blisters alone and allow them to heal on their own. NUMBNESS: Usually normal around the incision. For knee replacements, the outside of the knee may be involved as well. The area of numbness may shrink over time or it could last forever. For hip replacements, you may notice numbness on the outside of the thigh extending down the outside of the knee. The area of numbness may shrink over time or it could last forever. BENIGNO hosanjelica (stockinette): Wear them for 4 weeks on the operative side and 2 weeks on the nonoperative side. Try to wear these as 24/ as possible to help decrease swelling. Weight Bearing, Walkers, and Canes: Do not remove your knee immobilizer. Do not walk without this until your therapist has removed it either on the first day after surgery or the second day after surgery. Do not attempt to walk without your walker and your anesthesiologist and critical care until the therapist checks you the following day after surgery and gives you further instruction. Typically, you will start out on a walker, then progress to a cane, and eventually walk without any device. Some of our patients do this within 2 weeks of surgery, while others can take 6 weeks. Pain Medications: You may experience significant pain. Our goal is to make your pain manageable (not absent, since this is usually not realistic) and to allow you to progress with your therapy for your hip or knee. Take your pain medication scheduled for the first 24 hours, then take it as needed. Always take your pain medication with food to decrease nausea and vomiting. Be sure to take stool softeners and/or laxatives as directed. You may take tnhe-kri-dfdsnlm Benadryl if itching occurs without a rash or hives. Icing and elevation will help relieve pain as well, do not underestimate the power of ice and elevation. We do recommend that you stop taking narcotic pain medications by 4-6 weeks after surgery and if necessary, continue to use anti-inflammatory medications such as Mobic (meloxicam), Celebrex (celecoxib), or an hgcb-jcz-vbfphbl medication (Aleve, Motrin, Ibuprofen, etc). Driving an automobile: You must be off all narcotic pain medications. If your right leg is involved, that is your braking leg. Your physical therapist needs to help you determine that you can actively and firmly hit the brake and sustain it as this could be a life or situation for you or someone else. You will not be cleared to drive by me or anyone else. It is up to you to know when you feel safe to drive. We do recommend utilizing an empty parking lot to practice and ensure you are able to slam on the brakes if necessary during an emergency. Low Grade Fever (less than 101 F): Low-grade fevers can be treated, but make sure you do not exceed the daily limit of Tylenol. The daily limit on Tylenol (acetaminophen) is 3000 mg in a 24-hour period. If you have procedures done after your joint replacement: Dental procedures (including routine cleaning), prostate surgery, colonoscopy, and other invasive procedures could increase your risk for a total joint infection. During a postoperative visit, be sure to discuss the use of prophylactic antibiotic therapy prior to and sometimes after these invasive procedures. The decision to utilize antibiotics before and/or after these invasive procedures is a shared decision process between you and myself. Constipation: If you develop constipation in spite of taking stool softeners and/or laxatives, follow the protocol below: Day 2 of constipation if no results, use a Dulcolax suppository Day 3 of constipation if no results, use a fleet s enema. If no results by the afternoon, notify our office. Bladder Habits: If you have difficulty urinating or are unable to urinate within 12 hours after arriving home following your surgery, please notify our office immediately. Expectations for Pain Relief after Joint Replacement: Patients predictably improve for up to a year after a hip or knee replacement. It is normal for you to still have some pain in your hip or knee for as much as 3 to 9 months after surgery. The pain relief will come, but you should not expect great relief of pain in less than this time. High demand activities (such as going up and down stairs) frequently take 3 to 9 months before patients feel comfortable doing them. It is permissible to go up and down stairs whenever you can safely navigate them, but it will take much longer to do them normally and with great confidence. Questions or Problems: If you have any questions, problems, or confusion about your recovery after your hip or knee replacement, please feel free to call our office at [phone]. You are a priority of ours and we will not be upset with you if you call. We would much rather you call to confirm aspects of your recovery process as opposed to possibly hindering your recovery with inappropriate care. We are committed to providing you with the best care possible. Demarcus Barahona II, MD Updated 06/21/23[facility] Work Phone: Progress note No data available for this section [facility] progress note Author Jazmin Ulrich [facility] Note Date/Time August 31, 2024 2:04 pm [facility] [address] [place] [address] Hospitalist Progress Note Signed Patient: Jeannette Porter MR#: [id number] : 1945 Acct:[id number] Age/Sex: 79 / F Adm Date: 5 Loc: 4N Room: 2Y2455-7 Type: REG [facility] Attending Dr: Demarcus Barahona II, MD Copies to: ~ Date of Service: 08/31/2024 Subjective Subjective Narrative: Seen and examined with family in room, Still reporting significant pain with ambulation, denies breath physical therapy coming back today to reevaluate her for acute inpatient. Remains on room air with SpO2 above 90%,. tolerating dietwell with no nausea vomiting, remains afebrile. Exam Physical Exam Vital Signs: Temp Pulse Resp BP Pulse Ox O2 Del Method O2 Flow Rate 97.7 F 65 16 133/73 97 Room Air 8 08/31/24 09:12 08/31/24 09:12 08/31/24 09:12 08/31/24 09:12 08/31/24 09:12 08/31/24 09:12 08/29/24 12:30 Narrative: CONST- Appears well -developed and well nourished No acute distress. CARDIAC?normal rate, regular rhythm, normal S1 & S2. PULM?diminished without wheeze or rhonchi, RA, no accessory muscle use or cough noted ABD ? Soft. Bowel sounds are normal. No distention No tenderness EXTREM?left leg tenderness SKIN?surgical dressing intact Objective Lab Results 08/31/24 05:48 08/31/24 05:48 Meds Allergies and Active Meds Allergies nitrofurantoin (From Viddyad) Adverse Reaction (Verified 08/29/24 08:30) Gastrointestinal Upset oxycodone Adverse Reaction (Verified 08/30/24 13:50) Dizziness Active Meds: Active Medications Generic Name Dose Route Start Last Admin Trade Name Freq PRN Reason Stop Dose Admin Acetaminophen 1,000 mg 08/29/24 15:15 08/31/24 09:14 Acetaminophen 500 Mg Tablet PO 08/29/25 15:14 1,000 mg Q8H DIMPLE Administration Ascorbic Acid 500 mg 08/29/24 17:00 08/31/24 09:14 Ascorbic Acid 500 Mg Tablet PO 08/29/25 16:59 500 mg BID.WITH.MEALS DIMPLE Administration Aspirin 81 mg 08/29/24 21:00 08/30/24 21:15 Aspirin 81 Mg Tablet.Dr PO 08/29/25 20:59 81 mg BID DIMPLE Administration Atorvastatin Calcium 40 mg 08/30/24 09:00 08/31/24 09:14 Atorvastatin 40 Mg Tablet PO 08/30/25 08:59 40 mg QAM DIMPLE Administration Cefadroxil 500 mg 08/30/24 09:00 08/31/24 09:14 Cefadroxil 500 Mg Capsule PO 09/05/24 21:01 500 mg BID DIMPLE Administration Celecoxib 200 mg 08/30/24 21:00 08/31/24 09:14 Celecoxib 200 Mg Capsule PO 09/29/24 09:01 200 mg BID DIMPLE Administration Diphenhydramine HCl 25 mg 08/29/24 15:06 Diphenhydramine 25 Mg Capsule PO 08/29/25 15:05 Q6H PRN Itching Ferrous Sulfate 324 mg 08/29/24 17:00 08/31/24 09:14 Ferrous Sulfate 324 Mg Tablet. PO 08/29/25 16:59 324 mg BID.WITH.MEALS DIMPLE Administration Lactated Ringer's 1,000 mls @ 75 mls/hr 08/29/24 15:45 08/31/24 07:39 Lactated Ringers IV 08/29/25 15:44 Not Given .[id number] DIMPLE Latanoprost 1 drops 08/30/24 09:00 08/30/24 08:53 Latanoprost 0.005% Op Soln 50 Drops/2.5 Ml Bottle EYE-LEFT 08/30/25 08:59 1drops QAM DIMPLE Administration Mineral Oil 1 each 09/01/24 15:06 Mineral Oil ([place]) 1 Each Enema ND ONCE PRN Constipation Morphine Sulfate 15 mg 08/29/24 15:06 Morphine Sulfate 12hr Er 15 Mg Tablet.Er PO Q12H PRN Pain Naloxone HCl 0.4 mg 08/29/24 15:06 Naloxone Hcl 0.4 Mg/Ml Vial IV-PUSH 08/29/25 15:05 Q2M PRN Opioid Reversal Ondansetron HCl 4 mg 08/29/24 14:32 08/29/24 15:07 Ondansetron 4 Mg/2 Ml Vial IV-PUSH 08/29/25 14:31 4 mg Q6H PRN Administration Nausea And Vomiting Ondansetron HCl 8 mg 08/29/24 15:06 Ondansetron Odt 4 Mg Tab.Rapdis PO 08/29/25 15:05 TID PRN Nausea Pantoprazole Sodium 40 mg 08/30/24 09:00 08/31/24 09:14 Pantoprazole 40 Mg Tablet. PO 08/30/25 08:59 40 mg DAILY DIMPLE Administration Polyethylene Glycol 17 gm 08/30/24 09:00 08/31/24 09:14 Polyethylene Glycol 3350 17 Gm Powd.Pack PO 09/06/24 08:59 17 gm DAILY DIMPLE Administration Prochlorperazine Maleate 10 mg 08/29/24 15:06 08/29/24 18:15 Prochlorperazine Maleate 5 Mg Tablet PO 08/29/25 15:05 10 mg Q6H PRN Administration Nausea Scopolamine 1 each 08/29/24 17:45 08/29/24 18:11 Scopolamine 1 Mg/3 Days Patch TRANSDERML 08/29/25 17:44 1 each Q72H DIMPLE Administration Senna/Docusate Sodium 2 tab 08/30/24 09:00 08/31/24 09:14 Sennosides/Docusate 8.6-50mg 1 Tab Tablet PO 09/29/24 08:59 2 tab DAILY DIMPLE Administration Sodium Chloride 0 ml 08/29/24 08:18 Sodium Chloride 0.9 % 10 Ml Syringe IV-PUSH 08/29/25 08:17 PRN PRN Flush Sodium Chloride 0 ml 08/29/24 08:18 Sodium Chloride 0.9 % 10 Ml Syringe IV-PUSH 08/29/25 08:17 PRN PRN Flush Sodium Chloride 0 ml 08/29/24 22:00 08/31/24 06:06 Sodium Chloride 0.9 % 10 Ml Syringe IV-PUSH 08/29/25 21:59 10 ml QSHIFT DIMPLE Administration Temazepam 7.5 mg 08/29/24 15:06 08/31/24 00:05 Temazepam 7.5 Mg Capsule PO 02/25/25 15:05 7.5 mg QHS PRN Administration Insomnia Tramadol HCl 50 mg 08/29/24 15:06 08/31/24 04:21 Tramadol 50 Mg Tablet PO 02/25/25 15:05 50 mg Q6H PRN Administration Pain Scale 1 - 5 A&P - Hospitalist Assessment/Plan (1) Primary osteoarthritis of left knee: (2) Migraine: (3) Hyperlipidemia: (4) GERD (gastroesophageal reflux disease): Plan Hypertension - on Candesartan-HCTZ 16- 12.5mg , Blood pressure well-controlled continue Hyperlipidemia?on atorvastatin GERD? on omeprazole Left knee primary osteoarthritis * POD #2 status post left total knee arthroplasty today by Dr. Barahona * Continue plan of care per orthopedic team * Continue pain management as needed * PT/OT recommending home with home health versus SNF Documented By: Jazmin Ulrich APRN 08/31/24 1004 Signed By: <Electronically signed by AG Ulrich> 08/31/24 1100 <Electronically signed by Roberto Ware MD> 08/31/24 1404 [facility] Work Phone: reason for referral (narrative)No reason for referral information available[facility] Work Phone: reason for visit Narrative* Rehabilitation - Outpatient (Routine) - Authorized Specialty Diagnoses / Procedures Referred By Contac t Referred To Contact Physical Therapy Diagnoses Vertigo Procedures ND OFFICE/OUTPATIENT NEW HIGH MDM 60 MINUTES Adarsh Manrique MD [address] [place] [id number] Phone: tel: fax: Adeline Noguera, MARIO Referral ID Status Reason Start Date Expiration Date Visits Requested Visits Authorized [id number] Authorized Specialty Services Required 11/24/2024 05/22/2025 10 10 [facility] HealthcareReason for visit Narrative* Rehabilitation - Outpatient (Routine) - Closed Specialty Diagnoses / Procedures Referred By Contac t Referred To Contact Physical Therapy Diagnoses Vertigo Procedures ND OFFICE/OUTPATIENT NEW HIGH MDM 60 MINUTES Adarsh Manrique MD [address] [place] [id number] Phone: tel: fax: Adeline Noguera, MARIO Referral ID Status Reason Start Date Expiration Date V isits Requested Visits Authorized [id number] Closed Specialty Services Required 11/24/2024 05/22/2025 10 [address] [facility] Summary Purpose Family History No Family History [...] neoplasm Unknown Unknown father Unknown mother Unknown Relationship Condition Age at Onset Recorded Date/T dianna father Type 2 diabetes mellitus Unknown Myocardial infarction Unknown Hypertension Unknown Unknown mother Type 2 diabetes mellitus Unknown Congestive heart failure Unknown Cerebrovascular accident (CVA) Unknown sister Malignant neoplasm of breast Unknown brother Malignant neoplasm of throat Unknown Cardiac disease Unknown brother Myocardial infarction Unknown brother Unknown Malignant neoplasm Unknown Advance Directives No Advanced Directives Records Found Advance Directive Response Recorded Date/ Time Advance Directives No June 09, 2017 9:39am Advance Directive Response Recorded Date/ Time Advance Directives No June 09, 2017 10:39am Reason for Referral Specialty Diagnoses / Procedures Referred By Contac t Referred To Contact Diagnoses Migraine without aura and without status migrainosus, not intractable (CMS/[facility]) Adarsh Manrique MD [address] [place] [address] Referral ID Status Reason Start Date Expiration Date V isits Requested Visits Authorized [id number] Pending Review 02/14/2024 08/12/2024 1 1 Chief Complaint and Reason for Visit Chief Complaint Admit Date NEW BILAT KNEE PAIN NX June 08, 2024 9:20am M25.561 - Pain in right knee May 9:22am Chief Complaint Admit Date NEW BILAT KNEE PAIN NX June 08, 2024 9:20am M25.561 - Pain in right knee/pst June 08, 2024 9:22am Chief Complaint Admit Date NEW BILAT KNEE PAIN NX June 08, 2024 9:20am M25.561 - Pain in right knee/pst June 08, 2024 9:22am Knee Pain August 11, 2024 9:0 2am Chief Complaint Admit Date NEW BILAT KNEE PAIN NX June 08, 2024 9:20am M25.561 - Pain in right knee/pst June 08, 2024 9:22am Knee Pain August 11, 2024 9:0 2am M17.12 - Unilateral primary osteoarthrit is, left k August 17, 2024 10:56am H&P LTKA-SDD August 17, 2024 1:0 5pm Reason for Visit Admit Date Primary osteoarthritis of left knee Chetan 2024 1:05pm Chief Complaint Admit Date NEW BILAT KNEE PAIN NX June 08, 2024 9:20am M25.561 - Pain in right knee/pst June 08, 2024 9:22am Knee Pain August 11, 2024 9:0 2am M17.12 - Unilateral primary osteoarthrit is, left k August 17, 2024 10:56am H&P LTKA-SDD August 17, 2024 1:0 5pm Pre-Op LTK August 17, 2024 1:5 2pm Chief Complaint Admit Date NEW BILAT KNEE PAIN NX June 08, 2024 9:20am M25.561 - Pain in right knee/pst June 08, 2024 9:22am Knee Pain August 11, 2024 9:0 2am M17.12 - Unilateral primary osteoarthrit is, left k August 17, 2024 10:56am H&P LTKA-SDD August 17, 2024 1:0 5pm Pre-Op LTK August 17, 2024 1:5 2pm Prolonged August 18, 2024 8:4 7am Chief Complaint Admit Date NEW BILAT KNEE PAIN NX June 08, 2024 9:20am M25.561 - Pain in right knee/pst June 08, 2024 9:22am Knee Pain August 11, 2024 9:0 2am M17.12 - Unilateral primary osteoarthrit is, left k August 17, 2024 10:56am H&P LTKA-SDD August 17, 2024 1:0 5pm Pre-Op LTK August 17, 2024 1:5 2pm Prolonged August 18, 2024 8:4 7am Knee Pain August 29, 2024 8:12 am Knee Pain August 29, 2024 3:37 pm Reason for Visit Admit Date Primary osteoarthritis of left knee Chetan 2024 1:05pm Primary osteoarthritis of left knee Apri l 2024 8:12am Status post total left knee replacement August 29, 2024 8:12am GERD (gastroesophageal reflux disease) A pril 2024 8:12am Hyperlipidemia August 29, 2024 8:12 am Migraine August 29, 2024 8:12 am Chief Complaint Admit Date Knee Pain August 11, 2024 9:0 2am M17.12 - Unilateral primary osteoarthrit is, left k August 17, 2024 10:56am H&P LTKA-SDD August 17, 2024 1:0 5pm Pre-Op LTK August 17, 2024 1:5 2pm Prolonged August 18, 2024 8:4 7am Knee Pain August 29, 2024 8:12 am Knee Pain August 29, 2024 3:37 pm 2 WK POST OP LTKA September 14, 2024 12: 38pm Reason for Visit Admit Date Primary osteoarthritis of left knee Chetan h 2024 1:05pm Primary osteoarthritis of left knee Apri l 2024 8:12am Status post total left knee replacement August 29, 2024 8:12am GERD (gastroesophageal reflux disease) A pri2024 8:12am Hyperlipidemia August 29, 2024 8:12 am Migraine August 29, 2024 8:12 am Status post total left knee replacement September 14, 2024 12:38pm Chief Complaint Admit Date Knee Pain August 11, 2024 9:0 2am M17.12 - Unilateral primary osteoarthrit is, left k August 17, 2024 10:56am H&P LTKA-SDD August 17, 2024 1:0 5pm Pre-Op LTK August 17, 2024 1:5 2pm Prolonged August 18, 2024 8:4 7am Knee Pain August 29, 2024 8:12 am Knee Pain August 29, 2024 3:37 pm 2 WK POST OP LTKA September 14, 2024 12: 38pm Z96.652 - Presence of left artificial kn ee joint October 18, 2024 9:29am 4 WK RECHECK LTKA October 18, 2024 11:07 am Reason for Visit Admit Date Primary osteoarthritis of left knee Chetan h 2024 1:05pm Primary osteoarthritis of left knee Apri l 2024 8:12am Status post total left knee replacement August 29, 2024 8:12am GERD (gastroesophageal reflux disease) A pri2024 8:12am Hyperlipidemia August 29, 2024 8:12 am Migraine August 29, 2024 8:12 am Status post total left knee replacement September 14, 2024 12:38pm Aftercare following left knee joint repl acement surgery October 18, 2024 11:07am Status post total left knee replacement October 18, 2024 11:07am Chief Complaint Admit Date 2 WK POST OP LTKA September 14, 2024 12: 38pm Z96.652 - Presence of left artificial kn ee joint October 18, 2024 9:29am 4 WK RECHECK LTKA October 18, 2024 11:07 am Z47.1 - Aftercare following joint replac ement surg [place] 2nd, 2025 7:43am 6 WEEKS November 29, 2024 1:35p m Reason for Visit Admit Date Status post total left knee replacement September 14, 2024 12:38pm Aftercare following left knee joint repl acement surgery October 18, 2024 11:07am Status post total left knee replacement October 18, 2024 11:07am Aftercare following left knee joint repl acement surgery November 29, 2024 1:35pm Reason for Visit Admit Date Status post total left knee replacement September 14, 2024 12:38pm Aftercare following left knee joint repl acement surgery October 18, 2024 11:07am Status post total left knee replacement October 18, 2024 11:07am Aftercare following left knee joint repl acement surgery November 29, 2024 1:35pm Status post total left knee replacement November 29, 2024 1:35pm Additional Source Comments INFORMATION SOURCE (unrecogn ized section and content) DATE CREATED AUTHOR 09/01/2022 [facility] DATE CREATED AUTHOR AUTHOR'S ORGANIZ ATION 06/22/2024 [facility] DATE CREATED AUTHOR AUTHOR'S ORGANIZ ATION 07/07/2024 [facility] DATE CREATED AUTHOR AUTHOR'S ORGANIZ ATION 11/30/2024 [facility] DATE CREATED AUTHOR AUTHOR'S ORGANIZ ATION 12/01/2024 [facility] DATE CREATED AUTHOR AUTHOR'S ORGANIZ ATION 01/14/2025 [facility] Goals (unrecognized section and content) Goals [...] team informatio n (unrecognized section and content) Manager Lighting Relationship Specialty Start Date End Date Adarsh Manrique MD [address] [place] [address] [address] [place] [address] PCP - General Internal Medicine 10/23/22 Adarsh Manrique MD [address] [place] [address] [place] [address] PCP - ACO Reach 10/22/22 Manager Lighting Relationship Specialty Start Date End Date Adarsh Manrique MD [address] [place] [address] [place] [address] PCP - General Internal Medicine 10/23/22 Adarsh Manrique MD [address] [place] [address] [place] [address] PCP - ACO Reach 10/22/22 Manager Lighting Relationship Specialty Start Date End Date Adarsh Manrique MD [address] [place] [address] [place] [address] PCP - General Internal Medicine 10/23/22 Adarsh Manrique MD [address] [place] [address] [place] [address] PCP - ACO Reach 10/22/22 Manager Lighting Relationship Specialty Start Date End Date Adarsh Manrique MD [address] [place] [address] [place] [address] PCP - General Internal Medicine 10/23/22 Adarsh Manrique MD [address] [place] [address] [place] [address] PCP - ACO Reach 10/22/22 Manager Lighting Relationship Specialty Start Date End Date Adarsh Manrique MD [address] [place] [address] [place] [address] PCP - General Internal Medicine 10/23/22 Adarsh Manrique MD [address] [place] [address] [place] [address] PCP - ACO Reach 10/22/22 Manager Lighting Relationship Specialty Start Date End Date Adarsh Manrique MD [address] [place] [address] [place] [address] PCP - General Internal Medicine 10/23/22 Adarsh Manrique MD [address] [place] [address] [place] [address] PCP - ACO Reach 10/22/22 Manager Lighting Relationship Specialty Start Date End Date Adarsh Manrique MD [address] [place] [address] [place] [address] PCP - General Internal Medicine 10/23/22 Adarsh Manrique MD [address] [place] [address] [place] [address] PCP - ACO Reach 10/22/22 Manager Lighting Relationship Specialty Start Date End Date Adarsh Manrique MD [address] [place] [address] [place] [address] PCP - General Internal Medicine 10/23/22 Adarsh Manrique MD [address] [place] [address] [place] [address] PCP - ACO Reach 10/22/22 Team Status: [...] Attending Provider Active Start: June 08, 2024 Manager Lighting Relationship Specialty Start Date End Date Adarsh Manrique MD [address] [place] [address] [place] [address] PCP - General Internal Medicine 10/23/22 Adarsh Manrique MD [address] [place] [address] [place] [address] PCP - ACO Reach 10/22/22 Manager Lighting Relationship Specialty Start Date End Date Adarsh Manrique MD [address] [place] [address] [place] [address] PCP - General Internal Medicine 10/23/22 Adarsh Manrique MD [address] [place] [address] [place] [address] PCP - ACO Reach 10/22/22 Manager Lighting Relationship Specialty Start Date End Date Adarsh Manrique MD [address] [place] [address] [place] [address] PCP - General Internal Medicine 10/23/22 Adarsh Manrique MD [address] [place] [address] [place] [address] PCP - ACO Reach 10/22/22 Manager Lighting Relationship Specialty Start Date End Date Adarsh Manrique MD [address] [place] [address] [place] [address] PCP - General Internal Medicine 10/23/22 Adarsh Manrique MD [address] [place] [address] [place] [address] PCP - ACO Reach 10/22/22 Team Status: Inactive Member Role Status Ana Manrique II MD Primary Care Provider Active Start: August 11, 2024 End: August 11, 2024 Demarcus Barahona II, MD Attending Provider Active Start: August 11, 2024 End: August 11, 2024 Team Status: Active Member Role Status Ana Manrique II MD Primary Care Provider Active Start: August 17, 2024 Demarcus Barahona II, MD Attending Provider Active Start: August 17, 2024 Team Status: Inactive Member Role Status Ana Manrique II MD Primary Care Provider Active Start: August 17, 2024 End: August 17, 2024 Demarcus Barahona II, MD Attending Provider Active Start: August 17, 2024 End: August 17, 2024 Team Status: Inactive Member Role Status Ana Manrique II MD Primary Care Provider Active Start: August 18, 2024 End: August 18, 2024 Demarcus Barahona II, MD Attending Provider Active Start: August 18, 2024 End: August 18, 2024 Team Status: Inactive Member Role Status Ana Manrique II MD Primary Care Provider Active Start: August 29, 2024 End: August 31, 2024 Demarcus Barahona II, MD Attending Provider Active Start: August 29, 2024 End: August 31, 2024 Ariadna Spear RN Other Provider Active Star t: August 29, 2024 End: August 31, 2024 Cristal Malloy RN Other Provider Active Start : August 29, 2024 End: August 31, 2024 Norma Earl RN Other Provider Active Star t: August 29, 2024 End: August 31, 2024 Janis Rondon RN Other Provider Active Start: A pril 2024 End: August 31, 2024 Selina Gallego RN Other Provider Active Start: Ap ril 2024 End: August 31, 2024 Suzette Carey RN Other Provider Active Start: A pril 2024 End: August 31, 2024 Fidelia Kruse MD Other Provider Active Start: August 29, 2024 End: August 31, 2024 Yani De Leno DO Other Provider Active Start : August 29, 2024 End: August 31, 2024 Adeel Singletary MD Other Provider Active Start : August 29, 2024 End: August 31, 2024 Jovani Callahan DO Other Provider Active Start: August 29, 2024 End: August 31, 2024 Vazquez Marvin MD Other Provider Active Start: August 29, 2024 End: August 31, 2024 Ivana Kelyl MD Other Provider Active Start : August 29, 2024 End: August 31, 2024 Jose Antony DO Other Provider Active St art: August 29, 2024 End: August 31, 2024 John Dorado MD Other Provider Active Start: A pril 2024 End: August 31, 2024 Nhi Graham APRN Other Provider Active Start: August 29, 2024 End: August 31, 2024 Rena Alexis MD Other Provider Active Start: August 29, 2024 End: August 31, 2024 José Luis Griffith MD Other Provider Active Start: A pril 2024 End: August 31, 2024 Estefani De La Cruz MD Other Provider Active Start: August 29, 2024 End: August 31, 2024 Dennys Montesinos MD Other Provider Active Start: August 29, 2024 End: August 31, 2024 Jose Mcclain DO Other Provider Active Start: August 29, 2024 End: August 31, 2024 Ted Ontiveros MD Other Provider Active Start: Ap ril 2024 End: August 31, 2024 Bora Severino MD Other Provider Active Start: Aug End: August 31, 2024 Lauren Soto NP-C Other Provider Active St art: August 29, 2024 End: August 31, 2024 Wade Rose APRN Other Provider Active Star t: August 29, 2024 End: August 31, 2024 Serjio Garsia MD Other Provider Active Start: August 29, 2024 End: August 31, 2024 Alex Maloney MD Other Provider Active Start: Ap ril 2024 End: August 31, 2024 Abraham Ramirez MD Other Provider Active Start: Aug il 2024 End: August 31, 2024 Terrie Vicente MD Other Provider Active Star t: August 29, 2024 End: August 31, 2024 Robinson Hall MD Other Provider Active Start: A pril 2024 End: August 31, 2024 Tomeka Vuong , Other Provider Active Start: Ap ril 2024 End: August 31, 2024 Chivo Ordaz , Other Provider Active Start : August 29, 2024 End: August 31, 2024 Jazmin Ulrich APRN Other Provider Active Start: August 29, 2024 End: August 31, 2024 Otilio Umanzor , Other Provider Active Start: August 29, 2024 End: August 31, 2024 Roberto Ware MD Other Provider Active Sta rt: August 29, 2024 End: August 31, 2024 Dariela Hernández APRN Other Provider Active Start : August 29, 2024 End: August 31, 2024 Sangita Zamora APRN Other Provider Active St art: August 29, 2024 End: August 31, 2024 Dahiana Nielson MD Other Provider Active Start: A pril 2024 End: August 31, 2024 Adarsh New MD Other Provider Active S tart: August 29, 2024 End: August 31, 2024 Bro Banerjee , Other Provider Active Star t: August 29, 2024 End: August 31, 2024 Felix Smith DO Other Provider Active Start: August 29, 2024 End: August 31, 2024 Flavio Ramirez MD Other Provider Active Start: August 29, 2024 End: August 31, 2024 Susana Montgomery MD Other Provider Active Start: August 29, 2024 End: August 31, 2024 Selma Momin APRN Other Provider Active Star t: August 29, 2024 End: August 31, 2024 Conner Aldana MD Other Provider Active Start: A pril 2024 End: August 31, 2024 Brian Patel MD Other Provider Active Start: Ap ril 2024 End: August 31, 2024 Devon Johnson MD Other Provider Active Start: August 29, 2024 End: August 31, 2024 John Mckeon MD Other Provider Active Start : August 29, 2024 End: August 31, 2024 Scotty Dill MD Other Provider Active Start: A pril 2024 End: August 31, 2024 Felisa Saxena APRN Other Provider Active Sta rt: August 29, 2024 End: August 31, 2024 Davido Agustin-Iveth , MACHINE ADJUSTER LEADER CASE TRIM Other Provider Active Start: August 29, 2024 End: August 31, 2024 Shelby Soto RN Other Provider Active Start: A pri2024 End: August 31, 2024 Team Status: Active Member Role Status Dates Adarsh Manrique II MD Primary Care Provider Active Start: August 29, 2024 Demarcus Barahona II, MD Attending [facility], Other Provider Active Start: August 29, 2024 Conner Aldana MD Other Provider Active Start: A 2024 Dahiana Nielson MD Other Provider Active Start: A 2024 Terrie Vicente MD Other Provider Active Star t: August 29, 2024 Devon Johnson MD Other Provider Active Start: August 29, 2024 Sami Velez-Iveth , MACHINE ADJUSTER LEADER CASE TRIM Other Provider Active Start: August 29 Selma Momin APRN Other Provider Active Star t: August 29, 2024 Shelby Soto RN Other Provider Active Start: A 2024 John Mckeon MD Other Provider Active Start : August 29, 2024 Bro Banerjee DO Other Provider Active Star t: August 29, 2024 Roberto Ware MD Other Provider Active Sta rt: August 29, 2024 Susana Montgomery MD Other Provider Active Start: August 29 Norma Earl RN Other Provider Active Star t: August 29, 2024 Serjio Garsia MD Other Provider Active Start: August 29, 2024 Jose Mcclain DO Other Provider Active Start: August 29, 2024 Cristal Malloy RN Other Provider Active Start : August 29, 2024 John Dorado MD Other Provider Active Start: A 2024 Wade Rose APRN Other Provider Active Star t: August 29, 2024 Adarsh New MD Other Provider Active S tart: August 29, 2024 Robinson Hlal MD Other Provider Active Start: A 2024 Bora Severino MD Other Provider Active Start: Aug Ariadna Spear RN Other Provider Active Star t: August 29, 2024 Felisa Saxena , MACHINE ADJUSTER LEADER CASE TRIM Other Provider Active Sta rt: August 29, 2024 Felix Smith , DO Other Provider Active Start: August 29, 2024 Brian Patel MD Other Provider Active Start: Ap ril 2024 Dennys Montesinos MD Other Provider Active Start: August 29, 2024 Jovani Callahan , DO Other Provider Active Start: August 29, 2024 Lauren Soto , FINANCIAL DATA ANALYST-C Other Provider Active St art: August 29, 2024 Adeel Singletary MD Other Provider Active Start : August 29, 2024 Chivo Ordaz , DO Other Provider Active Start : August 29, 2024 Yani De Leon , DO Other Provider Active Start : August 29, 2024 Fidelia Kruse MD Other Provider Active Start: August 29, 2024 Jose Antony DO Other Provider Active St art: August 29, 2024 Sangita Zamora , MACHINE ADJUSTER LEADER CASE TRIM Other Provider Active St art: August 29, 2024 Jazmin Ulrich APRN Other Provider Active Start: August 29, 2024 Vazquez Marvin MD Other Provider Active Start: August 29, 2024 Scotty Dill MD Other Provider Active Start: A pril 2024 Estefani De La Cruz MD Other Provider Active Start: August 29, 2024 Suzette Carey RN Other Provider Active Start: A pril 2024 Janis Rondon RN Other Provider Active Start: A pril 2024 Selina Gallego RN Other Provider Active Start: Ap ril 2024 Ted Ontiveros MD Other Provider Active Start: Ap ril 2024 Ivana Kelly MD Other Provider Active Start : August 29, 2024 Flavio Ramirez MD Other Provider Active Start: August 29, 2024 Abraham Ramirez MD Other Provider Active Start: Apr il 2024 Tomeka Vuong DO Other Provider Active Start: Ap ril 2024 Dariela Hernández APRN Other Provider Active Start : August 29, 2024 Nhi Graham APRN Other Provider Active Start: August 29, 2024 Alex Maloney MD Other Provider Active Start: Ap ril 2024 Otilio Umanzor , Other Provider Active Start: August 29, 2024 Rena Alexis MD Other Provider Active Start: August 29, 2024 José Luis Griffith MD Other Provider Active Start: A pril 2024 Manager Lighting Relationship Specialty Start Date End Date Adarsh Manrique MD [address] [place] [address] [place] [address] PCP - General Internal Medicine 10/23/22 Adarsh Manrique MD [address] [place] [address] [place] [address] PCP - ACO Reach 10/22/22 Team Status: Inactive Member Role Status Dates Adarsh Manrique II MD Primary Care Provider Active Start: September 14, 2024 End: September 14, 2024 Demarcus Barahona II, MD Attending Provider Active Start: September 14, 2024 End: September 14, 2024 Team Status: Inactive Member Role Status Dates Adarsh Manrique II MD Primary Care Provider Active Start: October 18, 2024 End: October 18, 2024 Demarcus Barahona II, MD Attending Provider Active Start: October 18, 2024 End: October 18, 2024 Manager Lighting Relationship Specialty Start Date End Date Adarsh Manrique MD [address] [facility] [address] [place] [address] PCP - General Internal Medicine 10/23/22 Adarsh Manrique MD [address] [place] [address] [place] [address] PCP - ACO Reach 10/22/22 Manager Lighting Relationship Specialty Start Date End Date Adarsh Manrique MD [address] [place] [address] [place] [address] PCP - General Internal Medicine 10/23/22 Adarsh Manrique MD [address] [place] [address] [place] [address] PCP - ACO Reach 10/22/22 Team Status: Active Member Role Status Dates Adarsh Manrique II MD Primary Care Provider Active Start: November 29, 2024 Demarcus Barahona II, MD Attending Provider Active Start: November 29, 2024 Team Status: Inactive Member Role Status Dates Adarsh Manrique II MD Primary Care Provider Active Start: November 29, 2024 End: November 29, 2024 Demarcus Barahona II, MD Attending Provider Active Start: November 29, 2024 End: November 29, 2024 Reason for Visit (unrecogniz ed section and content) Reason Comments Hypertension Migraine Reason Comments discuss treatment options Pt states urol ogy advised her to discuss changing topamax due increased chance of kidney stonesPt also wondering if candesartan could be changed or decreased due to occ. Getting dizzy Reason Comments Glaucoma Reason Onset Date Comments Med Refill 10/02/2024 Reason Comments Follow-up Glaucoma Reason Comments Dizziness FOR RECORDS PERTAINING TO PATIENTS WHO ARE [...] BE BASED ON THE PRIMARY CLINICAL RECORDS. [employer] provides no warranty or guarantee of the accuracy or completeness of information in this document.
--- NOTE | 2025-01-23 09:49 | XR_ITS ---
The [address] [address] Patient Name: MAVIS PORTER MRN: [id number] date: 1945 Sex: F Assigned Patient Location: [place] Current Patient Location: [place] Accession/Order Number: [id number] Exam Date: 01/23/2025 09:45 Report Date: 01/23/2025 10:25 At the request of: RHINA BAPTISTE MD Procedure: XR abdomen 1V SINGLE VIEW ABDOMEN COMPARISON: 12/21/2023 CLINICAL DATA: Annual follow-up of kidney stones. Supine view of the abdomen and pelvis was obtained. There is air and stool within the colon. There is no dilated small bowel. Both kidneys are obscured. No obvious radiopaque renal or ureteral stones are noted. No soft tissue masses are seen. There is subtle reverse S-shaped thoracolumbar scoliotic curvature as well as degenerative changes at the spine, SI joints and hips. XR/XR abdomen 1V IMPRESSION: NO RADIOPAQUE STONES. Impression dictated by: Nolvia Fink M.D. 01/23/2025 10:25 AM Dictation Location: [place] [address] Electronically authenticated by: [id number] Y Date: 01/23/2025 10:25
== END 2025-01-23 09:39 | disposition home or self-care (01) ==
LOC: US 09:39
PROVIDERS: PCP Internal Medicine; Visit Provider Urology
DX: N20.0 Calculus of kidney (principal); Z87.442 Personal history of urinary calculi
CPT/HCPCS: 74018; 76775

== ENCOUNTER 2025-03-15 13:04 | Outpatient (OUT) | payer MEDICARE, OTHER, SELFPAY ==
--- OUTSIDE RECORDS SUMMARY | 2025-03-15 13:10 | XMS_ITS | Encounter Summary ---
Author Organization [facility] Address [address] [place] [address] Care Team Providers Care Legal Biller Name Role Phone Adarsh Manrique MD Primary Care Provider Adarsh Manrique MD Unavailable [phone] Kelly Nice HOUSE WORKER GENERAL Unavailable [phone] Encounter Details Date Type Department Care Team (Late st Contact Info) Description 06/16/2023 Abstract [facility] [place] [facility] [address] [facility] [address] [place] [id number] Adarsh Manrique MD [address] [facility] [address] [place], [place] [id number] Social History Tobacco Use Types Packs/Day Years [...] Care Team (Late st Contact Info) Description 03/19/2025 2:00 PM EDT Office Visit [facility] [address] [place] [id number] Raffaele Castillo, DO [address] [place] [address] 07/25/2025 9:30 AM EST Office Visit [facility] [place] [facility] [address] [facility] [address] [place] [id number] Adarsh Manrique MD [address] [facility] [address] [place] [address] documented as of this encounter Visit Diagnoses Not on filedocumented in this encounter Care Teams Legal Biller Relationship Specialty Start Date End Date Adarsh Manrique MD [address] [facility] [address] [place] [address] PCP - General Internal Medicine 10/23/22 Adarsh Manrique MD [address] [facility] [address] [place] [address] PCP - ACO Reach 10/22/22 Kelly Nice, JOSE MANUEL [address] [place] [address] Payroll Accounting Clerk Family Medicine 10/25/24 11/14/24 documented as of this encounter
--- OUTSIDE RECORDS SUMMARY | 2025-03-15 13:10 | XMS_ITS | Encounter Summary ---
Author Organization [facility] Address [address] [place] [address] Care Team Providers Care Youth Officer Name Role Phone Adarsh Manrique MD Primary Care Provider [phone] Adarsh Manrique MD Unavailable [phone] Kelly Nice PROFESSOR OF COMMUNICATION Unavailable [phone] Encounter Details Date Type Department Care Team (Late st Contact Info) Description 06/01/2023 Clinisync Result Encounter [facility] External Department Unsolicited Adarsh Manrique MD 112 [facility] 110 [place] [address] Social History Tobacco Use Types Packs/Day Years [...] 03/19/2025 2:00 PM EDT Office Visit [facility] Eye [address] [place] [address] Raffaele Castillo DO [address] [place] [address] 07/25/2025 9:30 AM EST Office Visit [facility] [place] [facility] 112 [facility] 110 [place] [address] Adarsh Manrique MD 112 [facility] 110 [place] [address] documented as of this encounter Procedures Procedure Name Priority Date/Time Associated Diagnosis Comments XR CHEST 2V 06/01/2023 11:46 AM EST documented in this encounter Results * XR CHEST 2V (06/01/2023 11:46 AM EST) Anatomical Region Laterality Modality Other 06/01/2023 11:4 6 AM EST Narrative 06/01/2023 11:49 AM EST [address] [address] XRay Report Signed Patient: JEANNETTE BRIGHT MR#: [id number] : 1945 Acct:[id number] Age/Sex: 78 / F ADM Date: 06/01/23 Loc: RAD Attending Dr: ADARSH MANRIQUE Ordering Physician: ADARSH MANRIQUE Date of Service: 06/01/23 Procedure(s): XR chest 2V Accession Number(s): [id number] cc: ADARSH MANRIQUE [address] [address] Patient Name: JEANNETTE BRIGHT MRN: [id number] date: 1945 Sex: F Assigned Patient Location: [facility] Current Patient Location: RAD Accession/Order Number: [id number] Exam Date: 06/01/2023 11:15 Report Date: 06/01/2023 [...] Signed By: 06/01/23 1149 DD/ 1146 TD/TT: Finishing Department Supervisor: Procedure Note Radiology, Radiologist, MD - 06/01/2023 [place] [address] XRay Report Signed Patient: JEANNETTE BRIGHT GMR#: [id number] : 1945cct:[id number] Age/Sex: 78 / FADM Date: 06/01/23 Loc: RAD Attending Dr: ADARSH MANRIQUE Ordering Physician: ADARSH MANRIQUE Date of Service: 06/01/23 Procedure(s): XR chest 2V Accession Number(s): [id number] cc: ADARSH MANRIQUE [place] [id number] Patient Name: JEANNETTE BRIGHT MRN: [id number] date: 1945 Sex: F Assigned Patient Location: [facility] Current Patient Location: [facility] Accession/Order Number: [id number] Exam Date: 06/01/2023 11:15 Report Date: 06/01/2023 [...] M.D. Signed By:06/01/23 1149 DD/ 1146 TD/TT: Finishing Department Supervisor: Adarsh Manrique MD [facility] Final Result documented in this encounter Visit Diagnoses Not on filedocumented in this encounter Care Teams Youth Officer Relationship Specialty Start Date End Date Adarsh Manrique MD [address] [facility] 110 [place] [address] PCP - General Internal Medicine 10/23/22 Adarsh Manrique MD [address] [facility] 110 [place] [address] PCP - ACO Reach 10/22/22 Kelly Nice, PROFESSOR OF COMMUNICATION [address] [place] [address] Intern Architect Family Medicine 10/25/24 11/14/24 documented as of this encounter
--- OUTSIDE RECORDS SUMMARY | 2025-03-15 13:10 | XMS_ITS | Encounter Summary ---
Author Organization [facility] Address [address] [place] [address] Care Team Providers Care Electronic Warfare Specialist Name Role Phone Adarsh Manrique MD Primary Care Provider Adarsh Manrique MD Unavailable [phone] Kelly Nice BENDER MACHINE Unavailable [phone] Encounter Details Date Type Department Care Team (Late st Contact Info) Description 06/16/2023 Abstract [facility] [place] [facility] [address] [facility] 110 [place] [address] Adarsh Manrique MD 112 [facility] 110 [place], [place] [address] Social History Tobacco Use Types Packs/Day Years [...] 03/19/2025 2:00 PM EDT Office Visit [facility] Eye [address] [place] [address] Raffaele Castillo, DO [address] [place] [address] 07/25/2025 9:30 AM EST Office Visit [facility] [place] [facility] [address] [facility] [address] [place] [address] Adarsh Manrique MD [address] [facility] 110 [place] [address] documented as of this encounter Visit Diagnoses Not on filedocumented in this encounter Care Teams Electronic Warfare Specialist Relationship Specialty Start Date End Date Adarsh Manrique MD [address] [facility] 110 [place] [address] PCP - General Internal Medicine 10/23/22 Adarsh Manrique MD [address] [facility] [address] [place] [address] PCP - ACO Reach 10/22/22 Kelly Nice, JOSE MANUEL [address] [place] [address] Display Screen Fabricator Family Medicine 10/25/24 11/14/24 documented as of this encounter
--- OUTSIDE RECORDS SUMMARY | 2025-03-15 13:10 | XMS_ITS | Encounter Summary ---
Author Organization [facility] Address [address] [place] [address] Care Team Providers Care Sheet Manufacturing Supervisor Name Role Phone Adarsh Manrique MD Primary Care Provider Adarsh Manrique MD Unavailable [phone] Encounter Details Date Type Department Care Team (Late Contact Info) Description 11/30/2024 Abstract [facility] [place] [facility] [address] [facility] 110 [place] [address] Adarsh Manrique MD 112 [facility] 110 [place] [address] Social History Tobacco Use Types [...] 03/19/2025 2:00 PM EDT Office Visit [facility] Eye [address] [place] [address] Raffaele Castillo, DO [address] [place] [address] 07/25/2025 9:30 AM EST Office Visit [facility] [place] [address] [facility] 110 [place] [address] Adarsh Manrique MD [address] [facility] 110 [place] [address] documented as of this encounter Visit Diagnoses Not on filedocumented in this encounter Additional Health Concerns Assessment Noted Time PHQ-9 Depression Total Score: 0 07/27/19 9:00 AM EST documented as of this encounter Care Teams Sheet Manufacturing Supervisor Relationship Specialty Start Date End Date Adarsh Manrique MD [address] [facility] [address] [place] [address] PCP - General Internal Medicine 10/23/22 Adarsh Manrique MD [address] [facility] [address] [place] [address] PCP - ACO Reach 10/22/22 documented as of this encounter
--- OUTSIDE RECORDS SUMMARY | 2025-03-15 13:10 | XMS_ITS | Encounter Summary ---
Author Organization [facility] Address [address] [place] [address] Care Team Providers Care Ax Survey Worker Name Role Phone Adarsh Manrique MD Primary Care Provider [phone] Adarsh Manrique MD Unavailable [phone] Kelly Nice TEST CONDUCTOR Unavailable [phone] Encounter Details Date Type Department Care Team (Late st Contact Info) Description 07/10/2024 Abstract [facility] [place] [facility] [address] [facility] 110 [place] [address] Adarsh Manrique MD 112 [facility] 110 [place], [place] [phone] Social History Tobacco Use Types Packs/Day Years [...] 03/19/2025 2:00 PM EDT Office Visit [facility] [address] [place] [address] Raffaele Castillo, DO [address] [place] [address] 07/25/2025 9:30 AM EST Office Visit [facility] [place] [address] [facility] 110 [place] [address] Adarsh Manrique MD [address] [facility] 110 [place] [address] documented as of this encounter Visit Diagnoses Not on filedocumented in this encounter Care Teams Ax Survey Worker Relationship Specialty Start Date End Date Adarsh Manrique MD [address] [facility] 110 [place] [address] PCP - General Internal Medicine 10/23/22 Adarsh Manrique MD [address] [facility] 110 [place] [address] PCP - ACO Reach 10/22/22 Kelly Nice, JOSE MANUEL [address] [place] [address] Student Career Development Specialist Family Medicine 10/25/24 11/14/24 documented as of this encounter
--- OUTSIDE RECORDS SUMMARY | 2025-03-15 13:10 | XMS_ITS | Encounter Summary ---
Author Organization [facility] Address [address] [place] [address] Care Team Providers Care Critical Care Nurse Specialist Name Role Phone Adarsh Manrique MD Primary Care Provider [phone] Adarsh Manrique MD Unavailable [phone] Kelly Nice LEATHER CRAFTSMAN Unavailable [phone] Encounter Details Date Type Department Care Team (Late st Contact Info) Description 10/19/2024 Abstract [facility] [place] [facility] 112 [facility] 110 [place] [address] Adarsh Manrique MD 112 [facility] 110 [place], [place] [address] Social History Tobacco Use Types Packs/Day Years [...] 03/19/2025 2:00 PM EDT Office Visit [facility] [address] [place] [address] Raffaele Castillo, DO [address] [place] [address] 07/25/2025 9:30 AM EST Office Visit [facility] [place] [address] [facility] [address] [place] [address] Adarsh Manrique MD [address] [facility] 110 [place] [address] documented as of this encounter Visit Diagnoses Not on filedocumented in this encounter Additional Health Concerns Assessment Noted Time PHQ-9 Depression Total Score: 0 07/27/19 9:00 AM EST documented as of this encounter Care Teams Critical Care Nurse Specialist Relationship Specialty Start Date End Date Adarsh Manrique MD [address] [facility] [address] [place] [address] PCP - General Internal Medicine 10/23/22 Adarsh Manrique MD [address] [facility] 110 [place] [address] PCP - ACO Reach 10/22/22 Kelly Nice, JOSE MANUEL [address] [place] [address] Engine Repair Supervisor Family Medicine 10/25/24 11/14/24 documented as of this encounter
--- OUTSIDE RECORDS SUMMARY | 2025-03-15 13:10 | XMS_ITS | Encounter Summary ---
Author Organization [facility] Address [address] [place] [address] Care Team Providers Care Cook Frozen Dessert Name Role Phone Adarsh Manrique MD Primary Care Provider Adarsh Manrique MD Unavailable [phone] eKlly Nice CONSULTANT Unavailable [phone] Encounter Details Date Type Department Care Team (Late st Contact Info) Description 06/14/2023 Orders Only [facility] [place] [facility] 112 [facility] 110 [place] [address] A, Unknown Practice [address] [place] [phone] Social History Tobacco Use Types Packs/Day Years [...] 03/19/2025 2:00 PM EDT Office Visit [facility] [address] [place] [address] Raffaele Castillo, DO [address] [place] [address] 07/25/2025 9:30 AM EST Office Visit [facility] [place] [address] [facility] [address] [place] [phone] Adarsh Manrique MD [address] [facility] [address] [place] [address] documented as of this encounter Procedures Procedure [...] on filedocumented in this encounter Care Teams Cook Frozen Dessert Relationship Specialty Start Date End Date Adarsh Manrique MD [address] [facility] [address] [place] [address] PCP - General Internal Medicine 10/23/22 Adarsh Manrique MD [address] [facility] [address] [place] [address] PCP - ACO Reach 10/22/22 Kelly Nice, CONSULTANT [address] [facility] [place] [address] Electron Microprobe Operator Family Medicine 10/25/24 11/14/24 documented as of this encounter
--- OUTSIDE RECORDS SUMMARY | 2025-03-15 13:10 | XMS_ITS | Encounter Summary ---
Author Organization [facility] Address [address] [place] [address] Care Team Providers Care Fiber Analyst Name Role Phone Adarsh Manrique MD Primary Care Provider Adarsh Manrique MD Unavailable [phone] Kelly Nice MANUSCRIPTS ARCHIVIST Unavailable [phone] Encounter Details Date Type Department Care Team (Late st Contact Info) Description 08/30/2024 Abstract [facility] [place] [facility] [address] [facility] 110 [place] [address] Adarsh Manrique MD 112 [facility] 110 [place], [place] [address] Social History Tobacco Use Types Packs/Day Years [...] 03/19/2025 2:00 PM EDT Office Visit [facility] [address] [place] [address] Raffaele Castillo, DO [address] [place] [address] 07/25/2025 9:30 AM EST Office Visit [facility] [place] [address] [facility] 110 [place] [address] Adarsh Manrique MD [address] [facility] 110 [place] [address] documented as of this encounter Visit Diagnoses Not on filedocumented in this encounter Additional Health Concerns Assessment Noted Time PHQ-9 Depression Total Score: 0 07/27/19 9:00 AM EST documented as of this encounter Care Teams Fiber Analyst Relationship Specialty Start Date End Date Adarsh Manrique MD [address] [facility] 110 [place] [address] PCP - General Internal Medicine 10/23/22 Adarsh Manrique MD [address] [facility] 110 [place] [address] PCP - ACO Reach 10/22/22 Kelyl Nice, JOSE MANUEL [address] [place] [address] English Professor Family Medicine 10/25/24 11/14/24 documented as of this encounter
--- OUTSIDE RECORDS SUMMARY | 2025-03-15 13:10 | XMS_ITS | Encounter Summary ---
Author Organization [facility] Address [address] [place] [address] Care Team Providers Care Textbook Associate Name Role Phone Adarsh Manrique MD Primary Care Provider [phone] Adarsh Manrique MD Unavailable [phone] Encounter Details Date Type Department Care Team (Late Contact Info) Description 02/07/[address] [place] [facility] [address] [facility] 110 [place] [address] Adarsh Manrique MD 112 [facility] 110 [place] [address] Social History Tobacco Use Types [...] 03/19/2025 2:00 PM EDT Office Visit [facility] [address] [place] [address] Raffaele Castillo, DO [address] [place] [address] 07/25/2025 9:30 AM EST Office Visit [facility] [place] [address] [facility] [address] [place] [address] Adarsh Manrique MD [address] [facility] [address] [place] [address] documented as of this encounter Visit Diagnoses Not on filedocumented in this encounter Additional Health Concerns Assessment Noted Time PHQ-9 Depression Total Score: 0 07/27/19 9:00 AM EST documented as of this encounter Care Teams Textbook Associate Relationship Specialty Start Date End Date Adarsh Manrique MD [address] [facility] [address] [place] [address] PCP - General Internal Medicine 10/23/22 Adarsh Manrique MD [address] [facility] [address] [place] [address] PCP - ACO Reach 10/22/22 documented as of this encounter
--- OUTSIDE RECORDS SUMMARY | 2025-03-15 13:10 | XMS_ITS | Clinical Summary ---
Author Organization [facility] Address [address] [place] [address] Care Team Providers Care Walking Dragline Operator Name Role Phone Adarsh Manrique MD Primary Care Provider [phone] Adarsh Manrique MD Unavailable [phone] Allergies Active Allergy Reactions Criticality Noted Date Comments Nitrofurantoin Dizziness 10/29/2022 Medications Calcium Carbonate-Vitamin D (Oyster Shell Calcium/D) 500-5 MG-MCG tabletIndications :Decreased estrogen level Take 1 tablet by mouth in the morning and 1 tablet before bedtime. 60 tablet 1 4 Active cholecalciferol (Vitamin D-3) 50 MCG (1999) tabletIndications :Vitamin D deficiency Take 1,000 Units by mouth in the morning. 90 tablet 1 4 Active aspirin (ASPIR) 81 MG EC tabletIndications :Chest pain, unspecified type Take 1 tablet (81 mg) by mouth Daily 90 tablet 4 Active Multiple Vitamin (multivitamin) capsuleIndication s:Routine general medical examination at a health care facility Take 1 capsule by mouth 1 (one) time each day at the same time 90 capsule 1 4 Active Latanoprostene Bunod (Vyzulta) 0.024 % solutionIndicatio ns:Primary open angle glaucoma (POAG) of left eye, mild stage Administer 1 drop into the left eye Daily 5 mL 5 5 Active omeprazole (PriLOSEC) [address] capsuleIndication s:GERD without esophagitis Take 1 capsule (40 mg) by mouth Daily 100 capsule 3 5 Active candesartan-hydro CHLOROthiazide (Atacand HCT) 16-12.5 MG tabletIndications :Primary hypertension Take 1 tablet by mouth Daily 100 tablet 3 5 02/23/20 26 Active atorvastatin (Lipitor) 40 MG tabletIndications :Pure hypercholesterole ely, unspecified Take 1 tablet (40 mg) by mouth Daily 100 tablet 3 5 Active Active Problems Problem Noted Date Diagnosed [...] and fo ot 10/29/2022 Pure hypercholesterolemia, unspecified 3 S/P pneumonectomy 10/29/2022 Unsteadiness on feet 10/29/2022 [...] injury 11/28/2015 10/29/2022 Right eyelid laceration 11/28/2015 06/05/2022 SAH (subarachnoid hemorrhage) 11/28/2015 07/27/2024 Encounters Date Type Department Care Team Description 02/22/2025 9:00 AM EDT Office Visit [facility] [place] [address] [place] [address] Adarsh Manrique MD Primary hypertension (Primary Dx); Flu vaccine need; CVD (cardiovascular disease) ; Pure hypercholesterolemia, unspecified ; Primary osteoarthritis of left knee 02/22/2025 Bamboo flowsheet [facility] [place] [facility] 112 [facility] [place] [address] Adarsh Manrique MD 02/22/2025 Travel 02/07/2025 Abstract [facility] [place] [facility] [address] [facility] [place] [address] Adarsh Manrique MD 01/23/2025 Clinisync Result Encounter NOM[facility] External Department Unsolicited Provider, Generic External Data 01/23/2025 Clinisync Result Encounter NOMS External Department Unsolicited Provider, Generic External Data 01/18/2025 Refill [facility] [place] [facility] [address] [facility] [address] [place] [address] Ama Garcia LPN GERD without esophagitis; Primary hypertension ; Pure hypercholesterolemia, unspecified from Last 3 Months Immunizations Immunization Administration Dates Next Due Influenza, High Dose Seasona l, Preservative Free 02/22/2025 Influenza, High-dose Seasona l, Quadrivalent, Preservative Free [...] Sign Reading Time Taken Comments Blood Pressure 130/80 02/22/2025 8:51 AM EDT Pulse 68 02/22/2025 8:51 AM EDT Temperature - - Respiratory Rate 16 07/27/2024 10:08 AM EST Oxygen Saturation 95% 02/22/2025 8:51 AM EDT Inhaled Oxygen Concentration - - Weight 75.8 kg (167 lb) 02/22/2025 8:51 AM EDT Height 154.9 cm (5' 1 ) 02/22/2025 8:51 AM EDT Body Mass Index 31.55 02/22/2025 8:51 AM EDT Plan of Treatment Upcoming Encounters Date Type Department Care Team (Late st Contact Info) Description 03/19/2025 2:00 PM EDT Office Visit [facility] [address] [place] [address] Raffaele Castillo DO [address] [place] [address] 07/25/2025 9:30 AM EST Office Visit [facility] [place] 112 [facility] 110 [place] [address] Adarsh Manrique MD 112 [facility] 110 [place] [address] Health Maintenance Due Date Last Done Comments Medicare Annual Wellness (AWV) 07/27/2025 07/27/2024 , 03/19/2022 Pneumococcal Vaccine: 65+ Years Completed 03/01/2017, 09/02/2015, 09/06/2014, Additional history exists Influenza Vaccine Completed 02/22/2025, , 04/07/2023, Additional history exists Procedures Procedure Name Priority Date/Time Associated Diagnosis Comments US RENAL BI 01/23/2025 10:31 AM EDT XR ABDOMEN 1V 01/23/2025 10:25 AM EDT from Last 3 Months Results * US RENAL BI (01/23/2025 10:31 AM EDT) Anatomical Region Laterality Modality Other 01/23/2025 10:3 1 AM EDT Narrative 01/23/2025 10:33 [place] [address] Ultrasound Report Signed Patient: MAVIS BRIGHT MR#: [id number] : 1945 Acct:[id number] Age/Sex: 79 / F ADM Date: 01/23/25 Loc: US Attending Dr: Rhina Baptiste M.D. Ordering Physician: Rhina Baptiste M.D. Date of Service: 01/23/25 Procedure(s): US renal BI Accession Number(s): [id number] cc: ADARSH MANRIQUE ; Rhina Baptiste M.D. The [place] [id number] Patient Name: MAVIS BRIGHT MRN: [id number] date: 1945 Sex: F Assigned Patient Location: US Current Patient Location: US Accession/Order Number: [id number] Exam Date: 01/23/2025 09:45 Report Date: 01/23/2025 10:31 At the request of: RHINA BAPTISTE MD Procedure: US renal BI BILATERAL RENAL AND BLADDER ULTRASOUND CLINICAL HISTORY: Personal History Kidney Stones COMPARISON: 12/21/[address] 06/15/2023 Estimation of renal size is approximately 11.0 cm on the right and 9.5 cm on the left. There are multiple echogenic foci throughout both kidneys suggesting stones. The largest on the right is toward the lower pole measuring 6 mm and on the left at the midpole measuring 9 mm. There is a cortical cyst at the upper pole on the right measuring 11 mm. There are bilateral parapelvic renal cysts which were also seen previously. No hydronephrosis is noted. There is no perinephric fluid. The urinary bladder is partially distended with a volume of 150 mL. No contour or intraluminal abnormalities are seen. US/US renal BI IMPRESSION: BILATERAL NEPHROLITHIASIS AND CYSTS. NO OBSTRUCTIVE UROPATHY. Impression dictated by: Nolvia Fink M.D. 01/23/2025 10:31 AM Dictation Location: [place] [address] Electronically authenticated by: [id number] Y Date: 01/23/2025 10:31 Dictated By: Nolvia Fink M.D. Signed By: 01/23/25 1033 DD/ 1031 TD/TT: Engine Mechanic: Procedure Note Radiology, Radiologist, MD - 01/23/2025 [place] [address] Ultrasound Report Signed Patient: MAVIS BRIGHT GMR#: [id number] : 1945cct:[id number] Age/Sex: 79 / FADM Date: 01/23/25 Loc: US Attending Dr: Rhina Baptiste M.D. Ordering Physician: Rhina Baptiste M.D. Date of Service: 01/23/25 Procedure(s): US renal BI Accession Number(s): [id number] cc: ADARSH MANRIQUE ; Rhina Baptiste M.D. [facility] [place] [id number] Patient Name: MAVIS BRIGHT MRN: [id number] date: 1945 Sex: F Assigned Patient Location: US Current Patient Location: US Accession/Order Number: [id number] Exam Date: 01/23/2025 09:45 Report Date: 01/23/2025 10:31 At the request of: RHINA BAPTISTE MD Procedure: US renal BI BILATERAL RENAL AND BLADDER ULTRASOUND CLINICAL HISTORY: Personal History Kidney Stones COMPARISON: 12/21/[address] 06/15/2023 Estimation of renal size is approximately 11.0 cm on the right and 9.5 cmon the left. There are multiple echogenic foci throughout both kidneys suggesting stones. The largest on the right is toward the lower pole measuring 6 mm and on the left at the midpole measuring 9 mm. There is a cortical cyst at the upper pole on the right measuring 11 mm. There are bilateral parapelvic renal cysts which were also seen previously. No hydronephrosis is noted. There is no perinephric fluid. The urinary bladder is partially distended with a volume of 150 mL. Nocontour or intraluminal abnormalities are seen. US/US renal BI IMPRESSION: BILATERAL NEPHROLITHIASIS AND CYSTS. NO OBSTRUCTIVE UROPATHY. Impression dictated by: Nolvia Fink M.D. 01/23/2025 10:31 AM Dictation Location: [place] [address] Electronically authenticated by: [id number] Y Date: 0:31 Dictated By: Nolvia Fink M.D. Signed By:01/23/25 1033 DD/ 1031 TD/TT: Engine Mechanic: us Generic External Data Provider [facility] Final Result * XR ABDOMEN 1V (01/23/2025 10:25 AM EDT) Anatomical Region Laterality Modality Other 01/23/2025 10:2 5 AM EDT Narrative 01/23/2025 10:28 [place] [address] XRay Report Signed Patient: MAVIS BRIGHT MR#: [id number] : 1945 Acct:[id number] Age/Sex: 79 / F ADM Date: 01/23/25 Loc: US Attending Dr: Rhina Baptiste M.D. Ordering Physician: Rhina Baptiste M.D. Date of Service: 01/23/25 Procedure(s): XR abdomen 1V Accession Number(s): [id number] cc: ADARSH MANRIQUE ; Rhina Baptiste M.D. [facility] [place] [id number] Patient Name: MAVIS BRIGHT MRN: [id number] date: 1945 Sex: F Assigned Patient Location: US Current Patient Location: US Accession/Order Number: [id number] Exam Date: 01/23/2025 09:45 Report Date: 01/23/2025 10:25 At the request of: RHINA BAPTISTE MD Procedure: XR abdomen 1V SINGLE VIEW ABDOMEN COMPARISON: 12/21/2023 CLINICAL DATA: Annual follow-up of kidney stones. Supine view of the abdomen and pelvis was obtained. There is air and stool within the colon. There is no dilated small bowel. Both kidneys are obscured. No obvious radiopaque renal or ureteral stones are noted. No soft tissue masses are seen. There is subtle reverse S-shaped thoracolumbar scoliotic curvature as well as degenerative changes at the spine, SI joints and hips. XR/XR abdomen 1V IMPRESSION: NO RADIOPAQUE STONES. Impression dictated by: Nolvia Fink M.D. 01/23/2025 10:25 AM Dictation Location: [place] [address] Electronically authenticated by: [id number] Y Date: 01/23/2025 10:25 Dictated By: Nolvia Fink M.D. Signed By: 01/23/25 1028 DD/ 1025 TD/TT: Engine Mechanic: Procedure Note Radiology, Radiologist, MD - 01/23/2025 The [place] [id number] XRay Report Signed Patient: MAVIS BRIGHT GMR#: [id number] : 1945cct:[id number] Age/Sex: 79 / FADM Date: 01/23/25 Loc: US Attending Dr: Rhina Baptiste M.D. Ordering Physician: Rhina Baptiste M.D. Date of Service: 01/23/25 Procedure(s): XR abdomen 1V Accession Number(s): [id number] cc: ADARSH MANRIQUE ; Rhina Baptiste M.D. [facility] [place] [id number] Patient Name: MAVIS BRIGHT MRN: [id number] date: 1945 Sex: F Assigned Patient Location: US Current Patient Location: US Accession/Order Number: [id number] Exam Date: 01/23/2025 09:45 Report Date: 01/23/2025 10:25 At the request of: RHINA BAPTISTE MD Procedure: XR abdomen 1V SINGLE VIEW ABDOMEN COMPARISON: 12/21/2023 CLINICAL DATA: Annual follow-up of kidney stones. Supine view of the abdomen and pelvis was obtained. There is air andstool within the colon. There is no dilated small bowel. Both kidneys are obscured. No obvious radiopaque renal or ureteral stones are noted. Nosoft tissue masses are seen. There is subtle reverse S-shaped thoracolumbar scoliotic curvature as well as degenerative changes at the spine, SIjoints and hips. XR/XR abdomen 1V IMPRESSION: NO RADIOPAQUE STONES. Impression dictated by: Nolvia Fink M.D. 01/23/2025 10:25 AM Dictation Location: [place] [address] Electronically authenticated by: [id number] Y Date: 0:25 Dictated By: Nolvia Fink M.D. Signed By:01/23/25 1028 DD/ 1025 TD/TT: Engine Mechanic: Generic External Data Provider [facility] Final Result from Last 3 Months [place] [address] [facility] Care Teams Walking Dragline Operator Relationship Specialty Start Date End Date Adarsh Manrique MD [address] [place] [address] PCP - General Internal Medicine 10/23/22 Adarsh Manrique MD [address] [place] [address] PCP - ACO Reach 10/22/22
--- OUTSIDE RECORDS SUMMARY | 2025-03-15 13:10 | XMS_ITS | Encounter Summary ---
Author Organization [facility] Address [address] [place] [address] Care Team Providers Care Waiter/Waitress Bar Name Role Phone Adarsh Manrique MD Primary Care Provider [phone] Adarsh Manrique MD Unavailable [phone] Kelly Nice GENERAL CLEANER Unavailable [phone] Encounter Details Date Type Department Care Team (Late st Contact Info) Description 06/01/2023 Orders Only [facility] [place] [facility] 112 [facility] 110 [place] [address] A, Unknown Practice [address] [place] [id number] Social History Tobacco Use Types Packs/Day Years [...] 03/19/2025 2:00 PM EDT Office Visit [facility] [address] [place] [address] Raffaele Castillo, DO [address] [place] [address] 07/25/2025 9:30 AM EST Office Visit [facility] [place] [facility] [address] [facility] 110 [place] [address] Adarsh Manrique MD [address] [facility] 110 [place] [address] documented as of this encounter Procedures Procedure [...] on filedocumented in this encounter Care Teams Waiter/Waitress Bar Relationship Specialty Start Date End Date Adarsh Manrique MD [address] [place] [address] PCP - General Internal Medicine 10/23/22 Adarsh Manrique MD [address] [facility] 110 [place] [address] PCP - ACO Reach 10/22/22 Kelly Nice, GENERAL CLEANER [address] [place] [address] Laboratory Equipment Cleaner Family Medicine 10/25/24 11/14/24 documented as of this encounter
--- OUTSIDE RECORDS SUMMARY | 2025-03-15 13:10 | XMS_ITS | Encounter Summary ---
Author Organization [facility] Address [address] [place] [address] Care Team Providers Care Circle Saw Operator Name Role Phone Adarsh Manrique MD Primary Care Provider Adarsh Manrique MD Unavailable [phone] Kelly Nice BUSINESS AGENT Unavailable [phone] Encounter Details Date Type Department Care Team (Late st Contact Info) Description 08/21/2024 Abstract [facility] [place] [facility] [address] [facility] 110 [place] [address] Adarsh Manrique MD 112 [facility] 110 [place], [place] [id number] Social History Tobacco Use Types Packs/Day Years [...] 03/19/2025 2:00 PM EDT Office Visit [facility] [address] [place] [address] Raffaele Castillo, DO [address] [place] [address] 07/25/2025 9:30 AM EST Office Visit [facility] [place] [facility] [address] [email or web address] 110 [place] [address] Adarsh Manrique MD [address] [facility] 110 [place] [address] documented as of this encounter Visit Diagnoses Not on filedocumented in this encounter Additional Health Concerns Assessment Noted Time PHQ-9 Depression Total Score: 0 07/27/19 9:00 AM EST documented as of this encounter Care Teams Circle Saw Operator Relationship Specialty Start Date End Date Adarsh Manrique MD [address] [facility] 110 [place] [address] PCP - General Internal Medicine 10/23/22 Adarsh Manrique MD [address] [facility] 110 [place] [address] PCP - ACO Reach 10/22/22 Kelly Nice, JOSE MANUEL [address] [place] [address] Button Maker Family Medicine 10/25/24 11/14/24 documented as of this encounter
--- OUTSIDE RECORDS SUMMARY | 2025-03-15 13:10 | XMS_ITS | Encounter Summary ---
Author Organization [facility] Address [address] [place] [address] Care Team Providers Care Steam Plant Operator Name Role Phone Adarsh Manrique MD Primary Care Provider Adarsh Manrique MD Unavailable [phone] Kelly Nice BUCKLE SEWER MACHINE Unavailable [phone] Encounter Details Date Type Department Care Team (Late st Contact Info) Description 06/28/2023 Orders Only [facility] [place] [facility] 112 [facility] 110 [place] [address] A, Unknown Practice [address] [place] [id number] Social History Tobacco Use Types Packs/Day Years [...] 03/19/2025 2:00 PM EDT Office Visit [facility] [address] [place] [address] Raffaele Castillo, DO [address] [place] [address] 07/25/2025 9:30 AM EST Office Visit [facility] [place] [facility] [address] [facility] 110 [place] [address] Adarsh Manrique MD [address] [facility] 110 [place] [address] documented as of this encounter Procedures Procedure Name Priority Date/Time Associated Diagnosis Comments ELECTROCARDIOGRAM REPORT Routine 024 1:27 PM EST documented in this encounter Results * Electrocardiogram Report (06/28/2023 1:27 PM EST) us Unknown Practice A IN CLINIC/BEDSIDE ORDERABLES Final Result documented in this encounter Visit Diagnoses Not on filedocumented in this encounter Care Teams Steam Plant Operator Relationship Specialty Start Date End Date Adarsh Manrique MD [address] [facility] [address] [place] [address] PCP - General Internal Medicine 10/23/22 Adarsh Manrique MD [address] [facility] 110 [place] [address] PCP - ACO Reach 10/22/22 Kelly Nice, BUCKLE SEWER MACHINE [address] [place] [address] Chamber Worker Family Medicine 10/25/24 11/14/24 documented as of this encounter
--- OUTSIDE RECORDS SUMMARY | 2025-03-15 13:10 | XMS_ITS | Encounter Summary ---
Author Organization [facility] Address [address] [place] [address] Care Team Providers Care Door Worker Name Role Phone Adarsh Manrique MD Primary Care Provider Adarsh Manrique MD Unavailable [phone] Kelly Nice VAT OVERHAULER Unavailable [phone] Encounter Details Date Type Department Care Team (Late st Contact Info) Description 03/22/2023 Abstract [facility] [place] [facility] [address] [facility] 110 [place] [address] Adarsh Manrique MD 112 [facility] 110 [place], [place] [address] Social History Tobacco Use Types Packs/Day Years [...] 03/19/2025 2:00 PM EDT Office Visit [facility] [address] [place] [address] Raffaele Castillo DO [address] [place] [address] 07/25/2025 9:30 AM EST Office Visit [facility] [place] [facility] [address] [facility] 110 [place] [address] Adarsh Manrique MD [address] [facility] 110 [place] [address] documented as of this encounter Visit Diagnoses Not on filedocumented in this encounter Care Teams Door Worker Relationship Specialty Start Date End Date Adarsh Manrique MD [address] [facility] 110 [place] [address] PCP - General Internal Medicine 10/23/22 Adarsh Manrique MD [address] [facility] 110 [place] [address] PCP - ACO Reach 10/22/22 Kelly Nice, JOSE MANUEL [address] [place] [address] Stud Driver Family Medicine 10/25/24 11/14/24 documented as of this encounter
--- OUTSIDE RECORDS SUMMARY | 2025-03-15 13:10 | XMS_ITS | Encounter Summary ---
Author Organization [facility] Address [address] [place] [address] Care Team Providers Care Fiber Locking Supervisor Name Role Phone Adarsh Manrique MD Primary Care Provider [phone] Adarsh Manrique MD Unavailable [phone] Kelly Nice VISUAL BASIC PROGRAMMER Unavailable [phone] Encounter Details Date Type Department Care Team (Late st Contact Info) Description 06/01/2023 Clinisync Result Encounter N[facility] External Department Unsolicited Adarsh Manrique MD 112 [facility] 110 [place] [address] Social History Tobacco Use Types [...] 03/19/2025 2:00 PM EDT Office Visit [facility] [address] [place] [address] Raffaele Castillo DO [address] [place] [address] 07/25/2025 9:30 AM EST [facility] [place] [facility] 112 [facility] 110 [place] [address] Adarsh Manrique MD 112 [facility] 110 [place] [address] documented as of this encounter Procedures Procedure Name Priority Date/Time Associated Diagnosis Comments XR KNEE 3 VIEWS LEFT 06/01/2023 11:35 AM EST documented in this encounter Results * XR knee 3 views left (06/01/2023 11:35 AM EST) Anatomical Region Laterality Modality Lower Extremities, Knee Left Radiogra phic Imaging 06/01/2023 11:3 5 AM EST Narrative 06/01/2023 11:37 AM EST [address] [address] XRay Report Signed Patient: JEANNETTE BRIGHT MR#: [id number] : 1945 Acct:[id number] Age/Sex: 78 / F ADM Date: 06/01/23 Loc: RAD Attending Dr: ADARSH MANRIQUE Ordering Physician: ADARSH MANRIQUE Date of Service: 06/01/23 Procedure(s): XR knee LT 3V Accession Number(s): [id number] cc: ADARSH MANRIQUE [address] [address] Patient Name: JEANNETTE BRIGHT MRN: [id number] date: 1945 Sex: F Assigned Patient Location: RAD Current Patient Location: CARD Accession/Order Number: [id number] Exam Date: 06/01/2023 11:15 Report Date: 06/01/2023 [...] Signed By: 06/01/23 1137 DD/ 1135 TD/TT: Matchbook Maker: Procedure Note Radiology, Radiologist, MD - 06/01/2023 [place] [address] XRay Report Signed Patient: JEANNETTE BRIGHT GMR#: [id number] : 1945cct:[id number] Age/Sex: 78 / FADM Date: 06/01/23 Loc: RAD Attending Dr: ADARSH MANRIQUE Ordering Physician: ADARSH MANRIQUE Date of Service: 06/01/23 Procedure(s): XR knee LT 3V Accession Number(s): [id number] cc: ADARSH MANRIQUE [place] [address] Patient Name: JEANNETTE BRIGHT MRN: [id number] date: 1945 Sex: F Assigned Patient Location: [facility] Current Patient Location: CARD Accession/Order Number: [id number] Exam Date: 06/01/2023 11:15 Report Date: 06/01/2023 [...] M.D. Signed By:06/01/23 1137 DD/ 1135 TD/TT: Matchbook Maker: Adarsh Manrique MD IMG XR PROCEDURES Final Result documented in this encounter Visit Diagnoses Not on filedocumented in this encounter Care Teams Fiber Locking Supervisor Relationship Specialty Start Date End Date Adarsh Manrique MD [address] [facility] 110 [place] [address] PCP - General Internal Medicine 10/23/22 Adarsh Manrique MD [address] [facility] 110 [place] [address] PCP - ACO Reach 10/22/22 Kelly Nice, VISUAL BASIC PROGRAMMER [address] [place] [address] Copier Operator Family Medicine 10/25/24 11/14/24 documented as of this encounter
--- OUTSIDE RECORDS SUMMARY | 2025-03-15 13:10 | XMS_ITS | Encounter Summary ---
Author Organization [facility] Address [address] [place] [address] Care Team Providers Care Mechanical Engineering Professor Name Role Phone Adarsh Manrique MD Primary Care Provider [phone] Adarsh Manrique MD Unavailable [phone] Kelly Nice LOGISTICS LOSS PREVENTION MANAGER Unavailable [phone] Encounter Details Date Type Department Care Team (Late st Contact Info) Description 06/16/2023 Abstract [facility] [place] [facility] [address] [facility] 110 [place] [address] Adarsh Manrique MD 112 [facility] 110 [place], [place] [address] Social History Tobacco Use Types Packs/Day Years [...] 03/19/2025 2:00 PM EDT Office Visit [facility] [address] [place] [address] Raffaele Castillo, DO [address] [place] [address] 07/25/2025 9:30 AM EST Office Visit [facility] [place] [facility] [address] [facility] 110 [place] [address] Adarsh Manrique MD [address] [facility] 110 [place] [address] documented as of this encounter Visit Diagnoses Not on filedocumented in this encounter Care Teams Mechanical Engineering Professor Relationship Specialty Start Date End Date Adarsh Manrique MD [address] [facility] 110 [place] [address] PCP - General Internal Medicine 10/23/22 Adarsh Manrique MD [address] [facility] 110 [place] [address] PCP - ACO Reach 10/22/22 Kelly Nice, JOSE MNAUEL [address] [place] [address] Button Inspector Family Medicine 10/25/24 11/14/24 documented as of this encounter
--- OUTSIDE RECORDS SUMMARY | 2025-03-15 13:10 | XMS_ITS | Clinical Summary ---
Author Organization [facility] Address [address] [facility], [address] [place] [address] Care Team Providers Care Precision Honer Name Role Phone Adarsh Manrique MD Primary Care Provider [phone] Allergies No known active allergies Medications atorvastatin [...] Not on file Insurance RAILRO[employer] MEDICARE [facility] Advance Directives * Full Code (Latest Code Status on File) Date Activated Date Inactivated Comments 11/28/2015 10:12 PM 12/04/2015 8:21 PM Care Teams Precision Honer Relationship Specialty Start Date End Date Adarsh Manrique MD PCP - General Internal Medicine 11/29/15
--- OUTSIDE RECORDS SUMMARY | 2025-03-15 13:10 | XMS_ITS | Encounter Summary ---
Author Organization [facility] Address [address] [place] [address] Care Team Providers Care Screedman Name Role Phone Adarsh Manrique MD Primary Care Provider Adarsh Manrique MD Unavailable [phone] Kelly Nice ENGLISH PROFESSOR Unavailable [phone] Encounter Details Date Type Department Care Team (Late st Contact Info) Description 08/31/2024 Abstract [facility] [place] [facility] [address] [facility] 110 [place] [address] Adarsh Manrique MD 112 [facility] 110 [place], [place] [address] Social History Tobacco Use Types Packs/Day Years [...] 2:00 PM EDT Office Visit [facility] [address] [place] [address] Raffaele Castillo, DO [address] [place] [address] 07/25/2025 9:30 AM EST Office Visit [facility] [place] [facility] [address] [facility] 110 [place] [address] Adarsh Manrique MD [address] [facility] 110 [place] [address] documented as of this encounter Visit Diagnoses Not on filedocumented in this encounter Additional Health Concerns Assessment Noted Time PHQ-9 Depression Total Score: 0 07/27/19 9:00 AM EST documented as of this encounter Care Teams Screedman Relationship Specialty Start Date End Date Adarsh Manrique MD [address] [facility] 110 [place] [address] PCP - General Internal Medicine 10/23/22 Adarsh Manrique MD [address] [facility] 110 [place] [address] PCP - ACO Reach 10/22/22 Kelly Nice, JOSE MANUEL [address] [place] [address] Director Radiation Oncology Family Medicine 10/25/24 11/14/24 documented as of this encounter
--- OUTSIDE RECORDS SUMMARY | 2025-03-15 13:10 | XMS_ITS | Encounter Summary ---
Author Organization [facility] Address [address] [place] [address] Care Team Providers Care Medical Billing And Coding Specialist Name Role Phone Adarsh Manrique MD Primary Care Provider [phone] Adarsh Manrique MD Unavailable [phone] Kelly Nice MIDDLE SCHOOL TECHNOLOGY TEACHER Unavailable [phone] Encounter Details Date Type Department Care Team (Late st Contact Info) Description 06/10/2023 Clinisync Result Encounter NOMS External Department Unsolicited Adarsh Manrique MD 112 [facility] 110 [place] [address] Social History Tobacco Use Types [...] 2:00 PM EDT Office Visit [facility] [address] [place] [address] Raffaele Castillo DO [address] [place] [address] 07/25/2025 9:30 AM EST Office Visit [facility] [place] [facility] 112 [facility] 110 [place] [address] Adarsh Manrique MD 112 [facility] 110 [place] [address] documented as of this encounter Procedures Procedure Name Priority Date/Time Associated Diagnosis Comments CA HOLTER MONITOR 2-7 DAYS 06/10/2023 10:23 AM EST documented in this encounter Results * CA HOLTER MONITOR 2-7 DAYS (06/10/2023 10:23 AM EST) Anatomical Region Laterality Modality Other 06/10/2023 10:2 3 AM EST Narrative 06/12/2023 4:15 [place] [address] Cardiology Report Signed Patient: JEANNETTE BRIGHT MR#: [id number] : 1945 Acct:[id number] Age/Sex: 78 / F ADM Date: 06/01/23 Loc: CARD Attending Dr: ADARSH MANRIQUE Ordering Physician: ADARSH MANRIQUE Date of Service: 06/01/23 Procedure(s): CA holter montior 2-7 days Accession Number(s): [id number] cc: ADARSH MANRIQUE [facility] Test Date: 2023-06-10 Pat Name: JEANNETTE BRIGHT Department: Room: - Gender: Female Special Education Secretary: : 1945 Requested By: ADARSH MANRIQUE Order Number: [id number] Reading MD: RAUL GAY Interpretive Statements Predominant [...] D.O. Signed By: 06/12/23161406/12/231614 DD/ 1023 TD/TT: Ironworker Wire Fence Erector: Procedure Note Radiology, Radiologist, - 06/12/2023 [place] [address] Cardiology Report Signed Patient: JEANNETTE BRIGHT GMR#: [id number] : 1945cct:[id number] Age/Sex: 78 / FADM Date: 06/01/23 Loc: CARD Attending Dr: ADARSH MANRIQUE Ordering Physician: ADARSH MANRIQUE Date of Service: 06/01/23 Procedure(s): CA holter montior 2-7 days Accession Number(s): [id number] cc: ADARSH MANRIQUE [facility] Test Date: 2023-06-10 Pat Name: JEANNETTE BRIGHT Department: Room: - Gender: Female Special Education Secretary: : 1945 Requested By: ADARSH MANRIQUE Order Number: [id number] Reading MD: RAUL GAY Interpretive Statements Predominant [...] Gay D.O. Signed By:06/12/23161406/12/231614 DD/ 1023 TD/TT: Ironworker Wire Fence Erector: Adarsh Manrique MD [facility] Final Result documented in this encounter Visit Diagnoses Not on filedocumented in this encounter Care Teams Medical Billing And Coding Specialist Relationship Specialty Start Date End Date Adarsh Manrique MD [address] [facility] 110 [place] [address] PCP - General Internal Medicine 10/23/22 Adarsh Manrique MD [address] [facility] 110 [place] [address] PCP - ACO Reach 10/22/22 Kelly Nice, MIDDLE SCHOOL TECHNOLOGY TEACHER [address] [place] [address] Timber Cutter Family Medicine 10/25/24 11/14/24 documented as of this encounter
--- OUTSIDE RECORDS SUMMARY | 2025-03-15 13:10 | XMS_ITS | Encounter Summary ---
Author Organization [facility] Address [address] [place] [address], [address] [place] [address] Care Team Providers Care Supervisor Shuttle Preparation Name Role Phone Adarsh Manrique MD Primary Care Provider [phone] Encounter Details Date Type Department Care Team (Late st Contact Info) Description 12/22/2015 FollowUp Telephone Encounter [facility] [address] [address] [address] Hayley Holcomb, RN Social History Tobacco Use [...] on filedocumented in this encounter Care Teams Supervisor Shuttle Preparation Relationship Specialty Start Date End Date Adarsh Manrique MD PCP - General Internal Medicine 11/29/15 documented as of this encounter
--- OUTSIDE RECORDS SUMMARY | 2025-03-15 13:10 | XMS_ITS | Encounter Summary ---
Author Organization [facility] Address [address] [place] [address] Care Team Providers Care Nib Assembler Name Role Phone Adarsh Manrique MD Primary Care Provider Adarsh Manrique MD Unavailable [phone] Kelly Nice CENTRAL OFFICE INSTALLER Unavailable [phone] Encounter Details Date Type Department Care Team (Late st Contact Info) Description 03/09/2023 Orders Only [facility] [address] [facility] [address] [place] [address] Sari Stephen, PROTECTION OFFICER [address] [place] [address] Social History Tobacco Use Types Packs/Day Years [...] 03/19/2025 2:00 PM EDT Office Visit [facility] Eye [address] [place] [address] Raffaele Castillo, DO [address] [place] [address] 07/25/2025 9:30 AM EST Office Visit [facility] [place] [facility] [address] [facility] 110 [place] [address] Adarsh Manrique MD [address] [place] [address] documented as of this encounter Visit Diagnoses Not on filedocumented in this encounter Care Teams Nib Assembler Relationship Specialty Start Date End Date Adarsh Manrique MD [address] [facility] [address] [place] [address] PCP - General Internal Medicine 10/23/22 Adarsh Manrique MD [address] [facility] 110 [place] [address] PCP - ACO Reach 10/22/22 Kelly Nice, JOSE MANUEL [address] [place] [address] Gate Services Supervisor Family Medicine 10/25/24 11/14/24 documented as of this encounter
--- OUTSIDE RECORDS SUMMARY | 2025-03-15 13:10 | XMS_ITS | Encounter Summary ---
Author Organization [facility] Address [address] [place] [address] Care Team Providers Care Trains Dispatcher Supervisor Name Role Phone Adarsh Manrique MD Primary Care Provider [phone] Adarsh Manrique MD Unavailable [phone] Kelly Nice EMPLOYEE RELATIONS ASSISTANT Unavailable [phone] Encounter Details Date Type Department Care Team (Late st Contact Info) Description 06/18/2023 Abstract [facility] [place] [facility] [address] [facility] 110 [place] [address] Adarsh Manrique MD 112 [facility] 110 [place], [place] [address] Social History Tobacco Use Types Packs/Day Years [...] 03/19/2025 2:00 PM EDT Office Visit [facility] Eye [address] [place] [address] Rfafaele Castillo, DO [address] [place] [address] 07/25/2025 9:30 AM EST Office Visit [facility] [place] [facility] [address] [facility] 110 [place] [address] Adarsh Manrique MD [address] [facility] 110 [place] [address] documented as of this encounter Visit Diagnoses Not on filedocumented in this encounter Care Teams Trains Dispatcher Supervisor Relationship Specialty Start Date End Date Adarsh Manrique MD [address] [facility] 110 [place] [address] PCP - General Internal Medicine 10/23/22 Adarsh Manrique MD [address] [facility] 110 [place] [address] PCP - ACO Reach 10/22/22 Kelly Nice, JOSE MANUEL [address] [place] [address] Straightener Hand Family Medicine 10/25/24 11/14/24 documented as of this encounter
--- OUTSIDE RECORDS SUMMARY | 2025-03-15 13:10 | XMS_ITS | Encounter Summary ---
Author Organization [facility] Address [address] [place] [address] Care Team Providers Care Slipper Maker Name Role Phone Adarsh Manrique MD Primary Care Provider [phone] Adarsh Manrique MD Unavailable [phone] Kelly Nice STUDENT RECORDS SPECIALIST Unavailable [phone] Encounter Details Date Type Department Care Team (Late st Contact Info) Description 08/18/2024 Abstract [facility] [place] [facility] 112 [facility] [facility] 110 [place] [address] Adarsh Manrique MD 112 [facility] 110 [place], [place] [address] Social History Tobacco Use Types Packs/Day Years [...] 03/19/2025 2:00 PM EDT Office Visit [facility] [address] [place] [address] Raffaele Castillo, DO [address] [place] [address] 07/25/2025 9:30 AM EST Office Visit [facility] [place] [facility] [address] [facility] 110 [place] [address] Adarsh Manrique MD [address] [facility] 110 [place] [address] documented as of this encounter Visit Diagnoses Not on filedocumented in this encounter Additional Health Concerns Assessment Noted Time PHQ-9 Depression Total Score: 0 07/27/19 9:00 AM EST documented as of this encounter Care Teams Slipper Maker Relationship Specialty Start Date End Date Adarsh Manrique MD [address] [facility] 110 [place] [address] PCP - General Internal Medicine 10/23/22 Adarsh Manrique MD [address] [facility] 110 [place] [address] PCP - ACO Reach 10/22/22 Kelly Nice, JOSE MANUEL [address] [place] [address] Kiln Tender Family Medicine 10/25/24 11/14/24 documented as of this encounter
--- OUTSIDE RECORDS SUMMARY | 2025-03-15 13:10 | XMS_ITS | Encounter Summary ---
Author Organization [facility] Address [address] [place] [address] Care Team Providers Care Estate Tax Examiner Name Role Phone Adarsh Manrique MD Primary Care Provider [phone] Adarsh Manrique MD Unavailable [phone] Kelly Nice LEAD PAINTER Unavailable [phone] Encounter Details Date Type Department Care Team (Late st Contact Info) Description 06/28/2023 Abstract [facility] [place] [facility] [address] [facility] 110 [place] [address] Adarsh Manrique MD 112 [facility] 110 [place], [place] [address] Social History Tobacco Use Types Packs/Day Years [...] 03/19/2025 2:00 PM EDT Office Visit [facility] [address] [place] [address] Raffaele Castillo, DO [address] [place] [address] 07/25/2025 9:30 AM EST Office Visit [facility] [place] [facility] [address] [facility] 110 [place] [address] Adarsh Manrique MD [address] [facility] 110 [place] [address] documented as of this encounter Visit Diagnoses Not on filedocumented in this encounter Care Teams Estate Tax Examiner Relationship Specialty Start Date End Date Adarsh Manrique MD [address] [facility] 110 [place] [address] PCP - General Internal Medicine 10/23/22 Adarsh Manrique MD [address] [facility] 110 [place] [address] PCP - ACO Reach 10/22/22 Kelly Nice, JOSE MANUEL [address] [place] [address] Animal Science Professor Family Medicine 10/25/24 11/14/24 documented as of this encounter
--- OUTSIDE RECORDS SUMMARY | 2025-03-15 13:10 | XMS_ITS | Encounter Summary ---
Author Organization [facility] Address [address] [place] [address] Care Team Providers Care Telecommunications Facility Examiner Name Role Phone Adarsh Manrique MD Primary Care Provider Adarsh Manrique MD Unavailable [phone] Kelly Nice CLINICAL ADVISOR Unavailable [phone] Encounter Details Date Type Department Care Team (Late st Contact Info) Description 09/15/2024 Abstract [facility] [place] [facility] [address] [facility] 110 [place] [address] Adarsh Manrique MD 112 [facility] 110 [place], [place] [address] Social History Tobacco Use Types Packs/Day Years [...] 03/19/2025 2:00 PM EDT Office Visit [facility] [address] [place] [address] Raffaele Castillo, DO [address] [place] [address] 07/25/2025 9:30 AM EST Office Visit [facility] [place] [facility] [address] [facility] 110 [place] [address] Adarsh Manrique MD [address] [facility] 110 [place] [address] documented as of this encounter Visit Diagnoses Not on filedocumented in this encounter Additional Health Concerns Assessment Noted Time PHQ-9 Depression Total Score: 0 07/27/19 9:00 AM EST documented as of this encounter Care Teams Telecommunications Facility Examiner Relationship Specialty Start Date End Date Adarsh Manrique MD [address] [facility] 110 [place] [address] PCP - General Internal Medicine 10/23/22 Adarsh Manrique MD [address] [facility] 110 [place] [address] PCP - ACO Reach 10/22/22 Kelly Nice, JOSE MANUEL [address] [place] [address] Electrician Family Medicine 10/25/24 11/14/24 documented as of this encounter
--- OUTSIDE RECORDS SUMMARY | 2025-03-15 13:10 | XMS_ITS | Encounter Summary ---
Author Organization [facility] Address [address] [place] [address] Care Team Providers Care Sensitizer Name Role Phone Adarsh Manrique MD Primary Care Provider [phone] Adarsh Manrique MD Unavailable [phone] Kelly Nice MACHINE FELLER Unavailable [phone] Encounter Details Date Type Department Care Team (Late st Contact Info) Description 07/04/2024 Orders Only [facility] [place] [facility] [address] [place] [address] Unallocated, Noms Provider, [address] [place], [place] [address] Social History Tobacco Use Types Packs/Day Years [...] 03/19/2025 2:00 PM EDT Office Visit [facility] [address] [place] [address] Raffaele Castillo, DO [address] [place] [address] 07/25/2025 9:30 AM EST Office Visit [facility] [place] [facility] [address] [facility] [address] [place] [address] Adarsh Manrique MD [address] [facility] 110 [place] [address] documented as of this encounter Procedures Procedure Name Priority Date/Time Associated Diagnosis Comments ECG 12-LEAD Routine 07/04/2024 9:04 AM EST documented in this encounter Results * ECG 12 lead (07/04/2024 9:04 AM EST) us Noms Provider Unallocated ECG ORDERABLES Fin al Result documented in this encounter Visit Diagnoses Not on filedocumented in this encounter Care Teams Sensitizer Relationship Specialty Start Date End Date Adarsh Manrique MD [address] [facility] 110 [place] [address] PCP - General Internal Medicine 10/23/22 Adarsh Manrique MD [address] [facility] 110 [place] [address] PCP - ACO Reach 10/22/22 Kelly Nice, MACHINE FELLER [address] [place] [address] Improvement Intern Family Medicine 10/25/24 11/14/24 documented as of this encounter
--- OUTSIDE RECORDS SUMMARY | 2025-03-15 13:10 | XMS_ITS | Clinical Summary ---
Author Organization [facility] Address [id number] [address] [place] [address] Care Team Providers Care Clinical Operations Consultant Name Role Phone Adarsh Manrique MD Primary Care Provider [phone] Allergies No known active allergies Medications aspirin [...] 1965 Fall Risk Screening 2011 COVID-19 Vaccine (2024-2 6 season) 2025 12/24/2021, 05/01/2021, 08/15/2020, Additional history exists Influenza Vaccine 01/29/2025 05/01/2021, , 03/04/2020, Additional history exists Zoster (Shingles) Vaccine Completed 2018, 01/11/2018, 12/31/2014 Medical Devices Not on file Insurance [id number] [address] [facility] MEDICARE Care Teams Clinical Operations Consultant Relationship Specialty Start Date End Date Adarsh Manrique MD [facility] [address] [place] [address] PCP - General Internal Medicine 02/20/22
--- OUTSIDE RECORDS SUMMARY | 2025-03-15 13:10 | XMS_ITS | Encounter Summary ---
Author Organization [facility] Address [address] [place] [address] Care Team Providers Care Changer Fixer Name Role Phone Adarsh Manrique MD Primary Care Provider Adarsh Manrique MD Unavailable [phone] Kelly Nice SPOOL CLEANER Unavailable [phone] Encounter Details Date Type Department Care Team (Late st Contact Info) Description 08/30/2024 Abstract [facility] [place] [facility] [address] [facility] 110 [place] [address] Adarsh Manrique MD 112 [facility] 110 [place], [place] [address] Social History Tobacco Use Types Packs/Day Years [...] 03/19/2025 2:00 PM EDT Office Visit [facility] [address] [place] [address] Raffaele Castillo, DO [address] [place] [address] 07/25/2025 9:30 AM EST Office Visit [facility] [place] [facility] [address] [facility] 110 [place] [address] Adarsh Manrique MD [address] [facility] 110 [place] [address] documented as of this encounter Visit Diagnoses Not on filedocumented in this encounter Additional Health Concerns Assessment Noted Time PHQ-9 Depression Total Score: 0 07/27/19 9:00 AM EST documented as of this encounter Care Teams Changer Fixer Relationship Specialty Start Date End Date Adarsh Manrique MD [address] [facility] 110 [place] [address] PCP - General Internal Medicine 10/23/22 Adarsh Manrique MD [address] [facility] 110 [place] [address] PCP - ACO Reach 10/22/22 Kelly Nice, JOSE MANUEL [address] [place] [address] Plywood Scarfer Tender Family Medicine 10/25/24 11/14/24 documented as of this encounter
--- OUTSIDE RECORDS SUMMARY | 2025-03-15 13:10 | XMS_ITS | Encounter Summary ---
Author Organization [facility] Address [address] [place] [address] Care Team Providers Care Erp Implementation Consultant Name Role Phone Adarsh Manrique MD Primary Care Provider Adarsh Manrique MD Unavailable [phone] Kelly Nice SPECIAL EDUCATION INSTRUCTOR Unavailable [phone] Encounter Details Date Type Department Care Team (Late st Contact Info) Description 06/14/2023 Abstract [facility] [place] [facility] [address] [facility] 110 [place] [phone] Adarsh Manrique MD 112 [facility] 110 [place], [place] [address] Social History Tobacco Use Types Packs/Day Years [...] 03/19/2025 2:00 PM EDT Office Visit [facility] [address] [place] [address] Raffaele Castillo, DO [address] [place] [address] 07/25/2025 9:30 AM EST Office Visit [facility] [place] [facility] [address] [facility] 110 [place] [address] Adarsh Manrique MD [address] [facility] 110 [place] [address] documented as of this encounter Visit Diagnoses Not on filedocumented in this encounter Care Teams Erp Implementation Consultant Relationship Specialty Start Date End Date Adarsh Manrique MD [address] [facility] 110 [place] [address] PCP - General Internal Medicine 10/23/22 dAarsh Manrique MD [address] [facility] 110 [place] [address] PCP - ACO Reach 10/22/22 Kelly Nice, JOSE MANUEL [address] [place] [address] Medical Office Asst Family Medicine 10/25/24 11/14/24 documented as of this encounter
--- OUTSIDE RECORDS SUMMARY | 2025-03-15 13:10 | XMS_ITS | Encounter Summary ---
Author Organization [facility] Address [address] [place] [address] Care Team Providers Care Certified Hearing Instrument Dispenser Name Role Phone Adarsh Manrique MD Primary Care Provider Adarsh Manrique MD Unavailable [phone] Kelly Nice SUMMER CLERK Unavailable [phone] Encounter Details Date Type Department Care Team (Late st Contact Info) Description 06/21/2024 Abstract [facility] [facility] [address] [facility] 110 [place] [address] Adarsh Manrique MD 112 [facility] 110 [place], [place] [address] Social History Tobacco Use Types Packs/Day Years [...] 03/19/2025 2:00 PM EDT Office Visit [facility] [address] [place] [address] Raffaele Castillo, DO [address] [place] [address] 07/25/2025 9:30 AM EST Office Visit [facility] [place] [facility] [address] [facility] 110 [place] [address] Adarsh Manrique MD [address] [facility] 110 [place] [address] documented as of this encounter Visit Diagnoses Not on filedocumented in this encounter Care Teams Certified Hearing Instrument Dispenser Relationship Specialty Start Date End Date Adarsh Manrique MD [address] [facility] 110 [place] [address] PCP - General Internal Medicine 10/23/22 Adarsh Manrique MD [address] [facility] 110 [place] [address] PCP - ACO Reach 10/22/22 Kelly Nice, JOSE MANUEL [address] [place] [address] Core Carrier Family Medicine 10/25/24 11/14/24 documented as of this encounter
--- OUTSIDE RECORDS SUMMARY | 2025-03-15 13:10 | XMS_ITS | Encounter Summary ---
Author Organization [facility] Address [address] [place] [address] Care Team Providers Care Inspector Eyeglass Name Role Phone Adarsh Manrique MD Primary Care Provider [phone] Adarsh Manrique MD Unavailable [phone] Kelly Nice CLINICAL NURSE Unavailable [phone] Encounter Details Date Type Department Care Team (Late st Contact Info) Description 06/17/2023 Abstract [facility] [place] [facility] [address] [facility] 110 [place] [address] Adarsh Manrique MD 112 [facility] 110 [place], [place] [address] Social History Tobacco Use Types Packs/Day Years [...] 03/19/2025 2:00 PM EDT Office Visit [facility] Eye [address] [place] [address] Raffaele Castillo, DO [address] [place] [address] 07/25/2025 9:30 AM EST Office Visit [facility] [place] [facility] [address] [facility] 110 [place] [address] Adarsh Manrique MD [address] [facility] 110 [place] [address] documented as of this encounter Visit Diagnoses Not on filedocumented in this encounter Care Teams Inspector Eyeglass Relationship Specialty Start Date End Date Adarsh Manrique MD [address] [facility] 110 [place] [address] PCP - General Internal Medicine 10/23/22 Adarsh Manrique MD [address] [facility] 110 [place] [address] PCP - ACO Reach 10/22/22 Kelly Nice, JOSE MANUEL [address] [place] [address] Aerodynamics Engineer Family Medicine 10/25/24 11/14/24 documented as of this encounter
--- OUTSIDE RECORDS SUMMARY | 2025-03-15 13:10 | XMS_ITS | Encounter Summary ---
Author Organization [facility] Address [address] [place] [address] Care Team Providers Care Steamer Gum Candy Name Role Phone Adarsh Manrique MD Primary Care Provider Adarsh Manrique MD Unavailable [phone] Kelly Nice FBI SHARPSHOOTER Unavailable [phone] Encounter Details Date Type Department Care Team (Late st Contact Info) Description 07/03/2024 Abstract [facility] [place] [facility] [address] [facility] 110 [place] [address] Adarsh Manrique MD [address] [facility] 110 [place], [place] [address] Social History Tobacco Use Types Packs/Day Years [...] 03/19/2025 2:00 PM EDT Office Visit [facility] Eye [address] [place] [address] Raffaele Castillo, DO [address] [place] [address] 07/25/2025 9:30 AM EST Office Visit [facility] [place] [facility] [address] [facility] 110 [place] [address] Adarsh Manrique MD [address] [facility] 110 [place] [address] documented as of this encounter Visit Diagnoses Not on filedocumented in this encounter Care Teams Steamer Gum Candy Relationship Specialty Start Date End Date Adarsh Manrique MD [address] [facility] 110 [place] [address] PCP - General Internal Medicine 10/23/22 Adarsh Manrique MD [address] [facility] 110 [place] [address] PCP - ACO Reach 10/22/22 Kelly Nice, JOSE MANUEL [address] [place] [address] Canvas Worker Family Medicine 10/25/24 11/14/24 documented as of this encounter
--- OUTSIDE RECORDS SUMMARY | 2025-03-15 13:10 | XMS_ITS | Encounter Summary ---
Author Organization [facility] Address [address] [place] [address] Care Team Providers Care Dewaterer Operator Name Role Phone Adarsh Manrique MD Primary Care Provider Adarsh Manrique MD Unavailable [phone] Kelly Nice PUBLICATION DESIGNER Unavailable [phone] Encounter Details Date Type Department Care Team (Late st Contact Info) Description 06/16/2023 Orders Only [facility] [place] [facility] 112 [facility] 110 [place] [address] A, Unknown Practice [address] [phone] Social History Tobacco Use Types Packs/Day Years [...] 03/19/2025 2:00 PM EDT Office Visit [facility] Eye [address] [place] [address] Raffaele Castillo, DO [address] [place] [address] 07/25/2025 9:30 AM EST Office Visit [facility] [place] [facility] [address] [facility] 110 [place] [address] Adarsh Manrique MD [address] [facility] 110 [place] [address] documented as of this encounter Procedures Procedure [...] on filedocumented in this encounter Care Teams Dewaterer Operator Relationship Specialty Start Date End Date Adarsh Manrique MD [address] [facility] 110 [place] [address] PCP - General Internal Medicine 10/23/22 Adarsh Manrique MD [address] [facility] 110 [place] [address] PCP - ACO Reach 10/22/22 Kelly Nice, PUBLICATION DESIGNER [address] [place] [address] Lead Janitor Family Medicine 10/25/24 11/14/24 documented as of this encounter
--- OUTSIDE RECORDS SUMMARY | 2025-03-15 13:11 | XMS_ITS | Encounter Summary ---
Author Organization [facility] Address [address] [place] [address] Care Team Providers Care Service Station Helper Name Role Phone Adarsh Manrique MD Primary Care Provider [phone] Adarsh Manrique MD Unavailable [phone] Kelly Nice INTERACTIVE MEDIA DIRECTOR Unavailable [phone] Encounter Details Date Type Department Care Team (Late st Contact Info) Description 07/04/2024 Abstract [facility] [place] [facility] [address] [facility] 110 [place] [address] Adarsh Manrique MD 112 [facility] 110 [place], [place] [address] Social History Tobacco Use Types Packs/Day Years [...] [facility] [address] [place] [address] Raffaele Castilol, DO [address] [place] [address] 07/25/2025 9:30 AM EST Office Visit [facility] [place] [facility] [address] [facility] 110 [place] [address] Adarsh Manrique MD [address] [facility] 110 [place] [address] documented as of this encounter Visit Diagnoses Not on filedocumented in this encounter Care Teams Service Station Helper Relationship Specialty Start Date End Date Adarsh Manrique MD [address] [facility] 110 [place] [address] PCP - General Internal Medicine 10/23/22 Adarsh Manrique MD [address] [facility] 110 [place] [address] PCP - ACO Reach 10/22/22 Kelly Nice, JOSE MANUEL [address] [place] [address] Salary And Wage Administrator Family Medicine 10/25/24 11/14/24 documented as of this encounter
--- OUTSIDE RECORDS SUMMARY | 2025-03-15 13:11 | XMS_ITS | Encounter Summary ---
Author Organization [facility] Address [address] [place] [address] Care Team Providers Care Box Inspector Name Role Phone Adarsh Manrique MD Primary Care Provider Adarsh Manrique MD Unavailable [phone] Kelly Nice MANAGER PERSONNEL SELECTION Unavailable [phone] Encounter Details Date Type Department Care Team (Late st Contact Info) Description 07/16/2023 Orders Only [facility] [place] [facility] 112 [facility] 110 [place] [address] A, Unknown Practice [address] [phone] Social History Tobacco Use Types Packs/Day Years [...] 03/19/2025 2:00 PM EDT Office Visit [facility] Eye [address] [place] [address] Raffaele Castillo, DO [address] [place] [address] 07/25/2025 9:30 AM EST Office Visit [facility] [place] [facility] [address] [facility] [place] [address] Adarsh Manrique MD [address] [facility] [address] [place] [address] documented as of this encounter Procedures Procedure [...] on filedocumented in this encounter Care Teams Box Inspector Relationship Specialty Start Date End Date Adarsh Manrique MD [address] [address] [place] [address] PCP - General Internal Medicine 10/23/22 Adarsh Manrique MD [address] [facility] 110 [place] [address] PCP - ACO Reach 10/22/22 Kelly Nice, MANAGER PERSONNEL SELECTION [address] [facility] [place] [address] Ski Instructor Family Medicine 10/25/24 11/14/24 documented as of this encounter
--- OUTSIDE RECORDS SUMMARY | 2025-03-15 13:11 | XMS_ITS | Encounter Summary ---
Author Organization [facility] Address [address] [place] [address] Care Team Providers Care Electronics Recycler Name Role Phone Adarsh Manrique MD Primary Care Provider Adarsh Manrique MD Unavailable [phone] Kelly Nice MILK BOTTLER Unavailable [phone] Encounter Details Date Type Department Care Team (Late st Contact Info) Description 08/07/2024 Abstract [facility] [place] [facility] [address] [facility] 110 [place] [address] Adarsh Manrique MD 112 [facility] 110 [place], [place] [address] Social History Tobacco Use Types Packs/Day Years [...] 03/19/2025 2:00 PM EDT Office Visit [facility] [address] [place] [address] Raffaele Castillo, DO [address] [place] [address] 07/25/2025 9:30 AM EST Office Visit [facility] [place] [facility] [address] [facility] 110 [place] [address] Adarsh Manrique MD [address] [facility] 110 [place] [address] documented as of this encounter Visit Diagnoses Not on filedocumented in this encounter Additional Health Concerns Assessment Noted Time PHQ-9 Depression Total Score: 0 07/27/19 9:00 AM EST documented as of this encounter Care Teams Electronics Recycler Relationship Specialty Start Date End Date Adarsh Manrique MD [address] [facility] 110 [place] [address] PCP - General Internal Medicine 10/23/22 Adarsh Manrique MD [address] [facility] 110 [place] [address] PCP - ACO Reach 10/22/22 Kelly Nice, JOSE MANUEL [address] [place] [address] Cylinder Block Mechanic Family Medicine 10/25/24 11/14/24 documented as of this encounter
--- OUTSIDE RECORDS SUMMARY | 2025-03-15 13:11 | XMS_ITS | Encounter Summary ---
Author Organization [facility] Address [address] [place] [address] Care Team Providers Care Fondant Puff Maker Name Role Phone Adarsh Manrique MD Primary Care Provider [phone] Adarsh Manrique MD Unavailable [phone] Kelly Nice MUSIC GRAPHER Unavailable [phone] Encounter Details Date Type Department Care Team (Late st Contact Info) Description 07/27/2024 Abstract [facility] [place] [facility] [address] [facility] 110 [place] [address] Adarsh Manrique MD 112 [facility] 110 [place], [place] [address] Social History Tobacco Use Types Packs/Day Years [...] 03/19/2025 2:00 PM EDT Office Visit [facility] Eye [address] [place] [address] Raffaele Castillo, DO [address] [place] [address] 07/25/2025 9:30 AM EST Office Visit [facility] [place] [facility] [address] [facility] 110 [place] [address] Adarsh Manrique MD [address] [facility] 110 [place] [address] documented as of this encounter Visit Diagnoses Not on filedocumented in this encounter Additional Health Concerns Assessment Noted Time PHQ-9 Depression Total Score: 0 07/27/19 25 9:00 AM EST documented as of this encounter Care Teams Fondant Puff Maker Relationship Specialty Start Date End Date Adarsh Manrique MD [address] [facility] 110 [place] [address] PCP - General Internal Medicine 10/23/22 Adarsh Manrique MD [address] [facility] 110 [place] [address] PCP - ACO Reach 10/22/22 Kelly Nice, JOSE MANUEL [address] [place] [address] President [employer] Family Medicine 10/25/24 11/14/24 documented as of this encounter
--- OUTSIDE RECORDS SUMMARY | 2025-03-15 13:11 | XMS_ITS | Encounter Summary ---
Author Organization [facility] Address [address] [place] [address] Care Team Providers Care Bottle And Glass Inspector Name Role Phone Adarsh Manrique MD Primary Care Provider [phone] Adarsh Manrique MD Unavailable [phone] Kelly Nice MACHINE SEWER Unavailable [phone] Encounter Details Date Type Department Care Team (Late st Contact Info) Description 07/19/2023 Orders Only [facility] [place] [facility] 112 [facility] 110 [place] [address] A, Unknown Practice [address] [phone] Social History Tobacco Use Types Packs/Day Years [...] 03/19/2025 2:00 PM EDT Office Visit [facility] Eye [address] [place] [address] Raffaele Castillo, DO [address] [place] [address] 07/25/2025 9:30 AM EST Office Visit [facility] [place] [facility] [address] [facility] [address] [place] [address] Adarsh Manrique MD [address] [email or web address] [address] [place] [address] documented as of this encounter Procedures Procedure Name Priority Date/Time Associated Diagnosis Comments SCANNED LABS Routine 07/15/2023 3:31 PM EST documented in this encounter Results * SCANNED LABS (07/15/2023 3:31 PM EST) us Unknown Practice A LAB CHG PERFORMABLES Final Re sult documented in this encounter Visit Diagnoses Not on filedocumented in this encounter Care Teams Bottle And Glass Inspector Relationship Specialty Start Date End Date Adarsh Manrique MD [address] [email or web address] [address] [place] [address] PCP - General Internal Medicine 10/23/22 Adarsh Manrique MD [address] [email or web address] [address] [place] [address] PCP - ACO Reach 10/22/22 eKlly Nice, MACHINE SEWER [address] [place] [address] Flight Follower Family Medicine 10/25/24 11/14/24 documented as of this encounter
--- OUTSIDE RECORDS SUMMARY | 2025-03-15 13:11 | XMS_ITS | Encounter Summary ---
Author Organization [facility] Address [address] [place] [address] Care Team Providers Care Merchandising Stock Associate Name Role Phone Adarsh Manrique MD Primary Care Provider Adarsh Manrique MD Unavailable [phone] Kelly Nice WEB GRAPHIC DESIGNER Unavailable [phone] Encounter Details Date Type Department Care Team (Late st Contact Info) Description 12/30/2023 Orders Only [facility] [place] [facility] [address] [facility] 110 [place] [address] Ama Garcia LPN [address] [place] [address] Chronic pain of left knee; ORTIZ (dyspnea [...] 03/19/2025 2:00 PM EDT Office Visit [facility] [address] [place] [address] Raffaele Castillo, DO [address] [place] [address] 07/25/2025 9:30 AM EST Office Visit [facility] [place] [facility] [address] [email or web address] 110 [place] [address] Adarsh Manrique MD [address] [facility] 110 [place] [address] documented as of this encounter Visit Diagnoses Diagnosis Chronic pain of left knee ORTIZ (dyspnea on exertion) Other dyspnea and respiratory abnormality documented in this encounter Care Teams Merchandising Stock Associate Relationship Specialty Start Date End Date Adarsh Manrique MD [address] [facility] 110 [place] [address] PCP - General Internal Medicine 10/23/22 Adarsh Manrique MD [address] [facility] 110 [place] [address] PCP - ACO Reach 10/22/22 Kelly Nice, JOSE MANUEL [address] [place] [address] Educational Adviser Family Medicine 10/25/24 11/14/24 documented as of this encounter
--- OUTSIDE RECORDS SUMMARY | 2025-03-15 13:11 | XMS_ITS | Encounter Summary ---
Author Organization [facility] Address [address] [place] [address] Care Team Providers Care Production Clerk Name Role Phone Adarsh Manrique MD Primary Care Provider Adarsh Manrique MD Unavailable [phone] Kelly Nice CHEMICAL DEPENDENCY PROFESSIONAL Unavailable [phone] Encounter Details Date Type Department Care Team (Late st Contact Info) Description 06/12/2024 Abstract [facility] [place] [facility] [address] [facility] 110 [place] [address] Adarsh Manrique MD 112 [facility] 110 [place], [place] [address] Social History Tobacco Use Types Packs/Day Years [...] 03/19/2025 2:00 PM EDT Office Visit [facility] Eye [address] [place] [address] Raffaele Castillo, DO [address] [place] [address] 07/25/2025 9:30 AM EST Office Visit [facility] [place] [facility] [address] [facility] [address] [place] [address] Adarsh Manrique MD [address] [facility] 110 [place] [address] documented as of this encounter Visit Diagnoses Not on filedocumented in this encounter Care Teams Production Clerk Relationship Specialty Start Date End Date Adarsh Manrique MD [address] [facility] 110 [place] [address] PCP - General Internal Medicine 10/23/22 Adarsh Manrique MD [address] [facility] 110 [place] [address] PCP - ACO Reach 10/22/22 Kelly Nice, JOSE MANUEL [address] [place] [address] Brand Advocate Family Medicine 10/25/24 11/14/24 documented as of this encounter
--- OUTSIDE RECORDS SUMMARY | 2025-03-15 13:11 | XMS_ITS | Encounter Summary ---
Author Organization [facility] Address [address] [place] [address] Care Team Providers Care Postdoctoral Research Associate Name Role Phone Adarsh Manrique MD Primary Care Provider [phone] Adarsh Manrique MD Unavailable [phone] Kelly Nice STAINED GLASS PAINTER Unavailable [phone] Encounter Details Date Type Department Care Team (Late st Contact Info) Description 08/16/2024 Abstract [facility] [place] [facility] [address] [facility] 110 [place] [address] Adarsh Manrique MD 112 [facility] 110 [place], [place] [address] Social History Tobacco Use Types Packs/Day Years [...] PM EDT Office Visit [facility] [address] [place] [address] Raffaele Castillo, DO [address] [place] [address] 07/25/2025 9:30 AM EST Office Visit [facility] [place] [facility] [address] [facility] 110 [place] [address] Adarsh Manrique MD [address] [facility] 110 [place] [address] documented as of this encounter Visit Diagnoses Not on filedocumented in this encounter Additional Health Concerns Assessment Noted Time PHQ-9 Depression Total Score: 0 07/27/19 9:00 AM EST documented as of this encounter Care Teams Postdoctoral Research Associate Relationship Specialty Start Date End Date Adarsh Manrique MD [address] [facility] 110 [place] [address] PCP - General Internal Medicine 10/23/22 Adarsh Manrique MD [address] [facility] 110 [place] [address] PCP - ACO Reach 10/22/22 Kelly Nice, JOSE MANUEL [address] [place] [address] Dog Boarder Family Medicine 10/25/24 11/14/24 documented as of this encounter
--- OUTSIDE RECORDS SUMMARY | 2025-03-15 13:11 | XMS_ITS | Encounter Summary ---
Author Organization [facility] Address [address] [place] [address] Care Team Providers Care Senior Marketing Associate Name Role Phone Adarsh Manrique MD Primary Care Provider Adarsh Manrique MD Unavailable [phone] Kelly Nice BARREL HEADER Unavailable [phone] Encounter Details Date Type Department Care Team (Late st Contact Info) Description 06/28/2023 Abstract [facility] [place] [facility] [address] [facility] 110 [place] [address] Adarsh Manrique MD 112 [facility] 110 [place], [place] [phone] Social History Tobacco Use Types Packs/Day Years [...] 03/19/2025 2:00 PM EDT Office Visit [facility] Eye [address] [place] [address] Raffaele Castillo, DO [address] [place] [address] 07/25/2025 9:30 AM EST Office Visit [facility] [place] [facility] [address] [facility] [address] [place] [address] Adarsh Manrique MD [address] [facility] 110 [place] [address] documented as of this encounter Visit Diagnoses Not on filedocumented in this encounter Care Teams Senior Marketing Associate Relationship Specialty Start Date End Date Adarsh Manrique MD [address] [facility] 110 [place] [address] PCP - General Internal Medicine 10/23/22 Adarsh Manrique MD [address] [facility] 110 [place] [address] PCP - ACO Reach 10/22/22 Kelly Nice, JOSE MANUEL [address] [place] [address] Counter Attendant Family Medicine 10/25/24 11/14/24 documented as of this encounter
--- OUTSIDE RECORDS SUMMARY | 2025-03-15 13:11 | XMS_ITS | Encounter Summary ---
Author Organization [facility] Address [address] [place] [address] Care Team Providers Care Marshmallow Machine Operator Name Role Phone Adarsh Manrique MD Primary Care Provider Adarsh Manrique MD Unavailable [phone] Kelly Nice GRAVITY PROSPECTING OPERATOR Unavailable [phone] Encounter Details Date Type Department Care Team (Late st Contact Info) Description 06/12/2024 Abstract [facility] [place] [facility] [address] [facility] 110 [place] [address] Adarsh Manrique MD 112 [facility] 110 [place], [place] [id number] Social History Tobacco Use Types Packs/Day Years [...] 03/19/2025 2:00 PM EDT Office Visit [facility] [address] [place] [address] Raffaele Castillo, DO [address] [place] [address] 07/25/2025 9:30 AM EST Office Visit [facility] [place] [facility] [address] [facility] 110 [place] [address] Adarsh Manrique MD [address] [facility] 110 [place] [address] documented as of this encounter Visit Diagnoses Not on filedocumented in this encounter Care Teams Marshmallow Machine Operator Relationship Specialty Start Date End Date Adarsh Manrique MD [address] [facility] 110 [place] [address] PCP - General Internal Medicine 10/23/22 Adarsh Manrique MD [address] [facility] 110 [place] [address] PCP - ACO Reach 10/22/22 Kelly Nice, JOSE MANUEL [address] [place] [address] Bottom Liner Family Medicine 10/25/24 11/14/24 documented as of this encounter
--- OUTSIDE RECORDS SUMMARY | 2025-03-15 13:11 | XMS_ITS | Encounter Summary ---
Author Organization [facility] Address [address] [place] [address] Care Team Providers Care Crewman Armoured Personnel Carrier M113 Name Role Phone Adarsh Manrique MD Primary Care Provider [phone] Adarsh Manrique MD Unavailable [phone] Kelly Nice S[employer]OL [employer] Unavailable [phone] Encounter Details Date Type Department Care Team (Late st Contact Info) Description 06/29/2023 Orders Only [facility] [place] [facility] [address] [place] [address] Unallocated, Noms Provider, [address] [place], [place] [address] Social History Tobacco Use Types Packs/Day Years [...] 03/19/2025 2:00 PM EDT Office Visit [facility] Eye [address] [place] [address] Raffaele Castillo, DO [address] [place] [address] 07/25/2025 9:30 AM EST Office Visit [facility] [place] [address] [facility] 110 [place] [address] Adarsh Manrique MD [address] [facility] 110 [place] [address] documented as of this encounter Procedures Procedure [...] on filedocumented in this encounter Care Teams Crewman Armoured Personnel Carrier M113 Relationship Specialty Start Date End Date Adarsh Manrique MD [address] [facility] 110 [place] [address] PCP - General Internal Medicine 10/23/22 Adarsh Manrique MD [address] [facility] 110 [place] [address] PCP - ACO Reach 10/22/22 Kelly Nice, [employer]OOK [address] [place] [address] International Sales Representative Family Medicine 10/25/24 11/14/24 documented as of this encounter
--- OUTSIDE RECORDS SUMMARY | 2025-03-15 13:11 | XMS_ITS | Encounter Summary ---
Author Organization [facility] Address [address] [place] [address] Care Team Providers Care Consolidator Name Role Phone Adarsh Manrique MD Primary Care Provider Adarsh Manrique MD Unavailable [phone] Kelly Nice PINSETTER MECHANIC HELPER Unavailable [phone] Encounter Details Date Type Department Care Team (Late st Contact Info) Description 07/04/2024 Abstract [facility] [place] [facility] [address] [facility] 110 [place] [address] Adarsh Manrique MD 112 [facility] 110 [place], [place] [address] Social History Tobacco Use Types Packs/Day Years [...] 03/19/2025 2:00 PM EDT Office Visit [facility] [address] [place] [address] Raffaele Castillo, DO [address] [place] [address] 07/25/2025 9:30 AM EST Office Visit [facility] [place] [address] [facility] 110 [place] [address] Adarsh Manrique MD [address] [facility] 110 [place] [address] documented as of this encounter Visit Diagnoses Not on filedocumented in this encounter Care Teams Consolidator Relationship Specialty Start Date End Date Adarsh Manrique MD [address] [facility] 110 [place] [address] PCP - General Internal Medicine 10/23/22 Adarsh Manrique MD [address] [facility] 110 [place] [address] PCP - ACO Reach 10/22/22 Kelly Nice, JOSE MANUEL [address] [place] [address] Auction Block Clerk Family Medicine 10/25/24 11/14/24 documented as of this encounter
--- OUTSIDE RECORDS SUMMARY | 2025-03-15 13:11 | XMS_ITS | Encounter Summary ---
Author Organization [facility] Address [address] [place] [address] Care Team Providers Care Wheel Shop Supervisor Name Role Phone Adarsh Manrique MD Primary Care Provider [phone] Adarsh Manrique MD Unavailable [phone] Kelly Nice GOLF BALL MOLDER Unavailable [phone] Encounter Details Date Type Department Care [...] 03/19/2025 2:00 PM EDT Office Visit [facility] Eye [address] [place] [address] [place] [address] Raffaele Castillo, DO [address] [place] [address] 07/25/2025 9:30 AM EST Office Visit [facility] [place] [facility] 112 [facility] 110 [place] [address] Adarsh Manrique MD [address] [place] 110 [place] [address] documented as of this encounter Procedures Procedure Name Priority Date/Time Associated Diagnosis Comments CA ECHO DOPPLER COMPLETE 07/14/2023 8:02 PM EST documented in this encounter Results * CA ECHO DOPPLER COMPLETE (07/14/2023 8:02 PM EST) Anatomical Region Laterality Modality Other 07/14/2023 8:02 PM EST Narrative 07/14/2023 8:02 PM EST The [address] [address] Cardiology Report Signed Patient: MAVIS BRIGHT MR#: [id number] : 1945 Acct:[id number] Age/Sex: 78 / F ADM Date: 07/14/23 Loc: CARD Attending Dr: CONNER VALERIO Ordering Physician: CONNER VALERIO Date of Service: 07/14/23 Procedure(s): CA echo doppler complete Accession Number(s): [id number] cc: CONNER VALERIO; ADARSH MANRIQUE Patient Name: MAVIS BRIGHT MR#: [id number] : 1945 Exam Date: 07/14/2023 Ordering Doctor: [...] SWENSON Signed By: 07/14/232001 DD/ 01 TD/TT: Rewinder: Procedure Note Radiology, Radiologist, MD - 07/14/2023 [place] [address] Cardiology Report Signed Patient: MAVIS BRIGHT GMR#: [id number] : 1945cct:[id number] Age/Sex: 78 / FADM Date: 07/14/23 Loc: CARD Attending Dr: CONNER VALERIO Ordering Physician: CONNER VALERIO Date of Service: 07/14/23 Procedure(s): CA echo doppler complete Accession Number(s): [id number] cc: CONNER VALERIO; ADARSH MANRIQUE Patient Name: MAVIS BRIGHT MR#: [id number] : 1945 Exam Date: 07/14/2023 Ordering Doctor: [...] ANDREA SWENSON Signed By:07/14/232001 DD/ 01 TD/TT: Rewinder: us Generic External Data Provider [facility] Final Result documented in this encounter Visit Diagnoses Not on filedocumented in this encounter Care Teams Wheel Shop Supervisor Relationship Specialty Start Date End Date Adarsh Manrique MD [address] [facility] 110 [place] [address] PCP - General Internal Medicine 10/23/22 Adarsh Manrique MD [address] [address] PCP - ACO Reach 10/22/22 Kelly Nice, JOSE MANUEL [address] [place] [address] Weighter Family Medicine 10/25/24 11/14/24 documented as of this encounter
--- OUTSIDE RECORDS SUMMARY | 2025-03-15 13:11 | XMS_ITS | Encounter Summary ---
Author Organization [facility] Address [address] [place] [address], [address] [place] [address] Care Team Providers Care Radar Repairer Name Role Phone Adarsh Manrique MD Primary Care Provider [phone] Encounter Details Date Type Department Care Team (Late st Contact Info) Description 12/15/2015 FollowUp Telephone Encounter [facility] [address] [address] Hayley Holcomb, RN Social History Tobacco Use [...] on filedocumented in this encounter Care Teams Radar Repairer Relationship Specialty Start Date End Date Adarsh Manrique MD PCP - General Internal Medicine 11/29/15 documented as of this encounter
--- OUTSIDE RECORDS SUMMARY | 2025-03-15 13:11 | XMS_ITS | Encounter Summary ---
Author Organization [facility] Address [address] [place] [address] Care Team Providers Care Cops Name Role Phone Adarsh Manrique MD Primary Care Provider [phone] Adarsh Manrique MD Unavailable [phone] Kelly Niec RN POOL Unavailable [phone] Encounter Details Date Type Department Care Team (Late st Contact Info) Description 08/16/2024 Abstract [facility] [place] [facility] [address] [facility] 110 [place] [address] Adarsh Manrique MD 112 [facility] 110 [place], [place] [address] Social History Tobacco Use Types Packs/Day Years [...] [place] [address] [place] [address] Raffaele Castillo, DO [address] [place] [address] 07/25/2025 9:30 AM EST Office Visit [facility] [place] [facility] [address] [facility] 110 [place] [address] Adarsh Manrique MD [address] [facility] 110 [place] [address] documented as of this encounter Visit Diagnoses Not on filedocumented in this encounter Additional Health Concerns Assessment Noted Time PHQ-9 Depression Total Score: 0 07/27/19 9:00 AM EST documented as of this encounter Care Teams Cops Relationship Specialty Start Date End Date Adarsh Manrique MD [address] [facility] 110 [place] [address] PCP - General Internal Medicine 10/23/22 Adarsh Manrique MD [address] [facility] 110 [place] [address] PCP - ACO Reach 10/22/22 Kelly Nice, JOSE MANUEL [address] [place] [address] Logistics Program Manager Family Medicine 10/25/24 11/14/24 documented as of this encounter
--- OUTSIDE RECORDS SUMMARY | 2025-03-15 13:11 | XMS_ITS | Clinical Summary ---
Author Organization [facility] Address [address] [place] [address] Phone Care Team Providers Care Blown Film Extrusion Operator Name Role Phone Unavailable Primary Care [...]
--- OUTSIDE RECORDS SUMMARY | 2025-03-15 13:11 | XMS_ITS | Encounter Summary ---
Author Organization [facility] Address [address] [place] [address] Care Team Providers Care Verification Lead Name Role Phone Adarsh Manrique MD Primary Care Provider [phone] Adarsh Manrique MD Unavailable [phone] Kelly Nice PLUG SAW OPERATOR Unavailable [phone] Encounter Details Date Type Department Care Team (Late st Contact Info) Description 12/28/2023 Abstract [facility] [place] [facility] [address] [facility] 110 [place] [address] Adarsh Manrique MD 112 [facility] 110 [place], [place] [address] Social History Tobacco Use Types Packs/Day Years [...] 03/19/2025 2:00 PM EDT Office Visit [facility] Eye [address] [place] [address] Raffaele Castillo, DO [address] [place] [address] 07/25/2025 9:30 AM EST Office Visit [facility] [place] [address] [facility] 110 [place] [address] Adarsh Manrique MD [address] [facility] 110 [place] [address] documented as of this encounter Visit Diagnoses Not on filedocumented in this encounter Care Teams Verification Lead Relationship Specialty Start Date End Date Adarsh Manrique MD [address] [facility] 110 [place] [address] PCP - General Internal Medicine 10/23/22 Adarsh Manrique MD [address] [facility] 110 [place] [address] PCP - ACO Reach 10/22/22 Kelly Nice, JOSE MANUEL [address] [place] [address] Fashion Director Party Plan Sales Family Medicine 10/25/24 11/14/24 documented as of this encounter
--- OUTSIDE RECORDS SUMMARY | 2025-03-15 13:11 | XMS_ITS | Encounter Summary ---
Author Organization [facility] Address [address] [place] [address] Care Team Providers Care Citrix Engineer Name Role Phone Adarsh Manrique MD Primary Care Provider [phone] Adarsh Manrique MD Unavailable [phone] Kelly Nice NURSING HOME ASSISTANT Unavailable [phone] Encounter Details Date Type Department Care [...] 03/19/2025 2:00 PM EDT Office Visit [facility] Eye [address] [place] [address] Raffaele Castillo, DO [address] [place] [address] 07/25/2025 9:30 AM EST Office Visit [facility] [place] [facility] 112 [facility] [place] 110 [place] [address] Adarsh Manrique MD [address] [place] [address] [place] [address] documented as of this encounter Procedures Procedure Name Priority Date/Time Associated Diagnosis Comments ECG 12-LEAD 06/28/2023 12:56 PM EST documented in this encounter Results * ECG 12-LEAD (06/28/2023 12:56 PM EST) Anatomical Region Laterality Modality Other 06/28/2023 12:5 6 PM EST Narrative 06/28/2023 7:57 PM EST The [address] [address] Electrocardiograph Report Signed Patient: JEANNETTE BRIGHT MR#: [id number] : 1945 Acct:[id number] Age/Sex: 78 / F ADM Date: 06/28/23 Loc: PST Attending Dr: Keerthi Trujillo M.D. Ordering Physician: Keerthi Trujillo M.D. 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 Signed By: 06/28/231956 DD/ 1256 TD/TT: Computer Numerical Control Programmer: Procedure Note Radiology, Radiologist, - 06/28/[address] [address] Electrocardiograph Report Signed Patient: JEANNETTE BRIGHT GMR#: [id number] : 6Acct:[id number] Age/Sex: 78 / FADM Date: 06/28/23 Loc: PST Attending Dr: Keerthi Trujillo M.D. Ordering Physician: Keerthi Trujillo M.D. Date of Service: 06/28/23 Procedure(s): ECG 12 lead Accession Number(s): [id number] cc: The [facility] Test Date: 2023-06-28 Pat Name: JEANNETTE BRIGHT Department: Room: - Gender: Female Features Reporter: : 1945 Requested By: ADARSH MANRIQUE Order Number: [id number] Reading MD: RAUL GAY Measurements Intervals [place] Rate: 56 P: 37 WA: 147 QRS: -25 QRSD: 93 T: 2 QT: 440 QTc: 428 Interpretive Statements SINUS BRADYCARDIA INFERIOR MYOCARDIAL INFARCTION [40+ ms Q WAVE AND/OR ST/T ABNORMALITY IN II/aVF], PROBABLY OLD Compared to ECG 01/15/2021 14:00:24 Sinus rhythm no longer present Myocardial infarct finding still present Electronically Signed On 06-28-2023 19:57:44 EST by RAUL GAY Dictated By: Raul Gay D.O. Signed By:06/28/231956 DD/ 1256 TD/TT: Computer Numerical Control Programmer: Generic External Data Provider [facility] Final Result documented in this encounter Visit Diagnoses Not on filedocumented in this encounter Care Teams Citrix Engineer Relationship Specialty Start Date End Date Adarsh Manrique MD [address] [facility] 110 [place] [address] PCP - General Internal Medicine 10/23/22 Adarsh Manrique MD [address] [place] [address] [place] [address] PCP - ACO Reach 10/22/22 Kelly Nice, JOSE MANUEL [address] [place] [address] Abnormal Psychology Teacher Family Medicine 10/25/24 11/14/24 documented as of this encounter
--- OUTSIDE RECORDS SUMMARY | 2025-03-15 13:11 | XMS_ITS | Encounter Summary ---
Author Organization [facility] Address [address] [place] [address] Care Team Providers Care Electric Motor And Generator Assembler Name Role Phone Adarsh Manrique MD Primary Care Provider [phone] Adarsh Manrique MD Unavailable [phone] Kelly Nice NEONATAL CRITICAL CARE NURSE Unavailable [phone] Encounter Details Date Type Department Care Team (Late st Contact Info) Description 06/19/2024 Orders Only [facility] [place] [facility] [address] [place] [address] Unallocated, Noms Provider, [address] [place], [place] [address] Social History Tobacco Use Types Packs/Day Years [...] 03/19/2025 2:00 PM EDT Office Visit [facility] Eye [address] [place] [address] Raffaele Castillo, DO [address] [place] [address] 07/25/2025 9:30 AM EST Office Visit [facility] [place] [facility] 112 [facility] 110 [place] [address] Adarsh Manrique MD 112 [facility] [address] [place] [address] documented as of this encounter Procedures Procedure [...] filedocumented in this encounter Care Teams Electric Motor And Generator Assembler Relationship Specialty Start Date End Date Adarsh Manrique MD [address] [facility] [address] [place] [address] PCP - General Internal Medicine 10/23/22 Adarsh Manrique MD [address] [facility] [address] [place] [address] PCP - ACO Reach 10/22/22 Kelly Nice, JOSE MANUEL [address] [place] [address] Threader Operator Family Medicine 10/25/24 11/14/24 documented as of this encounter
--- OUTSIDE RECORDS SUMMARY | 2025-03-15 13:12 | XMS_ITS | Encounter Summary ---
Author Organization [facility] Address [address] [place] [address] Care Team Providers Care Market Maker Name Role Phone Adarsh Manrique MD Primary Care Provider [phone] Adarsh Manrique MD Unavailable [phone] Kelly Nice BUILDING CUSTODIAN Unavailable [phone] Encounter Details Date Type Department Care Team (Late st Contact Info) Description 12/08/2023 Clinisync Result Encounter NOMS External Department Unsolicited Adarsh Manrique MD 112 [facility] 110 [place] [address] Social History Tobacco Use Types [...] 03/19/2025 2:00 PM EDT Office Visit [facility] Eye [address] [place] [address] Raffaele Castillo DO [address] [place] [address] 07/25/2025 9:30 AM EST Office Visit [facility] [place] [facility] 112 [facility] 110 [place] [address] Adarsh Manrique MD 112 [facility] [address] [place] [address] documented as of this encounter Procedures Procedure Name Priority Date/Time Associated Diagnosis Comments MM TOMOSYNTHESIS SCREENING BI 12/08/2023 9:50 AM EDT documented in this encounter Results * MM TOMOSYNTHESIS SCREENING BI (12/08/2023 9:50 AM EDT) Anatomical Region Laterality Modality Other 12/08/2023 9:50 AM EDT Narrative 12/08/2023 9:[place] [address] Mammography Report Signed Patient: JEANNETTE BRIGHT MR#: [id number] : 1945 Acct:[id number] Age/Sex: 78 / F ADM Date: 12/08/23 Loc: MAMMO Attending Dr: ADARSH MANRIQUE Ordering Physician: ADARSH MANRIQUE Results: Date of Service: 12/08/23 Follow Up: Procedure(s): MM tomosynthesis screening BI Accession Number(s): [id number] cc: ADARSH MANRIQUE Patient Name: JEANNETTE BRIGHT MR#: [id number] : 1945 Exam Date: 12/08/2023 Ordering Doctor: [...] mouth cancer at age 71. LOCATION: The [facility] BREAST COMPOSITION: The breasts are heterogeneously [...] Tate M.D. Signed By: 12/08/2351 DD/ TD/TT: Lead Javascript Engineer: Procedure Note Radiology, Radiologist, - 12/08/2023 [place] [address] Mammography Report Signed Patient: JEANNETTE BRIGHT GMR#: [id number] : 1945cct:[id number] Age/Sex: 78 / FADM Date: 12/08/23 Loc: MAMMO Attending Dr: ADARSH MANRIQUE Ordering Physician: ADARSH MANRIQUEResults: Date of Service: 12/08/23Follow Up: Procedure(s): MM tomosynthesis screening BI Accession Number(s): [id number] cc: ADARSH MANRIQUE Patient Name: JEANNETTE BRIGHT MR#: [id number] : 1945 Exam Date: 12/08/2023 Ordering Doctor: [...] mouth cancer at age 71. LOCATION: The [facility] BREAST COMPOSITION: The breasts are heterogeneously [...] Federico Tate M.D. Signed By:12/08/2351 DD/ TD/TT: Lead Javascript Engineer: Adarsh Manrique MD [facility] Final Result documented in this encounter Visit Diagnoses Not on filedocumented in this encounter Care Teams Market Maker Relationship Specialty Start Date End Date Adarsh Manrique MD [address] [facility] 110 [place] [address] PCP - General Internal Medicine 10/23/22 Adarsh Manrique MD [address] [facility] 110 [place] [address] PCP - ACO Reach 10/22/22 Kelly Nice, BUILDING CUSTODIAN [address] [place] [address] Energy Economist Family Medicine 10/25/24 11/14/24 documented as of this encounter
--- OUTSIDE RECORDS SUMMARY | 2025-03-15 13:12 | XMS_ITS | Encounter Summary ---
Author Organization [facility] Address [address] [place] [address] Care Team Providers Care Chief Of Safety And Protection Name Role Phone Adarsh Manrique MD Primary Care Provider [phone] Adarsh Manrique MD Unavailable [phone] Kelly Nice ICE CREAM VAN VENDOR Unavailable [phone] Encounter Details Date Type Department Care [...] 03/19/2025 2:00 PM EDT Office Visit [facility] [address] [place] [phone] Raffaele aCstillo, DO [address] [place] [address] 07/25/2025 9:30 AM EST Office Visit [facility] [address] [facility] [address] [place] [address] Adarsh Manrique MD [address] [facility] [address] [place] [address] documented as of this encounter Procedures Procedure Name Priority Date/Time Associated Diagnosis Comments XR ABDOMEN 1V 12/22/2023 6:11 AM EDT documented in this encounter Results * XR ABDOMEN 1V (12/22/2023 6:11 AM EDT) Anatomical Region Laterality Modality Other 12/22/2023 6:11 AM EDT Narrative 12/22/2023 6:13 [place] [address] XRay Report Signed Patient: JEANNETTE BRIGHT MR#: [id number] : 1945 Acct:[id number] Age/Sex: 78 / F ADM Date: 12/21/23 Loc: US Attending Dr: Keerthi Baptiste M.D. Ordering Physician: Keerthi Baptiste M.D. Date of Service: 12/21/23 Procedure(s): XR abdomen 1V Accession Number(s): [id number] cc: ADARSH MANRIQUE ; Keerthi Baptiste M.D. [address] [address] Patient Name: JEANNETTE BRIGHT MRN: [id number] date: 1945 Sex: F Assigned Patient Location: Current Patient Location: Accession/Order Number: [id number] Exam Date: 12/21/2023 09:20 Report Date: 12/22/2023 [...] M.D. Signed By: 12/22/23612 DD/ 0 TD/TT: Cable Television Line Technician: Procedure Note Radiology, Radiologist, MD - 12/22/2023 [place] [address] XRay Report Signed Patient: JEANNETTE BRIGHT GMR#: [id number] : 1945cct:[id number] Age/Sex: 78 / FADM Date: 12/21/23 Loc: US Attending Dr: Keerthi Baptiste M.D. Ordering Physician: Keerthi Baptiste M.D. Date of Service: 12/21/23 Procedure(s): XR abdomen 1V Accession Number(s): [id number] cc: ADARSH MANRIQUE ; Keerthi Baptiste M.D. The [place] [address] Patient Name: JEANNETTE BRIGHT MRN: [id number] date: 1945 Sex: F Assigned Patient Location: Current Patient Location: Accession/Order Number: [id number] Exam Date: 12/21/2023 09:20 Report Date: 12/22/2023 [...] [place] M.D. Signed By:12/22/23612 DD/ 0 TD/TT: Cable Television Line Technician: us Generic External Data Provider [facility] Final Result documented in this encounter Visit Diagnoses Not on filedocumented in this encounter Care Teams Chief Of Safety And Protection Relationship Specialty Start Date End Date Adarsh Manrique MD [address] [facility] [address] [place] [address] PCP - General Internal Medicine 10/23/22 Adarsh Manrique MD [address] [facility] [address] [place] [address] PCP - ACO Reach 10/22/22 Kelly Nice, ICE CREAM VAN VENDOR [address] [place] [address] Bus Aide Family Medicine 10/25/24 11/14/24 documented as of this encounter
--- OUTSIDE RECORDS SUMMARY | 2025-03-15 13:12 | XMS_ITS | Encounter Summary ---
Author Organization [facility] Address [address] [place] [address] Care Team Providers Care Cementer Machine Joiner Name Role Phone Adarsh Manrique MD Primary Care Provider [phone] Adarsh Manrique MD Unavailable [phone] Kelly Nice SPLUNK CONSULTANT Unavailable [phone] Encounter Details Date Type Department Care [...] 03/19/2025 2:00 PM EDT Office Visit [facility] [address] [place] [phone] Raffaele Castillo, DO [address] [place] [address] 07/25/2025 9:30 AM EST Office Visit [facility] [address] [facility] [address] [place] [address] Adarsh Manrique MD [address] [facility] [address] [place] [address] documented as of this encounter Procedures Procedure Name Priority Date/Time Associated Diagnosis Comments US RENAL BI 12/22/2023 6:43 AM EDT documented in this encounter Results * US RENAL BI (12/22/2023 6:43 AM EDT) Anatomical Region Laterality Modality Other 12/22/2023 6:43 AM EDT Narrative 12/22/2023 6:45 AM EDT [address] [address] Ultrasound Report Signed Patient: JEANNETTE BRIGHT MR#: [id number] : 1945 Acct:[id number] Age/Sex: 78 / F ADM Date: 12/21/23 Loc: US Attending Dr: Keerthi Baptiste M.D. Ordering Physician: Keerthi Baptiste M.D. Date of Service: 12/21/23 Procedure(s): US renal BI Accession Number(s): [id number] cc: ADARSH MANRIQUE ; Keerthi Baptiste M.D. [address] [address] Patient Name: JEANNETTE BRIGHT MRN: [id number] date: 1945 Sex: F Assigned Patient Location: US Current Patient Location: US Accession/Order Number: [id number] Exam Date: 12/21/2023 09:45 Report Date: 12/22/2023 06:43 At the request of: KEERTHI BAPTISTE Procedure: US renal BI EXAMINATION: US [...] M.D. Signed By: 12/22/2345 DD/ 2 TD/TT: Socially Responsible Investment Adviser: Procedure Note Radiology, Radiologist, MD - 12/22/2023 [place] [address] Ultrasound Report Signed Patient: JEANNETTE BRIGHT GMR#: [id number] : 1945cct:[id number] Age/Sex: 78 / FADM Date: 12/21/23 Loc: US Attending Dr: Keerthi Baptiste M.D. Ordering Physician: Keerthi Baptiste M.D. Date of Service: 12/21/23 Procedure(s): US renal BI Accession Number(s): [id number] cc: ADARSH MANRIQUE ; Keerthi Baptiste M.D. The [place] [address] Patient Name: JEANNETTE BRIGHT MRN: [id number] date: 1945 Sex: F Assigned Patient Location: US Current Patient Location: US Accession/Order Number: [id number] Exam Date: 12/21/2023 09:45 Report Date: 12/22/2023 06:43 At the request of: KEERTHI BAPTISTE Procedure: US renal BI EXAMINATION: US [...] Ashwin [place] M.D. Signed By:12/22/2345 DD/ TD/TT: Socially Responsible Investment Adviser: us Generic External Data Provider [facility] Final Result documented in this encounter Visit Diagnoses Not on filedocumented in this encounter Care Teams Cementer Machine Joiner Relationship Specialty Start Date End Date Adarsh Manrique MD [address] [facility] [address] [place] [address] PCP - General Internal Medicine 10/23/22 Adarsh Manrique MD [address] [facility] [address] [place] [address] PCP - ACO Reach 10/22/22 Kelly Nice, JOSE MANUEL [address] [facility] [place] [place] [address] Internal Grinder Family Medicine 10/25/24 11/14/24 documented as of this encounter
--- OUTSIDE RECORDS SUMMARY | 2025-03-15 13:12 | XMS_ITS | CCD ---
Author Organization [facility] Inform ion Partnership [facility] Care Team Providers Care Residential Nurse Name Role Phone DR ADARSH MANRIQUE Admitting Unavailable DR ADARSH MANRIQUE Attending Unavailable DR ADARSH MANRIQUE Primary Care Unavailable DR ADARSH MANRIQUE Consulting Unavailable DAHIANA, DR KYARA Hightower Consulting Unavailable ADARSH MANRIQUE Primary Care Physician Adarsh Manrique MD Primary Care Provider Adarsh Manrique MD Unavailable Adarsh Manrique II Primary Care Provider Demarcus Barahona MD Attending Provider Adarsh Manrique II Primary Care Provider Demarcus Barahona MD Attending Provider Ariadna Spear RN Other Provider Unavailable Mellissa RN, Cristal Other Provider Unavailable Mady RNNorma Other Provider Unavailable Janis Rondon RN Other Provider Unavailable Selina Gallego RN Other Provider Unavailable Suzette Carey RN Other Provider Unavailable Fidelia Kruse MD Other Provider Yani De Leon DO Other Provider Adeel Singletary MD Other Provider Jovani Callahan DO Other Provider Vazquze Marvin MD Other Provider Ivana Kelly MD Other Provider Jose Antony DO Other Provider John Dorado MD Other Provider Unavailable Nhi Graham APRN Other Provider [phone] Rena Alexis MD Other Provider [phone] Gladis JOHNS, José Luis Other Provider Jono JOHNS, Estefani Other Provider Unavailable Dennys Montesinos MD Other Provider Jose Mcclain DO Other Provider Ted Ontiveros MD Other Provider Bora Severino MD Other Provider Brittany CARDIOLOGY PHYSICIAN-C, Lauren Ortiz Other Provider Milton LUONG, Wade Rojas Other Provider Unavailable Sun JOHNS, Serjio Dejesus Other Provider Haider JOHNS, Alex Other Provider James JOHNS, Abraham Other Provider Jules JOHNS, Terrie Other Provider Unavailable Robinson Hall MD Other Provider Tomeka Vuong DO Other Provider Orlin DO, Chivo Hightower Other Provider Jazmin Ulrich APRN Other Provider Otilio Umanzor DO Other Provider Chaz JOHNS, Roberto Rojas Other Provider Dariela Hernández APRN Other Provider Sangita Zamora APRN Other Provider Naga JOHNS, Dahiana Other Provider Unavailable Adarsh New MD Other Provider Banerjee DOBro Other Provider Luis DOFelix Other Provider James JOHNS, Flavio Roberto Other Provider Susana Montgomery MD Other Provider [phone] Selma Momin APRN Other Provider Unavailable Conner Aldana MD Other Provider Jorge JOHNS, Brian Other Provider Devon Johnson MD Other Provider Linda JOHNS, John Zendejas Other Provider [phone] Scotty Dill MD Other Provider Felisa Saxena APRN Other Provider Sami Hernandes APRN Other Provider Shelby Soto RN Other Provider Unavailable Manrique II, Adarsh Primary Care Provider Demarcus Barahona MD Attending Provider Burton II, Adarsh Primary Care Provider [phone] Demarcus Barahona MD Attending Provider Jun GAGNON, Demarcus Rojas Attending Unavailabl e Adarsh Manrique Primary Care Unavailable Demarcus Barahona II Admitting Unavailabl e Jun GAGNON, Demarcus Rojas Admitting Unavailabl e Jun GAGNON, Demarcus Rojas Attending Unavailabl e Adarsh Manrique Primary Care Unavailable Ariadna Spear Consulting Unavailable Cristal Malloy Consulting Unavailable Denselisabeth, Norma Consulting Unavailable Janis Rondon Consulting Unavailable Selina Gallego Consulting Unavailable Suzette Carey Consulting Unavailable Fidelia Kruse Consulting Unavailable Yani De Leon Consulting Unavailable Adeel Singletary Consulting Unavailable Jovani Callahan Consulting Unavailabl Vazquez Pizarro Consulting Unavailable Ivana Kelly Consulting Unavailable Jose Antony Consulting Unavailable John Dorado Consulting Unavailable Nhi Graham Consulting Unavailabl e [place], Marwan Consulting Unavailable Gladis José Luis Consulting Unavailable Estefani De La Cruz Consulting Unavailable Dennys Montesinos Consulting Unavailable Jose Mcclain Consulting Unavailable Ted Ontiveros Consulting Unavailable Bora Severino Consulting Unavailable Lauren Soto Consulting Unavailable Wade Rose Consulting Unavailable Serjio Garsia Consulting Unavailab Alex Pena Consulting Unavailable Abraham Ramirez Consulting Unavailable AlmTerrie fang Consulting Unavailable Robinson Hall Consulting Unavailable Tomeka Vuong Consulting Unavailable Chivo Ordaz Consulting Unavailable Objerome Jazmin Consulting Unavailable Otilio Umanzor Consulting Unavailable Roberto Ware Consulting Unavailable Dariela Hernández Consulting Unavailable Sangita Zamora Consulting Unavailable Dahiana Nielson Consulting Unavailable Adarsh New Consulting Unavailable Bro Banerjee Consulting Unavailable Felix Smith Consulting Unavailable Flavio Ramirez Consulting Unavailable Susana Montgomery Consulting Unava ilable Selma Momin Consulting Unavailable Conner Aldana Consulting Unavailable Brian Patel Consulting Unavailable Devon Johnson Consulting Unavailable John Mckeon Consulting Unavailable Scotty Dill Consulting Unavailable Felisa Saxena Consulting Unavailable Bolzan-Iveth Nicolettbasil Consulting Unavaila Shelby Hernandez Consulting Unavailable Jun GAGNON, Demarcus Rojas Attending Unavailabl e [place] II, Demarcus M Admitting Unavailabl e Adarsh Manrique Primary Care Unavailable Jun II, Demarcus Rojas Attending Unavailabl e Adarsh Manrique Primary Care Unavailable [place] II, Demarcus M Admitting Unavailabl e [place] II, Demarcus M Attending Unavailabl e Adarsh Manrique Primary Care Unavailable [place] II, Demarcus M Admitting Unavailabl e [place] II, Demarcus M Admitting Unavailabl e [place] II, Demarcus M Attending Unavailabl e Adarsh Manrique Primary Care Unavailable Jun II, Demarcus M Admitting Unavailabl e Jun II, Demarcus M Attending Unavailabl e Burton Adarsh Primary Care Unavailable Keerthi Trujillo. Attending Unavailable Keerthi Trujillo Attending Unavailable NOLVIA GOMEZ Attending Unavailable NOLVIA GOMEZ Attending Unavailable ELHAM MORFIN Attending Unavailable ADARSH MANRIQUE Attending Unavailable ADELINE NOGUERA Attending Unavailable ADARSH MANRIQUE Referring Unavailable ADELINE NOGUERA Attending Unavailable ADARSH MANRIQUE Referring Unavailable ADARSH MANRIQUE Attending Unavailable ADARSH MANRIQUE Attending Unavailable ELHAM MORFIN Attending Unavailable ADARSH MANRIQUE Attending Unavailable CONNER VALERIO Attending Unavailable MATY ROJAS Attending Unavailable Allergies Allergy Classification Reported Allergen(s) Allergy Type Date of Onset Reaction(s) Facility (1 source) Nitrofurantoin Drug Allergy [facility] Repository (20 sources) Nitrofurantoin; Translations: [nitrofurantoin] Drug Allergy 09-14-19 19 Dizziness, Other (qualifier value) [facility] (6 sources) oxyCODONE; Translations: [oxycodone] Drug Allergy 08-31-[address] [facility] (1 source) NITROFURANTOIN MONOHYD/M-CRYST; Translations: [NITROFURANTOIN MONOHYD/M-CRYST] Propensity to adverse reactions to drug (disorder) 07-09-19 [facility] Repository Medications Current Medications Medication Drug [...] Active 81 MG PO Twice daily 70 August 17, 2024 12:00am MED TO BED UPON DISCHARGE. DOS 08/29/24 Complies with drug therapy Start: 01-10-2024 take 1 tablet by antoni th once daily aspirin (ASPIR) 81 MG EC tablet Indications: Chest pain, unspecified type Take 1 tablet (81 mg) by mouth Daily 90 tablet 01/10/2024 Active Start: 01-01-2020 take 1 mg by mouth once daily aspirin 81 mg oral tablet mg tab(s), Oral, Daily, Refills(s) 0 Start Date: 01/01/20 Status: Ordered Repeat number: 1 Start: 07-26-2018 End: 09-29-2018 take 1 tablet [...] tablet (20 sources) HMG-CoA Reductase Inhibitor Start: 01-18-2025 take 1 tablet by mouth once daily atorvastatin (Lipitor) 40 MG tablet Indications: Pure hypercholesterolemia, unspecified Take 1 tablet (40 mg) by mouth Daily 100 tablet 3 01/18/2025 Active Start: 01-01-2020 atorvastatin O ral, Daily, Refills(s) 0, High cholesterol Start Date: 01/01/20 Status: Ordered Repeat number: 1 Start: 01-01-2020 atorvastatin O ral, Daily, Refills(s) [...] take 1 tablet by antoni once daily Calcium Carbonate-Vitamin D3 (Oyster Shell [...] TAB PO Daily September 29, 2018 12:00am Calcium Citrate (1 source) Start: 02-21-2025 Citracal + D Oral, BID Start Date: 02/21/25 Status: Ordered Repeat number: 1 candesartan cilexetil 16 mg / hydroCHLOROthiazide 12.5 mg oral tablet (20 sources) Thiazide Diuretic, Angiotensin 2 Receptor Roxy Start: 02-21-2025 candesartan-hydrochlo rothiazide 16 mg-12.5 mg oral tablet 1 tab(s), Refill(s) 0 Start Date: 02/21/25 Status: Ordered Repeat number: 1 Start: 06-08-2024 Candesartan-Hy drochlorothiazid 16-12.5 mg tablet Active TAB PO June 08, 2024 12:00am Start: 01-12-2024 End: 02-22-2026 take 1 tablet by mouth once daily candesartan-hydroCHLOROthiazide (Atacand HCT) 16-12.5 MG tablet Indications: Primary hypertension Take 1 tablet by mouth Daily 100 tablet 3 01/18/2025 02/22/2026 Active cefdinir 300 mg oral capsule (4 [...] 1 tablet by antoni th once daily Cholecalciferol (Vitamin D3) (Vitamin D3) 1,000 unit Tablet Active 1000 UNIT PO Daily September 29, 2018 12:00am Complies with drug therapy Start: 07-26-2018 End: 09-29-2018 take 1 capsule by mouth once daily Cholecalciferol (Vitamin D3) (Vitamin D3) 1,000 unit Capsule Discontinued 1000 UNIT PO Daily July 26, 2018 1:00am September 29, 2018 1:39pm Citracal Plus Bone Density Builder (5 sources) Start: 01-01-2020 Citracal Plus Bone Density Builder Oral, Daily, Refill(s) 0, Prophylaxis Start Date: 01/01/20 Status: Ordered Repeat number: 1 Start: 01-01-2020 Citracal Plus Bone Density Builder Oral, Daily, Refill(s) 0, Prophylaxis Start Date: 01/01/20 Status: Ordered Start: 01-01-2020 Citracal Plus Bone Density Builder Oral, Daily, Refill(s) 0 Start Date: 01/01/20 Status: Ordered latanoprost (5 sources) Prostaglandin Analog Start: 01-06-[address] ophthalmic qPM, Refill(s) 0 Start Date: 01/06/21 Status: Ordered Repeat number: 1 Start: 01-06-2021 latanoprost op hthalmic qPM, Refill(s) 0 Start Date: 01/06/21 Status: Ordered latanoprostene bunod 0.24 mg /ml ophthalmic solution (20 sources) Start: 02-21-2025 Vyzulta 0.024% ophthalmic solution 1 drop(s), Refill(s) 0 Start Date: 02/21/25 Status: Ordered Repeat number: 1 Start: 10-02-2024 take 1 drop(s) into the [...] Start: 08-11-2024 take 1 tablet by antoni th once daily Multivitamin (Daily Multi-Vitamin) tablet Active 1 TAB PO Daily August 11, 2024 12:00am omeprazole 40 mg delayed release oral capsule (20 sources) Proton Pump Inhibitor Start: 08-11-2024 take 2 capsules by mouth once daily Omeprazole 20 mg Capsule,Delayed Release(Dr/Ec) Active 40 MG PO Daily August 11, 2024 12:00am Complies with drug therapy Start: 06-23-2023 take 1 capsule by mo nch once daily omeprazole (PriLOSEC) [address] capsule Indications: GERD without esophagitis Take 1 capsule (40 mg) by mouth Daily 100 capsule 3 01/18/2025 Active Start: 09-29-2018 End: 08-11-2024 take 1 [...] day(s), 10 tab(s), Refill(s) 0, [id number], 154, cm, 07/15/23 15:50:00 EST, Height/Length Dosing, [...] 12:00am August 11, 2024 9:42am Vitamin D3 (5 sources) Start: 01-01-2020 take 10 ug by mouth once daily Vitamin D3 10 mcg, Oral, Daily, Refills(s) 0, Prophylaxis Start Date: 01/01/20 Status: Ordered Repeat number: 1 Start: 01-01-2020 take 10 ug by mouth [...] capsule Discontinued 500 MG PO Q12H 14 August 17, 2024 12:00am September 14, 2024 12:47pm MED TO [...] 10:43am docusate sodium 50 mg / sennosides, long-term 8.6 mg oral tablet (8 sources) Start: [...] ONCE@0900 Days: 1 Hours: 0 Dose: 4 September 23, 2018 12:00am September 29, [...] November 03, 2018 3:43pm polyethylene glycol 3350 72904 mg powder for oral solution (8 sources) Osmotic Laxative Start: 08-17-2024 End: 10-18-2024 Polyethylene Glycol 3350 (Miralax) 17 gram/dose powder Discontinued 17 GM PO daily 12 04August 17, 2024 12:00am October 18, 2024 11:21am 1 packed mixed with 8 ounces of fluid. QUEtiapine 25 mg oral tablet (20 sources) Atypical Antipsychotic Start: 09-23-2018 End: 06-08-2024 Quetiapine 25 mg Tablet Discontinued 12.5 MG PO Daily at bedtime September 29, 2018 12:00am June 08, 2024 [...] 2018 12:00am September 13, 2018 2:29pm sennosides, long-term 8.6 mg oral tablet (12 sources) Start: [...] MG PO q6h as needed for Pain 25 12August 17, 2024 12:00am October 18, 2024 11:21am MED TO BED UPON DISCHARGE. DOS 08/29/24 Problems Active Problems Problem Classification Problem Date Documented Date Episodic/Chronic Blindness and vision defects (20 sources) 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[place]; Translations: [Legal blindness, as defined in [place]] Onset: 06-06-2024 06-06-2024 Chronic Blindness and vision defects (1 source) Color blindness 02-21-2025 Episodic Cancer; other and unspecified primary (20 [...] Chronic Coronary atherosclerosis and other heart disease (20 sources) Disorder of cardiovascular system; Translations: [Atherosclerotic heart disease of [place] coronary artery without angina pectoris] Onset: 10-29-2022 [...] Comment on above: NO HTN DX Genitourinary congenital anomalies (2 sources) Multiple congenital cysts of kidney; Translations: [Congenital multiple renal cysts] Onset: 02-21-2025 Chronic Genitourinary symptoms and ill-defined conditions (20 sources) Stress incontinence (female) (male); Translations: [Female stress incontinence] Onset: 01-19-2024 Chronic Glaucoma (20 sources) Open-angle glaucoma of left eye; Translations: [Primary open-angle glaucoma, left eye, mild stage] Onset: 06-06-2024 06-06-2024 Chronic Headache; including migraine (20 sources) Migraine; Translations: [Migraine, unspecified, not intractable, without status migrainosus] Onset: 10-29-2022 Resolved: 02-14-2024 02-23-2019 Chronic Immunizations and screening for infectious disease (4 sources) Needs influenza immunization; Translations: [Encounter for [...] injuries and conditions due to external causes (5 sources) Injury of head 01-01-2020 Episodic Other lower respiratory disease (2 sources) Other forms of dyspnea; Translations: [Other forms of dyspnea] Onset: 03-09-2025 Episodic Other screening for suspected conditions (not mental disorders or infectious disease) (20 sources) Radiology result abnormal; Translations: [Abnormal findings on diagnostic imaging of other specified body structures] Onset: 10-29-2022 10-29-2022 Chronic Residual codes; unclassified (1 source) Family history of malignant neoplasm of other organs or systems; Translations: [FAM HX MALIG NEOPLASM OTH ORGN/SYS] Onset: 08-27-2022 Episodic Residual codes; unclassified (12 sources) History of [...] List clean-u p per request of Phys. MIGUEL Cmte Cancer of bronchus; lung (20 sources) Personal history of other malignant neoplasm of bronchus and lung; Translations: [Personal history of malignant neoplasm of bronchus and lung] Onset: 06-20-2024 06-20-2024 Episodic Coma; stupor; and brain damage (20 sources) Loss of consciousness; Translations: [Unspecified coma] Onset: 11-28-2015 Resolved: 07-27-2024 10-29-2022 Episodic Conditions associated with dizziness or vertigo (20 sources) Labyrinthine disorder; Translations: [Labyrinthine dysfunction, unspecified ear] Onset: 10-29-2022 10-29-2022 Episodic Diseases of white blood cells [...] Onset: 06-23-2023 Resolved: 06-20-2024 Episodic Mood disorders (16 sources) Mood disorders Onset: 07-27-2024 07-27-2024 Neoplasms of unspecified nature or uncertain behavior [...] Onset: 11-28-2015 Resolved: 07-27-2024 10-29-2022 Episodic Other fractures (2 sources) Multiple fractures of ribs, right side, initial encounter for closed fracture; Translations: [Closed fracture of multiple ribs, unspecified] Onset: 11-28-2015 Resolved: 07-27-2024 07-27-2024 Episodic Other injuries and conditions due to [...] Phys. EHR Cmte Other nervous system disorders (20 sources) Unsteady [...] 11-18-2023 Episodic Residual codes; unclassified (20 sources) Patient encounter status; Translations: [Encounter for prophylactic measures, unspecified] Onset: 06-28-2023 Resolved: 07-27-2024 02-23-2019 Episodic Comment on above: Problem List clean-u p per request of Phys. EHR Cmte Residual codes; unclassified (20 sources) H/O: pneumonectomy; [...] Value Interpretation Reference Range Facility Office Visiton 03-09-2025 Follow-up visit [id number] Jeannette Porter 1945 F Date Provider Department Center 03/09/2025 [id number] ROJAS STEVEN [facility] Family History Problem Relation Age of Onset Other Father Family Status - Relation Status Age at Mother Father Level of Service:59948 CO OFFICE/OUTPATIENT ESTABLISHED MOD MDM 30 MIN Reason for Visit and Comments: Follow-up [264301] - Patient is here today for a 6 month follow up CVD [Other] Hyperlipidemia [182] Hypertension [229257] Shortness of Breath [198937] - Increased SOB in the hot weather. ORTIZ with going upstairs Normal [facility] Ambulatory Visit Summaryon 0 02-21-2025 Ambulatory Visit Summary Ambulatory Visit Summary JEANNETTE PORTER :1945 Visit Date:02/21/2025 Ambulatory Visit Instructions Your Diagnosis Kidney stones Multiple renal cysts Abnormal urinalysis Tests Performed US Renal -- Results Pending -- XR Abdomen 1 View -- Results Pending -- Please visit your patient portal for your results or contact your primary care physician. Your Care Team Attending Physician - Keerthi Trujillo MD Primary Care Physician - ADARSH MANRIQUE MD This Is Your Medications List Contact prescribing physician if questions or concerns aspirin (aspirin 81 mg oral tablet) atorvastatin calcium-vitamin D (Citracal + D) candesartan-hydrochlorothi azide (candesartan-hydrochloroth iazide 16 mg-12.5 mg oral tablet) cholecalciferol (Vitamin D3) latanoprost ophthalmic latanoprostene bunod ophthalmic (Vyzulta 0.024% ophthalmic solution) multivitamin with minerals (Citracal Plus Bone Density Builder) omeprazole (omeprazole 40 mg Cap-DR) Procedures Performed Cystoscopy and electrohydraulic lithotripsy of calculus of bladder (07/20/2023), Cystoscopic insertion of ureteric stent (06/15/2023), ESWL of kidney (01/31/2021), Biopsy of breast, Colonoscopy, Cystoscopy, History of tonsillectomy, Knee replacement, Lung cyst removal. Discharge Vitals Temperature (Tympanic) 36.9 ???C Heart Rate (Peripheral) 68 Respiratory Rate 16 Blood Pressure 130/60 Height 153 cm Height 60 in Weight 76 kg Weight 167.551 lb BMI 32.47 What to do next Scheduled Follow-Up Appointments Wednesday2025 9:15 AM EDT With: Keerthi Trujillo MD Where: [facility] [id number]- You Need to Schedule the Following Appointments Follow Up with Keerthi Trujillo MD, URL, URO When: Where: Medications What How Much When Instructions Unchanged aspirin (aspirin 81 mg oral tablet) By Mouth Every day Contact prescribing physician if questions or concerns Unchanged atorvastatin By Mouth Every day Contact prescribing physician if questions or concerns Unchanged calcium-vitamin D (Citracal + D) By Mouth 2 times a day Contact prescribing physician if questions or concerns Unchanged candesartan-hydrochlorothi azide (candesartan-hydrochloroth iazide 16 mg-12.5 mg oral tablet) 1 Tablets Contact prescribing physician if questions or concerns Unchanged cholecalciferol (Vitamin D3) 10 Microgram By Mouth Every day Contact prescribing physician if questions or concerns Unchanged latanoprost ophthalmic Once a day (in the evening) Contact prescribing physician if questions or concerns Unchanged latanoprostene bunod ophthalmic (Vyzulta 0.024% ophthalmic solution) 1 Drops Contact prescribing physician if questions or concerns Unchanged multivitamin with minerals (Citracal Plus Bone Density Builder) By Mouth Every day Contact prescribing physician if questions or concerns Unchanged omeprazole (omeprazole 40 mg Cap-DR) 1 Capsules By Mouth Every day Contact prescribing physician if questions or concerns Allergies nitrofurantoin (Other) Problems Ongoing - Any problem that you are currently receiving treatment for. 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 Reading food labels ??? Choose foods with no salt added or low-salt labels. Limit your salt (sodium) intake to less than 1,500 mg a day. ??? Choose foods with calcium for each meal and snack. Try to eat about 300 mg of calcium at each meal. Foods that contain 200???500 mg of calcium a serving include: ? 8 oz (237 mL) of milk, [id number]-[id number] milk, and calcium-fortifiedfruit juice. Calcium-fortified means that calcium has been added to these drinks. ? 8 oz (237 mL) of kefir, yogurt, and soy yogurt. ? 4 oz (114 g) of tofu. ? 1 oz (28 g) of cheese. ? 1 cup (15 (more content not included)... Normal [facility] Reminderson 02-21-2025 Reminders Reminders From: Carleen Truong To: HEIDI - Yolanda Trujillo; Sent: 02/21/2025 09:47:41 EDT Show up: 01/21/2026 09:47:00 EDT Subject: everton FLOR Due Date/Time: 02/21/2026 09:47:00 EDT Reminder Message Please Remember to: Please call pt to schedule CHACHO for 1 yr appt. She will also need KUB. Both orders in 02/21/25 encounter. Thanks! Normal Deras [facility] Urology Office/Clinic Noteon 02-21-2025 Urology Office/Clinic Note Urology Office/Clinic Note Chief Complaint Pt here for follow up with KUB CHACHO HPI Staff 1 yr with KUB and CHACHO d/t kidney stones. CHACHO & KUB 01/23/25 TB. *called [facility] to have these pushed over SH 02/14/25 No maintenance uro meds Pt denies pain/burning denies flank pain denies flank pain Pt has no urinary complaints at this time BBSQ: 11 History of Present Illness Tests reviewed: UA, KUB, CHACHO I have reviewed the previous health record [...] See HPI. Physical Exam Vitals & Measurements T: 36.9 ???C(Tympanic) HR: 68(Peripheral) RR: 16 BP: 130/60 HT: 60 in HT: 153 cm WT: 167.551 lb WT: 76 kg BMI: 32.47 General Appearance: alert, no distress, well nourished, well developed adult. Assessment/Plan 79-year-old female with a history of recurrent stones here for renal stone surveillance. Colorblind. BBS 11 (10). 1. Kidney stones (N20.0: Calculus of kidney) [...] Citrate 409 mildly low. Magnesium 26 L. KUB 01/23/25 [facility] - Both kidneys obscured. Neg. CHACHO 01/23/25 [facility] - Multiple BL renal stones, largest on the R is 6 mm at the RLP, largest on the L is 9 mm LMP. No hydro. Personal review: L sided stones are intraparenchymal, some stones on the R are intraparenchymal but not all. Reviewed imaging with pt. Pt is no longer taking topiramate. Switched to a different med, too expensive, but not having any more issues off meds. Re-reviewed litholink findings. Educated pt on dietary modifications and fluid intake for stone prevention. Pt would like to cont stone monitoring. Follow up 1 yr with BHAVIN FLOR or sooner if needed. Pt understands and agrees with plan. -High fluid intake, goal 90-100 oz, add 1/4 cup lemon/tohono o'odham daily -Dietary Mg and other mods (more fruits/veg, limit animal protein and salt) 2. Multiple renal cysts (Q61.02: Congenital multiple renal cysts) [facility] 01/23/25 [facility] - Cortical cyst LUP 11 mm. BL parapelvic renal cysts again seen. No hydro. -If simple, does not require surveillance. 3. Abnormal urinalysis (R82.90: Unspecified abnormal findings in urine) UA shows + nitrites and small leuks (same as last yr). Asx. No infection sx within the past year. -Notify office if she develops UTI sx Follow-up With When Contact Information Ronnie JOHNS, Keerthi Myers, URL, URO Additional Instructions: 1 yr with CHACHO, KUB Patient Education Dietary Guidelines to Help Prevent Kidney Stones I, Carleen Truong, personally scribed for Dr. Trujillo on 02/21/2025 09:45:37. . Documentation recorded by the scribe, Carleen Truong, accurately reflects the services(s) I performed and decisions made by me. Authenticated by Dr. Trujillo on 02/21/2025 09:51:14. 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 Medications aspirin 81 mg oral tablet, Oral, Daily atorvastatin, Oral, Daily candesartan-hydrochlorothi azide 16 mg-12.5 mg oral tablet, 1 tab(s) Citracal + D, Oral, BID Citracal Plus Bone Density Builder, Oral, Daily latanoprost ophthalmic, qPM omeprazole 40 mg Cap-DR, 40 mg= 1 cap(s), Oral, Daily Vitamin D3, 10 mcg, Oral, Daily Vyzulta 0.024% ophthalmic solution, 1 drop(s) Allergies nitrofurantoin (Other) Social History Tobacco Never (less than 100 in lifetime) Tobacco Use:. Never Smokeless Tobacco Use:. Household tobacco concerns: No. Yes, 02/21/2025 Family History Diabetes mellitus typ (more content not included)... Normal [facility] Comment on above: Result Comment: Elec tronically Signed By: Keerthi Trujillo MD\.br\Date and Time Signed: 02/21/25 09:51 EDT\.br\Electronically Co-Signed By: Carleen Truong\.br\Date and Time Co-Signed: 02/21/25 09:46 EDT RENAL BIon 01-23-[address] [place] [address] Ultrasound Report Signed Patient: JEANNETTE PORTER MR#: [id number] : 1945 Acct:[id number] Age/Sex: 79 / F ADM Date: 01/23/25 Loc: US Attending Dr: Keerthi Trujillo M.D. Ordering Physician: Keerthi Trujillo M.D. Date of Service: 01/23/25 Procedure(s): US renal BI Accession Number(s): [id number] cc: ADARSH MANRIQUE ; Keerthi Trujillo M.D. [place] [id number] Patient Name: JEANNETTE PORTER MRN: [id number] date: 1945 Sex: F Assigned Patient Location: US Current Patient Location: US Accession/Order Number: [id number] Exam Date: 01/23/2025 09:45 Report Date: 01/23/2025 10:31 At the request of: KEERTHI TRUJILLO MD Procedure: US renal BI BILATERAL RENAL [...] Fink M.D. 01/23/2025 10:31 AM Dictation Location: [place] [address] Electronically authenticated by: [id number] Y Date: 01/23/2025 10:31 Dictated By: Nolvia Fink M.D. Signed By: 01/23/25 1033 DD/ 1031 TD/TT: Distributor Publications: [facility] Radiology, Johnogvikram villafana MD - 01/23/2025 [place] [address] Ultrasound Report Signed Patient: JEANNETTE PORTER MR#: [id number] : 1945 Acct:[id number] Age/Sex: 79 / F ADM Date: 01/23/25 Loc: US Attending Dr: Keerthi Trujillo M.D. Ordering Physician: Keerthi Trujillo M.D. Date of Service: 01/23/25 Procedure(s): US renal BI Accession Number(s): [id number] cc: ADARSH MANRIQUE ; Keerthi Trujillo M.D. [place] [address] Patient Name: JEANNETTE PORTER MRN: [facility]:[id number] date: 1945 Sex: F Assigned Patient Location: US Current Patient Location: US Accession/Order Number: [id number] Exam Date: 01/23/2025 09:45 Report Date: 01/23/2025 10:31 At the request of: KEERTHI TRUJILLO MD Procedure: US renal BI BILATERAL RENAL [...] Fink M.D. 01/23/2025 10:31 AM Dictation Location: [place] [address] Electronically authenticated by: [id number] Y Date: 01/23/2025 10:31 Dictated By: Nolvia Fink M.D. Signed By: 01/23/25 1033 DD/ 1031 TD/TT: Distributor Publications: [facility] Radiology Study observation (narrative) [facility] US RENAL BIOrdered By: Radio logist Radiology on 01-23-2025 [facility] Work Phone: XR ABDOMEN 1Von 01-23-2025 [place] [address] XRay Report Signed Patient: JEANNETTE PORTER MR#: [id number] : 1945 Acct:[id number] Age/Sex: 79 / F ADM Date: 01/23/25 Loc: US Attending Dr: Keerthi Trujillo M.D. Ordering Physician: Keerthi Trujillo M.D. Date of Service: 01/23/25 Procedure(s): XR abdomen 1V Accession Number(s): [id number] cc: ADARSH MANRIQUE ; Keerthi Trujillo M.D. [place] [id number] Patient Name: JEANNETTE PORTER MRN: [id number] date: 1945 Sex: F Assigned Patient Location: Current Patient Location: US Accession/Order Number: [id number] Exam Date: 01/23/2025 09:45 Report Date: 01/23/2025 10:25 At the request of: KEERTHI TRUJILLO MD Procedure: XR abdomen 1V SINGLE VIEW [...] Fink M.D. 01/23/2025 10:25 AM Dictation Location: [place] [address] Electronically authenticated by: [id number] Y Date: 01/23/2025 10:25 Dictated By: Nolvia Fink M.D. Signed By: 01/23/25 1028 DD/ 1025 TD/TT: Distributor Publications: [facility] Radiology, Radiologi MD broderick - 01/23/2025 [place] [address] XRay Report Signed Patient: JEANNETTE PORTER MR#: [id number] : 1945 Acct:[id number] Age/Sex: 79 / F ADM Date: 01/23/25 Loc: US Attending Dr: Keerthi Trujillo M.D. Ordering Physician: Keerthi Trujillo M.D. Date of Service: 01/23/25 Procedure(s): XR abdomen 1V Accession Number(s): [id number] cc: ADARSH MANRIQUE ; Keerthi Trujillo M.D. [place] [address] Patient Name: JEANNETTE PORTER MRN: [facility]:[id number] date: 1945 Sex: F Assigned Patient Location: Current Patient Location: US Accession/Order Number: [id number] Exam Date: 01/23/2025 09:45 Report Date: 01/23/2025 10:25 At the request of: KEERTHI TRUJILLO MD Procedure: XR abdomen 1V SINGLE VIEW [...] Fink M.D. 01/23/2025 10:25 AM Dictation Location: [place] [address] Electronically authenticated by: [id number] Y Date: 01/23/2025 10:25 Dictated By: Nolvia Fink M.D. Signed By: 01/23/25 1028 DD/ 1025 TD/TT: Distributor Publications: [facility] Radiology Study observation (narrative) [facility] XR ABDOMEN 1VOrdered By: Francisco Javier iologlaney Radiology on 01-23-2025 [facility] [employer] Work Phone: X-ray reportOrdered By: Buddy Bray on 11-29-2024 Study report [facility] [address] [place] [address] XRay Report Signed Patient: Jeannette Porter MR#: [id number] : 1945 Acct:[id number] Age/Sex: 79 / F ADM Date: 5 Loc: [facility] Room: Type: [facility] Attending Dr: Demarcus Barahona II, MD Copies to: Demarcus Barahona MD~ Ordering Provider: Demarcus Barahona MD Date of Service: 11/29/24 XR/XR femur LT 2V*: Z47.1 - Aftercare following jointreplacement surgery ([id number]) XR/XR knee LT 2V: Z47.1 - Aftercare following joint replacement surgery ([id number]) XR/XR tibia fibula LT 2V*: Z47.1 - [...] Bray M.D. 11/29/2024 5:16 PM Dictation Location: [place] [address] Transcribed By: [facility] 11/29/241715 Dictated By: Hang Bray MD 11/29/241713 Signed By: 11/29/241715 [facility] Work Phone: XR knee LT 2Von 11-29-2024 XR knee LT 2V [facility] [address] [place] [address] XRay Report Signed Patient: Jeannette Porter MR#: [id number] : 1945 Acct:[id number] Age/Sex: 79 / F ADM Date: 11/29/24 Loc: [facility] Room: Type: [facility] Attending Dr: Demarcus Barahona II, MD Copies to: Demarcus Barahona MD Ordering Provider: Demarcus Barahona MD Date of Service: 11/29/24 XR/XR femur LT 2V*: Z47.1 - Aftercare following joint replacement surgery ([id number]) XR/XR knee LT 2V: Z47.1 - Aftercare following joint replacement surgery ([id number]) XR/XR tibia fibula LT 2V*: Z47.1 - [...] Bray M.D. 11/29/2024 5:16 PM Dictation Location: RADIO-PC-23 Transcribed By: SHANON 11/29/24 171 Dictated By: Hang Bray MD 11/29/241713 Signed By: 11/29/241715 Normal [facility] X-ray reportOrdered By: Angel Stapleton on 10-18-2024 Study report [facility] [address] [place] [id number] XRay Report Signed Patient: Jeannette Porter MR#: [id number] : 1945 Acct:[id number] Age/Sex: 79 / F ADM Date: Loc: [facility] Room: Type: [facility] Attending Dr: Demarcus Barahona II, MD [...] Stapleton M.D. 10/18/2024 3:22 PM Dictation Location: RADIO-PC-24 Transcribed By: SHANON 10/18/24 1522 Dictated By: Angel Stapleton II, MD 10/18/24 1519 Signed By: 10/18/[address] [facility] Work Phone: XR knee LT 3V - NOT FOR ER U Almaz 10-18-2024 XR knee LT 3V - NOT FOR ER USE [facility] [address] [place] [address] XRay Report Signed Patient: Jeannette Porter MR#: [id number] 4 : 1945 Acct:[id number] Age/Sex: 79 / F ADM Date: 10/18/24 Loc: [facility] Room: Type: [facility] Attending Dr: Demarcus Barahona II, MD [...] Stapleton M.D. 10/18/2024 3:22 PM Dictation Location: [place] [address] Transcribed By: [facility] 10/18/24 1522 Dictated By: Angel Stapleton II, MD 10/18/24 1519 Signed By: 10/18/24 1522 Normal [facility] Perimetry studyon 10-02-2024 [facility] Radiology Study observation (narrative) [facility] Basic Metabolic Panelon 04-0 Anion gap [Moles/Vol] 12.0 mmol/L Normal 6.0-15.0 [facility] Comment on above: Performed By: #### B MP, CBC ####[address] [address] [facility] Calcium [Mass/Vol] 8.9 mg/dL Normal 8.6-10.3 [facility] Comment on above: Performed By: #### B MP, CBC ####[address] [address] [facility] Chloride [Moles/Vol] 106 mmol/L Normal 98-107 [facility] Comment on above: Performed By: #### B MP, CBC ####[address] [address] [facility] CO2 [Moles/Vol] 22.1 mmol/L Normal 21.0-31.0 [facility] Comment on above: Performed By: #### B MP, CBC ####[address] [address] [facility] Creatinine [Mass/Vol] 0.70 mg/dL Normal 0.60-1.20 [facility] Comment on above: Performed By: #### B MP, CBC ####[address] [address] [place] Creatinine Clr Calc Pharmacy 55.68 Normal [facility] Comment on above: Result Comment: PERF ORMED BY: [facility] [address] [address] PATHOLOGIST [employer] CL[employer] SERA BAIRD M.D. Performed By: #### B MP, CBC ####[place] [id number] [facility] GFR/1.73 sq M.predicted MDRD (S/P/Bld) [Vol rate/Area] mL/min/{1.73_m2} Normal [facility] Comment on above: Performed By: #### B MP, CBC ####[place] [id number] [facility] Glucose [Mass/Vol] 88 mg/dL Normal 70-100 [facility] Comment on above: Result Comment: [place] Glucose Reference Range is dependent on time and content of last meal. Glucose of more than 200 mg/dL in a nonstressed, ambulatory subject supports the diagnosis of Diabetes Mellitus. ADA recommended reference range Performed By: #### B MP, CBC ####[place] [address] [address] Potassium [Moles/Vol] 4.1 mmol/L Normal 3.5-5.1 [facility] Comment on above: Performed By: #### B MP, CBC ####[address] Sodium [Moles/Vol] 136 mmol/L Normal 136-145 [facility] Comment on above: Performed By: #### B MP, CBC ####[place] [address] [address] Urea nitrogen [Mass/Vol] 23 mg/dL Normal 7-25 [facility] Comment on above: Performed By: #### B MP, CBC ####[address] Basophils Auto (Bld) [#/Vol] Ordered By: Demarcus Barahona on 08-31-2024 Basophils (Bld) [#/Vol] Automated basophil count 0.0-0.2 [facility] Basophils/100 WBC Auto (Bld) Ordered By: Demarcus Barahona on 08-31-2024 Basophils/100 WBC (Bld) Automated basophil % . [facility] Calcium [Mass/volume] in Ser um or PlasmaOrdered By: Demarcus Barahona on 08-31-2024 Calcium [Mass/Vol] Calcium [Mass/volume ] in Serum or Plasma 8.6-10.3 [facility] Carbon dioxide, total [Moles /volume] in Serum or PlasmaOrdered By: Demarcus Barahona on 08-31-2024 CO2 [Moles/Vol] Carbon dioxide, tota l [Moles/volume] in Serum or Plasma 21.0-31.0 [facility] Chloride [Moles/volume] in S kee or PlasmaOrdered By: Demarcus Barahona on 08-31-2024 Chloride [Moles/Vol] Chloride [Moles/vol ume] in Serum or Plasma 98-107 [facility] Complete Blood Count Auto Di ffon 08-31-2024 Basophils (Bld) [#/Vol] 0.1 10*3/uL Normal 0.0-0.2 [facility] Comment on above: Result Comment: PERF ORMED BY: [facility] [place] [address] PATHOLOGIST [employer] CL[employer] SERA BAIRD M.D. Performed By: #### B MP, CBC ####[address] Basophils/100 WBC (Bld) 1.3 % Normal . [facility] Comment on above: Performed By: #### B MP, CBC ####[address] Eosinophils (Bld) [#/Vol] 0.2 10*3/uL Normal 0.0-0.45 [facility] Comment on above: Performed By: #### B MP, CBC ####[address] Eosinophils/100 WBC (Bld) 2.7 % Normal . [facility] Comment on above: Performed By: #### B MP, CBC ####[address] Erythrocyte distribution width (RBC) [Ratio] 14.4 % Normal 11.9-15.3 [facility] Comment on above: Performed By: #### B MP, CBC ####[address] Hematocrit (Bld) [Volume fraction] 34.4 % Normal 34.0-46.4 [facility] Comment on above: Performed By: #### B MP, CBC ####[address] Hemoglobin (Bld) [Mass/Vol] 11.6 g/dL Low 11.8-15.4 [facility] Comment on above: Performed By: #### B MP, CBC ####[address] Lymphocytes (Bld) [#/Vol] 1.8 10*3/uL Normal 1.00-4.8 [facility] Comment on above: Performed By: #### B MP, CBC ####[address] Lymphocytes/100 WBC (Bld) 28.3 % Normal . [facility] Comment on above: Performed By: #### B MP, CBC ####[address] MCH (RBC) [Entitic mass] 30.3 pg Normal 24.7-34.3 [facility] Comment on above: Performed By: #### B MP, CBC ####[address] MCV (RBC) [Entitic vol] 89.5 fL Normal 80-100 [facility] Comment on above: Performed By: #### B MP, CBC ####[address] Mean Corpuscular HGB Conc 33.8 g/dL Normal 32.0-35.0 [facility] Comment on above: Performed By: #### B MP, CBC ####[address] Monocytes (Bld) [#/Vol] 0.9 10*3/uL High 0.0-0.8 [facility] Comment on above: Performed By: #### B MP, CBC ####[address] Monocytes/100 WBC (Bld) 14.5 % Normal . [facility] Comment on above: Performed By: #### B MP, CBC ####[address] Neutrophils (Bld) [#/Vol] 3.4 10*3/uL Normal 1.8-7.7 [facility] Comment on above: Performed By: #### B MP, CBC ####[address] Neutrophils/100 WBC (Bld) 53.2 % Normal . [facility] Comment on above: Performed By: #### B MP, CBC ####[address] NRBC% 0.1 /100{WBC} Normal 0-0.5 [facility] Comment on above: Performed By: #### B MP, CBC ####[address] Platelet mean volume (Bld) [Entitic vol] 8.3 fL Normal 6.3-10.7 [facility] Comment on above: Performed By: #### B MP, CBC ####[address] Platelets (Bld) [#/Vol] 323 10*3/uL Normal 150-450 [facility] Comment on above: Performed By: #### B MP, CBC ####[address] RBC (Bld) [#/Vol] 3.84 10*6/uL Normal 3.60-5.00 [facility] Comment on above: Performed By: #### B MP, CBC ####[address] WBC (Bld) [#/Vol] 6.4 10*3/uL Normal 3.8-11.6 [facility] Comment on above: Performed By: #### B MP, CBC ####[address] Creatinine [Mass/volume] in Serum or PlasmaOrdered By: Demarcus Barahona on 08-31-2024 Creatinine [Mass/Vol] Creatinine [Mass/v olume] in Serum or Plasma 0.60-1.20 [facility] Eosinophils Auto (Bld) [#/Vo l]Ordered By: Demarcus Barahona on 08-31-2024 Eosinophils (Bld) [#/Vol] Automated eosinophil count 0.0-0.45 [facility] Eosinophils/100 WBC Auto (Bl d)Ordered By: Demarcus Barahona on 08-31-2024 Eosinophils/100 WBC (Bld) Automated eosinophil % . [facility] Erythrocyte distribution wid th Auto (RBC) [Ratio]Ordered By: Demarcus Barahona on 08-31-2024 Erythrocyte distribution width (RBC) [Ratio] Erythrocyte distribution width [Ratio] by Automated count 11.9-15.3 [facility] Glucose [Mass/volume] in Ser um or PlasmaOrdered By: Demarcus Barahona on 08-31-2024 Glucose [Mass/Vol] Glucose [Mass/volume ] in Serum or Plasma 70-100 [facility] Comment on above: ADA recommended refe rence rangeRandom Glucose Reference Range is dependent on time and content of last meal. Glucose of more than 200 mg/dL in a nonstressed, ambulatory subject supports the diagnosis of Diabetes Mellitus. Hematocrit Auto (Bld) [Volum e fraction]Ordered By: Demarcus Barahona on 08-31-2024 Hematocrit (Bld) [Volume fraction] Hematocrit [Volume Fraction] of Blood by Automated count 34.0-46.4 [facility] Hemoglobin [Mass/volume] in BloodOrdered By: Demarcus Barahona on 08-31-2024 Hemoglobin (Bld) [Mass/Vol] Hemoglobin [Mass/volume] in Blood Low 11.8-15.4 [facility] Leukocytes [#/volume] correc benigno for nucleated erythrocytes in Blood by Automated counOrdered By: Demarcus Barahona on 08-31-2024 WBC corrected for nucl RBC Auto (Bld) [#/Vol] Leukocytes [#/volume] corrected for nucleated erythrocytes in Blood by Automated coun 3.8-11.6 [facility] Lymphocytes Auto (Bld) [#/Vo l]Ordered By: Demarcus Barahona on 08-31-2024 Lymphocytes (Bld) [#/Vol] Lymphocytes [#/volume] in Blood by Automated count 1.00-4.8 [facility] Lymphocytes/100 WBC Auto (Bl d)Ordered By: Demarcus Barahona on 08-31-2024 Lymphocytes/100 WBC (Bld) Lymphocytes/100 leukocytes in Blood by Automated count . [facility] MCH Auto (RBC) [Entitic mass ]Ordered By: Demarcus Barahona on 08-31-2024 MCH (RBC) [Entitic mass] MCH [Entitic mass] by Automated count 24.7-34.3 [facility] MCHC Auto (RBC) [Mass/Vol]Or dered By: Demarucs Barahona on 08-31-2024 MCHC (RBC) [Mass/Vol] MCHC [Mass/volume] by Automated count 32.0-35.0 [facility] MCV Auto (RBC) [Entitic vol] Ordered By: Demarcus Barahona on 08-31-2024 MCV (RBC) [Entitic vol] MCV [Entitic volume] by Automated count 80-100 [facility] Monocytes Auto (Bld) [#/Vol] Ordered By: Demarcus Barahona on 08-31-2024 Monocytes (Bld) [#/Vol] Automated blood monocyte count High 0.0-0.8 [facility] Monocytes/100 WBC Auto (Bld) Ordered By: Demarcus Barahona on 08-31-2024 Monocytes/100 WBC (Bld) Automated monocyte % . [facility] Neutrophils Auto (Bld) [#/Vo l]Ordered By: Demarcus Barahona on 08-31-2024 Neutrophils (Bld) [#/Vol] Neutrophils [#/volume] in Blood by Automated count 1.8-7.7 [facility] Neutrophils/100 WBC Auto (Bl d)Ordered By: Demarcus Barahona on 08-31-2024 Neutrophils/100 WBC (Bld) Automated neutrophil % . [facility] No Panel InformationOrdered By: Demarcus Barahona on 08-31-2024 Estimated GFR (CKD-EPI) > 60.0 mL/Min [facility] Creatinine Clearance (Chem 55.68 [facility] Nucleated erythrocytes [Pres ence] in Blood by Automated countOrdered By: Demarcus Barahona on 08-31-2024 Nucleated RBC Auto Ql (Bld) Nucleated erythrocytes [Presence] in Blood by Automated count 0-0.5 [facility] Platelet mean volume Auto (B ld) [Entitic vol]Ordered By: Demarcus Barahona on 08-31-2024 Platelet mean volume (Bld) [Entitic vol] Platelet mean volume [Entitic volume] in Blood by Automated count 6.3-10.7 [facility] Platelets Auto (Bld) [#/Vol] Ordered By: Demarcus Barahona on 08-31-2024 Platelets (Bld) [#/Vol] Platelets [#/volume] in Blood by Automated count 150-450 [facility] Potassium [Moles/volume] in Serum or PlasmaOrdered By: Demarcus Barahona on 08-31-2024 Potassium [Moles/Vol] Potassium [Moles/v olume] in Serum or Plasma 3.5-5.1 [facility] RBC Auto (Bld) [#/Vol]Ordere d By: Demarcus Barahona on 08-31-2024 RBC (Bld) [#/Vol] Erythrocytes [#/volu me] in Blood by Automated count 3.60-5.00 [facility] Serum or plasma anion gap de terminationOrdered By: Demarcus Barahona on 08-31-2024 Anion gap [Moles/Vol] Serum or plasma an ion gap determination 6.0-15.0 [facility] Sodium [Moles/volume] in Ser um or PlasmaOrdered By: Demarcus Barahona on 08-31-2024 Sodium [Moles/Vol] Sodium [Moles/volume ] in Serum or Plasma 136-145 [facility] Urea nitrogen [Mass/volume] in Serum or PlasmaOrdered By: Demarcus Barahona on 08-31-2024 Urea nitrogen [Mass/Vol] Urea nitrogen [Mass/volume] in Serum or Plasma 7-25 [facility] WBC Auto (Bld) [#/Vol]Ordere d By: Demarcus Barahona on 08-31-2024 WBC (Bld) [#/Vol] Leukocytes [#/volume ] in Blood by Automated count 3.8-11.6 [facility] Basic Metabolic Panelon 04-0 Anion gap [Moles/Vol] 12.7 mmol/L Normal 6.0-15.0 [facility] Comment on above: Performed By: #### C KRISTINA, BMP ####[facility] [id number] [place] [address] [facility] Calcium [Mass/Vol] 9.0 mg/dL Normal 8.6-10.3 [facility] Comment on above: Performed By: #### C KRISTINA, BMP ####[place] [id number] [facility] Chloride [Moles/Vol] 107 mmol/L Normal 98-107 [facility] Comment on above: Performed By: #### C BC, BMP ####[place] [id number] [place] [id number] [facility] CO2 [Moles/Vol] 22.4 mmol/L Normal 21.0-31.0 [facility] Comment on above: Performed By: #### C BC, BMP ####[place] [address] [facility] Creatinine [Mass/Vol] 0.83 mg/dL Normal 0.60-1.20 [facility] Comment on above: Performed By: #### C BC, BMP ####[place] [id number] [facility] Creatinine Clr Calc Pharmacy 53.67 Normal [facility] Comment on above: Result Comment: PERF ORMED BY: [facility] [address] [place] [address] PATHOLOGIST [employer] CL[employer] SERA BAIRD M.D. Performed By: #### C , BMP ####[place] [id number] [facility] GFR/1.73 sq M.predicted MDRD (S/P/Bld) [Vol rate/Area] mL/min/{1.73_m2} Normal [facility] Comment on above: Performed By: #### C BC, BMP ####[place] [id number] [facility] Glucose [Mass/Vol] 103 mg/dL High 70-100 [facility] Comment on above: Result Comment: [place] om Glucose Reference Range is dependent on time and content of last meal. Glucose of more than 200 mg/dL in a nonstressed, ambulatory subject supports the diagnosis of Diabetes Mellitus. ADA recommended reference range Performed By: #### C BC, BMP ####[place] [id number] [facility] Potassium [Moles/Vol] 4.1 mmol/L Normal 3.5-5.1 [facility] Comment on above: Performed By: #### C BC, BMP ####[address] Sodium [Moles/Vol] 138 mmol/L Normal 136-145 [facility] Comment on above: Performed By: #### C BC, BMP ####[address] Urea nitrogen [Mass/Vol] 31 mg/dL High 7-25 [facility] Comment on above: Performed By: #### C BC, BMP ####[address] Complete Blood Count Auto Di ffon 08-30-2024 Basophils (Bld) [#/Vol] 0.0 10*3/uL Normal 0.0-0.2 [facility] Comment on above: Result Comment: PERF ORMED BY: [facility] [address] [facility] [place] [address] PATHOLOGIST [employer] CL[employer] SERA BAIRD M.D. Performed By: #### C BC, BMP ####[address] Basophils/100 WBC (Bld) 0.4 % Normal . [facility] Comment on above: Performed By: #### C BC, BMP ####[address] Eosinophils (Bld) [#/Vol] 0.0 10*3/uL Normal 0.0-0.45 [facility] Comment on above: Performed By: #### C BC, BMP ####[address] Eosinophils/100 WBC (Bld) 0.1 % Normal . [facility] Comment on above: Performed By: #### C BC, BMP ####[address] Erythrocyte distribution width (RBC) [Ratio] 14.2 % Normal 11.9-15.3 [facility] [facility] Comment on above: Performed By: #### C BC, BMP ####[address] Hematocrit (Bld) [Volume fraction] 33.1 % Low 34.0-46.4 [facility] Comment on above: Performed By: #### C BC, BMP ####[address] Hemoglobin (Bld) [Mass/Vol] 11.3 g/dL Low 11.8-15.4 [facility] Comment on above: Performed By: #### C BC, BMP ####[address] Lymphocytes (Bld) [#/Vol] 1.0 10*3/uL Normal 1.00-4.8 [facility] Comment on above: Performed By: #### C BC, BMP ####[address] Lymphocytes/100 WBC (Bld) 10.8 % Normal . [facility] Comment on above: Performed By: #### C BC, BMP ####[address] MCH (RBC) [Entitic mass] 30.5 pg Normal 24.7-34.3 [facility] Comment on above: Performed By: #### C BC, BMP ####[address] MCV (RBC) [Entitic vol] 89.1 fL Normal 80-100 [facility] Comment on above: Performed By: #### C BC, BMP ####[address] Mean Corpuscular HGB Conc 34.2 g/dL Normal 32.0-35.0 [facility] Comment on above: Performed By: #### C BC, BMP ####[address] Monocytes (Bld) [#/Vol] 0.9 10*3/uL High 0.0-0.8 [facility] Comment on above: Performed By: #### C BC, BMP ####[address] [address] [facility] Monocytes/100 WBC (Bld) 9.1 % Normal . [facility] Comment on above: Performed By: #### C BC, BMP ####[address] [address] [facility] Neutrophils (Bld) [#/Vol] 7.5 10*3/uL Normal 1.8-7.7 [facility] Comment on above: Performed By: #### C BC, BMP ####[address] [address] [facility] Neutrophils/100 WBC (Bld) 79.6 % Normal . [facility] Comment on above: Performed By: #### C BC, BMP ####[address] [address] [facility] NRBC% 0.1 /100{WBC} Normal 0-0.5 [facility] Comment on above: Performed By: #### C BC, BMP ####[address] [address] [facility] Platelet mean volume (Bld) [Entitic vol] 8.4 fL Normal 6.3-10.7 [facility] Comment on above: Performed By: #### C BC, BMP ####[address] [address] [facility] Platelets (Bld) [#/Vol] 368 10*3/uL Normal 150-450 [facility] Comment on above: Performed By: #### C BC, BMP ####[address] [address] [facility] RBC (Bld) [#/Vol] 3.71 10*6/uL Normal 3.60-5.00 [facility] Comment on above: Performed By: #### C BC, BMP ####[address] [address] [facility] WBC (Bld) [#/Vol] 9.5 10*3/uL Normal 3.8-11.6 [facility] Comment on above: Performed By: #### C , BMP ####[facility] [place] [address] [place] [address] [facility] Pathology study report docum entOrdered By: Sera Baird on 08-30-[address] [facility] Other Phone: Douglas 08-29-2024 L ------ Specimen: [id number] Received: 08/29/24 Status: ROXANERoxann Morelos Num: [id number] Spec Type: Surgical Subm Dr: Demarcus Barahona MD Tissues: A Gross Only (L KNEE) Procedures: Level 1 Gross Age/ Patient Sex Location Account Attending Physician Jeannette Porter 79/F 4N [id number] Demarcus aBrahona MD SPEC NUM: [id number] RECD: 08/29/24 STATUS: JENNIFER MORELOS NUM: [id number] DARNELL: 08/29/240000 [facility] DR: Demarcus Barahona MD ENTERED: 08/29/24 [facility] DR: ERVIN TYPE: Surgical DEPT: S ENTERED BY: [id number] RECV BY: [id number] ORDERED: Level 1 Gross ORDERED: Level 1 [...] yellow-rodriges, glistening, and uniform cut surfaces. GROSS ONLY-J CPT Codes 46859 Specimen: [id number] Received: 08/29/24 Status: JENNIFER Morelos Num: [id number] Spec Type: Surgical Subm Dr: Demarcus Barahona MD Tissues: A Gross Only (L KNEE) Procedures: Level 1 Gross Patient: Jeannette Porter [id number] (Continued) Signed (signature on file) Sera Baird MD 08/30/24 432 Normal [facility] X-ray reportOrdered By: Tomas Tafoya on 08-29-2024 Study report [facility] [place] [address] XRay Report Signed Patient: Jeannette Porter MR#: [id number] : 1945 Acct:[id number] Age/Sex: 79 / F ADM Date: 5 Loc: 4N Room: [address] [place] [address] Type: [place] [facility]: Demarcus Barahona II, MD Copies [...] Tafoya Jr., D.O.08/29/2024 3:38 PM Dictation Location: RADIO-PC-22 Transcribed By: SHANON 08/29/24 1538 Dictated By: Devon Tafoya Jr, DO 08/29/24 1538 Signed By: 08/29/[address] [facility] XR knee LT 2Von 08-29-2024 XR knee LT 2V [facility] [place] [address] [place] [address] XRay Report Signed Patient: Jeannette Porter MR#: [id number] 4 : 1945 Acct:[id number] Age/Sex: 79 / F ADM Date: 08/29/24 Loc: Room: [address] [place] [address] Type: [facility] Attending Dr: Demarcus Barahona II, MD Copies [...] Tafoya Jr., D.O.08/29/2024 3:38 PM Dictation Location: RADIO-PC-22 Transcribed By: SHANON 08/29/24 1538 Dictated By: Devon Tafoya Jr, DO 08/29/24 1538 Signed By: 08/29/24 1538 Normal [facility] X-ray reportOrdered By: Samia Fink on 08-17-2024 Study report [facility] [address] [place] [address] XRay Report Signed Patient: Jeannette Porter MR#: [id number] : 1945 Acct:[id number] Age/Sex: 79 / F ADM Date: 5 Loc: SOXD Room: Type: REG CLI Attending Dr: Demarcus Barahona II, MD Copies to: Demarcus Barahona MD~ Ordering Provider: Demarcus Barahona MD Date of Service: 08/17/24 XR/XR femur LT 2V*: M17.12 - Unilateral primary osteoarthritis, left knee ([id number]) XR/XR tibia fibula LT 2V*: M17.12 - [...] Nolvia Fink M.D.08/17/2024 3:56 PM Dictation Location: [place] [address] Transcribed By: [facility] 08/17/24 155 Dictated By: Nolvia Fikn MD 08/17/24 1553 Signed By: 08/17/[address] [facility] Work Phone: XR femur LT 2V*on 08-17-2024 XR femur LT 2V* [facility] [address] [place] [address] XRay Report Signed Patient: Jeannette Porter MR#: [id number] 4 : 1945 Acct:[id number] Age/Sex: 79 / F ADM Date: 08/17/24 Loc: [facility] Room: Type: REG CLI Attending Dr: Demarcus Barahona II, MD Copies to: Demarcus Barahona MD Ordering Provider: Demarcus Barahona MD Date of Service: 08/17/24 XR/XR femur LT 2V*: M17.12 - Unilateral primary osteoarthritis, left knee ([id number]) XR/XR tibia fibula LT 2V*: M17.12 - [...] Nolvia Fink M.D.08/17/2024 3:56 PM Dictation Location: [place] [address] Transcribed By: [facility] 08/17/24 155 Dictated By: Nolvia Fink MD 08/17/24 1553 Signed By: 08/17/24 155 Normal [facility] Anisocytosis LM Ql (Bld)Orde red By: Demarcus Barahona on 08-11-2024 Anisocytosis Ql (Bld) Anisocytosis [Pres ence] in Blood by Light microscopy [facility] Appearance of UrineOrdered B y: Demarcus Barahona on 08-11-2024 Appearance (U) Urine appearance Clear [facility] Bacteria [Presence] in Urine by AutomatedOrdered By: Demarcus Barahona on 08-11-2024 Bacteria Auto Ql (U) Bacteria [Presence] in Urine by Automated High None Seen [facility] Basic Metabolic Panelon 07-29 Anion gap [Moles/Vol] 12.5 mmol/L Normal 6.0-15.0 Th e [facility] Comment on above: Performed By: #### S CAN CBC, BMP #### [place] [address] [place] #### FRUC #### [facility] , Calcium [Mass/Vol] 10.7 mg/dL High 8.6-10.3 [facility] Comment on above: Result Comment: PERF ORMED BY: [place] [address] PATHOLOGIST [employer] CLERK SERA BAIRD M.D. Performed By: #### S CAN CBC, BMP #### [address] #### FRUC #### [facility] , Chloride [Moles/Vol] 105 mmol/L Normal 98-107 [facility] Comment on above: Performed By: #### S CAN CBC, BMP #### [place] [address] [place] #### FRUC #### [facility] , CO2 [Moles/Vol] 25.0 mmol/L Normal 21.0-31.0 [facility] Comment on above: Performed By: #### S CAN CBC, BMP #### [place] [address] [place] #### FRUC #### [facility] , Creatinine [Mass/Vol] 0.65 mg/dL Normal 0.60-1.20 [facility] Comment on above: Performed By: #### S CAN CBC, BMP #### [place] [address] [place] #### FRUC #### [facility] , GFR/1.73 sq M.predicted MDRD (S/P/Bld) [Vol rate/Area] mL/min/{1.73_m2} Normal [facility] Comment on above: Performed By: #### S CAN CBC, BMP #### [place] [address] [place] #### FRUC #### [facility] , Glucose [Mass/Vol] 91 mg/dL Normal 70-100 [facility] Comment on above: Result Comment: [place] Glucose Reference Range is dependent on time and content of last meal. Glucose of more than 200 mg/dL in a nonstressed, ambulatory subject supports the diagnosis of Diabetes Mellitus. ADA recommended reference range Performed By: #### S CAN CBC, BMP #### [place] [address] [place] #### FRUC #### [facility] , Potassium [Moles/Vol] 4.5 mmol/L Normal 3.5-5.1 [facility] Comment on above: Performed By: #### S CAN CBC, BMP #### [place] [address] [place] #### FRUC #### [facility] , Sodium [Moles/Vol] 138 mmol/L Normal 136-145 [facility] Comment on above: Performed By: #### S CAN CBC, BMP #### [facility] [place] [facility] [address] [place] [address] [place] #### FRUC #### [facility] , Urea nitrogen [Mass/Vol] 19 mg/dL Normal 7-25 [facility] Comment on above: Performed By: #### S CAN CBC, BMP #### [place] [address] [place] #### FRUC #### [facility] , Basophils Auto (Bld) [#/Vol] Ordered By: Demarcus Barahona on 08-11-2024 Basophils (Bld) [#/Vol] Automated basophil count 0.0-0.2 [facility] Basophils/100 WBC Auto (Bld) Ordered By: Demarcus Barahona on 08-11-2024 Basophils/100 WBC (Bld) Automated basophil % . [facility] Bilirubin Test strip Ql (U)O rdered By: Demarcus Barahona on 08-11-2024 Bilirubin Ql (U) Bilirubin.total [Pre sence] in Urine by Test strip Negative [facility] Calcium [Mass/volume] in Ser um or PlasmaOrdered By: Demarcus Barahona on 08-11-2024 Calcium [Mass/Vol] Calcium [Mass/volume ] in Serum or Plasma High 8.6-10.3 [facility] Carbon dioxide, total [Moles /volume] in Serum or PlasmaOrdered By: Demarcus Barahona on 08-11-2024 CO2 [Moles/Vol] Carbon dioxide, tota l [Moles/volume] in Serum or Plasma 21.0-31.0 [facility] Chloride [Moles/volume] in S kee or PlasmaOrdered By: Demarcus Barahona on 08-11-2024 Chloride [Moles/Vol] Chloride [Moles/vol ume] in Serum or Plasma 98-107 [facility] Color Auto (U)Ordered By: Reva Barahona on 08-11-2024 Color (U) Color of Urine by Auto Yellow Fi relaCounts include 234 beds at the [facility] Creatinine [Mass/volume] in Serum or PlasmaOrdered By: Demarcus Barahona on 08-11-2024 Creatinine [Mass/Vol] Creatinine [Mass/v olume] in Serum or Plasma 0.60-1.20 [facility] Dipstick and Microscopicon 0 08-11-2024 Appearance (U) Clear Normal Clear [facility] Comment on above: Order Comment: Name Collection Type:: Clean-Voided Midstream Performed By: #### C UU, ADDONUAPLUS ####[facility] Bacteria,Urine 1+ High None Seen [facility] Comment on above: Order Comment: Name Collection Type:: Clean-Voided Midstream Performed By: #### C UU, ADDONUAPLUS ####[facility] [address] Bilirubin,Urine Negative Normal Negative [facility] Comment on above: Order Comment: Name Collection Type:: Clean-Voided Midstream Performed By: #### C UU, ADDONUAPLUS ####[place] [id number] [facility] Color (U) Light-Yellow Normal Yellow [facility] Comment on above: Order Comment: Name Collection Type:: Clean-Voided Midstream Performed By: #### C UU, ADDONUAPLUS ####[address] [address] [facility] Glucose Ql (U) Normal Normal Normal [facility] Comment on above: Order Comment: Name Collection Type:: Clean-Voided Midstream Performed By: #### C UU, ADDONUAPLUS ####[address] [address] [place] Hyaline Casts,Urine 0-8 Normal 0-8 [facility] Comment on above: Order Comment: Name Collection Type:: Clean-Voided Midstream Performed By: #### C UU, ADDONUAPLUS ####[place] [id number] [facility] Ketones Ql (U) Negative Normal Negative [facility] Comment on above: Order Comment: Name Collection Type:: Clean-Voided Midstream Performed By: #### C UU, ADDONUAPLUS ####[address] [address] [facility] Leukocyte esterase Test strip Ql (U) 3+ High Negative [facility] Comment on above: Order Comment: Name Collection Type:: Clean-Voided Midstream Performed By: #### C UU, ADDONUAPLUS ####[place] [id number] [facility] Mucus,Urine Rare Normal [facility] Comment on above: Order Comment: Name Collection Type:: Clean-Voided Midstream Result Comment: PERF ORMED BY: [facility] [address] [place] [id number] PATHOLOGIST [employer] CLERK SERA BAIRD M.D. Performed By: #### C UU, ADDONUAPLUS ####[place] [address] [facility] Nitrite,Urine Positive High Negative [facility] Comment on above: Order Comment: Name Collection Type:: Clean-Voided Midstream Performed By: #### C UU, ADDONUAPLUS ####[place] [address] [facility] Occult Blood,Urine Negative Normal Negative [facility] Comment on above: Order Comment: Name Collection Type:: Clean-Voided Midstream Result Comment: PERF ORMED BY: [facility] [address] [place] [address] PATHOLOGIST [employer] CLERK SERA BAIRD M.D. Performed By: #### C UU, ADDONUAPLUS ####[place] [id number] [facility] pH (U) 6.0 [pH] Normal 5.0-9.0 [facility] Comment on above: Order Comment: Name Collection Type:: Clean-Voided Midstream Performed By: #### C UU, ADDONUAPLUS ####[place] [id number] [facility] Protein,Urine Negative Normal Negative [facility] Comment on above: Order Comment: Name Collection Type:: Clean-Voided Midstream Performed By: #### C UU, ADDONUAPLUS ####[address] RBC,Urine 1-2 Normal 0-4 [facility] Comment on above: Order Comment: Name Collection Type:: Clean-Voided Midstream Performed By: #### C UU, ADDONUAPLUS ####[place] [id number] [facility] Specificy Duson,Urine 1.013 Normal 1.001-1.03 0 [facility] Comment on above: Order Comment: Name Collection Type:: Clean-Voided Midstream Performed By: #### C UU, ADDONUAPLUS ####[place] [id number] [facility] Squamous Epithelial Cell,Urine 1-2 Normal 0-2 [facility] Comment on above: Order Comment: Name Collection Type:: Clean-Voided Midstream Performed By: #### C UU, ADDONUAPLUS ####[facility] [place] [id number] Urobilinogen,Urine Normal Normal Normal [facility] Comment on above: Order Comment: Name Collection Type:: Clean-Voided Midstream Performed By: #### C UU, ADDONUAPLUS ####[facility] [address] WBC CLUMP, Urine Occasional High None Seen [facility] Comment on above: Order Comment: Name Collection Type:: Clean-Voided Midstream Performed By: #### C UU, ADDONUAPLUS ####[place] [id number] [address] WBC,Urine 10-19 High 0-4 [facility] Comment on above: Order Comment: Name Collection Type:: Clean-Voided Midstream Performed By: #### C UU, ADDONUAPLUS ####[address] Eosinophils Auto (Bld) [#/Vo l]Ordered By: Demarcus Barahona on 08-11-2024 Eosinophils (Bld) [#/Vol] Automated eosinophil count 0.0-0.45 [facility] Eosinophils/100 WBC Auto (Bl d)Ordered By: Demarcus Barahona on 08-11-2024 Eosinophils/100 WBC (Bld) Automated eosinophil % . [facility] Epithelial cells.squamous [# /area] in Urine sediment by Automated countOrdered By: Demarcus Barahona on 08-11-2024 Epithelial cells.squamous Auto (Urine sed) [#/Area] Epithelial cells.squamous [#/area] in Urine sediment by Automated count 0-2 [facility] Erythrocyte distribution wid th Auto (RBC) [Ratio]Ordered By: Demarcus Barahona on 08-11-2024 Erythrocyte distribution width (RBC) [Ratio] Erythrocyte distribution width [Ratio] by Automated count 11.9-15.3 [facility] Erythrocyte morphology findi ng [Identifier] in BloodOrdered By: Demarcus Barahona on 08-11-2024 RBC morphology finding Nom (Bld) RBC morphology [facility] Erythrocytes [#/area] in Uri ne sediment by Automated countOrdered By: Demarcus Barahona on 08-11-2024 RBC Auto (Urine sed) [#/Area] Erythrocytes [#/area] in Urine sediment by Automated count 0-4 [facility] Fructosamineon 08-11-2024 Fructosamine 230 umol/L Normal 0-285 [facility] Comment on above: Result Comment: Publ ished reference interval for apparently healthy subjects between age 20 and 60 is 205 - 285 umol/L and in a poorly controlled diabetic population is 228 - 563 umol/L with a mean of 396 umol/L. Performed at: [facility] [address] [place], [place] [id number] Lifestyle Director: Hollis Sanchez PhD, Phone: [phone] PERFORMED BY: [facility] [address] [place] [address] PATHOLOGIST [employer] CLERK SERA BAIRD M.D. Performed By: #### S CAN CBC, BMP ####[facility] [place] [id number]#### FRUC ####[facility] , Fructosamine [Moles/volume] in Serum or PlasmaOrdered By: Demarcus Barahona on 08-11-2024 Fructosamine [Moles/Vol] Fructosamine [Moles/volume] in Serum or Plasma 0-285 [facility] Comment on above: Published reference interval for apparently healthysubjects between age 20 and 60 is 205 - 285 umol/L and in apoorly controlled diabetic population is 228 - 563 umol/Lwith a mean of 396 umol/L.Performed at: [facility] [id number] [place], [place] [id number] Director: Hollis Sanchez PhD, Phone: [phone] Glucose [Mass/volume] in Ser um or PlasmaOrdered By: Demarcus Barahona on 08-11-2024 Glucose [Mass/Vol] Glucose [Mass/volume ] in Serum or Plasma 70-100 [facility] Comment on above: ADA recommended refe [...] [Mass/volume] in Urine by Test strip Normal [facility] Hematocrit Auto (Bld) [Volum e fraction]Ordered By: Demarcus Barahona on 08-11-2024 Hematocrit (Bld) [Volume fraction] Hematocrit [Volume Fraction] of Blood by Automated count 34.0-46.4 [facility] Hemoglobin Test strip Ql (U) Ordered By: Demarcus Barahona on 08-11-2024 Hemoglobin Ql (U) Hemoglobin [Presence ] in Urine by Test strip Negative [facility] Hemoglobin [Mass/volume] in BloodOrdered By: Demarcus Barahona on 08-11-2024 Hemoglobin (Bld) [Mass/Vol] Hemoglobin [Mass/volume] in Blood 11.8-15.4 [facility] Hyaline casts [#/area] in Ur ine sediment by Automated countOrdered By: Demarcus Barahona on 08-11-2024 Hyaline casts Auto (Urine sed) [#/Area] Hyaline casts [#/area] in Urine sediment by Automated count 0-8 [facility] Ketones Test strip Ql (U)Ord ered By: Demarcus Barahona on 08-11-2024 Ketones Ql (U) Ketones [Presence] i n Urine by Test strip Negative [facility] Leukocyte clumps [Presence] in Urine by AutomatedOrdered By: Demarcus Barahona on 08-11-2024 Leukocyte clumps Auto Ql (U) Leukocyte clumps [Presence] in Urine by Automated High None Seen [facility] Leukocyte esterase [Presence ] in Urine by Test stripOrdered By: Demarcus Barahona on 08-11-2024 Leukocyte esterase Test strip Ql (U) Leukocyte esterase [Presence] in Urine by Test strip High Negative [facility] Leukocytes [#/area] in Urine sediment by Automated countOrdered By: Demarcus Barahona on 08-11-2024 WBC Auto (Urine sed) [#/Area] Leukocytes [#/area] in Urine sediment by Automated count High 0-4 [facility] Leukocytes [#/volume] correc benigno for nucleated erythrocytes in Blood by Automated counOrdered By: Demarcus Barahona on 08-11-2024 WBC corrected for nucl RBC Auto (Bld) [#/Vol] Leukocytes [#/volume] corrected for nucleated erythrocytes in Blood by Automated coun 3.8-11.6 [facility] Lymphocytes Auto (Bld) [#/Vo l]Ordered By: Demarcus Barahona on 08-11-2024 Lymphocytes (Bld) [#/Vol] Lymphocytes [#/volume] in Blood by Automated count 1.00-4.8 [facility] Lymphocytes/100 WBC Auto (Bl d)Ordered By: Demarcus Barahona on 08-11-2024 Lymphocytes/100 WBC (Bld) Lymphocytes/100 leukocytes in Blood by Automated count . [facility] MCH Auto (RBC) [Entitic mass ]Ordered By: Demarcus Barahona on 08-11-2024 MCH (RBC) [Entitic mass] MCH [Entitic mass] by Automated count 24.7-34.3 [facility] MCHC Auto (RBC) [Mass/Vol]Or dered By: Demarcus Barahona on 08-11-2024 MCHC (RBC) [Mass/Vol] MCHC [Mass/volume] by Automated count 32.0-35.0 [facility] MCV Auto (RBC) [Entitic vol] Ordered By: Demarcus Barahona on 08-11-2024 MCV (RBC) [Entitic vol] MCV [Entitic volume] by Automated count 80-100 [facility] Microcytes LM Ql (Bld)Ordere d By: Demarcus Barahona on 08-11-2024 Microcytes Ql (Bld) Microcytes [Presence ] in Blood by Light microscopy [facility] Monocytes Auto (Bld) [#/Vol] Ordered By: Demarcus Barahona on 08-11-2024 Monocytes (Bld) [#/Vol] Automated blood monocyte count 0.0-0.8 [facility] Monocytes/100 WBC Auto (Bld) Ordered By: Demarcus Barahona on 08-11-2024 Monocytes/100 WBC (Bld) Automated monocyte % . [facility] Mucus [Presence] in Urine by AutomatedOrdered By: Demarcus Barahona on 08-11-2024 Mucus Auto Ql (U) Mucus [Presence] in Urine by Automated [facility] Neutrophils Auto (Bld) [#/Vo l]Ordered By: Demarcus Barahona on 08-11-2024 Neutrophils (Bld) [#/Vol] Neutrophils [#/volume] in Blood by Automated count 1.8-7.7 [facility] Neutrophils/100 WBC Auto (Bl d)Ordered By: Demarcus Barahona on 08-11-2024 Neutrophils/100 WBC (Bld) Automated neutrophil % . [facility] Nitrite Test strip Ql (U)Ord ered By: Demarcus Barahona on 08-11-2024 Nitrite Ql (U) Nitrite [Presence] i n Urine by Test strip High Negative [facility] No Panel InformationOrdered By: Demarcus Barahona on 08-11-2024 Estimated GFR (CKD-EPI) > 60.0 mL/Min [facility] Creatinine Clearance (Chem N/A [facility] Nucleated erythrocytes [Pres ence] in Blood by Automated countOrdered By: Demarcus Barahona on 08-11-2024 Nucleated RBC Auto Ql (Bld) Nucleated erythrocytes [Presence] in Blood by Automated count 0-0.5 [facility] Platelet adequacy [Presence] in Blood by Light microscopyOrdered By: Demarcus Barahona on 08-11-2024 Platelets LM Ql (Bld) Platelet adequacy [Presence] in Blood by Light microscopy Normal [facility] Platelet mean volume Auto (B ld) [Entitic vol]Ordered By: Demarcus Barahona on 08-11-2024 Platelet mean volume (Bld) [Entitic vol] Platelet mean volume [Entitic volume] in Blood by Automated count 6.3-10.7 [facility] Platelet morphology finding [Identifier] in BloodOrdered By: Demarcus Barahona on 08-11-2024 Platelet morphology finding Nom (Bld) Platelet morphology finding [Identifier] in Blood Normal [facility] Platelets Auto (Bld) [#/Vol] Ordered By: Demarcus Barahona on 08-11-2024 Platelets (Bld) [#/Vol] Platelets [#/volume] in Blood by Automated count 150-450 [facility] Polychromasia [Presence] in Blood by Light microscopyOrdered By: Demarcus Barahona on 08-11-2024 Polychromasia LM Ql (Bld) Polychromasia [Presence] in Blood by Light microscopy [facility] Potassium [Moles/volume] in Serum or PlasmaOrdered By: Demarcus Barahona on 08-11-2024 Potassium [Moles/Vol] Potassium [Moles/v olume] in Serum or Plasma 3.5-5.1 [facility] Protein Test strip (U) [Mass /Vol]Ordered By: Demarcus Barahona on 08-11-2024 Protein (U) [Mass/Vol] Protein [Mass/vol ume] in Urine by Test strip Negative [facility] RBC Auto (Bld) [#/Vol]Ordere d By: Demarcus Barahona on 08-11-2024 RBC (Bld) [#/Vol] Erythrocytes [#/volu me] in Blood by Automated count 3.60-5.00 [facility] Scan and CBCon 08-11-2024 Anisocytosis Ql (Bld) Moderate Normal [facility] Comment on above: Performed By: #### S CAN CBC, BMP ####[place] [address] [place]#### FRUC ####[facility] , Basophils (Bld) [#/Vol] 0.1 10*3/uL Normal 0.0-0.2 [facility] Comment on above: Performed By: #### S CAN CBC, BMP ####[place] [address] [place]#### FRUC ####[facility] , Basophils/100 WBC (Bld) 1.4 % Normal . [facility] Comment on above: Performed By: #### S CAN CBC, BMP ####[place] [address] [place]#### FRUC ####[facility] , Eosinophils (Bld) [#/Vol] 0.2 10*3/uL Normal 0.0-0.45 [facility] Comment on above: Performed By: #### S CAN CBC, BMP ####[place] [address] [place]#### FRUC ####[facility] , Eosinophils/100 WBC (Bld) 4.1 % Normal . [facility] Comment on above: Performed By: #### S CAN CBC, BMP ####[address]#### FRUC ####[facility] , Erythrocyte distribution width (RBC) [Ratio] 14.6 % Normal 11.9-15.3 [facility] Comment on above: Performed By: #### S CAN CBC, BMP ####[address]#### FRUC ####[facility] , Hematocrit (Bld) [Volume fraction] 40.3 % Normal 34.0-46.4 [facility] Comment on above: Performed By: #### S CAN CBC, BMP ####[address]#### FRUC ####[facility] , Hemoglobin (Bld) [Mass/Vol] 13.9 g/dL Normal 11.8-15.4 [facility] Comment on above: Performed By: #### S CAN CBC, BMP ####[address]#### FRUC ####[facility] , Lymphocytes (Bld) [#/Vol] 1.4 10*3/uL Normal 1.00-4.8 [facility] Comment on above: Performed By: #### S CAN CBC, BMP ####[place] [address] [place]#### FRUC ####[facility] , Lymphocytes/100 WBC (Bld) 32.4 % Normal . [facility] Comment on above: Performed By: #### S CAN CBC, BMP ####[address] [place] [address] [place]#### FRUC ####[facility] , MCH (RBC) [Entitic mass] 30.5 pg Normal 24.7-34.3 [facility] Comment on above: Performed By: #### S CAN CBC, BMP ####[address]#### FRUC ####[facility] , MCV (RBC) [Entitic vol] 88.4 fL Normal 80-100 [facility] Comment on above: Performed By: #### S CAN CBC, BMP ####[address]#### FRUC ####[facility] , Mean Corpuscular HGB Conc 34.6 g/dL Normal 32.0-35.0 [facility] Comment on above: Performed By: #### S CAN CBC, BMP ####[address]#### FRUC ####[facility] , Microcytosis Moderate Normal [facility] Comment on above: Performed By: #### S CAN CBC, BMP ####[address]#### FRUC ####[facility] , Monocytes (Bld) [#/Vol] 0.4 10*3/uL Normal 0.0-0.8 [facility] Comment on above: Performed By: #### S CAN CBC, BMP ####[place] [address] [place]#### FRUC ####[facility] , Monocytes/100 WBC (Bld) 8.3 % Normal . [facility] Comment on above: Performed By: #### S CAN CBC, BMP ####[place] [address] [place]#### FRUC ####[facility] , Neutrophils (Bld) [#/Vol] 2.3 10*3/uL Normal 1.8-7.7 [facility] Comment on above: Performed By: #### S CAN CBC, BMP ####[address]#### FRUC ####[facility] , Neutrophils/100 WBC (Bld) 53.8 % Normal . [facility] Comment on above: Performed By: #### S CAN CBC, BMP ####[place] [address] [place]#### FRUC ####[facility] , NRBC% 0.1 /100{WBC} Normal 0-0.5 [facility] Comment on above: Performed By: #### S CAN CBC, BMP ####[place] [address] [place]#### FRUC ####[facility] , Platelet Estimate Normal Normal Normal [facility] Comment on above: Performed By: #### S CAN CBC, BMP ####[place] [address] [place]#### FRUC ####[facility] , Platelet mean volume (Bld) [Entitic vol] 7.9 fL Normal 6.3-10.7 [facility] Comment on above: Performed By: #### S CAN CBC, BMP ####[place] [address] [place]#### FRUC ####[facility] , Platelet Morphology Normal Normal Normal [facility] Comment on above: Result Comment: PERF ORMED BY: [address] [place] [address] PATHOLOGIST [employer] CLERK SERA BAIRD M.D. Performed By: #### S CAN CBC, BMP ####[address] [place] [address] [place]#### FRUC ####[facility] , Platelets (Bld) [#/Vol] 449 10*3/uL Normal 150-450 [facility] Comment on above: Performed By: #### S CAN CBC, BMP ####[address]#### FRUC ####[facility] , Polychromasia Slight Normal [facility] Comment on above: Performed By: #### S CAN CBC, BMP ####[place] [address] [place]#### FRUC ####[facility] , RBC (Bld) [#/Vol] 4.56 10*6/uL Normal 3.60-5.00 [facility] Comment on above: Performed By: #### S CAN CBC, BMP ####[address]#### FRUC ####[facility] , WBC (Bld) [#/Vol] 4.3 10*3/uL Normal 3.8-11.6 [facility] Comment on above: Performed By: #### S CAN CBC, BMP ####[address]#### FRUC ####[facility] , Serum or plasma anion gap de terminationOrdered By: Demarcus Barahona on 08-11-2024 Anion gap [Moles/Vol] Serum or plasma an ion gap determination 6.0-15.0 [facility] Sodium [Moles/volume] in Ser um or PlasmaOrdered By: Demarcus Barahona on 08-11-2024 Sodium [Moles/Vol] Sodium [Moles/volume ] in Serum or Plasma 136-145 [facility] Specific gravity Test strip (U) [Rel density]Ordered By: Demarcus Barahona on 08-11-2024 Specific gravity (U) [Rel density] Specific gravity of Urine by Test strip 1.001-1.[address] [facility] Urea nitrogen [Mass/volume] in Serum or PlasmaOrdered By: Demarcus Barahona on 08-11-2024 Urea nitrogen [Mass/Vol] Urea nitrogen [Mass/volume] in Serum or Plasma 12-22 [facility] Urine Cultureon 08-11-2024 Bacteria identified Cx Nom (U) ORGANISM: Escherichia coli (O:ESCCOL) Hickman Count >100,000 Aerobic RODRIGO Charge (NMIC56) SUSCEPTIBILITY [...] RESISTANT TO ALL B-LACTAM DRUGS. PERFORMED BY: [facility] [address] [place] [address] PATHOLOGIST [employer] STORAGE CLERK SERA BAIRD M.D. Normal [facility] Comment on above: Performed By: #### C ELSA GODINEZ ####[facility] [address] [place] [address] [facility] Urine cultureOrdered By: Gary Barahona on 08-11-2024 Bacteria identified Cx Nom (U) Escherichia coli Abnormal [facility] Urobilinogen Test strip (U) [Mass/Vol]Ordered By: Demarcus Barahona on 08-11-2024 Urobilinogen (U) [Mass/Vol] Urobilinogen [Mass/volume] in Urine by Test strip Normal [facility] WBC Auto (Bld) [#/Vol]Ordere d By: Demarcus Barahona on 08-11-2024 WBC (Bld) [#/Vol] Leukocytes [#/volume ] in Blood by Automated count 3.8-11.6 [facility] pH Test strip (U)Ordered By: Demarcus Barahona on 08-11-2024 pH (U) pH of Urine by Test strip 5.0-9.0 [facility] Office Visiton 07-03-2024 Follow-up visit [id number] Jeannette Porter 1945 F Date Provider Department Center 07/03/2024 [facility] Family History Problem Relation Age of Onset Other Father Family Status - Relation Status Age at Father Level of Service:37569 CO OFFICE/OUTPATIENT ESTABLISHED MOD MDM 30 MIN Normal [facility] BASIC METABOLIC PANELon 06-01 BUN/CREATININE RATIO SEE NOTE: Normal 6-22 [facility] Comment on above: Order Comment: FASTI NG:NO FASTING: NO Result Comment: Not Reported: BUN and Creatinine are within reference range. Performed By: #### 1 0165, 1759 #### [facility] [address], [address] [place] [address] Credit Card Interviewer: Anthony Batista MD Calcium [Mass/Vol] 10.2 mg/dL Normal 8.6-10.4 [facility] Comment on above: Order Comment: FASTI NG:NO FASTING: NO Performed By: #### 1 0165, 1759 #### [facility] [address], [address] [place] [address] Credit Card Interviewer: Anthony Batista MD Chloride [Moles/Vol] 105 mmol/L Normal 98-110 [facility] Comment on above: Order Comment: FASTI NG:NO FASTING: NO Performed By: #### 1 0165, 1759 #### [facility] [address], [address] [place] [address] Credit Card Interviewer: Anthony Batista MD CO2 [Moles/Vol] 24 mmol/L Normal 20-32 [facility] Comment on above: Order Comment: FASTI NG:NO FASTING: NO Performed By: #### 1 0165, 1759 #### [facility] [place] [address] Credit Card Interviewer: Anthony Batista MD Creatinine [Mass/Vol] 0.69 mg/dL Normal 0.60-1.[address] [facility] Comment on above: Order Comment: FASTI NG:NO FASTING: NO Performed By: #### 1 0165, 1759 #### [facility] [place] [address] Credit Card Interviewer: Anthony Batista MD GFR/1.73 sq M.predicted among non-blacks MDRD (S/P/Bld) [Vol rate/Area] 89 mL/min/{1.73_m2} Normal > OR = 60 [facility] Comment on above: Order Comment: FASTI NG:NO FASTING: NO Performed By: #### 1 0165, 1759 #### [facility] [place] [address] Credit Card Interviewer: Anthony Batista MD Glucose [Mass/Vol] 97 mg/dL Normal 65-139 [facility] Comment on above: Order Comment: FASTI NG:NO FASTING: NO Result Comment: Non-fasting reference interval Performed By: #### 1 0165, 1759 #### [facility] [place] [address] Credit Card Interviewer: Anthony Batista MD Potassium [Moles/Vol] 4.5 mmol/L Normal 3.5-5.[address] [facility] Comment on above: Order Comment: FASTI NG:NO FASTING: NO Performed By: #### 1 0165, 1759 #### [facility] [place] [address] Credit Card Interviewer: Anthony Batista MD Sodium [Moles/Vol] 137 mmol/L Normal 135-146 [facility] Comment on above: Order Comment: FASTI NG:NO FASTING: NO Performed By: #### 1 0165, 1759 #### [facility] [place] [address] Credit Card Interviewer: Anthony Batista MD Urea nitrogen [Mass/Vol] 23 mg/dL Normal 7-25 [facility] Comment on above: Order Comment: FASTI NG:NO FASTING: NO Performed By: #### 1 0165, 175 #### [facility] [place] [address] Credit Card Interviewer: Anthony Batista MD CBC (H/H, RBC, INDICES, WBC, PLT)on 06-21-2024 Erythrocyte distribution width (RBC) [Ratio] 13.3 % Normal 11.0-15.0 [facility] Comment on above: Performed By: #### 1 0165, 1759 #### [facility] [place] [address] Credit Card Interviewer: Anthony Batista MD Hematocrit (Bld) [Volume fraction] 41.7 % Normal 35.0-45.0 [facility] Comment on above: Performed By: #### 1 0165, 1759 #### [facility] [place] [address] Credit Card Interviewer: Anthony Batista MD Hemoglobin (Bld) [Mass/Vol] 13.7 g/dL Normal 11.7-15.5 [facility] Comment on above: Performed By: #### 1 0165, 1759 #### [facility] [place] [address] Credit Card Interviewer: Anthony Batista MD MCH (RBC) [Entitic mass] 29.5 pg Normal 27.0-33.0 [facility] Comment on above: Performed By: #### 1 0165, 1759 #### [facility] [place] [address] Credit Card Interviewer: Anthony Batista MD MCHC (RBC) [Mass/Vol] 32.9 g/dL Normal 32.0-36.[address] [facility] Comment on above: Result Comment: For adults, a slight decrease in the calculated MCHC value (in the range of 30 to 32 g/dL) is most likely not clinically significant; however, it should be interpreted with caution in correlation with other red cell parameters and the patient's clinical condition. Performed By: #### 1 0165, 175 #### [facility] [place] [address] Credit Card Interviewer: Anthony Batista MD MCV (RBC) [Entitic vol] 89.9 fL Normal 80.0-100.0 [facility] Comment on above: Performed By: #### 1 016, 175 #### [facility] [place] [address] Credit Card Interviewer: Anthony Batista MD Platelet mean volume (Bld) [Entitic vol] 10.4 fL Normal 7.5-12.5 [facility] Comment on above: Performed By: #### 1 016, 175 #### [facility] [place] [address] Credit Card Interviewer: Anthony Batista MD Platelets (Bld) [#/Vol] 453 10*3/uL High 140-400 [facility] Comment on above: Performed By: #### 1 016, 175 #### [facility] [place] [address] Credit Card Interviewer: Anthony Batista MD RBC (Bld) [#/Vol] 4.64 10*6/uL Normal 3.80-5.10 [facility] Comment on above: Performed By: #### 1 016, 175 #### [facility] [place] [id number] Credit Card Interviewer: Anthony Batista MD WBC (Bld) [#/Vol] 6.2 10*3/uL Normal 3.8-10.8 [facility] Comment on above: Performed By: #### 1 0165, 1759 #### [facility] [address], [address] [place] [address] Credit Card Interviewer: Anthony Batista MD A1C with Estimated Average Carmen luon 06-08-2024 Glucose [Mass/Vol] 105 mg/dL Normal [facility] Comment on above: Result Comment: PERF ORMED BY: [place] [address] PATHOLOGIST [employer] STORAGE CLERK SERA BAIRD M.D. Performed By: #### N ICOTINE #### [facility] , #### ALB, HGB, [id number], CUMRSA, A1C WT eA #### [facility] [address] [place] [address] HbA1c (Bld) [Mass fraction] 5.3 % Normal 4.3-5.6 [facility] Comment on above: Result Comment: Incr eased risk for diabetes: 5.7 - 6.4 diabetes: >6.4 glycemic control for adults with diabetes: <7.0 Performed By: #### N ICOTINE #### [facility] , #### ALB, HGB, [id number], CUMRSA, A1C WTH eA #### [facility] [address] [place] [address] [place] Albumin Levelon 06-08-2024 Albumin [Mass/Vol] 4.2 g/dL Normal 3.5-5.7 [facility] Comment on above: Performed By: #### N ICOTINE #### [facility] , #### ALB, HGB, [id number], CUMRSA, A1C WTH eA #### [facility] [address] [place] [address] [place] Albumin [Mass/volume] in Ser um or Plasma by Bromocresol green (BCG) dye binding methoOrdered By: Demarcus Barahona on 06-08-2024 Albumin BCG dye [Mass/Vol] Albumin [Mass/volume] in Serum or Plasma by Bromocresol green (BCG) dye binding metho 3.5-5.7 [facility] Blood estimated average gluc ose determination by estimation from glycated hemoglobinOrdered By: Demarcus Barahona on 06-08-2024 Average glucose Estimated from glycated hemoglobin (Bld) [Mass/Vol] Glucose mean value [Mass/volume] in Blood Estimated from glycated hemoglobin [facility] Cotinine [Mass/volume] in Se rum or PlasmaOrdered By: Demarcus Barahona on 06-08-2024 Cotinine [Mass/Vol] Cotinine [Mass/volum e] in Serum or Plasma . [facility] Comment on above: This test was develo ped and its performance characteristicsdetermined by [employer]. It has not been cleared orapproved by the Food and Drug Administration.Cotinine levels greater than 20.0 are consistent with theuse of tobacco or tobacco cessation products.Performed at: [facility] [id number] Director: Leilani Hilliard MD, Phone: [phone] Hemoglobinon 06-08-2024 Hemoglobin (Bld) [Mass/Vol] 13.4 g/dL Normal 11.8-15.4 [facility] Comment on above: Result Comment: PERF ORMED BY: [place] [address] PATHOLOGIST [employer] STORAGE CLERK SERA BAIRD M.D. Performed By: #### N ICOTINE #### [facility] , #### ALB, HGB, [id number], CUMRSA, A1C WT eA #### [address] Hemoglobin A1c/Hemoglobin.to dilma in BloodOrdered By: Demarcus Barahona on 06-08-2024 HbA1c (Bld) [Mass fraction] Hemoglobin A1c percentage 4.3-5.6 [facility] Comment on above: Increased risk for d iabetes: 5.7 - 6.4diabetes: >6.4glycemic control for adults with diabetes: <7.0 Hemoglobin [Mass/volume] in BloodOrdered By: Demarcus Barahona on 06-08-2024 Hemoglobin (Bld) [Mass/Vol] Hemoglobin [Mass/volume] in Blood 11.8-15.4 [facility] MRSA Cultureon 06-08-2024 MRSA Culture MRSA Culture Results No MRSA Isolated 2 Days PERFORMED BY: [place] [address] PATHOLOGIST [employer] STORAGE CLERK SERA BAIRD M.D. Normal [facility] Comment on above: Performed By: #### N ICOTINE #### [facility] , #### ALB, HGB, [id number], CUMRSA, A1C WTH eA #### [address] Nicotine [Mass/volume] in Se rum or PlasmaOrdered By: Demarcus Barahona on 06-08-2024 Nicotine [Mass/Vol] Nicotine [Mass/volum e] in Serum or Plasma . [facility] Comment on above: This test was develo ped and its performance characteristicsdetermined by [employer]. It has not been cleared orapproved by the Food and Drug Administration.Nicotine levels greater than 2.0 are consistent with theuse of tobacco or tobacco cessation products. Nicotine/Cotinine Bloodon Cotinine, Blood <1.0 Normal . [facility] Comment on above: Result Comment: This test was developed and its performance characteristics determined by [employer]. It has not been cleared or approved by the Food and Drug Administration. Cotinine levels greater than 20.0 are consistent with the use of tobacco or tobacco cessation products. Performed at: [address] [id number] Lifestyle Director: Leilani Hilliard MD, Phone: [phone] PERFORMED BY: [place] [address] PATHOLOGIST [employer] STORAGE CLERK SERA BAIRD M.D. Performed By: #### N ICOTINE #### [facility] , #### ALB, HGB, [id number], CUMRSA, A1C WTH eA #### [facility] [address] Nicotine, Blood <1.0 Normal . [facility] Comment on above: Result Comment: This test was developed and its performance characteristics determined by [facility]. It has not been cleared or approved by the Food and Drug Administration. Nicotine levels greater than 2.0 are consistent with the use of tobacco or tobacco cessation products. Performed By: #### N ICOTINE #### [facility] , #### ALB, HGB, [id number], CUMRSA, A1C WTH eA #### [address] Vitamin D 25 Hydroxy Totalon 06-08-2024 Vitamin D 25 Hydroxy Total 59.2 ng/mL Normal 30-100 [facility] Comment on above: Result Comment: NALLELY MIN D STATUS 25(OH)VITAMIN D RANGE (ng/mL) Deficient <20 Insufficient 20 to <30 Sufficient 30 to 100 Reference: Ramsey MF,Baldemar NC, Domenic BENITEZ, et al. Evaluation,treatment, and prevention of vitamin D deficiency; an Endocrine Society clinical practice guideline. JCEM. 2010; 96(7):1911-30. PERFORMED BY: [place] [address] PATHOLOGIST [employer] STORAGE CLERK SERA BAIRD M.D. Performed By: #### N ICOTINE #### [facility] , #### ALB, HGB, [id number], CUMRSA, A1C WTH eA #### [address] Vitamin D+Metabolites [Mass/ volume] in Serum or PlasmaOrdered By: Demarcus Barahona on 06-08-2024 Vitamin D+Metabolites [Mass/Vol] Vitamin D+Metabolites [Mass/volume] in Serum or Plasma 30-100 [facility] Comment on above: VITAMIN D STATUS 25( OH)VITAMIN D RANGE (ng/mL) Deficient <20 Insufficient 20 to <30Sufficient 30 to 100Reference: Ramsey MF,Baldemar NC, Andrew-Perry BENITEZ, et al. Evaluation,treatment, and prevention of vitamin D deficiency; an Endocrine Society clinical practice guideline. JCEM. 2010; 96(7):1911-30. Wound methicillin resistant Staphylococcus aureus (MRSA) cultureOrdered By: Demarcus Barahona on 06-08-2024 MRSA isol Org specific cx Ql (Unsp spec) Wound methicillin resistant Staphylococcus aureus (MRSA) culture [facility] X-ray reportOrdered By: Buddy Bray on 06-08-2024 Study report [facility] [address] [place] [address] XRay Report Signed Patient: Jeannette Porter MR#: [id number] : 1945 Acct:[id number] Age/Sex: 79 / F ADM Date: 5 Loc: [facility] Room: Type: [facility] Attending Dr: Demarcus Barahona II, MD Copies to: Demarcus Barahona MD~ Ordering Provider: Demarcus Barahona MD Date of Service: 06/08/24 XR/XR pelvis 1-2V: M25.561 - Pain in right knee ([id number]) XR/XR knee BI 4V: M25.561 - Pain [...] of the hips. Moderatespurring left sacral joints. Tpcoxxxl-xc-mxjxuv there are changes lower lumbar spine. Right knee: Severe lateral compartment degenerative changes. Bpco-nr-podmlhos medial compartment degenerative changes. Moderate patellofemoral compartment degenerative changes. Left knee: Severe lateral compartment degenerative changes. Xbhj-ve-owejzyai medial compartment degenerative changes. Moderate patellofemoral compartment degenerative changes. XR/XR pelvis 1-2V IMPRESSION: NO ACUTE BONY FINDINGS. TRICOMPARTMENTAL DEGENERATIVE CHANGES OF THE BILATERAL KNEES AND DEGENERATIVE CHANGES OF THE HIPS AND PELVIS. Impression dictated by: Hang Bray M.D.06/08/2024 10:31 AM Dictation Location: [place] [address] Transcribed By: [facility] 06/08/24 1031 Dictated By: Hang Bray MD 06/08/24 1027 Signed By: 06/08/[address] [facility] Work Phone: XR knee BI 4Von 06-08-2024 XR knee BI 4V [facility] [address] [place] [address] XRay Report Signed Patient: Jeannette Porter MR#: [id number] : 1945 Acct:[id number] Age/Sex: 79 / F ADM Date: 06/08/24 Loc: [facility] Room: Type: [facility] Attending Dr: Demarcus Barahona II, MD Copies to: Demarcus Barahona MD Ordering Provider: Demarcus Barahona MD Date of Service: 06/08/24 XR/XR pelvis 1-2V: M25.561 - Pain in right knee ([id number]) XR/XR knee BI 4V: M25.561 - Pain [...] the hips. Moderate spurring left sacral joints. Tsxvrtnx-qw-ekdnkv there are changes lower lumbar spine. Right knee: Severe lateral compartment degenerative changes. Rhyb-ds-lhixqyfx medial compartment degenerative changes. Moderate patellofemoral compartment degenerative changes. Left knee: Severe lateral compartment degenerative changes. Ldsf-oj-enfhkzxf medial compartment degenerative changes. Moderate patellofemoral compartment degenerative changes. XR/XR pelvis 1-2V IMPRESSION: NO ACUTE BONY FINDINGS. TRICOMPARTMENTAL DEGENERATIVE CHANGES OF THE BILATERAL KNEES AND DEGENERATIVE CHANGES OF THE HIPS AND PELVIS. Impression dictated by: Hang Bray M.D.06/08/2024 10:31 AM Dictation Location: [place] [address] Transcribed By: [facility] 06/08/24 1031 Dictated By: Hang Bray MD 06/08/24 1027 Signed By: 06/08/24 1031 Normal [facility] Ophthalmic OCT panelon 06-06 [facility] Left Eye Images reviewed and comparison made to baseline, Images reviewed. To assess optic nerve function and for use in future follow-up. Reliability: good and adequate. 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 Worsening. Counts include 234 beds at the [facility] Radiology Study observation (narrative) [facility] CHEMISTRYOrdered By: SYSTEM SYSTEM on 07-15-2023 Anion [...] 35.5 s Normal 25.1 - 36.5 second(s) [facility] Auto Coag Comment on above: Interpretive Data: [...] the same coagulation reagent and instrumentation as [facility]. Currently there are no coagulation studies available worldwide for children to 14 days, and no normal ranges. Heparin therapeutic range (represented by Anti-Factor Xa activity of 0.2 - 0.4 U/mL) corresponds to PTT of 56.6 - 109.0 sec. INR Coag (PPP) [Relative time] 1.07 {INR} Invalid Interpretation Code [facility] Comment on above: Interpretive Data: I NR results are specifically intended to assess patients stabilized on long-term Anticoagulation therapy suggested INR s Less Intensive Anticoagulation 2.0 3.0 Conventional Range 3.0 4.5 PT Coag (PPP) [Time] 11.9 s Normal 9.4 - 1 2.5 second(s) [facility] Comment on above: Interpretive Data: [...] the same coagulation reagent and instrumentation as [facility]. Currently there are no coagulation studies available [...] Normal 80.0 - 100.0 fL Remisol Heme [place] Absolute 0.5 E9/L Normal 0.2 - 1.0 [...] PM) Normal Negative [facility] UA Auto SS [place].plasma/[place] .RBC (Bld) [Mass ratio] >75 /HPF Invalid [...] [facility] UA Auto SS Urobilinogen Qn (U) 0.0438975 {Starr'U}/dL Normal 0.0 - 1.0 EU/dL [facility] UA Auto SS WBC Auto Ql (U) 2+ *ABN* (07/15/23 4:18 PM) Invalid Interpretation Code Negative [facility] UA Auto SS WBC LM.HPF (Urine sed) [#/Area] /[HPF] Invalid Interpretation Code 0-5/HPF [facility] UA Auto SS MG MAMM SCREEN 3D MARCOS CADon 08-24-2022 MG MAMM SCREEN 3D MARCOS CAD Patient: JEANNETTE PORTER Exam Date: 08/24/2022 : 1945 Gender:F Ordering : DR ADARSH MANRIQUE M.D. Admission #: [id number] Family : Order #: [id number] CLICK HERE TO VIEW EXAM RADIOLOGY REPORT [...] at age 71. LOCATION: [facility] BREAST COMPOSITION: Heterogeneously dense,which may obscure [...] M.D. on 08/24/2022 at 12:10 Normal [facility] Vital Signs Date Time Vital Sign Value Performing Clinician Facility 02-22-2025 08:51-0400 Body height 154.9 cm Adarsh Manrique MD Work Phone: [facility] 02-22-2025 08:51-0400 Body mass index (BMI) [Ratio] 31.55 kg/m2 Adarsh Manrique MD Work Phone: [facility] 02-22-2025 08:51-0400 Body weight 75.75 kg Adarsh Manrique MD Work Phone: [facility] 02-22-2025 08:51-0400 Diastolic blood pressure 80 mm[Hg] Adarsh Manrique MD Work Phone: [facility] 02-22-2025 08:51-0400 Heart rate 68 /min Adarsh Manrique MD Work Phone: [facility] 02-22-2025 08:51-0400 SaO2% (BldA) [Mass fraction] 95 % Adarsh Manrique MD Work Phone: [facility] 02-22-2025 08:51-0400 Systolic blood pressure 130 mm[Hg] Adarsh Manrique MD Work Phone: [facility] 11-23-2024 09:45-0400 Body height 154.9 cm Adarsh Manrique MD Work Phone: [facility] 11-23-2024 09:45-0400 Body mass index (BMI) [Ratio] 30.61 kg/m2 Adarsh Manrique MD Work Phone: [facility] 11-23-2024 09:45-0400 Body weight 73.48 kg Adarsh Manrique MD Work Phone: [facility] 11-23-2024 09:45-0400 Diastolic blood pressure 76 mm[Hg] Adarsh Manrique MD Work Phone: [facility] Comment on above: 136 80 11-23-2024 09:45-0400 Heart rate 68 /min Adarsh Manrique MD Work Phone: [facility] 11-23-2024 09:45-0400 SaO2% (BldA) [Mass fraction] 96 % Adarsh Manrique MD Work Phone: [facility] 11-23-2024 09:45-0400 Systolic blood pressure 138 mm[Hg] Adarsh Manrique MD Work Phone: [facility] Comment on above: 136 80 08-31-2024 13:08-0400 Body temperature 97.6 [degF] Adarsh Manrique II Work Phone: [facility] 08-31-2024 13:08-0400 Diastolic blood pressure 72 mm[Hg] Adarsh Manrique II Work Phone: [facility] 08-31-2024 13:08-0400 Heart rate 61 /min Adarsh Manrique II Work Phone: [facility] 08-31-2024 13:08-0400 Respiratory rate 19 /min Adarsh Manrique II Work Phone: [facility] 08-31-2024 13:08-0400 SaO2% (BldA) [Mass fraction] 96 % Adarsh Manrique II Work Phone: [facility] 08-31-2024 13:08-0400 Systolic blood pressure 119 mm[Hg] Adarsh Manrique II Work Phone: [facility] 08-31-2024 06:00-0400 Body weight 83.9 kg Adarsh Manrique II Work Phone: [facility] 08-29-2024 12:30-0400 Inhaled oxygen flow rate 8 L/min Adarsh Manrique II Work Phone: [facility] 08-29-2024 08:32-0400 Body height 152.4 cm Adarsh Manrique II Work Phone: [facility] 07-27-2024 10:08-0500 Body height 154.9 cm Nolvia Hemmer PA Work Phone: [facility] 07-27-2024 10:08-0500 Body mass index (BMI) [Ratio] 30.87 kg/m2 Nolvia Hemmer PA Work Phone: [facility] 07-27-2024 10:08-0500 Body weight 74.12 kg Nolvia Hemmer PA Work Phone: [facility] 07-27-2024 10:08-0500 Diastolic blood pressure 84 mm[Hg] Nolvia Hemmer PA Work Phone: [facility] 07-27-2024 10:08-0500 Heart rate 58 /min Nolvia Hemmer PA Work Phone: [facility] 07-27-2024 10:08-0500 Respiratory rate 16 /min Nolvia Hemmer PA Work Phone: [facility] 07-27-2024 10:08-0500 SaO2% (BldA) [Mass fraction] 97 % Nolvia Hemmer PA Work Phone: [facility] 07-27-2024 10:08-0500 Systolic blood pressure 136 mm[Hg] Nolvia Hemmer PA Work Phone: [facility] 06-20-2024 13:00-0500 Body height 154.9 cm Nolvia Hemmer PA Work Phone: [facility] 06-20-2024 13:00-0500 Body mass index (BMI) [Ratio] 30.76 kg/m2 Nolvia Hemmer PA Work Phone: [facility] 06-20-2024 13:00-0500 Body weight 73.85 kg Nolvia Hemmer PA Work Phone: [facility] 06-20-2024 13:00-0500 Diastolic blood pressure 76 mm[Hg] Nolvia Hemmer PA Work Phone: [facility] 06-20-2024 13:00-0500 Heart rate 63 /min Nolvia Hemmer PA Work Phone: [facility] 06-20-2024 13:00-0500 Respiratory rate 16 /min Nolvia Hemmer PA Work Phone: [facility] 06-20-2024 13:00-0500 SaO2% (BldA) [Mass fraction] 96 % Nolvia Hemmer PA Work Phone: [facility] 06-20-2024 13:00-0500 Systolic blood pressure 132 mm[Hg] Nolvia Hemmer PA Work Phone: [facility] 06-08-2024 09:35-0500 Body height 152.4 cm Adarsh Manrique II Work Phone: [facility] 06-08-2024 09:35-0500 Body mass index (BMI) [Ratio] 31.2 kg/m2 Adarsh Manrique II Work Phone: [facility] 06-08-2024 09:35-0500 Body weight 72.57 kg Adarsh Manrique II Work Phone: [facility] 03-13-2024 10:43-0400 Body height 154.9 cm Adarsh Manrique MD Work Phone: [facility] 03-13-2024 10:43-0400 Body mass index (BMI) [Ratio] 30.23 kg/m2 Adarsh Manrique MD Work Phone: [facility] 03-13-2024 10:43-0400 Body weight 72.58 kg Adarsh Manrique MD Work Phone: [facility] 03-13-2024 10:43-0400 Diastolic blood pressure 80 mm[Hg] Adarsh Manrique MD Work Phone: [facility] 03-13-2024 10:43-0400 Heart rate 76 /min Adarsh Manrique MD Work Phone: [facility] 03-13-2024 10:43-0400 SaO2% (BldA) [Mass fraction] 97 % Adarsh Manrique MD Work Phone: [facility] 03-13-2024 10:43-0400 Systolic blood pressure 132 mm[Hg] Adarsh Manrique MD Work Phone: [facility] 03-06-2024 10:28-0400 Body mass index (BMI) [Ratio] 30.31 kg/m2 Adarsh Manrique MD Work Phone: [facility] 03-06-2024 10:28-0400 Body weight 72.76 kg Adarsh Manrique MD Work Phone: [facility] 03-06-2024 10:28-0400 Diastolic blood pressure 90 mm[Hg] Adarsh Manrique MD Work Phone: [facility] 03-06-2024 10:28-0400 Heart rate 71 /min Adarsh Manrique MD Work Phone: [facility] 03-06-2024 10:28-0400 Respiratory rate 16 /min Adarsh Manrique MD Work Phone: [facility] 03-06-2024 10:28-0400 SaO2% (BldA) [Mass fraction] 97 % Adarsh Manrique MD Work Phone: [facility] 03-06-2024 10:28-0400 Systolic blood pressure 140 mm[Hg] Adarsh Manrique MD Work Phone: [facility] 02-14-2024 10:51-0400 Body height 154.9 cm Adarsh Manrique MD Work Phone: [facility] 02-14-2024 10:51-0400 Body mass index (BMI) [Ratio] 30.23 kg/m2 Adarsh Manrique MD Work Phone: [facility] 02-14-2024 10:51-0400 Body weight 72.58 kg Adarsh Manrique MD Work Phone: [facility] 02-14-2024 10:51-0400 Diastolic blood pressure 80 mm[Hg] Adarsh Manrique MD Work Phone: [facility] Comment on above: standing 134 84 02-14-2024 10:51-0400 Heart rate 79 /min Adarsh Manrique MD Work Phone: [facility] 02-14-2024 10:51-0400 SaO2% (BldA) [Mass fraction] 98 % Adarsh Manrique MD Work Phone: [facility] 02-14-2024 10:51-0400 Systolic blood pressure 138 mm[Hg] Adarsh Manrique MD Work Phone: [facility] Comment on above: standing 134 84 01-19-2024 10:17-0400 Diastolic blood pressure 48 mm[Hg] Keerthi Lue [facility] 01-19-2024 10:17-0400 Heart rate 73 /min Keerthi Lue [facility] 01-19-2024 10:17-0400 Respiratory rate 16 /min Keerthi Lue [facility] 01-19-2024 10:17-0400 Systolic blood pressure 128 mm[Hg] Keerthi Lue [facility] 07-20-2023 14:37-0500 Diastolic blood pressure 62 mm[Hg] Keerthi Lue [facility] 07-20-2023 14:37-0500 Systolic blood pressure 136 mm[Hg] Keerthi Lue [facility] 07-20-2023 14:36-0500 Heart rate 83 /min Keerthi Lue [facility] 07-20-2023 14:36-0500 SaO2% (BldA) [Mass fraction] 96 % Keerthi Lue [facility] 07-20-2023 14:36-0500 Diastolic blood pressure 80 mm[Hg] Keerthi Lue [facility] 07-20-2023 14:36-0500 Mean blood pressure 104 mm[Hg] Keerthi Lue [facility] 07-20-2023 14:36-0500 Systolic blood pressure 152 mm[Hg] Keerthi Lue [facility] 07-20-2023 14:35-0500 Respiratory rate 16 /min Keerthi Lue [facility] 07-20-2023 13:33-0500 Heart rate 77 /min Keerthi Lue [facility] 07-20-2023 13:33-0500 SaO2% (BldA) [Mass fraction] 93 % Keerthi Lue [facility] 07-20-2023 13:32-0500 Respiratory rate 16 /min Keerthi Lue [facility] 07-20-2023 13:31-0500 Diastolic blood pressure 66 mm[Hg] Keerthi Lue [facility] 07-20-2023 13:31-0500 Mean blood pressure 84 mm[Hg] Keerthi Lue [facility] 07-20-2023 13:31-0500 Systolic blood pressure 121 mm[Hg] Keerthi Lue [facility] 07-20-2023 13:27-0500 Body temperature 97.34 [degF] Keerthi Lue [facility] 07-20-2023 13:27-0500 Heart rate 72 /min Keerthi Lue [facility] 07-20-2023 13:27-0500 Mean blood pressure 80 mm[Hg] Keerthi Lue [facility] 07-20-2023 13:27-0500 Respiratory rate 16 /min Keerthi Lue [facility] 07-20-2023 13:27-0500 SaO2% (BldA) [Mass fraction] 94 % Keerthi Lue [facility] 07-20-2023 13:15-0500 Mean blood pressure 82 mm[Hg] Keerthi Lue [facility] 07-20-2023 13:15-0500 Respiratory rate 16 /min Keerthi Lue [facility] 07-20-2023 13:10-0500 Mean blood pressure 79 mm[Hg] Keerthi Lue [facility] 07-20-2023 13:10-0500 Respiratory rate 14 /min Keerthi Lue [facility] 07-20-2023 13:02-0500 Body temperature 97.16 [degF] Keerthi Lue [facility] 07-20-2023 12:55-0500 Respiratory rate 14 /min Keerthi Lue [facility] 07-20-2023 09:51-0500 Mean blood pressure 91 mm[Hg] Keerthi Lue [facility] 07-20-2023 09:49-0500 Body temperature 97.52 [degF] Keerthi Lue [facility] 07-15-2023 15:31-0500 Heart rate 65 /min Keerthi Lue [facility] 07-15-2023 15:31-0500 SaO2% (BldA) [Mass fraction] 96 % Keerthi Lue [facility] 07-15-2023 15:30-0500 Diastolic blood pressure 83 mm[Hg] Keerthi Lue [facility] 07-15-2023 15:30-0500 Mean blood pressure 100 mm[Hg] Keerthi Lue [facility] 07-15-2023 15:30-0500 Systolic blood pressure 136 mm[Hg] Keerthi Lue [facility] 06-23-2023 10:26-0500 Blood Pressure Location Keerthi Lue [facility] 06-23-2023 10:26-0500 Diastolic blood pressure 67 mm[Hg] Keerthi Lue [facility] 06-23-2023 10:26-0500 Heart rate 67 /min Keerthi Lue [facility] 06-23-2023 10:26-0500 Respiratory rate 16 /min Keerthi Lue [facility] 06-23-2023 10:02-0500 Systolic blood pressure 118 mm[Hg] Keerthi Trujillo [facility] Encounters Encounter Date Encounter Type Care Provider Facility Start: 02-27-2026 ambulatory Keerthi Trujillo Facility:[facility] Start: 03-09-2025 End: 03-09-2025 ambulatory [facility] Start: 02-22-2025 End: 02-22-2025 Bambo flowsheet Adarsh Manrique MD Work Phone: [facility] [place] [facility] Start: 02-22-2025 End: 02-22-2025 [facility] flowsheet Adarsh Manrique MD Work Phone: [facility] [place] [facility] Start: 02-22-2025 End: 02-22-2025 Office outpatient visit 15 minutes Adarsh Manrique MD Work Phone: [facility] [place] [facility] Comment on above: Primary hypertension (Primary Dx); Flu vaccine need; CVD (cardiovascular disease) ; Pure hypercholesterolemia, unspecified ; Primary osteoarthritis of left knee Start: 02-22-2025 End: 02-22-2025 ambulatory ADARSH MANRIQUE Not Available Start: 02-21-2025 End: 02-21-2025 ambulatory Keerthi Trujillo Facility:[facility] Start: 02-21-2025 End: 02-21-2025 Patient encounter procedure Keerthi Trujillo [facility] Start: 01-23-2025 End: 01-23-2025 Clinisync Result Encounter Generic External Data Provider [facility] External Department Unsolicited Start: 01-23-2025 End: 01-23-2025 Clinisync Result Encounter Generic External Data Provider [facility] External Department Unsolicited Start: 11-29-2024 End: 11-29-2024 ambulatory Adarsh Manrique II Work Phone: [facility] Work Phone: Start: 11-29-2024 End: 11-29-2024 Patient encounter procedure Demarcus Rojas MD -[facility] Work Phone: Start: 11-29-2024 End: 11-29-2024 Patient encounter procedure Demarcus Rojas MD -[facility] Start: 11-29-2024 End: 11-29-2024 ambulatory Adarsh Manrique II Work Phone: [facility] Work Phone: Start: 11-28-2024 End: 11-28-2024 Bamboo [...] encounter procedure Adarsh Manrique II Work Phone: [facility] Work Phone: Start: 10-18-2024 End: 10-18-2024 Patient encounter procedure Adarsh Manrique II Work Phone: [facility] Start: 10-18-2024 End: 10-18-2024 ambulatory Adarsh Manrique II Work Phone: [facility] Work Phone: Start: 10-02-2024 End: 10-02-2024 Bamboo flowsheet Elham Morfin DO Work Phone: [facility] Start: 10-02-2024 End: 10-02-2024 Bamboo flowsheet Elham Ramírezer DO Work Phone: [facility] Start: 10-02-2024 End: 10-02-2024 Refill Elham Morfin DO Work Phone: [facility] Comment on above: 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, mild stage (Primary Dx) Start: 09-14-2024 End: 09-14-2024 Patient encounter procedure Adarsh Manrique II Work Phone: [facility] Work Phone: Start: 08-29-2024 Non-patient / Non-visit Adarsh Manrique II Work Phone: [facility] Work Phone: Start: 08-29-2024 End: 08-31-2024 Admission to same day surgery center Adarsh Manrique II Work Phone: [facility] [place] Start: 08-29-2024 End: 08-31-2024 ambulatory Adarsh Manrique II Work Phone: [facility] Work Phone: Start: 08-18-2024 End: 08-18-2024 ambulatory Adarsh Manrique II Work Phone: [facility] Work Phone: Start: 08-18-2024 End: 08-18-2024 Patient encounter procedure Adarsh Manrique II Work Phone: [facility] Work Phone: Start: 08-17-2024 End: 08-17-2024 Discharged Recurring Adarsh Manrique II Work Phone: [facility] [place] Start: 08-17-2024 Registered Recurring Adarsh lovelacey II Work Phone: [facility] [place] Start: 08-17-2024 Encounter for other preprocedural examination Demarcus Barahona II [facility] Start: 08-17-2024 End: 08-17-2024 ambulatory Adarsh Manrique II Work Phone: [facility] Work Phone: Start: 08-17-2024 End: 08-17-2024 Patient encounter procedure Adarsh Manrique II Work Phone: [facility] Work Phone: Start: 08-17-2024 End: 08-17-2024 Patient encounter procedure Adarsh Manrique II Work Phone: [facility] [place] [facility] Start: 08-17-2024 End: 08-17-2024 ambulatory Adarsh Manrique II Work Phone: [facility] Work Phone: Start: 08-11-2024 End: 08-11-2024 Patient encounter procedure Adarsh Manrique II Work Phone: [facility] Work Phone: Start: 08-11-2024 End: 08-11-2024 ambulatory Adarsh Manrique II Work Phone: [facility] Work Phone: Start: 08-11-2024 Encounter for preprocedural laboratory examination Demarcus Barahona II [facility] Start: 07-27-2024 End: 07-27-2024 Willy Rojas Hemmer PA Work Phone: [facility] Start: 07-27-2024 End: 07-27-2024 Bamboo flowsheet Nolvia VILLALOBOS Work Phone: [facility] Start: 07-27-2024 End: 07-27-2024 Patient encounter procedure Nolvia VILLALOBOS Work Phone: [facility] Comment on above: Medicare annual advanced surgical hospitals visit, subsequent (Primary Dx); ACP (advance [...] Not Available Start: 07-03-2024 End: 07-03-2024 [facility] Start: 06-20-2024 End: 06-20-2024 Bamboo flowsheet Nolvia VILLALOBOS Work Phone: [facility] Start: 06-20-2024 End: 06-20-2024 Bamboo flowsheet Nolvia VILLALOBOS Work Phone: [facility] [...] 06-08-2024 ambulatory Adarsh Manrique II Work Phone: [facility] Work Phone: Start: 06-08-2024 End: 06-08-2024 Patient encounter procedure Adarsh Manrique II Work Phone: [facility] Work Phone: Start: 06-06-2024 End: 06-06-2024 [...] 03-06-2024 ambulatory ADARSH MANRIQUE Not Available Start: 02-14-2024 End: 02-14-2024 Bamboo flowsheet Adarsh Manrique MD Work Phone: [facility] Start: 02-14-2024 End: 02-14-2024 Bamboo flowsheet Adarsh Manrique MD Work Phone: [facility] Start: 02-14-2024 End: 02-14-2024 Office outpatient visit 25 minutes Adarsh Manrique MD Work Phone: [facility] Comment on above: Migraine without aur a and without status migrainosus, not intractable (CMS/HCC) (Primary Dx); Primary hypertension (CMS/HCC); Personal history of kidney stones Start: 01-19-2024 End: 01-19-2024 Patient encounter procedure Keerthi Trujillo [facility] Start: 07-20-2023 End: 07-20-2023 Admission to same day surgery center Keerthi Trujillo [facility] Start: 07-15-2023 End: 07-15-2023 Patient encounter procedure Keerthi Trujillo [facility] Start: 06-23-2023 End: 06-23-2023 Patient encounter procedure Keerthi RojasYina Ronnie [facility] Start: 08-24-2022 End: 08-25-[address] ADARSH MANRIQUE Facility:[facility] Procedures Date Procedure Procedure Detail Performing Clinician Start: 01-23-2025 US RENAL BI Generic Ex ternal Data Provider Start: 01-23-2025 XR ABDOMEN 1V Generic E xternal Data Provider Start: 11-29-2024 Plain X-ray of left femur [...] DO Work Phone: Start: 10-02-2024 End: 10-02-2024 [facility] medical xm&eval intermediate estab pt Primary open angle [...] Computerized ophthal rodrigo imaging optic nerve Elham Mrofin DO Work Phone: Start: 06-06-2024 End: 06-06-2024 [facility] xm&eval compre new pt 1/> vst Primary [...] electrohydraulic lithotripsy of calculus of bladder Keerthi Trujillo Start: 06-15-2023 Cystoscopic insertio n of ureteric stent Keerthi Trujillo Start: 01-31-2021 Extracorporeal shock wave lithotripsy of calculus of kidney Keerthi Lue Arthroplasty of knee Keerthi L ue Biopsy of breast Keerthi Lue Colonoscopy Keerthi Lue Cystoscopy Keerthi Lue History of tonsillectomy Desirae hy Lue Lung cyst removal Keerthi Lue Plan of Treatment Date Care Activity Detail Author Start: 07-27-2025 Medicare Annual Well ness (AWV) Medicare Annual Wellness (AWV) [facility] Start: 07-25-2025 End: 07-25-2025 Patient encounter procedure 07/25/2025 9:30 AM EST [facility] [address] [facility] [address] [place] [phone] Adarsh Manrique MD [address] [facility] [address] [place] [address] [facility] Start: 03-19-2025 End: 03-19-2025 Patient encounter procedure 03/19/2025 2:00 PM EDT Office Visit [facility] [address] [place] [address] [place] [phone] Elham Morfin DO [address] [place] [address] [facility] Start: 02-22-2025 End: 02-22-2025 Patient encounter procedure 02/22/2025 9:00 AM EDT Office Visit [facility] [address] [place] [address] [place] [phone] Adarsh Manrique MD [address] [place] [address] [place] [address] Arrived MARY [facility] Comment on above: Arrived Start: 02-05-2025 End: 02-05-2025 Patient encounter procedure [facility] Start: 01-31-2025 End: 01-31-2025 Patient encounter procedure [facility] Start: 01-29-2025 Influenza vaccination Influenza Vacc ine (#1) [facility] Start: 11-29-2024 Plain X-ray of left femur XR femur L T 2V* [facility] Start: 11-29-2024 Plain X-ray of left tibia and left fibula XR tibia fibula LT 2V* [facility] Start: 11-29-2024 X-ray of left knee, two views XR knee LT 2V [facility] Start: 11-29-2024 XR Femur - left [address] [facility] Start: 11-29-2024 XR Knee - left [address] [facility] Start: 11-29-2024 XR Tibia and Fibula - left [address] [facility] Start: 11-28-2024 End: 11-28-2024 ambulatory 11/28/2024 10:30 AM EDT Treatment [facility] [address] [facility] [address] [place] [address] Adeline Noguera, PT [facility] Start: 11-23-2024 End: 11-23-2024 Patient encounter procedure 11/23/2024 9:45 AM EDT Office Visit [facility] [address] [facility] [address] [place] [address] Adarsh Manrique MD [address] [facility] [address] [place] [address] Arrived [facility] Comment on above: Arrived Start: 10-02-2024 End: 10-02-2024 Patient encounter procedure [facility] Comment on above: Arrived Start: 08-31-2024 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 Start: 08-17-2024 Plain X-ray of left femur XR femur L T 2V* [facility] Start: 08-17-2024 Plain X-ray of left tibia and left fibula XR tibia fibula LT 2V* [facility] Start: 08-17-2024 XR Femur - left [address] [facility] Start: 08-17-2024 XR Tibia and Fibula - left [address] [facility] Start: 08-11-2024 Bacteria identified in Urine by Culture Urine Culture [facility] Start: 08-11-[address] [facility] Start: 08-11-2024 [facility] Start: 07-27-2024 End: 07-27-2025 DXA Skeletal system Views for bone density DEXA bone density Imaging Routine Estrogen deficiency Expected: 07/27/2024, Expires: 07/27/2025 [facility] Work Phone: Comment on above: Expected: 07/27/2024 , Expires: 07/27/2025 Start: 07-27-2024 End: 07-27-2024 Patient encounter procedure 07/27/2024 10:00 AM EST Office Visit [facility] [address] [facility] [address] [place] [address] Nolvia Gomez PA [address] [facility] [address] [place] [address] Arrived [facility] Comment on above: Arrived Start: 06-20-2024 End: 06-20-2025 Basic metabolic 1998 panel - Serum or Plasma Basic metabolic panel Lab Routine Pre-operative examination Primary hypertension (CMS/HCC) Expected: 06/20/2024 (Approximate), Expires: 06/20/2025 [facility] Comment on above: Expected: 06/20/2024 (Approximate), Expires: 06/20/2025 Start: 06-20-2024 End: 06-20-2025 CBC panel - Blood by Automated count CBC Lab Routine Pre-operative examination Primary hypertension (CMS/HCC) Expected: 06/20/2024 (Approximate), Expires: 06/20/2025 [facility] Work Phone: Comment on above: Expected: 06/20/2024 (Approximate), Expires: 06/20/2025 Start: 06-20-2024 End: 06-20-2024 Patient encounter procedure 06/20/2024 1:00 PM EST Office Visit [facility] [address] [facility] [address] [place] [address] Nolvia Gomez PA [address] [facility] [address] [place] [address] Arrived [facility] Comment on above: Arrived Start: 06-08-2024 MRSA Culture MRSA Culture [facility] Start: 06-08-2024 Methicillin resistan t Staphylococcus aureus [Presence] in Unspecified specimen by Organism specific culture [facility] Start: 06-08-2024 [facility] Start: 06-08-2024 Plain radiography of pelvis XR pelvis 1-2V [facility] Start: 06-08-2024 X-ray of both knees, four views XR knee BI 4V [facility] Start: 06-08-2024 XR Knee - bilateral [address] [facility] Start: 06-08-2024 XR Pelvis [address] [facility] Start: 06-06-2024 End: 06-06-2024 Patient encounter procedure 06/06/2024 1:45 PM EST Office Visit [facility] [address] [place] [phone] Elham Morfin DO [address] [place] [address] Arrived [facility] Comment on above: Arrived Start: 04-24-2024 End: 04-24-2024 Patient encounter procedure 04/24/2024 3:00 PM EST Office Visit [facility] [address] [facility] [address] [place] [address] Adarsh Manrique MD [address] [facility] [address] [place] [address] [facility] Start: 03-13-2024 End: 03-13-2024 Patient encounter procedure [facility] Comment on above: Arrived Start: 03-06-2024 End: 03-06-2024 Patient encounter procedure [facility] Comment on above: Arrived Start: 02-14-2024 End: 02-14-2024 Patient encounter procedure 02/14/2024 11:00 AM EDT Office Visit [facility] [address] [facility] [address] [place] [phone] Adarsh Manrique MD [address] [facility] [address] [place] [address] Arrived [facility] Comment on above: Arrived Start: 01-30-2024 Influenza vaccination Influenza Vacc ine (#1) [facility] Start: 03-19-2023 Medicare Annual Well ness (AWV) Medicare Annual Wellness (AWV) [facility] Cotinine [Mass/volum e] in Serum or Plasma [facility] Hemoglobin [Mass/vol ume] in Blood [facility] Lipid 1996 panel - S kee or Plasma Lipid panel Lab Routine Medicare annual wellness visit, subsequent Pure hypercholesterolemia, unspecified (CMS/HCC) Primary hypertension ([facility]/HCC) CVD (cardiovascular disease) ([facility]/HCC) Ordered: 07/27/2024 [facility] Comment on above: Ordered: 07/27/2024 Nicotine [Mass/volum e] in Serum or Plasma [facility] Patient Education Know your Meds [facility] Work Phone: Patient referral [facility] Work Phone: Immunizations Immunization Date Immunization Notes Care Provider Fa cili 02-22-2025 influenza, high dose seasonal, preservative-free Adarsh Manrique MD Work Phone: [facility] 03-15-2024 SARS-COV-2 (COVID-19 ) vaccine, mRNA, spike protein, LNP, PF, 50 mcg/0.5 mL Elham Morfin DO Work Phone: [facility] 03-10-2024 Influenza, High-dose Seasonal, Quadrivalent, Preservative Free Adarsh Manrique MD Work Phone: [facility] 03-10-2024 influenza virus vacc ine, unspecified formulation Adeline Noguera PT [facility] 06-07-2023 SARS-COV-2 (COVID-19 ) vaccine, mRNA, spike protein, LNP, PF, 50 mcg/0.5 mL Adarsh Manrique MD Work Phone: [facility] 04-07-2023 influenza virus vacc ine, unspecified formulation Keerthi Lue [facility] 04-07-2023 Influenza, High-dose Seasonal, Quadrivalent, Preservative Free Adarsh Manrique MD Work Phone: [facility] 03-19-2022 influenza virus vacc ine, unspecified formulation Keerthi Lue [facility] 03-19-2022 Influenza, High-dose Seasonal, Quadrivalent, Preservative Free Adarsh Manrique MD Work Phone: [facility] 12-24-2021 COVID-19 Comirnaty (Pfizer) Tri-Sucrose 12+ Adarsh Manrique II Work Phone: [facility] 12-24-2021 SARS-CoV-2 mRNA (ymiisfgurds-stev-gparmz e) vaccine Keerthi Lue [facility] Comment on above: Result Comment: 2023: [id number] 05-01-2021 influenza virus vacc ine, unspecified formulation Keerthi Lue [facility] 05-01-2021 Pfizer Purple Cap SARS-CoV-2 Vaccination Adarsh Manrique MD Work Phone: [facility] 08-15-2020 SARS-CoV-2 (COVID-19 ) mRNA BNT-162b2 vax Keerthi Lue [facility] 07-29-2020 SARS-CoV-2 (COVID-19 ) mRNA-1273 vaccine Keerthi Lue [facility] 07-25-2020 SARS-CoV-2 (COVID-19 ) mRNA BNT-162b2 vax Keerthi Lue [facility] 07-01-2020 SARS-CoV-2 (COVID-19 ) mRNA-1273 vaccine Keerthi Lue [facility] 03-04-2020 influenza virus vacc ine, unspecified formulation Keerthi Lue [facility] 03-04-2020 Influenza, High-dose Seasonal, Quadrivalent, Preservative Free Adarsh Manrique MD Work Phone: [facility] 04-18-2019 influenza virus vacc ine, unspecified formulation Keerthi Lue [facility] 04-18-2019 Seasonal trivalent influenza vaccine, adjuvanted, preservative free Adarsh Manrique MD Work Phone: [facility] 06-15-2018 zoster vaccine recombinant Keerthi Lue [facility] 01-11-2018 influenza virus vacc ine, unspecified formulation Keerthi Lue [facility] 01-11-2018 seasonal influenza, intradermal, preservative free Adarsh Manrique MD Work Phone: [facility] 01-11-2018 zoster vaccine recombinant Keerthi Lue [facility] 03-01-2017 pneumococcal polysaccharide vaccine, 23 valent Keerthi Lue [facility] 02-17-2017 influenza virus vacc ine, unspecified formulation Keerthi Lue [facility] 02-17-2017 Influenza, High-dose Seasonal, Quadrivalent, Preservative Free Adarsh Manrique MD Work Phone: [facility] 04-14-2016 influenza, injectabl e, quadrivalent, preservative free Adarsh Manrique MD Work Phone: [facility] 09-02-2015 pneumococcal conjuga te vaccine, 13 valent Keerthi Lue [facility] 04-02-2015 influenza, injectabl e, quadrivalent, preservative free Adarsh Manrique MD Work Phone: [facility] 12-31-2014 zoster vaccine, live Keerthi L ue [facility] 09-06-2014 pneumococcal conjuga te vaccine, 13 valent Keerthi Lue [facility] 03-18-2014 influenza, seasonal, injectable Adarsh Manrique MD Work Phone: [facility] 03-07-2014 pneumococcal polysaccharide vaccine, 23 valent Adarsh Manrique MD Work Phone: [facility] 04-24-2013 influenza virus vacc ine, unspecified formulation Keerthi Lue [facility] 04-24-2013 influenza, seasonal, injectable Adarsh Manrique MD Work Phone: [facility] 02-28-2013 seasonal influenza, intradermal, preservative free Adarsh Manrique MD Work Phone: [facility] Payers Date Payer Category Payer Self-pay [id number] 2022 Private Health Insurance [id number] 2011 Medicare [id number] 1959 Medicare [id number] 1959 Private Health Insurance [id number] 1946 Unknown [id number] 2.16.840.1.198112.3.579. 2.593 1946 Unknown [id number] 2.16.840.1.015955.3.579. 2.727 1946 Unknown [id number] 2.16.840.1.083192.3.579. 2.727 1946 Unknown [id number] 2.16.840.1.019663.3.579. 2.1259 1946 Unknown [id number] 2.16.840.1.346141.3.579. 2.1259 1946 Unknown [id number] 2.16.840.1.810258.3.579. 2.1259 1946 Unknown [id number] 2.16.840.1.227691.3.579. 2.1259 1946 Unknown [id number] 2.16.840.1.818067.3.579. 2.1259 1946 Unknown [id number] 2.16.840.1.352928.3.579. 2.1259 1946 Unknown [id number] 2.16.840.1.280824.3.579. 2.1259 1946 Unknown [id number] 2.16.840.1.200811.3.579. 2.1259 1946 Unknown [id number] 2.16.840.1.640926.3.579. 2.1259 1946 Unknown [id number] 2.16.840.1.887856.3.579. 2.1259 Unknown [id number] Conversion Insurance [id number] Unknown [id number] 2.16.840.1.067166.3.579. 2.531 Unknown [id number] 2.16.840.1.662572.3.579. 2.531 Unknown [id number] 2.16.840.1.750448.3.579. 2.531 Unknown [id number] 2.16.840.1.449700.3.579. 2.531 Unknown [id number] 2.16.840.1.863626.3.579. 2.531 Unknown [id number] 2.16.840.1.087501.3.579. 2.531 Unknown [id number] 2.16.840.1.867506.3.579. 2.531 Social History Date Type Detail Facility Tobacco smoking stat [facility] Unknown if ever smoked [facility] Work Phone: Start: 1945 Sex Assigned At Female F [facility] Start: 10-29-2022 End: 06-23-2023 Tobacco smoking status Never smoked tobacco (finding) [facility] Tobacco smoking status Never [facility] Start: 02-14-2024 End: 11-23-2024 Sex Assigned At Female [facility] Start: 10-29-2022 Tobacco use and exposure Smoke less tobacco non-user [facility] Start: 02-14-2024 End: 02-22-2025 Alcoholic beverage intake Lifetime non-drinker (finding) [facility] Start: 02-14-2024 End: 11-23-2024 History of Social function [facility] Start: 1945 Sex assigned at Not on file [facility] Start: 01-03-2019 End: 06-08-2024 Sex Female (finding) [facility] Start: 08-31-2024 SDOH Follow up SDOH Follow up [facility] Work Phone: Sexual Orientation [facility] Medical Equipment Procedure Code Equipment Code [...] knee, total, minimally invasive Orthopaedic cement, non-medicated ()[id number] FDA Start: 08-29-2024 Arthroplasty, knee, total, minimally invasive Uncoated knee femur prosthesis ()[id number] FDA Start: 08-29-2024 Arthroplasty, knee, total, minimally invasive Tibial insert ()[id number] FDA Start: 08-29-2024 Arthroplasty, knee, total, minimally invasive Knee stem ()[id number] FDA Start: 08-29-2024 Arthroplasty, knee, total, minimally invasive Uncoated knee tibia prosthesis, metallic ()[id number] FDA Start: 08-29-2024 CYSTOSCOPY RETROGRADE STENT INSERTION [...] Patient Health Questionnaire 2 item (PHQ-2) [Reported] [facility] 08-31-2024 Functional status Patient is Pro gressing Toward Baseline [facility] Work Phone: 01-19-2024 Functional Status N/A [facility] 07-15-2023 Functional Status No [facility] 06-23-2023 Functional Status N/A [facility] Mental Status Date Assessment Result Facility 08-31-2024 Cognitive function Cognitive Sta tus Patient at Baseline [facility] Work Phone: Clinical Notes 06-23-2023 to 03-09-2025 Adarsh Manrique MD - 02/22/2025 9:00 AM Jennifer Noguera, PT - 11/28/2024 10:30 AM Minh Manrique MD - 11/23/2024 9:45 AM Dot Morfin DO - 10/02/2024 1:45 PM EDT Note Date & Type Note Facility 03-09-2025 Note [place] [facility] Subjective Jeannette Porter is a 79 y.o. year old female patient being seen for Follow-up (Patient is here today for a 6 month follow up), CVD, Hyperlipidemia, Hypertension, and Shortness of Breath (Increased SOB in the hot weather. ORTIZ with going upstairs ) Problem List[1] HPI 03/09/2025 The patient used to follow-up with Dr. Valerio. 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 Also noted to have PFO on her echo and small pericardial effusion. She is here today for follow-up visit. She reports that this summer when it was hot she was short of breath with exertion and also when climbing stairs which she did not used to have in the past. She denies any chest discomfort at rest or with exertion. She reports that she gained about 7 pounds after a vacation and she is not able to get rid of them. She denies orthopnea or paroxysmal nocturnal dyspnea or dizziness or palpitations. She denies legs edema or discomfort on exertion. She denies snoring or stopping breathing during the night, she denies being sleepy or lacking energy during the daytime She never been a smoker or exposed to smokers. She denies alcohol or illicit drugs ROS All systems were reviewed and they were negative except for the positive findings noted above in the history Medical History[2] Surgical History[3] Family History[4] Social History[5] Allergies Allergies[6] Medications Current Medications[7] Objective Visit Vitals BP 124/65 (BP Location: Left arm, Patient Position: Sitting) Pulse 73 Ht 1.549 m (5' 1 ) Wt 75.8 kg (167 lb) SpO2 97% BMI 31.55 kg/m??? Smoking Status Never BSA 1.81 m??? Physical exam: GENERAL: alert and oriented x3, well developed, in no acute distress. HEAD: atraumatic, normocephalic. EYES: MEMO, EOMI. NECK: trachea midline, no JVD present, no carotid bruits present. CARDIAC: S1, S2 present. RRR. No murmur, rubs, or gallops. RESPIRATORY: CTAB, no increased effort of breathing, no rales, rhonchi, or wheezing. ABDOMEN: soft, nontender, nondistended. EXTREMITIES: Mild edema of the left lower extremity and trivial edema of the right lower extremity. No rash/skin discoloration present. NEURO: strength/sensation equal and symmetric in bilateral upper and lower extremities. PSYCH: appropriate mood, affect, and judgement. Recent Labs 08/05/2024 Triglyceride 84, cholesterol 182, LDL 98, HDL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 General Internal Medicine 10/23/22 Adarsh Manrique MD [address] [place] [address] [place] [address] PCP - ACO Reach 10/22/22 Residential Nurse Relationship Specialty Start Date End Date Adarsh Manrique MD [address] [place] [address] [place] [address] PCP - General Internal Medicine 10/23/22 Adarsh Manrique MD [address] [place] [address] [place] [address] PCP - ACO Reach 10/22/22 Residential Nurse Relationship Specialty Start Date End Date Adarsh Manrique MD [address] [place] [address] [place] [address] PCP - General Internal Medicine 10/23/22 Adarsh Manrique MD [address] [place] [address] [place] [address] PCP - ACO Reach 10/22/22 Residential Nurse Relationship Specialty Start Date End Date Adarsh Manrique MD [address] [place] [address] [place] [address] PCP - General Internal Medicine 10/23/22 Adarsh Manrique MD [address] [place] [address] [place] [address] PCP - ACO Reach 10/22/22 Residential Nurse Relationship Specialty Start Date End Date Adarsh Manrique MD [address] [place] [address] [place] [address] PCP - General Internal Medicine 10/23/22 Adarsh Manrique MD [address] [place] [address] [place] [address] PCP - ACO Reach 10/22/22 Residential Nurse Relationship Specialty Start Date End Date Adarsh Manrique MD [address] [place] [address] [place] [address] PCP - General Internal Medicine 10/23/22 Adarsh Manrique MD [address] [place] [address] [place] [address] PCP - ACO Reach 10/22/22 Residential Nurse Relationship Specialty Start Date End Date Adarsh Manrique MD [address] [place] [address] [place] [address] PCP - General Internal Medicine 10/23/22 Adarsh Manrique MD [address] [place] [address] [place] [address] PCP - ACO Reach 10/22/22 Team Status: [...] Attending Provider Active Start: June 08, 2024 Residential Nurse Relationship Specialty Start Date End Date Adarsh Manrique MD [address] [place] [address] [place] [address] PCP - General Internal Medicine 10/23/22 Adarsh Manrique MD [address] [place] [address] [place] [address] PCP - ACO Reach 10/22/22 Residential Nurse Relationship Specialty Start Date End Date Adarsh Manrique MD [address] [place] [address] [place] [address] PCP - General Internal Medicine 10/23/22 Adarsh Manrique MD [address] [place] [address] [place] [address] PCP - ACO Reach 10/22/22 Residential Nurse Relationship Specialty Start Date End Date Adarsh Manrique MD [address] [place] [address] [place] [address] PCP - General Internal Medicine 10/23/22 Adarsh Manrique MD [address] [place] [address] [place] [address] PCP - ACO Reach 10/22/22 Residential Nurse Relationship Specialty Start Date End Date Adarsh Manrique MD [address] [place] [address] [place] [address] PCP - General Internal Medicine 10/23/22 Adarsh Manrique MD [address] [place] [address] [place] [address] PCP - ACO Reach 10/22/22 Team Status: [...] 2024 End: August 31, 2024 Yani De Leon DO Other Provider Active Start : August 29, 2024 End: August 31, 2024 Adeel Singletary MD Other Provider Active Start : August 29, 2024 End: August 31, 2024 Jovani Callahan DO Other Provider Active Start: August 29, 2024 End: August 31, 2024 Vazquez Marvin MD Other Provider Active Start: August 29, 2024 End: August 31, 2024 Ivana Kelly MD Other Provider Active Start : August 29, 2024 End: August 31, 2024 Jose Antony DO Other Provider Active St art: August 29, 2024 End: August 31, 2024 John Dorado MD Other Provider Active Start: A pril 2024 End: August 31, 2024 Nhi Graham , PHARMACY INTERN Other Provider Active Start: August 29, 2024 [...] Bora Severino MD Other Provider Active Start: Apr il 2024 End: August 31, 2024 Lauren Soto CARDIOLOGY PHYSICIAN-C Other Provider Active St art: August 29, 2024 End: August 31, 2024 Wade Rose , PHARMACY INTERN Other Provider Active Star t: August 29, 2024 End: August 31, 2024 Serjio Garsia MD Other Provider Active Start: August 29, 2024 End: August 31, 2024 Alex Maloney MD Other Provider Active Start: Ap ril 2024 End: August 31, 2024 Abraham Ramirez MD Other Provider Active Start: Apr il 2024 End: August 31, 2024 Terrie Vicente MD Other Provider Active Star t: August 29, 2024 End: August 31, 2024 Robinson Hall MD Other Provider Active Start: A pril 2024 End: August 31, 2024 Tomeka Vuong DO Other Provider Active Start: Ap ril 2024 End: August 31, 2024 Chivo Ordaz DO Other Provider Active Start : August [...] 2024 End: August 31, 2024 Bro Banerjee DO Other Provider Active [...] Patel MD Other Provider Active Start: Ap 2024 End: August 31, 2024 Devon Johnson MD Other Provider Active Start: August 29, 2024 End: August 31, 2024 John Mckeon MD Other Provider Active Start : August 29, 2024 End: August 31, 2024 Scotty Dill MD Other Provider Active Start: A pril 2024 End: August 31, 2024 Felisa Saxena APRN Other Provider Active Sta rt: August 29, 2024 End: August 31, 2024 Sami Hernandes APRN Other Provider Active Start: August 29, 2024 End: August 31, 2024 Shelby Soto RN Other Provider Active Start: A pril 2024 End: August 31, 2024 Team Status: Active Member Role Status Dates Adarsh Manrique II MD Primary Care Provider Active Start: August 29, 2024 Demarcus Barahona II, MD Attending Timbo spicer, Other Provider Active Start: August 29, 2024 Conner Aldana MD Other Provider Active Start: A pril 2024 Dahiana Nielson MD Other Provider Active Start: A pril 2024 Terrie Vicente MD Other Provider Active Star t: August 29, 2024 Devon Johnson MD Other Provider Active Start: August 29, 2024 Sami Hernandes APRN Other Provider Active Start: August 29 Selma Momin APRN Other Provider Active Star t: August 29, 2024 Shelby Soto RN Other Provider Active Start: A pri2024 John Mckeon MD Other Provider Active Start [...] Other Provider Active Start: A pril 2024 Wade Rose APRN Other Provider Active Star t: August 29, 2024 Adarsh New MD Other Provider Active S tart: August 29, 2024 Robinson Hall MD Other Provider Active Start: A pril 2024 Bora Severino MD Other Provider Active Start: Apr il 2024 Ariadna Spear RN Other Provider Active Star t: August 29, 2024 Felisa Saxena APRN Other Provider Active Sta rt: August 29, 2024 Felix Smith DO Other Provider Active Start: August 29, 2024 Brian Patel MD Other Provider Active Start: Ap ril 2024 Dennys Montesinos MD Other Provider Active Start: August 29, 2024 Jovani Callahan , DO Other Provider Active Start: August 29, 2024 Lauren Soto NP-C Other Provider Active St art: August 29, 2024 Adeel Singletary MD Other Provider Active Start : August 29, 2024 Chivo Ordaz , DO Other Provider Active Start : August 29, 2024 Yani De Leon , DO Other Provider Active Start : August 29, 2024 Fidelia Kruse MD Other Provider Active Start: August 29, 2024 Jose Antony , DO Other Provider Active St art: August 29, 2024 Sangita Zamora , PHARMACY INTERN Other Provider Active St art: August 29, [...] Ramirez MD Other Provider Active Start: Aug Tomeka Vuong , DO Other Provider Active Start: Ap ril 2024 Dariela Hernández APRN Other Provider Active Start : August 29, 2024 Nhi Graham APRN Other Provider Active Start: August 29, 2024 Alex Maloney MD Other Provider Active Start: Ap ril 2024 Otilio Umanzor , DO Other Provider Active Start: August 29, 2024 Rena Alexis MD Other Provider Active Start: August 29, 2024 José Luis Griffith MD Other Provider Active Start: A pril 2024 Residential Nurse Relationship Specialty Start Date End Date Adarsh Manrique MD [address] [place] [address] PCP - General Internal Medicine 10/23/22 Adarsh Manrique MD [address] [place] [address] PCP - ACO Reach 10/22/22 Team Status: [...] October 18, 2024 End: October 18, 2024 Residential Nurse Relationship Specialty Start Date End Date Adarsh Manrique MD [address] [place] [address] PCP - General Internal Medicine 10/23/22 Adarsh Manrique MD [address] [place] [address] PCP - ACO Reach 10/22/22 Residential Nurse Relationship Specialty Start Date End Date Adarsh Manrique MD [address] [place] [address] PCP - General Internal Medicine 10/23/22 Adarsh Manrique MD [address] [place] [address] PCP - ACO Reach 10/22/22 Team Status: [...] November 29, 2024 End: November 29, 2024 Residential Nurse Relationship Specialty Start Date End Date Adarsh Manrique MD [address] [place] [address] PCP - General Internal Medicine 10/23/22 Adarsh Manrique MD [address] [place] [address] PCP - ACO Reach 10/22/22 Reason for [...] Reason Comments Follow-up Glaucoma Reason Comments Dizziness Reason Comments Hypertension FOR RECORDS PERTAINING TO PATIENTS WHO ARE [...] BE BASED ON THE PRIMARY CLINICAL RECORDS. [email or web address] provides no warranty or guarantee of the accuracy or completeness of information in this document.
--- OUTSIDE RECORDS SUMMARY | 2025-03-15 13:12 | XMS_ITS | Encounter Summary ---
Author Organization [facility] Address [address] [place] [address] Care Team Providers Care Telecommunications Administrator Name Role Phone Adarsh Manrique MD Primary Care Provider [phone] Adarsh Manrique MD Unavailable [phone] Kelly Nice SUPERVISOR DIALS Unavailable [phone] Encounter Details Date Type Department Care [...] 03/19/2025 2:00 PM EDT Office Visit [facility] [address] [place] [phone] Raffaele Castillo, DO [address] [place] [address] 07/25/2025 9:30 AM EST Office Visit [facility] [place] [facility] [address] [facility] [address] [place] [address] Adarsh Manrique MD [address] [place] [address] documented as of this encounter Procedures Procedure Name Priority Date/Time Associated Diagnosis Comments US RENAL BI 09/15/2023 9:16 AM EDT documented in this encounter Results * US RENAL BI (09/15/2023 9:16 AM EDT) Anatomical Region Laterality Modality Other 09/15/2023 9:16 AM EDT Narrative 09/15/2023 9:19 AM EDT [address] [address] Ultrasound Report Signed Patient: MAVIS BRIGHT MR#: [id number] : 1945 Acct:[id number] Age/Sex: 78 / F ADM Date: 09/15/23 Loc: US Attending Dr: Rhina Baptiste M.D. Ordering Physician: Rhina Baptiste M.D. Date of Service: 09/15/23 Procedure(s): US renal BI Accession Number(s): [id number] cc: ADARSH MANRIQUE ; Rhina Baptiste M.D. [address] [address] Patient Name: MAVIS BRIGHT MRN: [id number] date: 1945 Sex: F Assigned Patient Location: US Current Patient Location: US Accession/Order Number: [id number] Exam Date: 09/15/2023 08:02 Report Date: 09/15/2023 [...] M.D. Signed By: 09/15/23918 DD/ 5 TD/TT: Patient Care Nursing Assistant: Procedure Note Radiology, Radiologist, - 09/15/2023 [place] [address] Ultrasound Report Signed Patient: MAVIS BRIGHT GMR#: [id number] : 1945cct:[id number] Age/Sex: 78 / FADM Date: 09/15/23 Loc: US Attending Dr: Rhina Baptiste M.D. Ordering Physician: Rhina Baptiste M.D. Date of Service: 09/15/23 Procedure(s): US renal BI Accession Number(s): [id number] cc: ADARSH MANRIQUE ; Rhina Baptiste M.D. [address] [place] [address] Patient Name: MAVIS BRIGHT MRN: [id number] date: 1945 Sex: F Assigned Patient Location: US Current Patient Location: US Accession/Order Number: [id number] Exam Date: 09/15/2023 08:02 Report Date: 09/15/2023 [...] Calero M.D. Signed By:09/15/23918 DD/ 5 TD/TT: Patient Care Nursing Assistant: us Generic External Data Provider [facility] Final Result documented in this encounter Visit Diagnoses Not on filedocumented in this encounter Care Teams Telecommunications Administrator Relationship Specialty Start Date End Date Adarsh Manrique MD [address] [facility] [address] [place] [address] PCP - General Internal Medicine 10/23/22 Adarsh Manrique MD [address] [facility] [address] [place] [address] PCP - ACO Reach 10/22/22 Kelly Nice, JOSE MANUEL [address] [place] [address] Eligibility And Occupancy Interviewer Family Medicine 10/25/24 11/14/24 documented as of this encounter
--- OUTSIDE RECORDS SUMMARY | 2025-03-15 13:12 | XMS_ITS | Encounter Summary ---
Author Organization [facility] Address [address] [place] [address] Care Team Providers Care Printed Circuit Board Panels Deburrer Name Role Phone Adarsh Manrique MD Primary Care Provider Adarsh Manrique MD Unavailable [phone] Kelly Nice MAINSPRING STRIP GAUGER Unavailable [phone] Encounter Details Date Type Department Care Team (Late st Contact Info) Description 12/14/2023 Abstract [facility] [place] [facility] [address] [facility] [address] [place] [phone] Adarsh Manrique MD [address] [facility] [address] [place], [place] [id number] Social History Tobacco Use Types Packs/Day Years [...] 03/19/2025 2:00 PM EDT Office Visit [facility] [address] [place] [phone] Raffaele Castillo, DO [address] [place] [address] 07/25/2025 9:30 AM EST Office Visit [facility] [place] [facility] [address] [facility] [address] [place] [address] Adarsh Manrique MD [address] [facility] [address] [place] [address] documented as of this encounter Visit Diagnoses Not on filedocumented in this encounter Care Teams Printed Circuit Board Panels Deburrer Relationship Specialty Start Date End Date Adarsh Manrique MD [address] [facility] [address] [place] [address] PCP - General Internal Medicine 10/23/22 Adarsh Manrique MD [address] [facility] [address] [place] [address] PCP - ACO Reach 10/22/22 Kelly Nice, JOSE MANUEL [address] [place] [address] Utility Worker [place] [facility] 10/25/24 11/14/24 documented as of this encounter
--- NOTE | 2025-03-15 14:08 | MM_ITS ---
Patient Name: MAVIS PORTER MR#: [id number] : 1945 Exam Date: 03/15/2025 Ordering Doctor: DR LAUREN CONNER M.D. RADIOLOGY REPORT PROCEDURE: MM TOMOSYNTHESIS SCREENING BI COMPARISON: MM TOMOSYNTHESIS SCREENING BI, 12/08/2023. MG MAMM SCREEN 3D MARCOS CAD, 08/24/2022. MG MAMM SCREEN MARCOS W CAD, 01/03/2015. INDICATIONS: Screening Calculator Name NCI Breast Cancer Risk Assessment Tool 5 Year Breast Cancer Risk 3.20% Lifetime Breast Cancer Risk 5.80% Personal Breast Cancer No Personal Ovarian Cancer No Treatments None Family Cancers Brother with mouth cancer at age 70. LOCATION: [facility] BREAST COMPOSITION: There are scattered areas of fibroglandular density. FINDINGS: DIAGNOSTIC CATEGORY 1--NEGATIVE. RIGHT BREAST: No significant suspicious finding. LEFT BREAST: No significant suspicious finding. RECOMMENDATIONS: ROUTINE MAMMOGRAM AND CLINICAL EVALUATION IN 12 MONTHS. Dictated by: Hang Bray MD on 03/15/2025 at 15:45 Approved by: Hang Bray MD on 03/15/2025 at 15:53
== END 2025-03-15 13:05 | disposition home or self-care (01) ==
LOC: MAMMO 13:05
PROVIDERS: PCP Internal Medicine; Visit Provider Internal Medicine
DX: Z12.31 Encounter for screening mammogram for malignant neoplasm of breast (principal); Z80.8 Family history of malignant neoplasm of other organs or systems
CPT/HCPCS: 77063; 77067

== ENCOUNTER 2025-03-15 13:07 | Outpatient (OUT) | payer MEDICARE, OTHER, SELFPAY ==
--- NOTE | 2025-03-15 13:00 | CA_ITS ---
Patient Name: MAVIS PORTER MR#: [id number] : 1945 Exam Date: 03/15/2025 Ordering Doctor: DR. MATY GARZA M.D. ECHOCARDIOGRAM REPORT PROCEDURE: CA ECHO DOPPLER COMPLETE INDICATIONS: Dyspnea on exertion COMPARISON: None. DESCRIPTION: COMPLETE ECHOCARDIOGRAM Real-time transthoracic echocardiography with 2D, M-mode, spectral and color flow Doppler performed. QUALITY: Technical quality was good. LEFT VENTRICLE: Normal chamber size. Normal left ventricular wall thickness. LV EF: Global left ventricular systolic function is normal; visually estimated ejection fraction is 55 to 60%. No significant wall motion abnormalities. DIASTOLIC: Grade 1 diastolic dysfunction. ATRIAL SEPTUM: Visually appears intact; there is suggestion of color flow across the interatrial septum. Agitated saline contrast study was performed. Suboptimal opacification. No obvious intracardiac shunt. LEFT ATRIUM: Normal chamber size. RIGHT ATRIUM: Normal chamber size. RIGHT VENTRICLE: Normal chamber size. Normal right ventricular systolic function. TRICUSPID VALVE: Normal mobility and thickness. No regurgitation. Unable to assess right-sided pressures due to lack of measurable tricuspid regurgitation. MITRAL VALVE: Normal mobility and thickness. No evidence of mitral valve stenosis. There is no mitral annular calcification. No mitral regurgitation. AORTIC VALVE: Normal trileaflet appearance. No visible sclerosis. Normal leaflet mobility. No evidence of aortic valve stenosis. No aortic regurgitation. AORTIC ROOT: Normal diameter and appearance. PULMONIC VALVE: Normal thickness and mobility. No stenosis. Trivial regurgitation. PERICARDIUM: No significant pericardial effusion. IVC: Collapses with inspiration. IVC is normal in size. CONCLUSION: 1. Global left ventricular systolic function is normal; visually estimated ejection fraction is 55 to 60% 2. Right ventricular size and function are normal 3. Grade 1 diastolic dysfunction 4. Unable to assess right-sided pressures due to lack of measurable tricuspid regurgitation 5. No significant valvular abnormalities Adult Echocardiography Procedure Report Left Ventricle LVEDD (3.7 - 5.6 cm): 3.93 cm LVESD (2.2 - 4.0 cm): 2.48 cm LVIVS thickness (0.6 - 1.2 cm): 1.30 cm LVPW thickness (0.5 - 1.0 cm): 0.97 cm e': 0.05 m/s E - e': 12.82 LVOT Max Gradient: 1.91 mm[Hg] LVOT Area (cm2): 0.69 m/s Peak Velocity (LVOT): 0.69 m/s Mean Velocity (LVOT): 0.47 m/s LVOT Diameter 2.21 cm Left Ventricular Ejection Fraction: 75.34 % Left Atrium LA Volume Index (2D A2C): 24.81 ml/m2 Left Atrium Systolic Dimension: 3.85 cm Mitral Valve MV E to A Ratio: 0.58 Mitral Valve A-Wave Peak Velocity: 1.11 m/s Mitral Valve E-Wave Peak Velocity: 0.65 m/s Right Ventricle Aorta AO Root Diam: 3.47 cm Aortic Valve AoV Area (Peak Esdras): 2.24 cm2, 2.24 cm2 AoV Area (VTI): 2.72 cm2, 2.72 cm2 Peak Velocity(Antegrade Flow): 1.19 m/s Peak Gradient(Antegrade Flow): 5.66 mm[Hg] Mean Velocity(Antegrade Flow): 0.72 m/s Mean Gradient(Antegrade Flow): 2.54 mm[Hg] Velocity Time Integral: 25.81 cm Tricuspid Valve Peak Velocity (Regurgitant Flow): 2.46 m/s Pulmonic Valve Peak Velocity: 0.98 m/s Peak Gradient: 3.82 mm[Hg] Right Atrium Right Atrium Systolic Pressure: 28.46 ml, 28.46 ml Dictated by: Gary Paez M.D. on 03/15/2025 at 17:17 Approved by: Gary Paez M.D. on 03/15/2025 at 17:27
--- OUTSIDE RECORDS SUMMARY | 2025-03-15 13:13 | XMS_ITS | CCD ---
Author Organization [facility] Inform ion Partnership [facility] CliniSyny Care Team Providers Care Site Manager Name Role Phone DR ADARSH MANRIQUE Admitting Unavailable DR ADARSH MANRIQUE Attending Unavailable DR ADARSH MANRIQUE Primary Care Unavailable DR ADARSH MANRIQUE Consulting Unavailable DAHIANA, DR KYARA Hightower Consulting Unavailable ADARSH MANRIQUE Primary Care Physician [phone] Adarsh Manrique MD Primary Care Provider Adarsh Manrique MD Unavailable Adarsh Manrique II Primary Care Provider Demarcus Barahona MD Attending Provider Adarsh Manrique II Primary Care Provider [phone] Demarcus Barahona MD Attending Provider Ariadna Spear RN Other Provider Unavailable Mellissa RN, Cristal Other Provider Unavailable Mady RNNorma Other Provider Unavailable Janis Rondon RN Other Provider Unavailable Selina Gallego RN Other Provider Unavailable Suzette Carey RN Other Provider Unavailable Fidelia Kruse MD Other Provider Yani De Leon DO Other Provider Adeel Singletary MD Other Provider [phone] Jovani Callahan DO Other Provider Vazquez Marvin MD Other Provider Ivana Kelly MD Other Provider [phone] Jose Antony DO Other Provider John Dorado MD Other Provider Unavailable Nhi Graham APRN Other Provider Rena Alexis MD Other Provider [phone] Gladis JOHNS, José Luis Other Provider Jono JOHNS, Estefani Other Provider Unavailable Dennys Montesinos MD Other Provider Jose Mcclain DO Other Provider Ted Ontiveros MD Other Provider Bora Severino MD Other Provider Brittany ARTIST'S MODEL-C, Lauren Ortiz Other Provider Milton LUONG, Wade Rojas Other Provider Unavailable Sun JOHNS, Serjio Dejesus Other Provider Haider JOHNS, Alex Other Provider James JOHNS, Abraham Other Provider Jules JOHNS, Terrie Other Provider Unavailable Robinson Hall MD Other Provider Tomeka Vuong DO Other Provider Orlin DO, Chivo Hightower Other Provider Jazmin Ulrich APRN Other Provider Otilio Umanzor DO Other Provider [phone] Chaz JOHNS, Roberto Rojas Other Provider Dariela Hernández APRN Other Provider Sangita Zamora APRN Other Provider [phone] Naga JOHNS, Dahiana Other Provider Unavailable Adarsh New MD Other Provider Banerjee DOBro Other Provider [phone] Luis DOFelix Other Provider James JOHNS, Flavio Roberto Other Provider Susana Montgomery MD Other Provider [phone] Selma Momin APRN Other Provider Unavailable Conner Aldana MD Other Provider Jorge JOHNS, Brian Other Provider Devon Johnson MD Other Provider Linda JOHNS, John Zendejas Other Provider [phone] Scotty Dill MD Other Provider Felisa Saxena APRN Other Provider Sami Hernandes APRN Other Provider Shelby Soto RN Other Provider Unavailable Manrique II, Adarsh Primary Care Provider Demarcus Barahona MD Attending Provider Burton II, Adarsh Primary Care Provider [phone] Demarcus Barahona MD Attending Provider Jun GAGNON, [...] Jun GAGNON, Demarcus Rojas Attending Unavailabl e Dodson II, Demarcus M Admitting Unavailabl e Adarsh Manrique Primary Care Unavailable Jun II, Demarcus Rojas Attending Unavailabl e Adarsh Manrique Primary Care Unavailable Dodson II, Demarcus M Admitting Unavailabl e Dodson II, Demarcus M Attending Unavailabl e Adarsh Manrique Primary Care Unavailable Dodson II, Demarcus M Admitting Unavailabl e Dodson II, Demarcus M Admitting Unavailabl e Dodson II, Demarcus M Attending Unavailabl e Adarsh [...] Facility (1 source) Nitrofurantoin Drug Allergy [facility] Repository (20 sources) Nitrofurantoin; Translations: [nitrofurantoin] Drug Allergy 09-14-19 19 Dizziness, Other (qualifier value) [facility] (6 sources) oxyCODONE; Translations: [oxycodone] Drug Allergy 08-31-19 25 Dizziness [facility] (1 source) NITROFURANTOIN MONOHYD/M-CRYST; Translations: [NITROFURANTOIN MONOHYD/M-CRYST] Propensity to adverse reactions to drug (disorder) 07-09-19 [facility] Repository Medications Current Medications Medication Drug Class(es) [...] Start: 06-23-2023 take 1 capsule by mo cth once daily omeprazole (PriLOSEC) [address] [...] day(s), 10 tab(s), Refill(s) 0, [facility], 154, cm, 07/15/23 15:50:00 EST, Height/Length Dosing, [...] 10:43am docusate sodium 50 mg / sennosides, pen[facility] 8.6 mg oral tablet (8 sources) Start: [...] November 03, 2018 3:43pm polyethylene glycol 3350 87860 mg powder for oral solution (8 sources) [...] 2018 12:00am September 13, 2018 2:29pm sennosides, penitentiary 8.6 mg oral tablet (12 sources) Start: [...] cardiovascular system; Translations: [Atherosclerotic heart disease of [place] coronary artery without angina pectoris] Onset: 10-29-2022 [...] Range Facility Office Visiton 03-09-2025 Follow-up visit [id number] Jeannette Porter 1945 F Date Provider Department Center 03/09/2025 [id number] ROJAS STEVEN [facility] Family History Problem Relation Age of Onset Other Father Family Status - Relation Status Age at Mother Father Level of Service:68080 ME OFFICE/OUTPATIENT ESTABLISHED MOD MDM 30 MIN Reason for Visit and Comments: Follow-up [313558] - Patient is here today for a 6 month follow up CVD [Other] Hyperlipidemia [182] Hypertension [343061] Shortness of Breath [057622] - Increased SOB in the hot weather. ORTIZ with going upstairs Normal [facility] Ambulatory Visit Summaryon 0 02-21-2025 Ambulatory Visit [...] Keerthi Trujillo MD Where: [facility] [place] [id number]- You Need to Schedule the Following Appointments [...] ? 8 oz (237 mL) of milk, uidkoql-ykikncvrhxpt-sqkxv milk, and calcium-fortifiedfruit juice. Calcium-fortified means that calcium has been added to these drinks. ? 8 oz (237 mL) of kefir, yogurt, and soy yogurt. ? 4 oz (114 g) of tofu. ? 1 oz (28 g) of cheese. ? 1 cup (15 (more content not included)... Normal [facility] Reminderson 02-21-2025 Reminders Reminders From: Carleen Truong To: HEIDI - Yolanda Trujillo; Sent: 02/21/2025 09:47:41 EDT Show up: 01/21/2026 09:47:00 EDT Subject: everton FLOR Due Date/Time: 02/21/2026 09:47:00 EDT Reminder Message Please Remember to: Please call pt to schedule CHACHO for 1 yr appt. She will also need KUB. Both orders in 02/21/25 encounter. Thanks! Normal [facility] Urology Office/Clinic Noteon 02-21-2025 Urology Office/Clinic Note Urology Office/Clinic Note Chief Complaint Pt here for follow up with KUB CHACHO HPI Staff 1 yr with KUB and CHACHO d/t kidney stones. CHACHO & KUB 01/23/25 TB. *called [facility] to have these pushed over SH 02/14/25 [...] intake, goal 90-100 oz, add 1/4 cup lemon/[place] tribe daily -Dietary Mg and other mods (more fruits/veg, limit animal protein and salt) 2. 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 Normal [facility] Comment on above: Result Comment: Elec tronically Signed By: Keerthi Trujillo MD\.br\Date and Time Signed: 02/21/25 09:51 EDT\.br\Electronically Co-Signed By: Carleen Truong\.br\Date and Time Co-Signed: 02/21/25 09:46 EDT RENAL BIon 01-23-[address] [place] [address] Ultrasound Report Signed Patient: JEANNETTE PORTER MR#: [id number] : 1945 Acct:[id number] Age/Sex: 79 / F ADM Date: 01/23/25 Loc: US Attending Dr: Keerthi Trujillo M.D. Ordering Physician: Keerthi Trujillo M.D. Date of Service: 01/23/25 Procedure(s): US renal BI Accession Number(s): [id number] cc: ADARSH MANRIQUE ; Keerthi Trujillo M.D. [place] [id number] Patient Name: JEANNETTE PORTER MRN: [id number] date: 1945 Sex: F Assigned Patient Location: US Current Patient Location: US Accession/Order Number: [id number] Exam Date: 01/23/2025 09:45 Report Date: 01/23/2025 [...] Fink M.D. 01/23/2025 10:31 AM Dictation Location: [place] [address] Electronically authenticated by: [id number] Y Date: 01/23/2025 10:31 Dictated By: Nolvia Fink M.D. Signed By: 01/23/25 1033 DD/ 1031 TD/TT: Supervisor Fertilizer Processing: [facility] Radiology, Johnogvikram villafana MD - 01/23/2025 [place] [address] Ultrasound Report Signed Patient: JEANNETTE PORTER MR#: [id number] : 1945 Acct:[id number] Age/Sex: 79 / F ADM Date: 01/23/25 Loc: US Attending Dr: Keerthi Trujillo M.D. Ordering Physician: Keerthi Trujillo M.D. Date of Service: 01/23/25 Procedure(s): US renal BI Accession Number(s): [id number] cc: ADARSH MANRIQUE ; Keerthi Trujillo M.D. [place] [address] Patient Name: JEANNETTE PORTER MRN: [facility]:[id number] date: 1945 Sex: F Assigned Patient Location: US Current Patient Location: US Accession/Order Number: [id number] Exam Date: 01/23/2025 09:45 Report Date: 01/23/2025 [...] Fink M.D. 01/23/2025 10:31 AM Dictation Location: [place] [address] Electronically authenticated by: [id number] Y Date: 01/23/2025 10:31 Dictated By: Nolvia Fink M.D. Signed By: 01/23/25 1033 DD/ 1031 TD/TT: Supervisor Fertilizer Processing: [facility] Radiology Study observation (narrative) [facility] US RENAL BIOrdered By: Radio logist Radiology on 01-23-2025 [facility] Work Phone: XR ABDOMEN 1Von 01-23-2025 [place] [address] XRay Report Signed Patient: JEANNETTE PORTER MR#: [id number] : 1945 Acct:[id number] Age/Sex: 79 / F ADM Date: 01/23/25 Loc: US Attending Dr: Keerthi Trujillo M.D. Ordering Physician: Keerthi Trujillo M.D. Date of Service: 01/23/25 Procedure(s): XR abdomen 1V Accession Number(s): [id number] cc: ADARSH MANRIQUE ; Keerthi Trujillo M.D. [place] [id number] Patient Name: JEANNETTE PORTER MRN: [id number] date: 1945 Sex: F Assigned Patient Location: Current Patient Location: US Accession/Order Number: [id number] Exam Date: 01/23/2025 09:45 Report Date: 01/23/2025 [...] Fink M.D. 01/23/2025 10:25 AM Dictation Location: [place] [address] Electronically authenticated by: [id number] Y Date: 01/23/2025 10:25 Dictated By: Nolvia Fink M.D. Signed By: 01/23/25 1028 DD/ 1025 TD/TT: Supervisor Fertilizer Processing: [facility] Radiology, Radiologi MD broderick - 01/23/2025 [place] [address] XRay Report Signed Patient: JEANNETTE PORTER MR#: [id number] : 1945 Acct:[id number] Age/Sex: 79 / F ADM Date: 01/23/25 Loc: US Attending Dr: Keerthi Trujillo M.D. Ordering Physician: Keerthi Trujillo M.D. Date of Service: 01/23/25 Procedure(s): XR abdomen 1V Accession Number(s): [id number] cc: ADARSH MANRIQUE ; Keerthi Trujillo M.D. [facility] [place] [address] Patient Name: JEANNETTE PORTER MRN: [facility]:[id number] date: 1945 Sex: F Assigned Patient Location: Current Patient Location: US Accession/Order Number: [id number] Exam Date: 01/23/2025 09:45 Report Date: 01/23/2025 [...] Fink M.D. 01/23/2025 10:25 AM Dictation Location: [place] [address] Electronically authenticated by: [id number] Y Date: 01/23/2025 10:25 Dictated By: Nolvia Fink M.D. Signed By: 01/23/25 1028 DD/ 1025 TD/TT: Supervisor Fertilizer Processing: [facility] Radiology Study observation (narrative) [facility] XR ABDOMEN 1VOrdered By: Francisco Javier iologlaney Radiology on 01-23-2025 [facility] Work Phone: X-ray reportOrdered By: Buddy Bray on 11-29-2024 Study report [facility] [address] [place] [address] XRay Report Signed Patient: Jeannette Porter MR#: [id number] : 1945 Acct:[id number] Age/Sex: 79 / F ADM Date: 5 Loc: [facility] Room: Type: [facility] Attending Dr: Demarcus Barahona II, MD Copies to: Demarcus Barahona MD~ Ordering Provider: Demarcus Barhaona MD Date of Service: 11/29/24 XR/XR femur LT 2V*: Z47.1 - Aftercare following jointreplacement surgery ([id number]) XR/XR knee LT 2V: Z47.1 - Aftercare following joint replacement surgery ([id number]) XR/XR tibia fibula LT 2V*: Z47.1 - [...] Bray M.D. 11/29/2024 5:16 PM Dictation Location: [place] [address] Transcribed By: [facility] 11/29/241715 Dictated By: Hang Bray MD 11/29/241713 Signed By: 11/29/241715 [facility] Work Phone: XR knee LT 2Von 11-29-2024 XR knee LT 2V [facility] [address] [place] [address] XRay Report Signed Patient: Jeannette Porter MR#: [id number] 4 : 1945 Acct:[id number] Age/Sex: 79 / F ADM Date: 11/29/24 Loc: [facility] Room: Type: [facility] Attending Dr: Demarcus Barahona II, MD Copies to: Demarcus Barahona MD Ordering Provider: Demarcus Barahnoa MD Date of Service: 11/29/24 XR/XR femur LT 2V*: Z47.1 - Aftercare following joint replacement surgery ([id number]) XR/XR knee LT 2V: Z47.1 - Aftercare following joint replacement surgery ([id number]) XR/XR tibia fibula LT 2V*: Z47.1 - [...] MD 11/29/241713 Signed By: 11/29/241715 Normal [facility] X-ray reportOrdered By: Angel Stapleton on 10-18-2024 Study report [facility] [address] [place] [id number] XRay Report Signed Patient: Jeannette Porter MR#: [id number] : 1945 Acct:[id number] Age/Sex: 79 / F ADM Date: Loc: [facility] Room: Type: [facility] Attending Dr: Demarcus Barahona II, [...] MD 10/18/24 1519 Signed By: 10/18/24 1522 [facility] Work Phone: XR knee LT 3V - NOT FOR ER U Almaz 10-18-2024 XR knee LT 3V - NOT FOR ER USE [facility] [address] [place] [address] XRay Report Signed Patient: Jeannette Porter MR#: [id number] 4 : 1945 Acct:[id number] Age/Sex: 79 / F ADM Date: 10/18/24 Loc: [facility] Room: Type: [facility] Attending Dr: Demarcus Barahona II, [...] Stapleton M.D. 10/18/2024 3:22 PM Dictation Location: [place] [address] Transcribed By: [facility] 10/18/24 1522 Dictated By: Angel Stapleton II, MD 10/18/24 1519 Signed By: 10/18/24 1522 Normal [facility] Perimetry studyon 10-02-2024 [facility] Radiology Study observation (narrative) [facility] Basic Metabolic Panelon 04-0 Anion gap [Moles/Vol] 12.0 mmol/L Normal 6.0-15.0 Th e [facility] Comment on above: Performed By: #### B MP, CBC ####[address] [address] [facility] Calcium [Mass/Vol] 8.9 mg/dL Normal 8.6-10.3 [facility] Comment on above: Performed By: #### B MP, CBC ####[address] [address] [facility] Chloride [Moles/Vol] 106 mmol/L Normal 98-107 [facility] Comment on above: Performed By: #### B MP, CBC ####[address] [address] [facility] CO2 [Moles/Vol] 22.1 mmol/L Normal 21.0-31.0 [facility] Comment on above: Performed By: #### B MP, CBC ####[address] [address] [facility] Creatinine [Mass/Vol] 0.70 mg/dL Normal 0.60-1.20 [facility] Comment on above: Performed By: #### B MP, CBC ####[address] [address] [place] Creatinine Clr Calc Pharmacy 55.68 Normal [facility] Comment on above: Result Comment: PERF ORMED BY: [facility] [address] [place] [address] PATHOLOGIST DELINQUENT TAX COLLECTOR ASSISTANT SERA BAIRD M.D. Performed By: #### B MP, CBC ####[place] [id number] [facility] GFR/1.73 sq M.predicted MDRD (S/P/Bld) [Vol rate/Area] mL/min/{1.73_m2} Normal [facility] Comment on above: Performed By: #### B MP, CBC ####[place] [address] [facility] Glucose [Mass/Vol] 88 mg/dL Normal 70-100 [facility] Comment on above: Result Comment: [place] Glucose Reference Range is dependent on time and content of last meal. Glucose of more than 200 mg/dL in a nonstressed, ambulatory subject supports the diagnosis of Diabetes Mellitus. ADA recommended reference range Performed By: #### B MP, CBC ####[place] [address] [address] Potassium [Moles/Vol] 4.1 mmol/L Normal 3.5-5.1 [facility] Comment on above: Performed By: #### B MP, CBC ####[address] Sodium [Moles/Vol] 136 mmol/L Normal 136-145 [facility] Comment on above: Performed By: #### B MP, CBC ####[place] [address] [address] Urea nitrogen [Mass/Vol] 23 mg/dL Normal 7-25 [facility] Comment on above: Performed By: #### B MP, CBC ####[address] Basophils Auto (Bld) [#/Vol] Ordered By: Demarcus Barahona on 08-31-2024 Basophils (Bld) [#/Vol] Automated basophil count 0.0-0.2 [facility] Basophils/100 WBC Auto (Bld) Ordered By: Demarcus Barahona on 08-31-2024 Basophils/100 WBC (Bld) Automated basophil % . [facility] Calcium [Mass/volume] in Ser um or PlasmaOrdered By: Demarcus Barahona on 08-31-2024 Calcium [Mass/Vol] Calcium [Mass/volume ] in Serum or Plasma 8.6-10.3 [facility] Carbon dioxide, total [Moles /volume] in Serum or PlasmaOrdered By: Demarcus Barahona on 08-31-2024 CO2 [Moles/Vol] Carbon dioxide, tota l [Moles/volume] in Serum or Plasma 21.0-31.0 [facility] Chloride [Moles/volume] in S kee or PlasmaOrdered By: Demarcus Barahona on 08-31-2024 Chloride [Moles/Vol] Chloride [Moles/vol ume] in Serum or Plasma 98-107 [facility] Complete Blood Count Auto Di ffon 08-31-2024 Basophils (Bld) [#/Vol] 0.1 10*3/uL Normal 0.0-0.2 [facility] Comment on above: Result Comment: PERF ORMED BY: [facility] [place] [address] PATHOLOGIST DELINQUENT TAX COLLECTOR ASSISTANT SERA BAIRD M.D. Performed By: #### B MP, CBC ####[address] Basophils/100 WBC (Bld) 1.3 % Normal . [facility] Comment on above: Performed By: #### B MP, CBC ####[address] Eosinophils (Bld) [#/Vol] 0.2 10*3/uL Normal 0.0-0.45 [facility] Comment on above: Performed By: #### B MP, CBC ####[address] Eosinophils/100 WBC (Bld) 2.7 % Normal . [facility] Comment on above: Performed By: #### B MP, CBC ####[address] Erythrocyte distribution width (RBC) [Ratio] 14.4 % Normal 11.9-15.3 [facility] Comment on above: Performed By: #### B MP, CBC ####[address] Hematocrit (Bld) [Volume fraction] 34.4 % Normal 34.0-46.4 [facility] Comment on above: Performed By: #### B MP, CBC ####[address] Hemoglobin (Bld) [Mass/Vol] 11.6 g/dL Low 11.8-15.4 [facility] Comment on above: Performed By: #### B MP, CBC ####[address] Lymphocytes (Bld) [#/Vol] 1.8 10*3/uL Normal 1.00-4.8 [facility] Comment on above: Performed By: #### B MP, CBC ####[address] Lymphocytes/100 WBC (Bld) 28.3 % Normal . [facility] Comment on above: Performed By: #### B MP, CBC ####[address] MCH (RBC) [Entitic mass] 30.3 pg Normal 24.7-34.3 [facility] Comment on above: Performed By: #### B MP, CBC ####[address] MCV (RBC) [Entitic vol] 89.5 fL Normal 80-100 [facility] Comment on above: Performed By: #### B MP, CBC ####[address] Mean Corpuscular HGB Conc 33.8 g/dL Normal 32.0-35.0 [facility] Comment on above: Performed By: #### B MP, CBC ####[address] Monocytes (Bld) [#/Vol] 0.9 10*3/uL High 0.0-0.8 [facility] Comment on above: Performed By: #### B MP, CBC ####[address] Monocytes/100 WBC (Bld) 14.5 % Normal . [facility] Comment on above: Performed By: #### B MP, CBC ####[address] Neutrophils (Bld) [#/Vol] 3.4 10*3/uL Normal 1.8-7.7 [facility] Comment on above: Performed By: #### B MP, CBC ####[address] Neutrophils/100 WBC (Bld) 53.2 % Normal . [facility] Comment on above: Performed By: #### B MP, CBC ####[address] NRBC% 0.1 /100{WBC} Normal 0-0.5 [facility] Comment on above: Performed By: #### B MP, CBC ####[address] Platelet mean volume (Bld) [Entitic vol] 8.3 fL Normal 6.3-10.7 [facility] Comment on above: Performed By: #### B MP, CBC ####[address] Platelets (Bld) [#/Vol] 323 10*3/uL Normal 150-450 [facility] Comment on above: Performed By: #### B MP, CBC ####[address] RBC (Bld) [#/Vol] 3.84 10*6/uL Normal 3.60-5.00 [facility] Comment on above: Performed By: #### B MP, CBC ####[address] WBC (Bld) [#/Vol] 6.4 10*3/uL Normal 3.8-11.6 [facility] Comment on above: Performed By: #### B MP, CBC ####[address] Creatinine [Mass/volume] in Serum or PlasmaOrdered By: Demarcus Barahona on 08-31-2024 Creatinine [Mass/Vol] Creatinine [Mass/v olume] in Serum or Plasma 0.60-1.20 [facility] Eosinophils Auto (Bld) [#/Vo l]Ordered By: Demarcus Barahona on 08-31-2024 Eosinophils (Bld) [#/Vol] Automated eosinophil count 0.0-0.45 [facility] Eosinophils/100 WBC Auto (Bl d)Ordered By: Demarcus Barahona on 08-31-2024 Eosinophils/100 WBC (Bld) Automated eosinophil % . [facility] Erythrocyte distribution wid th Auto (RBC) [Ratio]Ordered By: Demarcus Barahona on 08-31-2024 Erythrocyte distribution width (RBC) [Ratio] Erythrocyte distribution width [Ratio] by Automated count 11.9-15.3 [facility] Glucose [Mass/volume] in Ser um or PlasmaOrdered By: Demarcus Barahona on 08-31-2024 Glucose [Mass/Vol] Glucose [Mass/volume ] in Serum or Plasma 70-100 [facility] Comment on above: ADA recommended refe rence rangeRandom Glucose Reference Range is dependent on time and content of last meal. Glucose of more than 200 mg/dL in a nonstressed, ambulatory subject supports the diagnosis of Diabetes Mellitus. Hematocrit Auto (Bld) [Volum e fraction]Ordered By: Demarcus Barahona on 08-31-2024 Hematocrit (Bld) [Volume fraction] Hematocrit [Volume Fraction] of Blood by Automated count 34.0-46.4 [facility] Hemoglobin [Mass/volume] in BloodOrdered By: Demarcus Barahona on 08-31-2024 Hemoglobin (Bld) [Mass/Vol] Hemoglobin [Mass/volume] in Blood Low 11.8-15.4 [facility] Leukocytes [#/volume] correc benigno for nucleated erythrocytes in Blood by Automated counOrdered By: Demarcus Barahona on 08-31-2024 WBC corrected for nucl RBC Auto (Bld) [#/Vol] Leukocytes [#/volume] corrected for nucleated erythrocytes in Blood by Automated coun 3.8-11.6 [facility] Lymphocytes Auto (Bld) [#/Vo l]Ordered By: Demarcus Barahona on 08-31-2024 Lymphocytes (Bld) [#/Vol] Lymphocytes [#/volume] in Blood by Automated count 1.00-4.8 [facility] Lymphocytes/100 WBC Auto (Bl d)Ordered By: Demarcus Barahona on 08-31-2024 Lymphocytes/100 WBC (Bld) Lymphocytes/100 leukocytes in Blood by Automated count . [facility] MCH Auto (RBC) [Entitic mass ]Ordered By: Demarcus aBrahona on 08-31-2024 MCH (RBC) [Entitic mass] MCH [Entitic mass] by Automated count 24.7-34.3 [facility] MCHC Auto (RBC) [Mass/Vol]Or dered By: Demarcus Barahona on 08-31-2024 MCHC (RBC) [Mass/Vol] MCHC [Mass/volume] by Automated count 32.0-35.0 [facility] MCV Auto (RBC) [Entitic vol] Ordered By: Demarcus Barahona on 08-31-2024 MCV (RBC) [Entitic vol] MCV [Entitic volume] by Automated count 80-100 [facility] Monocytes Auto (Bld) [#/Vol] Ordered By: Demarcus Barahona on 08-31-2024 Monocytes (Bld) [#/Vol] Automated blood monocyte count High 0.0-0.8 [facility] Monocytes/100 WBC Auto (Bld) Ordered By: Demarcus Barahona on 08-31-2024 Monocytes/100 WBC (Bld) Automated monocyte % . [facility] Neutrophils Auto (Bld) [#/Vo l]Ordered By: Demarcus Barahona on 08-31-2024 Neutrophils (Bld) [#/Vol] Neutrophils [#/volume] in Blood by Automated count 1.8-7.7 [facility] Neutrophils/100 WBC Auto (Bl d)Ordered By: Demarcus Barahona on 08-31-2024 Neutrophils/100 WBC (Bld) Automated neutrophil % . [facility] No Panel InformationOrdered By: Demarcus Barahona on 08-31-2024 Estimated GFR (CKD-EPI) > 60.0 mL/Min [facility] Creatinine Clearance (Chem 55.68 [facility] Nucleated erythrocytes [Pres ence] in Blood by Automated countOrdered By: Demarcus Barahona on 08-31-2024 Nucleated RBC Auto Ql (Bld) Nucleated erythrocytes [Presence] in Blood by Automated count 0-0.5 [facility] Platelet mean volume Auto (B ld) [Entitic vol]Ordered By: Demarcus Barahona on 08-31-2024 Platelet mean volume (Bld) [Entitic vol] Platelet mean volume [Entitic volume] in Blood by Automated count 6.3-10.7 [facility] Platelets Auto (Bld) [#/Vol] Ordered By: Demarcus Barahona on 08-31-2024 Platelets (Bld) [#/Vol] Platelets [#/volume] in Blood by Automated count 150-450 [facility] Potassium [Moles/volume] in Serum or PlasmaOrdered By: Demarcus Barahona on 08-31-2024 Potassium [Moles/Vol] Potassium [Moles/v olume] in Serum or Plasma 3.5-5.1 [facility] RBC Auto (Bld) [#/Vol]Ordere d By: Demarcus Barahona on 08-31-2024 RBC (Bld) [#/Vol] Erythrocytes [#/volu me] in Blood by Automated count 3.60-5.00 [facility] Serum or plasma anion gap de terminationOrdered By: Demarcus Barahona on 08-31-2024 Anion gap [Moles/Vol] Serum or plasma an ion gap determination 6.0-15.0 [facility] Sodium [Moles/volume] in Ser um or PlasmaOrdered By: Demarcus Barahona on 08-31-2024 Sodium [Moles/Vol] Sodium [Moles/volume ] in Serum or Plasma 136-145 [facility] Urea nitrogen [Mass/volume] in Serum or PlasmaOrdered By: Demarcus Barahona on 08-31-2024 Urea nitrogen [Mass/Vol] Urea nitrogen [Mass/volume] in Serum or Plasma 7-25 [facility] WBC Auto (Bld) [#/Vol]Ordere d By: Demarcus Barahona on 08-31-2024 WBC (Bld) [#/Vol] Leukocytes [#/volume ] in Blood by Automated count 3.8-11.6 [facility] Basic Metabolic Panelon 04-0 Anion gap [Moles/Vol] 12.7 mmol/L Normal 6.0-15.0 Th e [facility] Comment on above: Performed By: #### C KRISTINA, BMP ####[facility] [address] [place] [address] [facility] Calcium [Mass/Vol] 9.0 mg/dL Normal 8.6-10.3 [facility] Comment on above: Performed By: #### C KRISTINA, BMP ####[place] [id number] [facility] Chloride [Moles/Vol] 107 mmol/L Normal 98-107 [facility] Comment on above: Performed By: #### C BC, BMP ####[place] [id number] [place] [id number] [facility] CO2 [Moles/Vol] 22.4 mmol/L Normal 21.0-31.0 [facility] Comment on above: Performed By: #### C BC, BMP ####[place] [id number] [facility] Creatinine [Mass/Vol] 0.83 mg/dL Normal 0.60-1.20 [facility] Comment on above: Performed By: #### C BC, BMP ####[place] [id number] [facility] Creatinine Clr Calc Pharmacy 53.67 Normal [facility] Comment on above: Result Comment: PERF ORMED BY: [facility] [address] [place] [address] PATHOLOGIST DELINQUENT TAX COLLECTOR ASSISTANT SERA BAIRD M.D. Performed By: #### C , BMP ####[place] [id number] [facility] GFR/1.73 sq M.predicted MDRD (S/P/Bld) [Vol rate/Area] mL/min/{1.73_m2} Normal [facility] Comment on above: Performed By: #### C BC, BMP ####[place] [id number] [facility] Glucose [Mass/Vol] 103 mg/dL High 70-100 [facility] Comment on above: Result Comment: [place] om Glucose Reference Range is dependent on time and content of last meal. Glucose of more than 200 mg/dL in a nonstressed, ambulatory subject supports the diagnosis of Diabetes Mellitus. ADA recommended reference range Performed By: #### C BC, BMP ####[place] [id number] [facility] Potassium [Moles/Vol] 4.1 mmol/L Normal 3.5-5.1 [facility] Comment on above: Performed By: #### C BC, BMP ####[address] Sodium [Moles/Vol] 138 mmol/L Normal 136-145 [facility] Comment on above: Performed By: #### C BC, BMP ####[address] Urea nitrogen [Mass/Vol] 31 mg/dL High 7-25 [facility] Comment on above: Performed By: #### C BC, BMP ####[address] Complete Blood Count Auto Di ffon 08-30-2024 Basophils (Bld) [#/Vol] 0.0 10*3/uL Normal 0.0-0.2 [facility] Comment on above: Result Comment: PERF ORMED BY: [facility] [address] [place] [address] PATHOLOGIST DELINQUENT TAX COLLECTOR ASSISTANT SERA BAIRD M.D. Performed By: #### C BC, BMP ####[address] Basophils/100 WBC (Bld) 0.4 % Normal . [facility] Comment on above: Performed By: #### C BC, BMP ####[address] Eosinophils (Bld) [#/Vol] 0.0 10*3/uL Normal 0.0-0.45 [facility] Comment on above: Performed By: #### C BC, BMP ####[address] Eosinophils/100 WBC (Bld) 0.1 % Normal . [facility] Comment on above: Performed By: #### C BC, BMP ####[address] Erythrocyte distribution width (RBC) [Ratio] 14.2 % Normal 11.9-15.3 [facility] Comment on above: Performed By: #### C BC, BMP ####[address] Hematocrit (Bld) [Volume fraction] 33.1 % Low 34.0-46.4 [facility] Comment on above: Performed By: #### C BC, BMP ####[address] Hemoglobin (Bld) [Mass/Vol] 11.3 g/dL Low 11.8-15.4 [facility] Comment on above: Performed By: #### C BC, BMP ####[address] Lymphocytes (Bld) [#/Vol] 1.0 10*3/uL Normal 1.00-4.8 [facility] Comment on above: Performed By: #### C BC, BMP ####[address] Lymphocytes/100 WBC (Bld) 10.8 % Normal . [facility] Comment on above: Performed By: #### C BC, BMP ####[address] MCH (RBC) [Entitic mass] 30.5 pg Normal 24.7-34.3 [facility] Comment on above: Performed By: #### C BC, BMP ####[address] MCV (RBC) [Entitic vol] 89.1 fL Normal 80-100 [facility] Comment on above: Performed By: #### C BC, BMP ####[address] Mean Corpuscular HGB Conc 34.2 g/dL Normal 32.0-35.0 [facility] Comment on above: Performed By: #### C BC, BMP ####[address] Monocytes (Bld) [#/Vol] 0.9 10*3/uL High 0.0-0.8 [facility] Comment on above: Performed By: #### C BC, BMP ####[address] [address] [facility] Monocytes/100 WBC (Bld) 9.1 % Normal . [facility] Comment on above: Performed By: #### C BC, BMP ####[address] [address] [facility] Neutrophils (Bld) [#/Vol] 7.5 10*3/uL Normal 1.8-7.7 [facility] Comment on above: Performed By: #### C BC, BMP ####[address] [address] [facility] Neutrophils/100 WBC (Bld) 79.6 % Normal . [facility] Comment on above: Performed By: #### C BC, BMP ####[address] [address] [facility] NRBC% 0.1 /100{WBC} Normal 0-0.5 [facility] Comment on above: Performed By: #### C BC, BMP ####[address] [address] [facility] Platelet mean volume (Bld) [Entitic vol] 8.4 fL Normal 6.3-10.7 [facility] Comment on above: Performed By: #### C BC, BMP ####[address] [address] [facility] Platelets (Bld) [#/Vol] 368 10*3/uL Normal 150-450 [facility] Comment on above: Performed By: #### C BC, BMP ####[address] [address] [facility] RBC (Bld) [#/Vol] 3.71 10*6/uL Normal 3.60-5.00 [facility] Comment on above: Performed By: #### C BC, BMP ####[address] [address] [facility] WBC (Bld) [#/Vol] 9.5 10*3/uL Normal 3.8-11.6 [facility] Comment on above: Performed By: #### C , BMP ####[facility] [address] [place] [address] [facility] Pathology study report docum entOrdered By: Sera Baird on 08-30-2024 Pathology study [facility] Other Phone: [place] 08-29-2024 L ------ Specimen: [id number] Received: 08/29/24 Status: ROXANERoxann Morelos Num: [id number] Spec Type: Surgical Subm Dr: Demarcus Barahona MD Tissues: A Gross Only (L KNEE) Procedures: Level 1 Gross Age/ Patient Sex Location Account Attending Physician Jeannette Porter 79/F 4N [id number] Demarcus Barahona MD SPEC NUM: [id number] RECD: 08/29/24 STATUS: JENNIFER MORELOS NUM: [id number] DARNELL: 08/29/240000 [facility] DR: Demarcus Barahona MD ENTERED: 08/29/24 [facility] DR: ERVIN TYPE: Surgical DEPT: S ENTERED BY: [id number] RECV BY: [id number] ORDERED: Level 1 Gross ORDERED: Level 1 [...] uniform cut surfaces. GROSS ONLY-J CPT Codes 09843 Specimen: [id number] Received: 08/29/24 Status: JENNIFER Morelos Num: [id number] Spec Type: Surgical Subm Dr: Demarcus Barahona MD Tissues: A Gross Only (L KNEE) Procedures: Level 1 Gross Patient: Jeannette Porter [id number] (Continued) Signed (signature on file) Sera Baird MD 08/30/24 980 Normal [facility] X-ray reportOrdered By: Tomas Tafoya on 08-29-2024 Study report [facility] [place] [address] XRay Report Signed Patient: Jeannette Porter MR#: [id number] : 1945 Acct:[id number] Age/Sex: 79 / F ADM Date: 5 Loc: 4N Room: [address] [place] [address] Type: REG [facility] Attending Dr: Demarcus Barahona II, MD Copies [...] DO 08/29/24 1538 Signed By: 08/29/24 1538 [facility] XR knee LT 2Von 08-29-2024 XR knee LT 2V [facility] [place] [address] [place] [address] XRay Report Signed Patient: Jeannette Porter MR#: [id number] 4 : 1945 Acct:[id number] Age/Sex: 79 / F ADM Date: 08/29/24 Loc: Room: [address] [place] [address] Type: [facility] Attending Dr: Demarcus Barahona II, MD [...] 1538 Signed By: 08/29/24 1538 Normal [facility] X-ray reportOrdered By: Samia Fink on 08-17-2024 Study report [facility] [address] [place] [address] XRay Report Signed Patient: Jeannette Porter MR#: [id number] : 1945 Acct:[id number] Age/Sex: 79 / F ADM Date: 5 Loc: SOXD Room: Type: REG CLI Attending Dr: Demarcus Barahona II, MD Copies to: Demarcus Barahona MD~ Ordering Provider: Demarcus Barahona MD Date of Service: 08/17/24 XR/XR femur LT 2V*: M17.12 - Unilateral primary osteoarthritis, left knee ([id number]) XR/XR tibia fibula LT 2V*: M17.12 - [...] Nolvia Fink M.D.08/17/2024 3:56 PM Dictation Location: [place] [address] Transcribed By: [facility] 08/17/24 155 Dictated By: Nolvia Fink MD 08/17/24 1553 Signed By: 08/17/24 155 [facility] Work Phone: XR femur LT 2V*on 08-17-2024 XR femur LT 2V* [facility] [address] [place] [address] XRay Report Signed Patient: Jeannette Porter MR#: [id number] 4 : 1945 Acct:[id number] Age/Sex: 79 / F ADM Date: 08/17/24 Loc: [facility] Room: Type: REG CLI Attending Dr: Demarcus Barahona II, MD Copies to: Demarcus Barahona MD Ordering Provider: Demarcus Barahona MD Date of Service: 08/17/24 XR/XR femur LT 2V*: M17.12 - Unilateral primary osteoarthritis, left knee ([id number]) XR/XR tibia fibula LT 2V*: M17.12 - [...] Nolvia Fink M.D.08/17/2024 3:56 PM Dictation Location: [place] [address] Transcribed By: [facility] 08/17/24 155 Dictated By: Nolvia Fink MD 08/17/24 1553 Signed By: 08/17/24 155 Normal [facility] Anisocytosis LM Ql (Bld)Orde red By: Demarcus Barahona on 08-11-2024 Anisocytosis Ql (Bld) Anisocytosis [Pres ence] in Blood by Light microscopy [facility] Appearance of UrineOrdered B y: Demarcus Barahona on 08-11-2024 Appearance (U) Urine appearance Clear [facility] Bacteria [Presence] in Urine by AutomatedOrdered By: Demarcus Barahona on 08-11-2024 Bacteria Auto Ql (U) Bacteria [Presence] in Urine by Automated High None Seen [facility] Basic Metabolic Panelon 07-29 Anion gap [Moles/Vol] 12.5 mmol/L Normal 6.0-15.0 Th e [facility] Comment on above: Performed By: #### S CAN CBC, BMP #### [place] [address] [place] #### FRUC #### [facility] , Calcium [Mass/Vol] 10.7 mg/dL High 8.6-10.3 [facility] Comment on above: Result Comment: PERF ORMED BY: [place] [address] PATHOLOGIST DELINQUENT TAX COLLECTOR ASSISTANT SERA BAIRD M.D. Performed By: #### S CAN CBC, BMP #### [address] #### FRUC #### [facility] , Chloride [Moles/Vol] 105 mmol/L Normal 98-107 [facility] Comment on above: Performed By: #### S CAN CBC, BMP #### [place] [address] [place] #### FRUC #### [facility] , CO2 [Moles/Vol] 25.0 mmol/L Normal 21.0-31.0 [facility] Comment on above: Performed By: #### S CAN CBC, BMP #### [place] [address] [place] #### FRUC #### [facility] , Creatinine [Mass/Vol] 0.65 mg/dL Normal 0.60-1.20 [facility] Comment on above: Performed By: #### S CAN CBC, BMP #### [place] [address] [place] #### FRUC #### [facility] , GFR/1.73 sq M.predicted MDRD (S/P/Bld) [Vol rate/Area] mL/min/{1.73_m2} Normal [facility] Comment on above: Performed By: #### S CAN CBC, BMP #### [place] [address] [place] #### FRUC #### [facility] , Glucose [Mass/Vol] 91 mg/dL Normal 70-100 [facility] Comment on above: Result Comment: [place] Glucose Reference Range is dependent on time and content of last meal. Glucose of more than 200 mg/dL in a nonstressed, ambulatory subject supports the diagnosis of Diabetes Mellitus. ADA recommended reference range Performed By: #### S CAN CBC, BMP #### [place] [address] [place] #### FRUC #### [facility] , Potassium [Moles/Vol] 4.5 mmol/L Normal 3.5-5.1 [facility] Comment on above: Performed By: #### S CAN CBC, BMP #### [place] [address] [place] #### FRUC #### [facility] , Sodium [Moles/Vol] 138 mmol/L Normal 136-145 [facility] Comment on above: Performed By: #### S CAN CBC, BMP #### [facility] [address] [place] [address] [place] #### FRUC #### [facility] , Urea nitrogen [Mass/Vol] 19 mg/dL Normal 7-25 [facility] Comment on above: Performed By: #### S CAN CBC, BMP #### [place] [address] [place] #### FRUC #### [facility] , Basophils Auto (Bld) [#/Vol] Ordered By: Demarcus Barahona on 08-11-2024 Basophils (Bld) [#/Vol] Automated basophil count 0.0-0.2 [facility] Basophils/100 WBC Auto (Bld) Ordered By: Demarcus Barahona on 08-11-2024 Basophils/100 WBC (Bld) Automated basophil % . [facility] Bilirubin Test strip Ql (U)O rdered By: Demarcus Barahona on 08-11-2024 Bilirubin Ql (U) Bilirubin.total [Pre sence] in Urine by Test strip Negative [facility] Calcium [Mass/volume] in Ser um or PlasmaOrdered By: Demarcus Barahona on 08-11-2024 Calcium [Mass/Vol] Calcium [Mass/volume ] in Serum or Plasma High 8.6-10.3 [facility] Carbon dioxide, total [Moles /volume] in Serum or PlasmaOrdered By: Demarcus Barahona on 08-11-2024 CO2 [Moles/Vol] Carbon dioxide, tota l [Moles/volume] in Serum or Plasma 21.0-31.0 [facility] Chloride [Moles/volume] in S kee or PlasmaOrdered By: Demarcus Barahona on 08-11-2024 Chloride [Moles/Vol] Chloride [Moles/vol ume] in Serum or Plasma 98-107 [facility] Color Auto (U)Ordered By: Reva Barahona on 08-11-2024 Color (U) Color of Urine by Auto Yellow [facility] Creatinine [Mass/volume] in Serum or PlasmaOrdered By: Demarcus Barahona on 08-11-2024 Creatinine [Mass/Vol] Creatinine [Mass/v olume] in Serum or Plasma 0.60-1.20 [facility] Dipstick and Microscopicon 0 08-11-2024 Appearance (U) Clear Normal Clear [facility] Comment on above: Order Comment: Name Collection Type:: Clean-Voided Midstream Performed By: #### C UU, ADDONUAPLUS ####[facility] Bacteria,Urine 1+ High None Seen [facility] Comment on above: Order Comment: Name Collection Type:: Clean-Voided Midstream Performed By: #### C UU, ADDONUAPLUS ####[facility] Bilirubin,Urine Negative Normal Negative [facility] Comment on above: Order Comment: Name Collection Type:: Clean-Voided Midstream Performed By: #### C UU, ADDONUAPLUS ####[place] [id number] [facility] Color (U) Light-Yellow Normal Yellow [facility] Comment on above: Order Comment: Name Collection Type:: Clean-Voided Midstream Performed By: #### C UU, ADDONUAPLUS ####[address] [address] [facility] Glucose Ql (U) Normal Normal Normal [facility] Comment on above: Order Comment: Name Collection Type:: Clean-Voided Midstream Performed By: #### C UU, ADDONUAPLUS ####[address] [address] [place] Hyaline Casts,Urine 0-8 Normal 0-8 [facility] Comment on above: Order Comment: Name Collection Type:: Clean-Voided Midstream Performed By: #### C UU, ADDONUAPLUS ####[place] [id number] [facility] Ketones Ql (U) Negative Normal Negative [facility] Comment on above: Order Comment: Name Collection Type:: Clean-Voided Midstream Performed By: #### C UU, ADDONUAPLUS ####[address] [address] [facility] Leukocyte esterase Test strip Ql (U) 3+ High Negative [facility] Comment on above: Order Comment: Name Collection Type:: Clean-Voided Midstream Performed By: #### C UU, ADDONUAPLUS ####[place] [id number] [facility] Mucus,Urine Rare Normal [facility] Comment on above: Order Comment: Name Collection Type:: Clean-Voided Midstream Result Comment: PERF ORMED BY: [facility] [address] [place] [id number] PATHOLOGIST DELINQUENT TAX COLLECTOR ASSISTANT SERA BAIRD M.D. Performed By: #### C UU, ADDONUAPLUS ####[place] [id number] [facility] Nitrite,Urine Positive High Negative [facility] Comment on above: Order Comment: Name Collection Type:: Clean-Voided Midstream Performed By: #### C UU, ADDONUAPLUS ####[place] [id number] [facility] Occult Blood,Urine Negative Normal Negative [facility] Comment on above: Order Comment: Name Collection Type:: Clean-Voided Midstream Result Comment: PERF ORMED BY: [facility] [address] [place] [address] PATHOLOGIST DELINQUENT TAX COLLECTOR ASSISTANT SERA BAIRD M.D. Performed By: #### C UU, ADDONUAPLUS ####[place] [id number] [facility] pH (U) 6.0 [pH] Normal 5.0-9.0 [facility] Comment on above: Order Comment: Name Collection Type:: Clean-Voided Midstream Performed By: #### C UU, ADDONUAPLUS ####[place] [id number] [facility] Protein,Urine Negative Normal Negative [facility] Comment on above: Order Comment: Name Collection Type:: Clean-Voided Midstream Performed By: #### C UU, ADDONUAPLUS ####[address] RBC,Urine 1-2 Normal 0-4 [facility] Comment on above: Order Comment: Name Collection Type:: Clean-Voided Midstream Performed By: #### C UU, ADDONUAPLUS ####[place] [id number] [facility] Specificy [place],Urine 1.013 Normal 1.001-1.03 0 [facility] Comment on above: Order Comment: Name Collection Type:: Clean-Voided Midstream Performed By: #### C UU, ADDONUAPLUS ####[place] [id number] [facility] Squamous Epithelial Cell,Urine 1-2 Normal 0-2 [facility] Comment on above: Order Comment: Name Collection Type:: Clean-Voided Midstream Performed By: #### C UU, ADDONUAPLUS ####[facility] [address] Urobilinogen,Urine Normal Normal Normal [facility] Comment on above: Order Comment: Name Collection Type:: Clean-Voided Midstream Performed By: #### C UU, ADDONUAPLUS ####[facility] WBC [place], Urine Occasional High None Seen [facility] Comment on above: Order Comment: Name Collection Type:: Clean-Voided Midstream Performed By: #### C UU, ADDONUAPLUS ####[place] [address] WBC,Urine 10-19 High 0-4 [facility] Comment on above: Order Comment: Name Collection Type:: Clean-Voided Midstream Performed By: #### C UU, ADDONUAPLUS ####[address] Eosinophils Auto (Bld) [#/Vo l]Ordered By: Demarcus Barahona on 08-11-2024 Eosinophils (Bld) [#/Vol] Automated eosinophil count 0.0-0.45 [facility] Eosinophils/100 WBC Auto (Bl d)Ordered By: Demarcus Barahona on 08-11-2024 Eosinophils/100 WBC (Bld) Automated eosinophil % . [facility] Epithelial cells.squamous [# /area] in Urine sediment by Automated countOrdered By: Demarcus Barahona on 08-11-2024 Epithelial cells.squamous Auto (Urine sed) [#/Area] Epithelial cells.squamous [#/area] in Urine sediment by Automated count 0-2 [facility] Erythrocyte distribution wid th Auto (RBC) [Ratio]Ordered By: Demarcus Barahona on 08-11-2024 Erythrocyte distribution width (RBC) [Ratio] Erythrocyte distribution width [Ratio] by Automated count 11.9-15.3 [facility] Erythrocyte morphology findi ng [Identifier] in BloodOrdered By: Demarcus Barahona on 08-11-2024 RBC morphology finding Nom (Bld) RBC morphology [facility] Erythrocytes [#/area] in Uri ne sediment by Automated countOrdered By: Demarcus Barahona on 08-11-2024 RBC Auto (Urine sed) [#/Area] Erythrocytes [#/area] in Urine sediment by Automated count 0-4 [facility] Fructosamineon 08-11-2024 Fructosamine 230 umol/L Normal 0-285 [facility] Comment on above: Result Comment: Publ ished reference interval for apparently healthy subjects between age 20 and 60 is 205 - 285 umol/L and in a poorly controlled diabetic population is 228 - 563 umol/L with a mean of 396 umol/L. Performed at: [facility] [address] [place], [place] [id number] New Vehicle Sales Consultant: Hollis Sanchez PhD, Phone: [phone] PERFORMED BY: [facility] [address] [place] [address] PATHOLOGIST DELINQUENT TAX COLLECTOR ASSISTANT SERA BAIRD M.D. Performed By: #### S CAN CBC, BMP ####[facility] Lmh[address]#### FRUC ####[facility] , Fructosamine [Moles/volume] in Serum or PlasmaOrdered By: Demarcus Barahona on 08-11-2024 Fructosamine [Moles/Vol] Fructosamine [Moles/volume] in Serum or Plasma 0-285 [facility] Comment on above: Published reference interval for apparently healthysubjects between age 20 and 60 is 205 - 285 umol/L and in apoorly controlled diabetic population is 228 - 563 umol/Lwith a mean of 396 umol/L.Performed at: [facility] [id number] [place], [place] [id number] Director: Hollis Sanchez PhD, Phone: [phone] Glucose [Mass/volume] in Ser um or PlasmaOrdered By: Demarcus Barahona on 08-11-2024 Glucose [Mass/Vol] Glucose [Mass/volume ] in Serum or Plasma 70-100 [facility] Comment on above: ADA recommended refe [...] [Mass/volume] in Urine by Test strip Normal [facility] Hematocrit Auto (Bld) [Volum e fraction]Ordered By: Demarcus Barahona on 08-11-2024 Hematocrit (Bld) [Volume fraction] Hematocrit [Volume Fraction] of Blood by Automated count 34.0-46.4 [facility] Hemoglobin Test strip Ql (U) Ordered By: Demarcus Barahona on 08-11-2024 Hemoglobin Ql (U) Hemoglobin [Presence ] in Urine by Test strip Negative [facility] Hemoglobin [Mass/volume] in BloodOrdered By: Demarcus Barahona on 08-11-2024 Hemoglobin (Bld) [Mass/Vol] Hemoglobin [Mass/volume] in Blood 11.8-15.4 [facility] Hyaline casts [#/area] in Ur ine sediment by Automated countOrdered By: Demarcus Barahona on 08-11-2024 Hyaline casts Auto (Urine sed) [#/Area] Hyaline casts [#/area] in Urine sediment by Automated count 0-8 [facility] Ketones Test strip Ql (U)Ord ered By: Demarcus Barhaona on 08-11-2024 Ketones Ql (U) Ketones [Presence] i n Urine by Test strip Negative [facility] Leukocyte clumps [Presence] in Urine by AutomatedOrdered By: Demarcus Barahona on 08-11-2024 Leukocyte clumps Auto Ql (U) Leukocyte clumps [Presence] in Urine by Automated High None Seen [facility] Leukocyte esterase [Presence ] in Urine by Test stripOrdered By: Demarcus Barahona on 08-11-2024 Leukocyte esterase Test strip Ql (U) Leukocyte esterase [Presence] in Urine by Test strip High Negative [facility] Leukocytes [#/area] in Urine sediment by Automated countOrdered By: Demarcus Barahona on 08-11-2024 WBC Auto (Urine sed) [#/Area] Leukocytes [#/area] in Urine sediment by Automated count High 0-4 [facility] Leukocytes [#/volume] correc benigno for nucleated erythrocytes in Blood by Automated counOrdered By: Demarcus Barahona on 08-11-2024 WBC corrected for nucl RBC Auto (Bld) [#/Vol] Leukocytes [#/volume] corrected for nucleated erythrocytes in Blood by Automated coun 3.8-11.6 [facility] Lymphocytes Auto (Bld) [#/Vo l]Ordered By: Demarcus Barahona on 08-11-2024 Lymphocytes (Bld) [#/Vol] Lymphocytes [#/volume] in Blood by Automated count 1.00-4.8 [facility] Lymphocytes/100 WBC Auto (Bl d)Ordered By: Demarcus Barahona on 08-11-2024 Lymphocytes/100 WBC (Bld) Lymphocytes/100 leukocytes in Blood by Automated count . [facility] MCH Auto (RBC) [Entitic mass ]Ordered By: Demarcus Barahona on 08-11-2024 MCH (RBC) [Entitic mass] MCH [Entitic mass] by Automated count 24.7-34.3 [facility] MCHC Auto (RBC) [Mass/Vol]Or dered By: Demarcus Barahona on 08-11-2024 MCHC (RBC) [Mass/Vol] MCHC [Mass/volume] by Automated count 32.0-35.0 [facility] MCV Auto (RBC) [Entitic vol] Ordered By: Demarcus Barahona on 08-11-2024 MCV (RBC) [Entitic vol] MCV [Entitic volume] by Automated count 80-100 [facility] Microcytes LM Ql (Bld)Ordere d By: Demarcus Barahona on 08-11-2024 Microcytes Ql (Bld) Microcytes [Presence ] in Blood by Light microscopy [facility] Monocytes Auto (Bld) [#/Vol] Ordered By: Demarcus Barahona on 08-11-2024 Monocytes (Bld) [#/Vol] Automated blood monocyte count 0.0-0.8 [facility] Monocytes/100 WBC Auto (Bld) Ordered By: Demarcus Barahona on 08-11-2024 Monocytes/100 WBC (Bld) Automated monocyte % . [facility] Mucus [Presence] in Urine by AutomatedOrdered By: Demarcus Barahona on 08-11-2024 Mucus Auto Ql (U) Mucus [Presence] in Urine by Automated [facility] Neutrophils Auto (Bld) [#/Vo l]Ordered By: Demarcus Barahona on 08-11-2024 Neutrophils (Bld) [#/Vol] Neutrophils [#/volume] in Blood by Automated count 1.8-7.7 [facility] Neutrophils/100 WBC Auto (Bl d)Ordered By: Demarcus Barahona on 08-11-2024 Neutrophils/100 WBC (Bld) Automated neutrophil % . [facility] Nitrite Test strip Ql (U)Ord ered By: Demarcus Barahona on 08-11-2024 Nitrite Ql (U) Nitrite [Presence] i n Urine by Test strip High Negative [facility] No Panel InformationOrdered By: Demarcus Barahona on 08-11-2024 Estimated GFR (CKD-EPI) > 60.0 mL/Min [facility] Creatinine Clearance (Chem N/A [facility] Nucleated erythrocytes [Pres ence] in Blood by Automated countOrdered By: Demarcus Barahona on 08-11-2024 Nucleated RBC Auto Ql (Bld) Nucleated erythrocytes [Presence] in Blood by Automated count 0-0.5 [facility] Platelet adequacy [Presence] in Blood by Light microscopyOrdered By: Demarcus Barahona on 08-11-2024 Platelets LM Ql (Bld) Platelet adequacy [Presence] in Blood by Light microscopy Normal [facility] Platelet mean volume Auto (B ld) [Entitic vol]Ordered By: Demarcus Barahona on 08-11-2024 Platelet mean volume (Bld) [Entitic vol] Platelet mean volume [Entitic volume] in Blood by Automated count 6.3-10.7 [facility] Platelet morphology finding [Identifier] in BloodOrdered By: Demarcus Barahona on 08-11-2024 Platelet morphology finding Nom (Bld) Platelet morphology finding [Identifier] in Blood Normal [facility] Platelets Auto (Bld) [#/Vol] Ordered By: Demarcus Barahona on 08-11-2024 Platelets (Bld) [#/Vol] Platelets [#/volume] in Blood by Automated count 150-450 [facility] Polychromasia [Presence] in Blood by Light microscopyOrdered By: Demarcus Barahona on 08-11-2024 Polychromasia LM Ql (Bld) Polychromasia [Presence] in Blood by Light microscopy [facility] Potassium [Moles/volume] in Serum or PlasmaOrdered By: Demarcus Barahona on 08-11-2024 Potassium [Moles/Vol] Potassium [Moles/v olume] in Serum or Plasma 3.5-5.1 [facility] Protein Test strip (U) [Mass /Vol]Ordered By: Demarcus Barahona on 08-11-2024 Protein (U) [Mass/Vol] Protein [Mass/vol ume] in Urine by Test strip Negative [facility] RBC Auto (Bld) [#/Vol]Ordere d By: Demarcus Barahona on 08-11-2024 RBC (Bld) [#/Vol] Erythrocytes [#/volu me] in Blood by Automated count 3.60-5.00 [facility] Scan and CBCon 08-11-2024 Anisocytosis Ql (Bld) Moderate Normal [facility] Comment on above: Performed By: #### S CAN CBC, BMP ####[place] [address] [place]#### FRUC ####[facility] , Basophils (Bld) [#/Vol] 0.1 10*3/uL Normal 0.0-0.2 [facility] Comment on above: Performed By: #### S CAN CBC, BMP ####[place] [address] [place]#### FRUC ####[facility] , Basophils/100 WBC (Bld) 1.4 % Normal . [facility] Comment on above: Performed By: #### S CAN CBC, BMP ####[place] [address] [place]#### FRUC ####[facility] , Eosinophils (Bld) [#/Vol] 0.2 10*3/uL Normal 0.0-0.45 [facility] Comment on above: Performed By: #### S CAN CBC, BMP ####[place] [address] [place]#### FRUC ####[facility] , Eosinophils/100 WBC (Bld) 4.1 % Normal . [facility] Comment on above: Performed By: #### S CAN CBC, BMP ####[address]#### FRUC ####[facility] , Erythrocyte distribution width (RBC) [Ratio] 14.6 % Normal 11.9-15.3 [facility] Comment on above: Performed By: #### S CAN CBC, BMP ####[address]#### FRUC ####[facility] , Hematocrit (Bld) [Volume fraction] 40.3 % Normal 34.0-46.4 [facility] Comment on above: Performed By: #### S CAN CBC, BMP ####[address]#### FRUC ####[facility] , Hemoglobin (Bld) [Mass/Vol] 13.9 g/dL Normal 11.8-15.4 [facility] Comment on above: Performed By: #### S CAN CBC, BMP ####[address]#### FRUC ####[facility] , Lymphocytes (Bld) [#/Vol] 1.4 10*3/uL Normal 1.00-4.8 [facility] Comment on above: Performed By: #### S CAN CBC, BMP ####[place] [address] [place]#### FRUC ####[facility] , Lymphocytes/100 WBC (Bld) 32.4 % Normal . [facility] Comment on above: Performed By: #### S CAN CBC, BMP ####[address] [place] [address] [place]#### FRUC ####[facility] , MCH (RBC) [Entitic mass] 30.5 pg Normal 24.7-34.3 [facility] Comment on above: Performed By: #### S CAN CBC, BMP ####[address]#### FRUC ####[facility] , MCV (RBC) [Entitic vol] 88.4 fL Normal 80-100 [facility] Comment on above: Performed By: #### S CAN CBC, BMP ####[address]#### FRUC ####[facility] , Mean Corpuscular HGB Conc 34.6 g/dL Normal 32.0-35.0 [facility] Comment on above: Performed By: #### S CAN CBC, BMP ####[address]#### FRUC ####[facility] , Microcytosis Moderate Normal [facility] Comment on above: Performed By: #### S CAN CBC, BMP ####[address]#### FRUC ####[facility] , Monocytes (Bld) [#/Vol] 0.4 10*3/uL Normal 0.0-0.8 [facility] Comment on above: Performed By: #### S CAN CBC, BMP ####[place] [address] [place]#### FRUC ####[facility] , Monocytes/100 WBC (Bld) 8.3 % Normal . [facility] Comment on above: Performed By: #### S CAN CBC, BMP ####[place] [address] [place]#### FRUC ####[facility] , Neutrophils (Bld) [#/Vol] 2.3 10*3/uL Normal 1.8-7.7 [facility] Comment on above: Performed By: #### S CAN CBC, BMP ####[address]#### FRUC ####[facility] , Neutrophils/100 WBC (Bld) 53.8 % Normal . [facility] Comment on above: Performed By: #### S CAN CBC, BMP ####[place] [address] [place]#### FRUC ####[facility] , NRBC% 0.1 /100{WBC} Normal 0-0.5 [facility] Comment on above: Performed By: #### S CAN CBC, BMP ####[place] [address] [place]#### FRUC ####[facility] , Platelet Estimate Normal Normal Normal [facility] Comment on above: Performed By: #### S CAN CBC, BMP ####[place] [address] [place]#### FRUC ####[facility] , Platelet mean volume (Bld) [Entitic vol] 7.9 fL Normal 6.3-10.7 [facility] Comment on above: Performed By: #### S CAN CBC, BMP ####[place] [address] [place]#### FRUC ####[facility] , Platelet Morphology Normal Normal Normal [facility] Comment on above: Result Comment: PERF ORMED BY: [address] [place] [address] PATHOLOGIST DELINQUENT TAX COLLECTOR ASSISTANT SERA BAIRD M.D. Performed By: #### S CAN CBC, BMP ####[address] [place] [address] [place]#### FRUC ####[facility] , Platelets (Bld) [#/Vol] 449 10*3/uL Normal 150-450 [facility] Comment on above: Performed By: #### S CAN CBC, BMP ####[address]#### FRUC ####[facility] , Polychromasia Slight Normal [facility] Comment on above: Performed By: #### S CAN CBC, BMP ####[place] [address] [place]#### FRUC ####[facility] , RBC (Bld) [#/Vol] 4.56 10*6/uL Normal 3.60-5.00 [facility] Comment on above: Performed By: #### S CAN CBC, BMP ####[address]#### FRUC ####[facility] , WBC (Bld) [#/Vol] 4.3 10*3/uL Normal 3.8-11.6 [facility] Comment on above: Performed By: #### S CAN CBC, BMP ####[address]#### FRUC ####[facility] , Serum or plasma anion gap de terminationOrdered By: Demarcus Barahona on 08-11-2024 Anion gap [Moles/Vol] Serum or plasma an ion gap determination 6.0-15.0 [facility] Sodium [Moles/volume] in Ser um or PlasmaOrdered By: Demarcus Barahona on 08-11-2024 Sodium [Moles/Vol] Sodium [Moles/volume ] in Serum or Plasma 136-145 [facility] Specific gravity Test strip (U) [Rel density]Ordered By: Demarcus Barahona on 08-11-2024 Specific gravity (U) [Rel density] Specific gravity of Urine by Test strip 1.001-1.03 0 [facility] Urea nitrogen [Mass/volume] in Serum or PlasmaOrdered By: Demarcus Barahona on 08-11-2024 Urea nitrogen [Mass/Vol] Urea nitrogen [Mass/volume] in Serum or Plasma 12-22 [facility] Urine Cultureon 08-11-2024 Bacteria identified Cx Nom (U) ORGANISM: Escherichia coli (O:ESCCOL) [place] Count >100,000 Aerobic RODRIGO Charge (NMIC56) SUSCEPTIBILITY [...] RESISTANT TO ALL B-LACTAM DRUGS. PERFORMED BY: [facility] [address] [place] [address] PATHOLOGIST DELINQUENT TAX COLLECTOR ASSISTANT SERA BAIRD M.D. Normal [facility] Comment on above: Performed By: #### C ELSA GODINEZ ####[facility] [id number] [place] [address] [facility] Urine cultureOrdered By: Gary Barahona on 08-11-2024 Bacteria identified Cx Nom (U) Escherichia coli Abnormal [facility] Urobilinogen Test strip (U) [Mass/Vol]Ordered By: Demarcus Barahona on 08-11-2024 Urobilinogen (U) [Mass/Vol] Urobilinogen [Mass/volume] in Urine by Test strip Normal [facility] WBC Auto (Bld) [#/Vol]Ordere d By: Demarcus Barahona on 08-11-2024 WBC (Bld) [#/Vol] Leukocytes [#/volume ] in Blood by Automated count 3.8-11.6 [facility] pH Test strip (U)Ordered By: Demarcus Barahona on 08-11-2024 pH (U) pH of Urine by Test strip 5.0-9.0 [facility] Office Visiton 07-03-2024 Follow-up visit [id number] Jeannette Porter 1945 F Date Provider Department Center 07/03/2024 [facility] Family History Problem Relation Age of Onset Other Father Family Status - Relation Status Age at Father Level of Service:96188 ME OFFICE/OUTPATIENT ESTABLISHED MOD MDM 30 MIN Normal [facility] BASIC METABOLIC PANELon 06-01 BUN/CREATININE RATIO SEE NOTE: Normal 6-22 [facility] Comment on above: Order Comment: FASTI NG:NO FASTING: NO Result Comment: Not Reported: BUN and Creatinine are within reference range. Performed By: #### 1 0165, 1759 #### [facility] [address], [address] [place] [address] [employer]fuels Operations Manager: Anthony Batista MD Calcium [Mass/Vol] 10.2 mg/dL Normal 8.6-10.4 [facility] Comment on above: Order Comment: FASTI NG:NO FASTING: NO Performed By: #### 1 0165, 1759 #### [facility] [address], [address] [place] [address] [employer]fuels Operations Manager: Anthony Batista MD Chloride [Moles/Vol] 105 mmol/L Normal 98-110 [facility] Comment on above: Order Comment: FASTI NG:NO FASTING: NO Performed By: #### 1 0165, 1759 #### [facility] [address], [address] [place] [address] [employer]fuels Operations Manager: Anthony Batista MD CO2 [Moles/Vol] 24 mmol/L Normal 20-32 [facility] Comment on above: Order Comment: FASTI NG:NO FASTING: NO Performed By: #### 1 0165, 1759 #### [facility] [place] [address] [employer]fu[employer] Operations Manager: Anthony Batista MD Creatinine [Mass/Vol] 0.69 mg/dL Normal 0.60-1.[address] [facility] Comment on above: Order Comment: FASTI NG:NO FASTING: NO Performed By: #### 1 0165, 1759 #### [facility] [place] [address] [employer]fu[employer] Operations Manager: Anthony Batista MD GFR/1.73 sq M.predicted among non-blacks MDRD (S/P/Bld) [Vol rate/Area] 89 mL/min/{1.73_m2} Normal > OR = 60 [facility] Comment on above: Order Comment: FASTI NG:NO FASTING: NO Performed By: #### 1 0165, 1759 #### [facility] [place] [address] [employer]fu[employer] Operations Manager: Anthony Batista MD Glucose [Mass/Vol] 97 mg/dL Normal 65-139 [facility] Comment on above: Order Comment: FASTI NG:NO FASTING: NO Result Comment: Non-fasting reference interval Performed By: #### 1 0165, 1759 #### [facility] [place] [address] [employer]fuels Operations Manager: Anthony Batista MD Potassium [Moles/Vol] 4.5 mmol/L Normal 3.5-5.[address] [facility] Comment on above: Order Comment: FASTI NG:NO FASTING: NO Performed By: #### 1 0165, 1759 #### [facility] [place] [address] [employer]fu[employer] Operations Manager: Anthony Batista MD Sodium [Moles/Vol] 137 mmol/L Normal 135-146 [facility] Comment on above: Order Comment: FASTI NG:NO FASTING: NO Performed By: #### 1 0165, 1759 #### [facility] [place] [address] [employer]fuels Operations Manager: Anthony Batista MD Urea nitrogen [Mass/Vol] 23 mg/dL Normal 7-25 [facility] Comment on above: Order Comment: FASTI NG:NO FASTING: NO Performed By: #### 1 0165, 175 #### [facility] [place] [address] [employer]fu[employer] Operations Manager: Anthony Batista MD CBC (H/H, RBC, INDICES, WBC, PLT)on 06-21-2024 Erythrocyte distribution width (RBC) [Ratio] 13.3 % Normal 11.0-15.0 [facility] Comment on above: Performed By: #### 1 0165, 1759 #### [facility] [place] [address] [employer] Operations Manager: Anthony Batista MD Hematocrit (Bld) [Volume fraction] 41.7 % Normal 35.0-45.0 [facility] Comment on above: Performed By: #### 1 0165, 1759 #### [facility] [place] [address] [employer]fuels Operations Manager: Anthony Batista MD Hemoglobin (Bld) [Mass/Vol] 13.7 g/dL Normal 11.7-15.5 [facility] Comment on above: Performed By: #### 1 0165, 1759 #### [facility] [place] [address] [employer] Operations Manager: Anthony Batista MD MCH (RBC) [Entitic mass] 29.5 pg Normal 27.0-33.0 [facility] Comment on above: Performed By: #### 1 0165, 1759 #### [facility] [place] [address] [employer]fu[employer] Operations Manager: Anthony Batista MD MCHC (RBC) [Mass/Vol] 32.9 [...] 1 0165, 175 #### [facility] [place] [address] [employer]fuels Operations Manager: Anthony Batista MD MCV (RBC) [Entitic vol] 89.9 fL Normal 80.0-100.0 [facility] Comment on above: Performed By: #### 1 016, 175 #### [facility] [place] [address] [employer]fu[employer] Operations Manager: Anthony Batista MD Platelet mean volume (Bld) [Entitic vol] 10.4 fL Normal 7.5-12.5 [facility] Comment on above: Performed By: #### 1 016, 175 #### [facility] [place] [address] [employer]fuels Operations Manager: Anthony Batista MD Platelets (Bld) [#/Vol] 453 10*3/uL High 140-400 [facility] Comment on above: Performed By: #### 1 016, 175 #### [facility] [place] [address] [employer]fu[employer] Operations Manager: Anthony Batista MD RBC (Bld) [#/Vol] 4.64 10*6/uL Normal 3.80-5.10 [facility] Comment on above: Performed By: #### 1 016, 175 #### [facility] [place] [id number] Biofuels Operations Manager: Anthony Batista MD WBC (Bld) [#/Vol] 6.2 10*3/uL Normal 3.8-10.8 [facility] Comment on above: Performed By: #### 1 0165, 1759 #### [facility] [address], [address] [place] [address] Biofuels Operations Manager: Anthony Batista MD A1C with Estimated Average Carmen luon 06-08-2024 Glucose [Mass/Vol] 105 mg/dL Normal [facility] Comment on above: Result Comment: PERF ORMED BY: [place] [address] PATHOLOGIST DELINQUENT TAX COLLECTOR ASSISTANT SERA BAIRD M.D. Performed By: #### N ICOTINE #### [facility] , #### ALB, HGB, [id number], CUMRSA, A1C WT eA #### [facility] [address] [place] [address] HbA1c (Bld) [Mass fraction] 5.3 % Normal 4.3-5.6 [facility] Comment on above: Result Comment: Incr eased risk for diabetes: 5.7 - 6.4 diabetes: >6.4 glycemic control for adults with diabetes: <7.0 Performed By: #### N ICOTINE #### [facility] , #### ALB, HGB, [id number], CUMRSA, A1C WTH eA #### [facility] [address] [place] [address] [place] Albumin Levelon 06-08-2024 Albumin [Mass/Vol] 4.2 g/dL Normal 3.5-5.7 [facility] Comment on above: Performed By: #### N ICOTINE #### [facility] , #### ALB, HGB, [id number], CUMRSA, A1C WTH eA #### [facility] [address] [place] [address] [place] Albumin [Mass/volume] in Ser um or Plasma by Bromocresol green (BCG) dye binding methoOrdered By: Demarcus Barahona on 06-08-2024 Albumin BCG dye [Mass/Vol] Albumin [Mass/volume] in Serum or Plasma by Bromocresol green (BCG) dye binding metho 3.5-5.7 [facility] Blood estimated average gluc ose determination by estimation from glycated hemoglobinOrdered By: Demarcus Barahona on 06-08-2024 Average glucose Estimated from glycated hemoglobin (Bld) [Mass/Vol] Glucose mean value [Mass/volume] in Blood Estimated from glycated hemoglobin [facility] Cotinine [Mass/volume] in Se rum or PlasmaOrdered By: Demarcus Barahona on 06-08-2024 Cotinine [Mass/Vol] Cotinine [Mass/volum e] in Serum or Plasma . [facility] Comment on above: This test was develo ped and its performance characteristicsdetermined by [employer]. It has not been cleared orapproved by the Food and Drug Administration.Cotinine levels greater than 20.0 are consistent with theuse of tobacco or tobacco cessation products.Performed at: [facility] [id number] Director: Leilani Hilliard MD, Phone: [phone] Hemoglobinon 06-08-2024 Hemoglobin (Bld) [Mass/Vol] 13.4 g/dL Normal 11.8-15.4 [facility] Comment on above: Result Comment: PERF ORMED BY: [place] [address] PATHOLOGIST DELINQUENT TAX COLLECTOR ASSISTANT SERA BAIRD M.D. Performed By: #### N ICOTINE #### [facility] , #### ALB, HGB, [id number], CUMRSA, A1C WT eA #### [address] Hemoglobin A1c/Hemoglobin.to dilma in BloodOrdered By: Demarcus Barahona on 06-08-2024 HbA1c (Bld) [Mass fraction] Hemoglobin A1c percentage 4.3-5.6 [facility] Comment on above: Increased risk for d iabetes: 5.7 - 6.4diabetes: >6.4glycemic control for adults with diabetes: <7.0 Hemoglobin [Mass/volume] in BloodOrdered By: Demarcus Barahona on 06-08-2024 Hemoglobin (Bld) [Mass/Vol] Hemoglobin [Mass/volume] in Blood 11.8-15.4 [facility] MRSA Cultureon 06-08-2024 MRSA Culture MRSA Culture Results No MRSA Isolated 2 Days PERFORMED BY: [place] [address] PATHOLOGIST DELINQUENT TAX COLLECTOR ASSISTANT SERA BAIRD M.D. Normal [facility] Comment on above: Performed By: #### N ICOTINE #### [facility] , #### ALB, HGB, [id number], CUMRSA, A1C WTH eA #### [address] Nicotine [Mass/volume] in Se rum or PlasmaOrdered By: Demarcus Barahona on 06-08-2024 Nicotine [Mass/Vol] Nicotine [Mass/volum e] in Serum or Plasma . [facility] Comment on above: This test was develo ped and its performance characteristicsdetermined by [employer]. It has not been cleared orapproved by the Food and Drug Administration.Nicotine levels greater than 2.0 are consistent with theuse of tobacco or tobacco cessation products. Nicotine/Cotinine Bloodon Cotinine, Blood <1.0 Normal . [facility] Comment on above: Result Comment: This test was developed and its performance characteristics determined by [employer]. It has not been cleared or approved by the Food and Drug Administration. Cotinine levels greater than 20.0 are consistent with the use of tobacco or tobacco cessation products. Performed at: [address] [id number] New Vehicle Sales Consultant: Leilani Hilliard MD, Phone: [phone] PERFORMED BY: [place] [address] PATHOLOGIST DELINQUENT TAX COLLECTOR ASSISTANT SERA BAIRD M.D. Performed By: #### N ICOTINE #### [facility] , #### ALB, HGB, [id number], CUMRSA, A1C WTH eA #### [facility] [address] Nicotine, Blood <1.0 Normal . [facility] Comment on above: Result Comment: This test was developed and its performance characteristics determined by [facility]. It has not been cleared or approved by the Food and Drug Administration. Nicotine levels greater than 2.0 are consistent with the use of tobacco or tobacco cessation products. Performed By: #### N ICOTINE #### [facility] , #### ALB, HGB, [id number], CUMRSA, A1C WTH eA #### [address] Vitamin D 25 Hydroxy Totalon 06-08-2024 Vitamin D 25 Hydroxy Total 59.2 ng/mL Normal 30-100 [facility] Comment on above: Result Comment: NALLELY MIN D STATUS 25(OH)VITAMIN D RANGE (ng/mL) Deficient <20 Insufficient 20 to <30 Sufficient 30 to 100 Reference: Ramsey MF,Baldemar NC, Domenic BENITEZ, et al. Evaluation,treatment, and prevention of vitamin D deficiency; an Endocrine Society clinical practice guideline. JCEM. 2010; 96(7):1911-30. PERFORMED BY: [place] [address] PATHOLOGIST DELINQUENT TAX COLLECTOR ASSISTANT SERA BAIRD M.D. Performed By: #### N ICOTINE #### [facility] , #### ALB, HGB, [id number], CUMRSA, A1C WTH eA #### [address] Vitamin D+Metabolites [Mass/ volume] in Serum or PlasmaOrdered By: Demarcus Barahona on 06-08-2024 Vitamin D+Metabolites [Mass/Vol] Vitamin D+Metabolites [Mass/volume] in Serum or Plasma 30-100 [facility] Comment on above: VITAMIN D STATUS [...] Wound methicillin resistant Staphylococcus aureus (MRSA) culture [facility] X-ray reportOrdered By: Buddy Bray on 06-08-2024 Study report [facility] [address] [place] [address] XRay Report Signed Patient: Jeannette Porter MR#: [id number] : 1945 Acct:[id number] Age/Sex: 79 / F ADM Date: 5 Loc: [facility] Room: Type: [facility] Attending Dr: Demarcus Barahona II, MD Copies to: Demarcus Barahona MD~ Ordering Provider: Demarcus Barahona MD Date of Service: 06/08/24 XR/XR pelvis 1-2V: M25.561 - Pain in right knee ([id number]) XR/XR knee BI 4V: M25.561 - Pain [...] of the hips. Moderatespurring left sacral joints. Cjbnofjj-kp-bprdaz there are changes lower lumbar spine. Right knee: Severe lateral compartment degenerative changes. Czmp-kv-phpcvkeq medial compartment degenerative changes. Moderate patellofemoral compartment degenerative changes. Left knee: Severe lateral compartment degenerative changes. Jwom-or-hexlozfi medial compartment degenerative changes. Moderate patellofemoral compartment degenerative changes. XR/XR pelvis 1-2V IMPRESSION: NO ACUTE BONY FINDINGS. TRICOMPARTMENTAL DEGENERATIVE CHANGES OF THE BILATERAL KNEES AND DEGENERATIVE CHANGES OF THE HIPS AND PELVIS. Impression dictated by: Hang Bray M.D.06/08/2024 10:31 AM Dictation Location: [place] [address] Transcribed By: [facility] 06/08/24 1031 Dictated By: Hang Bray MD 06/08/24 1027 Signed By: 06/08/24 1031 [facility] Work Phone: XR knee BI 4Von 06-08-2024 XR knee BI 4V [facility] [address] [place] [address] XRay Report Signed Patient: Jeannette Porter MR#: [id number] : 1945 Acct:[id number] Age/Sex: 79 / F ADM Date: 06/08/24 Loc: [facility] Room: Type: [facility] Attending Dr: Demarcus Barahona II, MD Copies to: Demarcus Barahona MD Ordering Provider: Demarcus Barahona MD Date of Service: 06/08/24 XR/XR pelvis 1-2V: M25.561 - Pain in right knee ([id number]) XR/XR knee BI 4V: M25.561 - Pain [...] the hips. Moderate spurring left sacral joints. Zccjdtni-by-odbwjw there are changes lower lumbar spine. Right knee: Severe lateral compartment degenerative changes. Xynk-oy-oxtqvnrr medial compartment degenerative changes. Moderate patellofemoral compartment degenerative changes. Left knee: Severe lateral compartment degenerative changes. Qrdb-ej-urxzuhnl medial compartment degenerative changes. Moderate patellofemoral compartment degenerative changes. XR/XR pelvis 1-2V IMPRESSION: NO ACUTE BONY FINDINGS. TRICOMPARTMENTAL DEGENERATIVE CHANGES OF THE BILATERAL KNEES AND DEGENERATIVE CHANGES OF THE HIPS AND PELVIS. Impression dictated by: Hang Bray M.D.06/08/2024 10:31 AM Dictation Location: [place] [address] Transcribed By: [facility] 06/08/24 1031 Dictated By: Hang Bray MD 06/08/24 1027 Signed By: 06/08/24 1031 Normal [facility] Ophthalmic OCT panelon 06-06 [facility] Left Eye Images reviewed and comparison made to baseline, Images reviewed. To assess optic nerve function and for use in future follow-up. Reliability: good and adequate. 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 Worsening. [facility] Study observation (narrative) [facility] CHEMISTRYOrdered By: SYSTEM SYSTEM on 07-15-2023 Anion [...] 35.5 s Normal 25.1 - 36.5 second(s) [facility] Comment on above: Interpretive [...] the same coagulation reagent and instrumentation as [facility]. Currently there are no coagulation studies available worldwide for children to 14 days, and no normal ranges. Heparin therapeutic range (represented by Anti-Factor Xa activity of 0.2 - 0.4 U/mL) corresponds to PTT of 56.6 - 109.0 sec. INR Coag (PPP) [Relative time] 1.07 {INR} Invalid Interpretation Code [facility] Comment on above: Interpretive Data: I NR results are specifically intended to assess patients stabilized on long-term Anticoagulation therapy suggested INR s Less Intensive Anticoagulation 2.0 3.0 Conventional Range 3.0 4.5 PT Coag (PPP) [Time] 11.9 s Normal 9.4 - 1 2.5 second(s) [facility] Comment on above: Interpretive [...] the same coagulation reagent and instrumentation as [facility]. Currently there are no coagulation studies [...] Normal 80.0 - 100.0 fL Remisol Heme [place] Absolute 0.5 E9/L Normal 0.2 - 1.0 [...] PM) Normal Negative [facility] UA Auto SS [place].plasma/[place] .RBC (Bld) [Mass ratio] >75 /HPF Invalid [...] [facility] UA Auto SS Urobilinogen Qn (U) [id number] {Starr'U}/dL Normal 0.0 - 1.0 EU/dL [facility] [...] : DR ADARSH MANRIQUE M.D. Admission #: [id number] Family : Order #: [id number] CLICK HERE TO VIEW EXAM RADIOLOGY REPORT [...] mouth cancer at age 71. LOCATION: [facility] BREAST COMPOSITION: Heterogeneously dense,which may [...] M.D. on 08/24/2022 at 12:10 Normal [facility] Vital Signs Date Time Vital Sign Value Performing Clinician Facility 02-22-2025 08:51-0400 Body height 154.9 cm Adarsh Manrique MD Work Phone: [facility] 02-22-2025 08:51-0400 Body mass index (BMI) [Ratio] 31.55 kg/m2 Adarsh Manrique MD Work Phone: [facility] 02-22-2025 08:51-0400 Body weight 75.75 kg Adarsh Manrique MD Work Phone: [facility] 02-22-2025 08:51-0400 Diastolic blood pressure 80 mm[Hg] Adarsh Manrique MD Work Phone: [facility] 02-22-2025 08:51-0400 Heart rate 68 /min Adarsh Manrique MD Work Phone: [facility] 02-22-2025 08:51-0400 SaO2% (BldA) [Mass fraction] 95 % Adarsh Manrique MD Work Phone: [facility] 02-22-2025 08:51-0400 Systolic blood pressure 130 mm[Hg] Adarsh Manrique MD Work Phone: [facility] 11-23-2024 09:45-0400 Body height 154.9 cm Adarsh Manrique MD Work Phone: [facility] 11-23-2024 09:45-0400 Body mass index (BMI) [Ratio] 30.61 kg/m2 Adarsh Manrique MD Work Phone: [facility] 11-23-2024 09:45-0400 Body weight 73.48 kg Adarsh Manrique MD Work Phone: [facility] 11-23-2024 09:45-0400 Diastolic blood pressure 76 mm[Hg] Adarsh Manrique MD Work Phone: [facility] Comment on above: 136 80 11-23-2024 09:45-0400 Heart rate 68 /min Adarsh Manrique MD Work Phone: [facility] 11-23-2024 09:45-0400 SaO2% (BldA) [Mass fraction] 96 % Adarsh Manrique MD Work Phone: [facility] 11-23-2024 09:45-0400 Systolic blood pressure 138 mm[Hg] Adarsh Manrique MD Work Phone: [facility] Comment on above: 136 80 08-31-2024 13:08-0400 Body temperature 97.6 [degF] Adarsh Manrique II Work Phone: [facility] 08-31-2024 13:08-0400 Diastolic blood pressure 72 mm[Hg] Adarsh Manrique II Work Phone: [facility] 08-31-2024 13:08-0400 Heart rate 61 /min Adarsh Manrique II Work Phone: [facility] 08-31-2024 13:08-0400 Respiratory rate 19 /min Adarsh Manrique II Work Phone: [facility] 08-31-2024 13:08-0400 SaO2% (BldA) [Mass fraction] 96 % Adarsh Manrique II Work Phone: [facility] 08-31-2024 13:08-0400 Systolic blood pressure 119 mm[Hg] Adarsh Manrique II Work Phone: [facility] 08-31-2024 06:00-0400 Body weight 83.9 kg Adarsh Manrique II Work Phone: [facility] 08-29-2024 12:30-0400 Inhaled oxygen flow rate 8 L/min Adarsh Manrique II Work Phone: [facility] 08-29-2024 08:32-0400 Body height 152.4 cm Adarsh Manrique II Work Phone: [facility] 07-27-2024 10:08-0500 Body height 154.9 cm Nolvia Hemmer PA Work Phone: [facility] 07-27-2024 10:08-0500 Body mass index (BMI) [Ratio] 30.87 kg/m2 Nolvia Hemmer PA Work Phone: [facility] 07-27-2024 10:08-0500 Body weight 74.12 kg Nolvia Hemmer PA Work Phone: [facility] 07-27-2024 10:08-0500 Diastolic blood pressure 84 mm[Hg] Nolvia Hemmer PA Work Phone: [facility] 07-27-2024 10:08-0500 Heart rate 58 /min Nolvia Hemmer PA Work Phone: [facility] 07-27-2024 10:08-0500 Respiratory rate 16 /min Nolvia Hemmer PA Work Phone: [facility] 07-27-2024 10:08-0500 SaO2% (BldA) [Mass fraction] 97 % Nolvia Hemmer PA Work Phone: [facility] 07-27-2024 10:08-0500 Systolic blood pressure 136 mm[Hg] Nolvia Hemmer PA Work Phone: [facility] 06-20-2024 13:00-0500 Body height 154.9 cm Nolvia Hemmer PA Work Phone: [facility] 06-20-2024 13:00-0500 Body mass index (BMI) [Ratio] 30.76 kg/m2 Nolvia Hemmer PA Work Phone: [facility] 06-20-2024 13:00-0500 Body weight 73.85 kg Nolvia Hemmer PA Work Phone: [facility] 06-20-2024 13:00-0500 Diastolic blood pressure 76 mm[Hg] Nolvia Hemmer PA Work Phone: [facility] 06-20-2024 13:00-0500 Heart rate 63 /min Nolvia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 above may not [...] provider. Document Revised: 08/27/2022 Document Reviewed: 08/27/2022 [employer] Patient Education 2022 [employer]. Follow Up Care 07/23/2023 14:34:48 With:Ronnie JOHNS, ANNA Kaur, URO Address: When: Unknown [facility] 02-20-2024 Hospital Discharge instructions Patient Education 07/20/2023 13:43:33 Post Op Patient Instructions - FT (Custom) (CUSTOM) 07/20/2023 13:16:12 Mkpl-Mpqa-sl Utereroscopy,Lithotripsy, Stone Extraction, Stent Placement (CUSTOM) [facility] [place], [place] Post-operative Instructions for Ureteroscopy, Laser Lithotripsy, [...] stent, if present. AZO can be purchased [id number]-mfrwlxy for burning with urination/urinary pain. This will [...] up with Dr. Trujillo in 6 months [phone] Follow Up Care 07/12/2023 12:56:00 With:Keerthi Trujillo Address:Unknown When: Unknown Comments:Office to call to schedule your follow up in 6 mths. Obtain renal US in 6 wks, office to call with results [facility]02-20-2024 Evaluation + Plan noteExtracted from: Title:EU - L URS, laser lith o, stone extraction, stent exchange Author:Keerthi Trujillo MD Date:07/20/23 Impression and Plan Diagnosis Kidney stones ([id number] N20.0, Discharge, Medical). Ureteral stone ([id number] N20.1, Working, Medical). Diagnosis Kidney stones ([id number] N20.0, Discharge, Medical). Extracted from: Title:Home Basic PRE Author:Home Espinoza sicate ()Pola Date:07/20/23 Plan [place] [employer] (ASA) physical status classification: Class III. Anesthetic Preoperative Plan: Anesthesia General. Diagnostic Tests Pending * Calculi Analysis Urinary 07/20/23 [facility]01-24-2024 Hospital Discharge instructions Patient Education 06/23/2023 [...] include: ?8 oz (237 mL) of milk, gucqpub-rlgoaxoudmsl-ranff milk, and calcium- fortifiedfruit juice. Calcium-fortified means [...] ?Spinach (cooked), rhubarb, beets, sweet potatoes, and [place] chard. ?Peanuts. ?Potato chips, sudanese fries, and baked potatoes with skin on. ?Nuts and nut products. ?Chocolate. If you regularly take a diuretic medicine, make sure to eat at least 1 or 2 servings of fruits or vegetables that are high in potassium each day. These include: ?Avocado. ?Banana. ?[place], prune, carrot, or tomato juice. ?Baked potato. [...] magnesium, fish oil, or vitamin B6. Take xmyu-eag-pnlnnza and prescription medicines only as told by [...] Casseroles. Pizza. Lasagna. Frozen meals. Potato chips. Rw[place]an fries. The items listed above may not [...] provider. Document Revised: 08/27/2022 Document Reviewed: 08/27/2022 [employer] Patient Education 2022 [employer]. Follow Up Care 06/16/2023 11:07:45 With:Ronnie JOHNS, ANNA Kaur, URO Address: When: Unknown Comments:Schedule stone procedure [facility] discharge summary Author Demarcus Barahona [facility] Note Date/Time August 31, 2024 2:[address] [facility] [address] [place] [address] Discharge Summary Signed Patient: Jeannette Porter MR#: [id number] : 1945 Acct:[id number] Age/Sex: 79 / F Adm Date: 5 Loc: 4N Room: 0B2870-[address]: Demarcus Barahona II, MD Copies [...] Plan Discharge Plan Patient Disposition: Home Health [facility] Additional Instructions: Joint Replacement Discharge Instructions Your safety during your recovery process is important to us. Please seek immediate emergency care if you have sudden chest pain or shortness of breath. Additionally, please call our office at [phone] should any of the followingoccur: wound bleeding [...] we discuss this at your post-op appointments. -E-l-f-a-c-e-l- -T-h-i-s- -i-s- -a- -f-r-u-c-a-z----c-d-o-e-t-p-n-a-t-e-d- -r-q-v-s-s-i-n-g- -w-i-t-h- -e-r-h-g-q-u-o-t-i-c- -s-d-p-k-r-h-t-i-e-s- -t-h-a-t- -w-i-l-l- -s-t-a-y- -i-n- -p-l-a-c-e- -u-n-t-i-l- -y-o-u- -a-r-e- -s-e-e-n- -i-n- -t-h-e- -e-w-q-i-c-e- -f-o-r- -y-o-u-r- -2----w-e-e-k- -e-p-u-t----o-p- -s-h-o-f-u-t-t-m-e-n-t-.- -D-o- -n-o-t- -p--l-a-c-e- -a-n-y- -y-d-x-h-c-k-n-t-s-,- -r-c-l-a-m-s-,- -o-r- -h-s-a-i-o-n-s- -y-r-q-u-n-d- -y-o-u-r- -w-o-u-n-d- -o-r- -o-n- -t-h-e- -z-z-u-s-s-i-n-g-.- - - -A-v-o-i-d- -g-l-r-t-i-n-g- -h-m-u-s-i-d-e- -o-n- -h-o-t- -d-a-y-s-;- -e-r-s-k-x-a-i-v-e- -w-r-v-a-t-i-n-g- -c-a-n- -k-p-h-r-e-a-s-e- -t-h-e- -r-i-s-k- -o-f- -w-o-u-n-d- -g-z-t-c-w-u-i-o-n-.- -I-f- -t-h-e-r-e- -i-s- -e-v-m-i-n-a-g-e-,- -p-l-a-c--e- -a- -g-a-u-z-e- -e-l-f-s-s-i-n-g- -o-v-e-r- -t-h-e- -w-o-u-n-d-,- -b-q-q-u-r-e- -w-i-t-h- -p-a-p-e-r- -t-a-p-e-,- -a-n-d- -c-a-l-l- -y-o-u-r- -c-q-q-k-a-c-i-s-t-.- -A- -s-m-a-l-l- -c-y-c-u-n-t- -o-f- -a-w-q-i-n-a-g-e- -i-s- -z-b-w-e-c-t-e-d-.- -W-h-e-n- -y-o-u- -d-o- -b-a-t-h-e-,- -a-l-l-o-w- -s-o-a-p-y- -w-a-t-e-r- -t-o- -r-u-n- -o-v-e-r- -t-h-e- -w-o-u-s-s-i-n-g- -s-i-t-e-,- -b-u-t- -d-o- -n--o-t- -s-c-r-u-b- -t-h-e- -q-k-v-i-s-i-o-n- -o-r- -t-h-e- -z-w-e-s-s-i-n-g-.- -P-a-t- -t-h-e- -x-c-s-s-s-i-n-g- -s-i-t-e- -d-r-y- -w-i-t-h- -a- -t-o-w-e-l- -a-f-t-e-r- -y-o-u- -a-s-z-w-e-r-.- -D-O- -N-O-T- -t-a-k-e- -a- -b-a-t-h-,- -e-n-t-e-r- -a- -p-o-o-l-,- -l-a-k-e- -p-o-n-d-,- -o-r- -o-c-e-a-n- -u-n-t-i-l- -w-e- -q-m-k-c-u-s-s- -t-h-i-s- -a-t- -y-o-u-r- -g-w-y-t----o-p- -o-j-b-i-f-h-s-u-k-n-t-s--.- Prevena This is a negative pressure wound [...] to walk without your walker and your director day care center until the therapist checks you the following [...] laxatives as directed. * You may take yndj-dyk-otxptid Benadryl if itching occurs without a rash or hives. * Icing and elevation will help relieve pain as well, do not underestimate the power of ice and elevation. We do recommend that you stop taking narcotic pain medications by 4-6 weeks after surgery and if necessary, continue to use anti-inflammatory medications such as Mobic (meloxicam), Celebrex (celecoxib), or an rfff-zzb-gkugwbo medication (Aleve, Motrin, Ibuprofen, etc). Driving an [...] feel free to call our office at [phone]. You are a priority of ours and [...] % (Auto) 53.2, Lymph % (Auto) 28.3, [place] % (Auto) 14.5, Eos % (Auto) 2.7, Baso % (Auto) 1.3, Nucleat RBC Rel Count 0.1, Neut # (Auto) 3.4, Lymph # (Auto) 1.8, [place] # (Auto) 0.9 H, Eos # (Auto) 0.2, Baso # (Auto) 0.1, PHA Creatinine Clear 55.68, Sodium 136, Potassium 4.1, Chloride 106, Carbon Dioxide 22.1, AnionGap 12.0, BUN 23, Creatinine 0.70, Est GFR (CKD-EPI) > 60.0, Glucose 88, Calcium8.9 Documented By: Demarcus Barahona MD 08/31/24 14 23 Signed By: <Electronically signed by Demarcus Barahona MD> 08/31/24 1424 [facility] Work Phone: Evaluation + Plan note No data available for this section [facility] evaluation + Plan note Future Appointments Appointment Date:07/20/2023 12:45:00 PM Scheduled Provider: Location:[facility] Appointment Type:Surgery FT Diagnostic Tests Pending * Urine Culture [facility] Future Appointments Appointment Date:01/24/2025 09:45:00 AM Scheduled Provider:Keerthi Trujillo MD Location:[facility] Appointment Type:URO Office Visit [facility] evaluation + Plan note Future Appointments Appointment Date:02/27/2026 09:15:00 AM Scheduled Provider:Keerthi Trujillo MD Location:[facility] Appointment Type:URO Office Visit [facility] evaluation noteNo assessment information available [facility] Work Phone: Evaluation note* Diagnosis Migraine without aura and without status migrainosus, not intractable (CMS/HCC)- Primary Primary hypertension (CMS/HCC) Unspecified essential hypertension Flu vaccine need documented in this encounter [facility]* Diagnosis Migraine without aura and without status migrainosus, not intractable (CMS/HCC)- Primary Primary hypertension (CMS/HCC) Unspecified essential hypertension Ureteral stone Calculus of ureter Kidney stones Calculus of kidney documented in this encounter [facility] note* Diagnosis Migraine without aura and without status migrainosus, not intractable (CMS/HCC)- Primary Primary hypertension (CMS/HCC) Unspecified essential hypertension Personal history of kidney stones Personal history of urinary calculi documented in this encounter [facility]* Diagnosis Primary open angle glaucoma (POAG) of left eye, mild stage (CMS/HCC)- Primary Age-related nuclear cataract of left eye Dry eyes Unspecified tear film insufficiency Eye globe prosthesis Legal blindness, as defined in [place] documented in this encounter [facility]* Diagnosis Primary osteoarthritis of left knee- Primary Pre-operative examination Unspecified pre-operative examination Primary hypertension (CMS/HCC) Unspecified essential hypertension Chronic obstructive pulmonary disease, unspecified (CMS/HCC) Essential (hemorrhagic) thrombocythemia (CMS/HCC) History of primary malignant neoplasm of left lung documented in this encounter [facility]* Diagnosis Medicare annual wellness [...] ft knee acute August 17, 2024 1:05pm [facility] Work Phone: Evaluation note* Diagnosis Primary open angle glaucoma (POAG) of left eye, mild stage- Primary documented in this encounter [facility]* Diagnosis Primary open angle glaucoma (POAG) of left eye, mild stage- Primary Age-related nuclear cataract of left eye Dry eyes Unspecified tear film insufficiency Eye globe prosthesis documented in this encounter [facility]* Diagnosis Vertigo- Primary Dizziness and giddiness documented in this encounter [facility]* Diagnosis Vertigo- Primary Dizziness and giddiness documented in this encounter [facility]* Diagnosis Primary hypertension- Primary Unspecified essential hypertension Flu vaccine need CVD (cardiovascular disease) Unspecified cardiovascular disease Pure hypercholesterolemia, unspecified Primary osteoarthritis of left knee [facility] Discharge instructions No data available for this section [facility] Additional Instructions Joint Replacement Discharge Instructions Your safety during your recovery process is important to us. Please seek immediate emergency care if you have sudden chest pain or shortness of breath. Additionally, please call our office at [phone] should any of the following occur: wound [...] we discuss this at your post-op appointments. -T-b-u-a-c-e-l- - -T-h-i-s- -i-s- -a- -u-t-v-b-o-z---s-k-g-l-x-l-n-a-t-e-d- -z-k-h-s-s-i-n-g- -w-i-t-h- -o-f-s-v-a-k-o-t-i-c- -m-u-j-j-f-d-t-i-e-s- -t-h-a-t- -w-i-l-l- -s-t-a-y- -i-n- -p-l-a-c-e- -u-n-t-i-l- -y-o-u- -a-r-e- -s-e-e-n- -i-n- -t-h-e- -c-m-s-i-c-e- -f-o-r- -y-o-u-r- -2---w-e-e-k- -r-k-l-t---o-p- -o-q-o-q-v-u-t-m-e-n-t-.- -D-o- -n-o-t- -p-l-a-c-e- -a-n-y- -p-t-r-h-g-l-n-t-s-,- -d-a-j-a-m-s-,- -o-r- -a-c-a-i-o-n-s- -m-f-n-u-n-d- -y-o-u-r- -w-o-u-n-d- -o-r- -o-n- -t-h-e- -r-n-t-s-s-i-n-g-.- - -A-v-o-i-d- -o-f-i-t-i-n-g- -d-f-u-s-i-d-e- -o-n- -h-o-t- -d-a-y-s-;- -o-c-t-y-d-u-i-v-e- -p-n-v-a-t-i-n-g- -c-a-n- -v-e-y-r-e-a-s-e- -t-h-e- -r-i-s-k- -o-f- -w-o-u-n-d- -h-x-h-d-h-s-i-o-n-.- -I-f- -t-h-e-r-e- -i-s- -t-n-y-i-n-a-g-e-,- -p-l-a-c-e- -a- -g-a-u-z-e- -t-k-a-s-s-i-n-g- -o-v-e-r- -t-h-e- -w-o-u-n-d-,- -c-d-g-u-r-e- -w-i-t-h- -p-a-p-e-r- -t-a-p-e-,- -a-n-d- -c-a-l-l- -y-o-u-r- -g-a-z-h-v-q-i-s-t-.- -A- -s-m-a-l-l- -j-s-h-u-n-t- -o-f- -x-v-c-i-n-a-g-e- -i-s- -t-l-i-e-c-t-e-d-.- -W-h-e-n- -y-o-u- -d-o- -b-a-t-h-e-,- -a-l-l-o-w- -s-o-a-p-y- -w-a-t-e-r- -t-o- -r-u-n- -o-v-e-r- -t-h-e- -i-g-n-s-s-i-n-g- -s-i-t-e-,- -b-u-t- -d-o- -n-o-t- -s-c-r-u-b- -t-h-e- -w-q-r-i-s-i-o-n- -o-r- -t-h-e- -s-c-s-s-s-i-n-g-.- -P-a-t- -t-h-e- -i-l-u-s-s-i-n-g- -s-i-t-e- -d-r-y- -w-i-t-h- -a- -t-o-w-e-l- -a-f-t-e-r- -y-o-u- -n-g-q-w-e-r-.- -D-O- -N-O-T- -t-a-k-e- -a- -b-a-t-h-,- -e-n-t-e-r- -a- -p-o-o-l-,- -l-a-k-e- -p-o-n-d-,- -o-r- -o-c-e-a-n- -u-n-t-i-l- -w-e- -b-z-a-c-u-s-s- -t-h-i-s- -a-t- -y-o-u-r- -r-x-k-t---o-p- -l-w-f-w-l-y-o-x-g-n-t-s-.- Prevena This is a negative pressure wound [...] to walk without your walker and your director day care center until the therapist checks you the following [...] and/or laxatives as directed. You may take aktq-tje-xbwwgyq Benadryl if itching occurs without a rash or hives. Icing and elevation will help relieve pain as well, do not underestimate the power of ice and elevation. We do recommend that you stop taking narcotic pain medications by 4-6 weeks after surgery and if necessary, continue to use anti-inflammatory medications such as Mobic (meloxicam), Celebrex (celecoxib), or an oool-uyt-ztlmhbr medication (Aleve, Motrin, Ibuprofen, etc). Driving an [...] feel free to call our office at [phone]. You are a priority of ours and we will not be upset with you if you call. We would much rather you call to confirm aspects of your recovery process as opposed to possibly hindering your recovery with inappropriate care. We are committed to providing you with the best care possible. Demarcus Barahona II, MD Updated 06/21/23[facility] Work Phone: Progress note No data available for this section [facility] progress note Author Jazmin Ulrich [facility] Note Date/Time August 31, 2024 2:[address] [facility] [address] [place] [address] Hospitalist Progress Note Signed Patient: Jeannette Porter MR#: [id number] : 1945 Acct:[id number] Age/Sex: 79 / F Adm Date: 5 Loc: 4N Room: [address] [place] [address] Type: [facility] Attending Dr: Demarcus Barahona II, MD [...] Lactated Ringers IV 08/29/25 15:44 Not Given .[id number] DIMPLE Latanoprost 1 drops 08/30/24 09:00 08/30/24 08:53 Latanoprost 0.005% Op Soln 50 Drops/2.5 Ml Bottle EYE-LEFT 08/30/25 08:59 1drops QAM DIMPLE Administration Mineral Oil 1 each 09/01/24 15:06 Mineral Oil ([place]) 1 Each Enema ME ONCE PRN Constipation Morphine Sulfate 15 mg [...] signed by Roberto Ware MD> 08/31/24 1404 [facility] Work Phone: Reason for referral (narrative)No reason for referral information available[facility] Work Phone: Reason for visit Narrative* Rehabilitation - Outpatient (Routine) - Authorized Specialty Diagnoses / Procedures Referred By Contac t Referred To Contact Physical Therapy Diagnoses Vertigo Procedures ME OFFICE/OUTPATIENT NEW HIGH MDM 60 MINUTES Adarsh Manrique MD [address] [place] [address] Phone: tel: fax: Adeline Noguera, MARIO Referral ID Status Reason Start Date Expiration Date Visits Requested Visits Authorized [id number] Authorized Specialty Services Required 11/24/2024 05/22/2025 10 10 [facility] - Outpatient (Routine) - Closed Specialty Diagnoses / Procedures Referred By Contac t Referred To Contact Physical Therapy Diagnoses Vertigo Procedures ME OFFICE/OUTPATIENT NEW HIGH MDM 60 MINUTES Adarsh Manrique MD [address] [place] [address] Phone: tel: fax: Adeline Noguera, MARIO Referral ID Status Reason Start Date Expiration Date V isits Requested Visits Authorized [id number] Closed Specialty Services Required 11/24/2024 05/22/2025 10 10 [facility] Summary Purpose Family History No Family History [...] aura and without status migrainosus, not intractable ([facility]) Adarsh Manrique MD [address] [place] [address] Referral ID Status Reason Start Date Expiration Date V isits Requested Visits Authorized [id number] Pending Review 02/14/2024 08/12/2024 1 1 Chief [...] Admit Date Primary osteoarthritis of left knee Cheatn 2024 1:05pm Primary osteoarthritis of left knee [...] DATE CREATED AUTHOR AUTHOR'S ORGANIZ ATION 02/23/2025 [facility] DATE CREATED AUTHOR AUTHOR'S ORGANIZ ATION 02/23/2025 [facility] EPIC DATE CREATED AUTHOR AUTHOR'S ORGANIZ ATION 03/11/2025 [facility] Goals (unrecognized section and content) [...] team informatio n (unrecognized section and content) Site Manager Relationship Specialty Start Date End Date Adarsh Manrique MD [address] [facility] [address] [place] [address] PCP - General Internal Medicine 10/23/22 Adarsh Manrique MD [address] [facility] [address] [place] [address] PCP - ACO Reach 10/22/22 Site Manager Relationship Specialty Start Date End Date Adarsh Manrique MD [address] [facility] [address] [place] [address] PCP - General Internal Medicine 10/23/22 Adarsh Manrique MD [address] [facility] [address] [place] [address] PCP - ACO Reach 10/22/22 Site Manager Relationship Specialty Start Date End Date Adarsh Manrique MD [address] [facility] [address] [place] [address] PCP - General Internal Medicine 10/23/22 Adarsh Manrique MD [address] [facility] [address] [place] [address] PCP - ACO Reach 10/22/22 Site Manager Relationship Specialty Start Date End Date Adarsh Manrique MD [address] [facility] [address] [place] [address] PCP - General Internal Medicine 10/23/22 Adarsh Manrique MD [address] [facility] [address] [place] [address] PCP - ACO Reach 10/22/22 Site Manager Relationship Specialty Start Date End Date Adarsh Manrique MD [address] [facility] [address] [place] [address] PCP - General Internal Medicine 10/23/22 Adarsh Manrique MD [address] [facility] [address] [place] [address] PCP - ACO Reach 10/22/22 Site Manager Relationship Specialty Start Date End Date Adarsh Manrique MD [address] [facility] [address] [place] [address] PCP - General Internal Medicine 10/23/22 Adarsh Manrique MD [address] [facility] [address] [place] [address] PCP - ACO Reach 10/22/22 Site Manager Relationship Specialty Start Date End Date Adarsh Manrique MD [address] [facility] [address] [place] [address] PCP - General Internal Medicine 10/23/22 Adarsh Manrique MD [address] [facility] [address] [place] [address] PCP - ACO Reach 10/22/22 Site Manager Relationship Specialty Start Date End Date Adarsh Manrique MD [address] [facility] [address] [place] [address] PCP - General Internal Medicine 10/23/22 Adarsh Manrique MD [address] [facility] [address] [place] [address] PCP - ACO Reach 10/22/22 Team Status: [...] Attending Provider Active Start: June 08, 2024 Site Manager Relationship Specialty Start Date End Date Adarsh Manrique MD [address] [facility] [address] [place] [address] PCP - General Internal Medicine 10/23/22 Adarsh Manrique MD [address] [facility] [address] [place] [address] PCP - ACO Reach 10/22/22 Site Manager Relationship Specialty Start Date End Date Adarsh Manrique MD [address] [facility] [address] [place] [address] PCP - General Internal Medicine 10/23/22 Adarsh Manrique MD [address] [facility] [address] [place] [address] PCP - ACO Reach 10/22/22 Site Manager Relationship Specialty Start Date End Date Adarsh Manrique MD [address] [facility] [address] [place] [address] PCP - General Internal Medicine 10/23/22 Adarsh Manrique MD [address] [facility] [address] [place] [address] PCP - ACO Reach 10/22/22 Site Manager Relationship Specialty Start Date End Date Adarhs Manrique MD [address] [place] [address] [place] [address] PCP - General Internal Medicine 10/23/22 Adarsh Manrique MD [address] [facility] [address] [place] [address] PCP - ACO Reach 10/22/22 Team Status: [...] End: August 31, 2024 Nhi Graham , PUBLIC HEALTH OUTREACH WORKER Other Provider Active Start: August 29, 2024 [...] 2024 End: August 31, 2024 Lauren Soto ARTIST'S MODEL-C Other Provider Active St art: August 29, 2024 End: August 31, 2024 Wade Rose , PUBLIC HEALTH OUTREACH WORKER Other Provider Active Star t: August 29, [...] art: August 29, 2024 Sangita Zamora , PUBLIC HEALTH OUTREACH WORKER Other Provider Active St art: August 29, [...] Other Provider Active Start: A pril 2024 Site Manager Relationship Specialty Start Date End Date Adarsh Manrique MD [address] [place] [address] [place] [address] PCP - General Internal Medicine 10/23/22 Adarsh Manrique MD [address] [place] [address] [place] [address] PCP - ACO Reach 10/22/22 Team Status: [...] October 18, 2024 End: October 18, 2024 Site Manager Relationship Specialty Start Date End Date Adarsh Manrique MD [address] [place] [address] [place] [address] PCP - General Internal Medicine 10/23/22 Adarsh Manrique MD [address] [place] [address] [place] [address] PCP - ACO Reach 10/22/22 Site Manager Relationship Specialty Start Date End Date Adarsh Manrique MD [address] [facility] [address] [place] [address] PCP - General Internal Medicine 10/23/22 Adarsh Manrique MD [address] [place] [address] [place] [address] PCP - ACO Reach 10/22/22 Team Status: [...] November 29, 2024 End: November 29, 2024 Site Manager Relationship Specialty Start Date End Date Adarsh Manrique MD [address] [facility] [address] [place] [address] PCP - General Internal Medicine 10/23/22 Adarsh Manrique MD [address] [facility] [address] [place] [address] PCP - ACO Reach 10/22/22 Reason for [...] BE BASED ON THE PRIMARY CLINICAL RECORDS. [employer] provides no warranty or guarantee of the accuracy or completeness of information in this document.
== END 2025-03-15 13:08 | disposition home or self-care (01) ==
LOC: CARD 13:08
PROVIDERS: PCP Internal Medicine; Visit Provider Internal Medicine Cardiovascular Disease
DX: Z12.31 Encounter for screening mammogram for malignant neoplasm of breast (principal); R06.09 Other forms of dyspnea
CPT/HCPCS: 77063; 77067; 93306